=== PATIENT | male | born 1955 | race Caucasian/White ===

== ENCOUNTER → 2016-11-07 | Day surgery (SDC) | payer OTHER ==
[2016-10-23 10:39] VITALS: Ht 177.8 cm; Wt 79.5 kg
[~2016-11-07] VITALS: Ht 177.8 cm; Wt 79.5 kg
[~2016-11-07] MED LIST: 500ML BSS 0.3ML EPI 1:1000PF IRRIG ONE; ACETAMINOPHEN 325 MG TAB PO PRN; AMLO-110 PO; AMOX875T PO; AMVISC PLUS 0.8ML SYRINGE INT OCU ONE; ASPEC81 PO; AcetaZOLAMIDE 500 MG CAPCR ONE; AcetylCHOLine CHL OP SOL 1:100 2 ML BTL ONE; BSS FLUSH ONE; ENDOCOAT 0.85ML SYRINGE INT OCU ONE; EpINEphrine INJ 1MG/ML AMP 1 MG/ML AMP ONE; GABA1CAP4 PO; INSDGI SC; INSDGIPEN SC; INSUINJ14 SC; LACTATED RINGER'S 1000ML 500 ML IV SCH; LIDOCAINE 4% OP SOLN DROP CHARGE ONE; LIDOCAINE 4% OP SOLN DROP CHARGE OPR SCH; LIDOCAINE HCL 1% MPF 2 ML VIAL ONE; LISI-725 PO; LPT40 PO; MIDAZOLAM HCL 1 MG/ML 2ML VIAL ONE; MIX: 4ML BSS 1ML EPI 1:1000 PF TOP ONE; MOXIFLOXACIN OPH SOLN PER DROP CHARGE ONE; NRN/100 PO; NURSING VERBAL MED ORDER ONE; NVLG SQ; POVIDONE-IODINE OP SOLN 30 ML BTL ONE; PROPARACAINE 0.5% OP SOLN PER DROP CHARGE OPR SCH; TOBRAMYCIN/DEXAMETHASONE OPH OINT PER APPLN CHARGE ONE
--- NOTE | 2016-11-07 06:44 | History & Physical Bridge - SC ---
H&P Re-Evaluation Bridge Note: I have examined the patient, reviewed the History & Physical and in the interval since the performance of the History & Physical I have noted the following changes of clinical significance: No changes noted. Right eye cataract surgery.
[2016-11-07] MEDS: PHENYLEPHRINE HCL 2.5% OP SOLN PER DROP CHARGE OPR SCH ×3 (06:46→06:54)
[2016-11-07] MEDS: TROPICAMIDE 1% OP SOLN PER DROP CHARGE OPR SCH ×3 (06:47→06:55)
[2016-11-07] MEDS: CYCLOPENTOLATE HCL 1% OP SOLN PER DROP CHARGE OPR SCH ×3 (06:47→06:55)
[2016-11-07] MEDS: MOXIFLOXACIN OPH SOLN PER DROP CHARGE OPR SCH ×3 (06:48→06:56)
--- NOTE | 2016-11-07 08:18 | [facility] Post Operative Brief Note ---
Immediate Operative Summary Operative Date November 07, 2016. Pre-Operative Diagnosis Right eye cataract Post-Operative Diagnosis Same as preop Procedure(s) Performed Right Cataract Phacoemulsification With Intraocular Lens Implant Surgeon Dr. Rock Bandoleer Packer Surgeon(s) None Estimated Blood Loss 0 mL Findings right cataract Specimens None Complication(s) None Disposition
--- NOTE | 2016-11-07 08:21 | [facility] Operative Report ---
Operative Report Date of Service November 07, 2016. Operative Report Phaco with monofocal IOL DATE OF OPERATION: 11/07/16 PREOPERATIVE DIAGNOSIS: Senile nuclear cataract, right eye POSTOPERATIVE DIAGNOSIS: Senile nuclear cataract, right eye PROCEDURE PERFORMED: Phacoemulsification with intraocular lens implantation, right eye SURGEON: Dr. Vin Rock ANESTHESIA: Topical with 1% intracameral lidocaine and monitored anesthesia care COMPLICATIONS: None DESCRIPTION OF PROCEDURE: After positively identifying the patient both verbally and by wristband in the preoperative area, the right eye was marked as the operative eye. The patient was then brought back to the operating room by the anesthesia and nursing staff where they were given a drop of Lidocaine and betadine into the operative eye. They were then sterilely prepped and draped in the standard fashion typical for ophthalmic surgery. Steri-strips were placed along the upper eyelids to keep the lashes back, and a lid speculum was placed into the operative eye. At this point, a documented time out was performed with members of the ophthalmology, nursing, and anesthesia staffs all agreeing upon the correct patient, correct location for surgery, correct procedure, and correct type and power of intraocular lens to be implanted. The microscope was then swung into position. First, a paracentesis wound was made using a sideport blade. Then, in sequence, 1% preservative-free lidocaine followed by Endocoat viscoelastic was injected into the anterior chamber. Next , the main incision was made with a keratome blade in triplanar fashion. A sharp cystotome was introduced into the eye and used to create a tear in the anterior capsule, and Utrata forceps were used to try to create a circular capsulotomy. The inferior edge ran out and had to be rescued with the cystotome , and a new starting area was created superotemporally and finished with Utrata forceps. Hydrodissection was then performed with BSS on a flat-tip cannula. Next, the phacoemulsification handpiece was introduced into the eye and used to remove the nucleus in a [id number] fashion. This was done without complication and then the irrigation-aspiration handpiece was introduced into the eye and used to remove all remaining cortical and epinuclear material. A radialized tear into the posterior capsule was noted inferiorly and Amvisc was injected with no presentation of vitreous noted. Amvisc was then injected into the anterior chamber as well as into the capsular bag and using the lens injector system, an LI61AO 16.5 D lens, serial number [id number], and expiration date 05/2017 was injected into the sulcus and rotated into the correct position. Next, the irrigation-aspiration handpiece was used to remove all remaining Amvisc. BSS was used to hydrate the main wound, and then BSS was injected into the paracentesis site to reach physiologic pressure and then the main wound was checked and found to be watertight. Miochol was injected and demonstrated a round pupil. The patient was given drops of Vigamox and Tobradex ointment into the operative eye, and then the surrounding area was cleaned and dried. A clear plastic shield was placed over the eye and the patient was then sat up and taken from the operating room by the anesthesia staff having tolerated the procedure well and suffering no complications. DISPOSITION: The patient was returned to the recovery room in stable condition. I attest to the content of the Intraoperative Record and any orders documented therein. Any exceptions are noted below.
[2016-11-07 08:22] VITALS: TEMP 36.6
--- NOTE | 2016-11-07 08:22 | Discharge Instructions-SurgCtr ---
Discharge Instructions Date of Service November 07, 2016. Visit Reason for Visit: Cataract Right Eye Discharge Discharge Diagnosis / Problem: right cataract Discharge Goals Goal(s): Decrease discomfort, Improve function Activity Recommendations Activity Limitations: as noted below Anesthesia . Post Anesthesia Instructions: If you have had General Anesthesia or IV Sedation: * Do not drive today. * Resume driving when surgeon permits. * Do not make important decisions or sign legal documents today. * Call surgeon for: 1. Temperature elevations greater than 101 degrees F. 2. Uncontrollable pain. 3. Excessive bleeding. 4. Persistent nausea and vomiting. 5. Medication intolerance (nausea, vomiting or rash). * For nausea and vomiting use only clear liquids such as: tea, soda, bouillon until nausea subsides, then gradually increase diet as tolerated. * If you have any concerns or questions, call your surgeon's office. If physician is unavailable and it is an emergency, call 911 or go to the nearest emergency room. . Instructions / Follow-Up Instructions / Follow-Up ACTIVITY RECOMMENDATIONS: * Light activities. * You may walk outside, read, watch television. * You may notice redness on the white part of the eye and some blurry vision - this is normal. MEDICATIONS: Resume previous medications unless instructed otherwise by your surgeon. Start all eye drops at 10:30 am today: * Eye drops (today): Prednisone - one drop in operative eye every 2 hours while awake Polytrim - one drop in operative eye every 2 hours while awake Bromfenac - one drop in operative eye daily SPECIAL CARE INSTRUCTIONS: * Tape plastic shield over eye to sleep at night. Call your doctor at with any concerns or problems. FOLLOW UP VISIT: Follow-up with Dr Rock at [facility] as scheduled. Diet Recommendations Home Diet: no limitations Procedures Procedures Performed: Right Cataract Phacoemulsification With Intraocular Lens Implant Pending Studies Studies pending at discharge: no Medical Emergencies . Who to Call and When: Medical Emergencies: If at any time you feel your situation is an emergency, please call 911 immediately. . Non-Emergent Contact Non-Emergency issues call your: Surgeon . . "Provider Documentation" section prepared by Vin Rock. .
--- NOTE | 2016-11-07 08:34 | Anesthesia Progress Nt - [facility] ---
Anesthesia Post Op Note Date & Time November 07, 2016 at 08:34 Vital Signs Pain Intensity: 0 Vital Signs Past 12 Hours Date Time Temp Pulse Resp B/P Pulse Ox O2 Delivery O2 Flow Rate FiO2 11/07/16 08:22 36.6 68 16 170/75 100 Room Air 11/07/16 06:36 36.7 64 16 169/96 98 Room Air Notes Mental Status: alert / awake / arousable, participated in evaluation Pt Amnestic to Procedure: Yes Nausea / Vomiting: adequately controlled Pain: adequately controlled Airway Patency, RR, SpO2: stable & adequate BP & HR: stable & adequate Hydration State: stable & adequate Anesthetic Complications: no major complications apparent
[2016-11-07 08:58] VITALS: BP 150/80; PULSE 69; O2SAT 100
== END | disposition home or self-care (01) ==
LOC: X.SURG 06:08
PROVIDERS: ATTEND Ophthalmology
DX: H25.11 Age-related nuclear cataract, right eye (principal); E11.9 Type 2 diabetes mellitus without complications; Z79.4 Long term (current) use of insulin; Z83.3 Family history of diabetes mellitus; I10 Essential (primary) hypertension

== ENCOUNTER 2016-12-15 10:39 | Inpatient (IN) | payer OTHER ==
[2016-12-15] VITALS (9 sets, daily range): BP systolic 158–188; BP diastolic 82–105; PULSE 63–69; TEMP 36.3–37.1; O2SAT 99–100; BMI 25.1
[~2016-12-15] VITALS: Ht 177.8 cm; Wt 79.0 kg
[~2016-12-15 10:39] MED LIST changes: -500ML BSS 0.3ML EPI 1:1000PF IRRIG ONE; -ACETAMINOPHEN 325 MG TAB PO PRN; -AMLO-110 PO; -AMOX875T PO; -AMVISC PLUS 0.8ML SYRINGE INT OCU ONE; -AcetaZOLAMIDE 500 MG CAPCR ONE; -AcetylCHOLine CHL OP SOL 1:100 2 ML BTL ONE; -BSS FLUSH ONE; -ENDOCOAT 0.85ML SYRINGE INT OCU ONE; -EpINEphrine INJ 1MG/ML AMP 1 MG/ML AMP ONE; -GABA1CAP4 PO; -INSDGIPEN SC; -LACTATED RINGER'S 1000ML 500 ML IV SCH; -LIDOCAINE 4% OP SOLN DROP CHARGE ONE; -LIDOCAINE 4% OP SOLN DROP CHARGE OPR SCH; -LIDOCAINE HCL 1% MPF 2 ML VIAL ONE; -LPT40 PO; -MIDAZOLAM HCL 1 MG/ML 2ML VIAL ONE; -MIX: 4ML BSS 1ML EPI 1:1000 PF TOP ONE; -MOXIFLOXACIN OPH SOLN PER DROP CHARGE ONE; -NURSING VERBAL MED ORDER ONE; -NVLG SQ; -POVIDONE-IODINE OP SOLN 30 ML BTL ONE; -PROPARACAINE 0.5% OP SOLN PER DROP CHARGE OPR SCH; -TOBRAMYCIN/DEXAMETHASONE OPH OINT PER APPLN CHARGE ONE
[2016-12-15] MEDS ORDERED: LPT40 PO (11:05)
[2016-12-15] MEDS ORDERED: INSDGIPEN SC (11:05)
[2016-12-15] MEDS ORDERED: NVLG SQ (11:05)
--- NOTE | 2016-12-15 11:45 | EMERGENCY ROOM VISIT NOTE ---
History Report prepared by Lety: Wilman Ann Under the Supervision of: Dr. Jose Francisco Menon M.D. First contact with patient: 10:58 Chief Complaint: TOE PAIN, INJURY Stated Complaint: LEFT TOE INFECTION History of Present Illness The patient is a 61 year old male who presents to the Emergency Room with complaints of a left toe injury that began two days ago. The patient is currently not in any pain. At this time, the lift of a tractor fell on his toe. He thinks that it could be infected secondary to the color. He has a past medical history of diabetes. He denies any other symptoms. Source of History: patient Onset: two days ago Position: toe(s) (left third) Symptom Intensity: No pain Quality: other (No pain) Timing: constant Note: He denies any abnormal symptoms at this time. Review of Systems See HPI for pertinent positives & negatives. A total of 10 systems reviewed and were otherwise negative. Past Medical & Surgical Medical Problems: (1) Diabetic neuropathy (2) DM type 1 (diabetes mellitus, type 1) (3) History of osteomyelitis (4) PVD (peripheral vascular disease) (5) Stroke Surgical Problems: (1) H/O eye surgery (2) S/P amputation of lesser toe (3) S/P debridement Family History Diabetes mellitus Hypertension Social History Smoking Status: Never Smoker Drug Use: none Marital Status: single Occupation Status: retired Current/Historical Medications Scheduled Aspirin (Aspirin EC Low Dose), 81 MG PO QAM Atorvastatin (Atorvastatin Calcium), 40 MG PO QAM Gabapentin (Neurontin), 300 MG PO TID Insulin Aspart (Novolog), 1 DOSE SQ UD Insulin Glargine (Lantus Solostar), 40 UNITS SC QAM Lisinopril (Zestril), 20 MG PO QAM Allergies Coded Allergies: Levofloxacin (Verified Allergy, Unknown, "nervous", 12/15/16) Shrimp (Verified Adverse Reaction, Unknown, NAUSEA, 12/15/16) Physical Exam Vital Signs Date Time Temp Pulse Resp B/P (MAP) Pulse Ox O2 Delivery O2 Flow Rate FiO2 12/15/16 12:49 61 18 165/80 100 Room Air 12/15/16 10:50 36.6 84 16 149/84 98 Physical Exam GENERAL: Patient is a healthy-appearing well-nourished male HEAD: Normocephalic atraumatic EYES: Ocular movements intact pupils equal and react to light OROPHARYNX mucous membranes are moist no exudates present no erythema or edema present NECK: Supple no nuchal rigidity CHEST: Good equal expansion LUNGS: Clear and equal to auscultation CARDIAC: Normal S1 and S2 ABDOMEN: Soft nontender no guarding BACK: No CVA tenderness EXTREMITIES: Left third toe is necrotic. Bone is sticking out. Smells like pseudomonas. NEURO: Patient is following commands and answering questions appropriately. Alert and oriented x3 Cranial Nerves 2-12 grossly intact Medical Decision & Procedures ER Provider Diagnostic Interpretation: X-ray results as stated below per interpretation by me and the radiologist: LEFT TOE(S) MIN 2 VIEWS CLINICAL HISTORY: Third left pain trauma. Infection. COMPARISON: None. DISCUSSION: Erosive or destructive changes involving the middle phalanx of the left third toe. The distal phalanx. Of been surgically removed.. Surgical removal of the phalanges of the fourth toe as well as distal phalanx of the second toe. Linear pin traversing the distal aspect of the second metatarsal. Moderate soft tissue edema. IMPRESSION: Osteomyelitis middle phalanx left third toe. Resection of several phalanges of the second through fourth toes. Electronically signed by: Nathan Bazan M.D. 12/15/2016 11:46 AM Dictated Date/Time: 12/15/2016 11:44 AM Laboratory Results 12/15/16 11:50 Red Blood Count 3.87, Mean Corpuscular Volume 87.1, Mean Corpuscular Hemoglobin 30.2, Mean Corpuscular Hemoglobin Concent 34.7, Mean Platelet Volume 10.2, Neutrophils (%) (Auto) 73.1, Lymphocytes (%) (Auto) 16.7, Monocytes (%) (Auto) 8.0, Eosinophils (%) (Auto) 0.9, Basophils (%) (Auto) 0.2, Neutrophils # (Auto) 4.88, Lymphocytes # (Auto) 1.11, Monocytes # (Auto) 0.53, Eosinophils # (Auto) 0.06, Basophils # (Auto) 0.01 12/15/16 11:50 Test 12/15/16 11:50 White Blood Count 6.66 K/uL (4.8-10.8) Red Blood Count 3.87 M/uL (4.7-6.1) Hemoglobin 11.7 g/dL (14.0-18.0) Hematocrit 33.7 % (42-52) Mean Corpuscular Volume 87.1 fL (80-100) Mean Corpuscular Hemoglobin 30.2 pg (25-34) Mean Corpuscular Hemoglobin Concent 34.7 g/dl (32-36) Platelet Count 280 K/uL (130-400) Mean Platelet Volume 10.2 fL (7.4-10.4) Neutrophils (%) (Auto) 73.1 % Lymphocytes (%) (Auto) 16.7 % Monocytes (%) (Auto) 8.0 % Eosinophils (%) (Auto) 0.9 % Basophils (%) (Auto) 0.2 % Neutrophils # (Auto) 4.88 K/uL (1.4-6.5) Lymphocytes # (Auto) 1.11 K/uL (1.2-3.4) Monocytes # (Auto) 0.53 K/uL (0.11-0.59) Eosinophils # (Auto) 0.06 K/uL (0-0.5) Basophils # (Auto) 0.01 K/uL (0-0.2) RDW Standard Deviation 39.5 fL (36.4-46.3) RDW Coefficient of Variation 12.4 % (11.5-14.5) Immature Granulocyte % (Auto) 1.1 % Immature Granulocyte # (Auto) 0.07 K/uL (0.00-0.02) Prothrombin Time 12.5 SECONDS (9.0-12.0) Prothromb Time International Ratio 1.2 (0.9-1.1) Anion Gap 8.0 mmol/L (3-11) Est Creatinine Clear Calc Drug Dose 24.9 ml/min Estimated GFR () 22.4 Estimated GFR (Non- 19.4 BUN/Creatinine Ratio 17.9 (10-20) Calcium Level 8.6 mg/dl (8.5-10.1) Labs reviewed by ED physician. Medications Administered Medications (Trade) Dose Ordered Sig/Pati Route Start Time Stop Time Status Last Admin Dose Admin Piperacillin Sod/ Tazobactam Sod (Zosyn Iv) 4.5 gm NOW STAT IV 12/15/16 12:02 12/15/16 12:04 DC 12/15/16 12:10 4.5 GM Daptomycin 480 mg/ Sodium Chloride 59.6 ml @ 100 mls/hr NOW STAT IV 12/15/16 12:20 12/15/16 12:55 DC 12/15/16 12:51 100 MLS/HR Sodium Chloride 1,000 ml @ 999 mls/hr Q1H1M STAT IV 12/15/16 12:39 12/15/16 13:39 12/15/16 12:50 999 MLS/HR ED Course 1058: Past medical records reviewed. The patient was evaluated in room A4. A complete history and physical examination was performed. 1202: Ordered Zosyn Iv 4.5 gm IV 1205:l I spoke with Dr. Chaidez of orthopedics at this time. Please see the consultation note for further information. 1220: Ordered Daptomycin 480 mg/ Sodium Chloride 59.6 ml @ 100 mls/hr IV 1239: Ordered Sodium Chloride 1000 ml @ 999 mls/hr IV 1243: Upon reexamination the patient is resting. I discussed results and treatment plan with the patient. He verbalizes agreement and understanding. I spoke with Jonathan Edwards PA-C from the [facility] Hospitalist Service. The patient will be evaluated for further management. Medical Decision Differential diagnosis: Etiologies such as cellulitis, abscess, MRSA infection, DVT, necrotizing fasciitis, dermatitis, drug eruption, as well as others were entertained.. Medication Reconciliation: I attest that I have personally reviewed the patient' s current medication list Blood Pressure Screening: Patient was found to have normal blood pressure on screening and does not require follow up. His is a 61-year-old male who presents emergency department complaining of toe injury that occurred on . The bone is sticking out of the toe in the emergency department and there is a whitish discharge. I suspect that is grossly infected and the toe itself appears necrotic. The patient is in acute renal failure therefore an IV was established and he was given a normal saline bolus. He was started on Zosyn as well as daptomycin. I did discuss the case with both the hospitalist as well as orthopedics who were in agreement with the treatment plan. Consults Time Called: 1200 Consulting Physician: Dr. Chaidez - Ortho Returned Call: 1205 We discussed the patient's case. He said that the patient should be admitted to medicine, and he will evaluate the patient on Saturday. Additional Consults: Time Called: 1240 Consulted Physician: Clemente Rouse PA-C Returned Call: 1243 Additional Comments: He will be evaluating the patient for further management and care. Impression Primary Impression: Acute renal failure Additional Impression: Toe infection Scribe Attestation The scribe's documentation has been prepared under my direction and personally reviewed by me in its entirety. I confirm that the note above accurately reflects all work, treatment, procedures, and medical decision making performed by me. Departure Information Dispostion Being Evaluated By Hospitalist Referrals Bravo Robles III, M.D. (PCP) Patient Instructions [facility] Problem Qualifiers Primary Impression: Acute renal failure Acute renal failure type: unspecified Qualified Codes: N17.9 - Acute kidney failure, unspecified
--- NOTE | 2016-12-15 11:48 | DIAGNOSTIC IMAGING REPORT ---
LEFT TOE(S) MIN 2 VIEWS CLINICAL HISTORY: Third left pain trauma. Infection. COMPARISON: None. DISCUSSION: Erosive or destructive changes involving the middle phalanx of the left third toe. The distal phalanx. Of been surgically removed.. Surgical removal of the phalanges of the fourth toe as well as distal phalanx of the second toe. Linear pin traversing the distal aspect of the second metatarsal. Moderate soft tissue edema. IMPRESSION: Osteomyelitis middle phalanx left third toe. Resection of several phalanges of the second through fourth toes. Electronically signed by: Nathan Bazan M.D. 12/15/2016 11:46 AM Dictated Date/Time: 12/15/2016 11:44 AM
[2016-12-15] MEDS ORDERED: PIPERACILLIN/TAZOBACTAM 4.5 GM/100ML D5W IV STA (12:02)
[2016-12-15 12:17] LABS: BASO % 0.2 %; BASO ABS # 0.01 K/uL (0-0.2); COMPLETE YES; EOS % 0.9 %; HEMATOCRIT 33.7 % (42-52); IG% 1.1 %; LYMPH % 16.7 %; LYMPH ABS # 1.11 K/uL (1.2-3.4); MEAN CELL VOLUME 87.1 fL (80-100); MEAN CORPUSCULAR HEMOGLOBIN 30.2 pg (25-34); MEAN CORPUSCULAR HGB CONC 34.7 g/dl (32-36); MEAN PLATELET VOLUME 10.2 fL (7.4-10.4); NEUT % 73.1 %; PLATELET COUNT 280 K/uL (130-400); RED BLOOD COUNT 3.87 M/uL (4.7-6.1); WHITE BLOOD COUNT 6.66 K/uL (4.8-10.8)
[2016-12-15] MEDS ORDERED: DAPTOmycin IV 480 MG in SODIUM CHLORIDE 0.9% 50ML 50 ML IV STA (12:20)
[2016-12-15 12:34] LABS: BUN/CREATININE RATIO 17.9 (10-20); CALCIUM 8.6 mg/dl (8.5-10.1); CREATININE 3.3 mg/dl (0.60-1.40)
[2016-12-15] MEDS ORDERED: SODIUM CHLORIDE 0.9% 1000ML 1,000 ML IV STA (12:39)
[2016-12-15 13:12] LABS: INR 1.2 (0.9-1.1); PROTHROMBIN TIME (PATIENT) 12.5 SECONDS (9.0-12.0)
--- NOTE | 2016-12-15 13:34 | History and Physical ---
History & Physical Date & Time of Service: Dec 15, 2016 at 13:24 Chief Complaint: Left Toe Infection Primary Care Physician: Bravo Robles III, M.D. History of Present Illness Source: patient, family (Brother present) Attending: Dr. Stewart This is a 61 yo male that has a history of DM Type I with previous multiple left toe amputations that injured his left 3rd toe 2 days ago. Last night he began to clean his injured toe to avoid infection and pulled a scab off revealing exposed bone. He then presented to the ED this morning for further evaluation and treatment. He has no pain to the toe and was started on Daptomycin IV. Ortho has been consulted and Dr. Chaidez stated that he will most likely entertain amputation in the OR tomorrow. Patient also found to be in acute renal failure with a creatinine of 3.3 with BUN of 59. Aside from his acute injury, the patient has no other complaints. He denies SOB, chest pain, nausea, vomiting, diarrhea, recent illness or travel. Past Medical/Surgical History Medical Problems: (1) Diabetic neuropathy Status: Chronic (2) DM type 1 (diabetes mellitus, type 1) Status: Chronic (3) History of osteomyelitis Status: Chronic (4) PVD (peripheral vascular disease) Status: Chronic Surgical Problems: (1) H/O eye surgery Status: Chronic (2) S/P amputation of lesser toe Permanent Comment: right second and third toe Status: Chronic (3) S/P debridement Permanent Comment: 02/03/2016- debridement L foot wound dehiscence Status: Chronic Family History Diabetes mellitus Hypertension Social History Smoking Status: Never Smoker Alcohol Use: socially (2 or 3 times per year) Drug Use: none Marital Status: single 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) Immunizations History of Influenza Vaccine: N/A Influenza Vaccine Date: Jul 05, 2012 History of Tetanus Vaccine?: Unknown History of Pneumococcal: Unknown History of Hepatitis B Vaccine: Unknown Multi-Drug Resistant Organisms History of MDRO: No Allergies Coded Allergies: Levofloxacin (Verified Allergy, Unknown, "nervous", 12/15/16) Shrimp (Verified Adverse Reaction, Unknown, NAUSEA, 12/15/16) Home Medications Scheduled Aspirin (Aspirin EC Low Dose), 81 MG PO QAM Atorvastatin (Atorvastatin Calcium), 40 MG PO QAM Gabapentin (Neurontin), 300 MG PO TID Insulin Aspart (Novolog), 1 DOSE SQ UD Insulin Glargine (Lantus Solostar), 40 UNITS SC QAM Lisinopril (Zestril), 20 MG PO QAM Review of Systems A total of 12 systems was reviewed and is negative other than as listed above in the HPI Physical Exam Vital Signs Date Time Temp Pulse Resp B/P (MAP) Pulse Ox O2 Delivery O2 Flow Rate FiO2 12/15/16 12:49 61 18 165/80 100 Room Air 12/15/16 10:50 36.6 84 16 149/84 98 Vital Signs - as noted below Laboratory Data - as noted below Physical Exam: General - NAD, Pleasant Eyes - No icterus, gaze conjugate. PERRL ENT - Mucosa moist, no lesions or candidiasis Neck - Supple, No JVD. No bruits or stridor Lungs - No bronchospasm, rales, or rhonchi. Good aeration Heart - Regular, rate controlled. No appreciation of murmurs Abdomen - Soft, NT, ND, BS present. No pain with palpation Extremities - No edema, pedal pulses intact. Dressing dry and intact to left 3rd toe Neuro - A&OX3. No pronator drift. Cerebellar function intact with NIRAJ, FTN, HTS. Diagnostics Laboratory Results Results Past 24 Hours Test 12/15/16 11:50 Range/Units White Blood Count 6.66 4.8-10.8 K/uL Red Blood Count 3.87 4.7-6.1 M/uL Hemoglobin 11.7 14.0-18.0 g/dL Hematocrit 33.7 42-52 % Mean Corpuscular Volume 87.1 80-100 fL Mean Corpuscular Hemoglobin 30.2 25-34 pg Mean Corpuscular Hemoglobin Concent 34.7 32-36 g/dl Platelet Count 280 130-400 K/uL Mean Platelet Volume 10.2 7.4-10.4 fL Neutrophils (%) (Auto) 73.1 % Lymphocytes (%) (Auto) 16.7 % Monocytes (%) (Auto) 8.0 % Eosinophils (%) (Auto) 0.9 % Basophils (%) (Auto) 0.2 % Neutrophils # (Auto) 4.88 1.4-6.5 K/uL Lymphocytes # (Auto) 1.11 1.2-3.4 K/uL Monocytes # (Auto) 0.53 0.11-0.59 K/uL Eosinophils # (Auto) 0.06 0-0.5 K/uL Basophils # (Auto) 0.01 0-0.2 K/uL RDW Standard Deviation 39.5 36.4-46.3 fL RDW Coefficient of Variation 12.4 11.5-14.5 % Immature Granulocyte % (Auto) 1.1 % Immature Granulocyte # (Auto) 0.07 0.00-0.02 K/uL Prothrombin Time 12.5 9.0-12.0 SECONDS Prothromb Time International Ratio 1.2 0.9-1.1 Sodium Level 143 136-145 mmol/L Potassium Level 5.0 3.5-5.1 mmol/L Chloride Level 111 98-107 mmol/L Carbon Dioxide Level 24 21-32 mmol/L Anion Gap 8.0 3-11 mmol/L Blood Urea Nitrogen 59 7-18 mg/dl Creatinine 3.30 0.60-1.40 mg/dl Est Creatinine Clear Calc Drug Dose 24.9 ml/min Estimated GFR () 22.4 Estimated GFR (Non- 19.4 BUN/Creatinine Ratio 17.9 10-20 Random Glucose 184 70-99 mg/dl Calcium Level 8.6 8.5-10.1 mg/dl Microbiology Results 12/15/16 Blood Culture, Received Pending 12/15/16 Blood Culture, Received Pending 12/15/16 Gram Stain, Received Pending 12/15/16 Wound Culture, Received Pending Diagnostic Radiology LEFT TOE(S) MIN 2 VIEWS CLINICAL HISTORY: Third left pain trauma. Infection. COMPARISON: None. DISCUSSION: Erosive or destructive changes involving the middle phalanx of the left third toe. The distal phalanx. Of been surgically removed.. Surgical removal of the phalanges of the fourth toe as well as distal phalanx of the second toe. Linear pin traversing the distal aspect of the second metatarsal. Moderate soft tissue edema. IMPRESSION: Osteomyelitis middle phalanx left third toe. Resection of several phalanges of the second through fourth toes. Electronically signed by: Nathan Bazan M.D. 12/15/2016 11:46 AM Echo from January 2016 Interpretation Summary * Name: SAVANA FISCHER Study Date: 02/08/2016 08:16 AM BP: 142/76 mmHg Patient Location: - HR: 68 : 1955 (M/d/yyyy) Gender: Male Height: 70 in Age: 60 yrs Ethnicity: [place] Weight: 174 lb Ordered By: Gisela Goodrich MDPerformed By: Ludy Mcqueen Reason For Study: STROKE BSA: 2.0 m2 History: STROKE, DIABETES, SEPSIS. * The left ventricle is normal in size. There is normal left ventricular wall thickness. Left ventricular systolic function is normal. The left ventricular wall motion is normal. Ejection Fraction = 60-65%. Procedure Details * A complete two-dimensional transthoracic echocardiogram was performed (2D, M- mode, Doppler and color flow Doppler). A saline contrast injection was performed to assess for cardiac shunting. The injection was performed through an intravenous line in the right arm. A total of 20 cc of agitated saline was given. Left Ventricle * The left ventricle is normal in size. * There is normal left ventricular wall thickness. * Ejection Fraction = 60-65%. * Left ventricular systolic function is normal. * The left ventricular wall motion is normal. Right Ventricle * The right ventricle is normal in size and function. Atria * The left atrial size is normal. * Right atrial size is normal. * No ASD detected; PFO is not assessed. Mitral Valve * The mitral valve anatomy is normal. * There is no mitral valve stenosis. * There is trace mitral regurgitation. Tricuspid Valve * The tricuspid valve anatomy is normal. * There is no tricuspid stenosis. * There is trace tricuspid regurgitation. Aortic Valve * The aortic valve is trileaflet. * No hemodynamically significant valvular aortic stenosis. * No aortic regurgitation is present. Pulmonic Valve * The pulmonic valve is not well visualized. Great Vessels * The aortic root is normal size. Pericardium/Pleural * There is no pericardial effusion. Great Vessels * Normal inferior vena cava diameter and respiratory variation suggests normal central venous pressure. Impression Assessment and Plan CRUSH INJURY OF LEFT 3RD TOE Exposed bone No significant bleeding Denies pain Ortho consult Anticipate need for amputation ABX with Zosyn and Daptomycin ID consulted - spoke with Dr. Salgado IDDM TYPE I Uses Lantus and Novolog SSI at home Continue while inpatient with glycemic consult per pharmacy Random glucose 131 Hold Lantus for anticipated surgery tomorrow PERIPHERAL NEUROPATHY Continue Gabapentin Frequent pain checks due to crush injury of left toe RENAL Chronic kidney disease stage III with GFR 30-59 Currently in acute failure with Dried Yeast Supervisor of 3.3 IV hydration - NSS at 125 mL/hr Repeat Dried Yeast Supervisor at 1700 3.1 Continue fluid hydration Strict I&Os Appears to be volume contracted with BUN of 59 PERIPHERAL VASCULAR DISEASE Not on anticoagulation or antiplatelet agents as an outpatient Good pulses appreciated in all extremities Monitor clinically HTN Lisinopril 20 mg PO daily as an outpatient Hydralazine 10 mg Q6H ordered First dose given with marginal results Heart rate in the 60s DVT PROPHYLAXIS Heparin Sub Q pending surgical procedure Please refer to Dr. Stewart's Addendum for further recommendations. Level of Care Med/Surg Resuscitation Status FULL RESUSCITATION VTE Prophylaxis VTE Risk Assessment Done? Y/N: Yes Risk Level: Moderate Given or contraindicated: Unfractionated heparin SQ Social Service Consult None Apply Note ATTENDING ADDENDUM Record reviewed. Patient interviewed and examined. Care coordinated with Jonathan Edwards PA-C. Please refer to her documentation for patient's history. Briefly, 61-year-old diabetic who injured his left third toe a few days ago when a front cold press loader fell upon it. EXAM: General- no acute distress VS- as noted HEENT- anicteric Neck- no JVD Lungs- clear to auscultation Heart- RRR Abdomen- normal bowel sounds, soft, nontender Extremities- trace pretibial edema; right DP palpable; other pedal pulses not palpable; capillary refill toes of both feet 1-2 seconds; status post amputation of left fourth and right third toes; status post distal amputation of multiple other toes; ulcer measuring approximately 1 cm lateral aspect of left third toe, extending to deep tissue, with pearly drainage Neuro- alert DATA: Lab studies as noted. ASSESSMENT AND PLAN: Osteomyelitis left third toe. IV antibiotic therapy with daptomycin and piperacillin/tazobactam. Orthopedics consulted for surgical management. KEN. CKD with superimposed acute kidney injury. Serum creatinine now elevated, possibly secondary to volume depletion. Hold lisinopril. IV fluids. Avoid potential nephrotoxins. Please refer to BERT Edwards's documentation for discussion of other issues. Bravo Stewart MD .
[2016-12-15] MEDS ORDERED: ONDANSETRON INJ 2 MG/ML 2 ML VIAL IV PRN (14:30)
[2016-12-15] MEDS ORDERED: GLUCAGON FOR INJ 1 MG VIAL SQ PRN (14:30)
[2016-12-15] MEDS ORDERED: MAGNESIUM HYDROXIDE SUSP 30 ML UDC PO PRN (14:30)
[2016-12-15] MEDS ORDERED: GLUCOSE 40% GEL 15 GM TUBE PO PRN (14:30)
[2016-12-15] MEDS ORDERED: DEXTROSE 50% 50 ML SYR IV PRN (14:30)
[2016-12-15] MEDS ORDERED: ACETAMINOPHEN 325 MG TAB PO PRN (14:30)
[2016-12-15] MEDS ORDERED: GLUCOSE 10 TABS/TUBE PO PRN (14:30)
[2016-12-15] MEDS ORDERED: DC ALL PREVIOUSLY ORDERED DIABETES MEDS ONE (14:30)
[2016-12-15] MEDS ORDERED: ALUMINUM/MAGNESIUM/SIMETH (MAALOX MAX) 30 ML UDC PO PRN (14:30)
[2016-12-15] MEDS ORDERED: POLYETHYLENE (MIRALAX) 17 GM PACK PO PRN (15:15)
[2016-12-15] MEDS ORDERED: PHARMACY GLYCEMIC MGMT CONSULT PRN (15:22)
[2016-12-15] MEDS ORDERED: PIPERACILL/TAZOBAC CONSULT ACTIVE PRN (15:30)
[2016-12-15] MEDS: HEPARIN SOD 5000 UNIT/0.5 ML CARP SQ SCH ×2 (15:30→21:17)
--- NOTE | 2016-12-15 15:40 | Pharmacy Progress Note ---
Glycemic Control Intl Consult Date of Service Dec 15, 2016. Scope Glycemic Pharmacist consulted by Fabi Edwards on 12/15/16 for glycemic control and to write orders per [facility] inpatient glycemic control protocol Objective Weight (Kilograms): 79.000 Accuchecks BSG (last 24hrs): Test 12/15/16 11:50 12/15/16 14:47 Random Glucose 184 mg/dl (70-99) Bedside Glucose 131 mg/dl (70-99) Laboratory Data (last 24hrs) Test 12/15/16 11:50 Anion Gap 8.0 mmol/L BUN/Creatinine Ratio 17.9 Blood Urea Nitrogen 59 mg/dl Creatinine 3.30 mg/dl Potassium Level 5.0 mmol/L Sodium Level 143 mmol/L White Blood Count 6.66 K/uL Red Blood Count 3.87 M/uL Hemoglobin 11.7 g/dL Hematocrit 33.7 % Mean Corpuscular Volume 87.1 fL Mean Corpuscular Hemoglobin 30.2 pg Mean Corpuscular Hemoglobin Concent 34.7 g/dl Platelet Count 280 K/uL Mean Platelet Volume 10.2 fL Neutrophils (%) (Auto) 73.1 % Lymphocytes (%) (Auto) 16.7 % Monocytes (%) (Auto) 8.0 % Eosinophils (%) (Auto) 0.9 % Basophils (%) (Auto) 0.2 % Neutrophils # (Auto) 4.88 K/uL Lymphocytes # (Auto) 1.11 K/uL Monocytes # (Auto) 0.53 K/uL Eosinophils # (Auto) 0.06 K/uL Basophils # (Auto) 0.01 K/uL Recent Pertinent Medications Outpatient Anti-diabetic Regimen: * Lantus 40 untis qAM, Novolog per SS * A1c outdated from 2016. Updated A1c ordered with tomorrow's AM labs. Risk Factors for Insulin Resistance: * Infection: Osteomyelitis of toe; On Daptomycin and Zosyn * Recent Surgery: Plan for OR tomorrow for toe amputation * Diet: AHA/DM1 --> NPO after 00 in prep for OR Assessment & Plan ASSESSMENT: * ADA & AACE recommend a goal blood sugar range 140-180 mg/dl for the majority of critically ill & non-critically ill patients. However, more stringent targets may be selected in individual cases. * 61 yo male admitted for open L toe wound (bone exposed) secondary to injury. Pt has a h/o of multiple L toe amputations in the past. * Pt with h/o type 1 diabetes. He has been followed by the pharmacy glycemic service during past admissions. * BSG on admission today was 184 mg/dl. 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 No additional Lantus needed today. * During past admission the pt required about 50% of Lantus outpatient dose. Will use past admission data to guide dosing of Lantus and Novolog at least initially PLAN FOR INPATIENT GLYCEMIC CONTROL: * Start tomorrow AM -- Lantus 10 units SQ BID * Novolog ACHS * Set correction factor to 25 mg/dl/unit * Set carb ratio to 1 unit per 8 grams CHO consumed * Set goal range to Low 110 mg/dL - High 150 mg/dL * Please note that the plan above was derived based on current level of insulin resistance and hospital stress. These recommendations are appropriate for inpatient admission only. Plan of care upon discharge will need to be reassessed to avoid potential outpatient hypo/hyperglycemia. Thank you.
[2016-12-15] MEDS ORDERED: DAPTOMYCIN CONSULT ACTIVE PRN ×2 (15:45)
[2016-12-15] MEDS: HydrALAZINE 10 MG TAB PO PRN ×2 (16:06→21:55)
[2016-12-15] MEDS: PIPERACILL/TAZOBAC IV 3.375 GM in DEXTROSE 5% 100ML 100 ML IV SCH ×2 (16:32→23:58)
[2016-12-15 17:20] LABS: BUN/CREATININE RATIO 17.3 (10-20); CALCIUM 8.5 mg/dl (8.5-10.1); CREATININE 3.1 mg/dl (0.60-1.40); POTASSIUM 4.9 mmol/L (3.5-5.1)
[2016-12-15] MEDS: SODIUM CHLORIDE 0.9% 1000ML 1,000 ML IV SCH (17:46)
[2016-12-15] MEDS: INSULIN ASPART 100 UNITS/ML 3 ML PEN SC SCH ×2 (18:00→21:16)
[2016-12-15] MEDS ORDERED: CLONIDINE HCL 0.1 MG TAB PO PRN (20:45)
[2016-12-15] MEDS ORDERED: AMLODIPINE BESYLATE 5 MG TAB PO ONE (21:15)
[2016-12-15] MEDS: GABAPENTIN 300 MG CAP PO SCH (21:51)
--- NOTE | 2016-12-15 22:10 | DIAGNOSTIC IMAGING REPORT ---
CHEST ONE VIEW PORTABLE CLINICAL HISTORY: osteomyelitis dyspnea COMPARISON STUDY: 02/17/2016 FINDINGS: The bones soft tissues and hemidiaphragms are normal. The cardiomediastinal silhouette is normal. The lungs are clear. The pulmonary vasculature is normal. IMPRESSION: Negative chest. Electronically signed by: Nathan Bazan M.D. 12/15/2016 10:09 PM Dictated Date/Time: 12/15/2016 10:09 PM
[2016-12-16] VITALS (11 sets, daily range): BP systolic 132–186; BP diastolic 66–98; PULSE 55–71; TEMP 36.3–36.6; O2SAT 96–100
[2016-12-16] MEDS ORDERED: NURSING VERBAL MED ORDER ONE
[2016-12-16] MEDS: SODIUM CHLORIDE 0.9% 1000ML 1,000 ML IV SCH ×3 (04:30→18:47)
[2016-12-16] MEDS: INSULIN ASPART 100 UNITS/ML 3 ML PEN SC SCH ×4 (05:52→21:17)
[2016-12-16 07:06] LABS: HEMATOCRIT 31.3 % (42-52); MEAN CELL VOLUME 86.9 fL (80-100); MEAN CORPUSCULAR HEMOGLOBIN 29.4 pg (25-34); MEAN CORPUSCULAR HGB CONC 33.9 g/dl (32-36); MEAN PLATELET VOLUME 10.1 fL (7.4-10.4); PLATELET COUNT 266 K/uL (130-400); WHITE BLOOD COUNT 6.76 K/uL (4.8-10.8)
[2016-12-16 07:39] LABS: BUN/CREATININE RATIO 15.5 (10-20); CALCIUM 8.1 mg/dl (8.5-10.1); CREATININE 3.1 mg/dl (0.60-1.40); POTASSIUM 5.4 mmol/L (3.5-5.1)
[2016-12-16] MEDS: PIPERACILL/TAZOBAC IV 3.375 GM in DEXTROSE 5% 100ML 100 ML IV SCH ×3 (07:45→23:48)
[2016-12-16] MEDS: INSULIN GLARGINE SOLOSTAR 100 UNITS/ML 3 ML PEN SC SCH ×2 (07:49→21:15)
--- NOTE | 2016-12-16 08:17 | Progress Note ---
Medicine Progress Note Date & Time of Visit: Dec 16, 2016 at 08:00 . Subjective No fever. No chest pain. No cough or SOB. No nausea, vomiting, diarrhea. No urinary symptoms. No foot pain. Schedule for OR this morning. NPO. . Objective Last 8 Hrs Date Time Temp Pulse Resp B/P (MAP) Pulse Ox O2 Delivery O2 Flow Rate FiO2 12/16/16 07:06 36.6 64 19 133/75 (94) 96 Room Air 12/16/16 03:26 70 139/75 (96) Physical Exam: General- no distress Neck- no JVD Lungs- clear Heart- RRR Abdomen- + BS, soft, nontender Extremities- no pretibial edema or calf tenderness; mild erythema left medial calf; ulcer lateral left 3rd toe Neuro- alert, oriented . Laboratory Results: Last 24 Hours Test 12/15/16 11:50 12/15/16 14:47 12/15/16 16:50 12/15/16 17:03 White Blood Count 6.66 K/uL Red Blood Count 3.87 M/uL Hemoglobin 11.7 g/dL Hematocrit 33.7 % Mean Corpuscular Volume 87.1 fL Mean Corpuscular Hemoglobin 30.2 pg Mean Corpuscular Hemoglobin Concent 34.7 g/dl Platelet Count 280 K/uL Mean Platelet Volume 10.2 fL Neutrophils (%) (Auto) 73.1 % Lymphocytes (%) (Auto) 16.7 % Monocytes (%) (Auto) 8.0 % Eosinophils (%) (Auto) 0.9 % Basophils (%) (Auto) 0.2 % Neutrophils # (Auto) 4.88 K/uL Lymphocytes # (Auto) 1.11 K/uL Monocytes # (Auto) 0.53 K/uL Eosinophils # (Auto) 0.06 K/uL Basophils # (Auto) 0.01 K/uL RDW Standard Deviation 39.5 fL RDW Coefficient of Variation 12.4 % Immature Granulocyte % (Auto) 1.1 % Immature Granulocyte # (Auto) 0.07 K/uL Prothrombin Time 12.5 SECONDS Prothromb Time International Ratio 1.2 Sodium Level 143 mmol/L 145 mmol/L Potassium Level 5.0 mmol/L 4.9 mmol/L Chloride Level 111 mmol/L 114 mmol/L Carbon Dioxide Level 24 mmol/L 23 mmol/L Anion Gap 8.0 mmol/L 8.0 mmol/L Blood Urea Nitrogen 59 mg/dl 54 mg/dl Creatinine 3.30 mg/dl 3.10 mg/dl Est Creatinine Clear Calc Drug Dose 24.9 ml/min 26.5 ml/min Estimated GFR () 22.4 24.2 Estimated GFR (Non- 19.4 20.9 BUN/Creatinine Ratio 17.9 17.3 Random Glucose 184 mg/dl 116 mg/dl Calcium Level 8.6 mg/dl 8.5 mg/dl Hepatitis C Antibody Screen NEG Bedside Glucose 131 mg/dl 113 mg/dl Test 12/15/16 20:36 12/15/16 23:52 12/16/16 00:00 12/16/16 05:49 Bedside Glucose 248 mg/dl 205 mg/dl 168 mg/dl Test 12/16/16 06:43 White Blood Count 6.76 K/uL Red Blood Count 3.60 M/uL Hemoglobin 10.6 g/dL Hematocrit 31.3 % Mean Corpuscular Volume 86.9 fL Mean Corpuscular Hemoglobin 29.4 pg Mean Corpuscular Hemoglobin Concent 33.9 g/dl RDW Standard Deviation 39.6 fL RDW Coefficient of Variation 12.3 % Platelet Count 266 K/uL Mean Platelet Volume 10.1 fL Sodium Level 143 mmol/L Potassium Level 5.4 mmol/L Chloride Level 113 mmol/L Carbon Dioxide Level 21 mmol/L Anion Gap 9.0 mmol/L Blood Urea Nitrogen 48 mg/dl Creatinine 3.10 mg/dl Est Creatinine Clear Calc Drug Dose 26.5 ml/min Estimated GFR () 24.2 Estimated GFR (Non- 20.9 BUN/Creatinine Ratio 15.5 Random Glucose 173 mg/dl Calcium Level 8.1 mg/dl Date/Time Source Procedure Growth Status 12/15/16 12:00 Blood Blood Culture Pending Received 12/15/16 11:50 Blood Blood Culture Pending Received 12/15/16 11:50 Incision Site Toe Left 3 Gram Stain - Final Resulted 12/15/16 11:50 Incision Site Toe Left 3 Wound Culture Pending Resulted Assessment & Plan OSTEOMYELITIS LEFT 3rd TOE Afebrile. Wound and blood cultures pending. Orthopedics consulted. Continue IV antibiotic therapy with daptomycin and piperacillin / tazobactam. HYPERTENSION BP's as high as 188 systolic. Lisinopril held due to KEN. Started on amlodipine. Clonidine or hydralazine PRN. BP this morning = 133/75. Follow and titrate Rx. ACUTE KIDNEY INJURY / CKD III CKD III due to diabetic nephropathy with baseline creatinine of 1.4 on 10/17/16. Serum creatinine on admission 3.3. Denies regular use of NSAID's. Acute kidney injury probably due to volume depletion and / or sepsis. Holding lisinopril. IV fluids. Creatinine today = 3.1. Consult Nephropathy. Follow. DM TYPE 1 History of poor control. Hgb A1C pending. Pharmacy consulted for glycemic management. Lantus + NovoLog per protocol. FBS this morning = 168. VTE PROPHYLAXIS SQ heparin - hold for OR. Ambulate as able. DISPOSITION Expected discharge to home. Family Medicine follow-up with Dr. Robles. . Consultants: Orthopedics with Dr. Chaidez. . Procedures: IV antibiotics . Current Inpatient Medications: Current Inpatient Medications Medications (Trade) Dose Ordered Sig/Pati Route Start Time Stop Time Status Last Admin Dose Admin Acetaminophen (Tylenol Tab) 650 mg Q4H PRN PO 12/15/16 14:30 01/14/17 14:29 Al Hydrox/Mg Hydrox/Simethicone (Maalox Max Susp) 15 ml Q4H PRN PO 12/15/16 14:30 01/14/17 14:29 Magnesium Hydroxide (Milk Of Magnesia Susp) 30 ml Q6H PRN PO 12/15/16 14:30 01/14/17 14:29 Polyethylene (Miralax Powder Packet) 17 gm DAILY PRN PO 12/15/16 15:15 01/14/17 15:14 Ondansetron HCl (Zofran Inj) 4 mg Q6H PRN IV 12/15/16 14:30 01/14/17 14:29 Heparin Sodium (Porcine) (Heparin Sq 5000 Unit/0.5ml) 5,000 unit Q12 SQ 12/15/16 15:30 01/14/17 15:29 12/15/16 21:17 5,000 UNIT Glucose (Glucose 40% Gel) 15-30 GRAMS 15 GRAMS... UD PRN PO 12/15/16 14:30 01/14/17 14:29 Glucose (Glucose Chew Tab) 4-8 Tablets 4 Tabl... UD PRN PO 12/15/16 14:30 01/14/17 14:29 Dextrose (Dextrose 50% 50ML Syringe) 25-50ML OF 50% DW IV FOR... UD PRN IV 12/15/16 14:30 01/14/17 14:29 Glucagon (Glucagon Inj) 1 mg UD PRN SQ 12/15/16 14:30 01/14/17 14:29 Miscellaneous Information (Consult Glycemic Management Pharmacy) 1 ea UD PRN N/A 12/15/16 15:22 01/14/17 15:21 Daptomycin 480 mg/ Sodium Chloride 59.6 ml @ 100 mls/hr Q48H IV 12/17/16 12:00 01/28/17 11:59 Piperacillin Sod/ Tazobactam Sod 3.375 gm/Dextrose 115 ml @ 28.75 mls/ hr Q8H IV 12/15/16 16:00 01/26/17 15:59 12/16/16 07:45 28.75 MLS/HR Hydralazine HCl (Apresoline Tab) 10 mg Q6H PRN PO 12/15/16 15:00 01/14/17 14:59 12/15/16 21:55 10 MG Piperacillin Sod/ Tazobactam Sod (Consult) 1 ea UD PRN N/A 12/15/16 15:30 01/14/17 15:29 Daptomycin (Consult) 1 ea UD PRN N/A 12/15/16 15:45 01/14/17 15:44 Insulin Glargine (Lantus Solostar Pen) 10 unit BID SC 12/16/16 09:00 01/15/17 08:59 12/16/16 07:49 10 UNIT Sodium Chloride 1,000 ml @ 125 mls/hr Q8H IV 12/15/16 16:30 01/14/17 16:29 12/16/16 04:30 125 MLS/HR Aspirin (Ecotrin Tab) 81 mg QAM PO 12/16/16 09:00 01/15/17 08:59 Gabapentin (Neurontin Cap) 300 mg TID PO 12/15/16 21:30 01/14/17 21:29 12/15/16 21:51 300 MG Amlodipine Besylate (Norvasc Tab) 5 mg QAM PO 12/16/16 09:00 01/15/17 08:59 Clonidine HCl (Catapres Tab) 0.1 mg Q4H PRN PO 12/15/16 20:45 01/14/17 20:44 Insulin Aspart (novoLOG ASPART) SLIDING SCALE If C... Q6 SC 12/16/16 06:00 01/15/17 05:59
[2016-12-16] MEDS ORDERED: ATORVASTATIN 40 MG TAB PO SCH (09:00)
[2016-12-16] MEDS ORDERED: LISINOPRIL 20 MG TAB PO SCH (09:00)
--- NOTE | 2016-12-16 09:20 | Progress Note ---
Progress Note Date of Service Dec 16, 2016. Progress Note ID Consult Dictated #[id number] A/P: 1. Left 3rd toe osteo -Continue abx for now, await culture results -For amp today, await OR findings -Will follow, thank you
--- NOTE | 2016-12-16 09:59 | Orthopedic Progress Note ---
Orthopedic Progress Note Date of Service Dec 16, 2016. Subjective Reports: feeling well, Denies: complaints, chest pain, SOB, nausea / vomiting, light headedness, calf pain Additional Notes: Patient states he is hungry this morning but he understands that is because of having surgery this morning for his left 3rd toe. Objective calves soft nontender, capillary refill less than 2 sec., A&O x3, toes mobile Left foot demonstrates necrotic tissue at the tip of the 3rd toe. He has good ROM of other toes. Previous surgery noted on other toes with partial amputation. Pulses were compared bilateral and were equal. Decreased sensation over the 3rd toe of his left foot. Good ROM and strength at the ankle joint Date Time Temp Pulse Resp B/P (MAP) Pulse Ox O2 Delivery O2 Flow Rate FiO2 12/16/16 07:40 Room Air 12/16/16 07:06 36.6 64 19 133/75 (94) 96 Room Air 12/16/16 03:26 70 139/75 (96) 12/15/16 23:45 Room Air 12/15/16 23:17 37.1 69 15 158/82 (107) 99 Room Air 12/15/16 22:32 163/88 (113) 12/15/16 18:38 165/84 (111) 12/15/16 17:45 63 20 183/105 (131) 99 Room Air 12/15/16 17:05 36.3 63 16 170/103 (125) 99 Room Air 12/15/16 16:00 99 Room Air 12/15/16 14:34 36.5 64 16 188/92 (124) 99 Room Air 12/15/16 14:01 67 16 179/93 98 12/15/16 13:48 100 Room Air 12/15/16 12:49 61 18 165/80 100 Room Air 12/15/16 10:50 36.6 84 16 149/84 98 Laboratory Results 24 Hours: Test 12/15/16 11:50 12/16/16 06:43 White Blood Count 6.66 K/uL Red Blood Count 3.87 M/uL Hemoglobin 11.7 g/dL 10.6 g/dL Hematocrit 33.7 % 31.3 % Mean Corpuscular Volume 87.1 fL Mean Corpuscular Hemoglobin 30.2 pg Mean Corpuscular Hemoglobin Concent 34.7 g/dl Platelet Count 280 K/uL Mean Platelet Volume 10.2 fL Neutrophils (%) (Auto) 73.1 % Lymphocytes (%) (Auto) 16.7 % Monocytes (%) (Auto) 8.0 % Eosinophils (%) (Auto) 0.9 % Basophils (%) (Auto) 0.2 % Neutrophils # (Auto) 4.88 K/uL Lymphocytes # (Auto) 1.11 K/uL Monocytes # (Auto) 0.53 K/uL Eosinophils # (Auto) 0.06 K/uL Basophils # (Auto) 0.01 K/uL Prothromb Time International Ratio 1.2 Prothrombin Time 12.5 SECONDS Assessment & Plan Assessment: Left 3rd toe osteomyelitis Plan: Patient is scheduled for surgery this morning for a left 3rd toe amputation. Inhouse Planning DVT Prophylaxis: Heparin Drip Discharge Planning Discharge Planning: uncertain
[2016-12-16] MEDS ORDERED: PROPOFOL IV EMULSION 10 MG/ML 20 ML VIAL IV ONE (10:30)
[2016-12-16] MEDS ORDERED: MIDAZOLAM HCL 1 MG/ML 2ML VIAL ONE ×2 (10:30→10:56)
[2016-12-16] MEDS ORDERED: FENTANYL CITRATE INJ 50 MCG/1 ML 2 ML VIAL ONE (10:31)
--- NOTE | 2016-12-16 10:31 | History & Physical Bridge Note ---
H&P Re-Evaluation Bridge Note: I have examined the patient, reviewed the History & Physical and in the interval since the performance of the History & Physical I have noted the following changes of clinical significance: No changes noted
[2016-12-16] MEDS ORDERED: BUPIVACAINE 0.5 % 5 MG/1 ML MPF 30ML VIAL ONE (10:53)
[2016-12-16] MEDS ORDERED: LIDOCAINE HCL 1% 20 ML VIAL ONE (10:53)
[2016-12-16] MEDS ORDERED: BACITRACIN 50000 UNIT VIAL ONE (10:53)
[2016-12-16] MEDS ORDERED: ONDANSETRON INJ 2 MG/ML 2 ML VIAL IV PRN (11:15)
[2016-12-16] MEDS ORDERED: FENTANYL CITRATE INJ 50 MCG/1 ML 2 ML VIAL IV PRN (11:15)
[2016-12-16] MEDS ORDERED: EpHEDrine SULFATE INJ 50 MG/ML AMP IV PRN (11:15)
[2016-12-16] MEDS ORDERED: PROMETHAZINE HCL INJ 6.25 MG in SODIUM CHLORIDE 0.9% 50ML 50 ML IV PRN (11:15)
[2016-12-16] MEDS ORDERED: ATROPINE SULFATE 0.1 MG/ML 5ML SYR IV PRN (11:15)
--- NOTE | 2016-12-16 11:43 | [facility] Post Operative Brief Note ---
Immediate Operative Summary Operative Date Dec 16, 2016. Pre-Operative Diagnosis left 3rd toe gangrene and oestomyelitis Post-Operative Diagnosis same Procedure(s) Performed let 3rd toe amputation Surgeon paniagua Fiber Worker Surgeon(s) BERT Mendenhall Estimated Blood Loss 5 cc Findings gross infetion and osteo at tip of toe. no infection at surgical site Specimens cultures Drains no Anesthesia local mac Complication(s) None Disposition Recovery Room / PACU
--- NOTE | 2016-12-16 12:26 | Anesthesiology Progress Note ---
Anesthesia Post Op Note Date & Time Dec 16, 2016 at 12:25 Vital Signs Pain Intensity: 0 Vital Signs Past 12 Hours Date Time Temp Pulse Resp B/P (MAP) Pulse Ox O2 Delivery O2 Flow Rate FiO2 12/16/16 12:20 64 16 151/83 100 Room Air 12/16/16 12:15 36.4 63 14 164/83 100 Room Air 12/16/16 12:05 66 14 147/83 100 Room Air 12/16/16 11:55 67 12 156/84 100 Room Air 12/16/16 11:47 35.4 71 12 155/77 100 Room Air 12/16/16 07:40 Room Air 12/16/16 07:06 36.6 64 19 133/75 (94) 96 Room Air 12/16/16 03:26 70 139/75 (96) Notes Mental Status: alert / awake / arousable, participated in evaluation Pt Amnestic to Procedure: Yes Nausea / Vomiting: adequately controlled Pain: adequately controlled Airway Patency, RR, SpO2: stable & adequate BP & HR: stable & adequate Hydration State: stable & adequate Anesthetic Complications: no major complications apparent
--- NOTE | 2016-12-16 12:56 | INFECT. DISEASE CONSULTATION ---
DATE OF CONSULTATION: 12/16/2016 REQUESTING PHYSICIAN: Dr. Stewart. HISTORY OF PRESENT ILLNESS: This is a 61-year-old gentleman who was admitted after he had a crush injury to his left 3rd toe. He has had multiple amputations for infection there in the past and prior to admission he was cleaning the wound and noted that there was exposed bone. He did have an x-ray which confirmed osteomyelitis of the third digit. He is planned to have amputation later today. A wound culture was obtained in the ER and the Gram stain has few gram positive cocci. Blood cultures are pending. He has not had fevers or leukocytosis. He denies any pain in the foot but has significant neuropathy. He was placed on daptomycin and Zosyn, and is tolerating these well. Infectious diseases was asked to see this patient for daptomycin approval. He does have elevated creatinine of 3.1. Currently, he is out of bed to chair. He has no fevers or chills. He has no cough, shortness of breath, chest pain, nausea, vomiting, diarrhea or abdominal pain. He denies any pain in the foot. All remaining review of systems were reviewed and are unremarkable. PAST MEDICAL HISTORY: Significant for diabetes with associated neuropathy, history of osteomyelitis, peripheral vascular disease. PAST SURGICAL HISTORY: Significant for eye surgery, multiple amputations of the toe and foot debridements. FAMILY HISTORY: Noncontributory. SOCIAL HISTORY: Negative for tobacco use. He drinks rarely. He denies any drug use. ALLERGIES: LEVAQUIN AND IODINE. CURRENT MEDICATIONS: Include daptomycin, insulin, aspirin, Norvasc, NovoLog, Neurontin, clonidine, Zosyn, MiraLax, Tylenol, hydralazine, Zofran, milk of magnesia. PHYSICAL EXAMINATION: VITAL SIGNS: He is afebrile, pulse 64, respiratory rate is 19, blood pressure is 133/75, oxygen saturation is 96%-99% on room air. GENERAL: He is awake, alert and oriented x3. He is in no acute distress. HEENT: Mucous membranes are moist. Extraocular muscles are intact. HEART: Regular. LUNGS: Clear. ABDOMEN: Soft. EXTREMITIES: There is no lower extremity edema. Examination of the toe reveals a wound over the distal aspect of the digit with no purulent drainage or bleeding. There is no surrounding erythema, warmth, or edema. LABORATORY STUDIES: CBC reveals a white blood cell count of 6.7, hemoglobin 10.6, platelets are 266. Chemistry panel reveals a sodium of 143, potassium chloride 113, bicarbonate 21, BUN 48, creatinine 3.1, glucose is 173. Wound culture has GPCs. Chest x-ray is negative. Toe x-ray confirms osteomyelitis. ASSESSMENT AND PLAN: 1. Osteomyelitis of the left third digit for amputation today. He can remain on empiric antibiotics pending the results of his wound culture; however, surgery may be carried. I will await the OR findings and make further recommendations based on OR findings and culture results. Thank you for this consultation. LARS
[2016-12-16] MEDS: GABAPENTIN 300 MG CAP PO SCH ×2 (13:27→21:06)
[2016-12-16] MEDS: ASPIRIN 81 MG ECTAB PO SCH (13:27)
[2016-12-16] MEDS: AMLODIPINE BESYLATE 5 MG TAB PO SCH (13:28)
--- NOTE | 2016-12-16 15:44 | OPERATIVE REPORT ---
DATE OF OPERATION: 12/16/2016 PREOPERATIVE DIAGNOSIS: Left 3rd toe gangrene with osteomyelitis. POSTOPERATIVE DIAGNOSIS: Same. PROCEDURE: Left 3rd toe amputation. SURGEON: Garrett Chaidez MD MAIL DISTRIBUTION CLERK: Prabhjot Mendenhall PA-C who was necessary for prepping, draping, retraction, exposure and closure. ANESTHESIA: Digital block with sedation. INDICATIONS: This is a 61-year-old gentleman with progressive pain and an open wound over the left 3rd toe. He presents with exposed bone and concern for osteomyelitis. He has a history of diabetic neuropathy. The risks and benefits have been discussed including, but not limited to, risk of infection, nerve injury, stiffness, loss of motion, failure to improve, etc.? The patient is agreeable and wishes to proceed. DESCRIPTION OF PROCEDURE: I made an elliptical fish mouth incision directly over the 3rd toe. Dissection was carried down through the skin and subcutaneous tissue then transected the flexor and extensor tendons and allowed them to retract proximally. I disarticulated the toe at the metatarsophalangeal level and the toe was passed off the table. Cultures were taken from the tip of the toe as there was gross infection and pus in that area. There is no evidence of infection in the region of the proximal portion of the amputation site. The tourniquet was let down and there was adequate bleeding in the area. Incision was then irrigated with 1 liter of saline and loose closure was performed with 3-0 nylon in a mattress fashion. The patient was placed in a soft dressing and sent to the PACU in stable condition. Postoperative plan will be weightbearing as tolerated. I attest to the content of the Intraoperative Record and any orders documented therein. Any exception s are noted below.
--- NOTE | 2016-12-16 17:02 | Nephrology Consultation ---
Nephrology Consultation Date of Consultation: Dec 16, 2016. Attending Physician: Dr Stewart Requesting Physician: Dr Stewart Reason for Consultation: KEN on CKD3 History of Present Illness 61 year old male admitted yesterday w/ non healing wound L 3rd toe and noted on presentation to have creatinine 3.3, improved to 3.1 this am. PMH includes DM 1 w/ retinopathy and neuropathy, PVD s/p multiple toe infections, CKD 3 w/ baseline creatine 1.4-1.6 over the past year, most recently 09/2016, hyperlipidemia, admission here 01/2016 for diplopia evaluated in and out of hospital by neurology and no clear cause found but suspicion related to DM. Does not follow w/ nephrology as outpt. On lisinopril 20 mg daily. No outpt nsaid use. He injured his toe on 12/12 after dropping a mower on it; when he went to clean up the wound the tissue came off down to the bone. No f/c or constitutional sx. He does endorse working outside for the past several days and not keeping himself optimally hydrated. He also did note decreased UOP prior to admission but no other voiding sx. Admission imaging was c/w osteomyelitis: he was started on zosyn and daptomycin and this am underwent uneventful amputation of that toe. 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) Allergies Coded Allergies: Levofloxacin (Verified Allergy, Unknown, "nervous", 12/15/16) Shrimp (Verified Adverse Reaction, Unknown, NAUSEA, 12/15/16) Medications Current Inpatient Medications Medications (Trade) Dose Ordered Sig/Pati Route Start Time Stop Time Status Last Admin Dose Admin Acetaminophen (Tylenol Tab) 650 mg Q4H PRN PO 12/15/16 14:30 01/14/17 14:29 Al Hydrox/Mg Hydrox/Simethicone (Maalox Max Susp) 15 ml Q4H PRN PO 12/15/16 14:30 01/14/17 14:29 Magnesium Hydroxide (Milk Of Magnesia Susp) 30 ml Q6H PRN PO 12/15/16 14:30 01/14/17 14:29 Polyethylene (Miralax Powder Packet) 17 gm DAILY PRN PO 12/15/16 15:15 01/14/17 15:14 Ondansetron HCl (Zofran Inj) 4 mg Q6H PRN IV 12/15/16 14:30 01/14/17 14:29 Heparin Sodium (Porcine) (Heparin Sq 5000 Unit/0.5ml) 5,000 unit Q12 SQ 12/15/16 15:30 01/14/17 15:29 Future Hold 12/15/16 21:17 5,000 UNIT Glucose (Glucose 40% Gel) 15-30 GRAMS 15 GRAMS... UD PRN PO 12/15/16 14:30 01/14/17 14:29 Glucose (Glucose Chew Tab) 4-8 Tablets 4 Tabl... UD PRN PO 12/15/16 14:30 01/14/17 14:29 Dextrose (Dextrose 50% 50ML Syringe) 25-50ML OF 50% DW IV FOR... UD PRN IV 12/15/16 14:30 01/14/17 14:29 Glucagon (Glucagon Inj) 1 mg UD PRN SQ 12/15/16 14:30 01/14/17 14:29 Miscellaneous Information (Consult Glycemic Management Pharmacy) 1 ea UD PRN N/A 12/15/16 15:22 01/14/17 15:21 Daptomycin 480 mg/ Sodium Chloride 59.6 ml @ 100 mls/hr Q48H IV 12/17/16 12:00 01/28/17 11:59 Piperacillin Sod/ Tazobactam Sod 3.375 gm/Dextrose 115 ml @ 28.75 mls/ hr Q8H IV 12/15/16 16:00 01/26/17 15:59 12/16/16 16:22 28.75 MLS/HR Hydralazine HCl (Apresoline Tab) 10 mg Q6H PRN PO 12/15/16 15:00 01/14/17 14:59 12/15/16 21:55 10 MG Piperacillin Sod/ Tazobactam Sod (Consult) 1 ea UD PRN N/A 12/15/16 15:30 01/14/17 15:29 Daptomycin (Consult) 1 ea UD PRN N/A 12/15/16 15:45 01/14/17 15:44 Insulin Glargine (Lantus Solostar Pen) 10 unit BID SC 12/16/16 09:00 01/15/17 08:59 12/16/16 07:49 10 UNIT Sodium Chloride 1,000 ml @ 125 mls/hr Q8H IV 12/15/16 16:30 01/14/17 16:29 12/16/16 12:50 125 MLS/HR Aspirin (Ecotrin Tab) 81 mg QAM PO 12/16/16 09:00 01/15/17 08:59 12/16/16 13:27 81 MG Gabapentin (Neurontin Cap) 300 mg TID PO 12/15/16 21:30 01/14/17 21:29 12/16/16 13:27 300 MG Amlodipine Besylate (Norvasc Tab) 5 mg QAM PO 12/16/16 09:00 01/15/17 08:59 12/16/16 13:28 5 MG Clonidine HCl (Catapres Tab) 0.1 mg Q4H PRN PO 12/15/16 20:45 01/14/17 20:44 12/16/16 14:42 0.1 MG Insulin Aspart (novoLOG ASPART) SLIDING SCALE If C... Q6 SC 12/16/16 06:00 01/15/17 05:59 12/16/16 13:31 7 UNITS Home Meds and Scripts Medications Dose Route/Sig Max Daily Dose Days Date Category Dose Instructions Atorvastatin Calcium (Atorvastatin) 40 Mg Tab 40 Mg PO QAM 12/15/16 Reported Novolog (Insulin Aspart) 100 Units/Ml Inj 1 Dose SQ UD 12/15/16 Reported per sliding scale Lantus Solostar (Insulin Glargine) 100 Unit/Ml Inj 40 Units SC QAM 12/15/16 Reported Aspirin EC Low Dose (Aspirin) 81 Mg Ectab 81 Mg PO QAM 30 02/09/16 Rx Neurontin (Gabapentin) 100 Mg Cap 300 Mg PO TID 07/09/12 Reported Zestril (Lisinopril) 20 Mg Tab 20 Mg PO QAM 06/11/11 Reported Review of Systems Constitutional: No fever, No weight loss, No fatigue Eyes: No worsening of vision ENT: No hearing loss Respiratory: No cough, No shortness of breath Cardiac: No chest pain, No edema, No palpitations Abdomen: + problem reported (ate lunch w/o issue and passing gas), No pain, No nausea, No vomiting, No diarrhea, No constipation Musculoskeletal: No joint pain, No muscle pain Male : + see HPI, No dysuria, No urinary frequency, No hematuria Neuro: + numbness/tingling (stable chronic neuropathy), No memory loss, No weakness, No balance problems Psych: No depression symptoms, No anxiety Heme: No abnormal bleeding/bruising Endo: No fatigue Skin: No rash, No itch, No new/changing skin lesions Physical Exam Date Time Temp Pulse Resp B/P (MAP) Pulse Ox O2 Delivery O2 Flow Rate FiO2 12/16/16 15:45 36.3 71 16 180/97 (124) 100 Room Air 12/16/16 14:37 36.4 71 14 167/98 (121) 99 Room Air 12/16/16 13:39 36.5 66 16 186/76 (112) 99 Room Air 12/16/16 13:09 36.4 64 16 165/95 (118) 98 Room Air 12/16/16 13:07 99 Room Air 12/16/16 13:06 36.3 61 16 166/82 (110) Room Air 12/16/16 13:04 Room Air 12/16/16 12:20 64 16 151/83 100 Room Air 12/16/16 12:15 36.4 63 14 164/83 100 Room Air 12/16/16 12:05 66 14 147/83 100 Room Air 12/16/16 11:55 67 12 156/84 100 Room Air 12/16/16 11:47 35.4 71 12 155/77 100 Room Air 12/16/16 07:40 Room Air 12/16/16 07:06 36.6 64 19 133/75 (94) 96 Room Air 12/16/16 03:26 70 139/75 (96) 12/15/16 23:45 Room Air 12/15/16 23:17 37.1 69 15 158/82 (107) 99 Room Air 12/15/16 22:32 163/88 (113) 12/15/16 18:38 165/84 (111) 12/15/16 17:45 63 20 183/105 (131) 99 Room Air 12/15/16 17:05 36.3 63 16 170/103 (125) 99 Room Air 24-Hour Column 12/17/16 08:00 Intake Total 1278 ml Output Total 5 ml Balance 1273 ml General Appearance: WD/WN, no apparent distress Eyes: EOMI ENT: hearing grossly normal Neck: supple Respiratory/Chest: no respiratory distress, + crackles (fine end insp BL bases) Cardiovascular: regular rate, rhythm, no edema Abdomen: normal bowel sounds, non tender, soft (no watkins) Extremities: no pedal edema, + pertinent finding (L foot dressed/ in ice pack) Neurologic/Psych: alert, normal mood/affect, oriented x 3 Skin: no jaundice, warm/dry, no rash Diagnostics Last 24 Hours Test 12/15/16 16:50 12/15/16 17:03 12/15/16 20:36 12/15/16 23:52 Sodium Level 145 mmol/L Potassium Level 4.9 mmol/L Chloride Level 114 mmol/L Carbon Dioxide Level 23 mmol/L Anion Gap 8.0 mmol/L Blood Urea Nitrogen 54 mg/dl Creatinine 3.10 mg/dl Est Creatinine Clear Calc Drug Dose 26.5 ml/min Estimated GFR () 24.2 Estimated GFR (Non- 20.9 BUN/Creatinine Ratio 17.3 Random Glucose 116 mg/dl Calcium Level 8.5 mg/dl Bedside Glucose 113 mg/dl 248 mg/dl 205 mg/dl Test 12/16/16 05:49 12/16/16 06:43 12/16/16 11:54 12/16/16 12:53 Bedside Glucose 168 mg/dl 190 mg/dl 188 mg/dl White Blood Count 6.76 K/uL Red Blood Count 3.60 M/uL Hemoglobin 10.6 g/dL Hematocrit 31.3 % Mean Corpuscular Volume 86.9 fL Mean Corpuscular Hemoglobin 29.4 pg Mean Corpuscular Hemoglobin Concent 33.9 g/dl RDW Standard Deviation 39.6 fL RDW Coefficient of Variation 12.3 % Platelet Count 266 K/uL Mean Platelet Volume 10.1 fL Sodium Level 143 mmol/L Potassium Level 5.4 mmol/L Chloride Level 113 mmol/L Carbon Dioxide Level 21 mmol/L Anion Gap 9.0 mmol/L Blood Urea Nitrogen 48 mg/dl Creatinine 3.10 mg/dl Est Creatinine Clear Calc Drug Dose 26.5 ml/min Estimated GFR () 24.2 Estimated GFR (Non- 20.9 BUN/Creatinine Ratio 15.5 Random Glucose 173 mg/dl Calcium Level 8.1 mg/dl C-Reactive Protein 1.23 mg/dl Diagnostic Radiology: cxr no acute or chronic process XR L toe > osteomyelitis Assessment & Plan 61 y/o M w/ CKD 3 baseline creatinine 1.4-1.6 as recently as 09/2016, DM 1 w/ retinopathy, pvd a/w L 3rd toe osteomyelitis s/p amputation 12/16 and w/ creatinine 3.3 on presentation 12/15, improved to 3.3 today. KEN on CKD 3 w/ mild hyperkalemia in the setting of lisinopril use, likeliest ATN in setting of infection not oliguric, improving creatinine somewhat but not much given aggressive hydration -recheck bmp w/ ck and phos and uacm w/ prn cx to eval for GN or ATN or other processes now -based on repeat labs may adjust IVF type; he appears to be tolerating current rate -cont to hold ACEI -ordered low K / renal diet; do not expect this to belong term need -cont daily bmp -no acute indication for dialysis -diuretics prn only; cont nsaid avoidance -f/u pending cultures Appreciate consult; will follow with you.
[2016-12-16 17:49] LABS: CALCIUM 8.2 mg/dl (8.5-10.1); CREATININE 3.4 mg/dl (0.60-1.40); POTASSIUM 5.3 mmol/L (3.5-5.1)
[2016-12-16 17:53] LABS: PHOSPHORUS 3.5 mg/dl (2.5-4.9)
[2016-12-16] MEDS: HydrALAZINE 10 MG TAB PO PRN (18:33)
[2016-12-16] MEDS: [UNRECOGNIZED DRUG - OTHER] IV SCH (19:54)
[2016-12-16] MEDS: SODIUM BICARBONATE IV SCH (19:54)
[2016-12-16] MEDS: SOD CHLOR IV SCH (19:54)
[2016-12-16] MEDS: METOPROLOL TARTRATE 25 MG TAB PO SCH (21:05)
[2016-12-17 01:28] LABS: URINE APPEARANCE CLEAR (CLEAR); URINE BILIRUBIN NEG (NEG); URINE COLOR YELLOW; URINE EPITHELIAL CELL AUTO 0-5 /lpf (0-5); URINE NITRITE NEG (NEG); URINE SPECIFIC GRAVITY 1.016 (1.000-1.030); UROBILINOGEN NEG (NEG); ZZUR CULT IF INDIC CLEAN CATCH NO
[2016-12-17 01:33] LABS: MANUAL MICROSCOPIC REQUIRED? NO; REVIEW REQ? YES
[2016-12-17 04:41] VITALS: BP 128/74; PULSE 58; TEMP 36.8; O2SAT 97
[2016-12-17 06:33] LABS: BUN/CREATININE RATIO 13.7 (10-20); CREATININE 3.4 mg/dl (0.60-1.40); POTASSIUM 4.7 mmol/L (3.5-5.1)
[2016-12-17 07:38] VITALS: BP 122/79; PULSE 60; TEMP 36.5; O2SAT 97
[2016-12-17 08:13] LABS: ESTIMATED AVERAGE GLUCOSE 235 mg/dl; HA1C FLAG Normal (Normal)
[2016-12-17] MEDS: PIPERACILL/TAZOBAC IV 3.375 GM in DEXTROSE 5% 100ML 100 ML IV SCH (08:36)
[2016-12-17] MEDS: AMLODIPINE BESYLATE 5 MG TAB PO SCH (08:36)
[2016-12-17] MEDS: GABAPENTIN 300 MG CAP PO SCH ×3 (08:36→21:07)
[2016-12-17] MEDS: ASPIRIN 81 MG ECTAB PO SCH (08:37)
[2016-12-17] MEDS: METOPROLOL TARTRATE 25 MG TAB PO SCH ×2 (08:37→21:07)
[2016-12-17] MEDS: INSULIN ASPART 100 UNITS/ML 3 ML PEN SC SCH ×4 (08:40→21:12)
--- NOTE | 2016-12-17 10:02 | Pharmacy Progress Note ---
Glycemic Control: Progress Nt Date of Service Dec 17, 2016. Scope Glycemic Pharmacist consulted by SAAD Jo on 12/15/16 for glycemic control and to write orders per [facility] inpatient glycemic control protocol. Objective Accuchecks BSG (last 24hrs): Test 12/16/16 11:54 12/16/16 12:53 12/16/16 17:07 12/16/16 17:25 Bedside Glucose 190 mg/dl (70-99) 188 mg/dl (70-99) 213 mg/dl (70-99) Random Glucose 210 mg/dl (70-99) Test 12/16/16 20:47 12/17/16 05:45 12/17/16 06:48 12/17/16 07:07 Bedside Glucose 223 mg/dl (70-99) 53 mg/dl (70-99) 63 mg/dl (70-99) Random Glucose 54 mg/dl (70-99) Test 12/17/16 07:27 Bedside Glucose 101 mg/dl (70-99) Laboratory Data (last 24hrs) Test 12/16/16 17:25 12/17/16 05:45 Anion Gap 6.0 mmol/L 7.0 mmol/L BUN/Creatinine Ratio 13.0 13.7 Blood Urea Nitrogen 44 mg/dl 46 mg/dl Creatinine 3.40 mg/dl 3.40 mg/dl Potassium Level 5.3 mmol/L 4.7 mmol/L Sodium Level 144 mmol/L 144 mmol/L HbA1c: Test 12/16/16 06:43 Hemoglobin A1c 9.8 % (4.5-5.6) H Recent Pertinent Medications Outpatient Anti-diabetic Regimen: * Lantus 40 units qAM, Novolog per SS The patient is currently receiving: * Basal insulin: Lantus 10 units every 12 hours * Correctional Insulin: Novolog Correction per scale ACHS Goal Range: Low 110 mg/dL - High 150 mg/dL Correction Factor: 25 mg/dL/unit * Prandial insulin: Per carb ratio of 1 unit per 8 grams CHO consumed Risk Factors for Insulin Resistance: * Infection: on daptomycin and Zosyn for toe wound w/ osteo * Recent Surgery: POD 1 s/p L 3rd toe amputation * Diet: type 1 diabetes/ AHA Risk Factors for Insulin SENSITIVITY: * KEN on CKD (SCr at 3.4) Assessment & Plan ASSESSMENT: 12/15/16 * 61 yo male admitted for open L toe wound (bone exposed) secondary to injury. Pt has a h/o of multiple L toe amputations in the past. * Pt with h/o type 1 diabetes. He has been followed by the pharmacy glycemic service during past admissions. * BSG on admission today was 184 mg/dl. Pt reports taking Lantus 40 units this morning SLITTER PROCESSED FILM. No additional Lantus needed today. * During past admission the pt required about 50% of Lantus outpatient dose. Will use past admission data to guide dosing of Lantus and Novolog at least initially 12/17/16 * Patient is currently receiving an average of 44 units of insulin per day * 20 units of basal insulin * 24 units of prandial/correctional insulin * BSGs ranging 54-223 over the past 24hrs * Lantus reduced based on data from previous admissions, and now with fasting hypoglycemia this AM * Suspect this is most likely from the reduced elimination 2/2 KEN * Will need to reduce basal further * No change to prandial insulin since BSGs elevated after meals yesterday PLAN FOR INPATIENT GLYCEMIC CONTROL: * Decrease Lantus to 7 units SQ BID - hold this AM's dose, start tonight * Continue correction factor of 25 mg/dl/unit * Continue carb ratio of 1 unit per 8 grams CHO consumed * Continue goal range of Low 110 mg/dL - High 150 mg/dL * Continue to follow closely with the KEN RECOMMENDATIONS FOR DISCHARGE: * A1c drawn this admission is worse than one from a year ago - will need to work with industrial technology education teacher to determine a plan for discharge * Please note that the plan above was derived based on current level of insulin resistance and hospital stress. These recommendations are appropriate for inpatient admission only. Plan of care upon discharge will need to be reassessed to avoid potential outpatient hypo/hyperglycemia. Thank you.
--- NOTE | 2016-12-17 10:03 | Clinical Documentation Query ---
CLINICAL DOCUMENTATION QUERY Dr. ZIEGLER, In ICD 10,There is an assumed relationship between your patient's diabetes and osteomyelitis - however, a clarification is required if there are other potential causes of osteomyelitis, such as an open fracture. In your clinical opinion is this patient being managed for: ( x ) Osteomyelitis L 3rd toe due to crush injury ( ) Other explanation of clinical findings (Please Explain) ( ) Unable to determine (Please Define) ( ) Need to Discuss ( ) Not Agree The medical record reflects the following clinical findings, treatment, and risk factors. Clinical Indicators: 61 yo male presenting after a L 3rd toe injury 2 days prior to ER presentation. Toe xray confirmed Osteomyelitis middle phalanx left third toe. Per documentation, there was exposed bone. Treatment: IV daptomycin, IV zosyn, IV fluids, ID consult, blood and wound cultures, orthopedic consult for L toe amputation Risk Factors: crush injury causing exposed bone, DM, Diabetic neuropathy Please clarify and document your clinical opinion in the progress notes and discharge summary. Terms such as "probable", "suspected", "likely", "questionable", "possible", or "still to be ruled out" are acceptable. IF IN AGREEMENT, YOU MUST DOCUMENT ABOVE DIAGNOSTIC STATEMENT IN DAILY PROGRESS NOTES AND DISCHARGE SUMMARY. This document is not part of the patient's record. Thank You, Sarah Corey RN [phone]
[2016-12-17] MEDS: SOD CHLOR IV SCH (10:21)
[2016-12-17] MEDS: SODIUM BICARBONATE IV SCH (10:21)
[2016-12-17] MEDS: [UNRECOGNIZED DRUG - OTHER] IV SCH (10:21)
--- NOTE | 2016-12-17 11:17 | Progress Note ---
Subjective Date of Service: Dec 17, 2016. Subjective Pt evaluation today including: conversation w/ patient, conversation w/ family , physical exam, chart review, lab review pt seen in followup, s/p amp 3rd digit. No fevers, no pain, no drainage. feeling well. no complaints. asking to go home. culture with alpha strep, no sensitivities done. blood cultures negative. all remaining ros reviewed and are negative. Problem List Medical Problems: (1) Acute renal failure Status: Acute (2) Cranial nerve palsy Status: Acute (3) Toe infection Status: Acute Objective Vital Signs Date Time Temp Pulse Resp B/P (MAP) Pulse Ox O2 Delivery O2 Flow Rate FiO2 12/17/16 07:38 36.5 60 16 122/79 (93) 97 Room Air 12/17/16 07:30 Room Air 12/17/16 04:41 36.8 58 20 128/74 (92) 97 Room Air 12/16/16 23:45 Room Air 12/16/16 22:55 36.6 55 20 132/76 (94) 99 Room Air 12/16/16 19:40 36.5 69 16 135/66 (89) 99 Room Air 12/16/16 16:00 100 Room Air 12/16/16 15:45 36.3 71 16 180/97 (124) 100 Room Air 12/16/16 14:37 36.4 71 14 167/98 (121) 99 Room Air 12/16/16 13:39 36.5 66 16 186/76 (112) 99 Room Air 12/16/16 13:09 36.4 64 16 165/95 (118) 98 Room Air 12/16/16 13:07 99 Room Air 12/16/16 13:06 36.3 61 16 166/82 (110) Room Air 12/16/16 13:04 Room Air 12/16/16 12:20 64 16 151/83 100 Room Air 12/16/16 12:15 36.4 63 14 164/83 100 Room Air 12/16/16 12:05 66 14 147/83 100 Room Air 12/16/16 11:55 67 12 156/84 100 Room Air 12/16/16 11:47 35.4 71 12 155/77 100 Room Air Physical Exam General Appearance: WD/WN, no apparent distress Eyes: normal inspection, EOMI Neck: supple Respiratory/Chest: lungs clear, normal breath sounds, no respiratory distress Cardiovascular: regular rate, rhythm, no edema Abdomen: non tender, soft Extremities: non-tender, no pedal edema Neurologic/Psychiatric: alert, oriented x 3 Comments: left foot dressing c/d/i Laboratory Results Item Value Date Time Blood Culture - Preliminary Resulted 12/15/16 1150 Blood NO GROWTH TO DATE. Gram Stain - Final Resulted 12/15/16 1150 Incision Site Toe Left 3 Blood Culture - Preliminary Resulted 12/15/16 1200 Blood NO GROWTH TO DATE. Gram Stain - Final Resulted 12/16/16 1119 Drainage-Deep Toe Left 3 Gram Stain - Final Resulted 12/15/16 1150 Incision Site Toe Left 3 Last 24 Hours Test 12/16/16 11:54 12/16/16 12:53 12/16/16 17:07 12/16/16 17:25 Bedside Glucose 190 mg/dl 188 mg/dl 213 mg/dl Sodium Level 144 mmol/L Potassium Level 5.3 mmol/L Chloride Level 113 mmol/L Carbon Dioxide Level 25 mmol/L Anion Gap 6.0 mmol/L Blood Urea Nitrogen 44 mg/dl Creatinine 3.40 mg/dl Est Creatinine Clear Calc Drug Dose 24.2 ml/min Estimated GFR () 21.6 Estimated GFR (Non- 18.7 BUN/Creatinine Ratio 13.0 Random Glucose 210 mg/dl Calcium Level 8.2 mg/dl Phosphorus Level 3.5 mg/dl Total Creatine Kinase 58 U/L Test 12/16/16 20:47 12/17/16 01:00 12/17/16 05:45 12/17/16 06:48 Bedside Glucose 223 mg/dl 53 mg/dl Urine Color YELLOW Urine Appearance CLEAR Urine pH 5.0 Urine Specific [place] 1.016 Urine Protein NEG Urine Glucose (UA) 1+ Urine Ketones NEG Urine Occult Blood NEG Urine Nitrite NEG Urine Bilirubin NEG Urine Urobilinogen NEG Urine Leukocyte Esterase NEG Urine WBC (Auto) 1-5 /hpf Urine RBC (Auto) 0-4 /hpf Urine Hyaline Casts (Auto) 0 /lpf Urine Epithelial Cells (Auto) 0-5 /lpf Urine Bacteria (Auto) NEG Urine Sperm (Auto) PRESENT Sodium Level 144 mmol/L Potassium Level 4.7 mmol/L Chloride Level 112 mmol/L Carbon Dioxide Level 25 mmol/L Anion Gap 7.0 mmol/L Blood Urea Nitrogen 46 mg/dl Creatinine 3.40 mg/dl Est Creatinine Clear Calc Drug Dose 24.2 ml/min Estimated GFR () 21.6 Estimated GFR (Non- 18.7 BUN/Creatinine Ratio 13.7 Random Glucose 54 mg/dl Calcium Level 8.0 mg/dl Test 12/17/16 07:07 12/17/16 07:27 Bedside Glucose 63 mg/dl 101 mg/dl Assessment and Plan (1) Osteomyelitis of left foot Assessment & Plan: culture with alpha strep. s/p amp, likely curative but OR culture + will change to po augmentin bid x 14 days. will need continue wound care. ok for d/c from ID standpoint when stable.
--- NOTE | 2016-12-17 11:17 | Orthopedic Progress Note ---
Orthopedic Progress Note Date of Service Dec 17, 2016. Subjective Post OP Day: 1 Reports: feeling well, pain controlled w PO medications, Denies: complaints Objective splint C/D/I, dressing C/D/I Date Time Temp Pulse Resp B/P (MAP) Pulse Ox O2 Delivery O2 Flow Rate FiO2 12/17/16 07:38 36.5 60 16 122/79 (93) 97 Room Air 12/17/16 07:30 Room Air 12/17/16 04:41 36.8 58 20 128/74 (92) 97 Room Air 12/16/16 23:45 Room Air 12/16/16 22:55 36.6 55 20 132/76 (94) 99 Room Air 12/16/16 19:40 36.5 69 16 135/66 (89) 99 Room Air 12/16/16 16:00 100 Room Air 12/16/16 15:45 36.3 71 16 180/97 (124) 100 Room Air 12/16/16 14:37 36.4 71 14 167/98 (121) 99 Room Air 12/16/16 13:39 36.5 66 16 186/76 (112) 99 Room Air 12/16/16 13:09 36.4 64 16 165/95 (118) 98 Room Air 12/16/16 13:07 99 Room Air 12/16/16 13:06 36.3 61 16 166/82 (110) Room Air 12/16/16 13:04 Room Air 12/16/16 12:20 64 16 151/83 100 Room Air 12/16/16 12:15 36.4 63 14 164/83 100 Room Air 12/16/16 12:05 66 14 147/83 100 Room Air 12/16/16 11:55 67 12 156/84 100 Room Air 12/16/16 11:47 35.4 71 12 155/77 100 Room Air Assessment & Plan Assessment: Left 3rd toe osteomyelitis pod 1 sp amputation Plan: Dressing change in am if ok should b cleared for dc from ortho Inhouse Planning DVT Prophylaxis: Heparin Drip Discharge Planning Discharge Planning: uncertain
[2016-12-17] MEDS ORDERED: DAPTOmycin IV 480 MG in SODIUM CHLORIDE 0.9% 50ML 50 ML IV SCH (12:00)
[2016-12-17] MEDS: AMOXICILLIN/CLAVULANATE TAB 500 MG TAB PO SCH ×2 (12:57→18:11)
[2016-12-17 15:20] VITALS: BP 166/95; PULSE 54; TEMP 36.5; O2SAT 99
--- NOTE | 2016-12-17 17:44 | Nephrology Progress Note ---
Nephrology Progress Note Date of Service: Dec 17, 2016. Subjective pt very frustrated at still being in hospital, feels nothing is wrong kidney french except that he is "lying around" too much. denies pain, n, dyspnea. denies voiding sx except urgency. states medicines we are giving him are making his condition worse. states he never had a kidney problem before coming to hospital. states he does not need renal ultrasound or other intevention but just to get home Objective Date Time Temp Pulse Resp B/P (MAP) Pulse Ox O2 Delivery O2 Flow Rate FiO2 12/17/16 15:20 36.5 54 16 166/95 (118) 99 Room Air 12/17/16 11:45 Room Air 12/17/16 07:38 36.5 60 16 122/79 (93) 97 Room Air 12/17/16 07:30 Room Air 12/17/16 04:41 36.8 58 20 128/74 (92) 97 Room Air 12/16/16 23:45 Room Air 12/16/16 22:55 36.6 55 20 132/76 (94) 99 Room Air 12/16/16 19:40 36.5 69 16 135/66 (89) 99 Room Air Physical Exam: General Appearance: WD/WN, no apparent distress, on RA Eyes: EOMI ENT: hearing grossly normal Neck: supple Respiratory/Chest: no respiratory distress, diminished air entry but clear Cardiovascular: regular rate, rhythm, no edema Abdomen: normal bowel sounds, non tender, soft (no watkins) Extremities: no pedal edema, + pertinent finding (L foot gauze over surgical site; no swelling/erythema/drainage<< saw pt at dressing change); also w/ wound on his L heel Neurologic/Psych: alert, normal mood/affect, oriented x 3 Skin: no jaundice, warm/dry, no rash Current Inpatient Medications Medications (Trade) Dose Ordered Sig/Pati Route Start Time Stop Time Status Last Admin Dose Admin Acetaminophen (Tylenol Tab) 650 mg Q4H PRN PO 12/15/16 14:30 01/14/17 14:29 Al Hydrox/Mg Hydrox/Simethicone (Maalox Max Susp) 15 ml Q4H PRN PO 12/15/16 14:30 01/14/17 14:29 Magnesium Hydroxide (Milk Of Magnesia Susp) 30 ml Q6H PRN PO 12/15/16 14:30 01/14/17 14:29 Polyethylene (Miralax Powder Packet) 17 gm DAILY PRN PO 12/15/16 15:15 01/14/17 15:14 Ondansetron HCl (Zofran Inj) 4 mg Q6H PRN IV 12/15/16 14:30 01/14/17 14:29 Heparin Sodium (Porcine) (Heparin Sq 5000 Unit/0.5ml) 5,000 unit Q12 SQ 12/15/16 15:30 01/14/17 15:29 Future Hold 12/15/16 21:17 5,000 UNIT Glucose (Glucose 40% Gel) 15-30 GRAMS 15 GRAMS... UD PRN PO 12/15/16 14:30 01/14/17 14:29 Glucose (Glucose Chew Tab) 4-8 Tablets 4 Tabl... UD PRN PO 12/15/16 14:30 01/14/17 14:29 Dextrose (Dextrose 50% 50ML Syringe) 25-50ML OF 50% DW IV FOR... UD PRN IV 12/15/16 14:30 01/14/17 14:29 Glucagon (Glucagon Inj) 1 mg UD PRN SQ 12/15/16 14:30 01/14/17 14:29 Miscellaneous Information (Consult Glycemic Management Pharmacy) 1 ea UD PRN N/A 12/15/16 15:22 01/14/17 15:21 Hydralazine HCl (Apresoline Tab) 10 mg Q6H PRN PO 12/15/16 15:00 01/14/17 14:59 12/16/16 18:33 10 MG Aspirin (Ecotrin Tab) 81 mg QAM PO 12/16/16 09:00 01/15/17 08:59 12/17/16 08:37 81 MG Gabapentin (Neurontin Cap) 300 mg TID PO 12/15/16 21:30 01/14/17 21:29 12/17/16 13:59 300 MG Amlodipine Besylate (Norvasc Tab) 5 mg QAM PO 12/16/16 09:00 01/15/17 08:59 12/17/16 08:36 5 MG Clonidine HCl (Catapres Tab) 0.1 mg Q4H PRN PO 12/15/16 20:45 01/14/17 20:44 12/16/16 14:42 0.1 MG Metoprolol Tartrate (Lopressor Tab) 12.5 mg BID PO 12/16/16 21:00 01/15/17 20:59 12/17/16 08:37 12.5 MG Sodium Chloride 38.5 meq/Sodium Bicarbonate 75 meq/Sterile Water 1,075 ml @ 75 mls/hr [id number] IV 12/16/16 19:30 01/15/17 19:29 12/17/16 10:21 75 MLS/HR Insulin Aspart (novoLOG ASPART) SLIDING SCALE If C... ACHS SC 12/17/16 08:00 01/16/17 07:59 12/17/16 12:57 6 UNITS Amoxicillin/ Clavulanate Potassium (Augmentin Tab) 500 mg BIDM PO 12/17/16 11:30 12/31/16 11:29 12/17/16 12:57 500 MG Insulin Glargine (Lantus Solostar Pen) 7 unit BID SC 12/18/16 09:00 01/17/17 08:59 Insulin Glargine (Lantus Solostar Pen) 7 unit QDD ONCE SC 12/17/16 17:45 12/17/16 17:46 Last 24 Hours Test 12/16/16 17:25 12/16/16 20:47 12/17/16 01:00 12/17/16 05:45 Sodium Level 144 mmol/L 144 mmol/L Potassium Level 5.3 mmol/L 4.7 mmol/L Chloride Level 113 mmol/L 112 mmol/L Carbon Dioxide Level 25 mmol/L 25 mmol/L Anion Gap 6.0 mmol/L 7.0 mmol/L Blood Urea Nitrogen 44 mg/dl 46 mg/dl Creatinine 3.40 mg/dl 3.40 mg/dl Est Creatinine Clear Calc Drug Dose 24.2 ml/min 24.2 ml/min Estimated GFR () 21.6 21.6 Estimated GFR (Non- 18.7 18.7 BUN/Creatinine Ratio 13.0 13.7 Random Glucose 210 mg/dl 54 mg/dl Calcium Level 8.2 mg/dl 8.0 mg/dl Phosphorus Level 3.5 mg/dl Total Creatine Kinase 58 U/L Bedside Glucose 223 mg/dl Urine Color YELLOW Urine Appearance CLEAR Urine pH 5.0 Urine Specific [place] 1.016 Urine Protein NEG Urine Glucose (UA) 1+ Urine Ketones NEG Urine Occult Blood NEG Urine Nitrite NEG Urine Bilirubin NEG Urine Urobilinogen NEG Urine Leukocyte Esterase NEG Urine WBC (Auto) 1-5 /hpf Urine RBC (Auto) 0-4 /hpf Urine Hyaline Casts (Auto) 0 /lpf Urine Epithelial Cells (Auto) 0-5 /lpf Urine Bacteria (Auto) NEG Urine Sperm (Auto) PRESENT Test 12/17/16 06:48 12/17/16 07:07 12/17/16 07:27 12/17/16 12:09 Bedside Glucose 53 mg/dl 63 mg/dl 101 mg/dl 198 mg/dl Assessment & Plan 61 y/o M w/ CKD 3 baseline creatinine 1.4-1.6 as recently as 09/2016, DM 1 w/ retinopathy, pvd a/w L 3rd toe osteomyelitis s/p amputation 12/16 and w/ creatinine 3.3 on presentation 12/15, improved to 3.1 on 12/16; up to 3.4 today unchanged non oliguric KEN on CKD 3 w/ improved hyperkalemia in the setting of lisinopril use, likeliest multifactorial ATN in setting of infection, progression of prerenal, use of ACEI and antibiotics. pt anxious about discharge, declining some of my care recommendations today -will stop IV fluids as they have not helped much but potassium -recheck bmp in am -recommended renal u/s for completeness; he declines this; w/ relatively bland urine sediment and not oliguric, I will not argue much with him at this point and cancelled study -cont to hold ACEI including at d/c -ordered low K / renal diet; including at d/c -no acute indication for dialysis but not clear until we see improvement how he will do longer term -recommend repeat bmp at PCP f/u and outpt f/u w/ me in [facility] in 4 -6 wks -diuretics prn only; cont nsaid avoidance -f/u pending cultures Appreciate consult; will follow with you.
[2016-12-17] MEDS ORDERED: INSULIN GLARGINE SOLOSTAR 100 UNITS/ML 3 ML PEN SC ONE (17:45)
--- NOTE | 2016-12-17 18:53 | Consultant Recommendations ---
Gas Compressor Operator Recommendations Date of Service Dec 17, 2016. Gas Compressor Operator Recommendations follow up with Dr. Chaidez 14-18 days after surgical procedure dry sterile dressing change once a day may be weght bearing as tolerated
[2016-12-17 20:47] VITALS: BP 188/91; PULSE 61; TEMP 36.5; O2SAT 99
[2016-12-17] MEDS ORDERED: INSULIN GLARGINE SOLOSTAR 100 UNITS/ML 3 ML PEN SC SCH (21:00)
[2016-12-17] MEDS: HydrALAZINE 10 MG TAB PO PRN (21:06)
[2016-12-17 22:16] VITALS: BP 174/90; PULSE 64; TEMP 36.8; O2SAT 98
--- NOTE | 2016-12-17 22:37 | Progress Note ---
Medicine Progress Note Date & Time of Visit: Dec 17, 2016 at 14:50 . Subjective Hypoglycemic this morning, but asymptomatic. No foot pain. No fever or chills. No chest pain. No cough or shortness of breath. No nausea, vomiting, diarrhea. . Objective Last 8 Hrs Date Time Temp Pulse Resp B/P (MAP) Pulse Ox O2 Delivery O2 Flow Rate FiO2 12/17/16 22:16 36.8 64 18 174/90 (118) 98 Room Air 12/17/16 20:47 36.5 61 16 188/91 (123) 99 Room Air 12/17/16 15:20 36.5 54 16 166/95 (118) 99 Room Air Physical Exam: General- no distress Neck- no JVD Lungs- clear Heart- RRR Abdomen- + BS, soft, nontender Extremities- no pretibial edema or calf tenderness; left foot bandaged Neuro- alert, oriented . Laboratory Results: Last 24 Hours Test 12/17/16 01:00 12/17/16 05:45 12/17/16 06:48 12/17/16 07:07 Urine Color YELLOW Urine Appearance CLEAR Urine pH 5.0 Urine Specific [place] 1.016 Urine Protein NEG Urine Glucose (UA) 1+ Urine Ketones NEG Urine Occult Blood NEG Urine Nitrite NEG Urine Bilirubin NEG Urine Urobilinogen NEG Urine Leukocyte Esterase NEG Urine WBC (Auto) 1-5 /hpf Urine RBC (Auto) 0-4 /hpf Urine Hyaline Casts (Auto) 0 /lpf Urine Epithelial Cells (Auto) 0-5 /lpf Urine Bacteria (Auto) NEG Urine Sperm (Auto) PRESENT Sodium Level 144 mmol/L Potassium Level 4.7 mmol/L Chloride Level 112 mmol/L Carbon Dioxide Level 25 mmol/L Anion Gap 7.0 mmol/L Blood Urea Nitrogen 46 mg/dl Creatinine 3.40 mg/dl Est Creatinine Clear Calc Drug Dose 24.2 ml/min Estimated GFR () 21.6 Estimated GFR (Non- 18.7 BUN/Creatinine Ratio 13.7 Random Glucose 54 mg/dl Calcium Level 8.0 mg/dl Bedside Glucose 53 mg/dl 63 mg/dl Test 12/17/16 07:27 12/17/16 12:09 12/17/16 16:58 12/17/16 20:30 Bedside Glucose 101 mg/dl 198 mg/dl 217 mg/dl 311 mg/dl Assessment & Plan OSTEOMYELITIS LEFT 3rd TOE Initially received IV antibiotic therapy with daptomycin and piperacillin / tazobactam. Orthopedics and ID consulted. Amputation of toe performed by Dr. Chaidez on 12/15. Wound culture growing alpha strep. Blood cultures negative thus far. Transition to oral therapy with amoxicillin/clavulanic acid recommended. HYPERTENSION BP's as high as 188 systolic. Lisinopril held due to KEN. Started on amlodipine. Clonidine or hydralazine PRN. BP this morning = 122/79. Follow and titrate Rx. ACUTE KIDNEY INJURY / CKD III CKD III due to diabetic nephropathy with baseline creatinine of 1.4 on 10/17/16. Serum creatinine on admission 3.3. Denies regular use of NSAID's. Acute kidney injury probably due to volume depletion and / or sepsis. Holding lisinopril. Received IV fluids. Nephrology consulted. Creatinine today = 3.4. Follow. DM TYPE 1 History of poor control. Hgb A1C pending. Pharmacy consulted for glycemic management. Lantus + NovoLog per protocol. FBS this morning = 53. Insulin regimen adjusted. VTE PROPHYLAXIS SQ heparin - held for OR. Ambulate as able. DISPOSITION Expected discharge to home. Orthopedics follow-up with Dr. Chaidez. Follow-up with [facility] recommended. Family Medicine follow-up with Dr. Robles. . Consultants: Orthopedics with Dr. Chaidez. . Procedures: IV antibiotics . Current Inpatient Medications: Current Inpatient Medications Medications (Trade) Dose Ordered Sig/Pati Route Start Time Stop Time Status Last Admin Dose Admin Acetaminophen (Tylenol Tab) 650 mg Q4H PRN PO 12/15/16 14:30 01/14/17 14:29 Al Hydrox/Mg Hydrox/Simethicone (Maalox Max Susp) 15 ml Q4H PRN PO 12/15/16 14:30 01/14/17 14:29 Magnesium Hydroxide (Milk Of Magnesia Susp) 30 ml Q6H PRN PO 12/15/16 14:30 01/14/17 14:29 Polyethylene (Miralax Powder Packet) 17 gm DAILY PRN PO 12/15/16 15:15 01/14/17 15:14 Ondansetron HCl (Zofran Inj) 4 mg Q6H PRN IV 12/15/16 14:30 01/14/17 14:29 Heparin Sodium (Porcine) (Heparin Sq 5000 Unit/0.5ml) 5,000 unit Q12 SQ 12/15/16 15:30 01/14/17 15:29 Future Hold 12/15/16 21:17 5,000 UNIT Glucose (Glucose 40% Gel) 15-30 GRAMS 15 GRAMS... UD PRN PO 12/15/16 14:30 01/14/17 14:29 Glucose (Glucose Chew Tab) 4-8 Tablets 4 Tabl... UD PRN PO 12/15/16 14:30 01/14/17 14:29 Dextrose (Dextrose 50% 50ML Syringe) 25-50ML OF 50% DW IV FOR... UD PRN IV 12/15/16 14:30 01/14/17 14:29 Glucagon (Glucagon Inj) 1 mg UD PRN SQ 12/15/16 14:30 01/14/17 14:29 Miscellaneous Information (Consult Glycemic Management Pharmacy) 1 ea UD PRN N/A 12/15/16 15:22 01/14/17 15:21 Hydralazine HCl (Apresoline Tab) 10 mg Q6H PRN PO 12/15/16 15:00 01/14/17 14:59 12/17/16 21:06 10 MG Aspirin (Ecotrin Tab) 81 mg QAM PO 12/16/16 09:00 01/15/17 08:59 12/17/16 08:37 81 MG Gabapentin (Neurontin Cap) 300 mg TID PO 12/15/16 21:30 01/14/17 21:29 12/17/16 21:07 300 MG Amlodipine Besylate (Norvasc Tab) 5 mg QAM PO 12/16/16 09:00 01/15/17 08:59 12/17/16 08:36 5 MG Clonidine HCl (Catapres Tab) 0.1 mg Q4H PRN PO 12/15/16 20:45 01/14/17 20:44 12/16/16 14:42 0.1 MG Metoprolol Tartrate (Lopressor Tab) 12.5 mg BID PO 12/16/16 21:00 01/15/17 20:59 12/17/16 21:07 12.5 MG Insulin Aspart (novoLOG ASPART) SLIDING SCALE If C... ACHS SC 12/17/16 08:00 01/16/17 07:59 12/17/16 21:12 7 UNITS Amoxicillin/ Clavulanate Potassium (Augmentin Tab) 500 mg BIDM PO 12/17/16 11:30 12/31/16 11:29 12/17/16 18:11 500 MG Insulin Glargine (Lantus Solostar Pen) 7 unit BID SC 12/18/16 09:00 01/17/17 08:59
[2016-12-18 01:35] VITALS: BP 152/74; PULSE 66
[2016-12-18 06:41] LABS: BUN/CREATININE RATIO 13.5 (10-20); CALCIUM 8.2 mg/dl (8.5-10.1); CREATININE 3.1 mg/dl (0.60-1.40); POTASSIUM 5.3 mmol/L (3.5-5.1)
[2016-12-18 06:53] LABS: BETA-HYDROXYBUTYRATE 4.46 mg/dL (0.2-2.81)
[2016-12-18] MEDS ORDERED: INSULIN GLARGINE SOLOSTAR 100 UNITS/ML 3 ML PEN SC ONE (07:30)
--- NOTE | 2016-12-18 07:44 | Clinical Documentation Query ---
CLINICAL DOCUMENTATION QUERY Dr. FRYE, There is an assumed relationship between your patient's diabetes and osteomyelitis - however, a clarification is required if there are other potential causes of osteomyelitis, such as an open fracture. In your clinical opinion is this patient being managed for: ( ) Osteomyelitis L 3rd toe due to crush injury ( ) Other explanation of clinical findings (Please Explain) ( ) Unable to determine (Please Define) ( ) Need to Discuss ( ) Not Agree. Seen by . The medical record reflects the following clinical findings, treatment, and risk factors. Clinical Indicators: 61 yo male presenting after a L 3rd toe injury 2 days prior to ER presentation. Toe xray confirmed Osteomyelitis middle phalanx left third toe. Per documentation, there was exposed bone. Treatment: IV daptomycin, IV zosyn, IV fluids, ID consult, blood and wound cultures, orthopedic consult for L toe amputation Risk Factors: crush injury causing exposed bone, DM, Diabetic neuropathy Please clarify and document your clinical opinion in the progress notes and discharge summary. Terms such as "probable", "suspected", "likely", "questionable", "possible", or "still to be ruled out" are acceptable. IF IN AGREEMENT, YOU MUST DOCUMENT ABOVE DIAGNOSTIC STATEMENT IN DAILY PROGRESS NOTES AND DISCHARGE SUMMARY. This document is not part of the patient's record. Thank You, Sarah Corey RN [phone]
[2016-12-18 07:45] VITALS: BP 142/76; PULSE 67; TEMP 36.7; O2SAT 98
[2016-12-18] MEDS: AMOXICILLIN/CLAVULANATE TAB 500 MG TAB PO SCH (08:00)
[2016-12-18 08:38] VITALS: O2SAT 98
--- NOTE | 2016-12-18 08:48 | Pharmacy Progress Note ---
Glycemic Control: Progress Nt Date of Service Dec 18, 2016. Scope Glycemic Pharmacist consulted by SAAD Jo on 12/15 for glycemic control and to write orders per [facility] inpatient glycemic control protocol. Objective Accuchecks BSG (last 24hrs): Test 12/17/16 12:09 12/17/16 16:58 12/17/16 20:30 12/18/16 06:00 Bedside Glucose 198 mg/dl (70-99) 217 mg/dl (70-99) 311 mg/dl (70-99) Random Glucose 311 mg/dl (70-99) Test 12/18/16 08:25 Bedside Glucose 344 mg/dl (70-99) Laboratory Data (last 24hrs) Test 12/18/16 06:00 Anion Gap 9.0 mmol/L BUN/Creatinine Ratio 13.5 Blood Urea Nitrogen 42 mg/dl Creatinine 3.10 mg/dl Potassium Level 5.3 mmol/L Sodium Level 140 mmol/L HbA1c: Test 12/16/16 06:43 Hemoglobin A1c 9.8 % (4.5-5.6) H Recent Pertinent Medications Outpatient Anti-diabetic Regimen: * Lantus 40 units qAM, Novolog per SS The patient is currently receiving: * Basal insulin: Lantus 7 units every 12 hours - AM dose held 12/17 AM * Correctional Insulin: Novolog Correction per scale ACHS Goal Range: Low 110 mg/dL - High 150 mg/dL Correction Factor: 25 mg/dL/unit * Prandial insulin: Per carb ratio of 1 unit per 8 grams CHO consumed Risk Factors for Insulin Resistance: * Infection: toe wound - on Augmentin * Recent Surgery: POD 2 s/p L 3rd toe amputation * Diet: type 1 diabetes/ AHA Risk Factors for Insulin SENSITIVITY: * KEN on CKD (SCr decreased down to 3.1) Assessment & Plan ASSESSMENT: 12/15/16 * 61 yo male admitted for open L toe wound (bone exposed) secondary to injury. Pt has a h/o of multiple L toe amputations in the past. * Pt with h/o type 1 diabetes. He has been followed by the pharmacy glycemic service during past admissions. * BSG on admission today was 184 mg/dl. 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 No additional Lantus needed today. * During past admission the pt required about 50% of Lantus outpatient dose. Will use past admission data to guide dosing of Lantus and Novolog at least initially 12/17/16 * Patient is currently receiving an average of 44 units of insulin per day * 20 units of basal insulin * 24 units of prandial/correctional insulin * BSGs ranging 54-223 over the past 24hrs * Lantus reduced based on data from previous admissions, and now with fasting hypoglycemia this AM * Suspect this is most likely from the reduced elimination 2/2 KEN * Will need to reduce basal further * No change to prandial insulin since BSGs elevated after meals yesterday 12/18/16 * Patient is currently receiving an average of 40 units of insulin per day * BSGs ranging 54-344 over the past 24hrs * Patient had a low fasting BSG yesterday so basal dose was adjusted. I held the AM dose of Lantus and in hindsight, should have just reduced it, because he is now hyperglycemic * Will plan to continue with the 7 units BID of Lantus but give a loading dose this AM to make up for missed yesterday * Will also plan to tighten CF until BSGs are improved PLAN FOR INPATIENT GLYCEMIC CONTROL: * Continue Lantus 7 units BID but give 10 units x 1 this AM * Tighten correction factor to 20 mg/dl/unit until BSGs controlled * Continue carb ratio of 1 unit per 8 grams CHO consumed * Continue goal range of Low 110 mg/dL - High 150 mg/dL * Continue to follow closely with the KEN RECOMMENDATIONS FOR DISCHARGE: * A1c drawn this admission is worse than one from a year ago - will need to work with peer educator to determine a plan for discharge * Please note that the plan above was derived based on current level of insulin resistance and hospital stress. These recommendations are appropriate for inpatient admission only. Plan of care upon discharge will need to be reassessed to avoid potential outpatient hypo/hyperglycemia. Thank you.
[2016-12-18] MEDS ORDERED: INSULIN GLARGINE SOLOSTAR 100 UNITS/ML 3 ML PEN SC SCH ×2 (09:00→21:00)
[2016-12-18] MEDS: HEPARIN SOD 5000 UNIT/0.5 ML CARP SQ SCH (09:00)
[2016-12-18] MEDS: GABAPENTIN 300 MG CAP PO SCH ×2 (09:02→13:00)
[2016-12-18] MEDS: METOPROLOL TARTRATE 25 MG TAB PO SCH (09:03)
[2016-12-18] MEDS: ASPIRIN 81 MG ECTAB PO SCH (09:04)
[2016-12-18] MEDS: AMLODIPINE BESYLATE 5 MG TAB PO SCH (09:04)
[2016-12-18] MEDS: INSULIN ASPART 100 UNITS/ML 3 ML PEN SC SCH ×2 (09:05→13:00)
[2016-12-18 11:23] VITALS: BP 159/79
[2016-12-18 13:04] VITALS: Ht 177.8 cm; Wt 79.0 kg
--- NOTE | 2016-12-18 13:58 | Orthopedic Progress Note ---
Orthopedic Progress Note Date of Service Dec 18, 2016. Subjective Post OP Day: 2 Reports: feeling well, Denies: complaints Additional Notes: Pt awake, alert. Hoping to go home today. No complaints. Objective Dressings removed. Wound benign. Minimal drainage noted. No purulence noted. Minimal swelling. No overt erythema. Redressed. Date Time Temp Pulse Resp B/P (MAP) Pulse Ox O2 Delivery O2 Flow Rate FiO2 12/18/16 08:38 98 Room Air 12/18/16 08:30 Room Air 12/18/16 07:45 36.7 67 14 142/76 (98) 98 Room Air 12/18/16 01:35 66 152/74 (100) 12/18/16 00:00 Room Air 12/17/16 22:16 36.8 64 18 174/90 (118) 98 Room Air 12/17/16 20:47 36.5 61 16 188/91 (123) 99 Room Air 12/17/16 16:10 Room Air 12/17/16 15:20 36.5 54 16 166/95 (118) 99 Room Air Laboratory Results 24 Hours: RUN DATE: 12/17/16 [facility] PAGE 1 RUN TIME: 928 Specimen Inquiry PATIENT: SAVANA FISCHER LOC: [facility] U # : [id number] AGE/SX: 61/M ROOM: [facility] REG : 12/15/[address]: Bravo Stewart M.D. : 1955 BED: 2 DIS : STATUS: ADM IN TLOC: SPEC #: [id number] DEANA: 12/16/16 STATUS: RES REQ #: [id number] RECD: 12/16/[address]: Bravo Stewart M.D. SOURCE: DRAIN-DEEP ENTR: 12/16/[address]: Laura Horta MD SPDES: TOE L3 Fran Saenz MD, Eric S PA-C Lincoski, Christopher J., MD Piatt, John E., III, M.D. ORDERED: AER/MIREYA CULTSMR Procedure Result Verified Site GRAM STAIN Final 12/16/16 RESULT MODERATE WBCs SEEN MANY GRAM POSITIVE COCCI OR AER/MIREYA CULT Preliminary 12/17/16 Organism 1 ALPHA STREP. QUANITY MODERATE SENS SENSITIVITIES DEPENDENT ON FURTHER IDENTIFICATION Assessment & Plan Assessment: Left 3rd toe osteomyelitis POD 2 s/p amputation of left 3rd toe. Plan: Ok per Ortho for DC Will need daily dressing changes WBAT on the left heel until seen back in office. Instructions placed in EMR Inhouse Planning DVT Prophylaxis: Heparin Drip Discharge Planning Discharge Planning: uncertain
--- NOTE | 2016-12-18 14:05 | Consultant Recommendations ---
Production Line Recommendations Date of Service Dec 18, 2016. Production Line Recommendations follow up with Dr. Chaidez 14 days after surgical procedure. Please call the office for an appointment. [phone] dry sterile dressing change once a day Weight bearing as tolerated on the left heel. No weight on the left forefoot. You may shower as long as there is a waterproof barrier on the left foot. No tub baths. Do not soak the wound. Call the office if you experience increased pain, redness, swelling, or drainage of the wound. Call if you have a fever of 101.5 or greater.
--- NOTE | 2016-12-18 14:49 | Progress Note ---
Medicine Progress Note Date & Time of Visit: Dec 18, 2016 at ~ 11:00 . Subjective Patient insists on being discharged today. No fever, chills, CP, cough, SOB, nausea, vomiting, diarrhea. Blood sugar high this morning. . Objective Last 8 Hrs Date Time Temp Pulse Resp B/P (MAP) Pulse Ox O2 Delivery O2 Flow Rate FiO2 12/18/16 08:38 98 Room Air 12/18/16 08:30 Room Air 12/18/16 07:45 36.7 67 14 142/76 (98) 98 Room Air Physical Exam: General- no distress Neck- no JVD Lungs- clear Heart- RRR Abdomen- + BS, soft, nontender Extremities- no pretibial edema or calf tenderness; left foot bandaged, wearing fracture shoe; no erythema or warmth proximal to dressing Neuro- alert, oriented . Laboratory Results: Last 24 Hours Test 12/17/16 16:58 12/17/16 20:30 12/18/16 06:00 12/18/16 08:01 Bedside Glucose 217 mg/dl 311 mg/dl 320 mg/dl Sodium Level 140 mmol/L Potassium Level 5.3 mmol/L Chloride Level 106 mmol/L Carbon Dioxide Level 25 mmol/L Anion Gap 9.0 mmol/L Blood Urea Nitrogen 42 mg/dl Creatinine 3.10 mg/dl Est Creatinine Clear Calc Drug Dose 26.5 ml/min Estimated GFR () 24.2 Estimated GFR (Non- 20.9 BUN/Creatinine Ratio 13.5 Random Glucose 311 mg/dl Calcium Level 8.2 mg/dl Beta-Hydroxybutyric Acid 4.46 mg/dL Test 12/18/16 08:25 12/18/16 11:47 Bedside Glucose 344 mg/dl 292 mg/dl Assessment & Plan OSTEOMYELITIS LEFT 3rd TOE SECONDARY TO CRUSH INJURY Initially received IV antibiotic therapy with daptomycin and piperacillin / tazobactam. Orthopedics and ID consulted. Amputation of toe performed by Dr. Chaidez on 12/15. Wound culture grew alpha strep. Blood cultures negative thus far. Transitioned to oral therapy with amoxicillin/clavulanic acid. HYPERTENSION BP's as high as 188 systolic. Lisinopril held due to KEN + hyperkalemia. Started on amlodipine. BP this morning = 142/76. Follow and titrate Rx. ACUTE KIDNEY INJURY / CKD III CKD III due to diabetic nephropathy with baseline creatinine of 1.4 on 10/17/16. Serum creatinine on admission 3.3. Denies regular use of NSAID's. Acute kidney injury probably due to volume depletion and / or sepsis. Stopped lisinopril. Received IV fluids. Nephrology consulted. Patient not willing to undergo US for further evaluation. Creatinine jaya as high as 3.4. Creatinine today = 3.1. Follow. HYPERKALEMIA Serum K as high as 5.4. Lisinopril discontinued. Low K diet. Follow. DM TYPE 1 History of poor control. Hgb A1C pending. Pharmacy consulted for glycemic management. Lantus + NovoLog per protocol. FBS this morning = 320. VTE PROPHYLAXIS SQ heparin - held for OR. Ambulate as able. DISPOSITION Continued hospitalization recommended to monitor renal function and achieve better glycemic control. Patient insists on being discharged to home today. Orthopedics follow-up with Dr. Chaidez. Follow-up with [facility] to be scheduled. Family Medicine follow-up with Dr. Robles. Outpatient Nephrology referral suggested. . Consultants: Orthopedics with Dr. Chaidez. . Procedures: IV antibiotics . Current Inpatient Medications: Current Inpatient Medications Medications (Trade) Dose Ordered Sig/Pati Route Start Time Stop Time Status Last Admin Dose Admin Acetaminophen (Tylenol Tab) 650 mg Q4H PRN PO 12/15/16 14:30 01/14/17 14:29 Al Hydrox/Mg Hydrox/Simethicone (Maalox Max Susp) 15 ml Q4H PRN PO 12/15/16 14:30 01/14/17 14:29 Magnesium Hydroxide (Milk Of Magnesia Susp) 30 ml Q6H PRN PO 12/15/16 14:30 01/14/17 14:29 Polyethylene (Miralax Powder Packet) 17 gm DAILY PRN PO 12/15/16 15:15 01/14/17 15:14 Ondansetron HCl (Zofran Inj) 4 mg Q6H PRN IV 12/15/16 14:30 01/14/17 14:29 Heparin Sodium (Porcine) (Heparin Sq 5000 Unit/0.5ml) 5,000 unit Q12 SQ 12/15/16 15:30 01/14/17 15:29 Future hold 12/15/16 21:17 5,000 UNIT Glucose (Glucose 40% Gel) 15-30 GRAMS 15 GRAMS... UD PRN PO 12/15/16 14:30 01/14/17 14:29 Glucose (Glucose Chew Tab) 4-8 Tablets 4 Tabl... UD PRN PO 12/15/16 14:30 01/14/17 14:29 Dextrose (Dextrose 50% 50ML Syringe) 25-50ML OF 50% DW IV FOR... UD PRN IV 12/15/16 14:30 01/14/17 14:29 Glucagon (Glucagon Inj) 1 mg UD PRN SQ 12/15/16 14:30 01/14/17 14:29 Miscellaneous Information (Consult Glycemic Management Pharmacy) 1 ea UD PRN N/A 12/15/16 15:22 01/14/17 15:21 Hydralazine HCl (Apresoline Tab) 10 mg Q6H PRN PO 12/15/16 15:00 01/14/17 14:59 12/17/16 21:06 10 MG Aspirin (Ecotrin Tab) 81 mg QAM PO 12/16/16 09:00 01/15/17 08:59 12/18/16 09:04 81 MG Gabapentin (Neurontin Cap) 300 mg TID PO 12/15/16 21:30 01/14/17 21:29 12/18/16 13:00 300 MG Amlodipine Besylate (Norvasc Tab) 5 mg QAM PO 12/16/16 09:00 01/15/17 08:59 12/18/16 09:04 5 MG Clonidine HCl (Catapres Tab) 0.1 mg Q4H PRN PO 12/15/16 20:45 01/14/17 20:44 12/16/16 14:42 0.1 MG Metoprolol Tartrate (Lopressor Tab) 12.5 mg BID PO 12/16/16 21:00 01/15/17 20:59 12/18/16 09:03 12.5 MG Insulin Aspart (novoLOG ASPART) SLIDING SCALE If C... ACHS SC 12/17/16 08:00 01/16/17 07:59 12/18/16 13:00 16 UNITS Amoxicillin/ Clavulanate Potassium (Augmentin Tab) 500 mg BIDM PO 12/17/16 11:30 12/31/16 11:29 12/18/16 08:00 500 MG Insulin Aspart (novoLOG ASPART) SLIDING SCALE If C... 0200 ONCE SC 12/19/16 02:00 12/19/16 02:01 Insulin Glargine (Lantus Solostar Pen) 9 unit BID SC 12/18/16 21:00 01/17/17 20:59
[2016-12-18] MEDS ORDERED: AMLO-110 PO (15:02)
[2016-12-18] MEDS ORDERED: AMOX875T PO (15:02)
--- NOTE | 2016-12-18 15:09 | Discharge Instructions ---
Discharge Instructions Date of Service Dec 18, 2016. Admission Reason for Admission: infected toe . Discharge Discharge Diagnosis / Problem: infected toe Discharge Goals Goal(s): Improve disease control Activity Recommendations Activity Limitations: resume your previous activity . Instructions / Follow-Up Instructions / Follow-Up APPOINTMENTS: FAMILY MEDICINE 12/24/2016 11:20 AM Bravo Robles III, MD ORTHOPEDICS Dr. Chaidez Please call his office for appointment the week of December 31. [facility] Office will contact you with appointment. INSTRUCTIONS: Dressing on left foot should be changed daily. Home health nursing will help. Wear special sandal on left foot whenever you are walking. Stop lisinopril (Prinivil). Start amlodipine (Norvasc) 1 pill daily for blood pressure. Seek medical attention if you have: * temperature above 101 * chest pain or trouble breathing * abdominal pain, nausea, vomiting * diarrhea, dark stools or bloody stools * drainage from foot * any unanswered questions or concerns Call 911 if symptoms are severe. Call if you have any questions or problems. My cell # is [phone]. You can also reach a [facility] hospitalist on duty at [facility] 24 hours a day by calling [phone]. Please take good care of yourself. Bravo Stewart . Current Hospital Diet Patient's current hospital diet: Diabetes Type 1 Diet, AHA Diet (Heart Healthy) , Renal Diet Discharge Diet Recommended Diet: AHA Diet (Heart Healthy), Diabetes Type 1 Diet, Low Potassium Diet (2g K) Procedures Procedures Performed: Left 3rd toe amputation Pending Studies Studies pending at discharge: no Laboratory Results Hemoglobin A1c Test 12/16/16 06:43 Range/Units Estimated Average Glucose 235 mg/dl Hemoglobin A1c 9.8 H 4.5-5.6 % Medical Emergencies . Who to Call and When: Medical Emergencies: If at any time you feel your situation is an emergency, please call 911 immediately. . Non-Emergent Contact Non-Emergency issues call your: Primary Care Provider, Hospital Doctor . . "Provider Documentation" section prepared by Bravo Stewart. . Stratigrapher Recommendations Stratigrapher Recommendations: follow up with Dr. Chaidez 14 days after surgical procedure. Please call the office for an appointment. [phone] dry sterile dressing change once a day Weight bearing as tolerated on the left heel. No weight on the left forefoot. You may shower as long as there is a waterproof barrier on the left foot. No tub baths. Do not soak the wound. Call the office if you experience increased pain, redness, swelling, or drainage of the wound. Call if you have a fever of 101.5 or greater. VTE Core Measure Inpt VTE Proph given/why not?: Unfractionated heparin SQ
[2016-12-18 15:11] VITALS: BP 158/84; PULSE 60; TEMP 36.6; O2SAT 98
[2016-12-18] MEDS ORDERED: GABA1CAP4 PO (15:26)
--- NOTE | 2016-12-18 15:29 | Discharge Summary ---
Discharge Summary Date of Service Dec 18, 2016. Discharge Summary Admission Date: Dec 15, 2016 at 13:21 Discharge Date: Dec 18, 2016 Discharge Disposition: Home with services Principal Diagnosis: osteomyelitis left 3rd toe due to crush injury . Secondary Diagnoses/Problems: Other Acute Medical Problems: acute kidney injury hyperkalemia Chronic Medical Problems: (1) Diabetic neuropathy Status: Chronic (2) DM type 1 (diabetes mellitus, type 1) Status: Chronic (3) History of osteomyelitis Status: Chronic (4) PVD (peripheral vascular disease) Status: Chronic Surgical Problems: (1) H/O eye surgery Status: Chronic (2) S/P amputation of lesser toe Permanent Comment: right second and third toe Status: Chronic (3) S/P debridement Permanent Comment: 02/03/2016- debridement L foot wound dehiscence Status: Chronic . Procedures: IV antibiotics amputation left 3rd toe by Dr. Chaidez 12/16/16 . Consultations: Orthopedics with Dr. Chaidez. Pharmacy for glycemic management . Pending Studies/Follow-Up: Please check basic metabolic profile in clinic. Please offer referral for Nephrology follow-up re: CKD. . Medication Reconciliation New Medications: Amlodipine (Norvasc) 5 Mg Tab 5 MG PO DAILY, #30 TAB 5 Refills Amoxicillin & Pot Clavulanate (Augmentin 875-125 mg) 1 Tab Tab 875 MG PO BID, #26 TAB Take 1 pill twice a day with food. Continued Medications: Aspirin (Aspirin EC Low Dose) 81 Mg Ectab 81 MG PO QAM for 30 Days Atorvastatin (Atorvastatin Calcium) 40 Mg Tab 40 MG PO QAM Gabapentin (Gabapentin) 300 Mg Cap 600 MG PO BID, CAP Insulin Aspart (Novolog) 100 Units/Ml Inj 1 DOSE SQ UD per sliding scale Insulin Glargine (Lantus Solostar) 100 Unit/Ml Inj 40 UNITS SC QAM Discontinued Medications: Lisinopril (Zestril) 20 Mg Tab 20 MG PO QAM, 0 Refills Admission Information HPI (per Admitting provider): This is a 61 yo male that has a history of DM Type I with previous multiple left toe amputations that injured his left 3rd toe 2 days ago. Last night he began to clean his injured toe to avoid infection and pulled a scab off revealing exposed bone. He then presented to the ED this morning for further evaluation and treatment. He has no pain to the toe and was started on Daptomycin IV. Ortho has been consulted and Dr. Chaidez stated that he will most likely entertain amputation in the OR tomorrow. Patient also found to be in acute renal failure with a creatinine of 3.3 with BUN of 59. Aside from his acute injury, the patient has no other complaints. He denies SOB, chest pain, nausea, vomiting, diarrhea, recent illness or travel. . Physical Exam (per Admitting): Vital Signs - as noted below Laboratory Data - as noted below Physical Exam: General - NAD, Pleasant Eyes - No icterus, gaze conjugate. PERRL ENT - Mucosa moist, no lesions or candidiasis Neck - Supple, No JVD. No bruits or stridor Lungs - No bronchospasm, rales, or rhonchi. Good aeration Heart - Regular, rate controlled. No appreciation of murmurs Abdomen - Soft, NT, ND, BS present. No pain with palpation Extremities - No edema, pedal pulses intact. Dressing dry and intact to left 3rd toe Neuro - A&OX3. No pronator drift. Cerebellar function intact with NIRAJ, FTN, HTS. Hospital Course OSTEOMYELITIS LEFT 3rd TOE SECONDARY TO CRUSH INJURY Initially received IV antibiotic therapy with daptomycin and piperacillin / tazobactam. Orthopedics and ID consulted. Amputation of toe performed by Dr. Chaidez on 12/15. Wound culture grew alpha strep. Blood cultures negative thus far. Transitioned to oral therapy with amoxicillin/clavulanic acid. HYPERTENSION BP's as high as 188 systolic. Lisinopril held due to KEN + hyperkalemia. Started on amlodipine. BP this morning = 142/76. Follow and titrate Rx. ACUTE KIDNEY INJURY / CKD III CKD III due to diabetic nephropathy with baseline creatinine of 1.4 on 10/17/16. Serum creatinine on admission 3.3. Denies regular use of NSAID's. Acute kidney injury probably due to volume depletion and / or sepsis. Stopped lisinopril. Received IV fluids. Nephrology consulted. Patient not willing to undergo US for further evaluation. Creatinine jaya as high as 3.4. Creatinine today = 3.1. Follow. HYPERKALEMIA Serum K as high as 5.4. Lisinopril discontinued. Low K diet. Follow. DM TYPE 1 History of poor control. Hgb A1C pending. Pharmacy consulted for glycemic management. Lantus + NovoLog per protocol. FBS this morning = 320. VTE PROPHYLAXIS SQ heparin - held for OR. Ambulate as able. DISPOSITION Continued hospitalization recommended to monitor renal function and achieve better glycemic control. Patient insists on being discharged to home today. Orthopedics follow-up with Dr. Chaidez. Follow-up with [facility] to be scheduled. Family Medicine follow-up with Dr. Robles. Outpatient Nephrology referral suggested. . Total time spent on discharge = 40 min. This includes examination of the patient, discharge planning, medication reconciliation, and communication with other providers. . Discharge Instructions Date of Service Dec 18, 2016. Admission Reason for Admission: infected toe . Discharge Discharge Diagnosis / Problem: infected toe Discharge Goals Goal(s): Improve disease control Activity Recommendations Activity Limitations: resume your previous activity . Instructions / Follow-Up Instructions / Follow-Up APPOINTMENTS: FAMILY MEDICINE 12/24/2016 11:20 AM Bravo Robles III, MD ORTHOPEDICS Dr. Chaidez Please call his office for appointment the week of December 31. [facility] Office will contact you with appointment. INSTRUCTIONS: Dressing on left foot should be changed daily. Home health nursing will help. Wear special sandal on left foot whenever you are walking. Stop lisinopril (Prinivil). Start amlodipine (Norvasc) 1 pill daily for blood pressure. Seek medical attention if you have: * temperature above 101 * chest pain or trouble breathing * abdominal pain, nausea, vomiting * diarrhea, dark stools or bloody stools * drainage from foot * any unanswered questions or concerns Call 911 if symptoms are severe. Call if you have any questions or problems. My cell # is [phone]. You can also reach a [facility] hospitalist on duty at [facility] 24 hours a day by calling [phone]. Please take good care of yourself. Bravo Stewart . Current Hospital Diet Patient's current hospital diet: Diabetes Type 1 Diet, AHA Diet (Heart Healthy) , Renal Diet Discharge Diet Recommended Diet: AHA Diet (Heart Healthy), Diabetes Type 1 Diet, Low Potassium Diet (2g K) Procedures Procedures Performed: Left 3rd toe amputation Pending Studies Studies pending at discharge: no Laboratory Results Hemoglobin A1c Test 12/16/16 06:43 Range/Units Estimated Average Glucose 235 mg/dl Hemoglobin A1c 9.8 H 4.5-5.6 % Medical Emergencies . Who to Call and When: Medical Emergencies: If at any time you feel your situation is an emergency, please call 911 immediately. . Non-Emergent Contact Non-Emergency issues call your: Primary Care Provider, Hospital Doctor . . "Provider Documentation" section prepared by Bravo Stewart. . Factory Process Workers Recommendations Factory Process Workers Recommendations: follow up with Dr. Chaidez 14 days after surgical procedure. Please call the office for an appointment. [phone] dry sterile dressing change once a day Weight bearing as tolerated on the left heel. No weight on the left forefoot. You may shower as long as there is a waterproof barrier on the left foot. No tub baths. Do not soak the wound. Call the office if you experience increased pain, redness, swelling, or drainage of the wound. Call if you have a fever of 101.5 or greater. VTE Core Measure Inpt VTE Proph given/why not?: Unfractionated heparin SQ . Additional Copies To Kenny Webb P.A.; Garrett Chaidez MD; Bravo Robles III, M.D.
[2016-12-18 16:35] VITALS: BP 158/84; PULSE 60; TEMP 36.6; O2SAT 98
[2016-12-19] MEDS ORDERED: INSULIN ASPART 100 UNITS/ML 3 ML PEN SC ONE (02:00)
== END 2016-12-18 17:20 | disposition home health service (06) | DRG 504 ==
LOC: C.EDB 10:40 → C.MSN 13:21 → ENRESERV 13:45
PROVIDERS: ADMIT Hospitalist; ATTEND Hospitalist
PROC: 0Y6U0Z0 Detachment at Left 3rd Toe, Complete, Open Approach (ICD-10-PCS; principal; 2016-12-16 11:00)
DX: M86.9 Osteomyelitis, unspecified (principal); N17.9 Acute kidney failure, unspecified; N18.3 Chronic kidney disease, stage 3 (moderate); E10.40 Type 1 diabetes mellitus with diabetic neuropathy, unspecified; I73.9 Peripheral vascular disease, unspecified; Z89.422 Acquired absence of other left toe(s); Z86.73 Personal history of transient ischemic attack (TIA), and cerebral infarction without residual deficits; Z83.3 Family history of diabetes mellitus; Z79.82 Long term (current) use of aspirin; Z79.4 Long term (current) use of insulin

== ENCOUNTER 2020-02-17 05:31 | Observation (INO) ==
[2020-02-17 06:13] LABS: Basophils # (auto) 0.02 K/uL (0-0.2); Basophils % (auto) 0.2 %; Eosinophils # (auto) 0.04 K/uL (0-0.5); Eosinophils % (auto) 0.5 %; Hematocrit (blood only) 43.3 % (42-52); Hemoglobin 15.1 g/dL (14.0-18.0); Immature Granulocytes # (auto) 0.04 K/uL (0.00-0.02); Immature Granulocytes % (auto) 0.5 %; Lymphocytes # (auto) 1.28 K/uL (1.2-3.4); Mean Corpuscular Hemoglobin 30.3 pg (25-34); Mean Corpuscular Hgb Conc 34.9 g/dL (32-36); Mean Corpuscular Volume 86.9 fL (80-100); Mean Platelet Volume 11.4 fL (7.4-10.4); Monocytes # (auto) 0.67 K/uL (0.11-0.59); Monocytes % (auto) 7.9 %; Neutrophils # (auto) 6.47 K/uL (1.4-6.5); Neutrophils % (auto) 75.9 %; Platelet Count 199 K/uL (130-400); RDW Standard Deviation 41.3 fL (36.4-46.3); Red Blood Count 4.98 M/uL (4.7-6.1); White Blood Count 8.52 K/uL (4.8-10.8)
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
[2020-02-17 06:20] LABS: INR 1.1 (0.9-1.1); Partial Thromboplastin Time 29.2 Seconds (21.0-31.0); Prothrombin Time 11.7 Seconds (9.0-12.0)
[2020-02-17 06:31] LABS: Alanine Aminotransferase 21 U/L (12-78); Albumin Level 3.5 gm/dl (3.4-5.0); Aspartate Aminotransferase 14 U/L (15-37); BUN Creatinine Ratio 18.4 (10-20); Blood Urea Nitrogen 27 mg/dl (7-18); Calcium 8.9 mg/dl (8.5-10.1); Carbon Dioxide 25 mmol/L (21-32); Chloride 113 mmol/L (98-107); Creatinine Clr Calc Pharmacy 55.9 ml/min; Est GFR (African American) 58.9; Est GFR (Non-African American) 50.8; Glucose 54 mg/dl (70-99); Magnesium 2.1 mg/dl (1.8-2.4); Potassium 3.8 mmol/L (3.5-5.1); Sodium 144 mmol/L (136-145)
[2020-02-17 06:35] LABS: Alkaline Phosphatase 84 U/L (45-117); Bilirubin,Total 0.4 mg/dl (0.2-1); Globulin 3.4 gm/dl (2.5-4.0); Total Protein 6.9 gm/dl (6.4-8.2); Troponin I < 0.015 ng/ml (0-0.045)
[2020-02-17] MEDS ORDERED: OPTIRAY 320 125ml IV ONE (06:40)
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
[2020-02-17] MEDS ORDERED: GLUCAGON FOR INJ 1 MG VIAL SQ PRN (09:50)
[2020-02-17] MEDS ORDERED: GLUCOSE 10 TABS/TUBE PO PRN (09:50)
[2020-02-17] MEDS ORDERED: ALUMINUM/MAGNESIUM SUSP 30 ML UDC PO PRN (09:50)
[2020-02-17] MEDS ORDERED: ACETAMINOPHEN 325 MG TAB PO PRN (09:50)
[2020-02-17] MEDS ORDERED: DEXTROSE 50% 50 ML SYRINGE IV PRN (09:50)
[2020-02-17] MEDS ORDERED: CARBOHYDRATES FOR HYPOGLYCEMIA PO PRN (09:50)
[2020-02-17] MEDS ORDERED: GLUCOSE 40% GEL 15 GM TUBE PO PRN (09:50)
[2020-02-17] MEDS ORDERED: MAGNESIUM HYDROXIDE SUSP 30 ML UDC PO PRN (09:50)
[2020-02-17] MEDS ORDERED: INSULIN GLARGINE SOLOSTAR 100 UNITS/ML 3 ML PEN SC SCH (09:50)
[2020-02-17] MEDS ORDERED: ONDANSETRON INJ 2 MG/ML 2 ML VIAL IV PRN (09:50)
[2020-02-17] MEDS ORDERED: POLYETHYLENE (MIRALAX) 17 GM PACK PO PRN (09:50)
[2020-02-17] MEDS ORDERED: MECLIZINE HCL 25 MG TAB PO PRN (09:56)
[2020-02-17] MEDS ORDERED: PHARMACY GLYCEMIC MGMT CONSULT PRN (10:08)
[2020-02-17] MEDS: ASPIRIN 81 MG ECTAB PO SCH (10:50)
[2020-02-17] MEDS: GABAPENTIN 600 MG TAB PO SCH ×2 (10:50→20:38)
[2020-02-17] MEDS: AMLODIPINE BESYLATE 5 MG TAB PO SCH (10:51)
[2020-02-17] MEDS: CARBAMIDE PEROXIDE 6.5% 15 ML BTL OT SCH ×2 (10:52→20:41)
--- NOTE | 2020-02-17 10:59 | Pharmacy Report ---
Glycemic Control Consultation - Date of Service February 17, 2020 - Scope Scope: Glycemic Pharmacist consulted for glycemic control and to write orders per formerly [facility] inpatient glycemic control protocol. - Objective Weight: 81.1 kg Accuchecks BSG (last 24hrs): 02/17/20 02/17/20 02/17/20 05:50 08:07 08:31 Glucose 54 L POC Glucose 56 L* 58 L* 02/17/20 02/17/20 08:32 08:46 Glucose POC Glucose 61 L* 80 Laboratory Data (last 24hrs): 02/17/20 05:50 Potassium 3.8 Carbon Dioxide 25 Anion Gap 6.0 Creatinine 1.46 H Est Cr Clr Drug Dosing 55.9 - Recent Pertinent Medications Outpatient Anti-diabetic Regimen: * Lantus 40 units SC qAM * Novolog 10 units SC HS * A1c ordered for tomorrow AM - Assessment & Plan Assessment & Plan: ASSESSMENT: * JONAH is a 64 year old male who presented to the ED with vertigo x 3-4 hours * BSG of 54 mg/dL in ED - patient states that he has had low BSGs in the past and not experienced his current symptoms * Patient has history of type 1 DM with diabetic retinopathy, nephropathy, and neuropathy (hx of toe amputation 2018) * Confirmed outpatient regimen with patient - last dose of Lantus was yesterday morning (02/15) * No insulin administered so far today * Pre-lunch BSG of 211 mg/dL - will order Lantus dose for now * Conservative Novolog parameters to start PLAN FOR INPATIENT GLYCEMIC CONTROL: * Basal insulin * Lantus 30 units (75% of home dose) x 1 today at lunchtime * Reassess tomorrow AM * Bolus insulin * NovoLog per scale ACHS or Q6hrs while NPO * Goal Range: Low 120 mg/dL - High 160 mg/dL * Correction Factor: 40 mg/dL/unit * Nutritional / Prandial insulin per carb ratio of 1 unit per 12 grams CHO consumed * Will plan to 0000 check with same parameters * Please note that the plan above was derived based on current level of insulin resistance and hospital stress. These recommendations are appropriate for inpatient admission only. Plan of care upon discharge will need to be reassessed to avoid potential outpatient hypo/hyperglycemia. Thank you.
[2020-02-17] MEDS ORDERED: INSULIN ASPART 100 UNITS/ML 3 ML PEN SC SCH (11:30)
[2020-02-17 11:42] LABS: Lyme Ab IgG w/WB Rflx Negative (Negative); Lyme Ab IgM w/WB Rflx Negative (Negative)
[2020-02-17] MEDS ORDERED: INSULIN GLARGINE SOLOSTAR 100 UNITS/ML 3 ML PEN SC ONE (12:00)
[2020-02-17] MEDS: INSULIN ASPART 100 UNITS/ML 3 ML PEN SC SCH ×3 (12:07→20:59)
--- NOTE | 2020-02-17 12:25 | Electrocardiogram Report ---
Test Reason : Blood Pressure : / mmHG Vent. Rate : 064 BPM Atrial Rate : 064 BPM P-R Int : 156 ms QRS Dur : 076 ms QT Int : 408 ms P-R-T Axes : 055 -03 060 degrees QTc Int : 420 ms Poor data quality, interpretation may be adversely affected Normal sinus rhythm Low voltage QRS Borderline ECG When compared with ECG of 22-OCT-2018 09:39, No significant change was found Confirmed by Kushal Mejia ([id number]) on 02/17/2020 12:25:31 PM Referred By: REFERRED SELF Confirmed By:Kushal Mejia
--- NOTE | 2020-02-17 12:54 | XRay Report ---
ORBIT RADIOGRAPHS 3 VIEWS HISTORY: pre-MRI screening. COMPARISON: None. FINDINGS: There are no radiopaque foreign bodies identified within the orbits. IMPRESSION: No radiopaque foreign bodies identified within the orbits. ACT 112: Negative or not required by law. Electronically signed by: Jacob Reyes M.D. 02/17/2020 12:52 PM
[2020-02-17] MEDS ORDERED: GADOBUTROL 65ML VIAL IV ONE (13:43)
--- NOTE | 2020-02-17 13:58 | Magnetic Resonance Report ---
MR brain wo/w con HISTORY: 64 years-old Male vertigo acute vertigo COMPARISON: Head CT 02/17/2020, brain MRI 03/06/2016 TECHNIQUE: Multiplanar multisequence MRI of the brain was obtained both with and without the use of 8 .0 mL Gadavist FINDINGS: [employer] local[employer] images demonstrate no gross extracranial abnormality. There is no restricted diffusio n to suggest acute or subacute infarct. Midline structures including the corpus callosum, optic chias m, pituitary and pineal glands appear unremarkable the sagittal T1 series. No cerebellar tonsillar he rniation. Degenerative changes are noted involving the imaged cervical spine. No acute intracranial hemorrhage, midline shift, abnormal extra-axial collection, hydrocephalus or in tracranial mass. Age-related involutional changes. Patency of the major vascular flow voids. Mild muc osal thickening of the paranasal sinuses. Prior bilateral lens replacement. The skull and soft tissue s are unremarkable. Remote right pontine lacunar infarct. Probable additional tiny remote lacunar inf arcts of the carbajal radiata, thalami and basal ganglia. No significant T2/FLAIR signal abnormalities of the brain parenchyma. There is no abnormal intra-axial or extra-axial enhancement. There is mild n onspecific perinephric enhancement involving a left maxillary tooth on image 1 series 8, partially im aged. IMPRESSION: 1. No acute intracranial abnormality, specifically there is no evidence of acute or subacute infarct. 2. No abnormal enhancement. ACT 112: Negative or not required by law. The above report was generated using voice recognition software. It may contain grammatical, syntax o r spelling errors. Electronically signed by: Steven Mathews M.D. 02/17/2020 1:57 PM
[2020-02-17] MEDS: HEPARIN SOD 5,000 UNIT/0.5 ML VIAL SQ SCH ×2 (14:40→21:17)
--- NOTE | 2020-02-17 16:40 | Communication Note ---
Date of Service: February 17, 2020 Care he was admitted for observation following an episode of vertigo perhaps associated with some hypoglycemia and his symptoms have cleared. 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 but this is stable and an MRI scan showed no evidence for an acute infarction in the posterior circulation distribution Currently he is asymptomatic and on exam he has evidence for a presumptive diabetic polyneuropathy with areflexia and loss of vibratory sense and reduced proprioception over the feet mild nonspecific dysarthria speech which she is unaware and has no lateralizing value neurologically He does have multiple vascular risk factors associated with his type 1 diabetes, has known peripheral vascular disease, and the diabetic neuropathy, 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 monitoring for recurrent hypoglycemia, I think he could be discharged from a neurologic point of view and followed up by his primary care physician I believe he should be at least on a baby aspirin a day for primary and/or secondary stroke prevention in addition to potential coronary artery protection I do not think he needs follow-up with neurology unless he develops recurrent events of a similar type Bravo Patricia MD
[2020-02-17 20:59] LABS: Appearance Urine Clear (Clear); Bacteria Urine Automated Negative (Negative); Bilirubin Urine Negative (Negative); Blood Urine Negative (Negative); Cast Urine Automated 0 /lpf (0-5); Color Urine Yellow; Epithelial Cell Urine Auto 0-5 /lpf (0-5); Glucose Urine UA Negative (Negative); Ketones Urine Negative (Negative); Leukocyte Esterase Urine Negative (Negative); Nitrite Urine Negative (Negative); Protein Urine 2+ (Negative); RBC Urine Automated 0-4 /hpf (0-4); Specific Gravity Urine 1.032 (1.000-1.030); Urobilinogen Urine Negative (Negative)
[2020-02-17] MEDS ORDERED: SIMVASTATIN 10 MG TAB PO SCH (21:00)
[2020-02-18] MEDS ORDERED: INSULIN ASPART 100 UNITS/ML 3 ML PEN SC SCH
[2020-02-18] MEDS: HEPARIN SOD 5,000 UNIT/0.5 ML VIAL SQ SCH (05:40)
[2020-02-18 07:36] LABS: Estimated Average Glucose 157 mg/dl; Hemoglobin A1C 7.1 % (4.5-5.6)
[2020-02-18] MEDS: CARBAMIDE PEROXIDE 6.5% 15 ML BTL OT SCH (07:41)
[2020-02-18] MEDS: GABAPENTIN 600 MG TAB PO SCH (07:41)
[2020-02-18] MEDS: ASPIRIN 81 MG ECTAB PO SCH (07:41)
[2020-02-18] MEDS: AMLODIPINE BESYLATE 5 MG TAB PO SCH (07:41)
[2020-02-18] MEDS: INSULIN ASPART 100 UNITS/ML 3 ML PEN SC SCH ×2 (08:51→12:05)
--- NOTE | 2020-02-18 11:40 | Hospitalist Progress Note ---
Date of Service February 18, 2020 Assessment & Plan (1) Vertigo: Admitted with dizziness since the morning of admission He was not able to move around due to ongoing dizziness Denied any associated symptoms with dizziness Remains stable since admission No complaints this morning (2) Hypoglycemia: This is a 64-year-old male who has significant past medical history of type 1 diabetes mellitus since age 20, diabetic neuropathy, diabetic nephropathy with CKD stage III, diabetic retinopathy, HTN, HLD, PVD who presents to ED secondary to dizziness x3 to 4 hours. Noted to have hypoglycemic episodes once in ER with the blood sugar went down to lower 50s and Another episode this morning the blood sugar is around 150s again His Lantus doses will be decreased to 20 units daily (instead of 40 units daily)on discharge home today (3) DM type 1 (diabetes mellitus, type 1): Type 1 diabetes mellitus since age 20 Associated with diabetic neuropathy, nephropathy and retinopathy Last A1c 8.4 09/2018, obtain A1c 7.1 on 02/17/2020 Lantus/NovoLog per protocol Glycemic pharmacy consult, appreciate their management As above (4) Excessive cerumen in both ear canals: debrox gtt Advised to follow-up with primary care doctor (5) HTN (hypertension): Blood pressure elevated in ED Did not take a.m. medications Continue amlodipine, first dose now (6) CKD (chronic kidney disease) stage 3, GFR 30-59 ml/min: Baseline creatinine 1.5-1.7 Diabetic nephropathy BUN/creatinine 27 and 1.46 today Monitor renal function-creatinine improved to 1.46 He was advised to drink more fluid (7) HLD (hyperlipidemia): Continue statin Fasting lipid panel in a.m. (8) PVD (peripheral vascular disease): Continue ASA, statin (9) Diabetic neuropathy: Continue gabapentin (10) Stroke: Stroke has been ruled out and the strokelike symptoms were secondary to hypoglycemic episodes hx of cva w/o residual deficit lacunar infarcts continue ASA, statin Appreciate neurology input and recommendation (11) DVT prophylaxis: SQ Heparin FULL CODE Disposition: admit to med tele Follow up: PCP Dr. Robles upon discharge We will discharge him this afternoon Admission and Anticipated Discharge Date Admission Date: February 17, 2020 Subjective 02/18/2020 The patient was seen and examined in medical telemetry unit He has been feeling a lot better and denies any more dizziness He denies any other symptoms and did very well with physical therapy He will be discharging home this afternoon Review of Systems Review of Systems: All systems reviewed and are unremarkable except as noted below Neurologic: no gait abnormality, no unsteadiness, no tremor(s) and no dizziness Physical Exam Physical Exam: Constitutional: WD/WN, male, vitals as above, NAD, sitting up in bed, pleasant, conversing easily Head: Normocephalic, Atraumatic Eyes: PERRL, conjunctivae normal, anicteric sclerae ENMT: external ear and nose normal, EAC + cerumen, oropharynx normal Neck: trachea midline, no thyromegaly normal visual inspection Respiratory: normal respiratory effort, lungs clear to auscultation, no wheeze, rales, rhonchi. Normal insp/exp effort, no accessory muscle use Cardiovascular: RRR, no murmur, no edema Vessels: no JVD or carotid bruit Chest: normal inspection of chest Abdomen: normal bowel sounds, soft, nontender, no hepatosplenomegaly Musculoskeletal: no cyanosis or clubbing, extremities motor strength 5/5 Skin: no rashes, warm and dry normal turgor Neurologic: ambulates without any assistance, PERRL, EOMI, accommodation nl, no face palsy, no dysarthria CN's II-XI intact bilaterally and moves all extremities Psychiatric: A+Ox3, euthymic affect Lymphatic: no cervical or axillary lymphadenopathy Results & Data Results & Data ([facility]) Vital Signs (Past 12 Hours) Vital Signs Temp Pulse Pulse Resp BP Pulse Ox 02/18/20 08:00 60 02/18/20 07:15 36.9 C 62 16 161/79 H 97 02/18/20 04:00 36.8 C 70 18 145/83 H 98 02/18/20 00:18 65 Laboratory Results Urine 02/17/20 Range/Units 20:45 Urine Color Yellow Urine Appearance Clear (Clear) Urine pH 5.0 (4.5-7.5) Ur Specific [place] 1.032 H (1.000-1.030) Urine Protein 2+ H (Negative) Urine Glucose (UA) Negative (Negative) Medications Administered Current Inpatient Medications Acetaminophen (Acetaminophen 325 Mg Tab) 650 mg PO Q4H PRN PRN Reason: Pain or Fever Stop: 03/18/20 09:49 Al Hydrox/Mg Hydrox/Simethicone (Aluminum/Magnesium Susp 30 Ml Udc) 15 ml PO Q4H PRN PRN Reason: Dyspepsia Stop: 03/18/20 09:49 Amlodipine Besylate (Amlodipine Besylate 5 Mg Tab) 5 mg PO QAM [facility] Stop: 03/18/20 09:49 Last Admin: 02/18/20 07:41 Dose: 5 mg Documented by: Aspirin (Aspirin 81 Mg Ectab) 81 mg PO QAM [facility] Stop: 03/18/20 09:49 Last Admin: 02/18/20 07:41 Dose: 81 mg Documented by: Carbamide Peroxide (Carbamide Peroxide 6.5% 15 Ml Btl) 4 drops OT BID [facility] Stop: 02/21/20 09:59 Last Admin: 02/18/20 07:41 Dose: 4 drops Documented by: Dextrose (Dextrose 50% 50 Ml Syringe) 25 - 50 ml IV UD PRN; Protocol PRN Reason: Hypoglycemia Protocol Stop: 03/18/20 09:49 Gabapentin (Gabapentin 600 Mg Tab) 600 mg PO BID [facility] Stop: 03/18/20 09:49 Last Admin: 02/18/20 07:41 Dose: 600 mg Documented by: Glucagon (Glucagon For Inj 1 Mg Vial) 1 mg SQ UD PRN; Protocol PRN Reason: Hypoglycemia Protocol Stop: 03/18/20 09:49 Glucose (Glucose 10 Tabs/Tube) 4 - 8 tabs PO UD PRN; Protocol PRN Reason: Hypoglycemia Protocol Stop: 03/18/20 09:49 Glucose (Glucose 40% Gel 15 Gm Tube) 15 - 30 gm PO UD PRN; Protocol PRN Reason: Hypoglycemia Protocol Stop: 03/18/20 09:49 Heparin Sodium (Porcine) (Heparin Sod 5,000 Unit/0.5 Ml Vial) 5,000 units SQ Q8 [facility] Stop: 03/18/20 13:59 Last Admin: 02/18/20 05:40 Dose: 5,000 units Documented by: Insulin Aspart (Insulin Aspart 100 Units/Ml 3 Ml Pen) [address] [facility]; Protocol Stop: 03/18/20 11:29 Last Admin: 02/18/20 08:51 Dose: 1 units Documented by: Magnesium Hydroxide (Magnesium Hydroxide Susp 30 Ml Udc) 30 ml PO Q12H PRN PRN Reason: Constipation Stop: 03/18/20 09:49 Meclizine HCl (Meclizine Hcl 25 Mg Tab) 25 mg PO Q8H PRN PRN Reason: Dizziness or Vertigo Stop: 03/18/20 09:55 Miscellaneous (Carbohydrates For Hypoglycemia ) 15 - 30 gm PO UD PRN PRN Reason: Hypoglycemia Protocol Stop: 03/18/20 09:49 Last Admin: 02/18/20 07:40 Dose: 15 gm Documented by: Miscellaneous Information (Pharmacy Glycemic Mgmt Consult) 1 ea N/A UD PRN; Protocol PRN Reason: Consult Stop: 03/18/20 10:07 Ondansetron HCl (Ondansetron Inj 2 Mg/Ml 2 Ml Vial) 4 mg IV Q6H PRN PRN Reason: Nausea Stop: 03/18/20 09:49 Polyethylene Glycol (Polyethylene (Miralax) 17 Gm Pack) 17 gm PO DAILY PRN PRN Reason: Constipation Stop: 03/18/20 09:49 Simvastatin (Simvastatin 10 Mg Tab) 10 mg PO HS [place] Stop: 03/18/20 20:59 Last Admin: 02/17/20 20:39 Dose: 10 mg Documented by:
[2020-02-18] MEDS ORDERED: INSULIN GLARGINE SOLOSTAR 100 UNITS/ML 3 ML PEN SC ONE (12:00)
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
== END 2020-02-18 13:00 | disposition home or self-care (01) ==
LOC: 2N 05:31 → ED 05:31 → 2N 09:29

== ENCOUNTER 2020-07-05 10:55 | Inpatient (IN) ==
[2020-07-05 11:53] LABS: Basophils # (auto) 0.03 K/uL (0-0.2); Basophils % (auto) 0.5 %; Eosinophils # (auto) 0.05 K/uL (0-0.5); Eosinophils % (auto) 0.8 %; Hematocrit (blood only) 44.9 % (42-52); Hemoglobin 15.5 g/dL (14.0-18.0); Immature Granulocytes # (auto) 0.02 K/uL (0.00-0.02); Immature Granulocytes % (auto) 0.3 %; Lymphocytes # (auto) 1.11 K/uL (1.2-3.4); Lymphocytes % (auto) 17.8 %; Mean Corpuscular Hemoglobin 30.3 pg (25-34); Mean Corpuscular Hgb Conc 34.5 g/dL (32-36); Mean Corpuscular Volume 87.7 fL (80-100); Mean Platelet Volume 11.7 fL (7.4-10.4); Monocytes # (auto) 0.49 K/uL (0.11-0.59); Monocytes % (auto) 7.8 %; Neutrophils # (auto) 4.55 K/uL (1.4-6.5); Neutrophils % (auto) 72.8 %; Platelet Count 236 K/uL (130-400); RDW Coefficient of Variation 13.1 % (11.5-14.5); Red Blood Count 5.12 M/uL (4.7-6.1); White Blood Count 6.25 K/uL (4.8-10.8)
--- NOTE | 2020-07-05 12:05 | Emergency Department Note ---
History of Present Illness General Chief complaint: Illness Stated complaint: DIZZY,VOMITING,VISUAL DISTURBANCE,CAN'T WALK Time Seen by Provider: 07/05/20 11:17 Source: patient Mode of arrival: ambulatory Limitations: no limitations History of Present Illness This patient is a 64-year-old male who presents to the emergency department for evaluation of dizziness/balance problems. Patient states that his symptoms started 11 days ago. He states that anytime he stands up, he feels very off balance and falls down at times. He does okay while he is sitting or lying down. He has had 2 episodes where he became nauseous and vomited. He denies any head or neck pain. He reports that he feels "plugged up" around his ears. He denies chest pain, shortness of breath, abdominal pain, flulike symptoms or fevers. Patient denies any history of similar symptoms. Denies any trauma. He denies any numbness, weakness, slurred speech, confusion or vision problems. Home Medications Medication Instructions Recorded Confirmed Type amlodipine 5 mg PO [facility] 10/19/18 07/05/20 History aspirin [Aspirin Low Dose] 81 mg PO [facility] 10/19/18 07/05/20 History gabapentin 600 mg PO BID 10/19/18 07/05/20 History Lantus Solostar U-100 Insulin 35 unit SUBCUT [facility] 02/26/20 07/05/20 History insulin aspart U-100 [Novolog 8 unit SUBCUT 02/26/20 07/05/20 History Flexpen U-100 Insulin] Allergies Allergy/AdvReac Type Severity Reaction Status Date / Time levofloxacin Allergy Unknown "nervous" Verified 07/05/20 13:27 shrimp AdvReac Unknown NAUSEA Verified 07/05/20 13:27 Past Med/Surg History Medical History (Updated 07/05/20 @ 16:24 by Ree Rocha PA-C) CKD (chronic kidney disease) stage 3, GFR 30-59 ml/min Diabetic neuropathy Difficult airway for intubation Glidescope 2012 DM type 1 (diabetes mellitus, type 1) History of heart block Patient presented to [facility] 03/2013 for elective L foot I&D. On induction with propofol in OR pt went into 3rd degree HB. Pt intubated and given 1 dose of Epi, which resolved HB but diffuse ST depression remained. Surgery aborted, pt to PACU, where ST segments returned to baseline and pt was extubated. Ca rdio consulted, echo WNL, no etiology discovered for HB, ST depression felt 2/2 strain from Epi or apnea. No further testing or intervention recommended. History of osteomyelitis HLD (hyperlipidemia) HTN (hypertension) Hyperlipidemia Osteomyelitis of left foot history of Pulmonary nodule PVD (peripheral vascular disease) Vertigo history of--hypoglycemia Surgical History H/O eye surgery both eyes, corrective lens implant History of colonoscopy 8 years ago S/P amputation of lesser toe "right second and third toe" Family History Brother Diabetes Social History Smoking Status: Never smoker Second Hand Exposure: No; Hx Alcohol Use: Yes Alcohol type: beer Alcohol Intake Frequency: 2-4 x/Month Hx Substance Use: No Preferred Language: Bulgarian Communication Ability: Effective Drawing Operator Required: No Beliefs That Will Affect Care: None Current Living Situation: Family Current Living Situation Comment: Dad and Brother Feels Safe at Home: Yes Assistive Devices: None Review of Systems A total of 10 systems reviewed and were otherwise negative Physical Exam Vital Signs Vital Signs - 24 hr 07/05/20 11:05 07/05/20 11:43 07/05/20 12:01 Temperature 36.3 C L Temperature Source Temporal Artery Scan Pulse Rate - Lying 67 Pulse Rate - Sitting 73 Pulse Rate - Standing 78 Pulse Rate 76 68 Pulse Rate from SpO2 Sensor 68 Respiratory Rate 18 15 Respiratory Effort / Characteristics Non-Labored Spontaneous Respiratory Depth Normal Respiratory Pattern Regular Blood Pressure - Lying 157/78 H Blood Pressure - Sitting 146/75 H Blood Pressure- Standing 136/71 Blood Pressure 157/75 H 168/69 H Blood Pressure Mean 102 89 Pulse Oximetry 97 97 Oxygen Delivery Method Room Air Sepsis Recent Fever Within 48 Hours No Sepsis New/Unexplained Change in Mental Status No Sepsis Action Taken by Nursing No Action Required 07/05/20 12:30 07/05/20 13:00 07/05/20 14:44 Temperature Temperature Source Pulse Rate - Lying Pulse Rate - Sitting Pulse Rate - Standing Pulse Rate 67 68 75 Pulse Rate from SpO2 Sensor 66 67 56 L Respiratory Rate 17 16 14 Respiratory Effort / Characteristics Respiratory Depth Respiratory Pattern Blood Pressure - Lying Blood Pressure - Sitting Blood Pressure- Standing Blood Pressure 150/79 H 156/74 H 195/71 H Blood Pressure Mean 109 90 118 Pulse Oximetry 98 98 96 Oxygen Delivery Method Sepsis Recent Fever Within 48 Hours Sepsis New/Unexplained Change in Mental Status Sepsis Action Taken by Nursing 07/05/20 15:01 Temperature Temperature Source Pulse Rate - Lying Pulse Rate - Sitting Pulse Rate - Standing Pulse Rate 70 Pulse Rate from SpO2 Sensor 55 L Respiratory Rate 23 Respiratory Effort / Characteristics Respiratory Depth Respiratory Pattern Blood Pressure - Lying Blood Pressure - Sitting Blood Pressure- Standing Blood Pressure 161/71 H Blood Pressure Mean 96 Pulse Oximetry 98 Oxygen Delivery Method Sepsis Recent Fever Within 48 Hours Sepsis New/Unexplained Change in Mental Status Sepsis Action Taken by Nursing VITALS: Vitals are noted on the nurse's note and reviewed by myself. Vital signs stable. GENERAL: This is a 64-year-old male, in no acute distress, well-developed well- nourished. SKIN: The skin was without rashes. HEAD: Normocephalic atraumatic. EARS: External auditory canals clear, tympanic membranes pearly salas without erythema or effusion bilaterally. EYES: Pupils equal round and reactive to light and accommodation. Some difficulty tracking noted with extraocular movements. Lateral nystagmus with possible rotational component noted. MOUTH: Mucous membranes moist. Tonsils are not enlarged. Pharynx without erythema or exudate. NECK: Supple without nuchal rigidity. No lymphadenopathy. HEART: Regular rate and rhythm without murmurs gallops or rubs. LUNGS: Clear to auscultation bilaterally without wheezes, rales or rhonchi. No retractions or accessory muscle use. ABDOMEN: Positive bowel sounds x 4. Soft, nontender to palpation. MUSCULOSKELETAL: Full range of motion throughout. Strength 5/5 throughout. NEURO: Patient was alert and oriented to person place and time. Normal sensation throughout. Negative Romberg and pronator drift. Dysmetria noted with [id number] testing. Course Administered Medications Discontinued Medications Sodium Chloride (Nss 1000ml) 1,000 mls @ 999 mls/hr IV .Q1H1M ONE Stop: 07/05/20 15:23 Last Infusion: 07/05/20 16:07 Dose: 0 mls/hr Documented by: [id number] Admin: 07/05/20 14:44 Dose: 999 mls/hr Documented by: [id number] Meclizine HCl (Meclizine Hcl 25 Mg Tab) 25 mg PO NOW STA Stop: 07/05/20 14:24 Last Admin: 07/05/20 14:43 Dose: 25 mg Documented by: [id number] Medical Decision Making Differential Diagnosis Benign positional vertigo, dehydration, hypovolemia, anemia, tumor, infection, hypoglycemia, electrolyte abnormalities, cardiac sources, intracerebral event, toxicologic, neurologic, as well as other pathologies. Home Medications Current Medication List: was personally reviewed by me Laboratory Data Attestation: I reviewed the patient's lab results. Result diagrams: 07/05/20 11:42 07/05/20 11:42 Lab Results 07/05/20 07/05/20 07/05/20 Range/Units 11:42 11:42 11:42 WBC 6.25 (4.8-10.8) K/uL RBC 5.12 (4.7-6.1) M/uL Hgb 15.5 (14.0-18.0) g/dL Hct 44.9 (42-52) % MCV 87.7 (80-100) fL MCH 30.3 (25-34) pg MCHC 34.5 (32-36) g/dL RDW Std Deviation 42.0 (36.4-46.3) fL RDW Coeff of Дмитрий 13.1 (11.5-14.5) % Plt Count 236 (130-400) K/uL MPV 11.7 H (7.4-10.4) fL Immature Gran % (Auto) 0.3 % Neut % (Auto) 72.8 % Lymph % (Auto) 17.8 % Mcdowell % (Auto) 7.8 % Eos % (Auto) 0.8 % Baso % (Auto) 0.5 % Neut # (Auto) 4.55 (1.4-6.5) K/uL Lymph # (Auto) 1.11 L (1.2-3.4) K/uL Mcdowell # (Auto) 0.49 (0.11-0.59) K/uL Eos # (Auto) 0.05 (0-0.5) K/uL Baso # (Auto) 0.03 (0-0.2) K/uL Immature Gran # (Auto) 0.02 (0.00-0.02) K/uL PT 11.8 (9.0-12.0) Seconds INR 1.1 (0.9-1.1) APTT 27.1 (21.0-31.0) Seconds PTT Ratio 1.0 Sodium 139 (136-145) mmol/L Potassium 4.7 (3.5-5.1) mmol/L Chloride 108 H (98-107) mmol/L Carbon Dioxide 29 (21-32) mmol/L Anion Gap 2.0 L (3-11) BUN 28 H (7-18) mg/dl Creatinine 1.60 H (0.6-1.4) mg/dl Est Cr Clr Drug Dosing 49.4 ml/min Est GFR ( Amer) 52.7 Est GFR (Non-Af Amer) 45.5 BUN/Creatinine Ratio 17.4 (10-20) Glucose 298 H (70-99) mg/dl Calcium 9.0 (8.5-10.1) mg/dl Magnesium 2.3 (1.8-2.4) mg/dl Total Bilirubin 0.3 (0.2-1) mg/dl AST 8 L (15-37) U/L ALT 27 (12-78) U/L Alkaline Phosphatase 119 H (45-117) U/L Troponin I < 0.015 (0-0.045) ng/ml Total Protein 6.8 (6.4-8.2) gm/dl Albumin 3.5 (3.4-5.0) gm/dl Globulin 3.3 (2.5-4.0) gm/dl Albumin/Globulin Ratio 1.1 (0.9-2) Imaging Data Attestation: I personally reviewed and interpreted this imaging study as follows: Radiologist's Impression: MRI OF THE BRAIN WITHOUT IV CONTRAST FINDINGS: Brain parenchyma: There is age-related involutional change noting mild subcortical and periventricular microangiopathic disease. There is no hemorrhage or mass effect. There is no restricted diffusion to suggest acute ischemia. There are small chronic lacunar infarcts identified in the right cerebellar hemisphere, the right ender, and both thalami. Salas-white matter differentiation is preserved. No extra-axial fluid collection is seen. The cerebellar tonsils are normal in configuration. Ventricles, sulci, and cisterns: Prominent secondary to involutional change. Pituitary and sella: Unremarkable. Intracranial vasculature: Normal flow voids are maintained at the skull base. Orbits: The bony orbits are grossly intact. Orbital contents are normal in appearance noting bilateral ocular lens implants. Sinuses and mastoids: There is moderate mucosal thickening seen in the right maxillary antrum. Mild mucosal thickening seen in the left maxillary antrum. The remaining paranasal sinuses and the mastoid air cells are clear. There is fluid in the left middle ear. Calvarium: Unremarkable. Cervical cord: Partially visualized cervical spinal cord is normal in morphology and signal intensity. IMPRESSION: No acute intracranial abnormality. ECG Data Attestation: I personally reviewed and interpreted this ECG as follows: Indication: + other (dizziness) Rate (beats per minute): 66 Rhythm: + normal sinus ECG Intervals/blocks: + Normal QRS ECG ST segments: + Normal ST segments ECG Findings: + PACs Change: the following changes noted (PACs present) MDM Narrative The patient is a 64-year-old male who presents today complaining of dizziness which has been ongoing for about 10 days. Labs revealed no leukocytosis or anemia. Creatinine is 1.6 which appears to be about the patient's baseline. His glucose was elevated at 298 and patient was informed of this. He is a diabetic and does not seem to be very compliant about taking his blood sugars. He was given a liter of IV fluids here as well as meclizine for the dizziness. An MRI was performed and shows no abnormalities. Unfortunately patient had no improvement of his symptoms after receiving the meclizine and fluids. He was still very unsteady on his feet and did not feel comfortable going home as he was unable to walk. I do feel that the patient would be at risk for a fall if he returned home in this state. [facility] and agreed to evaluate the patient for further care. Impression & Plan Vertigo Discharge Plan Visit Data Chief Complaint: Illness Stated Complaint: DIZZY,VOMITING,VISUAL DISTURBANCE,CAN'T WALK ED Provider: Jonathan Lopez ED Midlevel Provider: Ree Rocha Discharge Problem: Vertigo Forms Stand Alone Forms: [facility] Prescriptions Prescriptions: No Action amlodipine 5 mg tablet 5 mg PO QAM RF: 0 aspirin [Aspirin Low Dose] 81 mg Tablet,Delayed Release (Dr/Ec) 81 mg PO QAM RF: 0 gabapentin 300 mg capsule 600 mg PO BID RF: 0 insulin aspart U-100 [Novolog Flexpen U-100 Insulin] 100 unit/mL (3 mL) insu javad pen 8 unit subcut HS RF: 0 Lantus Solostar U-100 Insulin 100 unit/mL (3 mL) insulin pen 35 unit SUBCUT QAM RF: 0
[2020-07-05 12:08] LABS: INR 1.1 (0.9-1.1); Partial Thromboplastin Time 27.1 Seconds (21.0-31.0); Prothrombin Time 11.8 Seconds (9.0-12.0)
[2020-07-05 12:17] LABS: Alanine Aminotransferase 27 U/L (12-78); Albumin Level 3.5 gm/dl (3.4-5.0); Aspartate Aminotransferase 8 U/L (15-37); BUN Creatinine Ratio 17.4 (10-20); Blood Urea Nitrogen 28 mg/dl (7-18); Carbon Dioxide 29 mmol/L (21-32); Chloride 108 mmol/L (98-107); Creatinine Clr Calc Pharmacy 49.4 ml/min; Est GFR (African American) 52.7; Est GFR (Non-African American) 45.5; Glucose 298 mg/dl (70-99); Magnesium 2.3 mg/dl (1.8-2.4); Potassium 4.7 mmol/L (3.5-5.1); Sodium 139 mmol/L (136-145)
[2020-07-05 12:22] LABS: Albumin Globulin Ratio 1.1 (0.9-2); Alkaline Phosphatase 119 U/L (45-117); Bilirubin,Total 0.3 mg/dl (0.2-1); Globulin 3.3 gm/dl (2.5-4.0); Total Protein 6.8 gm/dl (6.4-8.2); Troponin I < 0.015 ng/ml (0-0.045)
--- NOTE | 2020-07-05 12:55 | Electrocardiogram Report ---
Test Reason : Blood Pressure : / mmHG Vent. Rate : 066 BPM Atrial Rate : 066 BPM P-R Int : 166 ms QRS Dur : 082 ms QT Int : 410 ms P-R-T Axes : 061 012 088 degrees QTc Int : 429 ms Sinus rhythm with Premature atrial complexes Otherwise normal ECG When compared with ECG of 17-FEB-2020 05:44, Premature atrial complexes are now Present Confirmed by Kushal Mejia ([id number]) on 07/05/2020 12:55:47 PM Referred By: REFERRED SELF Confirmed By:Kushal Mejia
--- NOTE | 2020-07-05 14:16 | Magnetic Resonance Report ---
MRI OF THE BRAIN WITHOUT IV CONTRAST CLINICAL HISTORY: Dizziness. Vomiting. COMPARISON STUDY: CT and MRI of the brain dated 02/17/2020. TECHNIQUE: MRI of the brain was performed utilizing various T1 and T2-weighted sequences in the axial , sagittal, and coronal planes. IV contrast was not administered for this examination. FINDINGS: Brain parenchyma: There is age-related involutional change noting mild subcortical and periventricula r microangiopathic disease. There is no hemorrhage or mass effect. There is no restricted diffusion t o suggest acute ischemia. There are small chronic lacunar infarcts identified in the right cerebellar hemisphere, the right ender, and both thalami. Salas-white matter differentiation is preserved. No ext ra-axial fluid collection is seen. The cerebellar tonsils are normal in configuration. Ventricles, sulci, and cisterns: Prominent secondary to involutional change. Pituitary and sella: Unremarkable. Intracranial vasculature: Normal flow voids are maintained at the skull base. Orbits: The bony orbits are grossly intact. Orbital contents are normal in appearance noting bilatera l ocular lens implants. Sinuses and mastoids: There is moderate mucosal thickening seen in the right maxillary antrum. Mild m ucosal thickening seen in the left maxillary antrum. The remaining paranasal sinuses and the mastoid air cells are clear. There is fluid in the left middle ear. Calvarium: Unremarkable. Cervical cord: Partially visualized cervical spinal cord is normal in morphology and signal intensity . IMPRESSION: No acute intracranial abnormality. ACT 112: Negative or not required by law. Electronically signed by: Jonathan Merrill M.D. 07/05/2020 2:15 PM
[2020-07-05] MEDS ORDERED: SODIUM CHLORIDE 0.9% 1000ML 1,000 ML IV ONE (14:23)
[2020-07-05] MEDS ORDERED: MECLIZINE HCL 25 MG TAB PO STA (14:23)
--- NOTE | 2020-07-05 17:19 | History & Physical Report ---
Date of Service July 05, 2020 Assessment & Plan (1) Orthostatic dizziness: (2) Dizziness: This is a 64-year-old male who has significant past medical history of type 1 diabetes mellitus since age 20, diabetic neuropathy, diabetic nephropathy with CKD stage III, diabetic retinopathy, HTN, HLD, PVD who presents to ED secondary to dizziness x 11 days. Pt history not clinically significant for vertigo or vestibular dysfunction. MRI brain no acute CVA but multiple R cerebellar lacunar infarcts, R ender and both thalami. Prior CTA head/neck from 01/2020 reveal moderate multifocal stenoses within the intracranial vessels, most pronounced in posterior circulation, left vertebral artery significant stenosis. Patient with poorly controlled T1DM and PVD with patient at great risk for cerebral vascular event. Orthostatics positive in ED admit to med tele gentle IVF x 1 additional L consult neurology - appreciate their input to determine if this possible related to poor posterior circulation continue ASA 81mg daily, add high intensity statin 40mg daily PT/OT -britta to r/o bppv but feel like unlikely orthostatics meclizine prn for dizziness (3) DM type 1 (diabetes mellitus, type 1): uncontrolled, last a1c 8.3 03/31/2020 obtain a1c in a.m. lantus/novolog per protocol consult glycemic pharmacist - appreciate their input (4) HTN (hypertension): BP elevated, on amlodipine will d/c amlodipine and place on losartan 25mg daily pt with CKD 3 likely 2/2 to diabetic nephropathy should be on PRESTON/ARB for renal protection (5) CKD (chronic kidney disease) stage 3, GFR 30-59 ml/min: baseline renal fxn 1.6 bun/cr 28/1.60 given dx of T1DM and CKD -3 pt would benefit from nephrology consult and follow as outpt start losartan 25mg daily as above (6) PVD (peripheral vascular disease): on ASA resume statin - atorvastatin 40mg daily given atherosclerosis of intracranial vessels (7) DVT prophylaxis: SQ Lovenox Disposition: admit to med tele Follow up: PCP Dr. Robles upon discharge Pt was seen and examined in collaboration with Dr. Avendano, please see addendum History of Present Illness Chief Complaint: Dizziness x 11 days. Primary Care Provider: Bravo Robles MD This is a 64-year-old male has significant past medical history of type 1 diabetes mellitus since age 20, diabetic neuropathy, diabetic nephropathy with CKD stage III, diabetic retinopathy, HTN, HLD, PVD who presents to ED secondary to dizziness x 11 days. Symptoms have been present ever since Reform. He states anytime he gets up to walk he becomes very lightheaded and dizzy. Feels like he could pass out. He is having difficulty ambulating and feels very off balance. He denies any falls but has been walking with a walker. He denies any sensation of, "spinning." Quick head movements or quick position change does not exacerbate symptoms. For the past 11 days he has had 2 episodes of nausea and vomiting that occurred with lightheadedness. Even after standing for period time symptoms do not resolve. He denies any recent illness, fever, chills, sweats, syncope, chest pain, shortness of breath, cough, URI symptoms, p alpitations, abdominal pain, dysuria, increased urinary frequency with urination, diarrhea. His last BM was 2 days ago. He states he is been having difficulty urinating because when he stands he gets dizzy. No recent illness or sick contacts. Of significance patient was hospitalized 01/2020 secondary to dizziness. Symptoms were felt to be secondary to hypoglycemia although he did undergo a tho rough neurologic work-up. At that time MRI was negative for acute CVA but head and neck CTA did reveal significant atherosclerotic disease intracranial vessels. He was placed on ASA and statin. He has since discontinued statin due to, "makes me feel funny." He has been compliant with statin. He is a poorly controlled type I diabetic. His last A1c was 8.3 on 03/31/2020. He does not monitor blood sugars on a regular basis. In ED he remained hemodynamically stable. Orthostatic vital signs were obtained which were positive. Blood pressures were lying 157/70, sitting 136/75, standing 136/71. Heart rates were 67, 73 and 70 respectively. ED staff unable to ambulate patient secondary to dizziness. Allergies Allergy/AdvReac Type Severity Reaction Status Date / Time levofloxacin Allergy Unknown "nervous" Verified 07/05/20 13:27 shrimp AdvReac Unknown NAUSEA Verified 07/05/20 13:27 Home Medications Medication Instructions Recorded Confirmed Type amlodipine 5 mg PO QAM 10/19/18 07/05/20 History aspirin [Aspirin Low Dose] 81 mg PO QAM 10/19/18 07/05/20 History gabapentin 600 mg PO BID 10/19/18 07/05/20 History Lantus Solostar U-100 Insulin 35 unit SUBCUT QAM 02/26/20 07/05/20 History insulin aspart U-100 [Novolog 8 unit SUBCUT HS 02/26/20 07/05/20 History Flexpen U-100 Insulin] Past Med/Surg History Medical History (Updated 07/05/20 @ 18:04 by Ivana Angel PA-C) CKD (chronic kidney disease) stage 3, GFR 30-59 ml/min Diabetic neuropathy Difficult airway for intubation Glidescope 2012 DM type 1 (diabetes mellitus, type 1) History of heart block Patient presented to [facility] 03/2013 for elective L foot I&D. On induction with propofol in OR pt went into 3rd degree HB. Pt intubated and given 1 dose of Epi, which resolved HB but diffuse ST depression remained. Surgery aborted, pt to PACU, where ST segments returned to baseline and pt was extubated. Cardio consulted, echo WNL, no etiology discovered for HB, ST depression felt 2/2 strain from Epi or apnea. No further testing or intervention recommended. History of osteomyelitis HLD (hyperlipidemia) HTN (hypertension) Hyperlipidemia Osteomyelitis of left foot history of Pulmonary nodule PVD (peripheral vascular disease) Vertigo history of--hypoglycemia Surgical History H/O eye surgery both eyes, corrective lens implant History of colonoscopy 8 years ago S/P amputation of lesser toe "right second and third toe" Family History Brother Diabetes Social History Smoking Status: Never smoker Second Hand Exposure: No; Hx Alcohol Use: Yes Alcohol type: beer Alcohol Intake Frequency: 2-4 x/Month Hx Substance Use: No Preferred Language: Icelandic Communication Ability: Effective Revenue Analyst Required: No Beliefs That Will Affect Care: None Current Living Situation: Family Current Living Situation Comment: Dad and Brother Feels Safe at Home: Yes Assistive Devices: None Review of Systems Review of Systems: All systems reviewed & are unremarkable except as noted in HPI & below Physical Exam Physical Exam: Constitutional: WD/WN, M, vitals as above, NAD, sitting up in bed, pleasant, conversing easily Head: Normocephalic, Atraumatic Eyes: PERRL, conjunctivae normal, anicteric sclerae ENMT: external ear and nose normal, external auditory canal clear of cerumen, TMs white with normal anatomic landmarks, oropharynx normal Neck: trachea midline, no thyromegaly normal visual inspection Respiratory: normal respiratory effort, lungs clear to auscultation, no wheeze, rales, rhonchi. Normal insp/exp effort, no accessory muscle use Cardiovascular: RRR, no murmur, no edema Vessels: no JVD or carotid bruit Chest: normal inspection of chest Abdomen: normal bowel sounds, soft, nontender, no hepatosplenomegaly Musculoskeletal: no cyanosis or clubbing, extremities motor strength 5/5 Skin: no rashes, warm and dry normal turgor Neurologic: PERRL, EOMI, accommodation nl, no face palsy, no dysarthria CN's II-XI intact bilaterally and moves all extremities, symptoms not exacerbated with quick head movements, or position change Psychiatric: A+Ox3, euthymic affect Lymphatic: no cervical or axillary lymphadenopathy : deferred Results & Data Results & Data ([facility]) Vital Signs (Past 12 Hours) Vital Signs Temp Pulse Resp BP Pulse Ox 07/05/20 17:00 87 14 161/76 H 97 07/05/20 16:30 69 13 172/95 H 07/05/20 16:00 12 171/83 H 07/05/20 15:34 77 15 186/84 H 99 07/05/20 15:01 70 23 161/71 H 98 07/05/20 14:44 75 14 195/71 H 96 07/05/20 13:00 68 16 156/74 H 98 07/05/20 12:30 67 17 150/79 H 98 07/05/20 12:01 68 15 168/69 H 97 07/05/20 11:05 36.3 C L 76 18 157/75 H 97 Diagnostic Findings MRI Brain: FINDINGS: Brain parenchyma: There is age-related involutional change noting mild subcortical and periventricular microangiopathic disease. There is no hemorrhage or mass effect. There is no restricted diffusion to suggest acute ischemia. There are small chronic lacunar infarcts identified in the right cerebellar hemisphere, the right ender, and both thalami. Salas-white matter differentiation is preserved. No extra-axial fluid collection is seen. The cerebellar tonsils are normal in configuration. Ventricles, sulci, and cisterns: Prominent secondary to involutional change. Pituitary and sella: Unremarkable. Intracranial vasculature: Normal flow voids are maintained at the skull base. Orbits: The bony orbits are grossly intact. Orbital contents are normal in appearance noting bilateral ocular lens implants. Sinuses and mastoids: There is moderate mucosal thickening seen in the right maxillary antrum. Mild mucosal thickening seen in the left maxillary antrum. The remaining paranasal sinuses and the mastoid air cells are clear. There is fluid in the left middle ear. Calvarium: Unremarkable. Cervical cord: Partially visualized cervical spinal cord is normal in morphology and signal intensity. IMPRESSION: No acute intracranial abnormality. Medications Administered Discontinued Medications Sodium Chloride (Nss 1000ml) 1,000 mls @ 999 mls/hr IV .Q1H1M ONE Stop: 07/05/20 15:23 Last Infusion: 07/05/20 16:07 Dose: 0 mls/hr Documented by: [id number] Admin: 07/05/20 14:44 Dose: 999 mls/hr Documented by: [id number] Meclizine HCl (Meclizine Hcl 25 Mg Tab) 25 mg PO NOW STA Stop: 07/05/20 14:24 Last Admin: 07/05/20 14:43 Dose: 25 mg Documented by: [id number] ECG Rate (beats per minute): 66 Rhythm: normal sinus Findings: + mobitz I block COVID-19 Results Results COVID-19 Lab Results: RBC 5.12 M/uL (4.7-6.1) 07/05/20 WBC 6.25 K/uL (4.8-10.8) 07/05/20 Hgb 15.5 g/dL (14.0-18.0) 07/05/20 Hct 44.9 % (42-52) 07/05/20 Plt Count 236 K/uL (130-400) 07/05/20 Neutrophils (%) (Auto) 72.8 % 07/05/20 Lymphocytes (%) (Auto) 17.8 % 07/05/20 Monocytes # (Auto) 0.49 K/uL (0.11-0.59) 07/05/20 Eosinophils # (Auto) 0.05 K/uL (0-0.5) 07/05/20 Immature Granulocyte % (Auto) 0.3 % 07/05/20 Neutrophils # (Auto) 4.55 K/uL (1.4-6.5) 07/05/20 Lymphocytes # (Auto) 1.11 K/uL (1.2-3.4) L 07/05/20 Monocytes # (Auto) 0.49 K/uL (0.11-0.59) 07/05/20 Eosinophils # (Auto) 0.05 K/uL (0-0.5) 07/05/20 Basophils # (Auto) 0.03 K/uL (0-0.2) 07/05/20 Immature Granulocyte # (Auto) 0.02 K/uL (0.00-0.02) 07/05/20 Na 139 mmol/L (136-145) 07/05/20 K 4.7 mmol/L (3.5-5.1) 07/05/20 Cl 108 mmol/L (98-107) H 07/05/20 CO2 29 mmol/L (21-32) 07/05/20 Anion Gap 2.0 (3-11) L 07/05/20 BUN 28 mg/dl (7-18) H 07/05/20 Creatinine 1.60 mg/dl (0.6-1.4) H 07/05/20 BUN/Creatinine Ratio 17.4 (10-20) 07/05/20 Glucose Level 298 mg/dl (70-99) H 07/05/20 Ca 9.0 mg/dl (8.5-10.1) 07/05/20 Total Bilirubin 0.3 mg/dl (0.2-1) 07/05/20 AST/SGOT 8 U/L (15-37) L 07/05/20 ALT/SGPT 27 U/L (12-78) 07/05/20 Alkaline Phosphatase 119 U/L (45-117) H 07/05/20 Total Protein 6.8 gm/dl (6.4-8.2) 07/05/20 Albumin 3.5 gm/dl (3.4-5.0) 07/05/20 Globulin 3.3 gm/dl (2.5-4.0) 07/05/20 Albumin/Globulin Ratio 1.1 (0.9-2) 07/05/20 Troponin I < 0.015 ng/ml (0-0.045) 07/05/20 PTT 27.1 Seconds (21.0-31.0) 07/05/20 INR 1.1 (0.9-1.1) 07/05/20 SARS-CoV-2 Ag (Rapid) Negative (Negative) 07/05/20 Code Status & VTE Plan Code Status Full Code VTE Prophylaxis Plan VTE Prophylaxis will be ordered: Yes Supervising Physician Co-Signing Physician Notes Patient is a 64-year-old male with history of diabetes mellitus, CKD stage III, peripheral vascular disease and other medical problems presents with history of gradually worsening dizziness since the last 10 to 11 days. Patient admits to have ambulatory dysfunction, falls secondary to significant dizziness. He was also admitted previously for dizziness which was attributed possibly secondary to hypoglycemia at the time. Please review HPI for complete details of presenta tion. MRI brain showed no acute intracranial abnormality but showed findings suggestive of mild subcortical and periventricular microangiopathic disease. Also showed small chronic lacunar infarcts in the right cerebellar hemisphere, right ender, both thalami.. Prior head CTA, neck CTA showed findings suggestive of moderate multifocal stenosis within the intracranial vessels. Orthostatics were positive in ED. On exam patient is moderately built and nourished, no apparent distress, normocephalic atraumatic, neck EOMI, lungs are clear to auscultation, normal breath sounds, S1-S2, no murmur, abdomen soft, nontender, no pedal edema, grossly no focal neurological deficits. Patient is admitted for management of worsening dizziness. Likely multifactorial given positive orthostatics, peripheral vascular disease, prior infarcts. Amlodipine could be contributing as well. Discontinue amlodipine, agree with changing to losartan for blood pressure control given history of diabetes. Will give gentle IV fluids and reassess orthostatics. Neurology consulted for input. Continue aspirin, statin. PT OT requested. Fall precautions. May need neurosurgical evaluation. I personally reviewed the record. Patient is interviewed and examined at bedside. Patient's care is coordinated with Ivana Angel PA-C. Please refer to the documentation above for details of patient's presentation and for discussion of other issues.
[2020-07-05 17:44] LABS: Appearance Urine Clear (Clear); Bacteria Urine Automated Negative (Negative); Bilirubin Urine Negative (Negative); Blood Urine Negative (Negative); Color Urine Yellow; Epithelial Cell Urine Auto 0-5 /lpf (0-5); Glucose Urine UA 1+ (Negative); Ketones Urine Negative (Negative); Leukocyte Esterase Urine Negative (Negative); Nitrite Urine Negative (Negative); Protein Urine 1+ (Negative); RBC Urine Automated 0-4 /hpf (0-4); Specific Gravity Urine 1.016 (1.000-1.030); Urobilinogen Urine Negative (Negative)
[2020-07-05] MEDS ORDERED: CARBOHYDRATES FOR HYPOGLYCEMIA PO PRN (20:06)
[2020-07-05] MEDS ORDERED: DEXTROSE 50% 50 ML SYRINGE IV PRN (20:06)
[2020-07-05] MEDS ORDERED: ALUMINUM/MAGNESIUM SUSP 30 ML UDC PO PRN (20:06)
[2020-07-05] MEDS ORDERED: SODIUM CHLORIDE 0.9% 1000ML 1,000 ML IV SCH (20:06)
[2020-07-05] MEDS ORDERED: POLYETHYLENE (MIRALAX) 17 GM PACK PO PRN (20:06)
[2020-07-05] MEDS ORDERED: ACETAMINOPHEN 325 MG TAB PO PRN (20:06)
[2020-07-05] MEDS ORDERED: MAGNESIUM HYDROXIDE SUSP 30 ML UDC PO PRN (20:06)
[2020-07-05] MEDS ORDERED: GLUCOSE 40% GEL 15 GM TUBE PO PRN (20:06)
[2020-07-05] MEDS ORDERED: ONDANSETRON INJ 2 MG/ML 2 ML VIAL IV PRN (20:06)
[2020-07-05] MEDS ORDERED: GLUCOSE 10 TABS/TUBE PO PRN (20:06)
[2020-07-05] MEDS ORDERED: GLUCAGON FOR INJ 1 MG VIAL SQ PRN (20:06)
[2020-07-05] MEDS ORDERED: PHARMACY GLYCEMIC MGMT CONSULT PRN (20:19)
[2020-07-05] MEDS: ATORVASTATIN 40 MG TAB PO SCH (20:55)
[2020-07-05] MEDS: INSULIN ASPART 100 UNITS/ML 3 ML PEN SC SCH (21:32)
[2020-07-05] MEDS: ENOXAPARIN INJ 40 MG/0.4 ML SYR SQ SCH (21:33)
[2020-07-05] MEDS: GABAPENTIN 300 MG CAP PO SCH (21:33)
[2020-07-05] MEDS: MECLIZINE HCL 25 MG TAB PO PRN (21:34)
[2020-07-06 07:36] LABS: Basophils # (auto) 0.03 K/uL (0-0.2); Basophils % (auto) 0.4 %; Eosinophils # (auto) 0.04 K/uL (0-0.5); Eosinophils % (auto) 0.6 %; Hemoglobin 14.6 g/dL (14.0-18.0); Immature Granulocytes # (auto) 0.02 K/uL (0.00-0.02); Immature Granulocytes % (auto) 0.3 %; Lymphocytes # (auto) 1.55 K/uL (1.2-3.4); Lymphocytes % (auto) 22.3 %; Mean Corpuscular Hemoglobin 29.7 pg (25-34); Mean Corpuscular Volume 87.4 fL (80-100); Monocytes # (auto) 0.56 K/uL (0.11-0.59); Monocytes % (auto) 8.1 %; Neutrophils # (auto) 4.75 K/uL (1.4-6.5); Neutrophils % (auto) 68.3 %; Platelet Count 197 K/uL (130-400); RDW Coefficient of Variation 13.1 % (11.5-14.5); Red Blood Count 4.92 M/uL (4.7-6.1); White Blood Count 6.95 K/uL (4.8-10.8)
[2020-07-06 07:56] LABS: Estimated Average Glucose 189 mg/dl; Hemoglobin A1C 8.2 % (4.5-5.6)
[2020-07-06 08:28] LABS: Albumin Level 3.1 gm/dl (3.4-5.0); BUN Creatinine Ratio 17.6 (10-20); Bilirubin,Total 0.6 mg/dl (0.2-1); Calcium 8.7 mg/dl (8.5-10.1); Creatinine Clr Calc Pharmacy 68.6 ml/min; Est GFR (African American) 75.4; Est GFR (Non-African American) 65.1; Globulin 3.1 gm/dl (2.5-4.0); Magnesium 1.9 mg/dl (1.8-2.4); Potassium 3.7 mmol/L (3.5-5.1); Total Protein 6.2 gm/dl (6.4-8.2)
[2020-07-06] MEDS: ASPIRIN 81 MG ECTAB PO SCH (08:59)
[2020-07-06] MEDS: GABAPENTIN 300 MG CAP PO SCH ×2 (09:00→20:53)
[2020-07-06] MEDS ORDERED: INSULIN GLARGINE SOLOSTAR 100 UNITS/ML 3 ML PEN SC SCH (09:00)
[2020-07-06] MEDS: LOSARTAN POTASSIUM 25 MG TAB PO SCH (09:00)
[2020-07-06] MEDS: MECLIZINE HCL 25 MG TAB PO PRN (09:02)
[2020-07-06] MEDS: INSULIN ASPART 100 UNITS/ML 3 ML PEN SC SCH ×4 (09:03→21:42)
--- NOTE | 2020-07-06 11:09 | Pharmacy Report ---
Glycemic Control Consultation - Date of Service July 06, 2020 - Scope Scope: Glycemic Pharmacist consulted for glycemic control and to write orders per [facility] inpatient glycemic control protocol. - Objective Weight: 77.2 kg Accuchecks BSG (last 24hrs): 07/05/20 07/05/20 07/05/20 11:42 17:10 19:58 Glucose 298 H POC Glucose 134 H 84 07/06/20 07/06/20 07:24 07:47 Glucose 53 L* POC Glucose 96 Laboratory Data (last 24hrs): 07/05/20 07/06/20 11:42 07:24 Potassium 4.7 3.7 D Carbon Dioxide 29 27 Anion Gap 2.0 L 4.0 Creatinine 1.60 H 1.19 D Est Cr Clr Drug Dosing 49.4 68.6 HbA1c: Hemoglobin A1c 8.2 % (4.5-5.6) H 07/06/20 07:24 - Recent Pertinent Medications Outpatient Anti-diabetic Regimen: * Lantus 35 units qAM + Novolog 8 units HS * A1c = 8.3 % 03/31/20 The patient is currently receiving: * Basal insulin: Lantus 35 units SQ 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 Patient's home regimen is primarily basal. * Patient's BSG this morning was 53 mg/dL on PRP and 96 mg/dL on Accucheck. * Provide a reduced dose this morning (about 80% of home regimen). Scale tomorrow morning based upon blood sugars. * For Novolog, weight-based stress of 2. Higher goal range since at home patient's regimen very basal heavy. Loosen parameters if BSGs trend downwards today. PLAN FOR INPATIENT GLYCEMIC CONTROL: * Basal insulin * Lantus 28-32 units SQ daily * Bolus insulin * NovoLog per scale ACHS or Q6hrs while NPO * Goal Range: Low 120 mg/dL - High 160 mg/dL * Correction Factor: 30 mg/dL/unit * Nutritional / Prandial insulin per carb ratio of 1 unit per 10 grams CHO consumed * Please note that the plan above was derived based on current level of insulin resistance and hospital stress. These recommendations are appropriate for inpatient admission only. Plan of care upon discharge will need to be reassessed to avoid potential outpatient hypo/hyperglycemia. Thank you.
--- NOTE | 2020-07-06 13:09 | Hospitalist Progress Note ---
Date of Service July 06, 2020 Assessment & Plan (1) Orthostatic dizziness: (2) Dizziness: This is a 64-year-old male who has significant past medical history of type 1 diabetes mellitus since age 20, diabetic neuropathy, diabetic nephropathy with CKD stage III, diabetic retinopathy, HTN, HLD, PVD who presents to ED secondary to dizziness x 11 days. Pt history not clinically significant for vertigo or vestibular dysfunction. MRI brain no acute CVA but multiple R cerebellar lacunar infarcts, R ender and both thalami. Prior CTA head/neck from 01/2020 reveal moderate multifocal stenoses within the intracranial vessels, most pronounced in posterior circulation, left vertebral artery significant stenosis. Patient with poorly controlled T1DM and PVD with patient at great risk for cerebral vascular event. Orthostatics positive in ED He's OK when in bed, but when he gats up he almost falls and gets dizzy med tele/Change to inpatient gentle IVF x 1 additional L consult neurology - appreciate their input to determine if this possible related to poor posterior circulation continue ASA 81mg daily, add high intensity statin 40mg daily PT/OT -britta to r/o bppv but feel like unlikely orthostatics meclizine prn for dizziness add ativan Pj Hernandez (3) DM type 1 (diabetes mellitus, type 1): uncontrolled, last a1c 8.3 03/31/2020 obtain a1c in a.m. lantus/novolog per protocol consult glycemic pharmacist - appreciate their input (4) HTN (hypertension): BP elevated, on amlodipine Add amlodipine back and continue losartan 25mg daily pt with CKD 3 likely 2/2 to diabetic nephropathy should be on PRESTON/ARB for renal protection (5) CKD (chronic kidney disease) stage 3, GFR 30-59 ml/min: baseline renal fxn 1.6 bun/cr 28/1.60 given dx of T1DM and CKD -3 pt would benefit from nephrology consult and follow as outpt On losartan 25mg daily (6) PVD (peripheral vascular disease): on ASA resume statin - atorvastatin 40mg daily given atherosclerosis of intracranial vessels (7) DVT prophylaxis: SQ Lovenox Disposition: med tele Follow up: PCP Dr. Rolbes upon discharge Labs checked, await Neuro input, add Ativan ROS-No Headache, No Visual Changes, No Nausea, No Vomiting, No Fever, No Chills, No Neck Pain or Stiffness, No Chest Pain, No Palpitations, No SOB, No MARIE, No Cough, No Sputum, No Wheezing, No Abdominal Pain, No Diarrhea, No Hematemesis, No Hemoptysis, No Unexpected Weight Loss, No Flank pain, No Melena, No Hematochezia, No Frequency, No Urgency, No Burning, No Hematuria, No Rashes, No Diaphoresis. Appetite is Normal, Still very dizzy when he gets OOB Physical Exam Gen-AAO x 3, NAD, Afebrile Head-NCAT, EOMI, PERRLA, Anicteric Sclera, No Posterior Pharyngeal Erythema Neck-Supple, No JVD, No Thyromegaly, No Masses, No LAD, No Bruits Lungs-Clear to Auscultation Bilaterally, No Rales, No Rhonchi, No Wheezing, No Crepitus Chest-No S4, +S1, +S2, No S3, No Murmurs, No Rubs, No Gallops, No Ectopy Abdomen-Soft, Bowel Sounds Present, Non Tender, Non Distended, No Hepatomegaly, No Splenomegaly, No Palpable Masses, No Rebound, No Rigidity, No Guarding Musculoskeletal-Full Range of Motion Bilaterally, No CVAT Extremities-No Cyanosis, No Clubbing, No Edema Nuero-Cranial Nerves II-XII grossly intact, Motor WNL, DTRs WNL, Strength WNL, Non Focal Psych-Normal Mood Admission and Anticipated Discharge Date Admission Date: July 05, 2020 Results & Data Results & Data ([facility]) Vital Signs (Past 12 Hours) Vital Signs Temp Pulse Pulse Resp BP Pulse Ox 07/06/20 12:01 36.4 C L 73 18 179/85 H 07/06/20 07:39 66 07/06/20 07:30 36.8 C 68 18 159/84 H 97 07/06/20 02:39 36.6 C 78 18 147/50 H 96
[2020-07-06] MEDS ORDERED: LORazepam 0.5 MG TAB PO PRN (13:12)
[2020-07-06] MEDS: amLODIPine BESYLATE 5 MG TAB PO SCH (13:30)
--- NOTE | 2020-07-06 14:58 | Neurology Consultation ---
Date of Consultation July 06, 2020 Assessment & Plan (1) Orthostatic dizziness: 1. MRI with no stroke 2. CTA head with moderate stenosis in posterior circulation 3. continue aspirin 81 mg daily 4. orthostatic blood pressures lying 167/75 sitting 159/76 standing 130/82 5. PT for walking blood pressures and evaluation of gait. 6. would repeat blood pressure q shift for further evaluation 7. optimize DM, LDL <70 (2) DM type 1 (diabetes mellitus, type 1): 1. optimize control - DM education watch for hypoglycemia Present on Admission?: Yes (3) Diabetic neuropathy: 1. severe diabetic neuropathy- contributing to the balance issues 2. B12, folate, RPR-ordered Present on Admission?: Yes Supervising Physician Co-Signing Physician Notes I have seen and discussed above patient with Dr Kalee Domingo, neurology. PT seen and examined. subacute imabalnce but with complaints of same in Jan, times no acute stroke noted, but severe stenosis of the orgin of the left vert and moderate basilar stenosis in Jan 2020. Pt co instability with walking, also with sitting up without vertigo, diplopia. He denies change in speech, swallow, famh of similar imbalance. Wt stable, no hx of cancer or excessive ETOH use. Pt denies otologic sx. He has constipation,no abnl sweating or ealry satiety, On exam no nystagmus, nml EOM, no facial asymm. no increase in jaw jerk. speech perhaps mildly dysarthric mild dystaxia on FNF and HS, distal sensory loss to upper calf noted by Scott. BP drops 30 point with standing. gait mild wide based, unsteady, no unil. did not attempt tandem. rhomberg positive, Impression: gait instability suspect polyfactorial but in part related to orthostasis, neuropathy. cant exclude that pt hypoperfuses posterior circ preferentially with orthostasis, although hx sx do not overtly suggest that. Pt has some cerebellar findings on exam likely from small vessel vascular diease (R cerebellum, R ender) Check othostatics, minimize meds that could contribute. Increase fluid, salt, arise slowing, thigh high teds. An underlying degenerative process could be present, but there seems to be enough explanation without invoking that. Pt will need to see us in follow-up to monitor course. SIDRA Domingo MD History of Present Illness Reason for Consultation: intractable vertigo, intracranial vessels stenosis Requesting Physician: Miki Morgan DO Attending Physician: Miki Morgan DO History of Present Illness Miki is a 64 year old male with a PMH- DM1 since age 20, diabetic neuropathy, diabetic nephropathy with CKD stage III, diabetic retinopathy, HTN, HLD, PVD who presented with dizziness x 11 days. He states anytime he gets up to walk he becomes very lightheaded and dizzy and a feeling of passing out. He is having difficulty ambulating and feels very off balance. He had a fall at home with no head trauma and has been using a walker. For the past 11 days he has had 2 episodes of nausea and vomiting that occurred with lightheadedness. When he stands too long he feels like he is going to pass out. He had a head cold. He was also hospitalized 01/2020 secondary to dizziness. Symptoms were felt to be secondary to hypoglycemia although he did undergo a thorough neurologic work-up. An MRI at that time was negative for acute CVA but head and neck CTA did reveal significant atherosclerotic disease intracranial vessels. He was placed on ASA and statin but stopped the statin because it makes me feel "funny." denies symptoms with rolling in bed, head movement, sitting, CP SOB, abdominal pain, N, V. Allergies Allergy/AdvReac Type Severity Reaction Status Date / Time levofloxacin Allergy Unknown "nervous" Verified 07/05/20 13:27 shrimp AdvReac Unknown NAUSEA Verified 07/05/20 13:27 Home Medications Medication Instructions Recorded Confirmed Type amlodipine 5 mg PO QA 10/19/18 07/05/20 History aspirin [Aspirin Low Dose] 81 mg PO QAM 10/19/18 07/05/20 History gabapentin 600 mg PO BID 10/19/18 07/05/20 History Lantus Solostar U-100 Insulin 35 unit SUBCUT QAM 02/26/20 07/05/20 History insulin aspart U-100 [Novolog 8 unit SUBCUT 02/26/20 07/05/20 History Flexpen U-100 Insulin] Patient History Medical History (Updated 07/05/20 @ 18:04 by Ivana Angel PA-C) CKD (chronic kidney disease) stage 3, GFR 30-59 ml/min Diabetic neuropathy Difficult airway for intubation Glidescope 2012 DM type 1 (diabetes mellitus, type 1) History of heart block Patient presented to [facility] 03/2013 for elective L foot I&D. On induction with propofol in OR pt went into 3rd degree HB. Pt intubated and given 1 dose of Epi, which resolved HB but diffuse ST depression remained. Surgery aborted, pt to PACU, where ST segments returned to baseline and pt was extubated. Cardio consulted, echo WNL, no etiology discovered for HB, ST depression felt 2/2 strain from Epi or apnea. No further testing or intervention recommended. History of osteomyelitis HLD (hyperlipidemia) HTN (hypertension) Hyperlipidemia Osteomyelitis of left foot history of Pulmonary nodule PVD (peripheral vascular disease) Vertigo history of--hypoglycemia Surgical History H/O eye surgery both eyes, corrective lens implant History of colonoscopy 8 years ago S/P amputation of lesser toe "right second and third toe" Family History Brother Diabetes Social History Smoking Status: Never smoker Second Hand Exposure: No; Hx Alcohol Use: Yes Alcohol type: beer Alcohol Intake Frequency: 2-4 x/Month Hx Substance Use: No Preferred Language: Lao Communication Ability: Effective Xerox Machine Operator Required: No Beliefs That Will Affect Care: None Current Living Situation: Family Current Living Situation Comment: brother and father Other Information That Helps Us Care for You: No Feels Safe at Home: Yes Safety Concerns: Feels Safe At This Time Assistive Devices: Glasses Review of Systems Review of Systems: All systems reviewed & are unremarkable except as noted in HPI & below and All systems reviewed & are unremarkable except as noted in Subjective Physical Exam Physical Exam: Physical Exam: Constitutional: appearance nourished, healthy Ears, Nose, Mouth and Throat: mucous membranes moist, no injection and skin normal, eyes normal Cardiovascular: normal S-1 and S-2 and regular rate and rhythm Respiratory: clear to auscultation (CTA) and no rales, rhonchi or wheeze Musculoskeletal: no peripheral edema and weak distal pulses, numerous toe amputations bilaterally LE Skin: stigmata of neurocutaneous disease noted LE Eyes: extraocular muscles intact (EOMI) and pupils equal, round and reactive to light (PERRL), difficulty with peripheral vision right NEUROLOGIC EXAMINATION: Mental status: Alert and interactive Oriented to full date and location Oriented to person Speech fluent with no evidence of aphasia Cranial Nerves smile eye brow raise symmetric Reflexes: Deep tendon reflexes were decreased bilaterally, neutral toes Sensory: loss of proprioception, decreased sensation to cool and sharp touch Coordination: finger to nose heel to fowler dysmetric Gait/Stance: Posture sitting up in bed, unsteady gait +romberg, sensory gait Motor: Negative for pronator drift of out stretched arms with eyes closed. Strength: biceps triceps hand reading coach 5/5 bilaterally hip flex plantar/patellar flex ext 5/5 Results & Data ([facility]) Vital Signs (Past 12 Hours) Vital Signs Temp Pulse Pulse Resp BP Pulse Ox 07/06/20 12:01 36.4 C L 73 18 179/85 H 07/06/20 07:39 66 07/06/20 07:30 36.8 C 68 18 159/84 H 97 Laboratory Results Abnormal lab results 07/05/20 07/05/20 07/06/20 Range/Units 17:10 17:20 07:24 MPV 11.0 H (7.4-10.4) fL Chloride (98-107) mmol/L BUN (7-18) mg/dl Glucose (70-99) mg/dl POC Glucose 134 H (70-99) mg/dl Hemoglobin A1c (4.5-5.6) % AST (15-37) U/L Total Protein (6.4-8.2) gm/dl Albumin (3.4-5.0) gm/dl Triglycerides (0-150) mg/dl Urine Protein 1+ H (Negative) Urine Glucose (UA) 1+ H (Negative) 07/06/20 07/06/20 07/06/20 Range/Units 07:24 07:24 11:14 MPV (7.4-10.4) fL Chloride 113 H (98-107) mmol/L BUN 21 H (7-18) mg/dl Glucose 53 L* (70-99) mg/dl POC Glucose 126 H (70-99) mg/dl Hemoglobin A1c 8.2 H (4.5-5.6) % AST 11 L (15-37) U/L Total Protein 6.2 L (6.4-8.2) gm/dl Albumin 3.1 L (3.4-5.0) gm/dl Triglycerides 184 H (0-150) mg/dl Urine Protein (Negative) Urine Glucose (UA) (Negative) Diagnostic Findings MRI brain-No acute intracranial abnormality. CTA neck- No cervical spine fracture. No dissection within the major vessels within the neck. Severe stenosis at the origin of the left vertebral artery which is diminutive. Similar appearance to MRA of February 08, 2016. Dominant, patent right vertebral artery. CTA head-No intraluminal thrombus, abrupt vessel cut off or dissection within the intracranial vessels. Moderate multifocal stenoses within the intracranial vessels, as described above, most pronounced within the posterior circulation.
[2020-07-06] MEDS: ATORVASTATIN 40 MG TAB PO SCH (20:53)
[2020-07-06] MEDS: ENOXAPARIN INJ 40 MG/0.4 ML SYR SQ SCH (20:53)
[2020-07-07 07:06] LABS: Hematocrit (blood only) 41.9 % (42-52); Hemoglobin 14.3 g/dL (14.0-18.0); Mean Corpuscular Hgb Conc 34.1 g/dL (32-36); Mean Corpuscular Volume 87.8 fL (80-100); Mean Platelet Volume 11.4 fL (7.4-10.4); Platelet Count 210 K/uL (130-400); RDW Coefficient of Variation 13.2 % (11.5-14.5); RDW Standard Deviation 42.1 fL (36.4-46.3); Red Blood Count 4.77 M/uL (4.7-6.1); White Blood Count 5.82 K/uL (4.8-10.8)
[2020-07-07 07:41] LABS: Albumin Level 3.2 gm/dl (3.4-5.0); BUN Creatinine Ratio 21.1 (10-20); Calcium 8.8 mg/dl (8.5-10.1); Creatinine Clr Calc Pharmacy 60.9 ml/min; Est GFR (African American) 65.3; Est GFR (Non-African American) 56.4; Potassium 3.8 mmol/L (3.5-5.1)
[2020-07-07 07:44] LABS: Bilirubin,Total 0.6 mg/dl (0.2-1); Globulin 3.1 gm/dl (2.5-4.0); Total Protein 6.3 gm/dl (6.4-8.2)
[2020-07-07 07:51] LABS: Folate (Folic Acid) 15.9 ng/ml (>5.38)
[2020-07-07] MEDS: LOSARTAN POTASSIUM 25 MG TAB PO SCH (08:24)
[2020-07-07] MEDS: ASPIRIN 81 MG ECTAB PO SCH (08:25)
[2020-07-07] MEDS: GABAPENTIN 300 MG CAP PO SCH ×2 (08:25→20:51)
[2020-07-07] MEDS: amLODIPine BESYLATE 5 MG TAB PO SCH (08:25)
[2020-07-07] MEDS: INSULIN ASPART 100 UNITS/ML 3 ML PEN SC SCH ×4 (08:27→20:39)
[2020-07-07] MEDS ORDERED: INSULIN GLARGINE SOLOSTAR 100 UNITS/ML 3 ML PEN SC SCH (09:00)
--- NOTE | 2020-07-07 11:07 | Pharmacy Report ---
Glycemic Control Progress Note - Date of Service July 07, 2020 - Scope Glycemic Pharmacist consulted for glycemic control to write orders per [facility] inpatient glycemic control protocol. - Objective Accuchecks BSG(last 24 hours):: 07/06/20 07/06/20 07/06/20 11:14 16:31 20:30 Glucose POC Glucose 126 H 134 H 163 H 07/07/20 07/07/20 06:23 07:27 Glucose 65 L POC Glucose 79 HbA1c:: Hemoglobin A1c 8.2 % (4.5-5.6) H 07/06/20 07:24 - Recent Pertinent Medications The patient is currently receiving: * Basal insulin: Lantus 30 units every 24 hours * Correctional Insulin: Novolog Correction per scale ACHS Goal Range: Low 120 mg/dL - High 160 mg/dL Correction Factor: 30 mg/dL/unit * Prandial insulin: Per carb ratio of 1 unit per 10 grams CHO consumed - Outpatient Anti-Diabetic Meds Lantus 35 units qAM + Novolog 8 units qHS - Assessment & Plan ASSESSMENT: * See progress note from 07/06/20 for more background info, in short: * Pt receiving SQ basal bolus insulin regimen for hyperglycemia secondary to ba seline DM (outpatient regimen on hold). * Patient is currently receiving an average of 38 units of insulin per day * 30 units of basal insulin * 8 units of prandial/correctional insulin * BSGs ranging 96 - 163 mg/dl over the past 24hrs * Changes needed to insulin regimen: * AM Fasting BSG = 79 mg/dl. This is slightly below goal range for patient based on inpatient targets and co-morbidities. The patient is currently trending downwards for blood sugar. Reduce Lantus by 20% again to 25 units. * Post-prandial BSGs trended upwards but only one BSG outside of goal range and all BSGs less than 180 mg/dL. Tighten CR. * Total daily dose = ~35 units. Suspect that patient's home basal regimen incorporates a lot of bolus insulin. Continue to reduce basal insulin while tighten CR. PLAN FOR INPATIENT GLYCEMIC CONTROL: * DECREASING Lantus to 25 units SQ qAM * Continuing correction factor of 30 mg/dl/unit * TIGHTENING carb ratio to 1 unit per 9 grams CHO consumed * Continuing goal range of Low 110 mg/dL - High 140 mg/dL RECOMMENDATIONS FOR DISCHARGE: * Patient's HbA1C has increased from 7.1% in January of 2020 to 8.2% in July of 2020. Recommend working with outpatient provider to tighten glycemic management control by modifying insulin regimen. * Goal HbA1C for patient would be around 7%. Thank you.
--- NOTE | 2020-07-07 12:43 | Hospitalist Progress Note ---
Date of Service July 07, 2020 Assessment & Plan (1) Orthostatic dizziness: (2) Dizziness: This is a 64-year-old male who has significant past medical history of type 1 diabetes mellitus since age 20, diabetic neuropathy, diabetic nephropathy with CKD stage III, diabetic retinopathy, HTN, HLD, PVD who presents to ED secondary to dizziness x 11 days. Pt history not clinically significant for vertigo or vestibular dysfunction. MRI brain no acute CVA but multiple R cerebellar lacunar infarcts, R ender and both thalami. Prior CTA head/neck from 01/2020 reveal moderate multifocal stenoses within the intracranial vessels, most pronounced in posterior circulation, left vertebral artery significant stenosis. Patient with poorly controlled T1DM and PVD with patient at great risk for cerebral vascular event. Orthostatics positive in ED He's OK when in bed, but when he gats up he almost falls and gets dizzy, this is not improving gentle IVF Neurology - appreciate their input to determine if this possible related to poor posterior circulation continue ASA 81mg daily, add high intensity statin 40mg daily PT/OT orthostatics, +Tilt meclizine prn for dizziness, Atshu Hernandez (3) DM type 1 (diabetes mellitus, type 1): uncontrolled, last a1c 8.3 03/31/2020 obtain a1c in a.m. lantus/novolog per protocol consult glycemic pharmacist - appreciate their input (4) HTN (hypertension): BP elevated, on Amlodipine Continue Losartan 25mg daily pt with CKD 3 likely 2/2 to diabetic nephropathy (5) CKD (chronic kidney disease) stage 3, GFR 30-59 ml/min: baseline renal fxn 1.6 given dx of T1DM and CKD -3 On losartan 25mg daily (6) PVD (peripheral vascular disease): on ASA resume statin - atorvastatin 40mg daily given atherosclerosis of intracranial vessels (7) DVT prophylaxis: SQ Lovenox Disposition: med/tele Follow up: PCP Dr. Robles upon discharge Labs checked, Add Merari-D BID ROS-No Headache, No Visual Changes, No Nausea, No Vomiting, No Fever, No Chills, No Neck Pain or Stiffness, No Chest Pain, No Palpitations, No SOB, No MARIE, No Cough, No Sputum, No Wheezing, No Abdominal Pain, No Diarrhea, No Hematemesis, No Hemoptysis, No Unexpected Weight Loss, No Flank pain, No Melena, No Hematochezia, No Frequency, No Urgency, No Burning, No Hematuria, No Rashes, No Diaphoresis. Appetite is Normal, Still very dizzy when he gets OOB, No real improvement Physical Exam Gen-AAO x 3, NAD, Afebrile Head-NCAT, EOMI, PERRLA, Anicteric Sclera, No Posterior Pharyngeal Erythema Neck-Supple, No JVD, No Thyromegaly, No Masses, No LAD, No Bruits Lungs-Clear to Auscultation Bilaterally, No Rales, No Rhonchi, No Wheezing, No Crepitus Chest-No S4, +S1, +S2, No S3, No Murmurs, No Rubs, No Gallops, No Ectopy Abdomen-Soft, Bowel Sounds Present, Non Tender, Non Distended, No Hepatomegaly, No Splenomegaly, No Palpable Masses, No Rebound, No Rigidity, No Guarding Musculoskeletal-Full Range of Motion Bilaterally, No CVAT Extremities-No Cyanosis, No Clubbing, No Edema Nuero-Cranial Nerves II-XII grossly intact, Motor WNL, DTRs WNL, Strength WNL, Non Focal Psych-Normal Mood Admission and Anticipated Discharge Date Admission Date: July 06, 2020 Results & Data Results & Data ([facility]) Vital Signs (Past 12 Hours) Vital Signs Temp Pulse Pulse Resp BP Pulse Ox 07/07/20 11:17 36.3 C L 59 L 20 154/81 H 99 07/07/20 10:03 98 07/07/20 07:38 64 07/07/20 07:37 36.5 C 67 20 144/81 H 98 07/07/20 04:57 66 07/07/20 03:29 36.9 C 75 18 160/89 H 98
[2020-07-07] MEDS: SODIUM CHLORIDE 0.9% 500 ML IV SCH ×2 (14:49→21:10)
[2020-07-07] MEDS: FEXOFENADINE 60MG/PSEUDOEPHEDRINE 120MG TAB PO SCH ×2 (14:49→20:51)
[2020-07-07] MEDS: ATORVASTATIN 40 MG TAB PO SCH (20:51)
[2020-07-07] MEDS: ENOXAPARIN INJ 40 MG/0.4 ML SYR SQ SCH (21:16)
[2020-07-07 23:33] VITALS: TEMP 97.7
[2020-07-08 06:09] LABS: Hematocrit (blood only) 42.1 % (42-52); Hemoglobin 14.2 g/dL (14.0-18.0); Mean Corpuscular Hemoglobin 29.6 pg (25-34); Mean Corpuscular Hgb Conc 33.7 g/dL (32-36); Mean Corpuscular Volume 87.9 fL (80-100); Mean Platelet Volume 11.4 fL (7.4-10.4); Platelet Count 185 K/uL (130-400); RDW Coefficient of Variation 12.9 % (11.5-14.5); RDW Standard Deviation 41.2 fL (36.4-46.3); Red Blood Count 4.79 M/uL (4.7-6.1)
[2020-07-08 06:40] LABS: Albumin Level 3.2 gm/dl (3.4-5.0); BUN Creatinine Ratio 22.1 (10-20); Calcium 8.8 mg/dl (8.5-10.1); Creatinine Clr Calc Pharmacy 54.4 ml/min; Est GFR (Non-African American) 49.2
[2020-07-08 06:43] LABS: Albumin Globulin Ratio 1.1 (0.9-2); Bilirubin,Total 0.7 mg/dl (0.2-1); Total Protein 6.2 gm/dl (6.4-8.2)
[2020-07-08] MEDS ORDERED: INSULIN GLARGINE SOLOSTAR 100 UNITS/ML 3 ML PEN SC SCH (09:00)
[2020-07-08] MEDS: amLODIPine BESYLATE 5 MG TAB PO SCH (09:00)
[2020-07-08] MEDS: GABAPENTIN 300 MG CAP PO SCH (09:01)
[2020-07-08] MEDS: FEXOFENADINE 60MG/PSEUDOEPHEDRINE 120MG TAB PO SCH (09:01)
[2020-07-08] MEDS: LOSARTAN POTASSIUM 25 MG TAB PO SCH (09:01)
[2020-07-08] MEDS: ASPIRIN 81 MG ECTAB PO SCH (09:01)
[2020-07-08] MEDS: INSULIN ASPART 100 UNITS/ML 3 ML PEN SC SCH ×2 (09:05→13:24)
--- NOTE | 2020-07-08 09:07 | Discharge Summary ---
Date of Service July 08, 2020 Admission HPI Per Admitting Provider This is a 64-year-old male has significant past medical history of type 1 diabetes mellitus since age 20, diabetic neuropathy, diabetic nephropathy with CKD stage III, diabetic retinopathy, HTN, HLD, PVD who presents to ED secondary to dizziness x 11 days. Symptoms have been present ever since M[place]. He states anytime he gets up to walk he becomes very lightheaded and dizzy. Feels like he could pass out. He is having difficulty ambulating and feels very off balance. He denies any falls but has been walking with a walker. He denies any sensation of, "spinning." Quick head movements or quick position change does not exacerbate symptoms. For the past 11 days he has had 2 episodes of nausea and vomiting that occurred with lightheadedness. Even after standing for period time symptoms do not resolve. He denies any recent illness, fever, chills, sweats, syncope, chest pain, shortness of breath, cough, URI symptoms, palpitations, abdominal pain, dysuria, increased urinary frequency with urination, diarrhea. His last BM was 2 days ago. He states he is been having difficulty urinating because when he stands he gets dizzy. No recent illness or sick contacts. Of significance patient was hospitalized 01/2020 secondary to dizziness. Symptoms were felt to be secondary to hypoglycemia although he did undergo a thorough neurologic work-up. At that time MRI was negative for acute CVA but head and neck CTA did reveal significant atherosclerotic disease intracranial vessels. He was placed on ASA and statin. He has since discontinued statin due to, "makes me feel funny." He has been compliant with statin. He is a poorly controlled type I diabetic. His last A1c was 8.3 on 03/31/2020. He does not monitor blood sugars on a regular basis. In ED he remained hemodynamically stable. Orthostatic vital signs were obtained which were positive. Blood pressures were lying 157/70, sitting 136/75, standing 136/71. Heart rates were 67, 73 and 70 respectively. ED staff unable to ambulate patient secondary to dizziness. Admission Exam Per Admitting Provider Constitutional: WD/WN, M, vitals as above, NAD, sitting up in bed, pleasant, conversing easily Head: Normocephalic, Atraumatic Eyes: PERRL, conjunctivae normal, anicteric sclerae ENMT: external ear and nose normal, external auditory canal clear of cerumen, TMs white with normal anatomic landmarks, oropharynx normal Neck: trachea midline, no thyromegaly normal visual inspection Respiratory: normal respiratory effort, lungs clear to auscultation, no wheeze, rales, rhonchi. Normal insp/exp effort, no accessory muscle use Cardiovascular: RRR, no murmur, no edema Vessels: no JVD or carotid bruit Chest: normal inspection of chest Abdomen: normal bowel sounds, soft, nontender, no hepatosplenomegaly Musculoskeletal: no cyanosis or clubbing, extremities motor strength 5/5 Skin: no rashes, warm and dry normal turgor Neurologic: PERRL, EOMI, accommodation nl, no face palsy, no dysarthria CN's II-XI intact bilaterally and moves all extremities, symptoms not exacerbated with quick head movements, or position change Psychiatric: A+Ox3, euthymic affect Lymphatic: no cervical or axillary lymphadenopathy : deferred Principal Diagnosis (1) Orthostatic dizziness: (2) Dizziness: (3) DM type 1 (diabetes mellitus, type 1): (4) HTN (hypertension): (5) CKD (chronic kidney disease) stage 3, GFR 30-59 ml/min: (6) PVD (peripheral vascular disease): Discharge Exam see below Discharge Data Allergies Allergy/AdvReac Type Severity Reaction Status Date / Time levofloxacin Allergy Unknown "nervous" Verified 07/05/20 13:27 shrimp AdvReac Unknown NAUSEA Verified 07/05/20 13:27 Consultations 07/05/20 16:15 ED Decision to Admit Stat 07/05/20 20:06 Consult Case Management - Discharge Planning Routine Consult Neurology Routine Ordered Studies 07/05/20 11:30 MR brain wo con Stat Hospital Course (1) Orthostatic dizziness: (2) Dizziness: This is a 64-year-old male who has significant past medical history of type 1 diabetes mellitus since age 20, diabetic neuropathy, diabetic nephropathy with CKD stage III, diabetic retinopathy, HTN, HLD, PVD who presents to ED secondary to dizziness x 11 days. Pt history not clinically significant for vertigo or vestibular dysfunction. MRI brain no acute CVA but multiple R cerebellar lacunar infarcts, R ender and both thalami. Prior CTA head/neck from 01/2020 reveal moderate multifocal stenoses within the intracranial vessels, most pronounced in posterior circulation, left vertebral artery significant stenosis. Patient with poorly controlled T1DM and PVD with patient at great risk for cerebral vascular event. Orthostatics positive in ED He's OK when in bed, but when he gats up he almost falls and gets dizzy, this is not improving gentle IVF Neurology - appreciate their input to determine if this possible related to poor posterior circulation continue ASA 81mg daily, add high intensity statin 40mg daily PT/OT orthostatics, +Tilt meclizine prn for dizziness, Ativan Merari-D ordered BID and now not dizzy DC home today and f/u c pcp (3) DM type 1 (diabetes mellitus, type 1): uncontrolled, last a1c 8.3 03/31/2020 obtain a1c in a.m. lantus/novolog per protocol (4) HTN (hypertension): BP elevated, on Amlodipine and Losartan 25mg daily pt with CKD 3 likely 2/2 to diabetic nephropathy (5) CKD (chronic kidney disease) stage 3, GFR 30-59 ml/min: baseline renal fxn 1.6 given dx of T1DM and CKD -3 On losartan 25mg daily (6) PVD (peripheral vascular disease): On ASA Atorvastatin 40mg daily given atherosclerosis of intracranial vessels (7) DVT prophylaxis: Disposition: DC Home Today Follow up: PCP Dr. Robles upon discharge Labs checked ROS-No Headache, No Visual Changes, No Nausea, No Vomiting, No Fever, No Chills, No Neck Pain or Stiffness, No Chest Pain, No Palpitations, No SOB, No MARIE, No Cough, No Sputum, No Wheezing, No Abdominal Pain, No Diarrhea, No Hematemesis, No Hemoptysis, No Unexpected Weight Loss, No Flank pain, No Melena, No Hematochezia, No Frequency, No Urgency, No Burning, No Hematuria, No Rashes, No Diaphoresis. Appetite is Normal, Still very dizzy when he gets OOB, No dizziness now Physical Exam Gen-AAO x 3, NAD, Afebrile Head-NCAT, EOMI, PERRLA, Anicteric Sclera, No Posterior Pharyngeal Erythema Neck-Supple, No JVD, No Thyromegaly, No Masses, No LAD, No Bruits Lungs-Clear to Auscultation Bilaterally, No Rales, No Rhonchi, No Wheezing, No Crepitus Chest-No S4, +S1, +S2, No S3, No Murmurs, No Rubs, No Gallops, No Ectopy Abdomen-Soft, Bowel Sounds Present, Non Tender, Non Distended, No Hepatomegaly, No Splenomegaly, No Palpable Masses, No Rebound, No Rigidity, No Guarding Musculoskeletal-Full Range of Motion Bilaterally, No CVAT Extremities-No Cyanosis, No Clubbing, No Edema Nuero-Cranial Nerves II-XII grossly intact, Motor WNL, DTRs WNL, Strength WNL, Non Focal Psych-Normal Mood Total Time Total Time Spent Total Time Spent (In Minutes): 45 mins Total Time Includes: Examination of the Patient, Discharge Planning, Medication Reconciliation and Communication With Other Providers Discharge Plan Discharge Items Patient Disposition: Home - Self-Care Reason For Visit: INTRACTABLE VERTIGO Discharge Diagnosis: (1) Orthostatic dizziness: (2) Dizziness: (3) DM type 1 (diabetes mellitus, type 1): (4) HTN (hypertension): (5) CKD (chronic kidney disease) stage 3, GFR 30-59 ml/min: (6) PVD (peripheral vascular disease): Condition on Discharge: Good Activity: Resume your previous activity Lifting: Gradually increase as tolerated Bathing: No limitations Sexual Activity: When tolerated Exercise/Sports: Gradually increase as tolerated Driving/Machine Use: No limitations Weightbearing: Full weightbearing Non-emergency contact: Primary Care Provider and Neurologist Call non-emergency contact if: you have any medication questions Follow-up/Referrals: Bravo Robles MD [Primary Care Provider] - (Date & Time 07/13/2020 11:00 AM Provider Bravo Robles III, MD Department [facility] ) Kalee Domingo MD [Physician] - (Call for first opening) Diet: Carb Count or DM1 Addtl Attending Provider Instructions: Tight Sugar Control Pending Studies at Discharge: No Stand-Alone Forms: My ROKT, Smoking Cessation Medications and DC Order Prescriptions: New atorvastatin 40 mg Tablet 40 mg PO HS Qty: 30 RF: 0 meclizine 25 mg Tablet 25 mg PO Q8H PRN (Reason: dizziness) Qty: 15 RF: 0 losartan 25 mg Tablet 25 mg PO QAM Qty: 30 RF: 0 fexofenadine-pseudoephedrine [Merari-D 12 Hour] 60-120 mg Tablet Extended Release 12 Hr 1 tab PO BID Qty: 14 RF: 0 Continued amlodipine 5 mg tablet 5 mg PO QAM RF: 0 aspirin [Aspirin Low Dose] 81 mg Tablet,Delayed Release (Dr/Ec) 81 mg PO QAM RF: 0 gabapentin 300 mg capsule 600 mg PO BID RF: 0 insulin aspart U-100 [Novolog Flexpen U-100 Insulin] 100 unit/mL (3 mL) insulin pen 8 unit subcut HS RF: 0 Lantus Solostar U-100 Insulin 100 unit/mL (3 mL) insulin pen 35 unit SUBCUT QAM RF: 0 Discharge Orders: Discharge Order (Routine); Ordered 07/08/20 Ordered By: Miki Gambino/Other Patient Handouts: Managing Type 1 Diabetes Admission Data Admit Date/Time: 07/06/20 13:03 Attending Provider: Miki Morgan Admit Provider: Lester Avendano Primary Care Provider: Bravo Robles Other Providers: Lester Avendano ; Kalee Domingo
[2020-07-08 12:16] VITALS: BP 123/72; O2SAT 95
[2020-07-08 13:05] VITALS: PULSE 64
[2020-07-09] MEDS ORDERED: INSULIN GLARGINE SOLOSTAR 100 UNITS/ML 3 ML PEN SC SCH (09:00)
--- NOTE | 2020-07-12 09:30 | Coding Query ---
CODING QUERY To promote full compliance with coding requirements relating to patient care, provider participation is requested in all cases of nailhead operator uncertainty. Please assist us with the question(s) below: Coding Question(s): Orthostatic Dizziness as well as Diabetic Neuropathy are documented in the record and on Discharge Summary, with documentation of, " Orthostatics positive in ED He's OK when in bed, but when he gats up he almost falls and gets dizzy, this is not improving", and Neurology Consult documents, " PT for walking blood pressures and evaluation of gait" and "would repeat blood pressure q shift for further evaluation" and "Diabetic neuropathy: 1. severe diabetic neuropathy- contributing to the balance issues", and "Impression: gait instability suspect polyfactorial but in part related to orthostasis, neuropathy", and, "Check othostatics, minimize meds that could contribute. Increase fluid, salt, arise slowing, thigh high teds. An underlying degenerative process could be present, but there seems to be enough explanation without invoking that". Orthostatic dizziness is not a valid diagnosis as is and would need clarified as well need to clarify the most likely etiology of the Dizziness. ( ) Dizziness is most likely due to Orthostatic Dizziness. Please specify below the meaning of Orthostatic Dizziness: ( ) Dizziness due to Orthostatic Hypotension ( x ) Dizziness due to Other: Please Specify-Labyrinthitis ( ) Dizziness is most likely due to Diabetic Neuropathy ( ) Dizziness is most likely due to Both Orthostatic Dizziness and Diabetic Neuropathy. Please specify below the meaning of Orthostatic Dizziness: ( ) Dizziness due to Orthostatic Hypotension ( ) Dizziness due to Other: Please Specify ( ) Dizziness is most likely due to Other: Please Specify ( ) Dizziness due to unknown likely etiology Physician's Response(s): Thank you Mackenzie Jiang Principal Diagnosis: "that condition established after study, to be chiefly responsible for occasioning the admission of the patient to the hospital for care." Co-Existing Principal Diagnosis: "when two or more diagnoses equally meet the criteria for principal diagnosis as determined by the circumstances of admission, diagnostic work up, and/or therapy provided, and the Alphabetic Index, Tabular List, or another coding guideline does not provide sequencing direction, any one of the diagnoses may be sequenced first." "When the physician has documented what appears to be a current diagnosis in the body of the record, but has not included the diagnosis in the final diagnostic statement, the physician should be asked whether the diagnosis should be added." (Source Coding [facility] 2 QTR90. p3-4) LARS
== END 2020-07-08 13:49 | disposition home or self-care (01) | DRG 149 ==
LOC: 2N 10:55 → ED 10:55 → SUATTDRO 16:31 → 2N 19:46

== ENCOUNTER 2020-07-15 23:10 | Observation (INO) ==
--- NOTE | 2020-07-15 23:24 | Emergency Department Note ---
History of Present Illness General Chief complaint: Fall Stated complaint: FALL Time Seen by Provider: 07/15/20 23:14 Source: patient History of Present Illness Provider complaint: Back pain Onset (ago): hour(s) Location: back Radiation: non-radiation Severity: mild Pain Consistency: + now resolved Quality: + aching Exacerbated By: + movement Associated symptoms: no chest pain, no cough, no fever/chills, no headaches, no nausea/vomiting and no shortness of breath This is a 64-year-old male who presents after a mechanical fall. He was having a bowel movement on the bathroom and was getting up when he lost his balance and fell. He states he did not feel dizzy when he fell. He has been feeling dizzy for some time now and was just recently in the hospital for this. He states they treated him for a sinus infection but otherwise his tests were unr emarkable. He states he is not dizzy now. He complains of low back pain. He states that he called the ambulance because he could not get up after he fell. His back was bothering him. He describes the pain as a dull ache. It is worse when he tries to move. No associated numbness or weakness to his extremities. He denies any fever, cough or cold symptoms, chest pain, shortness of breath, abdominal pain, vomiting or black or bloody stools. He does live with his father who tested positive for COVID-19. When he was admitted to the hospital he tested negative. Home Medications Medication Instructions Recorded Confirmed Type amlodipine 5 mg PO QAM 10/19/18 07/15/20 History aspirin [Aspirin Low Dose] 81 mg PO QAM 10/19/18 07/15/20 History gabapentin 600 mg PO BID 10/19/18 07/15/20 History Lantus Solostar U-100 Insulin 35 unit SUBCUT QAM 02/26/20 07/15/20 History insulin aspart U-100 [Novolog 8 unit SUBCUT HS 02/26/20 07/15/20 History Flexpen U-100 Insulin] atorvastatin 40 mg PO HS #30 tab 07/08/20 07/15/20 Rx fexofenadine-pseudoephedrine 1 tab PO BID #14 tab 07/08/20 07/15/20 Rx [Merari-D 12 Hour] losartan 25 mg PO QAM #30 tab 07/08/20 07/15/20 Rx meclizine 25 mg PO Q8H PRN #15 tab 07/08/20 07/15/20 Rx Allergies Allergy/AdvReac Type Severity Reaction Status Date / Time levofloxacin Allergy Unknown "nervous" Verified 07/15/20 23:54 shrimp AdvReac Unknown NAUSEA Verified 07/15/20 23:54 Past Med/Surg History Medical History (Updated 07/16/20 @ 02:12 by Kwabena Quiroz MD) CKD (chronic kidney disease) stage 3, GFR 30-59 ml/min Diabetic neuropathy Difficult airway for intubation Glidescope 2012 DM type 1 (diabetes mellitus, type 1) History of heart block Patient presented to [facility] 03/2013 for elective L foot I&D. On induction with propofol in OR pt went into 3rd degree HB. Pt intubated and given 1 dose of Epi, which resolved HB but diffuse ST depression remained. Surgery aborted, pt to PACU, where ST segments returned to baseline and pt was extubated. Cardio consulted, echo WNL, no etiology discovered for HB, ST depression felt 2/2 strain from Epi or apnea. No further testing or intervention recommended. History of osteomyelitis HLD (hyperlipidemia) HTN (hypertension) Hyperlipidemia Osteomyelitis of left foot history of Pulmonary nodule PVD (peripheral vascular disease) Vertigo history of--hypoglycemia Surgical History H/O eye surgery both eyes, corrective lens implant History of colonoscopy 8 years ago S/P amputation of lesser toe "right second and third toe" Family History Brother Diabetes Social History Smoking Status: Never smoker Second Hand Exposure: No; Hx Alcohol Use: Yes Alcohol type: beer Alcohol Intake Frequency: 2-4 x/Month Hx Substance Use: No Preferred Language: Indonesian Communication Ability: Effective 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 and A total of 10 systems reviewed and were otherwise negative Physical Exam Vital Signs Vital Signs - 24 hr 07/15/20 23:14 07/15/20 23:15 07/15/20 23:30 Temperature 37.2 C Temperature Source Oral Pulse Rate 82 85 83 Pulse Rate from SpO2 Sensor Respiratory Rate 16 20 24 Respiratory Effort / Characteristics Non-Labored Spontaneous Respiratory Depth Normal Blood Pressure 151/73 H 151/73 H 148/66 H Blood Pressure Mean 91 99 92 Pulse Oximetry 98 97 98 Oxygen Delivery Method Room Air Sepsis New/Unexplained Change in Mental Status N/A Sepsis Action Taken by Nursing No Action Required 07/16/20 00:34 07/16/20 01:30 Temperature Temperature Source Pulse Rate 82 Pulse Rate from SpO2 Sensor 85 Respiratory Rate 20 20 Respiratory Effort / Characteristics Respiratory Depth Blood Pressure 149/81 H 148/71 H Blood Pressure Mean 111 87 Pulse Oximetry 94 95 Oxygen Delivery Method Sepsis New/Unexplained Change in Mental Status Sepsis Action Taken by Nursing Constitutional: Vital signs reviewed. Eyes: Pupils are equal round reactive to light. Conjunctiva are noninjected. ENT: Normocephalic atraumatic. Pharynx is clear without erythema or exudate. Mucous membranes are moist. Neck supple without meningeal signs. No midline tenderness to the cervical spine. Respiratory: Clear to auscultation bilaterally. Breath sounds are equal bila terally. Cardiovascular: Regular rate and rhythm. No rubs or gallops. GI: Soft, nondistended and nontender. Bowel sounds are present. Musculoskeletal: Mild tenderness to the lower lumbar spine without step-off or deformity. No tenderness to the thoracic spine. Integumentary: No cyanosis. or jaundice. Neurological: The patient is awake and alert. No focal deficits. Motor and sensation are intact in all extremities. Psychiatric: Normal affect. Not anxious appearing. Course Administered Medications Discontinued Medications Sodium Chloride (Nss 1000ml) 500 mls @ 999 mls/hr IV .Q31M ONE Stop: 07/16/20 00:47 Last Infusion: 07/16/20 01:06 Dose: 0 mls/hr Documented by: [id number] Admin: 07/16/20 00:35 Dose: 999 mls/hr Documented by: [id number] Medical Decision Making Differential Diagnosis Lumbar strain, compression fracture, metabolic derangement, anemia, contusion, hypoglycemia Medical Records Attestation: I reviewed the patient's medical records. I did perform a limited focused review of portions of the patient's old chart on the electronic medical record. The patient was admitted earlier this month for dizziness for 11 days. He had a work-up in the hospital including an MRI of his brain. He was discharged home after 4 days of hospitalization. He had a negative COVID-19 test. Home Medications Current Medication List: was personally reviewed by me Laboratory Data Attestation: I reviewed the patient's lab results. Result diagrams: 07/16/20 00:49 07/15/20 23:30 Lab Results 07/15/20 07/15/20 07/16/20 Range/Units 23:30 23:30 00:49 WBC Cancelled 6.89 RBC Cancelled 4.69 L Hgb Cancelled 14.3 Hct Cancelled 40.4 L MCV Cancelled 86.1 MCH Cancelled 30.5 MCHC Cancelled 35.4 RDW Std Deviation Cancelled 41.8 RDW Coeff of Дмитрий Cancelled 13.2 Plt Count Cancelled 166 MPV Cancelled 12.2 H Immature Gran % (Auto) Cancelled 0.3 Neut % (Auto) Cancelled 77.8 Lymph % (Auto) Cancelled 8.6 [place] % (Auto) Cancelled 13.2 Eos % (Auto) Cancelled 0.0 Baso % (Auto) Cancelled 0.1 Neut # (Auto) Cancelled 5.36 Lymph # (Auto) Cancelled 0.59 L [place] # (Auto) Cancelled 0.91 H Eos # (Auto) Cancelled 0.00 Baso # (Auto) Cancelled 0.01 Immature Gran # (Auto) Cancelled 0.02 Absolute Nucleated RBC Cancelled Nucleated RBC % (auto) Cancelled Neutrophils % (Manual) Cancelled Band Neutrophils % Cancelled Lymphocytes % (Manual) Cancelled Prolymphocyte % Cancelled Reactive Lymphs % (Man) Cancelled Monocytes % (Manual) Cancelled Eosinophils % (Manual) Cancelled Basophils % (Manual) Cancelled Metamyelocytes % (Man) Cancelled Myelocytes % (Man) Cancelled Promyelocytes % (Man) Cancelled Blast Cells % (Manual) Cancelled Plasma Cell % (Manual) Cancelled Other Cells % Cancelled Nucleated RBC % Cancelled Neutrophils # (Manual) Cancelled Band Neutrophils # Cancelled Total Absolute Neuts Cancelled Lymphocytes # (Manual) Cancelled Prolymphocyte # Cancelled Reactive Lymphs # Cancelled Total Abs Lymphocytes Cancelled Monocytes # (Manual) Cancelled Eosinophils # (Manual) Cancelled Basophils # (Manual) Cancelled Metamyelocytes # (Man) Cancelled Myelocytes # (Manual) Cancelled Promyelocytes # (Man) Cancelled Blast Cells # (Man) Cancelled Plasma Cell # (Manual) Cancelled Other Cells # Cancelled Nucleated RBCs # (Man) Cancelled Hypersegmented Neuts Cancelled Hyposegmented Neuts Cancelled Hypogranular Neuts Cancelled Large Granular Lymphs Cancelled # Lrg Granular Lymphs Cancelled Hairy Cells Cancelled Smudge Cells Cancelled Toxic Granulation Cancelled Toxic Vacuolation Cancelled Dohle Bodies Cancelled Nisa Rods Cancelled Platelet Estimate Cancelled Hypogranular Platelets Cancelled Clumped Platelets Cancelled Giant Platelets Cancelled Platelet Satelliting Cancelled RBC Morphology Cancelled Polychromasia Cancelled Hypochromasia Cancelled Poikilocytosis Cancelled Basophilic Stippling Cancelled Anisocytosis Cancelled Microcytosis Cancelled Macrocytosis Cancelled Spherocytes Cancelled Pappenheimer Bodies Cancelled Sickle Cells Cancelled Target Cells Cancelled Tear Drop Cells Cancelled Ovalocytes Cancelled Stomatocytes Cancelled [place] Bodies Cancelled Echinocytes Cancelled Acanthocytes (Spur) Cancelled Rouleaux Cancelled RBC Agglutinates Cancelled Schistocytes Cancelled RBC Morph Comment Cancelled Sezary Cell Cancelled Sodium 140 (136-145) mmol/L Potassium 4.2 (3.5-5.1) mmol/L Chloride 106 (98-107) mmol/L Carbon Dioxide 29 (21-32) mmol/L Anion Gap 5.0 (3-11) BUN 28 H (7-18) mg/dl Creatinine 1.78 H (0.6-1.4) mg/dl Est Cr Clr Drug Dosing 44.4 ml/min Est GFR ( Amer) 46.4 Est GFR (Non-Af Amer) 40.0 BUN/Creatinine Ratio 15.6 (10-20) Glucose 118 H (70-99) mg/dl Calcium 9.1 (8.5-10.1) mg/dl Magnesium 2.0 (1.8-2.4) mg/dl Specimen Hemolysis COVID-19 Eval Order SARS-CoV-2, RNA, NAAT (NEGATIVE) 07/16/20 07/16/20 Range/Units 01:40 01:40 WBC RBC Hgb Hct MCV MCH MCHC RDW Std Deviation RDW Coeff of Дмитрий Plt Count MPV Immature Gran % (Auto) Neut % (Auto) Lymph % (Auto) [place] % (Auto) Eos % (Auto) Baso % (Auto) Neut # (Auto) Lymph # (Auto) [place] # (Auto) Eos # (Auto) Baso # (Auto) Immature Gran # (Auto) Absolute Nucleated RBC Nucleated RBC % (auto) Neutrophils % (Manual) Band Neutrophils % Lymphocytes % (Manual) Prolymphocyte % Reactive Lymphs % (Man) Monocytes % (Manual) Eosinophils % (Manual) Basophils % (Manual) Metamyelocytes % (Man) Myelocytes % (Man) Promyelocytes % (Man) Blast Cells % (Manual) Plasma Cell % (Manual) Other Cells % Nucleated RBC % Neutrophils # (Manual) Band Neutrophils # Total Absolute Neuts Lymphocytes # (Manual) Prolymphocyte # Reactive Lymphs # Total Abs Lymphocytes Monocytes # (Manual) Eosinophils # (Manual) Basophils # (Manual) Metamyelocytes # (Man) Myelocytes # (Manual) Promyelocytes # (Man) Blast Cells # (Man) Plasma Cell # (Manual) Other Cells # Nucleated RBCs # (Man) Hypersegmented Neuts Hyposegmented Neuts Hypogranular Neuts Large Granular Lymphs # Lrg Granular Lymphs Hairy Cells Smudge Cells Toxic Granulation Toxic Vacuolation Dohle Bodies Nisa Rods Platelet Estimate Hypogranular Platelets Clumped Platelets Giant Platelets Platelet Satelliting RBC Morphology Polychromasia Hypochromasia Poikilocytosis Basophilic Stippling Anisocytosis Microcytosis Macrocytosis Spherocytes Pappenheimer Bodies Sickle Cells Target Cells Tear Drop Cells Ovalocytes Stomatocytes [place] Bodies Echinocytes Acanthocytes (Spur) Rouleaux RBC Agglutinates Schistocytes RBC Morph Comment Sezary Cell Sodium (136-145) mmol/L Potassium (3.5-5.1) mmol/L Chloride (98-107) mmol/L Carbon Dioxide (21-32) mmol/L Anion Gap (3-11) BUN (7-18) mg/dl Creatinine (0.6-1.4) mg/dl Est Cr Clr Drug Dosing ml/min Est GFR ( Amer) Est GFR (Non-Af Amer) BUN/Creatinine Ratio (10-20) Glucose (70-99) mg/dl Calcium (8.5-10.1) mg/dl Magnesium (1.8-2.4) mg/dl Specimen Hemolysis COVID-19 Eval Order Covid19 [facility]Now [facility] SARS-CoV-2, RNA, NAAT POSITIVE A* (NEGATIVE) Imaging Data Attestation: I personally reviewed and interpreted this imaging study as follows: My Impression: X-ray of the lumbosacral spine shows no evidence of acute fracture or dislocation. ECG Data Attestation: I personally reviewed and interpreted this ECG as follows: Indication: + other (Dizzy) Rate (beats per minute): 81 Rhythm: + normal sinus ECG Intervals/blocks: + Normal QT ECG ST segments: no ST elevation ECG Findings: no PVCs Comparison ECG Date: from (July 05, 2020) Change: no significant change MDM Narrative I did evaluate the patient as noted above.The patient has had a mechanical fall after coming off the toilet. He states he could not get up because of his back pain. He states his back pain is fairly mild at this point. He is neurologically intact. He states he has been dizzy for about 2 weeks but has been hospitalized for this. He is not dizzy now. IV access was established. He was given some normal saline IV. I did place an order for continuous cardiac monitoring. The monitor showed normal sinus rhythm at a rate of 82 bpm. I did order and personally review the patient's 12-lead EKG as described above. EKG does not show any acute ischemia. I did order and personally reviewed the images of the patient's lumbar spine x-rays as described above. There is no evidence of acute fracture dislocation per my interpretation. I did order and review the patient's blood work as noted in the electronic medical record. His creatinine is 1.78 which is about at his baseline. He does have CKD. His hemoglobin is 14. His white count is not elevated. Electrolytes are unremarkable. I did discuss the test results with the patient. We did attempt an ambulatory trial. The patient was extremely unsteady and appeared to nearly fall several times. He will therefore be hospitalized for further care and evaluation. I did discuss the case with the hospitalist and rehabilitation caseworker. Routine Covid screening came back positive. Impression & Plan Low back pain, Fall, Dizziness, CKD (chronic kidney disease), Ambulatory dysfunction, COVID-19 Discharge Plan Visit Data Chief Complaint: Fall Stated Complaint: FALL ED Provider: Kwabena Quiroz Discharge Problem: Low back pain, Fall, Dizziness, CKD (chronic kidney disease), Ambulatory dysfunction, COVID-19 Discharge Instructions Immanuel/Other Patient Handouts: ED Back Pain (Acute or Chronic), ED Dizziness, Uncertain Cause Activity Restrictions/Additional Instructions: You have been examined and treated today on an emergency basis only. This is not a substitute for, or an effort to provide, complete comprehensive medical care. It is impossible to recognize and treat all injuries or illnesses in a single emergency department visit. It is therefore important that you follow up closely with your physician. Call as soon as possible for an appointment. Return for worsening symptoms or if you develop fever, vomiting, chest pain, shortness of breath, abdominal pain, loss of control of your bowel or bladder, numbness or weakness to your legs, numbness to your private area, difficulty urinating, or any other concerning symptoms. Forms Stand Alone Forms: [facility] Prescriptions Prescriptions: No Action amlodipine 5 mg tablet 5 mg PO QAM RF: 0 aspirin [Aspirin Low Dose] 81 mg Tablet,Delayed Release (Dr/Ec) 81 mg PO QAM RF: 0 gabapentin 300 mg capsule 600 mg PO BID RF: 0 insulin aspart U-100 [Novolog Flexpen U-100 Insulin] 100 unit/mL (3 mL) insulin pen 8 unit subcut HS RF: 0 Lantus Solostar U-100 Insulin 100 unit/mL (3 mL) insulin pen 35 unit SUBCUT QAM RF: 0 atorvastatin 40 mg Tablet 40 mg PO HS Qty: 30 RF: 0 meclizine 25 mg Tablet 25 mg PO Q8H PRN (Reason: dizziness) Qty: 15 RF: 0 losartan 25 mg Tablet 25 mg PO QAM Qty: 30 RF: 0 fexofenadine-pseudoephedrine [Merari-D 12 Hour] 60-120 mg Tablet Extended Release 12 Hr 1 tab PO BID Qty: 14 RF: 0 Referrals Referrals: Bravo Robles MD [Primary Care Provider] - Discharge Problem: Low back pain Qualifiers: Chronicity: acute Back pain laterality: midline Sciatica presence: without sciatica Qualified Code(s): M54.5 - Low back pain Fall Qualifiers: Encounter type: initial encounter Qualified Code(s): W19.XXXA - Unspecified fall, initial encounter CKD (chronic kidney disease) Qualifiers: Chronic kidney disease stage: unspecified stage Qualified Code(s): N18.9 - Chronic kidney disease, unspecified
[2020-07-16 00:13] LABS: BUN Creatinine Ratio 15.6 (10-20); Blood Urea Nitrogen 28 mg/dl (7-18); Calcium 9.1 mg/dl (8.5-10.1); Carbon Dioxide 29 mmol/L (21-32); Chloride 106 mmol/L (98-107); Creatinine Clr Calc Pharmacy 44.4 ml/min; Est GFR (African American) 46.4; Glucose 118 mg/dl (70-99); Sodium 140 mmol/L (136-145)
[2020-07-16] MEDS ORDERED: SODIUM CHLORIDE 0.9% 1000ML 500 ML IV ONE (00:17)
[2020-07-16 00:21] LABS: Potassium 4.2 mmol/L (3.5-5.1)
[2020-07-16 01:05] LABS: Basophils # (auto) 0.01 K/uL (0-0.2); Basophils % (auto) 0.1 %; Hematocrit (blood only) 40.4 % (42-52); Hemoglobin 14.3 g/dL (14.0-18.0); Immature Granulocytes # (auto) 0.02 K/uL (0.00-0.02); Immature Granulocytes % (auto) 0.3 %; Lymphocytes # (auto) 0.59 K/uL (1.2-3.4); Lymphocytes % (auto) 8.6 %; Mean Corpuscular Hemoglobin 30.5 pg (25-34); Mean Corpuscular Hgb Conc 35.4 g/dL (32-36); Mean Corpuscular Volume 86.1 fL (80-100); Mean Platelet Volume 12.2 fL (7.4-10.4); Monocytes # (auto) 0.91 K/uL (0.11-0.59); Monocytes % (auto) 13.2 %; Neutrophils # (auto) 5.36 K/uL (1.4-6.5); Neutrophils % (auto) 77.8 %; Platelet Count 166 K/uL (130-400); RDW Coefficient of Variation 13.2 % (11.5-14.5); RDW Standard Deviation 41.8 fL (36.4-46.3); Red Blood Count 4.69 M/uL (4.7-6.1); White Blood Count 6.89 K/uL (4.8-10.8)
--- NOTE | 2020-07-16 02:32 | History & Physical Report ---
Date of Service July 16, 2020 Assessment & Plan (1) Dizziness: ? Recurrent orthostasis 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 ARF on CKD DM1, reasonable control as of recent hemoglobin A1c of 8.3, in July 2020 Asymptomatic COVID-[address] PVD as per records hypertension, slightly elevated hyperlipidemia, on statin Rx OBS Medical telemetry Check orthostatic vitals Baseline UA Monitor creatinine response to IVF, hold home losartan until creatinine back to baseline Isolation precautions and supportive management for asymptomatic COVID-19 illness Basal insulin, ISS BG goal [id number], carb count coverage PT OT eval DVT prophylaxis with Heparin subcu Full code Text document was generated using Buffer voice recognition software. It may contain grammatical or spelling errors. Kindly contact undersigned for clarification of any documentation item in question. History of Present Illness Chief Complaint: Dizziness, fall from the toilet bowl Primary Care Provider: Bravo Robles MD History obtained from patient and records. Medical history significant for DM1, CVA on CT, PVD, hypertension, hyperlipidemia, CRI (baseline creatinine 1.6) Last confinement last week for orthostatic dizziness. No new stroke on work-up. Patient was on the commode last night when he experienced dizziness described as lightheadedness subsequently leading to fall off the commode. Patient could not get up. Denies headache, chest pain, S OB, cough symptoms. Achy low back pain. Patient brought to ER by EMS. Patient noted to have unstable gait as staff was preparing him for discharge. Covid 19 swab noted to be positive. Patient father currently admitted for COVID-19 illness. Medical History as above Surgical History : Toe amputation, cataract surgery, laser trabeculoplasty, vitrectomy, tympanostomy tube placement Family History : DM, HTN Personal/Social history : Non-smoker, occasional EtOH intake, disabled Allergies Allergy/AdvReac Type Severity Reaction Status Date / Time levofloxacin Allergy Unknown "nervous" Verified 07/15/20 23:54 shrimp AdvReac Unknown NAUSEA Verified 07/15/20 23:54 Home Medications Medication Instructions Recorded Confirmed Type amlodipine 5 mg PO QAM 10/19/18 07/15/20 History aspirin [Aspirin Low Dose] 81 mg PO QAM 10/19/18 07/15/20 History gabapentin 600 mg PO BID 10/19/18 07/15/20 History Lantus Solostar U-100 Insulin 35 unit SUBCUT QAM 08/28/20 01/15/21 History insulin aspart U-100 [Novolog 8 unit SUBCUT HS 02/26/20 07/15/20 History Flexpen U-100 Insulin] atorvastatin 40 mg PO HS #30 tab 07/08/20 07/15/20 Rx fexofenadine-pseudoephedrine 1 tab PO BID #14 tab 07/08/20 07/15/20 Rx [Merari-D 12 Hour] losartan 25 mg PO QAM #30 tab 07/08/20 07/15/20 Rx meclizine 25 mg PO Q8H PRN #15 tab 07/08/20 07/15/20 Rx Past Med/Surg History Medical History (Updated 07/16/20 @ 02:12 by Kwabena Quiroz MD) CKD (chronic kidney disease) stage 3, GFR 30-59 ml/min Diabetic neuropathy Difficult airway for intubation Glidescope 2012 DM type 1 (diabetes mellitus, type 1) History of heart block Patient presented to [facility] 03/2013 for elective L foot I&D. On induction with propofol in OR pt went into 3rd degree HB. Pt intubated and given 1 dose of Epi, which resolved HB but diffuse ST depression remained. Surgery aborted, pt to PACU, where ST segments returned to baseline and pt was extubated. Cardio consulted, echo WNL, no etiology discovered for HB, ST depression felt 2/2 strain from Epi or apnea. No further testing or intervention recommended. History of osteomyelitis HLD (hyperlipidemia) HTN (hypertension) Hyperlipidemia Osteomyelitis of left foot history of Pulmonary nodule PVD (peripheral vascular disease) Vertigo history of--hypoglycemia Surgical History H/O eye surgery both eyes, corrective lens implant History of colonoscopy 8 years ago S/P amputation of lesser toe "right second and third toe" Family History Brother Diabetes Social History Smoking Status: Never smoker Second Hand Exposure: No; Hx Alcohol Use: Yes Alcohol type: wine Alcohol Intake Frequency: 2-4 x/Month Hx Substance Use: No Preferred Language: Macedonian Communication Ability: Effective Table Games Dual Rate Supervisor Required: No Beliefs That Will Affect Care: None Current Living Situation: Family Current Living Situation Comment: brother and father Other Information That Helps Us Care for You: No Feels Safe at Home: Yes Safety Concerns: Feels Safe At This Time Assistive Devices: Glasses Review of Systems Review of Systems: As per HPI, all 10 systems reviewed, all other ROS negative Physical Exam Physical Exam: GENERAL: Comfortable, pleasant, episodic slurred speech, no respiratory distress SKIN: Normal color, warm HEENT: Alopecia, pink palpebral conjunctivae, no ptosis, dry buccal mucosa NECK : Supple, no tenderness CHEST : CTA, no tenderness HEART : RRR, no obvious murmurs ABDOMEN: Some distention, nontender BACK : Low back tenderness, negative straight leg raise test EXTREMITIES : No LE swelling/tenderness, toe amputation stumps NEUROLOGIC : Coherent, no facial asymmetry, episodic dysarthria, gait and stance not assessed Results & Data Results & Data ([facility]) Vital Signs (Past 12 Hours) Vital Signs Temp Pulse Resp BP Pulse Ox 07/16/20 02:00 20 143/72 H 97 07/16/20 01:30 20 148/71 H 95 07/16/20 00:34 82 20 149/81 H 94 07/15/20 23:30 83 24 148/66 H 98 07/15/20 23:15 37.2 C 85 20 151/73 H 97 07/15/20 23:14 82 16 151/73 H 98 Laboratory Results Laboratory Results WBC 6.89 K/uL (4.8-10.8) 07/16/20 00:49 RBC 4.69 M/uL (4.7-6.1) L 07/16/20 00:49 Hgb 14.3 g/dL (14.0-18.0) 07/16/20 00:49 Hct 40.4 % (42-52) L 07/16/20 00:49 MCV 86.1 fL (80-100) 07/16/20 00:49 MCH 30.5 pg (25-34) 07/16/20 00:49 MCHC 35.4 g/dL (32-36) 07/16/20 00:49 RDW Std Deviation 41.8 fL (36.4-46.3) 07/16/20 00:49 RDW Coeff of Дмитрий 13.2 % (11.5-14.5) 07/16/20 00:49 Plt Count 166 K/uL (130-400) 07/16/20 00:49 MPV 12.2 fL (7.4-10.4) H 07/16/20 00:49 Immature Gran % (Auto) 0.3 % 07/16/20 00:49 Neut % (Auto) 77.8 % 07/16/20 00:49 Lymph % (Auto) 8.6 % 07/16/20 00:49 Fajardo % (Auto) 13.2 % 07/16/20 00:49 Eos % (Auto) 0.0 % 07/16/20 00:49 Baso % (Auto) 0.1 % 07/16/20 00:49 Neut # (Auto) 5.36 K/uL (1.4-6.5) 07/16/20 00:49 Lymph # (Auto) 0.59 K/uL (1.2-3.4) L 07/16/20 00:49 Fajardo # (Auto) 0.91 K/uL (0.11-0.59) H 07/16/20 00:49 Eos # (Auto) 0.00 K/uL (0-0.5) 07/16/20 00:49 Baso # (Auto) 0.01 K/uL (0-0.2) 07/16/20 00:49 Immature Gran # (Auto) 0.02 K/uL (0.00-0.02) 07/16/20 00:49 Absolute Nucleated RBC Cancelled 07/15/20 23:30 Nucleated RBC % (auto) Cancelled 07/15/20 23:30 Neutrophils % (Manual) Cancelled 07/15/20 23:30 Band Neutrophils % Cancelled 07/15/20 23:30 Lymphocytes % (Manual) Cancelled 07/15/20 23:30 Prolymphocyte % Cancelled 07/15/20 23:30 Reactive Lymphs % (Man) Cancelled 07/15/20 23:30 Monocytes % (Manual) Cancelled 07/15/20 23:30 Eosinophils % (Manual) Cancelled 07/15/20 23:30 Basophils % (Manual) Cancelled 07/15/20 23:30 Metamyelocytes % (Man) Cancelled 07/15/20 23:30 Myelocytes % (Man) Cancelled 07/15/20 23:30 Promyelocytes % (Man) Cancelled 07/15/20 23:30 Blast Cells % (Manual) Cancelled 07/15/20 23:30 Plasma Cell % (Manual) Cancelled 07/15/20 23:30 Other Cells % Cancelled 07/15/20 23:30 Nucleated RBC % Cancelled 07/15/20 23:30 Neutrophils # (Manual) Cancelled 07/15/20 23:30 Band Neutrophils # Cancelled 07/15/20 23:30 Total Absolute Neuts Cancelled 07/15/20 23:30 Lymphocytes # (Manual) Cancelled 07/15/20 23:30 Prolymphocyte # Cancelled 07/15/20 23:30 Reactive Lymphs # Cancelled 07/15/20 23:30 Total Abs Lymphocytes Cancelled 07/15/20 23:30 Monocytes # (Manual) Cancelled 07/15/20 23:30 Eosinophils # (Manual) Cancelled 07/15/20 23:30 Basophils # (Manual) Cancelled 07/15/20 23:30 Metamyelocytes # (Man) Cancelled 07/15/20 23:30 Myelocytes # (Manual) Cancelled 07/15/20 23:30 Promyelocytes # (Man) Cancelled 07/15/20 23:30 Blast Cells # (Man) Cancelled 07/15/20 23:30 Plasma Cell # (Manual) Cancelled 07/15/20 23:30 Other Cells # Cancelled 07/15/20 23:30 Nucleated RBCs # (Man) Cancelled 07/15/20 23:30 Hypersegmented Neuts Cancelled 07/15/20 23:30 Hyposegmented Neuts Cancelled 07/15/20 23:30 Hypogranular Neuts Cancelled 07/15/20 23:30 Large Granular Lymphs Cancelled 07/15/20 23:30 # Lrg Granular Lymphs Cancelled 07/15/20 23:30 Hairy Cells Cancelled 07/15/20 23:30 Smudge Cells Cancelled 07/15/20 23:30 Toxic Granulation Cancelled 07/15/20 23:30 Toxic Vacuolation Cancelled 07/15/20 23:30 Dohle Bodies Cancelled 07/15/20 23:30 Nisa Rods Cancelled 07/15/20 23:30 Platelet Estimate Cancelled 07/15/20 23:30 Hypogranular Platelets Cancelled 07/15/20 23:30 Clumped Platelets Cancelled 07/15/20 23:30 Giant Platelets Cancelled 07/15/20 23:30 Platelet Satelliting Cancelled 07/15/20 23:30 RBC Morphology Cancelled 07/15/20 23:30 Polychromasia Cancelled 07/15/20 23:30 Hypochromasia Cancelled 07/15/20 23:30 Poikilocytosis Cancelled 07/15/20 23:30 Basophilic Stippling Cancelled 07/15/20 23:30 Anisocytosis Cancelled 07/15/20 23:30 Microcytosis Cancelled 07/15/20 23:30 Macrocytosis Cancelled 07/15/20 23:30 Spherocytes Cancelled 07/15/20 23:30 Pappenheimer Bodies Cancelled 07/15/20 23:30 Sickle Cells Cancelled 07/15/20 23:30 Target Cells Cancelled 07/15/20 23:30 Tear Drop Cells Cancelled 07/15/20 23:30 Ovalocytes Cancelled 07/15/20 23:30 Stomatocytes Cancelled 07/15/20 23:30 Parada-Hershey Bodies Cancelled 07/15/20 23:30 Echinocytes Cancelled 07/15/20 23:30 Acanthocytes (Spur) Cancelled 07/15/20 23:30 Rouleaux Cancelled 07/15/20 23:30 RBC Agglutinates Cancelled 07/15/20 23:30 Schistocytes Cancelled 07/15/20 23:30 RBC Morph Comment Cancelled 07/15/20 23:30 Sezary Cell Cancelled 07/15/20 23:30 Sodium 140 mmol/L (136-145) 07/15/20 23:30 Potassium 4.2 mmol/L (3.5-5.1) 07/15/20 23:30 Chloride 106 mmol/L (98-107) 07/15/20 23:30 Carbon Dioxide 29 mmol/L (21-32) 07/15/20 23:30 Anion Gap 5.0 (3-11) 07/15/20 23:30 BUN 28 mg/dl (7-18) H 07/15/20 23:30 Creatinine 1.78 mg/dl (0.6-1.4) H 07/15/20 23:30 Est Cr Clr Drug Dosing 44.4 ml/min 07/15/20 23:30 Est GFR ( Amer) 46.4 07/15/20 23:30 Est GFR (Non-Af Amer) 40.0 07/15/20 23:30 BUN/Creatinine Ratio 15.6 (10-20) 07/15/20 23:30 Glucose 118 mg/dl (70-99) H 07/15/20 23:30 Calcium 9.1 mg/dl (8.5-10.1) 07/15/20 23:30 Magnesium 2.0 mg/dl (1.8-2.4) 07/15/20 23:30 Specimen Hemolysis 07/15/20 23:30 COVID-19 Eval Order Covid19 IDNow [facility] 07/16/20 01:40 SARS-CoV-2, RNA, NAAT POSITIVE (NEGATIVE) A* 07/16/20 01:[address] head: No acute intracranial findings. No change in appearance of the brain. Lumbar spine x-ray read pending Chest x-ray as per my interpretation no congestion EKG as per my interpretation : Rate 80, NSR, normal axis, T wave flattening lateral leads
[2020-07-16 02:42] LABS: Creatine Kinase 94 U/L (39-308); Troponin I < 0.015 ng/ml (0-0.045)
[2020-07-16 03:03] LABS: Alanine Aminotransferase 37 U/L (12-78); Albumin Level 3.7 gm/dl (3.4-5.0); Alkaline Phosphatase 136 U/L (45-117); Aspartate Aminotransferase 21 U/L (15-37); Bilirubin,Total 0.4 mg/dl (0.2-1); Total Protein 6.7 gm/dl (6.4-8.2)
[2020-07-16 03:04] LABS: Bilirubin Direct 0.1 mg/dl (0-0.2)
[2020-07-16] MEDS ORDERED: GLUCOSE 10 TABS/TUBE PO PRN (04:20)
[2020-07-16] MEDS ORDERED: HYDROmorphone INJ 0.5 MG/0.5 ML SYR IV PRN (04:20)
[2020-07-16] MEDS ORDERED: traMADol HCL 50 MG TABLET PO PRN (04:20)
[2020-07-16] MEDS ORDERED: DEXTROSE 50% 50 ML SYRINGE IV PRN (04:20)
[2020-07-16] MEDS ORDERED: LACTATED RINGER'S 1,000 ML IV ONE (04:20)
[2020-07-16] MEDS ORDERED: CARBOHYDRATES FOR HYPOGLYCEMIA PO PRN (04:20)
[2020-07-16] MEDS ORDERED: ACETAMINOPHEN 325 MG TAB PO PRN (04:20)
[2020-07-16] MEDS ORDERED: GLUCOSE 40% GEL 15 GM TUBE PO PRN (04:20)
[2020-07-16] MEDS ORDERED: PROMETHAZINE HCL 6.25 MG in SODIUM CHLORIDE 0.9% 50 ML IV PRN (04:20)
[2020-07-16] MEDS ORDERED: GLUCAGON FOR INJ 1 MG VIAL SQ PRN (04:20)
[2020-07-16] MEDS: INSULIN ASPART 100 UNITS/ML 3 ML PEN SC SCH ×5 (05:22→21:04)
[2020-07-16] MEDS: HEPARIN SOD 5,000 UNIT/0.5 ML VIAL SQ SCH ×3 (05:24→21:04)
[2020-07-16] MEDS ORDERED: INSULIN GLARGINE SOLOSTAR 100 UNITS/ML 3 ML PEN SC ONE (06:00)
[2020-07-16] MEDS: amLODIPine BESYLATE 5 MG TAB PO SCH (06:35)
[2020-07-16 06:40] LABS: Basophils # (auto) 0.01 K/uL (0-0.2); Basophils % (auto) 0.2 %; Hematocrit (blood only) 39.6 % (42-52); Hemoglobin 13.5 g/dL (14.0-18.0); Immature Granulocytes # (auto) 0.01 K/uL (0.00-0.02); Immature Granulocytes % (auto) 0.2 %; Lymphocytes % (auto) 17.9 %; Mean Corpuscular Hemoglobin 29.7 pg (25-34); Mean Corpuscular Hgb Conc 34.1 g/dL (32-36); Mean Platelet Volume 12.3 fL (7.4-10.4); Monocytes # (auto) 0.58 K/uL (0.11-0.59); Neutrophils # (auto) 3.07 K/uL (1.4-6.5); Neutrophils % (auto) 68.7 %; Platelet Count 143 K/uL (130-400); RDW Standard Deviation 41.4 fL (36.4-46.3); Red Blood Count 4.55 M/uL (4.7-6.1); White Blood Count 4.47 K/uL (4.8-10.8)
[2020-07-16 07:11] LABS: BUN Creatinine Ratio 16.1 (10-20); Calcium 8.6 mg/dl (8.5-10.1); Creatinine Clr Calc Pharmacy 50.7 ml/min; Est GFR (African American) 54.4; Est GFR (Non-African American) 46.9
--- NOTE | 2020-07-16 08:22 | CT Scan Report ---
CT OF THE HEAD WITHOUT CONTRAST CLINICAL HISTORY: dizziness, gait instability COMPARISON STUDY: Head CT and CTA of the head February 17, 2020. MRI the brain July 05, 2020. CT DOSE: 788.63 mGycm TECHNIQUE: Helical axial images of the head were obtained without IV contrast. Automated exposure con trol was utilized for the study. A dose lowering technique was utilized adhering to the principles o f ALARA. FINDINGS: No acute intracranial hemorrhage, midline shift or mass effect is present. The ventricular system is stable. Basilar cisterns are patent. There are no extra-axial collections. White matter hyp odensities are unchanged. Note is again made of old lacunar infarcts within the right basal ganglia a nd the ender. The appearance of the brain is unchanged. IMPRESSION: No acute intracranial findings. No change in appearance of the brain. ACT 112: Negative or not required by law. Electronically signed by: Julien Donovan M.D. 07/16/2020 8:20 AM
[2020-07-16] MEDS: GABAPENTIN 300 MG CAP PO SCH ×2 (08:37→21:04)
[2020-07-16] MEDS: ASPIRIN 81 MG ECTAB PO SCH (08:37)
--- NOTE | 2020-07-16 08:49 | XRay Report ---
XR chest 1V portable CLINICAL HISTORY: renal failure COMPARISON STUDY: Chest CT February 17, 2020. FINDINGS: Lung volumes are normal. Lungs are clear. There is no pneumothorax or pleural effusion. Car diac size is normal. Mediastinal contours are normal. There is no evidence for pulmonary edema. Incid ental note is made of several old left rib fractures. IMPRESSION: No acute cardiopulmonary findings. ACT 112: Negative or not required by law. Electronically signed by: Julien Donovan M.D. 07/16/2020 8:48 AM
[2020-07-16] MEDS ORDERED: amLODIPine BESYLATE 5 MG TAB PO SCH (09:00)
--- NOTE | 2020-07-16 09:31 | XRay Report ---
LUMBAR SPINE 3 VIEWS HISTORY: Low back pain eval for fx COMPARISON: None. FINDINGS: There is no fracture. No subluxation. Disc spaces are preserved. IMPRESSION: No fracture or subluxation within the lumbar spine. ACT 112: Negative or not required by law. Electronically signed by: Efren Kenney M.D. 07/16/2020 9:29 AM
--- NOTE | 2020-07-16 18:39 | Hospitalist Progress Note ---
Date of Service July 16, 2020 Assessment & Plan (1) Dizziness: Pt was recently discharge for dizziness on 07/09/20 CT head showed no acute intracranial findings. No change in appearance of the brain. Continue meclizine prn PT/OT eval Fall precaution COVID 19 Asymptomatic CXR showed no acute cardiopulmonary findings. Does not meet criteria for decadron, remdesivir and plasma convalescent since pt saturated well on RA/asymptomatic Continue monitor CKD stage 3 Creatinine 1.7 on admission, Baseline creatinine 1.6 Received IVF Continue monitor BMP DM type 1 (diabetes mellitus, type 1) Most recent hgba1 8.2 on 07/21 Continue Lantus and Novolog sliding scale Continue monitor BS HTN (hypertension) Continue Amlodipine Monitor BP PVD (peripheral vascular disease): Continue ASA and Atorvastatin 40mg daily DVT prophylaxis on Lovenox subq CODE STATUS FULL CODE Admission and Anticipated Discharge Date Admission Date: July 16, 2020 Subjective Pt was seen and examined for follow up of dizziness. Lying in bed with no distress. Pt said that he feels ok He said that his dad is in the hospital for COVID 19 and his brother tested positive also for COVID 19. Denies any chest pain, palpitation, dizziness, fever and SOB Physical Exam Physical Exam: General- No acute distress Head- atraumatic Eyes- PERRL, EOMI, ENT- oropharynx clear Neck- supple, no JVD Lungs- clear to auscultation Heart- regular rhythm; no murmur Abdomen- normal bowel sounds, soft, nontender Extremities- no calf tenderness Neuro- alert, oriented x 3; PERRL, EOMI; no facial palsy; slow speech Skin- warm & dry Results & Data Results & [facility] ([facility]) Vital Signs (Past 12 Hours) Vital Signs Temp Pulse Pulse Resp BP BP Pulse Ox 07/16/20 17:41 77 07/16/20 15:01 37.0 C 81 16 155/79 H 95 07/16/20 13:20 37.2 C 74 18 132/74 95 07/16/20 08:00 84 07/16/20 07:16 37.1 C 84 19 162/78 H 94
[2020-07-16] MEDS ORDERED: ATORVASTATIN 40 MG TAB PO SCH (21:00)
--- NOTE | 2020-07-16 22:04 | Electrocardiogram Report ---
Test Reason : Blood Pressure : / mmHG Vent. Rate : 081 BPM Atrial Rate : 081 BPM P-R Int : 148 ms QRS Dur : 066 ms QT Int : 362 ms P-R-T Axes : 024 -01 062 degrees QTc Int : 420 ms Sinus rhythm with Premature atrial complexes Low voltage QRS Septal infarct , age undetermined Abnormal ECG When compared with ECG of 05-JUL-2020 11:43, Septal infarct is now Present Confirmed by Zion Schulz ([id number]) on 07/16/2020 10:04:10 PM Referred By: REFERRED SELF Confirmed By:Zion Schulz
[2020-07-17] MEDS ORDERED: LACTATED RINGER'S 1,000 ML IV ONE (01:05)
[2020-07-17] MEDS: HEPARIN SOD 5,000 UNIT/0.5 ML VIAL SQ SCH ×2 (06:02→13:33)
[2020-07-17 07:17] LABS: Calcium 8.8 mg/dl (8.5-10.1); Creatinine Clr Calc Pharmacy 53.4 ml/min; Est GFR (African American) 57.9; Potassium 4.1 mmol/L (3.5-5.1)
[2020-07-17] MEDS: amLODIPine BESYLATE 5 MG TAB PO SCH (08:47)
[2020-07-17] MEDS: ASPIRIN 81 MG ECTAB PO SCH (08:47)
[2020-07-17] MEDS: GABAPENTIN 300 MG CAP PO SCH (08:47)
[2020-07-17] MEDS: INSULIN ASPART 100 UNITS/ML 3 ML PEN SC SCH ×2 (08:48→12:30)
[2020-07-17] MEDS ORDERED: INSULIN GLARGINE SOLOSTAR 100 UNITS/ML 3 ML PEN SC SCH (09:00)
--- NOTE | 2020-07-17 13:17 | Hospitalist Progress Note ---
Date of Service July 17, 2020 Assessment & Plan (1) Dizziness: Pt was recently discharge for dizziness on 07/09/20 CT head showed no acute intracranial findings. No change in appearance of the brain. Continue meclizine prn Pt said that he has a walker at home, continue to encourage him to use it Fall precaution COVID 19 Asymptomatic CXR showed no acute cardiopulmonary findings. Does not meet criteria for decadron, remdesivir and plasma convalescent since pt saturated well on RA/asymptomatic Stable CKD stage 3 Creatinine 1.7 on admission, Baseline creatinine 1.6 Received IVF Creatinine 1.4 today Stable DM type 1 (diabetes mellitus, type 1) Most recent hgba1 8.2 on 07/21 Continue Lantus and Novolog sliding scale Continue monitor BS HTN (hypertension) Continue Amlodipine Monitor BP PVD (peripheral vascular disease): Continue ASA and Atorvastatin 40mg daily DVT prophylaxis on Lovenox subq CODE STATUS FULL CODE Disposition Will discharge home today Admission and Anticipated Discharge Date Admission Date: July 16, 2020 Subjective Pt was seen and examined for follow up of dizziness. Sitting at the edge of the bed with no distress. Pt said that he feels ok Denies any chest pain, palpitation, dizziness, fever, cough and SOB Physical Exam Physical Exam: General- No acute distress Head- atraumatic Eyes- PERRL, EOMI, ENT- oropharynx clear Neck- supple, no JVD Lungs- clear to auscultation Heart- regular rhythm; no murmur Abdomen- normal bowel sounds, soft, nontender Extremities- no calf tenderness Neuro- alert, oriented x 3; PERRL, EOMI; no facial palsy; slow speech Skin- warm & dry Results & Data Results & Data ([facility]) Vital Signs (Past 12 Hours) Vital Signs Temp Pulse Pulse Resp BP BP Pulse Ox 07/17/20 10:48 07/17/20 07:31 36.6 C 61 18 135/67 98 07/17/20 06:00 36.6 C 59 L 20 167/78 H 98 Pulse Ox 07/17/20 10:48 98 07/17/20 07:31 07/17/20 06:00
--- NOTE | 2020-07-18 09:36 | Discharge Summary ---
Date of Service July 17, 2020 Admission HPI Per Admitting Provider History obtained from patient and records. Medical history significant for DM1, CVA on CT, PVD, hypertension, hyperlipidemia, CRI (baseline creatinine 1.6) Last confinement last week for orthostatic dizziness. No new stroke on work-up. Patient was on the commode last night when he experienced dizziness described as lightheadedness subsequently leading to fall off the commode. Patient could not get up. Denies headache, chest pain, S OB, cough symptoms. Achy low back pain. Patient brought to ER by EMS. Patient noted to have unstable gait as staff was preparing him for discharge. Covid 19 swab noted to be positive. Patient father currently admitted for COVID-19 illness. Medical History as above Surgical History : Toe amputation, cataract surgery, laser trabeculoplasty, vitrectomy, tympanostomy tube placement Family History : DM, HTN Personal/Social history : Non-smoker, occasional EtOH intake, disabled Admission Exam Per Admitting Provider GENERAL: Comfortable, pleasant, episodic slurred speech, no respiratory distress SKIN: Normal color, warm HEENT: Alopecia, pink palpebral conjunctivae, no ptosis, dry buccal mucosa NECK : Supple, no tenderness CHEST : CTA, no tenderness HEART : RRR, no obvious murmurs ABDOMEN: Some distention, nontender BACK : Low back tenderness, negative straight leg raise test EXTREMITIES : No LE swelling/tenderness, toe amputation stumps NEUROLOGIC : Coherent, no facial asymmetry, episodic dysarthria, gait and stance not assessed Principal Diagnosis Dizziness COVID 19 Cdronic kidney Disease stage 3 DM type 1 (diabetes mellitus, type 1) HTN (hypertension) PVD (peripheral vascular disease): Discharge Exam General- No acute distress Head- atraumatic Eyes- PERRL, EOMI, ENT- oropharynx clear Neck- supple, no JVD Lungs- clear to auscultation Heart- regular rhythm; no murmur Abdomen- normal bowel sounds, soft, nontender Extremities- no calf tenderness Neuro- alert, oriented x 3; PERRL, EOMI; no facial palsy; slow speech Skin- warm & dry Discharge Data Allergies Allergy/AdvReac Type Severity Reaction Status Date / Time levofloxacin Allergy Unknown "nervous" Verified 07/15/20 23:54 shrimp AdvReac Unknown NAUSEA Verified 07/15/20 23:54 Consultations 07/16/20 01:26 ED Decision to Admit Stat 07/16/20 04:20 Consult Case Management - Discharge Planning Routine Ordered Studies 07/16/20 02:32 CT head/brain wo con Urgent CT OF THE HEAD WITHOUT CONTRAST CLINICAL HISTORY: dizziness, gait instability COMPARISON STUDY: Head CT and CTA of the head February 17, 2020. MRI the brain July 05, 2020. CT DOSE: 788.63 mGycm TECHNIQUE: Helical axial images of the head were obtained without IV contrast. Automated exposure control was utilized for the study. A dose lowering technique was utilized adhering to the principles of ALARA. FINDINGS: No acute intracranial hemorrhage, midline shift or mass effect is present. The ventricular system is stable. Basilar cisterns are patent. There are no extra-axial collections. White matter hypodensities are unchanged. Note is again made of old lacunar infarcts within the right basal ganglia and the ender. The appearance of the brain is unchanged. IMPRESSION: No acute intracranial findings. No change in appearance of the brain. ACT 112: Negative or not required by law. Electronically signed by: Julien Donovan M.D. 07/16/2020 8:20 AM Dictated: 07/16/20 0818Transcribed: 07/16/20 0818 XR chest 1V portable CLINICAL HISTORY: renal failure COMPARISON STUDY: Chest CT February 17, 2020. FINDINGS: Lung volumes are normal. Lungs are clear. There is no pneumothorax or pleural effusion. Cardiac size is normal. Mediastinal contours are normal. There is no evidence for pulmonary edema. Incidental note is made of several old left rib fractures. IMPRESSION: No acute cardiopulmonary findings. ACT 112: Negative or not required by law. Electronically signed by: Julien Donovan M.D. 07/16/2020 8:48 AM Dictated: 07/16/20 0847Transcribed: 07/16/20 0847 LUMBAR SPINE 3 VIEWS HISTORY: Low back pain eval for fx COMPARISON: None. FINDINGS: There is no fracture. No subluxation. Disc spaces are preserved. IMPRESSION: No fracture or subluxation within the lumbar spine. ACT 112: Negative or not required by law. Electronically signed by: Efren Kenney M.D. 07/16/2020 9:29 AM Dictated: 07/16/20 09Transcribed: 07/16/20927 Hospital Course (1) Dizziness: Pt was recently discharge for dizziness on 07/09/20 CT head showed no acute intracranial findings. No change in appearance of the brain. Continue meclizine prn Pt said that he has a walker at home, continue to encourage him to use it Fall precaution COVID 19 Asymptomatic CXR showed no acute cardiopulmonary findings. Does not meet criteria for decadron, remdesivir and plasma convalescent since pt saturated well on RA/asymptomatic Stable CKD stage 3 Creatinine 1.7 on admission, Baseline creatinine 1.6 Received IVF Creatinine 1.4 today Stable DM type 1 (diabetes mellitus, type 1) Most recent hgba1 8.2 on 07/21 Continue Lantus and Novolog sliding scale Continue monitor BS HTN (hypertension) Continue Amlodipine Monitor BP PVD (peripheral vascular disease): Continue ASA and Atorvastatin 40mg daily DVT prophylaxis on Lovenox subq CODE STATUS FULL CODE Disposition Will discharge home today Total Time Total Time Spent Total Time Spent (In Minutes): 35 minutes Total Time Includes: Examination of the Patient, Discharge Planning, Medication Reconciliation, Communication With Other Providers and Other Discharge Plan Discharge Items Patient Disposition: Home - Self-Care Reason For Visit: DIZZINESS Discharge Diagnosis: Dizziness COVID 19 Cdronic kidney Disease stage 3 DM type 1 (diabetes mellitus, type 1) HTN (hypertension) PVD (peripheral vascular disease): Activity: Resume your previous activity Non-emergency contact: Primary Care Provider Call non-emergency contact if: you have any medication questions and your temperature is above 101 Follow-up/Referrals: Bravo Robles MD [Primary Care Provider] - 07/20/20 3:20 pm Diet: Carb Consistent or DM2 Addtl Attending Provider Instructions: Follow up with your primary care provider Dr. Robles within 1 week (Office will call you for the appointment) Continue to use your walker to ambulate Continue to wear a mask Continue contact isolation for for a total 10 days. Continue monitor your blood sugar and bring your blood sugar log at your next appointment with your provider Fall precaution Home Isolation COVID-19 Instructions The following information about Home Isolation is from the CDC Website: https://www.cdc.gov/coronavirus/2019-ncov/hcp/ablniwxz-uhqydrc-wstdyp.html Stay home except to get medical care People who are mildly ill with COVID-19 are able to isolate at home during their illness. You should restrict activities outside your home, except for getting medical care. Do not go to work, school, or public areas. Avoid using public transportation, ride-sharing, or taxis. Separate yourself from other people and animals in your home People: As much as possible, you should stay in a specific room and away from other people in your home. Also, you should use a separate bathroom, if available. Animals: You should restrict contact with pets and other animals while you are sick with COVID-19, just like you would around other people. Although there have not been reports of pets or other animals becoming sick with COVID-19, it is still recommended that people sick with COVID-19 limit contact with animals until more information is known about the virus. When possible, have another member of your household care for your animals while you are sick. If you are sick with COVID-19, avoid contact with your pet, including petting, snuggling, being kissed or licked, and sharing food. If you must care for your pet or be around animals while you are sick, wash your hands before and after you interact with pets and wear a face mask. Call ahead before visiting your doctor If you have a medical appointment, call the healthcare provider and tell them that you have or may have COVID-19. This will help the healthcare providers office take steps to keep other people from getting infected or exposed. Wear a face mask You should wear a face mask when you are around other people (e.g., sharing a room or vehicle) or pets and before you enter a healthcare providers office. If you are not able to wear a face mask (for example, because it causes trouble breathing), then people who live with you should not stay in the same room with you, or they should wear a face mask if they enter your room. Cover your coughs and sneezes Cover your mouth and nose with a tissue when you cough or sneeze. Throw used tissues in a lined trash can. Immediately wash your hands with soap and water for at least 20 seconds or, if soap and water are not available, clean your hands with an alcohol-based hand director adult that contains at least 60% alcohol. Clean your hands often Wash your hands often with soap and water for at least 20 seconds, especially after blowing your nose, coughing, or sneezing; going to the bathroom; and before eating or preparing food. If soap and water are not readily available, use an alcohol-based hand director adult with at least 60% alcohol, covering all surfaces of your hands and rubbing them together until they feel dry. Soap and water are the best option if hands are visibly dirty. Avoid touching your eyes, nose, and mouth with unwashed hands. Avoid sharing personal household items You should not share dishes, drinking glasses, cups, eating utensils, towels, or bedding with other people or pets in your home. After using these items, they should be washed thoroughly with soap and water. Clean all high-touch surfaces everyday High touch surfaces include counters, tabletops, doorknobs, bathroom fixtures, toilets, phones, keyboards, tablets, and bedside tables. Also, clean any surfaces that may have blood, stool, or body fluids on them. Use a household cleaning spray or wipe, according to the label instructions. Labels contain instructions for safe and effective use of the cleaning product including precautions you should take when applying the product, such as wearing gloves and making sure you have good ventilation during use of the product. Monitor your symptoms Seek prompt medical attention if your illness is worsening (e.g., difficulty breathing).Beforeseeking care, call your healthcare provider and tell them that you have, or are being evaluated for, COVID-19. Put on a face mask before you enter the facility. These steps will help the healthcare providers office to keep other people in the office or waiting room from getting infected or exposed. Ask your healthcare provider to call the local or [facility] health department. Persons who are placed under active monitoring or facilitated self- monitoring should follow instructions provided by their local health department or occupational health professionals, as appropriate. When working with your local health department check their available hours. If you have a medical emergency and need to call 911, notify the dispatch personnel that you have, or are being evaluated for COVID-19. If possible, put on a face mask before emergency medical services arrive. Discontinuing home isolation Patients with confirmed COVID-19 should remain under home isolation precautions until the risk of secondary transmission to others is thought to be low. The decision to discontinue home isolation precautions should be made on a [id number] basis, in consultation with healthcare providers and [facility] and [facility] health departments. Coronavirus disease 2019 (COVID-19) is a virus that causes a respiratory illness. It is caused by a coronavirus called 2019 novel coronavirus (2019- nCoV). There are many types of coronavirus. Coronaviruses are a very common cause of bronchitis. They may sometimes cause lung infection(pneumonia). Symptoms can range from mild to severe respiratory illness. These viruses are also foundin some animals. COVID-19 was first found in people in [facility], in late 2019. In 2020, several cases of COVID-19 have been confirmed in the [place] Public health officials are working to find the source. How the virus spreads is not yet fully known. It may be spread through droplets of fluid that a person coughs or sneezes into the air. It may be spread if you touch a surface with virus on it, such as a handle or object, and then touch your mouth. What are the symptoms of COVID-19? Some people have no symptoms or mild symptoms. Symptoms may appear 2 to 14 days after contact with the virus. Symptoms can include: Fever Coughing Trouble breathing What are possible complications from COVID-19? In many cases, this virus can cause infection (pneumonia) in both lungs. In some cases, this can cause . How is COVID-19 diagnosed? Your healthcare provider will ask about your symptoms. He or she will also ask about your recent travel and contact with sick people. Testing for the virus is only done through the CDC. If yourhealthcare provider thinks you may have COVID- 19, he or she will work with your local health department and the CDC on testing. Follow all instructions from your healthcare provider. COVID-19 is diagnosed by: Nasal and throat swab. A cotton-tipped swab is wiped inside your nose or throat. This is done to check for viruses in your nasal mucus. Sputum culture. A small sample of mucus coughed from your lungs (sputum) is collected if you have a cough. It is checked for the virus. How is COVID-19 treated? There is currently no medicine to treat the virus. Treatment is done to help your body while it fights the virus. This is known as supportive care. Supportive care may include: Pain medicine. These include acetaminophen and ibuprofen. They are used to help ease pain and reduce fever. Bed rest. This helps your body fight the illness. For severe illness, you may need to stay in the hospital. Care during severe illness may include: IV (intravenous) fluids.These are given through a vein to help keep your body hydrated. Oxygen. Supplemental oxygen or ventilation with a breathing machine (ventilator) may be given. This is done to keep enough oxygen in your body. Are you at risk for COVID-19? If youve been to a place where people have been sick with this virus, you are at risk for infection. You are at risk if you: Recently traveled to an affected area Had contact with a sick person who recently traveled to this area Had contact with a person who was diagnosed with COVID-19 How can COVID-19 be prevented? There is no vaccine yet. The best prevention is to not have contact with the virus. The CDC advises that people should not travel to areas where there are COVID-19 outbreaks right now for any reason that is not urgent. To help prevent spreading the infection, wash your hands often, or use an alcohol-basedhand director adult. If you are in an area with COVID-19: Wash your hands often. Or use an alcohol-based hand director adult often. Only touch your eyes, nose, or mouth with clean hands. Dont have contact with people who are sick. Follow local instructions about being in public. For example, you may be told to not use public transport for a period of time. Stay away from markets that have live or animals. Wash your hands after touching any animals. Don't touch animals that may be sick. Dont share eating or drinking tools with sick people. Dont kiss someone who is sick. Clean surfaces often with disinfectant. If you were in an area with COVID-19 in the last 14 days: Call your healthcare provider. He or she can talk with local health staff to see what action may be needed. Follow all instructions from your provider. Take your temperature every morning and evening for at least 14 days. This is to check for fever. Keep a record of the readings. Keep watch for symptoms of the virus. Tell your provider right away if you have symptoms. If you were in an area with COVID-19 and have a fever or other symptoms: Dont panic. Keep in mind that other illnesses can cause similar symptoms. Stay away from work, school, and public places. Limit physical contact with family members. Don't kiss anyone or share eating or drinking utensils. Clean surfaces you touch with disinfectant. This is to help prevent the virus from spreading. Call your healthcare provider. Explain that you have been exposed to COVID-19 and have symptoms. Do this before going to any hospital. Wait for instructions. Keep in mind that healthcare staff may wear protective equipment such as masks, gowns, gloves, and eye protection. You may be put in a separate room. This is to prevent the possible virus from spreading. Tell the healthcare staff about recent travel. This includes local travel on public transport. Staff may need to find other people you have been in contact with. Follow all instructions the healthcare staff give you. If you have been diagnosed with COVID-19 Follow all instructions from your healthcare provider. Dont leave your home, except to get medical care. Call your healthcare providers office before going. They can prepare and give you instructions. This will help prevent the virus from spreading. Dont go to work, school, or public areas. Dont use public transport or taxis. Stay away from other people in your home. Have them wear face masks around you. Dont share household items or food. Wear a face mask if you can. This includes at home or in a medical facility. Cover your face with a tissue when you cough or sneeze. Throw the tissue away. Wash your hands. Wash your hands often. Caregivers should: Follow all instructions from healthcare staff. Wear a face mask and protective clothing as advised. Wash hands often. Keep track of the sick persons symptoms. Clean surfaces, fabrics, and laundry thoroughly. Keep other people away from the sick person. When to call your healthcare provider Call your healthcare provider: If youve recently traveled and have symptoms If you have been diagnosed with COVID-19 and your symptoms are worse To learn more To find out more about COVID-19, visit the CDC website at www.cdc.gov/coronavirus/2019-ncov/index.html. [employer]. [address] [place] [address], [place] [address]. All rights reserved. This information is not intended as a substitute for professional medical care. Always follow your healthcare professional's instructions. This information has been adapted from [employer] Pending Studies at Discharge: No Stand-Alone Forms: My [facility] [employer], Smoking Cessation Medications and DC Order Prescriptions: Continued amlodipine 5 mg tablet 5 mg PO QAM RF: 0 aspirin [Aspirin Low Dose] 81 mg Tablet,Delayed Release (Dr/Ec) 81 mg PO QAM RF: 0 gabapentin 300 mg capsule 600 mg PO BID RF: 0 insulin aspart U-100 [Novolog Flexpen U-100 Insulin] 100 unit/mL (3 mL) insulin pen 8 unit subcut HS RF: 0 Lantus Solostar U-100 Insulin 100 unit/mL (3 mL) insulin pen 35 unit SUBCUT QAM RF: 0 atorvastatin 40 mg Tablet 40 mg PO HS Qty: 30 RF: 0 meclizine 25 mg Tablet 25 mg PO Q8H PRN (Reason: dizziness) Qty: 15 RF: 0 losartan 25 mg Tablet 25 mg PO QAM Qty: 30 RF: 0 fexofenadine-pseudoephedrine [Merari-D 12 Hour] 60-120 mg Tablet Extended Release 12 Hr 1 tab PO BID Qty: 14 RF: 0 Discharge Orders: Discharge Order (Routine); Ordered 07/17/20 Ordered By: Alen Gambino/Other Patient Handouts: COVID-19 Home Care Admission Data Admit Date/Time: 07/16/20 02:34 Attending Provider: Alen Dia Admit Provider: Ulisses Li Primary Care Provider: Bravo Robles Other Providers: Ulisses Li Other Interventions: Discharge Summary Assessment (RN) Last Done: 07/17/20 14:06
== END 2020-07-17 14:42 | disposition home or self-care (01) ==
LOC: ED 23:10 → 2S 23:10

== ENCOUNTER 2020-12-18 16:24 | Observation (INO) ==
[2020-12-18] MEDS ORDERED: SODIUM CHLORIDE 0.9% 500 ML IV ONE (17:08)
--- NOTE | 2020-12-18 17:15 | Emergency Department Note ---
History of Present Illness General Chief complaint: Dizziness Stated complaint: DIZZY,SLEEPY,SOMEWHAT WEAK Time Seen by Provider: 12/18/20 16:58 Source: patient Mode of arrival: ambulatory Limitations: no limitations History of Present Illness Maximum Pain Intensity: 0 This patient is a 65-year-old male who comes in after feeling tired and weak diffusely. He has felt this way since at least . He is fell several times on and Saturday. There is nothing different about today just feels weak when he tries to walk. He says his dizziness is more of a weakness he is not having spinning. He said no blood or melena stool. No chest pain or shortness of breath. He is a diabetic but lost his glucometer so he is not sure what his blood sugars have been running. He is not on any blood thinners. He had no nausea vomiting diarrhea. Denies headache neck pain or stiffness he does not think he hit his head. No change in vision. No difficulty speaking or swallowing. His brother says that he has had no confusion or altered mental status. No fever. No cough or shortness of breath. He has had the Covid vaccine as well as Covid disease last year. No abdominal or back pain. No change in bowel or bladder function. No dysuria or hematuria. Home Medications Medication Instructions Recorded Confirmed Type amlodipine 5 mg PO QAM 10/19/18 12/18/20 History aspirin [Aspirin Low Dose] 81 mg PO QAM 10/19/18 12/18/20 History gabapentin 600 mg PO BID 10/19/18 12/18/20 History Lantus Solostar U-100 Insulin 35 unit SUBCUT QAM 02/26/20 12/18/20 History insulin aspart U-100 [Novolog 8 unit SUBCUT HS 02/26/20 12/18/20 History Flexpen U-100 Insulin] atorvastatin 40 mg PO HS #30 tab 07/08/20 12/18/20 Rx fexofenadine-pseudoephedrine 1 tab PO BID #14 tab 07/08/20 12/18/20 Rx [Merari-D 12 Hour] losartan 25 mg PO QAM #30 tab 07/08/20 12/18/20 Rx meclizine 25 mg PO Q8H PRN #15 tab 07/08/20 12/18/20 Rx Pj Hose #1 ea 12/19/20 Rx Allergies Allergy/AdvReac Type Severity Reaction Status Date / Time levofloxacin Allergy Unknown "nervous" Verified 12/18/20 16:57 shrimp AdvReac Unknown NAUSEA Verified 12/18/20 16:57 Past Med/Surg History Medical History (Updated 12/22/20 @ 10:25 by Bradley Baker MD) Ambulatory dysfunction CKD (chronic kidney disease) CKD (chronic kidney disease) stage 3, GFR 30-59 ml/min COVID-19 Diabetic neuropathy Difficult airway for intubation Glidescope 2012 Dizziness DM type 1 (diabetes mellitus, type 1) Fall History of heart block Patient presented to [facility] 03/2013 for elective L foot I&D. On induction with propofol in OR pt went into 3rd degree HB. Pt intubated and given 1 dose of Epi, which resolved HB but diffuse ST depression remained. Surgery aborted, pt to PACU, where ST segments returned to baseline and pt was extubated. Ca rdio consulted, echo WNL, no etiology discovered for HB, ST depression felt 2/2 strain from Epi or apnea. No further testing or intervention recommended. History of osteomyelitis HLD (hyperlipidemia) HTN (hypertension) Hyperlipidemia Low back pain Osteomyelitis of left foot history of Pulmonary nodule PVD (peripheral vascular disease) Vertigo history of--hypoglycemia Surgical History H/O eye surgery both eyes, corrective lens implant History of colonoscopy 8 years ago S/P amputation of lesser toe "right second and third toe" Family History Brother Diabetes Social History Smoking Status: Never smoker Second Hand Exposure: No; Hx Alcohol Use: Yes Alcohol type: wine Alcohol Intake Frequency: 2-4 x/Month Hx Substance Use: No Preferred Language: Indonesian Communication Ability: Effective Radiation Technician Required: No Beliefs That Will Affect Care: None Current Living Situation: Family Current Living Situation Comment: brother Feels Safe at Home: Yes Safety Concerns: Feels Safe At This Time Assistive Devices: None Review of Systems A total of 10 systems reviewed and were otherwise negative Physical Exam Vital Signs Vital Signs - 24 hr 12/18/20 16:38 Temperature 36.3 C L Temperature Source Temporal Artery Scan Pulse Rate 61 Pulse Rhythm Regular Pulse Strength Normal Respiratory Rate 16 Respiratory Effort / Characteristics Non-Labored Respiratory Depth Normal Respiratory Pattern Regular Blood Pressure 146/74 H Blood Pressure Mean 98 Blood Pressure Position Sitting Pulse Oximetry 99 Oxygen Delivery Method Room Air Sepsis Recent Fever Within 48 Hours No Sepsis New/Unexplained Change in Mental Status N/A Sepsis Action Taken by Nursing No Action Required General: Well developed well nourished middle-age male who in no acute distress, breathing comfortably on room air. Normal speech HEENT: Normal cephalic atraumatic. Pupils are equal round and reactive to light. Extraocular movements are intact. Oropharynx is pink with moist mucous membranes. No swelling of the mouth lips or tongue. Neck: Supple with a midline trachea. No meningeal signs or stiffness, no JVD or bruits. No Stridor. Neck is freely mobile and has negative Kernig and Brezinski signs Chest: Clear to auscultation bilaterally. No wheezes or rhonchi. No increased work of breathing. Heart: Regular rate and rhythm without murmurs or gallops. Abdomen: Soft nontender, nondistended without rebound guarding or rigidity. Extremities: No cyanosis clubbing or edema. No calf tenderness or assymetry Spine/Back. Non tender to palpation. No CVA tenderness Skin: Good turgor without rashes. Neurologic exam: Cranial nerves two through 12 are intact. Motor and sensation are intact and symmetrical throughout. Finger-nose intact. No tremor. No pronator drift. Course Administered Medications Discontinued Medications Amlodipine Besylate (Amlodipine Besylate 5 Mg Tab) 5 mg PO QAM [facility] Stop: 01/18/21 08:59 Last Admin: 12/19/20 07:25 Dose: 5 mg Documented by: [id number] Aspirin (Aspirin 81 Mg Ectab) 81 mg PO QAM [facility] Stop: 01/18/21 08:59 Last Admin: 12/19/20 07:25 Dose: 81 mg Documented by: [id number] Atorvastatin Calcium (Atorvastatin 40 Mg Tab) 40 mg PO HS [facility] Stop: 01/17/21 22:00 Last Admin: 12/18/20 23:04 Dose: 40 mg Documented by: [id number] Heparin Sodium (Porcine) (Heparin Sod 5,000 Unit/0.5 Ml Vial) 5,000 units SQ Q8 [facility] Stop: 01/17/21 22:29 Last Admin: 12/19/20 13:32 Dose: 5,000 units Documented by: [id number] Admin: 12/19/20 05:39 Dose: 5,000 units Documented by: [id number] Admin: 12/18/20 23:05 Dose: Not Given Documented by: [id number] Admin: 12/18/20 23:02 Dose: 5,000 units Documented by: [id number] Sodium Chloride (Nss) 500 mls @ 999 mls/hr IV .Q31M ONE Stop: 12/18/20 17:38 Last Infusion: 12/18/20 19:23 Dose: 0 mls/hr Documented by: [id number] Admin: 12/18/20 17:53 Dose: 999 mls/hr Documented by: [id number] Sodium Chloride (Nss 1000ml) 1,000 mls @ 200 mls/hr IV .Q5H ONE Stop: 12/19/20 00:34 Last Infusion: 12/19/20 01:05 Dose: 0 mls/hr Documented by: [id number] Admin: 12/18/20 19:43 Dose: 200 mls/hr Documented by: [id number] Sodium Chloride (1/2 Nss) 1,000 mls @ 60 mls/hr IV .[id number] ONE Stop: 12/19/20 17:14 Last Admin: 12/19/20 01:03 Dose: 60 mls/hr Documented by: [id number] Insulin Aspart (Insulin Aspart 100 Units/Ml 3 Ml Pen) 0 units SC ACHS [place] Stop: 01/17/21 22:29 Last Admin: 12/19/20 12:07 Dose: 3 units Documented by: [id number] Cosigned by: [id number] Admin: 12/19/20 08:50 Dose: 2 units Documented by: [id number] Cosigned by: [id number] Admin: 12/18/20 23:05 Dose: Not Given Documented by: [id number] Admin: 12/18/20 23:03 Dose: 9 units Documented by: [id number] Cosigned by: [id number] Insulin Glargine (Insulin Glargine Solostar 100 Units/Ml 3 Ml Pen) 20 units SC NOW STA Stop: 12/18/20 19:40 Last Admin: 12/18/20 20:17 Dose: 20 units Documented by: [id number] Cosigned by: [id number] Insulin Glargine (Insulin Glargine Solostar 100 Units/Ml 3 Ml Pen) 40 units SQ QAM [place] Stop: 01/18/21 08:59 Last Admin: 12/19/20 08:51 Dose: 40 units Documented by: [id number] Cosigned by: [id number] Insulin Human Regular (Novolin-R Insulin Per Unit Charge) 5 units IV NOW STA Stop: 12/18/20 18:25 Last Admin: 12/18/20 19:21 Dose: 5 units Documented by: [id number] Cosigned by: [id number] Medical Decision Making Differential Diagnosis Diabetic complication, CVA, intracranial hemorrhage, anemia, sepsis, cardiac disease, arrhythmia, electrolyte or metabolic abnormality, dehydration, Covid Medical Records Attestation: I reviewed the patient's medical records. Home Medications Current Medication List: was personally reviewed by me Laboratory Data Result diagrams: 12/19/20 06:46 12/19/20 06:46 Lab Results 12/18/20 12/18/20 12/18/20 Range/Units 17:33 17:33 17:33 WBC 5.09 (4.8-10.8) K/uL RBC 5.08 (4.7-6.1) M/uL Hgb 15.6 (14.0-18.0) g/dL Hct 44.8 (42-52) % MCV 88.2 (80-100) fL MCH 30.7 (25-34) pg MCHC 34.8 (32-36) g/dL RDW Std Deviation 41.8 (36.4-46.3) fL RDW Coeff of Дмитрий 12.9 (11.5-14.5) % Plt Count 223 (130-400) K/uL MPV 11.4 H (7.4-10.4) fL Immature Gran % (Auto) 0.6 % Neut % (Auto) 65.4 % Lymph % (Auto) 24.0 % [place] % (Auto) 8.6 % Eos % (Auto) 1.2 % Baso % (Auto) 0.2 % Neut # (Auto) 3.33 (1.4-6.5) K/uL Lymph # (Auto) 1.22 (1.2-3.4) K/uL [place] # (Auto) 0.44 (0.11-0.59) K/uL Eos # (Auto) 0.06 (0-0.5) K/uL Baso # (Auto) 0.01 (0-0.2) K/uL Immature Gran # (Auto) 0.03 H (0.00-0.02) K/uL PT (9.0-12.0) Seconds INR (0.9-1.1) APTT (21.0-31.0) Seconds PTT Ratio Sodium (136-145) mmol/L Potassium (3.5-5.1) mmol/L Chloride (98-107) mmol/L Carbon Dioxide (21-32) mmol/L Anion Gap (3-11) BUN (7-18) mg/dl Creatinine (0.6-1.4) mg/dl Est Cr Clr Drug Dosing Est GFR ( Amer) ml/min Est GFR (Non-Af Amer) ml/min BUN/Creatinine Ratio (10-20) Glucose (70-99) mg/dl POC Glucose (70-99) mg/dl Lactate (0.4-2.0) mmol/L Calcium (8.5-10.1) mg/dl Magnesium (1.8-2.4) mg/dl Total Bilirubin (0.2-1) mg/dl AST (15-37) U/L ALT (12-78) U/L Alkaline Phosphatase (45-117) U/L Troponin I (0-0.045) ng/ml Total Protein (6.4-8.2) gm/dl Albumin (3.4-5.0) gm/dl Globulin (2.5-4.0) gm/dl Albumin/Globulin Ratio (0.9-2) Beta-Hydroxybutyric Acd (0.2-2.81) mg/dl Procalcitonin < 0.05 (0-0.5) ng/ml Urine Color Urine Appearance (Clear) Urine pH (4.5-7.5) Ur Specific [place] (1.000-1.030) Urine Protein (Negative) Urine Glucose (UA) (Negative) Urine Ketones (Negative) Urine Blood (Negative) Urine Nitrite (Negative) Urine Bilirubin (Negative) Urine Urobilinogen (Negative) Ur Leukocyte Esterase (Negative) Urine WBC (Auto) (0-5) /hpf Urine RBC (Auto) (0-4) /hpf U Hyaline Cast (Auto) (0-5) /lpf U Epithel Cells (Auto) (0-5) /lpf Urine Bacteria (Auto) (Negative) Anaplasma Smear See Comment A. phagocytophilum DNA Not Detected (Not Detected) Lyme Disease IgG Ab Negative (Negative) Lyme Disease IgM Ab Negative (Negative) COVID-19 Eval Order SARS-CoV-2 (PCR) (Negative) 12/18/20 12/18/20 12/18/20 Range/Units 17:33 17:33 17:33 WBC (4.8-10.8) K/uL RBC (4.7-6.1) M/uL Hgb (14.0-18.0) g/dL Hct (42-52) % MCV (80-100) fL MCH (25-34) pg MCHC (32-36) g/dL RDW Std Deviation (36.4-46.3) fL RDW Coeff of Дмитрий (11.5-14.5) % Plt Count (130-400) K/uL MPV (7.4-10.4) fL Immature Gran % (Auto) % Neut % (Auto) % Lymph % (Auto) % [place] % (Auto) % Eos % (Auto) % Baso % (Auto) % Neut # (Auto) (1.4-6.5) K/uL Lymph # (Auto) (1.2-3.4) K/uL [place] # (Auto) (0.11-0.59) K/uL Eos # (Auto) (0-0.5) K/uL Baso # (Auto) (0-0.2) K/uL Immature Gran # (Auto) (0.00-0.02) K/uL PT 10.9 (9.0-12.0) Seconds INR 1.1 (0.9-1.1) APTT 25.7 (21.0-31.0) Seconds PTT Ratio 1.0 Sodium 137 (136-145) mmol/L Potassium 4.9 (3.5-5.1) mmol/L Chloride 104 (98-107) mmol/L Carbon Dioxide 28 (21-32) mmol/L Anion Gap 5.0 (3-11) BUN 34 H (7-18) mg/dl Creatinine 2.29 H (0.6-1.4) mg/dl Est Cr Clr Drug Dosing Not Reportable Est GFR ( Amer) 33.9 ml/min Est GFR (Non-Af Amer) 29.3 ml/min BUN/Creatinine Ratio 15.0 (10-20) Glucose 409 H* (70-99) mg/dl POC Glucose (70-99) mg/dl Lactate 1.0 (0.4-2.0) mmol/L Calcium 9.2 (8.5-10.1) mg/dl Magnesium 2.2 (1.8-2.4) mg/dl Total Bilirubin 0.5 (0.2-1) mg/dl AST 12 L (15-37) U/L ALT 30 (12-78) U/L Alkaline Phosphatase 105 (45-117) U/L Troponin I < 0.015 (0-0.045) ng/ml Total Protein 7.1 (6.4-8.2) gm/dl Albumin 3.7 (3.4-5.0) gm/dl Globulin 3.4 (2.5-4.0) gm/dl Albumin/Globulin Ratio 1.1 (0.9-2) Beta-Hydroxybutyric Acd 1.39 (0.2-2.81) mg/dl Procalcitonin (0-0.5) ng/ml Urine Color Urine Appearance (Clear) Urine pH (4.5-7.5) Ur Specific [place] (1.000-1.030) Urine Protein (Negative) Urine Glucose (UA) (Negative) Urine Ketones (Negative) Urine Blood (Negative) Urine Nitrite (Negative) Urine Bilirubin (Negative) Urine Urobilinogen (Negative) Ur Leukocyte Esterase (Negative) Urine WBC (Auto) (0-5) /hpf Urine RBC (Auto) (0-4) /hpf U Hyaline Cast (Auto) (0-5) /lpf U Epithel Cells (Auto) (0-5) /lpf Urine Bacteria (Auto) (Negative) Anaplasma Smear A. phagocytophilum DNA (Not Detected) Lyme Disease IgG Ab (Negative) Lyme Disease IgM Ab (Negative) COVID-19 Eval Order SARS-CoV-2 (PCR) (Negative) 12/18/20 12/18/20 12/18/20 Range/Units 17:33 17:53 17:53 WBC (4.8-10.8) K/uL RBC (4.7-6.1) M/uL Hgb (14.0-18.0) g/dL Hct (42-52) % MCV (80-100) fL MCH (25-34) pg MCHC (32-36) g/dL RDW Std Deviation (36.4-46.3) fL RDW Coeff of Дмитрий (11.5-14.5) % Plt Count (130-400) K/uL MPV (7.4-10.4) fL Immature Gran % (Auto) % Neut % (Auto) % Lymph % (Auto) % [place] % (Auto) % Eos % (Auto) % Baso % (Auto) % Neut # (Auto) (1.4-6.5) K/uL Lymph # (Auto) (1.2-3.4) K/uL [place] # (Auto) (0.11-0.59) K/uL Eos # (Auto) (0-0.5) K/uL Baso # (Auto) (0-0.2) K/uL Immature Gran # (Auto) (0.00-0.02) K/uL PT (9.0-12.0) Seconds INR (0.9-1.1) APTT (21.0-31.0) Seconds PTT Ratio Sodium (136-145) mmol/L Potassium (3.5-5.1) mmol/L Chloride (98-107) mmol/L Carbon Dioxide (21-32) mmol/L Anion Gap (3-11) BUN (7-18) mg/dl Creatinine (0.6-1.4) mg/dl Est Cr Clr Drug Dosing Est GFR ( Amer) ml/min Est GFR (Non-Af Amer) ml/min BUN/Creatinine Ratio (10-20) Glucose (70-99) mg/dl POC Glucose (70-99) mg/dl Lactate (0.4-2.0) mmol/L Calcium (8.5-10.1) mg/dl Magnesium (1.8-2.4) mg/dl Total Bilirubin (0.2-1) mg/dl AST (15-37) U/L ALT (12-78) U/L Alkaline Phosphatase (45-117) U/L Troponin I (0-0.045) ng/ml Total Protein (6.4-8.2) gm/dl Albumin (3.4-5.0) gm/dl Globulin (2.5-4.0) gm/dl Albumin/Globulin Ratio (0.9-2) Beta-Hydroxybutyric Acd (0.2-2.81) mg/dl Procalcitonin Cancelled (0-0.5) ng/ml Urine Color Urine Appearance (Clear) Urine pH (4.5-7.5) Ur Specific [place] (1.000-1.030) Urine Protein (Negative) Urine Glucose (UA) (Negative) Urine Ketones (Negative) Urine Blood (Negative) Urine Nitrite (Negative) Urine Bilirubin (Negative) Urine Urobilinogen (Negative) Ur Leukocyte Esterase (Negative) Urine WBC (Auto) (0-5) /hpf Urine RBC (Auto) (0-4) /hpf U Hyaline Cast (Auto) (0-5) /lpf U Epithel Cells (Auto) (0-5) /lpf Urine Bacteria (Auto) (Negative) Anaplasma Smear A. phagocytophilum DNA (Not Detected) Lyme Disease IgG Ab (Negative) Lyme Disease IgM Ab (Negative) COVID-19 Eval Order Covid19 at [facility] SARS-CoV-2 (PCR) NEGATIVE (Negative) 12/18/20 12/18/20 Range/Units 19:38 20:19 WBC (4.8-10.8) K/uL RBC (4.7-6.1) M/uL Hgb (14.0-18.0) g/dL Hct (42-52) % MCV (80-100) fL MCH (25-34) pg MCHC (32-36) g/dL RDW Std Deviation (36.4-46.3) fL RDW Coeff of Дмитрий (11.5-14.5) % Plt Count (130-400) K/uL MPV (7.4-10.4) fL Immature Gran % (Auto) % Neut % (Auto) % Lymph % (Auto) % [place] % (Auto) % Eos % (Auto) % Baso % (Auto) % Neut # (Auto) (1.4-6.5) K/uL Lymph # (Auto) (1.2-3.4) K/uL [place] # (Auto) (0.11-0.59) K/uL Eos # (Auto) (0-0.5) K/uL Baso # (Auto) (0-0.2) K/uL Immature Gran # (Auto) (0.00-0.02) K/uL PT (9.0-12.0) Seconds INR (0.9-1.1) APTT (21.0-31.0) Seconds PTT Ratio Sodium (136-145) mmol/L Potassium (3.5-5.1) mmol/L Chloride (98-107) mmol/L Carbon Dioxide (21-32) mmol/L Anion Gap (3-11) BUN (7-18) mg/dl Creatinine (0.6-1.4) mg/dl Est Cr Clr Drug Dosing Est GFR ( Amer) ml/min Est GFR (Non-Af Amer) ml/min BUN/Creatinine Ratio (10-20) Glucose (70-99) mg/dl POC Glucose 158 H (70-99) mg/dl Lactate (0.4-2.0) mmol/L Calcium (8.5-10.1) mg/dl Magnesium (1.8-2.4) mg/dl Total Bilirubin (0.2-1) mg/dl AST (15-37) U/L ALT (12-78) U/L Alkaline Phosphatase (45-117) U/L Troponin I (0-0.045) ng/ml Total Protein (6.4-8.2) gm/dl Albumin (3.4-5.0) gm/dl Globulin (2.5-4.0) gm/dl Albumin/Globulin Ratio (0.9-2) Beta-Hydroxybutyric Acd (0.2-2.81) mg/dl Procalcitonin (0-0.5) ng/ml Urine Color Yellow Urine Appearance Clear (Clear) Urine pH 5.0 (4.5-7.5) Ur Specific [place] 1.024 (1.000-1.030) Urine Protein Trace H (Negative) Urine Glucose (UA) 3+ H (Negative) Urine Ketones Negative (Negative) Urine Blood Negative (Negative) Urine Nitrite Negative (Negative) Urine Bilirubin Negative (Negative) Urine Urobilinogen Negative (Negative) Ur Leukocyte Esterase Negative (Negative) Urine WBC (Auto) 0 (0-5) /hpf Urine RBC (Auto) 0-4 (0-4) /hpf U Hyaline Cast (Auto) 0 (0-5) /lpf U Epithel Cells (Auto) 0-5 (0-5) /lpf Urine Bacteria (Auto) Negative (Negative) Anaplasma Smear A. phagocytophilum DNA (Not Detected) Lyme Disease IgG Ab (Negative) Lyme Disease IgM Ab (Negative) COVID-19 Eval Order SARS-CoV-2 (PCR) (Negative) Imaging Data Attestation: I personally reviewed and interpreted this imaging study as follows: Radiologist's Impression: Chest X-Ray 12/18/20 17:08 XR chest 1V portable HISTORY: SEPSIS COMPARISON: Chest 07/16/2020. FINDINGS: The lungs are clear. The heart is borderline enlarged. This remains unchanged. No pleural effusions. No pneumothorax. Old, healed left-sided rib fractures are again noted. IMPRESSION: No significant change compared to the prior study. No acute process. ACT 112: Negative or not required by law. Electronically signed by: Efren Kenney M.D. 12/18/2020 5:40 PM ECG Data Attestation: I personally reviewed and interpreted this ECG as follows: Indication: + weakness Rate (beats per minute): 62 Rhythm: + normal sinus ECG Intervals/blocks: + Normal QRS, + Normal QT and + Normal [place] ECG [place]: + Normal ECG ST segments: + Normal ST segments ECG Findings: no PACs and no PVCs Comparison ECG Date: no prior available MDM Narrative This patient comes in after feeling generally fatigued. He has stable vital signs. Looks medical history including diabetes he may have had a stroke in the past he also had episode of heart block was given propofol. His initial blood pressure is stable. I have asked established and he was hydratedwith normal saline bolus I did extensive work-up to evaluate him for infectious, cardiac, neurologic and other etiologies. Think is likely Covid as he has had the disease and the vaccine but he was Covid tested as well. CAT scan of the head was obtained multiple blood tests and urinalysis and culture were obtained as well. He was reassessed frequently. His blood sugar came back significantly elevated at over 400 however he is not acidotic. His BUN and creatinine are also elevated I think he is likely dry from this. He was treated with IV fluids. He was also given regular insulin 5 units. EKG does not show any ischemic changes or ectopy. Given the patient's falls and hyperglycemia and dehydration, I do think he needs to be admitted/observed has consulted the [facility]ist for these measures. Continuous cardiac monitoring: Orders placed in EMR for continuous cardiac monitoring. Impression & Plan Weakness, DM type 1 (diabetes mellitus, type 1), Acute hyperglycemia, Falls frequently, Lab test negative for COVID-19 virus Discharge Plan Visit Data Chief Complaint: Dizziness Stated Complaint: DIZZY,SLEEPY,SOMEWHAT WEAK ED Provider: Bradley Baker Discharge Problem: Weakness, DM type 1 (diabetes mellitus, type 1), Acute hyperglycemia, Falls frequently, Lab test negative for COVID-19 virus Patient Disposition: Admitted As Inpatient Condition: Fair Discharge Instructions Interventions: ED Discharge Assessment Last Done: 12/18/20 21:14 Discharge Problem: DM type 1 (diabetes mellitus, type 1) Qualifiers: Diabetes mellitus complication status: without complication Qualified Code(s): E10.9 - Type 1 diabetes mellitus without complications
--- NOTE | 2020-12-18 17:41 | XRay Report ---
XR chest 1V portable HISTORY: SEPSIS COMPARISON: Chest 07/16/2020. FINDINGS: The lungs are clear. The heart is borderline enlarged. This remains unchanged. No pleural e ffusions. No pneumothorax. Old, healed left-sided rib fractures are again noted. IMPRESSION: No significant change compared to the prior study. No acute process. ACT 112: Negative or not required by law. Electronically signed by: Efren Kenney M.D. 12/18/2020 5:40 PM
[2020-12-18 17:45] LABS: Basophils # (auto) 0.01 K/uL (0-0.2); Basophils % (auto) 0.2 %; Eosinophils # (auto) 0.06 K/uL (0-0.5); Eosinophils % (auto) 1.2 %; Hematocrit (blood only) 44.8 % (42-52); Hemoglobin 15.6 g/dL (14.0-18.0); Immature Granulocytes # (auto) 0.03 K/uL (0.00-0.02); Immature Granulocytes % (auto) 0.6 %; Lymphocytes # (auto) 1.22 K/uL (1.2-3.4); Mean Corpuscular Hemoglobin 30.7 pg (25-34); Mean Corpuscular Hgb Conc 34.8 g/dL (32-36); Mean Corpuscular Volume 88.2 fL (80-100); Mean Platelet Volume 11.4 fL (7.4-10.4); Monocytes # (auto) 0.44 K/uL (0.11-0.59); Monocytes % (auto) 8.6 %; Neutrophils # (auto) 3.33 K/uL (1.4-6.5); Neutrophils % (auto) 65.4 %; Platelet Count 223 K/uL (130-400); RDW Coefficient of Variation 12.9 % (11.5-14.5); RDW Standard Deviation 41.8 fL (36.4-46.3); Red Blood Count 5.08 M/uL (4.7-6.1); White Blood Count 5.09 K/uL (4.8-10.8)
[2020-12-18 17:55] LABS: INR 1.1 (0.9-1.1); Partial Thromboplastin Time 25.7 Seconds (21.0-31.0); Prothrombin Time 10.9 Seconds (9.0-12.0)
[2020-12-18 18:14] LABS: Alanine Aminotransferase 30 U/L (12-78); Albumin Globulin Ratio 1.1 (0.9-2); Albumin Level 3.7 gm/dl (3.4-5.0); Alkaline Phosphatase 105 U/L (45-117); Aspartate Aminotransferase 12 U/L (15-37); Bilirubin,Total 0.5 mg/dl (0.2-1); Blood Urea Nitrogen 34 mg/dl (7-18); Calcium 9.2 mg/dl (8.5-10.1); Carbon Dioxide 28 mmol/L (21-32); Chloride 104 mmol/L (98-107); Est GFR (African American) 33.9 ml/min; Est GFR (Non-African American) 29.3 ml/min; Globulin 3.4 gm/dl (2.5-4.0); Glucose 409 mg/dl (70-99); Magnesium 2.2 mg/dl (1.8-2.4); Potassium 4.9 mmol/L (3.5-5.1); Sodium 137 mmol/L (136-145); Total Protein 7.1 gm/dl (6.4-8.2); Troponin I < 0.015 ng/ml (0-0.045)
[2020-12-18] MEDS ORDERED: NovoLIN-R INSULIN PER UNIT CHARGE IV STA (18:24)
[2020-12-18 18:30] LABS: Beta-Hydroxybutyrate 1.39 mg/dl (0.2-2.81)
[2020-12-18 18:32] LABS: Procalcitonin < 0.05 ng/ml (0-0.5)
[2020-12-18 18:36] LABS: Lyme Ab IgG w/WB Rflx Negative (Negative); Lyme Ab IgM w/WB Rflx Negative (Negative)
--- NOTE | 2020-12-18 18:42 | CT Scan Report ---
HEAD CT NONCONTRAST CT DOSE: 614.27 mGy.cm HISTORY: weakness, freq falls TECHNIQUE: Multiaxial CT images of the head were performed without the use of intravenous contrast. A utomated exposure control was utilized for this study. A dose lowering technique was utilized adheri ng to the principles of ALARA. Comparison: Head CT 07/16/2020. Findings: The paranasal sinuses and mastoid air cells are clear. The calvarium and skull base are int act. There is no mass, hematoma, midline shift, acute infarct. White matter hypodensity is nonspecifi c but suggestive of microvascular ischemic change. The ventricles and sulci demonstrate mild age-rela tonja involutional changes. 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 Impression: No acute intracranial abnormality. ACT 112: Negative or not required by law. Electronically signed by: Efren Kenney M.D. 12/18/2020 6:41 PM
[2020-12-18] MEDS ORDERED: SODIUM CHLORIDE 0.9% 1000ML 1,000 ML IV ONE (19:35)
[2020-12-18] MEDS ORDERED: INSULIN GLARGINE SOLOSTAR 100 UNITS/ML 3 ML PEN SC STA (19:39)
[2020-12-18 20:05] LABS: Appearance Urine Clear (Clear); Bacteria Urine Automated Negative (Negative); Bilirubin Urine Negative (Negative); Blood Urine Negative (Negative); Cast Urine Automated 0 /lpf (0-5); Color Urine Yellow; Epithelial Cell Urine Auto 0-5 /lpf (0-5); Glucose Urine UA 3+ (Negative); Ketones Urine Negative (Negative); Leukocyte Esterase Urine Negative (Negative); Nitrite Urine Negative (Negative); Protein Urine Trace (Negative); RBC Urine Automated 0-4 /hpf (0-4); Specific Gravity Urine 1.024 (1.000-1.030); Urobilinogen Urine Negative (Negative); WBC Urine Automated 0 /hpf (0-5)
--- NOTE | 2020-12-18 20:43 | History & Physical Report ---
Date of Service December 18, 2020 Assessment & Plan (1) Dizziness: Recurrent admissions for orthostasis/dizziness 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 ARF on CKD DM1, marked hyperglycemia at the ER reasonable control as of recent hemoglobin A1c of 8.3, in July [address] PVD as per records hypertension, slightly elevated hyperlipidemia on statin Rx OBS Medical telemetry Check orthostatic vitals Consider initiation of midodrine if orthostatic vitals positive Monitor creatinine response to IVF, hold home losartan until creatinine back to baseline Basal insulin, ISS BG goal [id number], carb count coverage, update hemoglobin A1c PT OT eval DVT prophylaxis with Heparin subcu Full code Patient requesting for his brother to be updated of plan of care. Mr. Jean-Paul Lovelace, contact #[phone]. Text document was generated using [employer] voice recognition software. It may contain grammatical or spelling errors. Kindly contact undersigned for clarification of any documentation item in question. History of Present Illness Chief Complaint: Dizziness, weakness, recurrent falls Primary Care Provider: Bravo Robles MD History obtained from patient and records. Patient is a fair historian. Medical history significant for DM1, CVA on CT, PVD, hypertension, hyperlipidemia, CRI (baseline creatinine 1.6) Last confinement July 2020 for dizziness symptoms. 4 days ago, patient noted dizziness symptoms described as lightheadedness. Not spinning. No chest pain, no S OB. No cough symptoms. No abdominal pain. Appetite not too good the last few days. Recurrent falls from lightheadedness. Denies syncope. Patient brought to the ER for evaluation. Medical History as above Surgical History : Toe amputation, cataract surgery, laser trabeculoplasty, vitrectomy, tympanostomy tube placement Family History : DM, HTN Personal/Social history : Non-smoker, occasional EtOH intake, disabled Allergies Allergy/AdvReac Type Severity Reaction Status Date / Time levofloxacin Allergy Unknown "nervous" Verified 12/18/20 16:57 shrimp AdvReac Unknown NAUSEA Verified 12/18/20 16:57 Home Medications Medication Instructions Recorded Confirmed Type amlodipine 5 mg PO QAM 10/19/18 12/18/20 History aspirin [Aspirin Low Dose] 81 mg PO QAM 10/19/18 12/18/20 History gabapentin 600 mg PO BID 10/19/18 12/18/20 History Lantus Solostar U-100 Insulin 35 unit SUBCUT QAM 02/26/20 12/18/20 History insulin aspart U-100 [Novolog 8 unit SUBCUT HS 02/26/20 12/18/20 History Flexpen U-100 Insulin] atorvastatin 40 mg PO HS #30 tab 07/08/20 12/18/20 Rx fexofenadine-pseudoephedrine 1 tab PO BID #14 tab 07/08/20 12/18/20 Rx [Merari-D 12 Hour] losartan 25 mg PO QAM #30 tab 07/08/20 12/18/20 Rx meclizine 25 mg PO Q8H PRN #15 tab 07/08/20 12/18/20 Rx Pj Hose #1 ea 12/19/20 Rx Past Med/Surg History Medical History (Updated 12/19/20 @ 08:22 by Ulisses Li MD) Ambulatory dysfunction CKD (chronic kidney disease) CKD (chronic kidney disease) stage 3, GFR 30-59 ml/min COVID-19 Diabetic neuropathy Difficult airway for intubation Glidescope 2012 Dizziness DM type 1 (diabetes mellitus, type 1) Fall History of heart block Patient presented to [facility] 03/2013 for elective L foot I&D. On induction with propofol in OR pt went into 3rd degree HB. Pt intubated and given 1 dose of Epi, which resolved HB but diffuse ST depression remained. Surgery aborted, pt to PACU, where ST segments returned to baseline and pt was extubated. Cardio consulted, echo WNL, no etiology discovered for HB, ST depression felt 2/2 strain from Epi or apnea. No further testing or intervention recommended. History of osteomyelitis HLD (hyperlipidemia) HTN (hypertension) Hyperlipidemia Low back pain Osteomyelitis of left foot history of Pulmonary nodule PVD (peripheral vascular disease) Vertigo history of--hypoglycemia Surgical History H/O eye surgery both eyes, corrective lens implant History of colonoscopy 8 years ago S/P amputation of lesser toe "right second and third toe" Family History Brother Diabetes Social History Smoking Status: Never smoker Second Hand Exposure: No; Hx Alcohol Use: Yes Alcohol type: wine Alcohol Intake Frequency: 2-4 x/Month Hx Substance Use: No Preferred Language: Swedish Communication Ability: Effective Hog Sticker Required: No Beliefs That Will Affect Care: None Current Living Situation: Family Current Living Situation Comment: brother Feels Safe at Home: Yes Safety Concerns: Feels Safe At This Time Assistive Devices: None Review of Systems Review of Systems: As per HPI, all 10 systems reviewed, all other ROS negative Physical Exam Physical Exam: GENERAL: Comfortable, pleasant, no respiratory distress SKIN: Normal color, warm HEENT: Alopecia, bespectacled, pink palpebral conjunctivae, no ptosis, dry buccal mucosa NECK : Supple, no tenderness CHEST : CTA, no tenderness HEART : RRR, no obvious murmurs ABDOMEN: Some distention, nontender EXTREMITIES : No LE swelling/tenderness, no other conspicuous deformities noted NEUROLOGIC : Coherent, no facial asymmetry, no other gross focality Results & Data Results & Data ([facility]) Vital Signs (Past 12 Hours) Vital Signs Temp Pulse Resp BP Pulse Ox 12/18/20 18:00 20 98 12/18/20 17:52 66 16 158/80 H 99 12/18/20 16:38 36.3 C L 61 16 146/74 H 99 Laboratory Results Laboratory Results WBC 5.09 K/uL (4.8-10.8) 12/18/20 17:33 RBC 5.08 M/uL (4.7-6.1) 12/18/20 17:33 Hgb 15.6 g/dL (14.0-18.0) 12/18/20 17:33 Hct 44.8 % (42-52) 12/18/20 17:33 MCV 88.2 fL (80-100) 12/18/20 17:33 MCH 30.7 pg (25-34) 12/18/20 17:33 MCHC 34.8 g/dL (32-36) 12/18/20 17:33 RDW Std Deviation 41.8 fL (36.4-46.3) 12/18/20 17:33 RDW Coeff of Дмитрий 12.9 % (11.5-14.5) 12/18/20 17:33 Plt Count 223 K/uL (130-400) 12/18/20 17:33 MPV 11.4 fL (7.4-10.4) H 12/18/20 17:33 Immature Gran % (Auto) 0.6 % 12/18/20 17:33 Neut % (Auto) 65.4 % 12/18/20 17:33 Lymph % (Auto) 24.0 % 12/18/20 17:33 Larue % (Auto) 8.6 % 12/18/20 17:33 Eos % (Auto) 1.2 % 12/18/20 17:33 Baso % (Auto) 0.2 % 12/18/20 17:33 Neut # (Auto) 3.33 K/uL (1.4-6.5) 12/18/20 17:33 Lymph # (Auto) 1.22 K/uL (1.2-3.4) 12/18/20 17:33 Larue # (Auto) 0.44 K/uL (0.11-0.59) 12/18/20 17:33 Eos # (Auto) 0.06 K/uL (0-0.5) 12/18/20 17:33 Baso # (Auto) 0.01 K/uL (0-0.2) 12/18/20 17:33 Immature Gran # (Auto) 0.03 K/uL (0.00-0.02) H 12/18/20 17:33 PT 10.9 Seconds (9.0-12.0) 12/18/20 17:33 INR 1.1 (0.9-1.1) 12/18/20 17:33 APTT 25.7 Seconds (21.0-31.0) 12/18/20 17:33 PTT Ratio 1.0 12/18/20 17:33 Sodium 137 mmol/L (136-145) 12/18/20 17:33 Potassium 4.9 mmol/L (3.5-5.1) 12/18/20 17:33 Chloride 104 mmol/L (98-107) 12/18/20 17:33 Carbon Dioxide 28 mmol/L (21-32) 12/18/20 17:33 Anion Gap 5.0 (3-11) 12/18/20 17:33 BUN 34 mg/dl (7-18) H 12/18/20 17:33 Creatinine 2.29 mg/dl (0.6-1.4) H 12/18/20 17:33 Est Cr Clr Drug Dosing Not Reportable 12/18/20 17:33 Est GFR ( Amer) 33.9 ml/min 12/18/20 17:33 Est GFR (Non-Af Amer) 29.3 ml/min 12/18/20 17:33 BUN/Creatinine Ratio 15.0 (10-20) 12/18/20 17:33 Glucose 409 mg/dl (70-99) H* 12/18/20 17:33 POC Glucose 158 mg/dl (70-99) H 12/18/20 20:19 Lactate 1.0 mmol/L (0.4-2.0) 12/18/20 17:33 Calcium 9.2 mg/dl (8.5-10.1) 12/18/20 17:33 Magnesium 2.2 mg/dl (1.8-2.4) 12/18/20 17:33 Total Bilirubin 0.5 mg/dl (0.2-1) 12/18/20 17:33 AST 12 U/L (15-37) L 12/18/20 17:33 ALT 30 U/L (12-78) 12/18/20 17:33 Alkaline Phosphatase 105 U/L (45-117) 12/18/20 17:33 Troponin I < 0.015 ng/ml (0-0.045) 12/18/20 17:33 Total Protein 7.1 gm/dl (6.4-8.2) 12/18/20 17:33 Albumin 3.7 gm/dl (3.4-5.0) 12/18/20 17:33 Globulin 3.4 gm/dl (2.5-4.0) 12/18/20 17:33 Albumin/Globulin Ratio 1.1 (0.9-2) 12/18/20 17:33 Beta-Hydroxybutyric Acd 1.39 mg/dl (0.2-2.81) 12/18/20 17:33 Procalcitonin < 0.05 ng/ml (0-0.5) 12/18/20 17:33 Procalcitonin Cancelled 12/18/20 17:33 Urine Color Yellow 12/18/20 19:38 Urine Appearance Clear (Clear) 12/18/20 19:38 Urine pH 5.0 (4.5-7.5) 12/18/20 19:38 Ur Specific [place] 1.024 (1.000-1.030) 12/18/20 19:38 Urine Protein Trace (Negative) H 12/18/20 19:38 Urine Glucose (UA) 3+ (Negative) H 12/18/20 19:38 Urine Ketones Negative (Negative) 12/18/20 19:38 Urine Blood Negative (Negative) 12/18/20 19:38 Urine Nitrite Negative (Negative) 12/18/20 19:38 Urine Bilirubin Negative (Negative) 12/18/20 19:38 Urine Urobilinogen Negative (Negative) 12/18/20 19:38 Ur Leukocyte Esterase Negative (Negative) 12/18/20 19:38 Urine WBC (Auto) 0 /hpf (0-5) 12/18/20 19:38 Urine RBC (Auto) 0-4 /hpf (0-4) 12/18/20 19:38 U Hyaline Cast (Auto) 0 /lpf (0-5) 12/18/20 19:38 U Epithel Cells (Auto) 0-5 /lpf (0-5) 12/18/20 19:38 Urine Bacteria (Auto) Negative (Negative) 12/18/20 19:38 Anaplasma Smear See Comment 12/18/20 17:33 Lyme Disease IgG Ab Negative (Negative) 12/18/20 17:33 Lyme Disease IgM Ab Negative (Negative) 12/18/20 17:33 COVID-19 Eval Order Covid19 at [facility] 12/18/20 17:53 SARS-CoV-2 (PCR) NEGATIVE (Negative) 12/18/20 17:53 Impressions Chest X-Ray 12/18/20 17:08 XR chest 1V portable HISTORY: SEPSIS COMPARISON: Chest 07/16/2020. FINDINGS: The lungs are clear. The heart is borderline enlarged. This remains unchanged. No pleural effusions. No pneumothorax. Old, healed left-sided rib fractures are again noted. IMPRESSION: No significant change compared to the prior study. No acute process. ACT 112: Negative or not required by law. Electronically signed by: Efren Kenney M.D. 12/18/2020 5:[address] 12/18/20 17:[address] DOSE: 614.27 mGy.cm HISTORY: weakness, freq falls TECHNIQUE: Multiaxial CT images of the head were performed without the use of intravenous contrast. Automated exposure control was utilized for this study. A dose lowering technique was utilized adhering to the principles of ALARA. Comparison: Head CT 07/16/2020. Findings: The paranasal sinuses and mastoid air cells are clear. The calvarium and skull base are intact. There is no mass, hematoma, midline shift, acute infarct. White matter hypodensity is nonspecific but suggestive of microvascular ischemic change. The ventricles and sulci demonstrate mild age-related involutional changes. 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 Impression: No acute intracranial abnormality. ACT 112: Negative or not required by law. Electronically signed by: Efren Kenney M.D. 12/18/2020 6:41 PM Diagnostic Findings EKG as per my interpretation rate 60, NSR, normal axis, no ischemia
[2020-12-18 21:43] LABS: BUN Creatinine Ratio 20.4 (10-20); Creatinine Clr Calc Pharmacy 41.1 ml/min; Est GFR (African American) 42.5 ml/min; Est GFR (Non-African American) 36.7 ml/min; Potassium 4.3 mmol/L (3.5-5.1)
[2020-12-18] MEDS ORDERED: GLUCOSE 10 TABS/TUBE PO PRN (22:01)
[2020-12-18] MEDS ORDERED: DEXTROSE 50% 50 ML SYRINGE IV PRN (22:01)
[2020-12-18] MEDS ORDERED: PROMETHAZINE HCL 12.5 MG in SODIUM CHLORIDE 0.9% 50 ML IV PRN (22:01)
[2020-12-18] MEDS ORDERED: GLUCOSE 40% GEL 15 GM TUBE PO PRN (22:01)
[2020-12-18] MEDS ORDERED: CARBOHYDRATES FOR HYPOGLYCEMIA PO PRN (22:01)
[2020-12-18] MEDS ORDERED: ATORVASTATIN 40 MG TAB PO SCH (22:01)
[2020-12-18] MEDS ORDERED: ACETAMINOPHEN 325 MG TAB PO PRN (22:01)
[2020-12-18] MEDS ORDERED: GLUCAGON FOR INJ 1 MG VIAL SQ PRN (22:01)
[2020-12-18] MEDS: HEPARIN SOD 5,000 UNIT/0.5 ML VIAL SQ SCH ×2 (23:02→23:05)
[2020-12-18] MEDS: INSULIN ASPART 100 UNITS/ML 3 ML PEN SC SCH ×2 (23:03→23:05)
[2020-12-19] MEDS ORDERED: SODIUM CHLORIDE 0.45 % 1,000 ML IV ONE (00:35)
[2020-12-19] MEDS: HEPARIN SOD 5,000 UNIT/0.5 ML VIAL SQ SCH ×2 (05:39→13:32)
[2020-12-19 06:56] LABS: Estimated Average Glucose 220 mg/dl; Hemoglobin A1C 9.3 % (4.5-5.6)
[2020-12-19 06:59] LABS: Basophils # (auto) 0.03 K/uL (0-0.2); Basophils % (auto) 0.5 %; Eosinophils # (auto) 0.12 K/uL (0-0.5); Eosinophils % (auto) 2.2 %; Hematocrit (blood only) 40.8 % (42-52); Hemoglobin 14.4 g/dL (14.0-18.0); Immature Granulocytes # (auto) 0.03 K/uL (0.00-0.02); Immature Granulocytes % (auto) 0.5 %; Lymphocytes # (auto) 1.44 K/uL (1.2-3.4); Mean Corpuscular Hemoglobin 30.8 pg (25-34); Mean Corpuscular Hgb Conc 35.3 g/dL (32-36); Mean Corpuscular Volume 87.2 fL (80-100); Mean Platelet Volume 10.9 fL (7.4-10.4); Monocytes # (auto) 0.51 K/uL (0.11-0.59); Monocytes % (auto) 9.2 %; Neutrophils # (auto) 3.41 K/uL (1.4-6.5); Neutrophils % (auto) 61.6 %; Platelet Count 205 K/uL (130-400); RDW Coefficient of Variation 12.8 % (11.5-14.5); Red Blood Count 4.68 M/uL (4.7-6.1); White Blood Count 5.54 K/uL (4.8-10.8)
[2020-12-19 07:26] LABS: BUN Creatinine Ratio 26.2 (10-20); Calcium 8.8 mg/dl (8.5-10.1); Creatinine Clr Calc Pharmacy 57.4 ml/min; Est GFR (African American) 63.7 ml/min; Potassium 4.1 mmol/L (3.5-5.1)
[2020-12-19] MEDS: INSULIN ASPART 100 UNITS/ML 3 ML PEN SC SCH ×2 (08:50→12:07)
[2020-12-19] MEDS ORDERED: amLODIPine BESYLATE 5 MG TAB PO SCH (09:00)
[2020-12-19] MEDS ORDERED: INSULIN GLARGINE SOLOSTAR 100 UNITS/ML 3 ML PEN SQ SCH (09:00)
[2020-12-19] MEDS ORDERED: ASPIRIN 81 MG ECTAB PO SCH (09:00)
--- NOTE | 2020-12-19 10:59 | Hospitalist Progress Note ---
Date of Service December 19, 2020 Assessment & Plan (1) Dizziness: Recurrent admissions for orthostasis/dizziness 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 Pj Hernandez ARF on CKD DM1, marked hyperglycemia at the ER reasonable control as of recent hemoglobin A1c of 8.3, in July [address] PVD as per records hypertension, slightly elevated hyperlipidemia on statin Rx OBS Medical telemetry Check orthostatic vitals Consider initiation of midodrine if orthostatic vitals positive Monitor creatinine response to IVF, hold home losartan until creatinine back to baseline Basal insulin, ISS BG goal 540266, carb count coverage, update hemoglobin A1c PT OT eval DVT prophylaxis with Heparin subcu Full code Labs checked ROS-No Headache, No Visual Changes, No Nausea, No Vomiting, No Fever, No Chills, No Neck Pain or Stiffness, No Chest Pain, No Palpitations, No SOB, No MARIE, No Cough, No Sputum, No Wheezing, No Abdominal Pain, No Diarrhea, No Hematemesis, No Hemoptysis, No Unexpected Weight Loss, No Flank pain, No Melena, No Hematochezia, No Frequency, No Urgency, No Burning, No Hematuria, No Rashes, No Diaphoresis. Appetite is Normal Physical Exam Gen-AAO x 3, NAD, Afebrile Head-NCAT, EOMI, PERRLA, Anicteric Sclera, No Posterior Pharyngeal Erythema Neck-Supple, No JVD, No Thyromegaly, No Masses, No LAD, No Bruits Lungs-Clear to Auscultation Bilaterally, No Rales, No Rhonchi, No Wheezing, No Crepitus Chest-No S4, +S1, +S2, No S3, No Murmurs, No Rubs, No Gallops, No Ectopy Abdomen-Soft, Bowel Sounds Present, Non Tender, Non Distended, No Hepatomegaly, No Splenomegaly, No Palpable Masses, No Rebound, No Rigidity, No Guarding Musculoskeletal-Full Range of Motion Bilaterally, No CVAT Extremities-No Cyanosis, No Clubbing, No Edema Nuero-Cranial Nerves II-XII grossly intact, Motor WNL, DTRs WNL, Strength WNL, Non Focal Psych-Normal Mood Admission and Anticipated Discharge Date Admission Date: December 18, 2020 Results & Data Results & Data ([facility]) Vital Signs (Past 12 Hours) Vital Signs Temp Pulse Pulse Resp BP BP Pulse Ox 12/19/20 07:07 36.5 C 56 L 16 157/92 H 95 12/19/20 03:02 36.4 C L 61 18 167/79 H 97 12/18/20 23:25 69
--- NOTE | 2020-12-19 11:01 | Hospitalist Progress Note ---
Date of Service December 19, 2020 Assessment & Plan (1) Dizziness: Recurrent admissions for orthostasis/dizziness 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 Pj Hernandez ARF on CKD DM1, marked hyperglycemia at the ER reasonable control as of recent hemoglobin A1c of 8.3, in July [address] PVD as per records hypertension, slightly elevated hyperlipidemia on statin Rx OBS Medical telemetry Check orthostatic vitals Consider initiation of midodrine if orthostatic vitals positive Monitor creatinine response to IVF, hold home losartan until creatinine back to baseline Basal insulin, ISS BG goal 432210, carb count coverage, update hemoglobin A1c PT OT eval DVT prophylaxis with Heparin subcu Full code Labs checked ROS-No Headache, No Visual Changes, No Nausea, No Vomiting, No Fever, No Chills, No Neck Pain or Stiffness, No Chest Pain, No Palpitations, No SOB, No MARIE, No Cough, No Sputum, No Wheezing, No Abdominal Pain, No Diarrhea, No Hematemesis, No Hemoptysis, No Unexpected Weight Loss, No Flank pain, No Melena, No Hematochezia, No Frequency, No Urgency, No Burning, No Hematuria, No Rashes, No Diaphoresis. Appetite is Normal Physical Exam Gen-AAO x 3, NAD, Afebrile Head-NCAT, EOMI, PERRLA, Anicteric Sclera, No Posterior Pharyngeal Erythema Neck-Supple, No JVD, No Thyromegaly, No Masses, No LAD, No Bruits Lungs-Clear to Auscultation Bilaterally, No Rales, No Rhonchi, No Wheezing, No Crepitus Chest-No S4, +S1, +S2, No S3, No Murmurs, No Rubs, No Gallops, No Ectopy Abdomen-Soft, Bowel Sounds Present, Non Tender, Non Distended, No Hepatomegaly, No Splenomegaly, No Palpable Masses, No Rebound, No Rigidity, No Guarding Musculoskeletal-Full Range of Motion Bilaterally, No CVAT Extremities-No Cyanosis, No Clubbing, No Edema Nuero-Cranial Nerves II-XII grossly intact, Motor WNL, DTRs WNL, Strength WNL, Non Focal Psych-Normal Mood Admission and Anticipated Discharge Date Admission Date: December 18, 2020 Results & Data Results & Data ([facility]) Vital Signs (Past 12 Hours) Vital Signs Temp Pulse Pulse Resp BP BP Pulse Ox 12/19/20 07:07 36.5 C 56 L 16 157/92 H 95 12/19/20 03:02 36.4 C L 61 18 167/79 H 97 12/18/20 23:25 69
--- NOTE | 2020-12-19 13:49 | Electrocardiogram Report ---
Test Reason : Blood Pressure : / mmHG Vent. Rate : 062 BPM Atrial Rate : 062 BPM P-R Int : 172 ms QRS Dur : 072 ms QT Int : 420 ms P-R-T Axes : 071 -04 079 degrees QTc Int : 426 ms Normal sinus rhythm Low voltage QRS Septal infarct (cited on or before 15-JUL-2020) Abnormal ECG When compared with ECG of 15-JUL-2020 23:22, Premature atrial complexes are no longer Present Questionable change in initial forces of Septal leads Confirmed by Kushal Mejia ([id number]) on 12/19/2020 1:49:36 PM Referred By: REFERRED SELF Confirmed By:Kushal Mejia
--- NOTE | 2020-12-19 14:18 | Discharge Summary ---
Date of Service December 19, 2020 Admission HPI Per Admitting Provider History obtained from patient and records. Patient is a fair historian. Medical history significant for DM1, CVA on CT, PVD, hypertension, hyperlipidemia, CRI (baseline creatinine 1.6) Last confinement July 2020 for dizziness symptoms. 4 days ago, patient noted dizziness symptoms described as lightheadedness. Not spinning. No chest pain, no S OB. No cough symptoms. No abdominal pain. Appetite not too good the last few days. Recurrent falls from lightheadedness. Denies syncope. Patient brought to the ER for evaluation. Medical History as above Surgical History : Toe amputation, cataract surgery, laser trabeculoplasty, vitrectomy, tympanostomy tube placement Family History : DM, HTN Personal/Social history : Non-smoker, occasional EtOH intake, disabled Admission Exam Per Admitting Provider General: Well developed well nourished middle-age male who in no acute distress, breathing comfortably on room air. Normal speech HEENT: Normal cephalic atraumatic. Pupils are equal round and reactive to light. Extraocular movements are intact. Oropharynx is pink with moist mucous membranes. No swelling of the mouth lips or tongue. Neck: Supple with a midline trachea. No meningeal signs or stiffness, no JVD or bruits. No Stridor. Neck is freely mobile and has negative Kernig and Brezinski signs Chest: Clear to auscultation bilaterally. No wheezes or rhonchi. No increased work of breathing. Heart: Regular rate and rhythm without murmurs or gallops. Abdomen: Soft nontender, nondistended without rebound guarding or rigidity. Extremities: No cyanosis clubbing or edema. No calf tenderness or assymetry Spine/Back. Non tender to palpation. No CVA tenderness Skin: Good turgor without rashes. Neurologic exam: Cranial nerves two through 12 are intact. Motor and sensation are intact and symmetrical throughout. Finger-nose intact. No tremor. No pronator drift. 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 ARF on CKD DM1 hx CVA on CT PVD hypertension hyperlipidemia Discharge Exam see below Discharge Data Allergies Allergy/AdvReac Type Severity Reaction Status Date / Time levofloxacin Allergy Unknown "nervous" Verified 12/18/20 16:57 shrimp AdvReac Unknown NAUSEA Verified 12/18/20 16:57 Consultations 12/18/20 19:07 ED Decision to Admit Stat Ordered Studies 12/18/20 17:08 CT head/brain wo con Stat Current Diagnoses Dizziness and giddiness (12/18/20) Allergies levofloxacin Allergy (Unknown, Verified 12/18/20 16:57) "nervous" shrimp Adverse Reaction (Unknown, Verified 12/18/20 16:57) NAUSEA Height/Weight/Isolation Height 5 ft 10 in Weight 81.6 kg Chemistry 12/18/20 12/18/20 12/19/20 17:33 21:16 06:46 Sodium 137 142 142 Potassium 4.9 4.3 4.1 Chloride 104 110 H 111 H Carbon Dioxide 28 26 26 Anion Gap 5.0 6.0 5.0 BUN 34 H 39 H 36 H Creatinine 2.29 H 1.90 H D 1.36 D Glucose 409 H* 168 H 107 H Urinalysis 12/18/20 19:38 Urine Color Yellow Urine Appearance Clear Urine pH 5.0 Ur Specific [place] 1.024 Urine Protein Trace H Urine Glucose (UA) 3+ H Urine Ketones Negative Urine Blood Negative Urine Nitrite Negative Urine Bilirubin Negative Microbiology 12/18/20 17:33 Blood Aerobic Blood Culture - Pending 12/18/20 17:33 Blood Anaerobic Blood Culture - Pending 12/18/20 17:33 Blood Aerobic Blood Culture - Pending 12/18/20 17:33 Blood Anaerobic Blood Culture - Pending Hospital Course (1) Dizziness: Recurrent admissions for orthostasis/dizziness 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 Dionisio Hernandez ARF on CKD-Back to baseline DM1, marked hyperglycemia at the ER reasonable control as of recent hemoglobin A1c of 8.3, in July [address] PVD as per records hypertension, slightly elevated hyperlipidemia on statin Rx DC home on Dionisio Hernandez c HHC/HPT/HOT Resume losartan on DC Basal insulin, ISS BG goal [id number], carb count coverage, update hemoglobin A1c PT OT rec home c HHC/PT/OT Full code Labs checked ROS-No Headache, No Visual Changes, No Nausea, No Vomiting, No Fever, No Chills, No Neck Pain or Stiffness, No Chest Pain, No Palpitations, No SOB, No MARIE, No Cough, No Sputum, No Wheezing, No Abdominal Pain, No Diarrhea, No Hematemesis, No Hemoptysis, No Unexpected Weight Loss, No Flank pain, No Melena, No Hematochezia, No Frequency, No Urgency, No Burning, No Hematuria, No Rashes, No Diaphoresis. Appetite is Normal Physical Exam Gen-AAO x 3, NAD, Afebrile Head-NCAT, EOMI, PERRLA, Anicteric Sclera, No Posterior Pharyngeal Erythema Neck-Supple, No JVD, No Thyromegaly, No Masses, No LAD, No Bruits Lungs-Clear to Auscultation Bilaterally, No Rales, No Rhonchi, No Wheezing, No Crepitus Chest-No S4, +S1, +S2, No S3, No Murmurs, No Rubs, No Gallops, No Ectopy Abdomen-Soft, Bowel Sounds Present, Non Tender, Non Distended, No Hepatomegaly, No Splenomegaly, No Palpable Masses, No Rebound, No Rigidity, No Guarding Musculoskeletal-Full Range of Motion Bilaterally, No CVAT Extremities-No Cyanosis, No Clubbing, No Edema Nuero-Cranial Nerves II-XII grossly intact, Motor WNL, DTRs WNL, Strength WNL, Non Focal Psych-Normal Mood I certify that this patient is under my care and that I, or a physicians psychology assistant working with me, had a face to-face encounter that meets the home health [id number] encounter requirements with this patient. The encounter with the patient was in whole, or in part, for the following medical condition, which is the primary reason for home health care (list medical condition): I certify that, based on my findings, the following services are medically necessary home health services: My clinical findings support the need for the above services because: Caregiver Instruct Med Mgmt, Safety, Disease Process, Signs to Report Medication Compliance and Monitoring Effective of New Medications Medication Compliance PT Assessment for Endurance / Balance / Strength PT Eval for Safety and Mobility PT Eval for Safety, Gait Training, Assistive Devices PT Gait and Balance Training, Strengthening and Safety Skilled Nsg Assessment Vital Signs Further, I certify that my clinical findings support that this patient is homebound (i.e. absences from home require considerable and taxing effort and are for medical reasons or zoroastrianism services or infrequently or of short duration when for other reasons) because: Transportation Assistance/Unable to Leave Home Unassisted Certification for Home Health Services: Based on the above findings, I certify that this patient is confined to the home and needs intermittent senior care care, physical therapy and/or speech therapy or continues to need occupational therapy. The patient is under my care, and I have initiated the establishment of the plan of care. This patient will be followed by a physician who will periodically review the plan of care. 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 ARF on CKD DM1 hx CVA on CT PVD hypertension hyperlipidemia Condition on Discharge: Fair Health Concerns: Falls Activity: Resume your previous activity Lifting: Gradually increase as tolerated Bathing: No limitations Exercise/Sports: Gradually increase as tolerated Driving/Machine Use: none Weightbearing: Full weightbearing Non-emergency contact: Primary Care Provider Call non-emergency contact if: you have any medication questions Follow-up/Referrals: Bravo Robles MD [Primary Care Provider] - (Date & Time 12/22/2020 2:00 PM Provider Bravo Robles III, MD Department [facility] ) Diet: Carb Count or DM1 and Heart Healthy Addtl Attending Provider Instructions: Get up slowly when you stand, Where DIONISIO hose to your Knees Pending Studies at Discharge: No Stand-Alone Forms: My [facility], Smoking Cessation Medications and DC Order Prescriptions: New (DME) Dionisio Hose Misc 1 ea .Route DAILY Qty: 1 RF: 0 Continued amlodipine 5 mg tablet 5 mg PO QAM RF: 0 aspirin [Aspirin Low Dose] 81 mg Tablet,Delayed Release (Dr/Ec) 81 mg PO QAM RF: 0 gabapentin 300 mg capsule 600 mg PO BID RF: 0 insulin aspart U-100 [Novolog Flexpen U-100 Insulin] 100 unit/mL (3 mL) insulin pen 8 unit subcut HS RF: 0 Lantus Solostar U-100 Insulin 100 unit/mL (3 mL) insulin pen 35 unit SUBCUT QAM RF: 0 atorvastatin 40 mg Tablet 40 mg PO HS Qty: 30 RF: 0 meclizine 25 mg Tablet 25 mg PO Q8H PRN (Reason: dizziness) Qty: 15 RF: 0 losartan 25 mg Tablet 25 mg PO QAM Qty: 30 RF: 0 fexofenadine-pseudoephedrine [Merari-D 12 Hour] 60-120 mg Tablet Extended Release 12 Hr 1 tab PO BID Qty: 14 RF: 0 Discharge Orders: Discharge Order (Routine); Ordered 12/19/20 Ordered By: Miki Morgan Admission Data Admit Date/Time: 12/18/20 20:46 Attending Provider: Miki Morgan Admit Provider: Ulisses Li Primary Care Provider: Bravo Robles Other Providers: Ulisses Li
== END 2020-12-19 15:25 | disposition home health service (06) ==
LOC: 2N 16:24 → ED 16:24 → SUATTDRO 20:46 → 2N 21:14

== ENCOUNTER 2020-12-26 18:08 | Inpatient (IN) ==
--- NOTE | 2020-12-26 19:54 | Emergency Department Note ---
History of Present Illness General Chief complaint: Weakness Stated complaint: WEAKNESS Time Seen by Provider: 12/26/20 19:40 Source: patient and family History of Present Illness Provider complaint: Generalized weakness Onset (ago): month(s) Location: head Pain Consistency: + constant Maximum Pain Intensity: 3 Quality: + other (Weak and lightheaded) Exacerbated By: + other (Sitting up or standing) Associated symptoms: + weakness and + other (Back pain after falling today); no chest pain, no cough, no fever/chills, no headaches, no nausea/vomiting, no shortness of breath and no syncope This is a 65-year-old male who presents with his brother complaining of persistent weakness and lightheadedness. He has had his symptoms for about a month and a half. He states that it is worse when he tries to get up. He has no strength throughout his body. He denies any fever, cough or cold symptoms, headache, chest pain, shortness of breath, abdominal pain, vomiting, diarrhea, black or bloody stools or urinary symptoms. He was just discharged from the hospital a week ago and sent home and he has been continuing to be weak throughout that time. He states that today he felt weak and fell to the ground hitting his mid back. He denies any head injury or LOC. He denies any neck pain. He complains of some minor back pain in the mid back. He denies any hip pain. The pain occurred after falling and had not been there before. Home Medications Medication Instructions Recorded Confirmed Type amlodipine 5 mg PO QAM 10/19/18 12/26/20 History aspirin [Aspirin Low Dose] 81 mg PO QAM 10/19/18 12/26/20 History gabapentin 600 mg PO BID 10/19/18 12/26/20 History Lantus Solostar U-100 Insulin 35 unit SUBCUT QAM 02/26/20 12/26/20 History insulin aspart U-100 [Novolog 8 unit SUBCUT HS 02/26/20 12/26/20 History Flexpen U-100 Insulin] atorvastatin 40 mg PO HS #30 tab 07/08/20 12/26/20 Rx fexofenadine-pseudoephedrine 1 tab PO BID #14 tab 07/08/20 12/26/20 Rx [Merari-D 12 Hour] losartan 25 mg PO QAM #30 tab 07/08/20 12/26/20 Rx meclizine 25 mg PO Q8H PRN #15 tab 07/08/20 12/26/20 Rx Allergies Allergy/AdvReac Type Severity Reaction Status Date / Time levofloxacin Allergy Unknown "nervous" Verified 12/18/20 16:57 shrimp AdvReac Unknown NAUSEA Verified 12/18/20 16:57 Past Med/Surg History Medical History (Updated 12/27/20 @ 01:33 by Kwabena Quiroz MD) Ambulatory dysfunction CKD (chronic kidney disease) CKD (chronic kidney disease) stage 3, GFR 30-59 ml/min COVID-19 Diabetic neuropathy Difficult airway for intubation Glidescope 2012 Dizziness DM type 1 (diabetes mellitus, type 1) Fall History of heart block Patient presented to [facility] 03/2013 for elective L foot I&D. On induction with propofol in OR pt went into 3rd degree HB. Pt intubated and given 1 dose of Epi, which resolved HB but diffuse ST depression remained. Surgery aborted, pt to PACU, where ST segments returned to baseline and pt was extubated. Cardio consulted, echo WNL, no etiology discovered for HB, ST depression felt 2/2 strain from Epi or apnea. No further testing or intervention recommended. History of osteomyelitis HLD (hyperlipidemia) HTN (hypertension) Hyperlipidemia Low back pain Osteomyelitis of left foot history of Pulmonary nodule PVD (peripheral vascular disease) Vertigo history of--hypoglycemia Surgical History H/O eye surgery both eyes, corrective lens implant History of colonoscopy 8 years ago S/P amputation of lesser toe "right second and third toe" Family History Brother Diabetes Social History Smoking Status: Never smoker Second Hand Exposure: No; Hx Alcohol Use: Yes Alcohol type: wine Alcohol Intake Frequency: 2-4 x/Month Hx Substance Use: No Preferred Language: Korean Communication Ability: Effective Supervisor Type Disk Quality Control Required: No Beliefs That Will Affect Care: None Current Living Situation: Family Current Living Situation Comment: brother Feels Safe at Home: Yes Assistive Devices: None Review of Systems See HPI for pertinent positives & negatives. and A total of 10 systems reviewed and were otherwise negative Physical Exam Vital Signs Vital Signs - 24 hr 12/26/20 18:18 12/26/20 19:41 12/26/20 19:51 Temperature 36.3 C L Temperature Source Temporal Artery Scan Pulse Rate 79 64 64 Pulse Rate from SpO2 Sensor 64 64 Respiratory Rate 18 19 18 Blood Pressure 129/78 138/75 Blood Pressure Mean 95 96 Pulse Oximetry 97 100 100 Oxygen Delivery Method Room Air Room Air Room Air Sepsis Recent Fever Within 48 Hours No Sepsis New/Unexplained Change in Mental Status N/A Sepsis Action Taken by Nursing No Action Required 12/26/20 20:00 12/26/20 21:29 12/26/20 21:30 Temperature Temperature Source Pulse Rate 63 63 63 Pulse Rate from SpO2 Sensor 63 62 64 Respiratory Rate 18 18 22 Blood Pressure 136/72 141/70 H 147/63 H Blood Pressure Mean 93 93 91 Pulse Oximetry 100 98 98 Oxygen Delivery Method Room Air Room Air Room Air Sepsis Recent Fever Within 48 Hours Sepsis New/Unexplained Change in Mental Status Sepsis Action Taken by Nursing 12/26/20 21:32 12/26/20 22:00 12/26/20 22:30 Temperature Temperature Source Pulse Rate 60 62 64 Pulse Rate from SpO2 Sensor 61 64 Respiratory Rate 17 16 24 Blood Pressure 133/75 158/69 H Blood Pressure Mean 94 98 Pulse Oximetry 97 91 92 Oxygen Delivery Method Room Air Room Air Room Air Sepsis Recent Fever Within 48 Hours Sepsis New/Unexplained Change in Mental Status Sepsis Action Taken by Nursing 12/26/20 23:00 12/26/20 23:30 12/26/20 23:57 Temperature Temperature Source Pulse Rate 66 69 63 Pulse Rate from SpO2 Sensor 99 H 64 Respiratory Rate 28 H 20 15 Blood Pressure 134/71 155/79 H 139/70 Blood Pressure Mean 92 104 93 Pulse Oximetry 94 96 98 Oxygen Delivery Method Room Air Room Air Room Air Sepsis Recent Fever Within 48 Hours Sepsis New/Unexplained Change in Mental Status Sepsis Action Taken by Nursing 12/27/20 00:00 12/27/20 00:30 12/27/20 01:00 Temperature Temperature Source Pulse Rate 64 65 67 Pulse Rate from SpO2 Sensor 64 65 67 Respiratory Rate 15 19 16 Blood Pressure 138/70 152/70 H 151/72 H Blood Pressure Mean 92 97 98 Pulse Oximetry 98 98 95 Oxygen Delivery Method Room Air Room Air Room Air Sepsis Recent Fever Within 48 Hours Sepsis New/Unexplained Change in Mental Status Sepsis Action Taken by Nursing Constitutional: Vital signs reviewed. Eyes: Pupils are equal round reactive to light. Conjunctiva are noninjected. ENT: Pharynx is clear without erythema or exudate. Mucous membranes are moist. Neck supple without meningeal signs. No midline tenderness to the cervical spine. Respiratory: Clear to auscultation bilaterally. Breath sounds are equal bilaterally. Cardiovascular: Regular rate and rhythm. No rubs or gallops. GI: Soft, nondistended and nontender. Bowel sounds are present. Musculoskeletal: No peripheral edema. No hip or lower extremity tenderness. Tenderness to the mid thoracic spine. No step-off or deformity. No tenderness to the lumbar spine or to the shoulders. Integumentary: No cyanosis. or jaundice. Neurological: The patient is awake and alert. No focal deficits. Psychiatric: Normal affect. Not anxious appearing. Course Administered Medications Sodium Chloride (Nss) 500 mls @ 125 mls/hr IV .Q4H [place] Stop: 01/25/21 21:14 Last Admin: 12/26/20 21:34 Dose: 125 mls/hr Documented by: [id number] Medical Decision Making Differential Diagnosis Generalized weakness, deconditioning, metabolic derangement, infection, cardiac, anemia Medical Records Attestation: I reviewed the patient's medical records. I did perform a limited focused review of portions of the patient's old chart on the electronic medical record. The patient was just admitted to the hospital for generalized weakness and falls. He was discharged on the . Home Medications Current Medication List: was personally reviewed by me Laboratory Data Attestation: I reviewed the patient's lab results. Result diagrams: 12/26/20 19:49 12/26/20 19:49 Lab Results 12/26/20 12/26/20 12/26/20 Range/Units 19:49 19:49 19:59 WBC 8.52 (4.8-10.8) K/uL RBC 4.67 L (4.7-6.1) M/uL Hgb 14.4 (14.0-18.0) g/dL Hct 41.4 L (42-52) % MCV 88.7 (80-100) fL MCH 30.8 (25-34) pg MCHC 34.8 (32-36) g/dL RDW Std Deviation 40.6 (36.4-46.3) fL RDW Coeff of Дмитрий 12.8 (11.5-14.5) % Plt Count 240 (130-400) K/uL MPV 11.9 H (7.4-10.4) fL Immature Gran % (Auto) 0.4 % Neut % (Auto) 71.3 % Lymph % (Auto) 16.1 % [place] % (Auto) 10.7 % Eos % (Auto) 1.1 % Baso % (Auto) 0.4 % Neut # (Auto) 6.09 (1.4-6.5) K/uL Lymph # (Auto) 1.37 (1.2-3.4) K/uL [place] # (Auto) 0.91 H (0.11-0.59) K/uL Eos # (Auto) 0.09 (0-0.5) K/uL Baso # (Auto) 0.03 (0-0.2) K/uL Immature Gran # (Auto) 0.03 H (0.00-0.02) K/uL Sodium 137 (136-145) mmol/L Potassium 4.7 (3.5-5.1) mmol/L Chloride 106 (98-107) mmol/L Carbon Dioxide 26 (21-32) mmol/L Anion Gap 5.0 (3-11) BUN 52 H (7-18) mg/dl Creatinine 1.99 H (0.6-1.4) mg/dl Est Cr Clr Drug Dosing Not Reportable Est GFR ( Amer) 40.2 ml/min Est GFR (Non-Af Amer) 34.7 ml/min BUN/Creatinine Ratio 26.0 H (10-20) Glucose 300 H (70-99) mg/dl Calcium 8.7 (8.5-10.1) mg/dl Total Bilirubin 0.8 (0.2-1) mg/dl AST 7 L (15-37) U/L ALT 24 (12-78) U/L Alkaline Phosphatase 88 (45-117) U/L Troponin I < 0.015 (0-0.045) ng/ml Total Protein 6.9 (6.4-8.2) gm/dl Albumin 3.4 (3.4-5.0) gm/dl Globulin 3.5 (2.5-4.0) gm/dl Albumin/Globulin Ratio 1.0 (0.9-2) TSH 2.440 (0.300-4.500) uIu/ml COVID-19 Eval Order Covid19 at [facility] SARS-CoV-2 (PCR) (Negative) 12/26/20 Range/Units 19:59 WBC (4.8-10.8) K/uL RBC (4.7-6.1) M/uL Hgb (14.0-18.0) g/dL Hct (42-52) % MCV (80-100) fL MCH (25-34) pg MCHC (32-36) g/dL RDW Std Deviation (36.4-46.3) fL RDW Coeff of Дмитрий (11.5-14.5) % Plt Count (130-400) K/uL MPV (7.4-10.4) fL Immature Gran % (Auto) % Neut % (Auto) % Lymph % (Auto) % [place] % (Auto) % Eos % (Auto) % Baso % (Auto) % Neut # (Auto) (1.4-6.5) K/uL Lymph # (Auto) (1.2-3.4) K/uL [place] # (Auto) (0.11-0.59) K/uL Eos # (Auto) (0-0.5) K/uL Baso # (Auto) (0-0.2) K/uL Immature Gran # (Auto) (0.00-0.02) K/uL Sodium (136-145) mmol/L Potassium (3.5-5.1) mmol/L Chloride (98-107) mmol/L Carbon Dioxide (21-32) mmol/L Anion Gap (3-11) BUN (7-18) mg/dl Creatinine (0.6-1.4) mg/dl Est Cr Clr Drug Dosing Est GFR ( Amer) ml/min Est GFR (Non-Af Amer) ml/min BUN/Creatinine Ratio (10-20) Glucose (70-99) mg/dl Calcium (8.5-10.1) mg/dl Total Bilirubin (0.2-1) mg/dl AST (15-37) U/L ALT (12-78) U/L Alkaline Phosphatase (45-117) U/L Troponin I (0-0.045) ng/ml Total Protein (6.4-8.2) gm/dl Albumin (3.4-5.0) gm/dl Globulin (2.5-4.0) gm/dl Albumin/Globulin Ratio (0.9-2) TSH (0.300-4.500) uIu/ml COVID-19 Eval Order SARS-CoV-2 (PCR) POSITIVE A* (Negative) Imaging Data Radiologist's Impression: Chest X-Ray 12/26/20 19:51 XR chest 1V portable HISTORY: weakness COMPARISON: Chest 12/18/2020. FINDINGS: No pneumothorax. No pleural effusions. The heart remains borderline enlarged. There are old, healed left-sided rib fractures. The lungs are clear. No evidence for pulmonary edema. IMPRESSION: No significant change compared to the prior study. No acute process. ACT 112: Negative or not required by law. Electronically signed by: Efren Kenney M.D. 12/26/2020 8:47 PM Thoracic Spine X-Ray 12/26/20 19:54 THORACIC SPINE 3 VIEWS HISTORY: Back pain/fall eval for fx COMPARISON: None. FINDINGS: Minimal anterior wedging within the lower thoracic spine vertebral bodies is likely chronic. No definite acute fractures identified. No subluxation. Mild disc space narrowing within the lower thoracic spine consistent with degenerative changes. IMPRESSION: 1. No acute fracture or subluxation within the thoracic spine. 2. Degenerative changes and minimal anterior wedging within the lower thoracic spine which is likely chronic. ACT 112: Negative or not required by law. Electronically signed by: Efren Kenney M.D. 12/26/2020 8:49 PM ECG Data Attestation: I personally reviewed and interpreted this ECG as follows: Indication: + weakness Rate (beats per minute): 64 Rhythm: + normal sinus ECG Intervals/blocks: + Normal QRS ECG ST segments: + T-wave inversions (aVL only) ECG Findings: no PVCs MDM Narrative I did evaluate the patient as noted above. The patient was just admitted to the hospital for generalized weakness. He was discharged home a week ago and has been extremely weak at home. Today he comes in because he fell onto his back and cannot manage to take care of himself at home. He has no new additional complaints today except for some back pain where he fell. He denies any head injury. IV access was established. I did treat him with normal saline IV. I did place an order for continuous cardiac monitoring. The monitor showed normal sinus rhythm at a rate of 64 bpm. I did order and personally review the patient's 12-lead EKG as described above. He has no acute ischemic changes on twelve-lead EKG. I did order and personally reviewed the images of the patien t's chest x-ray as described above. There is no evidence of pneumonia. I did order and review the patient's blood work as noted in the electronic medical record. His white blood cell count is not elevated. He is not anemic. Electrolytes are unremarkable. His creatinine is elevated 1.99. He was discharged recently with a creatinine of 1.3. His glucose is elevated at 300. Presently his Covid test came back positive. He does not have any respiratory symptoms. He had negative Covid test about a week ago. The patient will be hospitalized for further care and evaluation. I did discuss case with the hospitalist and rehabilitation case coordinator. Impression & Plan Acute thoracic back pain, Acute hyperglycemia, Fall, Elevated serum creatinine, COVID-19, Generalized weakness Discharge Plan Visit Data Chief Complaint: Weakness Stated Complaint: WEAKNESS ED Provider: Kwabena Quiroz Discharge Problem: Acute thoracic back pain, Acute hyperglycemia, Fall, Elevated serum creatinine, COVID-19, Generalized weakness Patient Disposition: Being Evaluated by Hospitalist Forms Stand Alone Forms: My [facility] Prescriptions Prescriptions: No Action amlodipine 5 mg tablet 5 mg PO QAM RF: 0 aspirin [Aspirin Low Dose] 81 mg Tablet,Delayed Release (Dr/Ec) 81 mg PO QAM RF: 0 gabapentin 300 mg capsule 600 mg PO BID RF: 0 insulin aspart U-100 [Novolog Flexpen U-100 Insulin] 100 unit/mL (3 mL) insulin pen 8 unit subcut HS RF: 0 Lantus Solostar U-100 Insulin 100 unit/mL (3 mL) insulin pen 35 unit SUBCUT QAM RF: 0 atorvastatin 40 mg Tablet 40 mg PO HS Qty: 30 RF: 0 meclizine 25 mg Tablet 25 mg PO Q8H PRN (Reason: dizziness) Qty: 15 RF: 0 losartan 25 mg Tablet 25 mg PO QAM Qty: 30 RF: 0 fexofenadine-pseudoephedrine [Merari-D 12 Hour] 60-120 mg Tablet Extended Release 12 Hr 1 tab PO BID Qty: 14 RF: 0 Referrals Referrals: Bravo Robles MD [Primary Care Provider] - Discharge Problem: Acute thoracic back pain Qualifiers: Back pain laterality: midline Qualified Code(s): M54.6 - Pain in thoracic spine Fall Qualifiers: Encounter type: initial encounter Qualified Code(s): W19.XXXA - Unspecified fall, initial encounter
[2020-12-26 20:00] LABS: Basophils # (auto) 0.03 K/uL (0-0.2); Basophils % (auto) 0.4 %; Eosinophils # (auto) 0.09 K/uL (0-0.5); Eosinophils % (auto) 1.1 %; Hematocrit (blood only) 41.4 % (42-52); Hemoglobin 14.4 g/dL (14.0-18.0); Immature Granulocytes # (auto) 0.03 K/uL (0.00-0.02); Immature Granulocytes % (auto) 0.4 %; Lymphocytes # (auto) 1.37 K/uL (1.2-3.4); Lymphocytes % (auto) 16.1 %; Mean Corpuscular Hemoglobin 30.8 pg (25-34); Mean Corpuscular Hgb Conc 34.8 g/dL (32-36); Mean Corpuscular Volume 88.7 fL (80-100); Mean Platelet Volume 11.9 fL (7.4-10.4); Monocytes # (auto) 0.91 K/uL (0.11-0.59); Monocytes % (auto) 10.7 %; Neutrophils # (auto) 6.09 K/uL (1.4-6.5); Neutrophils % (auto) 71.3 %; Platelet Count 240 K/uL (130-400); RDW Coefficient of Variation 12.8 % (11.5-14.5); RDW Standard Deviation 40.6 fL (36.4-46.3); Red Blood Count 4.67 M/uL (4.7-6.1); White Blood Count 8.52 K/uL (4.8-10.8)
--- NOTE | 2020-12-26 20:48 | XRay Report ---
XR chest 1V portable HISTORY: weakness COMPARISON: Chest 12/18/2020. FINDINGS: No pneumothorax. No pleural effusions. The heart remains borderline enlarged. There are old , healed left-sided rib fractures. The lungs are clear. No evidence for pulmonary edema. IMPRESSION: No significant change compared to the prior study. No acute process. ACT 112: Negative or not required by law. Electronically signed by: Efren Kenney M.D. 12/26/2020 8:47 PM
--- NOTE | 2020-12-26 20:51 | XRay Report ---
THORACIC SPINE 3 VIEWS HISTORY: Back pain/fall eval for fx COMPARISON: None. FINDINGS: Minimal anterior wedging within the lower thoracic spine vertebral bodies is likely chronic . No definite acute fractures identified. No subluxation. Mild disc space narrowing within the lower thoracic spine consistent with degenerative changes. IMPRESSION: 1. No acute fracture or subluxation within the thoracic spine. 2. Degenerative changes and minimal anterior wedging within the lower thoracic spine which is likely chronic. ACT 112: Negative or not required by law. Electronically signed by: Efren Kenney M.D. 12/26/2020 8:49 PM
[2020-12-26 20:52] LABS: Alanine Aminotransferase 24 U/L (12-78); Albumin Level 3.4 gm/dl (3.4-5.0); Alkaline Phosphatase 88 U/L (45-117); Aspartate Aminotransferase 7 U/L (15-37); Bilirubin,Total 0.8 mg/dl (0.2-1); Blood Urea Nitrogen 52 mg/dl (7-18); Calcium 8.7 mg/dl (8.5-10.1); Carbon Dioxide 26 mmol/L (21-32); Chloride 106 mmol/L (98-107); Est GFR (African American) 40.2 ml/min; Est GFR (Non-African American) 34.7 ml/min; Globulin 3.5 gm/dl (2.5-4.0); Glucose 300 mg/dl (70-99); Potassium 4.7 mmol/L (3.5-5.1); Sodium 137 mmol/L (136-145); Total Protein 6.9 gm/dl (6.4-8.2); Troponin I < 0.015 ng/ml (0-0.045)
[2020-12-26] MEDS: SODIUM CHLORIDE 0.9% 500 ML IV SCH (21:34)
[2020-12-27] MEDS ORDERED: ONDANSETRON INJ 2 MG/ML 2 ML VIAL IV PRN (01:58)
[2020-12-27] MEDS ORDERED: MECLIZINE HCL 25 MG TAB PO PRN (01:58)
[2020-12-27] MEDS ORDERED: ACETAMINOPHEN 325 MG TAB PO PRN (01:58)
[2020-12-27] MEDS ORDERED: POLYETHYLENE (MIRALAX) 17 GM PACK PO PRN (01:58)
[2020-12-27] MEDS ORDERED: SODIUM CHLORIDE 0.9% 1000ML 1,000 ML IV SCH (01:58)
[2020-12-27] MEDS ORDERED: CARBOHYDRATES FOR HYPOGLYCEMIA PO PRN (02:15)
[2020-12-27] MEDS ORDERED: GLUCAGON FOR INJ 1 MG VIAL IM PRN (02:15)
[2020-12-27] MEDS ORDERED: GLUCOSE 40% GEL 15 GM TUBE PO PRN (02:15)
[2020-12-27] MEDS ORDERED: DEXTROSE 50% 50 ML SYRINGE IV PRN (02:15)
[2020-12-27] MEDS ORDERED: GLUCOSE 10 TABS/TUBE PO PRN (02:15)
[2020-12-27] MEDS: INSULIN ASPART 100 UNITS/ML 3 ML PEN SC SCH ×5 (02:31→22:05)
--- NOTE | 2020-12-27 02:56 | History and Physical Report ---
DATE OF ADMISSION: 12/27/2020. CHIEF COMPLAINT: Weakness. HISTORY OF PRESENT ILLNESS: This is a 65-year-old male with past medical history significant for type 1 diabetes, diabetic neuropathy, hyperlipidemia, allergic rhinitis, peripheral vascular disease, hypertension, right eye vitreous hemorrhage, trigeminal neuralgia, who presents with weakness. He was recently here for the dizziness and weakness, and was discharged. Thought to be possibly from autonomic dysfunction secondary to diabetic neuropathy discharged on DIONISIO hose. At that time, also had acute renal failure on chronic kidney disease. On discharge, labs were back to baseline. The patient lives with his brother. He is saying he is mostly sleeping at home, he is feeling dizzy and weakness. Appetite is okay. Denies any headache. No chest pain, no shortness of breath, no cough, no fever, no chills, no blurred visions, no earache, no runny nose, no sore throat, no dysphagia, no nausea, no abdominal pain, normal bowel and bladder movements, no rash. Currently, resting comfortably and hemodynamically stable. Speaking in a somewhat lower voice. ALLERGIES: TO LEVAQUIN AND SHRIMP. PAST MEDICAL HISTORY: As mentioned above. PAST SURGICAL HISTORY: Right great toe amputation, colonoscopy, excision of infected sebaceous cyst over right shoulder, I and D of left foot and heel, laser trabeculoplasty, partial removal of the eye fluid, cataract removal. MEDICATIONS: The patient is on amlodipine 5 mg p.o. a.m., aspirin 81 mg p.o. a.m., atorvastatin 40 mg p.o. at bedtime, Merari-D one tablet p.o. b.i.d., gabapentin 600 mg p.o. b.i.d., insulin 8 units subcutaneously at bedtime, Lantus 35 units subcutaneous a.m., losartan 25 mg p.o. a.m., meclizine 25 mg p.o. q. 8 hours p.r.n. FAMILY HISTORY: Significant for brother has diabetes; father has diabetes, hypertension; brother has hypertension. SOCIAL HISTORY: Single. No smoking. Alcohol, social drinking. No drug use. REVIEW OF SYSTEMS: As per HPI. Rest of the review of systems negative. PHYSICAL EXAMINATION: GENERAL: The patient is of moderate build, not in acute distress. VITAL SIGNS: Temperature 36.3, pulse 64, respiratory rate 24, blood pressure 158/69, oxygen 92% on room air. HEENT: Pupils are equal, round and reactive to light. Oral mucosa moist. NECK: No JVD, no neck masses. CARDIOVASCULAR: S1 and S2 heard. Regular rate and rhythm. No murmur, no gallop. RESPIRATORY: Normal AP diameter. No accessory muscle use. No wheezing, no crackles. ABDOMEN: Soft, bowel sounds present, nontender, no distention. CENTRAL NERVOUS SYSTEM: Cranial nerves II-XII are grossly intact, nonfocal. EXTREMITIES: No edema, no erythema. LABORATORY DATA: WBC 8.5, hemoglobin 14.4, hematocrit 41.4, platelets 240. Sodium 137, potassium 4.7, chloride 106, bicarb 26, BUN 52, creatinine 1.9, serum glucose 300, calcium 8.7, total bilirubin 0.8, AST 7, ALT 24, alkaline phosphatase 88. Troponin I less than 0.015. TSH 2.4. SARS-CoV-2 PCR positive. IMAGING DATA: Thoracic x-ray, no acute fracture. Chest x-ray, no acute process. EKG: Normal sinus rhythm at a rate of 64, no acute ST changes seen. ASSESSMENT AND PLAN: This is a 65-year-old male, who presents with ongoing weakness. 1. Weakness and dizziness: Sleeping all the time at home. The patient says he had COVID in August and August and a few weeks after that he had COVID vaccine. The patient was in the hospital with dizziness and weakness and sent home on DIONISIO hose. Today, his SARS-CoV-2 PCR was positive, but chest x-ray showed no active infiltrates. The patient is asymptomatic. The patient had received COVID vaccine. Symptoms could be post COVID syndrome. The patient seemed to be also started on Zoloft for depression. Will observe in the hospital. PT/OT. Gentle fluids. Orthostatics. 2. Acute kidney injury on chronic kidney disease stage III: Baseline creatinine seemed to be around 1.6-1.7, currently with a creatinine of 1.9. Getting fluids. Avoid nephrotoxic agents. Follow the repeat labs in a.m. 3. History of type 1 diabetes: Continue home Lantus, insulin sliding scale. Will follow the blood sugars. 4. History of hypertension: Continue amlodipine .Will hold the losartan. Restart when the kidney function is normalized.. Monitor the blood pressure. 5. Deep venous thrombosis prophylaxis: Heparin subQ. DISPOSITION: Closely monitor in the medical floor. Level 1 full code. PT/OT. To be determined. Job ID: [id number] [facility]
[2020-12-27] MEDS: SODIUM CHLORIDE 0.9% 500 ML IV SCH (03:36)
[2020-12-27] MEDS: HEPARIN SOD 5,000 UNIT/0.5 ML VIAL SQ SCH ×3 (06:14→21:39)
[2020-12-27 07:47] LABS: Basophils # (auto) 0.02 K/uL (0-0.2); Basophils % (auto) 0.3 %; Eosinophils % (auto) 1.6 %; Hematocrit (blood only) 43.3 % (42-52); Hemoglobin 14.8 g/dL (14.0-18.0); Immature Granulocytes # (auto) 0.03 K/uL (0.00-0.02); Immature Granulocytes % (auto) 0.5 %; Lymphocytes # (auto) 1.53 K/uL (1.2-3.4); Lymphocytes % (auto) 24.6 %; Mean Corpuscular Hemoglobin 30.4 pg (25-34); Mean Corpuscular Hgb Conc 34.2 g/dL (32-36); Mean Corpuscular Volume 88.9 fL (80-100); Mean Platelet Volume 11.7 fL (7.4-10.4); Monocytes # (auto) 0.69 K/uL (0.11-0.59); Monocytes % (auto) 11.1 %; Neutrophils # (auto) 3.84 K/uL (1.4-6.5); Neutrophils % (auto) 61.9 %; Platelet Count 210 K/uL (130-400); RDW Coefficient of Variation 12.7 % (11.5-14.5); RDW Standard Deviation 41.2 fL (36.4-46.3); Red Blood Count 4.87 M/uL (4.7-6.1); White Blood Count 6.21 K/uL (4.8-10.8)
[2020-12-27 08:11] LABS: BUN Creatinine Ratio 28.7 (10-20); Calcium 9.1 mg/dl (8.5-10.1); Creatinine Clr Calc Pharmacy 51.7 ml/min; Est GFR (African American) 56.2 ml/min; Est GFR (Non-African American) 48.5 ml/min; Magnesium 2.4 mg/dl (1.8-2.4); Potassium 4.2 mmol/L (3.5-5.1)
[2020-12-27 08:25] LABS: Estimated Average Glucose 212 mg/dl; Lyme Ab IgG w/WB Rflx Negative (Negative); Lyme Ab IgM w/WB Rflx Negative (Negative)
[2020-12-27] MEDS: ASPIRIN 81 MG ECTAB PO SCH (09:47)
[2020-12-27] MEDS: FEXOFENADINE 60 MG TAB PO SCH ×2 (09:47→21:39)
[2020-12-27] MEDS: amLODIPine BESYLATE 5 MG TAB PO SCH (09:47)
[2020-12-27] MEDS: GABAPENTIN 300 MG CAP PO SCH ×2 (09:48→21:39)
[2020-12-27] MEDS: INSULIN GLARGINE SOLOSTAR 100 UNITS/ML 3 ML PEN SQ SCH (10:04)
[2020-12-27 15:57] LABS: Appearance Urine Clear (Clear); Bacteria Urine Automated Negative (Negative); Bilirubin Urine Negative (Negative); Blood Urine Negative (Negative); Color Urine Yellow; Epithelial Cell Urine Auto 0-5 /lpf (0-5); Glucose Urine UA 2+ (Negative); Ketones Urine Negative (Negative); Leukocyte Esterase Urine Negative (Negative); Nitrite Urine Negative (Negative); Protein Urine 1+ (Negative); RBC Urine Automated 0-4 /hpf (0-4); Specific Gravity Urine 1.019 (1.000-1.030); Urobilinogen Urine Negative (Negative); WBC Urine Automated 0 /hpf (0-5)
--- NOTE | 2020-12-27 17:05 | Communication Note ---
Date of Service: December 27, 2020 I have been asked to evaluate Mr. Lovelace today because apparently of some family concerns about him having recurrent CV 80s. He is a man with type 1 diab etes diabetic neuropathy gait disturbance due to the neuropathy, probable orthostatic hypotension due to the effects of his diabetic autonomic neuropathy and with a history of prior right retinal hemorrhage and probable remote cerebrovascular accidents demonstrable by CT and MRI with the MRI in July of this year showing multiple small old infarctions in the right cerebellum ender and both thalami in addition to some leukoencephalopathy but none is appear to be acute Other problems include what may be recurrent COVID-19 in the setting of prior COVID-19 and is now on isolation, hyperglycemia with an elevated hemoglobin A1c of 9, emerging renal failure, diabetic ulcer left foot, a pulmonary nodule, chronic renal failure stage III with superimposed increased renal dysfunction, hyperlipidemia, peripheral vascular disease, status post amputation of the right lesser toe and osteomyelitis of the left foot Medications at home include amlodipine aspirin atorvastatin fexofenadine, gabapentin 600 mg twice a day for neuropathy, insulin in various forms, losartan, meclizine given for episodes of dizziness which may well be orthostatic hypotension He was just discharged in the hospital on and now is back in due to increasing lethargy at home and has been found to be more hyperglycemic and is being treated appropriately At some point apparently family members are similarly and is having recurrent vascular events and neurology has been consulted today but I cannot find good documentation of this other than the request for the consult and the patient himself is of little value today in terms of history for vascular events He denies much in the way of headaches complains of right monocular visual loss following his retinal hemorrhage has trouble with his articulation but he claims this is chronic and I suspect is due to his prior strokes, talks about some numbness and weakness in his feet and has a low-grade cough but he denies any real fever he does note any specific cardiovascular pulmonary gastrointestinal genitourinary musculoskeletal dermatologic complaints otherwise Family history is positive for diabetes in a brother Social history reveals a be living with his brother non-smoker nonconsumer of ethanol and not employed at present time Exam today reveals him to have a blood pressure 153/77 pulse is 64 and regular respirations are 16 he is afebrile in fact is a little hypothermic and his O2 saturations are 97% on room air He is awake alert has an articulatory disturbance may have a slight left facial asymmetry is reduced monocular vision in the right eye but has no real nystagmus and no limitations of eye movements other than a reluctance to gaze to the right due to visual loss. 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 [id number] movement is limited primarily because of his neuropathy I am not sure he really knows where his feet are in space but when he looks downward he can move the feet reasonably well. I could not get him to coordinate his movements sufficiently to sit up in bed he with my assistance and he tended to fall backwards and was a little on the lethargic side and inattentive when asked to perform these maneuvers Reflexes are absent at the ankles knees and hypoactive in the upper extremities toes are downgoing strength testing reveals grade 1-2 distal weakness of the lower extremities with intact upper extremity strength and minimal atrophy of hand muscles but some warm pronounced atrophy of the anterior compartment muscles again consistent with neuropathy sensory examination reveals reduced vibration light touch and proprioception below the knees and is normal in the hands Certainly this man could have accumulated some small infarctions since last MRI in July. I do not have a good baseline for his examination but some of the deficits I see here are probably reflective of the pontine lesion on the right with a mild left hemiparesis and articulatory disturbances and the cerebellar infarctions are not helping here. His visual system is also impaired because of monocular visual loss in the right and he has a significant neuropathy with loss of proprioception and I do not doubt that he does have some orthostatic changes when he attempts to stand are reflective of an autonomic neuropathy His fall risk is extremely high and of multifactorial causation He is already on aspirin we have not documented any cardiogenic source of embolism He is on Covid isolation and if this could be lifted then I would suggest that we do a noncontrast MRI of the brain just to see if he has had any recent infarctions or evidence that might suggest embolic phenomena He has had CT angiography within the last year which does show intracranial vascular disease in the posterior circulation so I think this probably explains most of the small vessel infarctions we see on MRI but again I cannot absolutely say that he has not had new strokes between July and the present time in light of the renal disease I do not feel that ct angiography needs repeated My suggestion would be to have a noncontrast brain MRI done when it is felt safe to have him off the floor and noninfectious I certainly would check orthostatic blood pressures and if hypotension continues to be an issue or a major orthostatic drop is seen then he might be considered a candidate for midodrine or Florinef but this will be up to his primary care team Obviously the blood sugar needs brought under better control but again this is going to be up to the primary care team At this point I am going to just follow him by computer and go to go through the [employer] records to make sure I have not seen him in the past as he does look quite familiar but he denies having been in contact with me previously I really do not see the need to add any additional anticoagulation or antiplatelet drugs at this point unless we document a cardiogenic source of embolism or he develops paroxysmal atrial fibrillation or once MRI is done we see evidence for a very recent infarct at which point we may add Plavix to his drug regimen for 21 days Bravo Patricia MD
[2020-12-27] MEDS: ATORVASTATIN 40 MG TAB PO SCH (21:39)
[2020-12-27] MEDS ORDERED: COUGH DROP (SUGAR FREE) LOZ 24 LOZ/1 BOX BUCCAL PRN (22:38)
[2020-12-27] MEDS ORDERED: CLOPIDOGREL BISULFATE 75 MG TAB PO ONE (23:14)
[2020-12-28] MEDS: HEPARIN SOD 5,000 UNIT/0.5 ML VIAL SQ SCH ×3 (05:50→21:10)
--- NOTE | 2020-12-28 07:38 | Magnetic Resonance Report ---
Brain MRI WITHOUT CONTRAST HISTORY: Difficulty ambulating. Family concern for CVA TECHNIQUE: Multiplanar multisequence MRI of the brain was performed without the use of contrast. COMPARISON STUDY: Head CT 12/18/2020. FINDINGS: Small focal area of restricted diffusion seen within the left cerebral peduncle and extendi ng into the left thalamus consistent with an acute infarct. Artifact versus a second small focus of r estricted diffusion within the right medial temporal lobe on image 10. There are few old pontine lacu tamiko infarcts. The major vascular flow-voids at the skull base are well-maintained. The ventricles and sulci demonstrate moderate age-related involutional changes. Minimal mucosal thickening within the p aranasal sinuses. The mastoid air cells are clear. Evidence for bilateral lens replacement. No mass, hematoma, midline shift. Mild periatrial white matter T2 hyperintensity is nonspecific but favors wenceslao rovascular ischemic change. IMPRESSION: 1. A small acute infarct involving the left cerebral peduncle and left thalamus. 2. An additional small focus of restricted diffusion within the right medial temporal lobe. This coul d be artifact or represent a second small infarct. 3. Atrophy and microvascular ischemic changes are noted. ACT 112: Negative or not required by law. Electronically signed by: Efren Kenney M.D. 12/28/2020 7:36 AM
--- NOTE | 2020-12-28 09:16 | Hospitalist Progress Note ---
Date of Service December 28, 2020 Assessment & Plan (1) CVA (cerebral vascular accident): (2) Acute hyperglycemia: (3) Falls frequently: (4) Generalized weakness: (5) CKD (chronic kidney disease) stage 3, GFR 30-59 ml/min: (6) HLD (hyperlipidemia): (7) HTN (hypertension): (8) PVD (peripheral vascular disease): (9) Diabetic neuropathy: ASSESSMENT AND PLAN: This is a 65-year-old male, who presents with ongoing weakness. 1. Weakness and dizziness secondary to acute CVA: Sleeping all the time at home. The patient says he had COVID in August and August and a few weeks after that he had COVID vaccine. The patient was in the hospital with dizziness and weakness and sent home on DIONISIO hose. Today, his SARS-CoV-2 PCR was positive, but chest x-ray showed no active infiltrates. The patient is asymptomatic. The patient had received COVID vaccine. Symptoms could be post COVID syndrome. The patient seemed to be also started on Zoloft for depression. Will observe in the hospital. PT/OT. Gentle fluids. Orthostatics. 2. Acute kidney injury on chronic kidney disease stage III: Baseline creatinine seemed to be around 1.6-1.7, currently with a creatinine of 1.9. Getting fluids. Avoid nephrotoxic agents. Follow the repeat labs in a.m. 3. History of type 1 diabetes: Continue home Lantus, insulin sliding scale. Will follow the blood sugars. 4. History of hypertension: Continue amlodipine .Will hold the losartan. Restart when the kidney function is normalized.. Monitor the blood pressure. 5. Deep venous thrombosis prophylaxis: Heparin subQ. labs checked ROS-No Headache, No Visual Changes, No Nausea, No Vomiting, No Fever, No Chills, No Neck Pain or Stiffness, No Chest Pain, No Palpitations, No SOB, No MARIE, No Cough, No Sputum, No Wheezing, No Abdominal Pain, No Diarrhea, No Hematemesis, No Hemoptysis, No Unexpected Weight Loss, No Flank pain, No Melena, No Hematochezia, No Frequency, No Urgency, No Burning, No Hematuria, No Rashes, No Diaphoresis. Appetite is Normal Physical Exam Gen-AAO x 3, NAD, Afebrile Head-NCAT, EOMI, PERRLA, Anicteric Sclera, No Posterior Pharyngeal Erythema Neck-Supple, No JVD, No Thyromegaly, No Masses, No LAD, No Bruits Lungs-Clear to Auscultation Bilaterally, No Rales, No Rhonchi, No Wheezing, No Crepitus Chest-No S4, +S1, +S2, No S3, No Murmurs, No Rubs, No Gallops, No Ectopy Abdomen-Soft, Bowel Sounds Present, Non Tender, Non Distended, No Hepatomegaly, No Splenomegaly, No Palpable Masses, No Rebound, No Rigidity, No Guarding Musculoskeletal-Full Range of Motion Bilaterally, No CVAT Extremities-No Cyanosis, No Clubbing, No Edema Nuero-Cranial Nerves II-XII grossly intact, Motor WNL, DTRs WNL, Strength WNL, Non Focal Psych-Normal Mood Admission and Anticipated Discharge Date Admission Date: December 27, 2020 Results & Data Results & Data ([place]) Vital Signs (Past 12 Hours) Vital Signs Temp Pulse Resp BP Pulse Ox 12/28/20 08:28 36.9 C 70 18 158/87 H 95
[2020-12-28] MEDS: INSULIN GLARGINE SOLOSTAR 100 UNITS/ML 3 ML PEN SQ SCH (09:33)
[2020-12-28] MEDS: FEXOFENADINE 60 MG TAB PO SCH ×2 (09:33→20:56)
[2020-12-28] MEDS: CLOPIDOGREL BISULFATE 75 MG TAB PO SCH (09:33)
[2020-12-28] MEDS: GABAPENTIN 300 MG CAP PO SCH ×2 (09:33→20:57)
[2020-12-28] MEDS: INSULIN ASPART 100 UNITS/ML 3 ML PEN SC SCH ×4 (09:34→21:42)
[2020-12-28] MEDS: ASPIRIN 81 MG ECTAB PO SCH (09:53)
[2020-12-28] MEDS: amLODIPine BESYLATE 5 MG TAB PO SCH (09:53)
[2020-12-28] MEDS ORDERED: CLOPIDOGREL BISULFATE 75 MG TAB PO SCH (11:00)
--- NOTE | 2020-12-28 12:33 | Electrocardiogram Report ---
Test Reason : Blood Pressure : / mmHG Vent. Rate : 064 BPM Atrial Rate : 064 BPM P-R Int : 154 ms QRS Dur : 070 ms QT Int : 402 ms P-R-T Axes : 025 -12 086 degrees QTc Int : 414 ms Normal sinus rhythm Anteroseptal infarct Abnormal ECG When compared with ECG of 18-DEC-2020 17:47, No significant change Confirmed by Brad Fox ([id number]) on 12/28/2020 12:32:49 PM Referred By: REFERRED SELF Confirmed By:Brad Fox
--- NOTE | 2020-12-28 12:49 | Electrocardiogram Report ---
Test Reason : Blood Pressure : / mmHG Vent. Rate : 061 BPM Atrial Rate : 061 BPM P-R Int : 178 ms QRS Dur : 088 ms QT Int : 430 ms P-R-T Axes : 060 029 072 degrees QTc Int : 432 ms Normal sinus rhythm Normal ECG When compared with ECG of 26-DEC-2020 19:41, (unconfirmed) Questionable change in QRS duration Confirmed by Brad Fox ([id number]) on 12/28/2020 12:49:00 PM Referred By: REFERRED SELF Confirmed By:Brad Fox
--- NOTE | 2020-12-28 15:39 | Communication Note ---
Date of Service: December 28, 2020 I have reviewed the results of the MRI scan done today and notes that there is now evidence for acute new small vessel infarctions in the left thalamic region and ender and this coupled with the prior infarctions, his retinal hemorrhage are probably sufficient to explain his lethargy and change in mental status over the last several days but it is difficult to pick out any new deficits on exam because of his lethargy and the presence of prior findings referable to his right cerebellar and pontine infarctions with a mild left hemiparesis He does have on prior CT angiographic studies intracranial small vessel disease most prominent in the posterior circulation so I think his current small vessel infarctions represent this issue rather than cardioembolic events but I would suggest that he have an echocardiogram done and based on had something done recently on outpatient basis just to be sure that there is no laminated thrombus or clear cardiogenic source for embolization At this point he clearly should have Plavix added to his aspirin and I suspect this should be continued for a minimum of 21 days and then switched over to pure Plavix as the current events happened when he was on aspirin He should have an echocardiogram as noted above and I suspect on outpatient basis of Moris patch to be certain that there is no evidence for paroxysmal atrial fibrillation which of course would be very cold game changer" in terms of his anticoagulation program will probably put a novel anticoagulant into the mix in addition to an antiplatelet drug to small vessel intracranial disease He is going to need physical therapy probably rehabilitation and obviously control of his hyperglycemia once he is felt to be safe to be out of Covid isolation At this point neurology does not have a lot more to offer but I will try to arrange to have him seen in follow-up in about 4 weeks in our office or possibly by video or by telephonic depending on how difficult or inconvenient a live visit or video visit would be with the family Bravo Patricia MD
[2020-12-28] MEDS: ATORVASTATIN 40 MG TAB PO SCH (20:57)
[2020-12-29] MEDS: HEPARIN SOD 5,000 UNIT/0.5 ML VIAL SQ SCH ×3 (06:33→22:02)
--- NOTE | 2020-12-29 07:24 | Hospitalist Progress Note ---
Date of Service December 29, 2020 Assessment & Plan (1) CVA (cerebral vascular accident): (2) Acute hyperglycemia: (3) Falls frequently: (4) Generalized weakness: (5) CKD (chronic kidney disease) stage 3, GFR 30-59 ml/min: (6) HLD (hyperlipidemia): (7) HTN (hypertension): (8) PVD (peripheral vascular disease): (9) Diabetic neuropathy: ASSESSMENT AND PLAN: This is a 65-year-old male, who presents with ongoing weakness. 1. 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 The patient says he had COVID in August and August and a few weeks after that, he had COVID vaccine. The patient was in the hospital with dizziness and weakness and sent home on DIONISIO hose. On the day of his admission his SARS-CoV-2 PCR was positive, but chest x-ray showed no active infiltrates. The patient was asymptomatic. Symptoms could be post COVID syndrome. The patient seemed was started on Zoloft for depression. PT/OT. ASA and Plavix x 21 days then stop ASA, Continue Lipitor. Acute Rehab when out of isolation. 2. Acute kidney injury on chronic kidney disease stage III: Baseline creatinine seemed to be around 1.6-1.7, Avoid nephrotoxic agents. Monitor Daily labs. 3. History of type 1 diabetes: Continue home Lantus, insulin sliding scale. Will follow the blood sugars. 4. History of hypertension: Continue amlodipine .Will hold the losartan. Restart when the kidney function is normalized. Monitor the blood pressure. 5. Deep venous thrombosis prophylaxis: Heparin subQ. labs checked ROS-No Headache, No Visual Changes, No Nausea, No Vomiting, No Fever, No Chills, No Neck Pain or Stiffness, No Chest Pain, No Palpitations, No SOB, No MARIE, No Cough, No Sputum, No Wheezing, No Abdominal Pain, No Diarrhea, No Hematemesis, No Hemoptysis, No Unexpected Weight Loss, No Flank pain, No Melena, No Hematochezia, No Frequency, No Urgency, No Burning, No Hematuria, No Rashes, No Diaphoresis. Appetite is Normal Physical Exam Gen-AAO x 3, NAD, Afebrile Head-NCAT, EOMI, PERRLA, Anicteric Sclera, No Posterior Pharyngeal Erythema Neck-Supple, No JVD, No Thyromegaly, No Masses, No LAD, No Bruits Lungs-Clear to Auscultation Bilaterally, No Rales, No Rhonchi, No Wheezing, No Crepitus Chest-No S4, +S1, +S2, No S3, No Murmurs, No Rubs, No Gallops, No Ectopy Abdomen-Soft, Bowel Sounds Present, Non Tender, Non Distended, No Hepatomegaly, No Splenomegaly, No Palpable Masses, No Rebound, No Rigidity, No Guarding Musculoskeletal-Full Range of Motion Bilaterally, No CVAT Extremities-No Cyanosis, No Clubbing, No Edema Nuero-Cranial Nerves II-XII grossly intact, Motor WNL, DTRs WNL, Strength WNL, Non Focal Psych-Normal Mood Admission and Anticipated Discharge Date Admission Date: December 28, 2020 Results & Data Results & Data ([facility]) Vital Signs (Past 12 Hours) Vital Signs Temp Pulse Pulse Resp BP Pulse Ox 12/29/20 06:35 36.7 C 59 L 18 146/84 H 96 12/29/20 05:37 66 12/29/20 05:09 36.8 C 66 18 133/84 96 12/28/20 21:04 36.6 C 64 18 154/89 H 98
[2020-12-29] MEDS: GABAPENTIN 300 MG CAP PO SCH ×2 (09:02→22:02)
[2020-12-29] MEDS: FEXOFENADINE 60 MG TAB PO SCH ×2 (09:03→22:03)
[2020-12-29] MEDS: CLOPIDOGREL BISULFATE 75 MG TAB PO SCH (09:03)
[2020-12-29] MEDS: amLODIPine BESYLATE 5 MG TAB PO SCH (09:03)
[2020-12-29] MEDS: ASPIRIN 81 MG ECTAB PO SCH (09:03)
[2020-12-29] MEDS: INSULIN ASPART 100 UNITS/ML 3 ML PEN SC SCH ×4 (09:10→21:55)
[2020-12-29] MEDS: INSULIN GLARGINE SOLOSTAR 100 UNITS/ML 3 ML PEN SQ SCH (09:13)
[2020-12-29] MEDS: cefTRIAXone SODIUM 2,000 MG in DEXTROSE 5% 50 ML IV SCH (13:24)
[2020-12-29] MEDS: ATORVASTATIN 40 MG TAB PO SCH (22:03)
[2020-12-30] MEDS: HEPARIN SOD 5,000 UNIT/0.5 ML VIAL SQ SCH ×3 (06:24→21:21)
[2020-12-30 07:43] LABS: Hematocrit (blood only) 44.2 % (42-52); Hemoglobin 15.2 g/dL (14.0-18.0); Mean Corpuscular Hgb Conc 34.4 g/dL (32-36); Mean Corpuscular Volume 87.4 fL (80-100); Mean Platelet Volume 11.6 fL (7.4-10.4); Platelet Count 256 K/uL (130-400); RDW Coefficient of Variation 12.8 % (11.5-14.5); RDW Standard Deviation 40.6 fL (36.4-46.3); Red Blood Count 5.06 M/uL (4.7-6.1); White Blood Count 7.33 K/uL (4.8-10.8)
[2020-12-30 08:13] LABS: BUN Creatinine Ratio 25.3 (10-20); Calcium 9.6 mg/dl (8.5-10.1); Creatinine Clr Calc Pharmacy 46.5 ml/min; Est GFR (African American) 49.4 ml/min; Est GFR (Non-African American) 42.6 ml/min; Potassium 4.5 mmol/L (3.5-5.1)
[2020-12-30] MEDS: FEXOFENADINE 60 MG TAB PO SCH ×2 (08:43→21:22)
[2020-12-30] MEDS: CLOPIDOGREL BISULFATE 75 MG TAB PO SCH (08:43)
[2020-12-30] MEDS: GABAPENTIN 300 MG CAP PO SCH ×2 (08:43→21:22)
[2020-12-30] MEDS: ASPIRIN 81 MG ECTAB PO SCH (08:43)
[2020-12-30] MEDS: amLODIPine BESYLATE 5 MG TAB PO SCH (08:43)
[2020-12-30] MEDS: INSULIN ASPART 100 UNITS/ML 3 ML PEN SC SCH ×4 (08:57→21:04)
[2020-12-30] MEDS: INSULIN GLARGINE SOLOSTAR 100 UNITS/ML 3 ML PEN SQ SCH (08:59)
[2020-12-30] MEDS: cefTRIAXone SODIUM 2,000 MG in DEXTROSE 5% 50 ML IV SCH (09:05)
--- NOTE | 2020-12-30 09:50 | Orthopedic Consultation ---
Date of Consultation December 30, 2020 Assessment & Plan (1) Diabetic ulcer of right great toe: Deep ulceration right great toe amputation site. Patient states that this has been ongoing for 2 to 3 weeks. We will plan on getting x-rays at the very minimum of the right foot to rule out any changes in bony composition of the remaining bone of the amputation site. MERCEDES indexes ordered. I will discuss the case with Dr. Reynolds. Possibility of needing an MRI depending on what the current plain films will show. There is a chance that the patient will need a possible irrigation and debridement versus revision amputation of the amputation site. Patient noted to be on clopidogrel at this time. Patient is also eaten breakfast today and would likely negate an I&D today unless deemed emergent. This appears chronic in nature. Continue current IV antibiotics. Dr. Reynolds to assess later today for final decision. History of Present Illness Reason for Consultation: Open wound right great toe amputation site Attending Physician: Alen Dia MD History of Present Illness Patient is a 65-year-old white male known to our practice with history of multiple amputations of his toes by Dr. Reynolds in the past. Patient has a past medical history significant for type 1 diabetes, diabetic neuropathy, hyperlipidemia, allergic rhinitis, peripheral vascular disease, hypertension, right eye vitreous hemorrhage, trigeminal neuralgia. He was admitted for generalized weakness and was found to be Covid positive. Patient was asymptomatic and chest x-rays were clear. History of Covid vaccine and having Covid prior to his vaccine. This was felt to be a questionable false positive versus a positive secondary to his previous Covid infection. It was noticed that he had an open wound of his amputation site of the right great toe. He was seen by wound care and started on daily dressing changes with Aquacel Ag being placed inside the wound. When they examined the patient, the wound was open down to the remainder of bone of the right great toe. There was a question of a foul odor. We were asked to see the patient for this open wound. Patient states that he has had this open wound and has been treating it for the last 2 to 3 weeks. He denies pain at this time. Allergies Allergy/AdvReac Type Severity Reaction Status Date / Time levofloxacin Allergy Unknown "nervous" Verified 12/18/20 16:57 shrimp AdvReac Unknown NAUSEA Verified 12/18/20 16:57 Home Medications Medication Instructions Recorded Confirmed Type amlodipine 5 mg PO QAM 10/19/18 12/26/20 History aspirin [Aspirin Low Dose] 81 mg PO QAM 10/19/18 12/26/20 History gabapentin 600 mg PO BID 10/19/18 12/26/20 History Lantus Solostar U-100 Insulin 35 unit SUBCUT QAM 02/26/20 12/26/20 History insulin aspart U-100 [Novolog 8 unit SUBCUT QDD 02/26/20 12/27/20 History Flexpen U-100 Insulin] atorvastatin 40 mg PO HS #30 tab 07/08/20 12/26/20 Rx fexofenadine-pseudoephedrine 1 tab PO BID #14 tab 07/08/20 12/26/20 Rx [Merari-D 12 Hour] losartan 25 mg PO QAM #30 tab 07/08/20 12/26/20 Rx meclizine 25 mg PO Q8H PRN #15 tab 07/08/20 12/26/20 Rx Patient History Medical History (Updated 12/30/20 @ 10:00 by Kenny Webb PA-C) Ambulatory dysfunction CKD (chronic kidney disease) CKD (chronic kidney disease) stage 3, GFR 30-59 ml/min COVID-19 Diabetic neuropathy Difficult airway for intubation Glidescope 2012 Dizziness DM type 1 (diabetes mellitus, type 1) Fall History of heart block Patient presented to [facility] 03/2013 for elective L foot I&D. On induction with propofol in OR pt went into 3rd degree HB. Pt intubated and given 1 dose of Epi, which resolved HB but diffuse ST depression remained. Surgery aborted, pt to PACU, where ST segments returned to baseline and pt was extubated. Cardio consulted, echo WNL, no etiology discovered for HB, ST depression felt 2/2 strain from Epi or apnea. No further testing or intervention recommended. History of osteomyelitis HLD (hyperlipidemia) HTN (hypertension) Hyperlipidemia Low back pain Osteomyelitis of left foot history of Pulmonary nodule PVD (peripheral vascular disease) Vertigo history of--hypoglycemia Surgical History H/O eye surgery both eyes, corrective lens implant History of colonoscopy 8 years ago S/P amputation of lesser toe "right second and third toe" Family History Brother Diabetes Social History Smoking Status: Never smoker Second Hand Exposure: No; Do You Dip or Chew Tobacco: No; Tobacco Cessation Education Requested by Patient: No Hx Alcohol Use: Yes Alcohol type: wine Alcohol Intake Frequency: 2-4 x/Month Hx Substance Use: No Preferred Language: Ukrainian Communication Ability: Effective Parts Chaser Required: No Beliefs That Will Affect Care: None marital status: Single Current Living Situation: Family Current Living Situation Comment: Lives with brother Other Information That Helps Us Care for You: No Feels Safe at Home: Yes Safety Concerns: Feels Safe At This Time Assistive Devices: Walker Review of Systems Review of Systems: All systems reviewed & are unremarkable except as noted in HPI & below Physical Exam Physical Exam: Upon entering the room, the patient is awake and alert. He states he is feeling well and was hoping to go home soon. He is pleasant and cooperative and in no acute distress. Focusing the exam of the right foot, his DINOISIO hose is pulled back from covering foot. There is an Optifoam dressing over the great toe amputation site. Once this is removed there is a noted area approximately less than a centimeter in width that is open over the distal end of the great toe amputation site. I cannot appreciate any foul odor at this time but there is some slightly purulent drainage noted around the medial edge of the open wound. There is no major erythema noted. He does have some yellow purulent edges noted to the wound with a little bit of maceration. Patient was not having pain on palpation and I cannot express any purulent drainage on palpation. Wound is redressed. Results & Data ([facility]) Vital Signs (Past 12 Hours) Vital Signs Temp Pulse Pulse Resp BP Pulse Ox 12/30/20 07:33 65 12/29/20 23:45 37.1 C 66 14 128/79 96 12/29/20 22:20 64
--- NOTE | 2020-12-30 11:00 | XRay Report ---
XR foot RT min 3V routine CLINICAL HISTORY: History of great toe amputation COMPARISON: 01/09/2011 DISCUSSION: There are postsurgical changes of amputation of the third and fourth toes at the tarsomet atarsal joint level. There are postsurgical changes of an amputation involving the distal phalanx of the great toe. There is no conventional radiographic evidence of acute osteomyelitis. If this is a cl inical concern, an MRI could be obtained in follow-up as this is more sensitive for the detection of this diagnosis. IMPRESSION: 1. Postsurgical changes 2. No conventional radiographic evidence of acute osteomyelitis. If this remains a clinical concern, an MRI could be obtained in follow-up. ACT 112: Negative or not required by law. Electronically signed by: Jacob Reyes M.D. 12/30/2020 10:59 AM
--- NOTE | 2020-12-30 18:37 | Hospitalist Progress Note ---
Date of Service December 30, 2020 Assessment & Plan (1) CVA (cerebral vascular accident): (2) Falls frequently: (3) Generalized weakness: Present on admission with ongoing weakness MRI head showed a small acute infarct involving the left cerebral peduncle and left thalamus. An additional small focus of restricted diffusion within the right medial temporal lobe. Positive COVID 19 Neuro on board Continue Aspirin/Plavix for 21 days, then plavix alone Continue Lipitor Continue physical and Occupational Therapy Follow-up with neurology in 4 weeks Waiting for placement to rehab (4) CKD (chronic kidney disease) stage 3, GFR 30-59 ml/min: Acute kidney injury on chronic kidney disease stage III Baseline creatinine seemed to be around 1.6-1.7 Creatinine 1.6 today Avoid nephrotoxic agents continue with IV (5) HLD (hyperlipidemia): Continue statin (6) HTN (hypertension): BP control Continue amlodipine Losartan on hold due to elevate creatinine, will resume on discharge Continue monitor BP (7) Acute hyperglycemia: (8) Diabetic neuropathy: (9) DM type 1 (diabetes mellitus, type 1): Most recent hemoglobin A1c 9 Continue home Lantus, insulin sliding scale. Continue monitor BS (10) Diabetic ulcer of right great toe: Wound in right big toe Xray of right toe showed No conventional radiographic evidence of acute osteomyelitis. Ortho on board Might need a possible irrigation and debridement versus revision amputation of the amputation site. Continue IV antibiotic Admission and Anticipated Discharge Date Admission Date: December 28, 2020 Subjective Patient was seen and examined Lying in bed with no distress watching TV Patient states that he continues to feel weak denies any chest pain, palpitations, dizziness, shortness of breath. Review of Systems Review of Systems: All systems reviewed & are unremarkable except as noted in Subjective Physical Exam Physical Exam: General- No acute distress Head- atraumatic Eyes- PERRL, EOMI, ENT- oropharynx clear Neck- supple, no JVD Lungs- clear to auscultation Heart- regular rhythm; no murmur Abdomen- normal bowel sounds, soft, nontender Extremities- no calf tenderness, right big toe wound with yellow purulent edges noted to the with a little bit of maceration at the bottom of the toe Neuro- alert, oriented x 3; PERRL, EOMI; no facial palsy; no dysarthria Skin- warm & dry Results & Data Results & Data ([facility]) Vital Signs (Past 12 Hours) Vital Signs Temp Pulse Pulse Resp BP Pulse Ox 12/30/20 15:39 36.7 C 62 18 133/81 96 12/30/20 15:00 66 12/30/20 12:19 36.4 C L 61 16 115/72 95 12/30/20 07:33 65 (1) DM type 1 (diabetes mellitus, type 1) Diabetes mellitus complication status: without complication Qualified Code(s): E10.9 - Type 1 diabetes mellitus without complications
[2020-12-30] MEDS: ATORVASTATIN 40 MG TAB PO SCH (21:22)
[2020-12-31] MEDS: HEPARIN SOD 5,000 UNIT/0.5 ML VIAL SQ SCH ×2 (05:31→13:32)
[2020-12-31 07:33] LABS: BUN Creatinine Ratio 27.7 (10-20); Calcium 9.1 mg/dl (8.5-10.1); Creatinine Clr Calc Pharmacy 43.1 ml/min; Est GFR (African American) 45.1 ml/min; Est GFR (Non-African American) 38.9 ml/min; Potassium 4.7 mmol/L (3.5-5.1)
[2020-12-31] MEDS: cefTRIAXone SODIUM 2,000 MG in DEXTROSE 5% 50 ML IV SCH (09:15)
--- NOTE | 2020-12-31 09:19 | Orthopedic Progress Note ---
Date of Service December 31, 2020 Assessment & Plan (1) Diabetic ulcer of right great toe: He has a relatively small ulcer on the plantar aspect of his right great toe. No spreading infection. No indication for urgent surgical intervention. I would recommend wound care with dry daily dressing changes. Follow-up with Dr. Reynolds in orthopedics clinic 1 to 2 weeks after discharge. Patient is already established with Dr. Reynolds for previous toe amputations in the same foot. Please call [facility] at [phone] to make an appointment. Orthopedics will sign off at this time. Admission and Anticipated Discharge Date Admission Date: December 28, 2020 Subjective Patient resting comfortably. Denies significant pain in his right foot. He reports that he was not evaluated by Dr. Reynolds yesterday. Physical Exam Physical Exam: Examination of the right foot reveals a relatively small ulcer, approximately 3 to 4 mm in diameter, on the plantar aspect of the right great toe. There is good granulation tissue in the base of the wound. No obvious exposed bone. No active or expressible drainage. No significant surrounding swelling, erythema, or warmth, induration, or fluctuance of in the great toe. Results & Data ([facility]) Vital Signs (Past 12 Hours) Vital Signs Temp Pulse Pulse Resp BP BP Pulse Ox 12/31/20 08:01 36.7 C 62 16 134/77 95 12/31/20 03:56 37 C 65 18 123/75 96 12/31/20 01:47 72 12/31/20 00:24 36.8 C 62 18 125/69 97 Diagnostic Findings Right foot x-rays were reviewed. These show evidence of multiple previous toe amputations of all toes with the exception of the fifth. The great toe shows an amputation through the IP joint. There is an osseous erosion in the head of the proximal phalanx that looks consistent with a subchondral cyst. No obvious evidence of acute osteomyelitis. Second toe shows an amputation through the PIP joint. The right third toe shows an amputation through the distal metatarsal. Fourth toe shows amputation through the MTP joint.
[2020-12-31] MEDS: GABAPENTIN 300 MG CAP PO SCH (09:21)
[2020-12-31] MEDS: ASPIRIN 81 MG ECTAB PO SCH (09:21)
[2020-12-31] MEDS: CLOPIDOGREL BISULFATE 75 MG TAB PO SCH (09:21)
[2020-12-31] MEDS: amLODIPine BESYLATE 5 MG TAB PO SCH (09:22)
[2020-12-31] MEDS: INSULIN ASPART 100 UNITS/ML 3 ML PEN SC SCH ×3 (09:29→17:38)
[2020-12-31] MEDS: INSULIN GLARGINE SOLOSTAR 100 UNITS/ML 3 ML PEN SQ SCH (09:31)
[2020-12-31] MEDS: FEXOFENADINE 60 MG TAB PO SCH (12:25)
--- NOTE | 2020-12-31 19:39 | Discharge Summary ---
Date of Service December 31, 2020 Admission HPI Per Admitting Provider .CHIEF COMPLAINT: Weakness. HISTORY OF PRESENT ILLNESS: This is a 65-year-old male with past medical history significant for type 1 diabetes, diabetic neuropathy, hyperlipidemia, allergic rhinitis, peripheral vascular disease, hypertension, right eye vitreous hemorrhage, trigeminal neuralgia, who presents with weakness. He was recently here for the dizziness and weakness, and was discharged. Thought to be possibly from autonomic dysfunction secondary to diabetic neuropathy discharged on DIONISIO hose. At that time, also had acute renal failure on chronic kidney disease. On discharge, labs were back to baseline. The patient lives with his brother. He is saying he is mostly sleeping at home, he is feeling dizzy and weakness. Appetite is okay. Denies any headache. No chest pain, no shortness of breath, no cough, no fever, no chills, no blurred visions, no earache, no runny nose, no sore throat, no dysphagia, no nausea, no abdominal pain, normal bowel and bladder movements, no rash. Currently, resting comfortably and hemodynamically stable. Speaking in a somewhat lower voice. Admission Exam Per Admitting Provider GENERAL: The patient is of moderate build, not in acute distress. VITAL SIGNS: Temperature 36.3, pulse 64, respiratory rate 24, blood pressure 158/69, oxygen 92% on room air. HEENT: Pupils are equal, round and reactive to light. Oral mucosa moist. NECK: No JVD, no neck masses. CARDIOVASCULAR: S1 and S2 heard. Regular rate and rhythm. No murmur, no gallop. RESPIRATORY: Normal AP diameter. No accessory muscle use. No wheezing, no crackles. ABDOMEN: Soft, bowel sounds present, nontender, no distention. CENTRAL NERVOUS SYSTEM: Cranial nerves II-XII are grossly intact, nonfocal. EXTREMITIES: No edema, no erythema. Principal Diagnosis (1) CVA (cerebral vascular accident): (2) Falls frequently: (3) Generalized weakness: (4) CKD (chronic kidney disease) stage 3, GFR 30-59 ml/min: (5) HLD (hyperlipidemia): (6) HTN (hypertension): (7) Acute hyperglycemia: (8) Diabetic neuropathy: (9) DM type 1 (diabetes mellitus, type 1): (10) Diabetic ulcer of right great toe: Discharge Exam Gen-AAO x 3, NAD, Afebrile Head-NCAT, EOMI, PERRLA, Anicteric Sclera, No Posterior Pharyngeal Erythema Neck-Supple, No JVD, No Thyromegaly, No Masses, No LAD, No Bruits Lungs-Clear to Auscultation Bilaterally, No Rales, No Rhonchi, No Wheezing, No Crepitus Chest-No S4, +S1, +S2, No S3, No Murmurs, No Rubs, No Gallops, No Ectopy Abdomen-Soft, Bowel Sounds Present, Non Tender, Non Distended, No Hepatomegaly, No Splenomegaly, No Palpable Masses, No Rebound, No Rigidity, No Guarding Musculoskeletal-Full Range of Motion Bilaterally, No CVAT Extremities-No Cyanosis, No Clubbing, No Edema Nuero-Cranial Nerves II-XII grossly intact, Motor WNL, DTRs WNL, Strength WNL, Non Focal Psych-Normal Mood Discharge Data Allergies Allergy/AdvReac Type Severity Reaction Status Date / Time levofloxacin Allergy Unknown "nervous" Verified 12/18/20 16:57 shrimp AdvReac Unknown NAUSEA Verified 12/18/20 16:57 Consultations 12/26/20 21:08 ED Decision to Admit Stat 12/27/20 13:12 Consult Neurology Routine 12/29/20 12:33 Consult Orthopedic Surgery Routine Ordered Studies 12/27/20 12:56 MR brain wo con Urgent XR foot RT min 3V routine CLINICAL HISTORY: History of great toe amputation COMPARISON: 01/09/2011 DISCUSSION: There are postsurgical changes of amputation of the third and fourth toes at the tarsometatarsal joint level. There are postsurgical changes of an amputation involving the distal phalanx of the great toe. There is no conventional radiographic evidence of acute osteomyelitis. If this is a clinical concern, an MRI could be obtained in follow-up as this is more sensitive for the detection of this diagnosis. IMPRESSION: 1. Postsurgical changes 2. No conventional radiographic evidence of acute osteomyelitis. If this remains a clinical concern, an MRI could be obtained in follow-up. ACT 112: Negative or not required by law. Electronically signed by: Jacob Reyes M.D. 12/30/2020 10:59 AM Dictated: 12/30/20 1057Transcribed: 12/30/201056 Brain MRI WITHOUT CONTRAST HISTORY: Difficulty ambulating. Family concern for CVA TECHNIQUE: Multiplanar multisequence MRI of the brain was performed without the use of contrast. COMPARISON STUDY: Head CT 12/18/2020. FINDINGS: Small focal area of restricted diffusion seen within the left cerebral peduncle and extending into the left thalamus consistent with an acute infarct. Artifact versus a second small focus of restricted diffusion within the right medial temporal lobe on image 10. There are few old pontine lacunar infarcts. The major vascular flow-voids at the skull base are well-maintained. The ventricles and sulci demonstrate moderate age-related involutional changes. Minimal mucosal thickening within the paranasal sinuses. The mastoid air cells are clear. Evidence for bilateral lens replacement. No mass, hematoma, midline shift. Mild periatrial white matter T2 hyperintensity is nonspecific but favors microvascular ischemic change. IMPRESSION: 1. A small acute infarct involving the left cerebral peduncle and left thalamus. 2. An additional small focus of restricted diffusion within the right medial temporal lobe. This could be artifact or represent a second small infarct. 3. Atrophy and microvascular ischemic changes are noted. ACT 112: Negative or not required by law. Electronically signed by: Efren Kenney M.D. 12/28/2020 7:36 AM Dictated: 12/28/20 0733Transcribed: 12/28/20 0733 THORACIC SPINE 3 VIEWS HISTORY: Back pain/fall eval for fx COMPARISON: None. FINDINGS: Minimal anterior wedging within the lower thoracic spine vertebral bodies is likely chronic. No definite acute fractures identified. No subluxation. Mild disc space narrowing within the lower thoracic spine consistent with degenerative changes. IMPRESSION: 1. No acute fracture or subluxation within the thoracic spine. 2. Degenerative changes and minimal anterior wedging within the lower thoracic spine which is likely chronic. ACT 112: Negative or not required by law. Electronically signed by: Efren Kenney M.D. 12/26/2020 8:49 PM Dictated: 12/26/202046Transcribed: 12/26/202046 XR chest 1V portable HISTORY: weakness COMPARISON: Chest 12/18/2020. FINDINGS: No pneumothorax. No pleural effusions. The heart remains borderline enlarged. There are old, healed left-sided rib fractures. The lungs are clear. No evidence for pulmonary edema. IMPRESSION: No significant change compared to the prior study. No acute process. ACT 112: Negative or not required by law. Electronically signed by: Efren Kenney M.D. 12/26/2020 8:47 PM Dictated: 12/26/202045Transcribed: 12/26/202045 Diabetes Follow up Diabetes Follow-up Needed for HgbA1c >9% Hospital Course (1) CVA (cerebral vascular accident): (2) Falls frequently: (3) Generalized weakness: Present on admission with ongoing weakness MRI head showed a small acute infarct involving the left cerebral peduncle and left thalamus. An additional small focus of restricted diffusion within the right medial temporal lobe. Positive COVID 19 Neuro on board Continue Aspirin/Plavix for 21 days, then plavix alone Continue Lipitor Continue physical and Occupational Therapy Follow-up with neurology in 4 weeks Waiting for placement to rehab (4) CKD (chronic kidney disease) stage 3, GFR 30-59 ml/min: Acute kidney injury on chronic kidney disease stage III Baseline creatinine seemed to be around 1.6-1.7 Creatinine 1.6 today Avoid nephrotoxic agents continue with IV (5) HLD (hyperlipidemia): Continue statin (6) HTN (hypertension): BP control Continue amlodipine Losartan on hold due to elevate creatinine, will resume on discharge Continue monitor BP (7) Acute hyperglycemia: Continue statin (8) Diabetic neuropathy: ASSESSMENT AND PLAN: This is a 65-year-old male, who presents with ongoing weakness. 1. 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 The patient says he had COVID in August and August and a few weeks after that, he had COVID vaccine. The patient was in the hospital with dizziness and weakness and sent home on DIONISIO mora. On the day of his admission his SARS-CoV-2 PCR was positive, but chest x-ray showed no active infiltrates. The patient was asymptomatic. Symptoms could be post COVID syndrome. The patient seemed was started on Zoloft for depression. PT/OT. ASA and Plavix x 21 days then stop ASA, Continue Lipitor. Acute Rehab when out of isolation. 2. Acute kidney injury on chronic kidney disease stage III: Baseline creatinine seemed to be around 1.6-1.7, Avoid nephrotoxic agents. Monitor Daily labs. 3. History of type 1 diabetes: Continue home Lantus, insulin sliding scale. Will follow the blood sugars. 4. History of hypertension: Continue amlodipine .Will hold the losartan. Restart when the kidney function is normalized. Monitor the blood pressure. 5. Deep venous thrombosis prophylaxis: Heparin subQ. labs checked ROS-No Headache, No Visual Changes, No Nausea, No Vomiting, No Fever, No Chills, No Neck Pain or Stiffness, No Chest Pain, No Palpitations, No SOB, No MARIE, No Cough, No Sputum, No Wheezing, No Abdominal Pain, No Diarrhea, No Hematemesis, No Hemoptysis, No Unexpected Weight Loss, No Flank pain, No Melena, No Hematochezia, No Frequency, No Urgency, No Burning, No Hematuria, No Rashes, No Diaphoresis. Appetite is Normal (9) DM type 1 (diabetes mellitus, type 1): Most recent hemoglobin A1c 9 Continue home Lantus, insulin sliding scale. Continue monitor BS (10) Diabetic ulcer of right great toe: Wound in right big toe Xray of right toe showed No conventional radiographic evidence of acute osteomyelitis. Ortho on board Might need a possible irrigation and debridement versus revision amputation of the amputation site. Continue IV antibiotic Total Time Total Time Spent Total Time Spent (In Minutes): 35 minutes Total Time Includes: Examination of the Patient, Discharge Planning, Medication Reconciliation, Communication With Other Providers and Other Discharge Plan Discharge Items Patient Disposition: Transfer Inpatient Rehab Fac Reason For Visit: WEAKNESS Discharge Diagnosis: (1) CVA (cerebral vascular accident): (2) Falls frequently: (3) Generalized weakness: (4) CKD (chronic kidney disease) stage 3, GFR 30-59 ml/min: (5) HLD (hyperlipidemia): (6) HTN (hypertension): (7) Acute hyperglycemia: (8) Diabetic neuropathy: (9) DM type 1 (diabetes mellitus, type 1): (10) Diabetic ulcer of right great toe: Activity: Resume your previous activity Non-emergency contact: Primary Care Provider Call non-emergency contact if: you have any medication questions Follow-up/Referrals: Bravo Robles MD [Primary Care Provider] - Diet: Carb Count or DM1 Addtl Attending Provider Instructions: Follow up with your primary care provider once discharge from rehab Follow up with [facility] neurology in 4 weeks ( please call for the appointment) Follow up with [facility] Dr[facility] Dr. Reynolds 1 to 2 weeks for the big toe wound Please call [facility] [place] at [phone] to make an appointment. Follow up with wound care clinic. Please call [phone] to schedule for the appointment Continue daily wound Your will need to get arrange for outpatient Zio patch to monitor your heart rhythm ( your provider or neurologist will arrange that) Continue Plavix and Aspirin for 21 days, then discontinue aspirin and continue the Plavix only Continue physical and occupational therapy Fall precaution Continue monitor your blood sugar Check BMP in 3-5 days to monitor renal function Continue to hold Losartan for now. Ok to resume after next blood work. Continue monitor blood pressure Coronavirus disease 2019 (COVID-19) is a virus that causes a respiratory illness. It is caused by a coronavirus called 2019 novel coronavirus (2019- nCoV). There are many types of coronavirus. Coronaviruses are a very common cause of bronchitis. They may sometimes cause lung infection(pneumonia). Symptoms can range from mild to severe respiratory illness. These viruses are also foundin some animals. COVID-19 was first found in people in [facility], in late 2019. In 2020, several cases of COVID-19 have been confirmed in the [place] Public health officials are working to find the source. How the virus spreads is not yet fully known. It may be spread through droplets of fluid that a person coughs or sneezes into the air. It may be spread if you touch a surface with virus on it, such as a handle or object, and then touch your mouth. What are the symptoms of COVID-19? Some people have no symptoms or mild symptoms. Symptoms may appear 2 to 14 days after contact with the virus. Symptoms can include: Fever Coughing Trouble breathing What are possible complications from COVID-19? In many cases, this virus can cause infection (pneumonia) in both lungs. In some cases, this can cause . How is COVID-19 diagnosed? Your healthcare provider will ask about your symptoms. He or she will also ask about your recent travel and contact with sick people. Testing for the virus is only done through the CDC. If yourhealthcare provider thinks you may have COVID- 19, he or she will work with your local health department and the CDC on testing. Follow all instructions from your healthcare provider. COVID-19 is diagnosed by: Nasal and throat swab. A cotton-tipped swab is wiped inside your nose or throat. This is done to check for viruses in your nasal mucus. Sputum culture. A small sample of mucus coughed from your lungs (sputum) is collected if you have a cough. It is checked for the virus. How is COVID-19 treated? There is currently no medicine to treat the virus. Treatment is done to help your body while it fights the virus. This is known as supportive care. Supportive care may include: Pain medicine. These include acetaminophen and ibuprofen. They are used to help ease pain and reduce fever. Bed rest. This helps your body fight the illness. For severe illness, you may need to stay in the hospital. Care during severe illness may include: IV (intravenous) fluids.These are given through a vein to help keep your body hydrated. Oxygen. Supplemental oxygen or ventilation with a breathing machine (ventilator) may be given. This is done to keep enough oxygen in your body. Are you at risk for COVID-19? If youve been to a place where people have been sick with this virus, you are at risk for infection. You are at risk if you: Recently traveled to an affected area Had contact with a sick person who recently traveled to this area Had contact with a person who was diagnosed with COVID-19 How can COVID-19 be prevented? There is no vaccine yet. The best prevention is to not have contact with the virus. The CDC advises that people should not travel to areas where there are COVID-19 outbreaks right now for any reason that is not urgent. To help prevent spreading the infection, wash your hands often, or use an alcohol-basedhand law enforcement officer. If you are in an area with COVID-19: Wash your hands often. Or use an alcohol-based hand law enforcement officer often. Only touch your eyes, nose, or mouth with clean hands. Dont have contact with people who are sick. Follow local instructions about being in public. For example, you may be told to not use public transport for a period of time. Stay away from markets that have live or animals. Wash your hands after touching any animals. Don't touch animals that may be sick. Dont share eating or drinking tools with sick people. Dont kiss someone who is sick. Clean surfaces often with disinfectant. If you were in an area with COVID-19 in the last 14 days: Call your healthcare provider. He or she can talk with local health staff to see what action may be needed. Follow all instructions from your provider. Take your temperature every morning and evening for at least 14 days. This is to check for fever. Keep a record of the readings. Keep watch for symptoms of the virus. Tell your provider right away if you have symptoms. If you were in an area with COVID-19 and have a fever or other symptoms: Dont panic. Keep in mind that other illnesses can cause similar symptoms. Stay away from work, school, and public places. Limit physical contact with family members. Don't kiss anyone or share eating or drinking utensils. Clean surfaces you touch with disinfectant. This is to help prevent the virus from spreading. Call your healthcare provider. Explain that you have been exposed to COVID-19 and have symptoms. Do this before going to any hospital. Wait for instructions. Keep in mind that healthcare staff may wear protective equipment such as masks, gowns, gloves, and eye protection. You may be put in a separate room. This is to prevent the possible virus from spreading. Tell the healthcare staff about recent travel. This includes local travel on public transport. Staff may need to find other people you have been in contact with. Follow all instructions the healthcare staff give you. If you have been diagnosed with COVID-19 Follow all instructions from your healthcare provider. Dont leave your home, except to get medical care. Call your healthcare providers office before going. They can prepare and give you instructions. This will help prevent the virus from spreading. Dont go to work, school, or public areas. Dont use public transport or taxis. Stay away from other people in your home. Have them wear face masks around you. Dont share household items or food. Wear a face mask if you can. This includes at home or in a medical facility. Cover your face with a tissue when you cough or sneeze. Throw the tissue away. Wash your hands. Wash your hands often. Caregivers should: Follow all instructions from healthcare staff. Wear a face mask and protective clothing as advised. Wash hands often. Keep track of the sick persons symptoms. Clean surfaces, fabrics, and laundry thoroughly. Keep other people away from the sick person. When to call your healthcare provider Call your healthcare provider: If youve recently traveled and have symptoms If you have been diagnosed with COVID-19 and your symptoms are worse To learn more To find out more about COVID-19, visit the CDC website at www.cdc.gov/coronavirus/2019-ncov/index.html. [employer]. [address] [place] [address]. All rights reserved. This information is not intended as a substitute for professional medical care. Always follow your healthcare professional's instructions. This information has been adapted from [employer] Pending Studies at Discharge: No Stand-Alone Forms: My [facility] Skilled Items Patient informed of condition?: Yes DNR: No Discharge Level of Care: Acute rehab Communicable Disease: Yes Discharge Prognosis: Stable Lines: None Urinary Catheter: No Medications and DC Order Prescriptions: New clopidogrel 75 mg Tablet 75 mg PO QAM Qty: 30 RF: 0 Continued amlodipine 5 mg tablet 5 mg PO QAM RF: 0 aspirin [Aspirin Low Dose] 81 mg Tablet,Delayed Release (Dr/Ec) 81 mg PO QAM RF: 0 gabapentin 300 mg capsule 600 mg PO BID RF: 0 insulin aspart U-100 [Novolog Flexpen U-100 Insulin] 100 unit/mL (3 mL) insulin pen 8 unit subcut QDD RF: 0 Lantus Solostar U-100 Insulin 100 unit/mL (3 mL) insulin pen 35 unit SUBCUT QAM RF: 0 atorvastatin 40 mg Tablet 40 mg PO HS Qty: 30 RF: 0 meclizine 25 mg Tablet 25 mg PO Q8H PRN (Reason: dizziness) Qty: 15 RF: 0 losartan 25 mg Tablet 25 mg PO QAM Qty: 30 RF: 0 fexofenadine-pseudoephedrine [Merari-D 12 Hour] 60-120 mg Tablet Extended Release 12 Hr 1 tab PO BID Qty: 14 RF: 0 Discharge Orders: Discharge Order (Routine); Ordered 12/31/20 Ordered By: Alen Dia Admission Data Admit Date/Time: 12/28/20 10:46 Attending Provider: Alen Dia Admit Provider: Dion Schroeder Primary Care Provider: Bravo Robles Other Providers: [facility] ; Dion Schroeder ; Bravo Patricia ; Goldy Reynolds ; Cathy,Miki Other Interventions: Discharge Summary Assessment (RN) Last Done: 12/31/20 17:47
== END 2020-12-31 19:45 | DRG 65 ==
LOC: 3N 18:08 → ED 18:08 → 3N 12-27 01:40 → SUATTDRO 12-28 10:46 → 2N 12-28 11:01

== ENCOUNTER 2021-01-19 13:03 | Inpatient (IN) ==
--- NOTE | 2021-01-19 14:11 | Emergency Department Note ---
Impression & Plan Ambulatory dysfunction, Back pain, Diabetes, Chronic foot ulcer ED Provider Note NAME: SAVANA FISCHER AGE: 65 SEX: M : 1955 ARRIVES VIA: Walk-In INFORMANT: Patient, ED PROVIDER(S): Jayson Mejia MD Chief Complaint: Back pain, difficulty with ambulation HPI: Patient does present with his brother who is the patient's primary child custody evaluator. The patient has had difficulty with ambulation this morning. The pa tient recently had a fall approximate 4 days prior and was recently discharged from rehab 6 days ago. Patient denies any fevers chills chest pain shortness of breath. The patient has no nausea vomiting or abdominal pain. Patient does complain of middle midline lower lumbar pain that is nonradiating and is dull and constant. Nothing is made it any better. The patient not take anything for it at home. Patient reportedly had difficulty with walking this morning and after he got up to walk he discounted slumped down. Patient not strike his head or pass out. The patient did not take his morning medications and the brother with whom the patient lives is concerned as he is not walking. The patient also does have a significant history of diabetes, neuropathy and prior history of toe amputations which also contribute to his difficulty with walking. Patient is vaccinated for Covid. ROS: See HPI for pertinent positives and negatives. A total of 10 systems were reviewed and otherwise negative. Past medical history: See below Surgical history: See below Social history: See below Physical Exam: GENERAL: Wearing glasses and a mask. NAD, non-toxic. EYE EXAM: Normal conjunctiva. PERRL, no anisocoria and EOM's grossly intact w/o pain. NECK: Supple, no nuchal rigidity, no adenopathy, non-tender. No signs of meningismus. LUNGS: Clear to auscultation. Normal chest wall mechanics. HEART: NSR, no MRG. ABDOMEN: Abdomen soft, non-tender, normo-active bowel sounds, no masses, no rebo und or guarding. BACK: Midline lower lumbar spinal TTP without overlying skin changes or step- offs. No ecchymosis. SKIN: No rashes and no bruising. UPPER EXTREMITIES: Upper extremities are grossly normal. LOWER EXTREMITIES: Grossly normal, no edema. Missing several toes, healing ulcer of the right first toe. No surrounding erythema or crepitus. NEURO EXAM: A&O x3, cranial nerves II-XII grossly intact, normal speech, moves all 4 extremities on command w/o issue. No saddle anesthesia. Negative straight leg raise bilaterally. Differential diagnoses: Musculoskeletal, disc herniation, fracture, metastatic disease, cord compression, discitis, sciatica, cauda equina, infection, aortic disease, renal colic, gastrointestinal, as well as other pathologies. Course: Patient was seen and evaluated the bedside. Full history physical exam was performed. EKG interpreted by me Normal sinus rhythm, rate of 67, normal intervals, normal axis, no ST changes or T WI. Imaging Studies: See below Cardiac monitoring: An order was placed for continuous cardiac monitoring. The monitor shows a rate of 67 with sinus rhythm. MDM: Patient does present with concern for back pain and difficulty with ambulation. Blood work was obtained and the patient was treated symptomatically. CT lumbar spine also ordered. The patient did not have any evidence of acute fracture on CT lumbar spine. The patient's blood work is unremarkable. The patient did undergo an ambulatory trial did not do very well. Given this concern I did speak with the human services case manager but the patient is unable to be placed in rehab at this time. I did speak the on-call hospitalist Patricia lama PA-C and the patient was ad mitted by Dr. Castrejon. Past Med/Surg History Medical History (Updated 01/19/21 @ 18:31 by Jayson Mejia MD) Acute hyperglycemia Acute thoracic back pain Ambulatory dysfunction CKD (chronic kidney disease) COVID-19 COVID-19 Diabetic neuropathy Difficult airway for intubation Glidescope 2012 Dizziness DM type 1 (diabetes mellitus, type 1) Fall Falls frequently History of heart block Patient presented to [facility] 03/2013 for elective L foot I&D. On induction with propofol in OR pt went into 3rd degree HB. Pt intubated and given 1 dose of Epi, which resolved HB but diffuse ST depression remained. Surgery aborted, pt to PACU, where ST segments returned to baseline and pt was extubated. Cardio consulted, echo WNL, no etiology discovered for HB, ST depression felt 2/2 strain from Epi or apnea. No further testing or intervention recommended. History of osteomyelitis Hyperlipidemia Low back pain Osteomyelitis of left foot history of Pulmonary nodule PVD (peripheral vascular disease) Vertigo history of--hypoglycemia Surgical History H/O eye surgery both eyes, corrective lens implant History of colonoscopy 8 years ago S/P amputation of lesser toe "right second and third toe" Family History Brother Diabetes Social History Smoking Status: Never smoker Second Hand Exposure: No; Hx Alcohol Use: Yes Alcohol type: hard liquor Alcohol Intake Frequency: 2-4 x/Month Hx Substance Use: No Preferred Language: Estonian Communication Ability: Effective Bronc Buster Required: No Beliefs That Will Affect Care: None marital status: Single Current Living Situation: Family Current Living Situation Comment: lives with brother current occupational status: retired How many Children do You have: 0 Other Information That Helps Us Care for You: No Feels Safe at Home: Yes Safety Concerns: Feels Safe At This Time caffeine: No Assistive Devices: Glasses and Walker Allergies Allergies Allergy/AdvReac Type Severity Reaction Status Date / Time levofloxacin Allergy Unknown "nervous" Verified 01/18/21 08:01 shrimp AdvReac Unknown NAUSEA Verified 01/18/21 08:01 Home Meds Home Medications Medication Instructions Recorded Confirmed amlodipine 5 mg tablet 5 mg PO QAM 10/19/18 01/19/21 aspirin 81 mg tablet,delayed 81 mg PO QAM 10/19/18 01/19/21 release (Aspirin Low Dose) insulin glargine 100 unit/mL (3 35 unit SUBCUT QAM 02/26/20 01/19/21 mL) subcutaneous pen (Lantus Solostar U-100 Insulin) gabapentin 300 mg capsule 600 mg PO BID cap 01/17/21 01/19/21 losartan 25 mg tablet 25 mg PO QAM tab 01/17/21 01/19/21 insulin aspart U-100 100 unit/mL 3 unit SUBCUT TIDM 01/19/21 01/19/21 (3 mL) subcutaneous pen Previous Rx's Medication Instructions Recorded atorvastatin 40 mg tablet 40 mg PO HS #30 tab 07/08/20 fexofenadine 60 mg-pseudoephedrine 1 tab PO BID #14 tab 07/08/20 ER 120 mg tablet,ext.release,12 hr (Merari-D 12 Hour) clopidogrel 75 mg tablet 75 mg PO QAM #30 tab 12/31/20 Results & Data (ED) Vital Signs Vital Signs - 24 hr 01/19/21 13:12 01/19/21 13:55 Temperature 36.5 C Temperature Source Temporal Artery Scan Pulse Rate 84 Pulse Rate [Apical] 67 Respiratory Rate 18 20 Respiratory Effort / Characteristics Non-Labored Non-Labored Spontaneous Respiratory Depth Normal Normal Respiratory Pattern Regular Blood Pressure 106/60 Blood Pressure [Left Arm] 129/78 Blood Pressure Mean 75 Blood Pressure Mean [Left Arm] 95 Pulse Oximetry 95 98 Oxygen Delivery Method Room Air Room Air Sepsis Recent Fever Within 48 Hours No Sepsis New/Unexplained Change in Mental Status No Sepsis Action Taken by Nursing No Action Required Laboratory Data Result diagrams: 01/19/21 13:56 01/19/21 13:56 Lab Results 01/19/21 01/19/21 01/19/21 Range/Units 13:56 13:56 13:56 WBC 6.12 (4.8-10.8) K/uL RBC 4.49 L (4.7-6.1) M/uL Hgb 13.7 L (14.0-18.0) g/dL Hct 39.7 L (42-52) % MCV 88.4 (80-100) fL MCH 30.5 (25-34) pg MCHC 34.5 (32-36) g/dL RDW Std Deviation 40.6 (36.4-46.3) fL RDW Coeff of Дмитрий 12.6 (11.5-14.5) % Plt Count 211 (130-400) K/uL MPV 11.3 H (7.4-10.4) fL Immature Gran % (Auto) 0.3 % Neut % (Auto) 70.2 % Lymph % (Auto) 18.6 % Travis % (Auto) 10.5 % Eos % (Auto) 0.2 % Baso % (Auto) 0.2 % Neut # (Auto) 4.30 (1.4-6.5) K/uL Lymph # (Auto) 1.14 L (1.2-3.4) K/uL Travis # (Auto) 0.64 H (0.11-0.59) K/uL Eos # (Auto) 0.01 (0-0.5) K/uL Baso # (Auto) 0.01 (0-0.2) K/uL Immature Gran # (Auto) 0.02 (0.00-0.02) K/uL Sodium 143 (136-145) mmol/L Potassium 4.1 (3.5-5.1) mmol/L Chloride 111 H (98-107) mmol/L Carbon Dioxide 27 (21-32) mmol/L Anion Gap 5.0 (3-11) BUN 31 H (7-18) mg/dl Creatinine 1.59 H (0.6-1.4) mg/dl Est Cr Clr Drug Dosing Not Reportable Est GFR ( Amer) 52.8 ml/min Est GFR (Non-Af Amer) 45.5 ml/min BUN/Creatinine Ratio 19.3 (10-20) Glucose 55 L (70-99) mg/dl Calcium 9.1 (8.5-10.1) mg/dl Total Bilirubin 0.8 (0.2-1) mg/dl AST 81 H (15-37) U/L ALT 84 H (12-78) U/L Alkaline Phosphatase 108 (45-117) U/L Total Protein 6.6 (6.4-8.2) gm/dl Albumin 3.2 L (3.4-5.0) gm/dl Globulin 3.4 (2.5-4.0) gm/dl Albumin/Globulin Ratio 0.9 (0.9-2) TSH 1.820 (0.300-4.500) uIu/ml Urine Color Yellow Urine Appearance Clear (Clear) Urine pH 5.0 (4.5-7.5) Ur Specific [place] 1.017 (1.000-1.030) Urine Protein 1+ H (Negative) Urine Glucose (UA) Negative (Negative) Urine Ketones Negative (Negative) Urine Blood Trace H (Negative) Urine Nitrite Negative (Negative) Urine Bilirubin Negative (Negative) Urine Urobilinogen Negative (Negative) Ur Leukocyte Esterase Trace H (Negative) Urine WBC (Auto) 0 (0-5) /hpf Urine RBC (Auto) 0-4 (0-4) /hpf U Hyaline Cast (Auto) 1-5 (0-5) /lpf U Epithel Cells (Auto) 0-5 (0-5) /lpf Urine Bacteria (Auto) Negative (Negative) COVID-19 Eval Order SARS-CoV-2 (PCR) (Negative) 01/19/21 01/19/21 Range/Units 15:13 15:13 WBC (4.8-10.8) K/uL RBC (4.7-6.1) M/uL Hgb (14.0-18.0) g/dL Hct (42-52) % MCV (80-100) fL MCH (25-34) pg MCHC (32-36) g/dL RDW Std Deviation (36.4-46.3) fL RDW Coeff of Дмитрий (11.5-14.5) % Plt Count (130-400) K/uL MPV (7.4-10.4) fL Immature Gran % (Auto) % Neut % (Auto) % Lymph % (Auto) % Travis % (Auto) % Eos % (Auto) % Baso % (Auto) % Neut # (Auto) (1.4-6.5) K/uL Lymph # (Auto) (1.2-3.4) K/uL Travis # (Auto) (0.11-0.59) K/uL Eos # (Auto) (0-0.5) K/uL Baso # (Auto) (0-0.2) K/uL Immature Gran # (Auto) (0.00-0.02) K/uL Sodium (136-145) mmol/L Potassium (3.5-5.1) mmol/L Chloride (98-107) mmol/L Carbon Dioxide (21-32) mmol/L Anion Gap (3-11) BUN (7-18) mg/dl Creatinine (0.6-1.4) mg/dl Est Cr Clr Drug Dosing Est GFR ( Amer) ml/min Est GFR (Non-Af Amer) ml/min BUN/Creatinine Ratio (10-20) Glucose (70-99) mg/dl Calcium (8.5-10.1) mg/dl Total Bilirubin (0.2-1) mg/dl AST (15-37) U/L ALT (12-78) U/L Alkaline Phosphatase (45-117) U/L Total Protein (6.4-8.2) gm/dl Albumin (3.4-5.0) gm/dl Globulin (2.5-4.0) gm/dl Albumin/Globulin Ratio (0.9-2) TSH (0.300-4.500) uIu/ml Urine Color Urine Appearance (Clear) Urine pH (4.5-7.5) Ur Specific [place] (1.000-1.030) Urine Protein (Negative) Urine Glucose (UA) (Negative) Urine Ketones (Negative) Urine Blood (Negative) Urine Nitrite (Negative) Urine Bilirubin (Negative) Urine Urobilinogen (Negative) Ur Leukocyte Esterase (Negative) Urine WBC (Auto) (0-5) /hpf Urine RBC (Auto) (0-4) /hpf U Hyaline Cast (Auto) (0-5) /lpf U Epithel Cells (Auto) (0-5) /lpf Urine Bacteria (Auto) (Negative) COVID-19 Eval Order Covid19 at [facility] SARS-CoV-2 (PCR) NEGATIVE (Negative) Administered Medications Discontinued Medications Acetaminophen (Acetaminophen 325 Mg Tab) 650 mg PO NOW STA Stop: 01/19/21 14:29 Last Admin: 01/19/21 15:28 Dose: Not Given Documented by: [id number] Lidocaine (Lidocaine 5% 1 Patch) 1 patch TD NOW STA Stop: 01/19/21 14:29 Last Admin: 01/19/21 15:28 Dose: Not Given Documented by: [id number] Imaging Data Radiologist's Impression: Chest X-Ray 01/19/21 14:28 SINGLE VIEW CHEST CLINICAL HISTORY: Generalized weakness. FINDINGS: An AP, portable, upright chest radiograph is compared to study dated 12/26/2020 and correlated with chest CT dated 02/17/2020. An electronic device partially obscures the left mid chest. The heart is top normal for projection noting atherosclerotic calcification of the thoracic aorta. The lungs and pleural spaces are clear. No pneumothorax is seen. There are chronic bilateral rib fractures. IMPRESSION: No active disease in the chest. ACT 112: Negative or not required by law. Electronically signed by: Jonathan Merrill M.D. 01/19/2021 3:[address] 01/19/21 14:28 CT lumbar spine wo con CT DOSE: 617.76 mGy.cm CLINICAL HISTORY: midline LBP; fall several days ago TECHNIQUE: Helical images were acquired in transverse plane. Reformatted sagittal and coronal images were reviewed. A dose lowering technique was utilized adhering to the principles of ALARA. CONTRAST: No contrast was administered COMPARISON STUDY: None. FINDINGS: There are nonobstructing left renal calculi. Renal vascular calcifications are also present. L1-2 level: There is no evidence of significant disc bulge or focal herniation. There is no evidence of spinal or foraminal stenosis. L2-3 level: There is no evidence of significant disc bulge or focal herniation. There is no evidence of spinal or foraminal stenosis. L3-4 level: There is a minimal circumferential disc bulge. There is no significant spinal or foraminal stenosis L4-5 level: There is a tiny central disc protrusion in association with a minor circumferential disc bulge. There is minimal impression on the anterior thecal sac. There is no significant foraminal narrowing L5-S1 level: No acute fractures or traumatic subluxations are visualized. IMPRESSION: 1. Mild multilevel spondylytic changes with a tiny central disc protrusion at the L4-5 level 2. No acute fractures or traumatic subluxations identified. ACT 112: Negative or not required by law. Electronically signed by: Jacob Reyes M.D. 01/19/2021 3:49 PM Discharge Plan Visit Data Chief Complaint: Back Injury/Pain Stated Complaint: BACK PAIN ED Provider: Jayson Mejia Discharge Problem: Ambulatory dysfunction, Back pain, Diabetes, Chronic foot ulcer Discharge Instructions Interventions: ED Discharge Assessment Last Done: 01/19/21 18:10 Discharge Problem: Back pain Qualifiers: Back pain location: low back pain Chronicity: acute Back pain laterality: midline Sciatica presence: without sciatica Qualified Code(s): M54.5 - Low back pain Diabetes Qualifiers: Diabetes mellitus type: other specified (including DAMARIS) Chronic foot ulcer Qualifiers: Laterality: right Non-pressure ulcer stage: limited to breakdown of skin Qualified Code(s): L97.511 - Non-pressure chronic ulcer of other part of right foot limited to breakdown of skin
[2021-01-19] MEDS ORDERED: LIDOCAINE 5% 1 PATCH TD STA (14:28)
[2021-01-19] MEDS ORDERED: ACETAMINOPHEN 325 MG TAB PO STA (14:28)
[2021-01-19 14:36] LABS: Basophils # (auto) 0.01 K/uL (0-0.2); Basophils % (auto) 0.2 %; Eosinophils # (auto) 0.01 K/uL (0-0.5); Eosinophils % (auto) 0.2 %; Hematocrit (blood only) 39.7 % (42-52); Hemoglobin 13.7 g/dL (14.0-18.0); Immature Granulocytes # (auto) 0.02 K/uL (0.00-0.02); Immature Granulocytes % (auto) 0.3 %; Lymphocytes # (auto) 1.14 K/uL (1.2-3.4); Lymphocytes % (auto) 18.6 %; Mean Corpuscular Hemoglobin 30.5 pg (25-34); Mean Corpuscular Hgb Conc 34.5 g/dL (32-36); Mean Corpuscular Volume 88.4 fL (80-100); Mean Platelet Volume 11.3 fL (7.4-10.4); Monocytes # (auto) 0.64 K/uL (0.11-0.59); Monocytes % (auto) 10.5 %; Neutrophils % (auto) 70.2 %; Platelet Count 211 K/uL (130-400); RDW Coefficient of Variation 12.6 % (11.5-14.5); RDW Standard Deviation 40.6 fL (36.4-46.3); Red Blood Count 4.49 M/uL (4.7-6.1); White Blood Count 6.12 K/uL (4.8-10.8)
[2021-01-19 14:52] LABS: Alanine Aminotransferase 84 U/L (12-78); Albumin Level 3.2 gm/dl (3.4-5.0); Aspartate Aminotransferase 81 U/L (15-37); BUN Creatinine Ratio 19.3 (10-20); Blood Urea Nitrogen 31 mg/dl (7-18); Calcium 9.1 mg/dl (8.5-10.1); Carbon Dioxide 27 mmol/L (21-32); Chloride 111 mmol/L (98-107); Est GFR (African American) 52.8 ml/min; Est GFR (Non-African American) 45.5 ml/min; Glucose 55 mg/dl (70-99); Potassium 4.1 mmol/L (3.5-5.1); Sodium 143 mmol/L (136-145)
[2021-01-19 15:03] LABS: Albumin Globulin Ratio 0.9 (0.9-2); Alkaline Phosphatase 108 U/L (45-117); Bilirubin,Total 0.8 mg/dl (0.2-1); Globulin 3.4 gm/dl (2.5-4.0); Total Protein 6.6 gm/dl (6.4-8.2)
[2021-01-19 15:04] LABS: Appearance Urine Clear (Clear); Bacteria Urine Automated Negative (Negative); Bilirubin Urine Negative (Negative); Blood Urine Trace (Negative); Color Urine Yellow; Epithelial Cell Urine Auto 0-5 /lpf (0-5); Glucose Urine UA Negative (Negative); Ketones Urine Negative (Negative); Leukocyte Esterase Urine Trace (Negative); Nitrite Urine Negative (Negative); Protein Urine 1+ (Negative); RBC Urine Automated 0-4 /hpf (0-4); Specific Gravity Urine 1.017 (1.000-1.030); Urobilinogen Urine Negative (Negative); WBC Urine Automated 0 /hpf (0-5)
--- NOTE | 2021-01-19 15:15 | XRay Report ---
SINGLE VIEW CHEST CLINICAL HISTORY: Generalized weakness. FINDINGS: An AP, portable, upright chest radiograph is compared to study dated 12/26/2020 and correlat ed with chest CT dated 02/17/2020. An electronic device partially obscures the left mid chest. The hea rt is top normal for projection noting atherosclerotic calcification of the thoracic aorta. The lungs and pleural spaces are clear. No pneumothorax is seen. There are chronic bilateral rib fractures. IMPRESSION: No active disease in the chest. ACT 112: Negative or not required by law. Electronically signed by: Jonathan Merrill M.D. 01/19/2021 3:14 PM
--- NOTE | 2021-01-19 15:17 | Electrocardiogram Report ---
Test Reason : Blood Pressure : / mmHG Vent. Rate : 067 BPM Atrial Rate : 067 BPM P-R Int : 164 ms QRS Dur : 080 ms QT Int : 398 ms P-R-T Axes : 042 003 079 degrees QTc Int : 420 ms Normal sinus rhythm Low voltage QRS Borderline ECG When compared with ECG of 27-DEC-2020 06:07, No significant change was found Confirmed by Tanner Wolf ([id number]) on 01/19/2021 3:16:37 PM Referred By: REFERRED SELF Confirmed By:Tanner Wolf
--- NOTE | 2021-01-19 15:50 | CT Scan Report ---
CT lumbar spine wo con CT DOSE: 617.76 mGy.cm CLINICAL HISTORY: midline LBP; fall several days ago TECHNIQUE: Helical images were acquired in transverse plane. Reformatted sagittal and coronal images were reviewed. A dose lowering technique was utilized adhering to the principles of ALARA. CONTRAST: No contrast was administered COMPARISON STUDY: None. FINDINGS: There are nonobstructing left renal calculi. Renal vascular calcifications are also present. L1-2 level: There is no evidence of significant disc bulge or focal herniation. There is no evidence of spinal or foraminal stenosis. L2-3 level: There is no evidence of significant disc bulge or focal herniation. There is no evidence of spinal or foraminal stenosis. L3-4 level: There is a minimal circumferential disc bulge. There is no significant spinal or foramina l stenosis L4-5 level: There is a tiny central disc protrusion in association with a minor circumferential disc bulge. There is minimal impression on the anterior thecal sac. There is no significant foraminal narr owing L5-S1 level: No acute fractures or traumatic subluxations are visualized. IMPRESSION: 1. Mild multilevel spondylytic changes with a tiny central disc protrusion at the L4-5 level 2. No acute fractures or traumatic subluxations identified. ACT 112: Negative or not required by law. Electronically signed by: Jacob Reyes M.D. 01/19/2021 3:49 PM
--- NOTE | 2021-01-19 16:47 | History & Physical Report ---
Date of Service January 19, 2021 Assessment & Plan (1) Back pain: Plan: -Admit to [facility] on observation -Likely secondary to recent falls -CT head negative -L spine showing disc protrusion at level of L4-L5, pt also with c/o thoracic pain so will get XR thoacic spine. Consult Dr. Bowman, spine ortho. No bowel or bladder incontinence, no saddle anesthesia, no radiation of pain, numbness, or tingling. -PT/OT consults, recently discharged from [facility] on 01/12. Patient will likely be here through the weekend for PT/OT and further placement. He lives at home with his brother currently. -Use ice, heat, and lidocaine patch for pain relief, may use tylenol, avoid narcotics in the setting of recent falls and history of CVA presenting with increased ambulatory dysfunction (2) Fall: Plan: -Fell 4 days ago and then again today, as above - Checking thoracic spine, consult ortho spine, pain control as above (3) History of CVA (cerebrovascular accident): Plan: - Recent hospitalization for such at end of November, discharged on 12/31/20 for 1. small acute infarct involving the left cerebral peduncle and left thalamus. 2. An additional small focus of restricted diffusion within the right medial temporal lobe. This could be artifact or represent a second small infarct. 3. Atrophy and microvascular ischemic changes are noted. - Noted on record review that he is supposed to stop baby aspirin on 01/21 and continue Plavix alone. -Continue Lipitor -PT/OT -Frequent falls likely related to history of such (4) DM type 1 (diabetes mellitus, type 1): Plan: -Continue ISS with Accu-Cheks AC at bedtime, holding home lantus (35 U QAM), uses 3 U short acting insultin with meals -Glycemic pharmacy consulted, has Zio patch on left chest wall, glucose of 55 upon in the ER, question if hypoglycemia has contributed to hx of multiple falls. -A1c = 9.0 on 12/27/2020 (5) Hyperlipidemia: Plan: -Continue statin therapy (6) PVD (peripheral vascular disease): Plan: -Chronic, stable (7) HTN (hypertension): Plan: -Continue amlodipine 5 mg daily, losartan 25 mg daily (8) Constipation: Plan: - Add miralax, dulcolax to start tonight. Pt last BM was 4 days ago. (9) CKD (chronic kidney disease): Plan: - Cr. 1.59/ BUN 31, appears that his baseline is about 1.6-1.8, may continue medications as above. - Trend with a.m. labs (10) Diabetic ulcer of right great toe: Plan: -History of such, currently following with [facility] wound clinic as an outpatient, ongoing for approximately 6 weeks, no history of osteomyelitis, was debrided recently on 01/17/2021, will consult wound nurse here in the hospital -Follows with Ortho with Dr. Reynolds -Continue offloading footwear DVT PPx: - teds, scds CODE: DNR/DNI Dispo: From home, likely to remain in the hospital x 1-2 days History of Present Illness Primary Care Provider: Cahlo Tan DO This is a 65-year-old male with PMHx of recent CVA at end of November 2020 involving the left thalamus, left cerebral peduncle, right medial temporal lobe causing ambulatory dysfunction and frequent falls, HTN, HLD, DM type I, PVD, right great toe diabetic ulceration, presents to the ER with back pain status p ost a fall at home. Patient reports that he fell 4 days ago and then again today. He denies lightheadedness or dizziness or sustaining an injury to his head with either of these falls. Recently the patient was admitted from the end of November to December 31, 2020 for a CVA, after hospital stay he was admitted to [facility] for continued rehab and was discharged from there at the end of last week (01/12 or 01/13), lives at home with his brother. Since then he has been dissipating and exercises, and using ambulatory devices. Patient's main complaint today is of back pain that he feels is in the mid back,"at the bottom of my rib cage" as well as a low back pain during the exam. He rates pain as a 4/10, dull, achey. Denies pain medications by mouth. He would prefer to use heat, ice or lidocaine patch. He denies any focal weakness in his extremities. Patient denies any other acute complaints. He admits to constipation where his last bowel movement was 4 days ago, and states this is normal for him. He does not typically use MiraLAX or stool softeners as did not seem to help, but reports that when he eats ice cream this helps to move his bowels. Denies lactose intolerance. Allergies Allergy/AdvReac Type Severity Reaction Status Date / Time levofloxacin Allergy Unknown "nervous" Verified 01/18/21 08:01 shrimp AdvReac Unknown NAUSEA Verified 01/18/21 08:01 Home Medications Medication Instructions Recorded Confirmed Type amlodipine 5 mg tablet 5 mg PO QAM 10/19/18 01/19/21 History aspirin 81 mg tablet,delayed 81 mg PO QAM 10/19/18 01/19/21 History release (Aspirin Low Dose) insulin glargine 100 unit/mL (3 35 unit SUBCUT QAM 02/26/20 01/19/21 History mL) subcutaneous pen (Lantus Solostar U-100 Insulin) atorvastatin 40 mg tablet 40 mg PO HS #30 tab 07/08/20 01/19/21 Rx fexofenadine 60 mg-pseudoephedrine 1 tab PO BID #14 tab 07/08/20 01/19/21 Rx ER 120 mg tablet,ext.release,12 hr (Merari-D 12 Hour) clopidogrel 75 mg tablet 75 mg PO QAM #30 tab 12/31/20 01/19/21 Rx gabapentin 300 mg capsule 600 mg PO BID cap 01/17/21 01/19/21 History losartan 25 mg tablet 25 mg PO QAM tab 01/17/21 01/19/21 History insulin aspart U-100 100 unit/mL 3 unit SUBCUT TIDM 01/19/21 01/19/21 History (3 mL) subcutaneous pen Past Med/Surg History Medical History (Updated 01/19/21 @ 17:51 by Hailee Stanton PA-C) Acute hyperglycemia Acute thoracic back pain Ambulatory dysfunction CKD (chronic kidney disease) COVID-19 COVID-19 Diabetic neuropathy Difficult airway for intubation Glidescope 2012 Dizziness DM type 1 (diabetes mellitus, type 1) Fall Falls frequently History of heart block Patient presented to [facility] 03/2013 for elective L foot I&D. On induction with propofol in OR pt went into 3rd degree HB. Pt intubated and given 1 dose of Epi, which resolved HB but diffuse ST depression remained. Surgery aborted, pt to PACU, where ST segments returned to baseline and pt was extubated. Cardio consulted, echo WNL, no etiology discovered for HB, ST depression felt 2/2 strain from Epi or apnea. No further testing or intervention recommended. History of osteomyelitis Hyperlipidemia Low back pain Osteomyelitis of left foot history of Pulmonary nodule PVD (peripheral vascular disease) Vertigo history of--hypoglycemia Surgical History H/O eye surgery both eyes, corrective lens implant History of colonoscopy 8 years ago S/P amputation of lesser toe "right second and third toe" Family History Brother Diabetes Social History Smoking Status: Never smoker Second Hand Exposure: No; Hx Alcohol Use: Yes Alcohol type: beer Alcohol Intake Frequency: 2-4 x/Month Hx Substance Use: No Preferred Language: [place] Communication Ability: Effective Fish Machine Feeder Required: No Beliefs That Will Affect Care: None marital status: Single Current Living Situation: Family Current Living Situation Comment: Lives with brother current occupational status: retired How many Children do You have: 0 Feels Safe at Home: Yes caffeine: No Assistive Devices: Walker Review of Systems Review of Systems: Constitutional: No fever, sweats or chills Eyes: No diplopia, no worsening or blurred vision ENT: normal hearing, no trouble swallowing Respiratory: No cough, sputum, dyspnea at rest or on exertion Cardiovascular: No chest pain, tightness or palpitations Abdomen: No pain, nausea, vomiting, diarrhea. +constipation, last BM 4 days ago. Back: pain around mid back near base of his ribs, Musculoskeletal: No joint pain, calf pain, swelling Neurologic: No weakness, numbness/tingling, or balance problems Psychiatric: No anxiety or depression Skin: No rash or itch Physical Exam Physical Exam: General: awake, alert, no apparent distress Head: Normocephalic, atraumatic ENT: PERRL, EOMI, no pharyngeal exudate, mucous membranes moist Chest: Clear to auscultation, on room air, no adventitious breath sounds Cardiac: Regular rate and rhythm, no murmur, no JVD, normal peripheral pulses, good capillary refill Abdominal: NABS x 4 quadrants, soft, nondistended, nontender to palpation, no rebound or guarding Back: + tenderness at level of T10-T11, tenderness at L4-L5 Extremities: Normal inspection, no peripheral edema or erythema, calfs nontender to palpation Psych: Normal mood and affect Neuro: AAO x 3, strength intact bilaterally and rated 5/5, no motor deficits, speech is clear, no peripheral sensory deficits Results & Data Results & Data ([facility]) Vital Signs (Past 12 Hours) Vital Signs Temp Pulse Pulse Resp BP BP Pulse Ox 01/19/21 13:55 67 20 129/78 98 01/19/21 13:12 36.5 C 84 18 106/60 95 Diagnostic Findings Chest X-Ray 01/19/21 14:28 SINGLE VIEW CHEST CLINICAL HISTORY: Generalized weakness. FINDINGS: An AP, portable, upright chest radiograph is compared to study dated 12/26/2020 and correlated with chest CT dated 02/17/2020. An electronic device partially obscures the left mid chest. The heart is top normal for projection noting atherosclerotic calcification of the thoracic aorta. The lungs and pleural spaces are clear. No pneumothorax is seen. There are chronic bilateral rib fractures. IMPRESSION: No active disease in the chest. ACT 112: Negative or not required by law. Electronically signed by: Jonathan Merrill M.D. 01/19/2021 3:[address] 01/19/21 14:28 CT lumbar spine wo con CT DOSE: 617.76 mGy.cm CLINICAL HISTORY: midline LBP; fall several days ago TECHNIQUE: Helical images were acquired in transverse plane. Reformatted sagittal and coronal images were reviewed. A dose lowering technique was utilized adhering to the principles of ALARA. CONTRAST: No contrast was administered COMPARISON STUDY: None. FINDINGS: There are nonobstructing left renal calculi. Renal vascular calcifications are also present. L1-2 level: There is no evidence of significant disc bulge or focal herniation. There is no evidence of spinal or foraminal stenosis. L2-3 level: There is no evidence of significant disc bulge or focal herniation. There is no evidence of spinal or foraminal stenosis. L3-4 level: There is a minimal circumferential disc bulge. There is no significant spinal or foraminal stenosis L4-5 level: There is a tiny central disc protrusion in association with a minor circumferential disc bulge. There is minimal impression on the anterior thecal sac. There is no significant foraminal narrowing L5-S1 level: No acute fractures or traumatic subluxations are visualized. IMPRESSION: 1. Mild multilevel spondylytic changes with a tiny central disc protrusion at the L4-5 level 2. No acute fractures or traumatic subluxations identified. ACT 112: Negative or not required by law. Electronically signed by: Jacob Reyes M.D. 01/19/2021 3:49 PM ECG Additional Comments: Test Reason : Blood Pressure : / mmHG Vent. Rate : 067 BPM Atrial Rate : 067 BPM P-R Int : 164 ms QRS Dur : 080 ms QT Int : 398 ms P-R-T Axes : 042 003 079 degrees QTc Int : 420 ms Normal sinus rhythm Low voltage QRS Borderline ECG When compared with ECG of 27-DEC-2020 06:07, No significant change was found Confirmed by Tanner Wolf ([id number]) on 01/19/2021 3:16:37 PM Code Status & VTE Plan Code Status DNR/DNI -discussed with the patient at bedside Supervising Physician Co-Signing Physician Notes Patient is a 65-year-old male with history of CVA, H/O COVID, frequent falls, ambulatory dysfunction, diabetes, hyperlipidemia, right great toe diabetic ulceration and other medical problems presents with history of fall, worsening back pain. Patient was recently diagnosed to have stroke in November 2019 and was discharged to rehab facility. Patient was discharged home from rehab facility 6 days ago. He is unsure about when he fell but records suggest 4 days ago. He denies any head trauma, loss of consciousness. Uses walker for ambulation. States having back pain which is nonradiating dull, constant pain. Patient had debridement of right great toe diabetic ulcer 2 days ago. Please review HPI for complete details of presentation. Lumbar CT suggestive of mild multilevel spondylotic changes with a tiny central disc protrusion at L4-L5 level. No acute fractures or traumatic subluxation noted. Chest x-ray showed chronic bilateral rib fractures. Blood work suggestive hyperglycemia 55. Creatinine 1.59 at baseline. On exam patient is moderately built and nourished, no apparent distress, normocephalic atraumatic, EOMI, lungs-normal breath sounds, clear to auscultation,+ Zio patch on chest, S1-S2, no murmur, no pedal edema, abdomen soft, nontender, normal bowel sounds, back-multilevel tenderness thoracic and lumbar regions. Alert, awake, oriented, grossly no focal deficits. Patient is admitted for management of lumbago, ambulatory dysfunction, multiple falls. Will consult orthopedics for further input on disc protrusion. Thoracic x-ray pending. Pain control. Fall precautions, PT OT. May need placement. Monitor renal function and avoid any nephrotoxic agents as able. Patient is on aspirin, Plavix for 21 days until 724. Plan to discontinue aspirin and continue as Plavix alone for recent CVA. Monitor blood glucose levels for hyperglycemia. Wound care nurse consulted for right great toe diabetic ulcer. Needs follow-up with Dr. Reynolds for further management. I personally reviewed the record. Patient is interviewed and examined at bedside. Patient's care is coordinated with Hailee Stanton PA-C. Please refer to the documentation above for details of patient's presentation and for discussion of other issues. (1) DM type 1 (diabetes mellitus, type 1) Diabetes mellitus complication status: without complication Qualified Code(s): E10.9 - Type 1 diabetes mellitus without complications (2) CKD (chronic kidney disease) Chronic kidney disease stage: unspecified stage Qualified Code(s): N18.9 - Chronic kidney disease, unspecified (3) Fall Encounter type: initial encounter Qualified Code(s): W19.XXXA - Unspecified fall, initial encounter
[2021-01-19] MEDS ORDERED: PHARMACY GLYCEMIC MGMT CONSULT STA (17:02)
[2021-01-19] MEDS ORDERED: ONDANSETRON INJ 2 MG/ML 2 ML VIAL IV PRN (18:16)
[2021-01-19] MEDS ORDERED: GLUCOSE 40% GEL 15 GM TUBE PO PRN (18:16)
[2021-01-19] MEDS ORDERED: GLUCOSE 10 TABS/TUBE PO PRN (18:16)
[2021-01-19] MEDS ORDERED: oxyCODONE/ACETAMINOPHEN 5mg/325mg TAB PO PRN (18:16)
[2021-01-19] MEDS ORDERED: DEXTROSE 50% 50 ML SYRINGE IV PRN (18:16)
[2021-01-19] MEDS ORDERED: ACETAMINOPHEN 325 MG TAB PO PRN (18:16)
[2021-01-19] MEDS ORDERED: GLUCAGON FOR INJ 1 MG VIAL SQ PRN (18:16)
[2021-01-19] MEDS ORDERED: CARBOHYDRATES FOR HYPOGLYCEMIA PO PRN (18:16)
[2021-01-19] MEDS ORDERED: PHARMACY GLYCEMIC MGMT CONSULT PRN (18:34)
--- NOTE | 2021-01-19 19:21 | Pharmacy Report ---
Pharmacy Glycemic Short Note 2 - Date of Service January 19, 2021 - Glycemic Short BSG Results (Last 24 hours): 01/19/21 01/19/21 01/19/21 13:56 18:39 18:40 Glucose 55 L POC Glucose 64 L* 67 L* 01/19/21 18:59 Glucose POC Glucose 83 OUTPATIENT ANTIDIABETIC REGIMEN: * Lantus 35 units; Novolog 3 units with meals * A1c 9.0% 12/27/20 ASSESSMENT: * GA is admitted with a back injury/fall. He has type 1 diabetes. Patient was hypoglycemic in the ED and upon admission. Patient reports last lantus use was 01/18 AM and patient has not eaten anything today. * Outpatient regimen is very basal heavy (~80% basal), suspect this helps cover mealtime carbs. Pt reports to nurse frequently not checking BSGs. With past admission patient was requiring a lower lantus dose. Will not hold lantus as patient is a type I and will require some basal but will reduce dose empirically by 30-40% * Will initiate weight based stress of 2 novolog. Will monitor as needed for adjustments. PLAN FOR INPATIENT GLYCEMIC CONTROL: * Hold outpatient oral diabetes medications * Basal insulin * Lantus 20/24 units SQ x1 per scale * Bolus insulin * NovoLog per scale ACHS or Q6hrs while NPO * Goal Range: Low 110 mg/dL - High 140 mg/dL * Correction Factor: 30 mg/dL/unit * Nutritional / Prandial insulin per carb ratio of 1 unit per 10 grams CHO consumed
--- NOTE | 2021-01-19 20:14 | XRay Report ---
THORACIC SPINE 3 VIEWS HISTORY: Back pain, fall COMPARISON: December 26, 2020 FINDINGS: No acute fracture or dislocation seen. Redemonstration of mild anterior wedging within mid thoracic spine associated with intervertebral dis c space narrowing and anterior osteophytes wire also seen during recent prior study and might represe nt degenerative process. IMPRESSION: No fracture or subluxation within the thoracic spine. ACT 112: Negative or not required by law. Electronically signed by: Edwige Lopez DO 01/19/2021 8:12 PM
[2021-01-19] MEDS: bisacodyL 5 MG TABEC PO SCH (21:40)
[2021-01-19] MEDS: POLYETHYLENE (MIRALAX) 17 GM PACK PO SCH (21:40)
[2021-01-19] MEDS: LIDOCAINE 5% 1 PATCH TD SCH (21:40)
[2021-01-19] MEDS: GABAPENTIN 300 MG CAP PO SCH (22:14)
[2021-01-19] MEDS: ATORVASTATIN 40 MG TAB PO SCH (22:15)
[2021-01-19] MEDS: HEPARIN SOD 5,000 UNIT/0.5 ML VIAL SQ SCH (22:15)
[2021-01-19] MEDS: INSULIN GLARGINE SOLOSTAR 100 UNITS/ML 3 ML PEN SC SCH (22:17)
[2021-01-19] MEDS: INSULIN ASPART 100 UNITS/ML 3 ML PEN SC SCH (22:19)
[2021-01-20] MEDS: INSULIN ASPART 100 UNITS/ML 3 ML PEN SC SCH ×6 (00:21→22:13)
[2021-01-20 06:43] LABS: Hematocrit (blood only) 38.7 % (42-52); Mean Corpuscular Hemoglobin 29.7 pg (25-34); Mean Corpuscular Hgb Conc 33.6 g/dL (32-36); Mean Corpuscular Volume 88.6 fL (80-100); Mean Platelet Volume 11.1 fL (7.4-10.4); Platelet Count 206 K/uL (130-400); RDW Coefficient of Variation 12.8 % (11.5-14.5); Red Blood Count 4.37 M/uL (4.7-6.1); White Blood Count 5.74 K/uL (4.8-10.8)
[2021-01-20 07:10] LABS: Albumin Level 2.9 gm/dl (3.4-5.0); BUN Creatinine Ratio 20.9 (10-20); Calcium 8.9 mg/dl (8.5-10.1); Est GFR (Non-African American) 46.6 ml/min; Potassium 4.4 mmol/L (3.5-5.1)
[2021-01-20 07:13] LABS: Albumin Globulin Ratio 0.9 (0.9-2); Bilirubin,Total 0.7 mg/dl (0.2-1); Globulin 3.4 gm/dl (2.5-4.0); Total Protein 6.3 gm/dl (6.4-8.2)
[2021-01-20] MEDS: amLODIPine BESYLATE 5 MG TAB PO SCH (07:58)
[2021-01-20] MEDS: LIDOCAINE 5% 1 PATCH TD SCH (07:58)
[2021-01-20] MEDS: CLOPIDOGREL BISULFATE 75 MG TAB PO SCH (07:58)
[2021-01-20] MEDS: ASPIRIN 81 MG ECTAB PO SCH (07:58)
[2021-01-20] MEDS: GABAPENTIN 300 MG CAP PO SCH ×2 (07:58→22:11)
[2021-01-20] MEDS: LOSARTAN POTASSIUM 25 MG TAB PO SCH (07:58)
[2021-01-20] MEDS: bisacodyL 5 MG TABEC PO SCH (07:59)
[2021-01-20] MEDS: POLYETHYLENE (MIRALAX) 17 GM PACK PO SCH (07:59)
[2021-01-20] MEDS: HEPARIN SOD 5,000 UNIT/0.5 ML VIAL SQ SCH ×2 (07:59→22:12)
--- NOTE | 2021-01-20 12:31 | Orthopedic Consultation ---
Date of Consultation January 20, 2021 Assessment & Plan (1) Back pain: Patient presents with mechanical lower back pain likely related to his immobility secondary to his CVA. He does not have any radicular complaints or new neurologic deficits. I recommended inpatient Occupational Therapy and physical therapy evaluation as well as following up as an outpatient with physical therapy. Medical management for his pain may also be indicated. There is no indication for surgical intervention. I reviewed the films the case with Dr. Bowman and he agrees. He may follow-up with his primary care physician as an outpatient for further care. History of Present Illness Attending Physician: Kennedi Mckeon DO History of Present Illness Patient is a 65-year-old male with a history significant for recent CVA in early of December this year. He has had ambulatory dysfunction ever since. Patient is a bit of a poor historian based on presentation today. He states he has had back pain for a number of years. Has been there in a fairly constant fashion but seems to be worse at this point. He has not had any physical therapy or any nonoperative treatment. He does not have any radiation of pain. He states it hurts in between his shoulder blades and along his waistband. He denies any other numbness or tingling. He denies any other weakness in his legs not relate d to his recent CVA. Allergies Allergy/AdvReac Type Severity Reaction Status Date / Time levofloxacin Allergy Unknown "nervous" Verified 01/18/21 08:01 shrimp AdvReac Unknown NAUSEA Verified 01/18/21 08:01 Home Medications Medication Instructions Recorded Confirmed Type amlodipine 5 mg tablet 5 mg PO QAM 10/19/18 01/19/21 History aspirin 81 mg tablet,delayed 81 mg PO QAM 10/19/18 01/19/21 History release (Aspirin Low Dose) insulin glargine 100 unit/mL (3 35 unit SUBCUT QAM 02/26/20 01/19/21 History mL) subcutaneous pen (Lantus Solostar U-100 Insulin) atorvastatin 40 mg tablet 40 mg PO HS #30 tab 07/08/20 01/19/21 Rx fexofenadine 60 mg-pseudoephedrine 1 tab PO BID #14 tab 07/08/20 01/19/21 Rx ER 120 mg tablet,ext.release,12 hr (Merari-D 12 Hour) clopidogrel 75 mg tablet 75 mg PO QAM #30 tab 12/31/20 01/19/21 Rx gabapentin 300 mg capsule 600 mg PO BID cap 01/17/21 01/19/21 History losartan 25 mg tablet 25 mg PO QAM tab 01/17/21 01/19/21 History insulin aspart U-100 100 unit/mL 3 unit SUBCUT TIDM 01/19/21 01/19/21 History (3 mL) subcutaneous pen Patient History Medical History (Updated 01/19/21 @ 18:31 by Jayson Mejia MD) Acute hyperglycemia Acute thoracic back pain Ambulatory dysfunction CKD (chronic kidney disease) COVID-19 COVID-19 Diabetic neuropathy Difficult airway for intubation Glidescope 2012 Dizziness DM type 1 (diabetes mellitus, type 1) Fall Falls frequently History of heart block Patient presented to [facility] 03/2013 for elective L foot I&D. On induction with propofol in OR pt went into 3rd degree HB. Pt intubated and given 1 dose of Epi, which resolved HB but diffuse ST depression remained. Surgery aborted, pt to PACU, where ST segments returned to baseline and pt was extubated. Cardio consulted, echo WNL, no etiology discovered for HB, ST depression felt 2/2 strain from Epi or apnea. No further testing or intervention recommended. History of osteomyelitis Hyperlipidemia Low back pain Osteomyelitis of left foot history of Pulmonary nodule PVD (peripheral vascular disease) Vertigo history of--hypoglycemia Surgical History H/O eye surgery both eyes, corrective lens implant History of colonoscopy 8 years ago S/P amputation of lesser toe "right second and third toe" Family History Brother Diabetes Social History Smoking Status: Never smoker Second Hand Exposure: No; Hx Alcohol Use: Yes Alcohol type: hard liquor Alcohol Intake Frequency: 2-4 x/Month Hx Substance Use: No Preferred Language: Beninese Communication Ability: Effective First Officer And Flight Instructor Required: No Beliefs That Will Affect Care: None marital status: Single Current Living Situation: Family Current Living Situation Comment: lives with brother current occupational status: retired How many Children do You have: 0 Other Information That Helps Us Care for You: No Feels Safe at Home: Yes Safety Concerns: Feels Safe At This Time caffeine: No Assistive Devices: Glasses Physical Exam Physical Exam: On exam he is alert and oriented. Is seen bedside in room 305. Is able to logroll from side to side with mild difficulty. He has some weakness in the anterior tibialis and EHL on the right-hand side as compared to left Results & Data ([facility]) Vital Signs (Past 12 Hours) Vital Signs Temp Pulse Resp BP Pulse Ox 01/20/21 07:16 36.8 C 76 18 127/84 97 (1) Back pain Back pain laterality: midline Back pain location: low back pain Chronicity: acute Sciatica presence: without sciatica Qualified Code(s): M54.5 - Low back pain
--- NOTE | 2021-01-20 14:30 | Hospitalist Progress Note ---
Date of Service January 20, 2021 Assessment & Plan (1) Back pain: Plan: Likely related to MSK pain from recent falls at home. Ortho spine evaluated him and recommended PT/OT which is ordered and pain control at this time. He is doing well on a lidocaine patch. Will cont to try to avoid narcotics in setting of recent stroke and high fall risk. (2) Fall: Plan: multifactorial including recent hospitalization for stroke and ambulatory dysfunction with weakness. Cont PT/OT and likely transition to rehab or SNF. (3) History of CVA (cerebrovascular accident): Plan: Recently hospitalized for CVA in Nov 2020 and has been on DAPT since that time. ASA to stop 01/21 and cont Plavix for secondary prevention. Cont Lipitor. (4) DM type 1 (diabetes mellitus, type 1): Plan: per glycemic pharmacist. -A1c = 9.0 on 12/27/2020 (5) Hyperlipidemia: Plan: -Continue statin therapy (6) PVD (peripheral vascular disease): Plan: -Chronic, stable, cont current medical therapy. (7) HTN (hypertension): Plan: -Continue amlodipine 5 mg daily, losartan 25 mg daily (8) Constipation: Plan: - Add miralax, dulcolax to start tonight. Pt last BM was 4 days ago. (9) CKD (chronic kidney disease): Plan: - Cr. 1.59/ BUN 31, appears that his baseline is about 1.6-1.8, may continue medications as above. - Trend with a.m. labs (10) Diabetic ulcer of right great toe: Plan: -History of such, currently following with [facility] wound clinic as an outpatient, ongoing for approximately 6 weeks, no history of osteomyelitis, was debrided recently on 01/17/2021, will consult wound nurse here in the hospital -Follows with Ortho with Dr. Reynolds who is planning amputation of the great to tomorrow morning. -Continue offloading footwear-defer to ortho to order post op (11) Ambulatory dysfunction: Plan: PT/OT (12) DVT prophylaxis: Plan: heparin DNR Dispo-uncertain at this time DO [facility] Hospitalist Admission and Anticipated Discharge Date Admission Date: January 19, 2021 Subjective 65 yo M with acute lower back pain Generalized weakness and general lack on insight into his medical issues. Recent hospitalization for a stroke and multiple falls at home. Lives with his brother. In one moment states he wants to go home, then states he is ok staying for the weekend. Still reports some lower back pain. Review of Systems Review of Systems: All systems were reviewed and negative except as indicated in HPI above. Physical Exam Physical Exam: CONSTITUTIONAL: WNWD, vitals as above, NAD EYES: normal conjunctivae, no scleral icterus ENT: external ear and nose normal, oropharynx clear RESPIRATORY: clear to auscultation bilaterally, no crackles, rales or wheezes, normal respiratory effort CARDIOVASCULAR: regular rate and rhythm, S1 and 2 heard without murmurs, gallops or rubs, no JVD, no peripheral edema GASTROINTESTINAL: soft, nontender, nondistended MUSCULOSKELETAL: strength 5/5 throughout, head is normocephalic and atraumatic, neck supple, normal palpation of chest wall without tenderness SKIN: warm and dry, lidocaine patch on back NEUROLOGIC: No facial palsy, CN 2-12 grossly intact, no sensory deficit, normal cognition, normal speech, no tremor PSYCHIATRIC: alert cooperative and oriented to person, place and time. Results & Data Results & Data ([facility]) Vital Signs (Past 12 Hours) Vital Signs Temp Pulse Resp BP Pulse Ox 01/20/21 07:16 36.8 C 76 18 127/84 97 Laboratory Results Short CBC 01/19/21 01/20/21 Range/Units 13:56 05:25 WBC 6.12 5.74 (4.8-10.8) K/uL Hgb 13.7 L 13.0 L (14.0-18.0) g/dL Hct 39.7 L 38.7 L (42-52) % Plt Count 211 206 (130-400) K/uL BMP 01/19/21 01/20/21 13:56 05:25 Sodium 143 140 Potassium 4.1 4.4 Chloride 111 H 110 H Carbon Dioxide 27 29 BUN 31 H 33 H Creatinine 1.59 H 1.56 H Glucose 55 L 80 Calcium 9.1 8.9 Liver Function 01/19/21 01/20/21 Range/Units 13:56 05:25 Total Bilirubin 0.8 0.7 (0.2-1) mg/dl AST 81 H 94 H (15-37) U/L ALT 84 H 102 H (12-78) U/L Alkaline Phosphatase 108 104 (45-117) U/L Albumin 3.2 L 2.9 L (3.4-5.0) gm/dl Urine 01/19/21 Range/Units 13:56 Urine Color Yellow Urine Appearance Clear (Clear) Urine pH 5.0 (4.5-7.5) Ur Specific Lewis 1.017 (1.000-1.030) Urine Protein 1+ H (Negative) Urine Glucose (UA) Negative (Negative) Medications Administered Current Inpatient Medications Acetaminophen (Acetaminophen 325 Mg Tab) 650 mg PO Q4H PRN PRN Reason: Moderate Pain Stop: 02/18/21 18:15 Last Admin: 01/20/21 07:57 Dose: 650 mg Documented by: Amlodipine Besylate (Amlodipine Besylate 5 Mg Tab) 5 mg PO QAM [facility] Stop: 02/19/21 08:59 Last Admin: 01/20/21 07:58 Dose: 5 mg Documented by: Aspirin (Aspirin 81 Mg Ectab) 81 mg PO QAM [facility] Stop: 01/21/21 09:01 Last Admin: 01/20/21 07:58 Dose: 81 mg Documented by: Atorvastatin Calcium (Atorvastatin 40 Mg Tab) 40 mg PO HS [facility] Stop: 02/18/21 20:59 Last Admin: 01/19/21 22:15 Dose: 40 mg Documented by: Bisacodyl (Bisacodyl 5 Mg Tabec) 5 mg PO DAILY [facility] Stop: 02/18/21 18:15 Last Admin: 01/20/21 07:59 Dose: Not Given Documented by: Clopidogrel Bisulfate (Clopidogrel Bisulfate 75 Mg Tab) 75 mg PO QAM [facility] Stop: 02/19/21 08:59 Last Admin: 01/20/21 07:58 Dose: 75 mg Documented by: Dextrose (Dextrose 50% 50 Ml Syringe) 25 - 50 ml IV UD PRN; Protocol PRN Reason: Hypoglycemia Protocol Stop: 02/18/21 18:15 Gabapentin (Gabapentin 300 Mg Cap) 600 mg PO BID [facility] Stop: 02/18/21 20:59 Last Admin: 01/20/21 07:58 Dose: 600 mg Documented by: Glucagon (Glucagon For Inj 1 Mg Vial) 1 mg SQ UD PRN; Protocol PRN Reason: Hypoglycemia Protocol Stop: 02/18/21 18:15 Glucose (Glucose 10 Tabs/Tube) 4 - 8 tabs PO UD PRN; Protocol PRN Reason: Hypoglycemia Protocol Stop: 02/18/21 18:15 Glucose (Glucose 40% Gel 15 Gm Tube) 15 - 30 gm PO UD PRN; Protocol PRN Reason: Hypoglycemia Protocol Stop: 02/18/21 18:15 Heparin Sodium (Porcine) (Heparin Sod 5,000 Unit/0.5 Ml Vial) 5,000 units SQ Q12 [place] Stop: 02/18/21 20:59 Last Admin: 01/20/21 07:59 Dose: 5,000 units Documented by: Insulin Aspart (Insulin Aspart 100 Units/Ml 3 Ml Pen) 0 units SC ACHS [place] Stop: 02/18/21 20:59 Last Admin: 01/20/21 12:55 Dose: 8 units Documented by: Insulin Glargine (Insulin Glargine Solostar 100 Units/Ml 3 Ml Pen) 0 units SC HS [place]; Protocol Stop: 02/18/21 20:59 Last Admin: 01/19/21 22:17 Dose: 24 units Documented by: Lidocaine (Lidocaine 5% 1 Patch) 1 patch TD QAM [facility] Stop: 02/18/21 18:29 Last Admin: 01/20/21 07:58 Dose: 1 patch Documented by: Losartan Potassium (Losartan Potassium 25 Mg Tab) 25 mg PO QAM [facility] Stop: 02/19/21 08:59 Last Admin: 01/20/21 07:58 Dose: 25 mg Documented by: Miscellaneous (Fexofenadine-Pseudoephedrine [Merari-D 12 Hour] 60-120 Mg Table~Order Awaiting Action) 1 ea N/A QS [facility] Stop: 02/19/21 00:00 Last Admin: 01/20/21 07:50 Dose: Not Given Documented by: Miscellaneous (Carbohydrates For Hypoglycemia ) 15 - 30 gm PO UD PRN PRN Reason: Hypoglycemia Protocol Stop: 02/18/21 18:15 Last Admin: 01/19/21 18:44 Dose: 15 gm Documented by: Miscellaneous (Remove Lidoderm Patch) 1 ea N/A DAILY@2100 [facility] Stop: 02/18/21 20:59 Last Admin: 01/19/21 22:16 Dose: Not Given Documented by: Miscellaneous Information (Pharmacy Glycemic Mgmt Consult) 1 ea N/A UD PRN; Protocol PRN Reason: Consult Stop: 02/18/21 18:33 Ondansetron HCl (Ondansetron Inj 2 Mg/Ml 2 Ml Vial) 4 mg IV Q4H PRN PRN Reason: Nausea And Vomiting Stop: 02/18/21 18:15 Oxycodone/Acetaminophen (Oxycodone/Acetaminophen 5mg/325mg Tab) 1 tab PO Q6H PRN PRN Reason: Pain Stop: 02/02/21 18:15 Polyethylene Glycol (Polyethylene (Miralax) 17 Gm Pack) 17 gm PO DAILY [place] Stop: 02/18/21 18:15 Last Admin: 01/20/21 07:59 Dose: 17 gm Documented by: (1) DM type 1 (diabetes mellitus, type 1) Diabetes mellitus complication status: without complication Qualified Code(s): E10.9 - Type 1 diabetes mellitus without complications (2) CKD (chronic kidney disease) Chronic kidney disease stage: unspecified stage Qualified Code(s): N18.9 - Chronic kidney disease, unspecified (3) Fall Encounter type: initial encounter Qualified Code(s): W19.XXXA - Unspecified fall, initial encounter
--- NOTE | 2021-01-20 16:20 | Orthopedic Consultation ---
Date of Consultation January 20, 2021 Assessment & Plan (1) Diabetic ulcer of right great toe: The dressing was changed and new Aquacel was applied at the ulcerated areas. MRI of the right foot to rule out osteomyelitis of the remaining phalanx of the great toe. We will keep the patient n.p.o. after midnight in case the patient may be taken to the OR tomorrow. Preferably nonweightbearing on the right lower extremity. Heel weightbearing if necessary. History of Present Illness Reason for Consultation: Right great toe ulcer Attending Physician: Kennedi Mckeon, History of Present Illness This is a patient who is well-known to us who has had multiple neuropathic ulcers on his right foot resulting in partial amputation of toes. More recently, we have been seeing him for a great toe ulceration that has been treated conservatively. He was recently admitted for back pain secondary to multiple falls. He had recently suffered a CVA and has had balance issues since that time. Allergies Allergy/AdvReac Type Severity Reaction Status Date / Time levofloxacin Allergy Unknown "nervous" Verified 01/18/21 08:01 shrimp AdvReac Unknown NAUSEA Verified 01/18/21 08:01 Home Medications Medication Instructions Recorded Confirmed Type amlodipine 5 mg tablet 5 mg PO QAM 10/19/18 01/19/21 History aspirin 81 mg tablet,delayed 81 mg PO QAM 10/19/18 01/19/21 History release (Aspirin Low Dose) insulin glargine 100 unit/mL (3 35 unit SUBCUT QAM 02/26/20 01/19/21 History mL) subcutaneous pen (Lantus Solostar U-100 Insulin) atorvastatin 40 mg tablet 40 mg PO HS #30 tab 07/08/20 01/19/21 Rx fexofenadine 60 mg-pseudoephedrine 1 tab PO BID #14 tab 07/08/20 01/19/21 Rx ER 120 mg tablet,ext.release,12 hr (Merari-D 12 Hour) clopidogrel 75 mg tablet 75 mg PO QAM #30 tab 12/31/20 01/19/21 Rx gabapentin 300 mg capsule 600 mg PO BID cap 01/17/21 01/19/21 History losartan 25 mg tablet 25 mg PO QAM tab 01/17/21 01/19/21 History insulin aspart U-100 100 unit/mL 3 unit SUBCUT TIDM 01/19/21 01/19/21 History (3 mL) subcutaneous pen Patient History Medical History (Updated 01/19/21 @ 18:31 by Jayson Mejia MD) Acute hyperglycemia Acute thoracic back pain Ambulatory dysfunction CKD (chronic kidney disease) COVID-19 COVID-19 Diabetic neuropathy Difficult airway for intubation Glidescope 2012 Dizziness DM type 1 (diabetes mellitus, type 1) Fall Falls frequently History of heart block Patient presented to [facility] 03/2013 for elective L foot I&D. On induction with propofol in OR pt went into 3rd degree HB. Pt intubated and given 1 dose of Epi, which resolved HB but diffuse ST depression remained. Surgery aborted, pt to PACU, where ST segments returned to baseline and pt was extubated. Cardio consulted, echo WNL, no etiology discovered for HB, ST depression felt 2/2 strain from Epi or apnea. No further testing or intervention recommended. History of osteomyelitis Hyperlipidemia Low back pain Osteomyelitis of left foot history of Pulmonary nodule PVD (peripheral vascular disease) Vertigo history of--hypoglycemia Surgical History H/O eye surgery both eyes, corrective lens implant History of colonoscopy 8 years ago S/P amputation of lesser toe "right second and third toe" Family History Brother Diabetes Social History Smoking Status: Never smoker Second Hand Exposure: No; Hx Alcohol Use: Yes Alcohol type: hard liquor Alcohol Intake Frequency: 2-4 x/Month Hx Substance Use: No Preferred Language: Belarusian Communication Ability: Effective [employer] Autom[employer] Required: No Beliefs That Will Affect Care: None marital status: Single Current Living Situation: Family Current Living Situation Comment: lives with brother current occupational status: retired How many Children do You have: 0 Other Information That Helps Us Care for You: No Feels Safe at Home: Yes Safety Concerns: Feels Safe At This Time caffeine: No Assistive Devices: Glasses Physical Exam Constitutional: WD/WN, vitals as above Neck: trachea midline, no thyromegaly Skin: no rashes, warm and dry + ulcer (Right great toe: Partial amputation with 1 cm in diameter plantar ulceratio) Trauma: no evidence of skin trauma Right great toe: The ulceration had surrounding sloughing skin. This area was removed and exposed to other smaller ulcerations. During the dressing change, there was Aquacel packed into the ulceration there was at least 1-1.5 centimeters deep. Neurologic: + abnormal touch/pain/proprioception (Decreased sensation bilateral lower extremities secondary to neuropathy) Psychiatric: A+Ox3, euthymic affect Speech: normal rate/rhythm/volume of speech Results & Data ([facility]) Vital Signs (Past 12 Hours) Vital Signs Temp Pulse Resp BP Pulse Ox 01/20/21 07:16 36.8 C 76 18 127/84 97
[2021-01-20] MEDS: ATORVASTATIN 40 MG TAB PO SCH (22:11)
[2021-01-20] MEDS: INSULIN GLARGINE SOLOSTAR 100 UNITS/ML 3 ML PEN SC SCH (22:14)
[2021-01-21] MEDS ORDERED: Nursing to Pharmacy Communication SCH (00:30)
[2021-01-21] MEDS ORDERED: INSULIN ASPART 100 UNITS/ML 3 ML PEN SC SCH (02:00)
[2021-01-21 06:36] LABS: Hematocrit (blood only) 38.7 % (42-52); Hemoglobin 13.2 g/dL (14.0-18.0); Mean Corpuscular Hgb Conc 34.1 g/dL (32-36); Mean Platelet Volume 11.2 fL (7.4-10.4); Platelet Count 201 K/uL (130-400); RDW Coefficient of Variation 12.8 % (11.5-14.5); RDW Standard Deviation 41.1 fL (36.4-46.3); White Blood Count 4.72 K/uL (4.8-10.8)
[2021-01-21] MEDS: INSULIN ASPART 100 UNITS/ML 3 ML PEN SC SCH ×5 (07:13→21:55)
[2021-01-21 07:36] LABS: Albumin Globulin Ratio 0.9 (0.9-2); Albumin Level 2.9 gm/dl (3.4-5.0); BUN Creatinine Ratio 26.5 (10-20); Bilirubin,Total 0.6 mg/dl (0.2-1); Creatinine Clr Calc Pharmacy 53.1 ml/min; Est GFR (Non-African American) 50.1 ml/min; Globulin 3.4 gm/dl (2.5-4.0); Potassium 4.1 mmol/L (3.5-5.1); Total Protein 6.3 gm/dl (6.4-8.2)
[2021-01-21] MEDS: CLOPIDOGREL BISULFATE 75 MG TAB PO SCH (08:26)
[2021-01-21] MEDS: LIDOCAINE 5% 1 PATCH TD SCH (08:26)
[2021-01-21] MEDS: LOSARTAN POTASSIUM 25 MG TAB PO SCH (08:26)
[2021-01-21] MEDS: GABAPENTIN 300 MG CAP PO SCH ×2 (08:27→21:53)
[2021-01-21] MEDS: HEPARIN SOD 5,000 UNIT/0.5 ML VIAL SQ SCH ×3 (08:27→21:59)
[2021-01-21] MEDS: POLYETHYLENE (MIRALAX) 17 GM PACK PO SCH (08:27)
[2021-01-21] MEDS: bisacodyL 5 MG TABEC PO SCH (08:27)
[2021-01-21] MEDS: amLODIPine BESYLATE 5 MG TAB PO SCH (08:27)
[2021-01-21] MEDS: ASPIRIN 81 MG ECTAB PO SCH (08:27)
--- NOTE | 2021-01-21 13:36 | Hospitalist Progress Note ---
Date of Service January 21, 2021 Assessment & Plan (1) Back pain: Plan: Likely related to MSK pain from recent falls at home. Ortho spine evaluated him and recommended PT/OT which is ordered and pain control at this time. He is doing well on a lidocaine patch. Will cont to try to avoid narcotics in setting of recent stroke and high fall risk. (2) Fall: Plan: multifactorial including recent hospitalization for stroke and ambulatory dysfunction with weakness. Cont PT/OT and likely transition to rehab or SNF. (3) Diabetic ulcer of right great toe: Plan: -debrided recently on 01/17/2021 -MRI foor pending -Follows with Ortho with Dr. Reynolds who is planning amputation of the great to tomorrow morning. -Continue offloading footwear-defer to ortho to order post op (4) History of CVA (cerebrovascular accident): Plan: Recently hospitalized for CVA in Nov 2020 and has been on DAPT since that time. ASA to stop 01/21 and cont Plavix for secondary prevention. Cont Lipitor. (5) DM type 1 (diabetes mellitus, type 1): Plan: per glycemic pharmacist. I contacted the glycemic pharmacist and discussed the plan after hypoglycemic episode this morning -A1c = 9.0 on 12/27/2020 (6) Hyperlipidemia: Plan: -Continue statin therapy (7) PVD (peripheral vascular disease): Plan: -Chronic, stable, cont current medical therapy. (8) HTN (hypertension): Plan: -Continue amlodipine 5 mg daily, losartan 25 mg daily (9) Constipation: Plan: - Add miralax, dulcolax. Pt last BM was 4 days ago. (10) CKD (chronic kidney disease): Plan: - Cr. 1.59/ BUN 31, appears that his baseline is about 1.6-1.8, may continue medications as above. - Trend with a.m. labs (11) Ambulatory dysfunction: Plan: PT/OT (12) DVT prophylaxis: Plan: heparin DNR Dispo-uncertain at this time DO [facility] Hospitalist Admission and Anticipated Discharge Date Admission Date: January 20, 2021 Subjective 65 yo M with acute lower back pain recent stroke one month ago, still on DAPT, reports right left is residually weak but denies other deficits. Tolerating PO. Reports his back pain is well controlled with the lidocaine patch. Review of Systems Review of Systems: All systems were reviewed and negative except as indicated in HPI above. Physical Exam Physical Exam: CONSTITUTIONAL: WNWD, vitals as above, NAD EYES: normal conjunctivae, no scleral icterus ENT: external ear and nose normal, oropharynx clear RESPIRATORY: clear to auscultation bilaterally, no crackles, rales or wheezes, normal respiratory effort CARDIOVASCULAR: regular rate and rhythm, S1 and 2 heard without murmurs, gallops or rubs, no JVD, no peripheral edema GASTROINTESTINAL: soft, nontender, nondistended MUSCULOSKELETAL: strength 5/5 throughout, head is normocephalic and atraumatic, neck supple, normal palpation of chest wall without tenderness SKIN: warm and dry, lidocaine patch on back NEUROLOGIC: No facial palsy, CN 2-12 grossly intact, no sensory deficit, normal cognition, normal speech, no tremor PSYCHIATRIC: alert cooperative and oriented to person, place and time. Results & Data Results & Data ([facility]) Vital Signs (Past 12 Hours) Vital Signs Temp Pulse Resp BP Pulse Ox 01/21/21 07:21 36.9 C 62 16 128/76 98 Laboratory Results Short CBC 01/21/21 Range/Units 06:05 WBC 4.72 L (4.8-10.8) K/uL Hgb 13.2 L (14.0-18.0) g/dL Hct 38.7 L (42-52) % Plt Count 201 (130-400) K/uL BMP 01/21/21 06:05 Sodium 140 Potassium 4.1 Chloride 108 H Carbon Dioxide 30 BUN 39 H Creatinine 1.47 H Glucose 49 L* Calcium 9.0 Liver Function 01/21/21 Range/Units 06:05 Total Bilirubin 0.6 (0.2-1) mg/dl AST 63 H (15-37) U/L ALT 106 H (12-78) U/L Alkaline Phosphatase 104 (45-117) U/L Albumin 2.9 L (3.4-5.0) gm/dl Medications Administered Current Inpatient Medications Acetaminophen (Acetaminophen 325 Mg Tab) 650 mg PO Q4H PRN PRN Reason: Moderate Pain Stop: 02/18/21 18:15 Last Admin: 01/20/21 07:57 Dose: 650 mg Documented by: Amlodipine Besylate (A[facility]odipine Besylate 5 Mg Tab) [facility] [place] Stop: 02/19/21 08:59 Last Admin: 01/21/21 08:27 Dose: 5 mg Documented by: Atorvastatin Calcium (Atorvastatin 40 Mg Tab) 40 mg PO HS [place] Stop: 02/18/21 20:59 Last Admin: 01/20/21 22:11 Dose: 40 mg Documented by: Bisacodyl (Bisacodyl 5 Mg Tabec) 5 mg PO DAILY [place] Stop: 02/18/21 18:15 Last Admin: 01/21/21 08:27 Dose: Not Given Documented by: Clopidogrel Bisulfate (Clopidogrel Bisulfate 75 Mg Tab) 75 mg PO QAM [place] Stop: 02/19/21 08:59 Last Admin: 01/21/21 08:26 Dose: 75 mg Documented by: Dextrose (Dextrose 50% 50 Ml Syringe) 25 - 50 ml IV UD PRN; Protocol PRN Reason: Hypoglycemia Protocol Stop: 02/18/21 18:15 Last Admin: 01/21/21 06:59 Dose: 50 ml Documented by: Gabapentin (Gabapentin 300 Mg Cap) 600 mg PO BID [place] Stop: 02/18/21 20:59 Last Admin: 01/21/21 08:27 Dose: 600 mg Documented by: Glucagon (Glucagon For Inj 1 Mg Vial) 1 mg SQ UD PRN; Protocol PRN Reason: Hypoglycemia Protocol Stop: 02/18/21 18:15 Glucose (Glucose 10 Tabs/Tube) 4 - 8 tabs PO UD PRN; Protocol PRN Reason: Hypoglycemia Protocol Stop: 02/18/21 18:15 Glucose (Glucose 40% Gel 15 Gm Tube) 15 - 30 gm PO UD PRN; Protocol PRN Reason: Hypoglycemia Protocol Stop: 02/18/21 18:15 Last Admin: 01/21/21 06:33 Dose: 15 gm Documented by: Heparin Sodium (Porcine) (Heparin Sod 5,000 Unit/0.5 Ml Vial) 5,000 units SQ Q12 [place] Stop: 02/18/21 20:59 Last Admin: 01/21/21 08:27 Dose: Not Given Documented by: Insulin Aspart (Insulin Aspart 100 Units/Ml 3 Ml Pen) 0 units SC Q6 [place] Stop: 02/18/21 20:59 Last Admin: 01/21/21 13:18 Dose: Not Given Documented by: Insulin Aspart (Insulin Aspart 100 Units/Ml 3 Ml Pen) 0 units SC ACHS [place] Stop: 02/20/21 13:44 Insulin Glargine (Insulin Glargine Solostar 100 Units/Ml 3 Ml Pen) 0 units SC HS [facility]; Protocol Stop: 02/18/21 20:59 Last Admin: 01/20/21 22:14 Dose: 24 units Documented by: Lidocaine (Lidocaine 5% 1 Patch) [facility] [place] Stop: 02/18/21 18:29 Last Admin: 01/21/21 08:26 Dose: 1 patch Documented by: Losartan Potassium (Losartan Potassium 25 Mg Tab) 25 mg PO QAM [facility] Stop: 02/19/21 08:59 Last Admin: 01/21/21 08:26 Dose: 25 mg Documented by: Miscellaneous (Fexofenadine-Pseudoephedrine [Merari-D 12 Hour] 60-120 Mg Table~Order Awaiting Action) 1 ea N/A QS [facility] Stop: 02/19/21 00:00 Last Admin: 01/21/21 07:14 Dose: Not Given Documented by: Miscellaneous (Carbohydrates For Hypoglycemia ) 15 - 30 gm PO UD PRN PRN Reason: Hypoglycemia Protocol Stop: 02/18/21 18:15 Last Admin: 01/19/21 18:44 Dose: 15 gm Documented by: Miscellaneous (Remove Lidoderm Patch) 1 ea N/A DAILY@2100 [facility] Stop: 02/18/21 20:59 Last Admin: 01/20/21 22:14 Dose: 1 ea Documented by: Miscellaneous Information (Pharmacy Glycemic Mgmt Consult) 1 ea N/A UD PRN; Protocol PRN Reason: Consult Stop: 02/18/21 18:33 Ondansetron HCl (Ondansetron Inj 2 Mg/Ml 2 Ml Vial) 4 mg IV Q4H PRN PRN Reason: Nausea And Vomiting Stop: 02/18/21 18:15 Oxycodone/Acetaminophen (Oxycodone/Acetaminophen 5mg/325mg Tab) 1 tab PO Q6H PRN PRN Reason: Pain Stop: 02/02/21 18:15 Polyethylene Glycol (Polyethylene (Miralax) 17 Gm Pack) 17 gm PO DAILY [facility] Stop: 02/18/21 18:15 Last Admin: 01/21/21 08:27 Dose: Not Given Documented by: (1) DM type 1 (diabetes mellitus, type 1) Diabetes mellitus complication status: without complication Qualified Code(s): E10.9 - Type 1 diabetes mellitus without complications (2) CKD (chronic kidney disease) Chronic kidney disease stage: unspecified stage Qualified Code(s): N18.9 - Chronic kidney disease, unspecified (3) Fall Encounter type: initial encounter Qualified Code(s): W19.XXXA - Unspecified fall, initial encounter
--- NOTE | 2021-01-21 13:49 | Pharmacy Report ---
Pharmacy Glycemic Short Note 2 - Date of Service January 21, 2021 - Glycemic Short BSG Results (Last 24 hours): 01/20/21 01/20/21 01/21/21 17:15 20:37 01:23 Glucose POC Glucose 145 H 230 H 155 H 01/21/21 01/21/21 01/21/21 06:05 06:24 06:54 Glucose 49 L* POC Glucose 60 L* 46 L* 01/21/21 01/21/21 07:20 12:04 Glucose POC Glucose 179 H 111 H OUTPATIENT ANTIDIABETIC REGIMEN: * Lantus 35 units; Novolog 3 units with meals * A1c 9.0% 12/27/20 ASSESSMENT: * Miki received 43 units of insulin yesterday (24 units of basal and 19 units of bolus) * Pt had an episode of asymptomatic hypoglycemia this morning which resolved after an amp of D50. I suspect this was due to full dose of basal insulin given last evening while NPO. I have reduced Lantus dose by 50%. * He will resume a diet for lunch and dinner today and then return to NPO status for right great toe amputation on 01/22. Based on fluctuating post prandial BSGs and previous admission data, I suspect pt requires more carb coverage and less correctional insulin. Background: * GA is admitted with a back injury/fall. He has type 1 diabetes. Patient was hypoglycemic in the ED and upon admission. Patient reports last lantus use was 01/18 AM and patient has not eaten anything today. * Outpatient regimen is very basal heavy (~80% basal), suspect this helps cover mealtime carbs. Pt reports to nurse frequently not checking BSGs. With past admission patient was requiring a lower lantus dose. Will not hold lantus as patient is a type I and will require some basal but will reduce dose empirically by 30-40% * Will initiate weight based stress of 2 novolog. Will monitor as needed for adjustments. PLAN FOR INPATIENT GLYCEMIC CONTROL: * Hold outpatient oral diabetes medications * Basal insulin - decrease * Lantus 10-12 units SQ qHS while NPO * Bolus insulin - tighten carb coverage * NovoLog per scale ACHS or Q6hrs while NPO * Goal Range: Low 110 mg/dL - High 140 mg/dL * Correction Factor: 30 mg/dL/unit * Nutritional / Prandial insulin per carb ratio of 1 unit per 7 grams CHO consumed
--- NOTE | 2021-01-21 15:17 | Anesthesiology Consultation ---
Date of Service January 21, 2021 Assessment & Plan Chart Review Chart Review: Acceptable Risk for Surgery Consults Requested none History Surgery Operation Date: 01/22/21 09:00 Proposed Procedures p great Amputation Toe - Goldy Reynolds DO Height/Weight Height: 5 ft 11 in Weight: 73 kg Allergies Allergy/AdvReac Type Severity Reaction Status Date / Time levofloxacin Allergy Unknown "nervous" Verified 01/18/21 08:01 shrimp AdvReac Unknown NAUSEA Verified 01/18/21 08:01 Medications Home Medications Medication Instructions Recorded Confirmed Last Taken amlodipine 5 mg tablet 5 mg PO QAM 10/19/18 01/19/21 07/15/20 aspirin 81 mg tablet,delayed 81 mg PO QAM 10/19/18 01/19/21 07/15/20 release (Aspirin Low Dose) insulin glargine 100 unit/mL (3 35 unit SUBCUT QAM 02/26/20 01/19/21 07/15/20 mL) subcutaneous pen (Lantus Solostar U-100 Insulin) atorvastatin 40 mg tablet 40 mg PO HS #30 tab 07/08/20 01/19/21 07/15/20 fexofenadine 60 mg-pseudoephedrine 1 tab PO BID #14 tab 07/08/20 01/19/21 07/15/20 ER 120 mg tablet,ext.release,12 hr (Merari-D 12 Hour) clopidogrel 75 mg tablet 75 mg PO QAM #30 tab 12/31/20 01/19/21 Unknown gabapentin 300 mg capsule 600 mg PO BID cap 01/17/21 01/19/21 Unknown losartan 25 mg tablet 25 mg PO QAM tab 01/17/21 01/19/21 Unknown insulin aspart U-100 100 unit/mL 3 unit SUBCUT TIDM 01/19/21 01/19/21 Unknown (3 mL) subcutaneous pen Active Medications Generic Name Dose Route Start Last Admin Trade Name Freq PRN Reason Stop Dose Admin Acetaminophen 650 mg 01/19/21 18:16 01/20/21 07:57 Acetaminophen 325 Mg Tab PO 02/18/21 18:15 650 mg Q4H PRN Administration Moderate Pain Amlodipine Besylate 5 mg 01/20/21 09:00 01/21/21 08:27 Amlodipine Besylate 5 Mg Tab PO 02/19/21 08:59 5 mg QAM [place] Administration Atorvastatin Calcium 40 mg 01/19/21 21:00 01/20/21 22:11 Atorvastatin 40 Mg Tab PO 02/18/21 20:59 40 mg HS [place] Administration Bisacodyl 5 mg 01/19/21 18:16 01/21/21 08:27 Bisacodyl 5 Mg Tabec PO 02/18/21 18:15 Not Given DAILY [place] Clopidogrel Bisulfate 75 mg 01/20/21 09:00 01/21/21 08:26 Clopidogrel Bisulfate 75 Mg Tab PO 02/19/21 08:59 75 mg QAM [place] Administration Dextrose 25 - 50 ml 01/19/21 18:16 01/21/21 06:59 Dextrose 50% 50 Ml Syringe IV 02/18/21 18:15 50 ml UD PRN Administration Hypoglycemia Protocol Protocol Gabapentin 600 mg 01/19/21 21:00 01/21/21 08:27 Gabapentin 300 Mg Cap PO 02/18/21 20:59 600 mg BID [place] Administration Glucose 15 - 30 gm 01/19/21 18:16 01/21/21 06:33 Glucose 40% Gel 15 Gm Tube PO 02/18/21 18:15 15 gm UD PRN Administration Hypoglycemia Protocol Protocol Heparin Sodium (Porcine) 5,000 units 01/19/21 21:00 01/21/21 08:27 Heparin Sod 5,000 Unit/0.5 Ml Vial SQ 02/18/21 20:59 Not Given Q12 [place] Insulin Aspart 0 units 01/21/21 13:45 01/21/21 14:26 Insulin Aspart 100 Units/Ml 3 Ml Pen SC 01/21/21 23:00 4 units ACHS [place] Administration Insulin Glargine 0 units 01/19/21 21:00 01/20/21 22:14 Insulin Glargine Solostar 100 Units/Ml 3 Ml Pen SC 02/18/21 20:59 24 units HS [place] Administration Protocol Lidocaine 1 patch 01/19/21 18:30 01/21/21 08:26 Lidocaine 5% 1 Patch TD 02/18/21 18:29 1 patch QAM [place] Administration Losartan Potassium 25 mg 01/20/21 09:00 01/21/21 08:26 Losartan Potassium 25 Mg Tab PO 02/19/21 08:59 25 mg QAM [place] Administration Miscellaneous 1 ea 01/20/21 00:00 01/21/21 14:25 Fexofenadine-Pseudoephedrine [Merari-D 12 Hour] 60-120 Mg Table~Order Awaiting Action N/A 02/19/21 00:00 Not Given QS [place] Miscellaneous 15 - 30 gm 01/19/21 18:16 01/19/21 18:44 Carbohydrates For Hypoglycemia PO 02/18/21 18:15 15 gm UD PRN Administration Hypoglycemia Protocol Miscellaneous 1 ea 01/19/21 21:00 01/20/21 22:14 Remove Lidoderm Patch N/A 02/18/21 20:59 1 ea DAILY@2100 [place] Administration Polyethylene Glycol 17 gm 01/19/21 18:16 01/21/21 08:27 Polyethylene (Miralax) 17 Gm Pack PO 02/18/21 18:15 Not Given DAILY [place] Past Medical History Medical History (Updated 01/21/21 @ 13:34 by Kennedi Mckeon DO) Acute hyperglycemia Acute thoracic back pain Ambulatory dysfunction CKD (chronic kidney disease) COVID-19 COVID-19 Diabetic neuropathy Difficult airway for intubation Glidescope 2012 Dizziness DM type 1 (diabetes mellitus, type 1) Fall Falls frequently History of heart block Patient presented to [facility] 03/2013 for elective L foot I&D. On induction with propofol in OR pt went into 3rd degree HB. Pt intubated and given 1 dose of Epi, which resolved HB but diffuse ST depression remained. Surgery aborted, pt to PACU, where ST segments returned to baseline and pt was extubated. Cardio consulted, echo WNL, no etiology discovered for HB, ST depression felt 2/2 strain from Epi or apnea. No further testing or intervention recommended. History of osteomyelitis Hyperlipidemia Low back pain Osteomyelitis of left foot history of Pulmonary nodule PVD (peripheral vascular disease) Vertigo history of--hypoglycemia Past Family History Family History Brother Diabetes Past Surgical History Surgical History H/O eye surgery both eyes, corrective lens implant History of colonoscopy 8 years ago S/P amputation of lesser toe "right second and third toe" Social History Smoking Status: Never smoker Hx Alcohol Use: Yes Alcohol type: hard liquor alcohol intake frequency: a few times a month Hx Substance Use: No substance use type: does not use Physical Exam Vital Signs Last Vital Signs Temp 36.7 C 01/21/21 15:12 Pulse 68 01/21/21 15:12 Resp 16 01/21/21 15:12 BP 109/73 01/21/21 15:12 Pulse Ox 96 01/21/21 15:12 Testing Laboratory Results 01/21/21 06:05 01/21/21 06:05 Urine Color Yellow 01/19/21 13:56 Urine Appearance Clear (Clear) 01/19/21 13:56 Urine pH 5.0 (4.5-7.5) 01/19/21 13:56 Ur Specific [place] 1.017 (1.000-1.030) 01/19/21 13:56 Urine Protein 1+ (Negative) H 01/19/21 13:56 Urine Glucose (UA) Negative (Negative) 01/19/21 13:56 Urine Ketones Negative (Negative) 01/19/21 13:56 Urine Nitrite Negative (Negative) 01/19/21 13:56 Ur Leukocyte Esterase Trace (Negative) H 01/19/21 13:56 Urine WBC (Auto) 0 /hpf (0-5) 01/19/21 13:56 Urine RBC (Auto) 0-4 /hpf (0-4) 01/19/21 13:56 U Hyaline Cast (Auto) 1-5 /lpf (0-5) 01/19/21 13:56 U Epithel Cells (Auto) 0-5 /lpf (0-5) 01/19/21 13:56 Urine Bacteria (Auto) Negative (Negative) 01/19/21 13:56 01/21/21 01/21/21 01/21/21 12:04 07:20 06:54 POC Glucose 111 H 179 H 46 L* 01/21/21 06:24 POC Glucose 60 L*
[2021-01-21] MEDS: ATORVASTATIN 40 MG TAB PO SCH (21:53)
[2021-01-21] MEDS: INSULIN GLARGINE SOLOSTAR 100 UNITS/ML 3 ML PEN SC SCH (21:55)
[2021-01-22 05:52] LABS: Hematocrit (blood only) 37.5 % (42-52); Mean Corpuscular Hemoglobin 30.2 pg (25-34); Mean Corpuscular Hgb Conc 34.7 g/dL (32-36); Mean Corpuscular Volume 87.2 fL (80-100); Mean Platelet Volume 10.7 fL (7.4-10.4); Platelet Count 195 K/uL (130-400); RDW Coefficient of Variation 12.8 % (11.5-14.5); RDW Standard Deviation 41.1 fL (36.4-46.3); White Blood Count 5.51 K/uL (4.8-10.8)
[2021-01-22 06:32] LABS: Albumin Level 2.9 gm/dl (3.4-5.0); BUN Creatinine Ratio 27.9 (10-20); Calcium 8.8 mg/dl (8.5-10.1); Creatinine Clr Calc Pharmacy 48.5 ml/min; Est GFR (Non-African American) 44.8 ml/min; Potassium 4.6 mmol/L (3.5-5.1)
[2021-01-22] MEDS: INSULIN ASPART 100 UNITS/ML 3 ML PEN SC SCH ×4 (06:32→21:41)
[2021-01-22 06:35] LABS: Albumin Globulin Ratio 0.9 (0.9-2); Bilirubin,Total 0.7 mg/dl (0.2-1); Globulin 3.4 gm/dl (2.5-4.0); Total Protein 6.3 gm/dl (6.4-8.2)
[2021-01-22] MEDS: amLODIPine BESYLATE 5 MG TAB PO SCH (07:34)
[2021-01-22] MEDS: CLOPIDOGREL BISULFATE 75 MG TAB PO SCH (07:35)
[2021-01-22] MEDS: GABAPENTIN 300 MG CAP PO SCH ×2 (07:35→21:39)
[2021-01-22] MEDS: LIDOCAINE 5% 1 PATCH TD SCH (07:36)
[2021-01-22] MEDS: LOSARTAN POTASSIUM 25 MG TAB PO SCH (07:37)
[2021-01-22] MEDS: bisacodyL 5 MG TABEC PO SCH (07:38)
[2021-01-22] MEDS: HEPARIN SOD 5,000 UNIT/0.5 ML VIAL SQ SCH (07:38)
[2021-01-22] MEDS: POLYETHYLENE (MIRALAX) 17 GM PACK PO SCH (07:39)
--- NOTE | 2021-01-22 10:46 | Hospitalist Progress Note ---
Date of Service January 22, 2021 Assessment & Plan (1) Back pain: Plan: Likely related to MSK pain from recent falls at home. Ortho spine evaluated him and recommended PT/OT which is ordered and pain control at this time. He is doing well on a lidocaine patch. Will cont to try to avoid narcotics in setting of recent stroke and high fall risk. Tylenol PRN (2) Fall: Plan: multifactorial including recent hospitalization for stroke and ambulatory dysfunction with weakness. Cont PT/OT and likely transition to rehab or SNF. (3) Diabetic ulcer of right great toe: Plan: -debrided recently on 01/17/2021 -MR foot not performed with ZIO monitor in place. -Follows with Ortho with Dr. Reynolds who is planning amputation of the great toe today. -Continue offloading footwear-defer to ortho to order post op (4) History of CVA (cerebrovascular accident): Plan: Recently hospitalized for CVA in Nov 2020 and has been on DAPT since that time. ASA stopped 01/21 and cont Plavix for secondary prevention. Cont Lipitor. (5) Elevated transaminase level: Plan: New LFT elevation this admission. No recent LFTs on outpatient record, however, he was here in Jul 2020 and was on atorvastatin at that time, so less likely statin use is a cause. RUQ pending. (6) DM type 1 (diabetes mellitus, type 1): Plan: per glycemic pharmacist. Inpatient glucose is at goal. Cont basal bolus insulin. (7) Hyperlipidemia: Plan: -Continue statin therapy post stroke. (8) PVD (peripheral vascular disease): Plan: -Chronic, stable, cont current medical therapy. (9) HTN (hypertension): Plan: -Continue amlodipine 5 mg daily, losartan 25 mg daily (10) Constipation: Plan: Documented BM on 01/19 in the evening. Cont bowel regimen and hold for any loose stools. (11) CKD (chronic kidney disease): Plan: Around his baseline is about 1.6-1.8, may continue medications as above. Renally adjust medications as needed. Avoid nephrotoxic drugs such as NSAIDs. (12) Ambulatory dysfunction: Plan: PT/OT (13) DVT prophylaxis: Plan: heparin DNR Dispo-likely to rehab as a transition to home. Kennedi Mckeon DO [facility] Hospitalist Admission and Anticipated Discharge Date Admission Date: January 20, 2021 Subjective 65 yo M with acute lower back pain recent stroke one month ago, reports back pain doing well on the lidocaine patch, some increased pain when sitting up in the chair where he currently is currently NPO for great toe amputation this morning by ortho some pain in the right toe wound culture was negative. MRI not performed because of the patient's ZIO patch. Review of Systems Review of Systems: All systems were reviewed and negative except as indicated in HPI above. Physical Exam Physical Exam: CONSTITUTIONAL: WNWD, vitals as above, NAD EYES: normal conjunctivae, no scleral icterus ENT: external ear and nose normal, oropharynx clear RESPIRATORY: clear to auscultation bilaterally, no crackles, rales or wheezes, normal respiratory effort CARDIOVASCULAR: regular rate and rhythm, S1 and 2 heard without murmurs, gallops or rubs, no JVD, no peripheral edema GASTROINTESTINAL: soft, nontender, nondistended MUSCULOSKELETAL: strength 5/5 throughout, head is normocephalic and atraumatic, neck supple, normal palpation of chest wall without tenderness SKIN: warm and dry, lidocaine patch on back NEUROLOGIC: No facial palsy, CN 2-12 grossly intact, no sensory deficit, normal cognition, normal speech, no tremor PSYCHIATRIC: alert cooperative and oriented to person, place and time. Results & Data Results & Data ([facility]) Vital Signs (Past 12 Hours) Vital Signs Temp Pulse Resp BP Pulse Ox 01/22/21 07:30 36.6 C 67 18 141/81 H 96 Laboratory Results Short CBC 01/22/21 Range/Units 05:36 WBC 5.51 (4.8-10.8) K/uL Hgb 13.0 L (14.0-18.0) g/dL Hct 37.5 L (42-52) % Plt Count 195 (130-400) K/uL BMP 01/22/21 05:36 Sodium 137 Potassium 4.6 Chloride 107 Carbon Dioxide 27 BUN 45 H Creatinine 1.61 H Glucose 96 Calcium 8.8 Liver Function 01/22/21 Range/Units 05:36 Total Bilirubin 0.7 (0.2-1) mg/dl AST 50 H (15-37) U/L ALT 96 H (12-78) U/L Alkaline Phosphatase 115 (45-117) U/L Albumin 2.9 L (3.4-5.0) gm/dl Medications Administered Current Inpatient Medications Acetaminophen (Acetaminophen 325 Mg Tab) 650 mg PO Q4H PRN PRN Reason: Moderate Pain Stop: 02/18/21 18:15 Last Admin: 01/20/21 07:57 Dose: 650 mg Documented by: Amlodipine Besylate (Amlodipine Besylate 5 Mg Tab) 5 mg PO QAM [facility] Stop: 02/19/21 08:59 Last Admin: 01/22/21 07:34 Dose: 5 mg Documented by: Atorvastatin Calcium (Atorvastatin 40 Mg Tab) 40 mg PO HS [facility] Stop: 02/18/21 20:59 Last Admin: 01/21/21 21:53 Dose: 40 mg Documented by: Bisacodyl (Bisacodyl 5 Mg Tabec) 5 mg PO DAILY [place] Stop: 02/18/21 18:15 Last Admin: 01/22/21 07:38 Dose: 5 mg Documented by: Clopidogrel Bisulfate (Clopidogrel Bisulfate 75 Mg Tab) 75 mg PO QAM [facility] Stop: 02/19/21 08:59 Last Admin: 01/22/21 07:35 Dose: 75 mg Documented by: Dextrose (Dextrose 50% 50 Ml Syringe) 25 - 50 ml IV UD PRN; Protocol PRN Reason: Hypoglycemia Protocol Stop: 02/18/21 18:15 Last Admin: 01/21/21 06:59 Dose: 50 ml Documented by: Gabapentin (Gabapentin 300 Mg Cap) 600 mg PO BID [place] Stop: 02/18/21 20:59 Last Admin: 01/22/21 07:35 Dose: 600 mg Documented by: Glucagon (Glucagon For Inj 1 Mg Vial) 1 mg SQ UD PRN; Protocol PRN Reason: Hypoglycemia Protocol Stop: 02/18/21 18:15 Glucose (Glucose 10 Tabs/Tube) 4 - 8 tabs PO UD PRN; Protocol PRN Reason: Hypoglycemia Protocol Stop: 02/18/21 18:15 Glucose (Glucose 40% Gel 15 Gm Tube) 15 - 30 gm PO UD PRN; Protocol PRN Reason: Hypoglycemia Protocol Stop: 02/18/21 18:15 Last Admin: 01/21/21 06:33 Dose: 15 gm Documented by: Heparin Sodium (Porcine) (Heparin Sod 5,000 Unit/0.5 Ml Vial) 5,000 units SQ Q12 [place] Stop: 02/18/21 20:59 Last Admin: 01/22/21 07:38 Dose: Not Given Documented by: Insulin Aspart (Insulin Aspart 100 Units/Ml 3 Ml Pen) 0 units SC Q6 [facility] Stop: 02/21/21 00:00 Last Admin: 01/22/21 06:32 Dose: Not Given Documented by: Insulin Glargine (Insulin Glargine Solostar 100 Units/Ml 3 Ml Pen) 0 units SC HS [facility]; Protocol Stop: 02/18/21 20:59 Last Admin: 01/21/21 21:55 Dose: 12 units Documented by: Lidocaine (Lidocaine 5% 1 Patch) 1 patch TD [facility] Stop: 02/18/21 18:29 Last Admin: 01/22/21 07:36 Dose: 1 patch Documented by: Losartan Potassium (Losartan Potassium 25 Mg Tab) 25 mg PO QAM [facility] Stop: 02/19/21 08:59 Last Admin: 01/22/21 07:37 Dose: 25 mg Documented by: Miscellaneous (Fexofenadine-Pseudoephedrine [Merari-D 12 Hour] 60-120 Mg Table~Order Awaiting Action) 1 ea N/A QS [facility] Stop: 02/19/21 00:00 Last Admin: 01/22/21 08:54 Dose: Not Given Documented by: Miscellaneous (Carbohydrates For Hypoglycemia ) 15 - 30 gm PO UD PRN PRN Reason: Hypoglycemia Protocol Stop: 02/18/21 18:15 Last Admin: 01/19/21 18:44 Dose: 15 gm Documented by: Miscellaneous (Remove Lidoderm Patch) 1 ea N/A DAILY@2100 [facility] Stop: 02/18/21 20:59 Last Admin: 01/21/21 21:56 Dose: 1 ea Documented by: Miscellaneous Information (Pharmacy Glycemic Mgmt Consult) 1 ea N/A UD PRN; Protocol PRN Reason: Consult Stop: 02/18/21 18:33 Ondansetron HCl (Ondansetron Inj 2 Mg/Ml 2 Ml Vial) 4 mg IV Q4H PRN PRN Reason: Nausea And Vomiting Stop: 02/18/21 18:15 Oxycodone/Acetaminophen (Oxycodone/Acetaminophen 5mg/325mg Tab) 1 tab PO Q6H PRN PRN Reason: Pain Stop: 02/02/21 18:15 Polyethylene Glycol (Polyethylene (Miralax) 17 Gm Pack) 17 gm PO DAILY [facility] Stop: 02/18/21 18:15 Last Admin: 01/22/21 07:39 Dose: Not Given Documented by: (1) DM type 1 (diabetes mellitus, type 1) Diabetes mellitus complication status: without complication Qualified Code(s): E10.9 - Type 1 diabetes mellitus without complications (2) CKD (chronic kidney disease) Chronic kidney disease stage: unspecified stage Qualified Code(s): N18.9 - Chronic kidney disease, unspecified (3) Fall Encounter type: initial encounter Qualified Code(s): W19.XXXA - Unspecified fall, initial encounter
[2021-01-22] MEDS ORDERED: fentaNYL citrate 100 MCG/2 ML VIAL ONE (10:51)
[2021-01-22] MEDS ORDERED: PROPOFOL IV EMULSION 10 MG/ML 20 ML VIAL IV ONE (10:51)
[2021-01-22] MEDS ORDERED: LIDOCAINE 2% 2 ML VIAL/AMP(20MG/ML) INFIL ONE (10:51)
[2021-01-22] MEDS ORDERED: MIDAZOLAM HCL 1 MG/ML 2ML VIAL ONE (10:51)
--- NOTE | 2021-01-22 10:52 | History & Physical Bridge Note ---
Date of Service January 22, 2021 History & Physical Bridge Note I have examined the patient, reviewed the History & Physical and in the interval since the performance of the History & Physical I have noted the following changes of clinical significance:Will require right great toe amputation today. NPO.
[2021-01-22] MEDS ORDERED: LIDOCAINE 2% LOCAL 50 ML VIAL ONE (11:06)
--- NOTE | 2021-01-22 11:14 | Anesthesiology Consultation ---
Date of Service January 22, 2021 Assessment & Plan (1) Encounter for pre-operative examination: Chart Review Chart Review: Acceptable Risk for Surgery and Patient NOT seen in Pre Admission Testing Consults Requested none ASA ASA3 Proposed Anesthesia Anesthesia Type: [facility] Laterality: Right Site: Ankle Risk / Benefits Reviewed With: PT / POA / Parent / Guardian, Accepts Plan and Informed Consent Obtained History Surgery Operation Date: 01/22/21 09:00 Proposed Procedures p great Amputation Toe - Goldy Reynolds DO Height/Weight Height: 5 ft 11 in Weight: 73 kg Allergies Allergy/AdvReac Type Severity Reaction Status Date / Time levofloxacin Allergy Unknown "nervous" Verified 01/18/21 08:01 shrimp AdvReac Unknown NAUSEA Verified 01/18/21 08:01 Medications Home Medications Medication Instructions Recorded Confirmed Last Taken amlodipine 5 mg tablet 5 mg PO QAM 10/19/18 01/19/21 07/15/20 aspirin 81 mg tablet,delayed 81 mg PO QAM 10/19/18 01/19/21 07/15/20 release (Aspirin Low Dose) insulin glargine 100 unit/mL (3 35 unit SUBCUT QAM 02/26/20 01/19/21 07/15/20 mL) subcutaneous pen (Lantus Solostar U-100 Insulin) atorvastatin 40 mg tablet 40 mg PO HS #30 tab 07/08/20 01/19/21 07/15/20 fexofenadine 60 mg-pseudoephedrine 1 tab PO BID #14 tab 07/08/20 01/19/21 07/15/20 ER 120 mg tablet,ext.release,12 hr (Merari-D 12 Hour) clopidogrel 75 mg tablet 75 mg PO QAM #30 tab 12/31/20 01/19/21 Unknown gabapentin 300 mg capsule 600 mg PO BID cap 01/17/21 01/19/21 Unknown losartan 25 mg tablet 25 mg PO QAM tab 01/17/21 01/19/21 Unknown insulin aspart U-100 100 unit/mL 3 unit SUBCUT TIDM 01/19/21 01/19/21 Unknown (3 mL) subcutaneous pen Active Medications Generic Name Dose Route Start Last Admin Trade Name Freq PRN Reason Stop Dose Admin Acetaminophen 650 mg 01/19/21 18:16 01/20/21 07:57 Acetaminophen 325 Mg Tab PO 02/18/21 18:15 650 mg Q4H PRN Administration Moderate Pain Amlodipine Besylate 5 mg 01/20/21 09:00 01/22/21 07:34 Amlodipine Besylate 5 Mg Tab PO 02/19/21 08:59 5 mg QAM [place] Administration Atorvastatin Calcium 40 mg 01/19/21 21:00 01/21/21 21:53 Atorvastatin 40 Mg Tab PO 02/18/21 20:59 40 mg HS [place] Administration Bisacodyl 5 mg 01/19/21 18:16 01/22/21 07:38 Bisacodyl 5 Mg Tabec PO 02/18/21 18:15 5 mg DAILY [place] Administration Clopidogrel Bisulfate 75 mg 01/20/21 09:00 01/22/21 07:35 Clopidogrel Bisulfate 75 Mg Tab PO 02/19/21 08:59 75 mg QAM [place] Administration Dextrose 25 - 50 ml 01/19/21 18:16 01/21/21 06:59 Dextrose 50% 50 Ml Syringe IV 02/18/21 18:15 50 ml UD PRN Administration Hypoglycemia Protocol Protocol Gabapentin 600 mg 01/19/21 21:00 01/22/21 07:35 Gabapentin 300 Mg Cap PO 02/18/21 20:59 600 mg BID [place] Administration Glucose 15 - 30 gm 01/19/21 18:16 01/21/21 06:33 Glucose 40% Gel 15 Gm Tube PO 02/18/21 18:15 15 gm UD PRN Administration Hypoglycemia Protocol Protocol Heparin Sodium (Porcine) 5,000 units 01/19/21 21:00 01/22/21 07:38 Heparin Sod 5,000 Unit/0.5 Ml Vial SQ 02/18/21 20:59 Not Given Q12 [place] Insulin Aspart 0 units 01/22/21 00:00 01/22/21 06:32 Insulin Aspart 100 Units/Ml 3 Ml Pen SC 02/21/21 00:00 Not Given Q6 [place] Insulin Glargine 0 units 01/19/21 21:00 01/21/21 21:55 Insulin Glargine Solostar 100 Units/Ml 3 Ml Pen SC 02/18/21 20:59 12 units HS [place] Administration Protocol Lidocaine 1 patch 01/19/21 18:30 01/22/21 07:36 Lidocaine 5% 1 Patch TD 02/18/21 18:29 1 patch QAM [place] Administration Losartan Potassium 25 mg 01/20/21 09:00 01/22/21 07:37 Losartan Potassium 25 Mg Tab PO 02/19/21 08:59 25 mg QAM [place] Administration Miscellaneous 1 ea 01/20/21 00:00 01/22/21 08:54 Fexofenadine-Pseudoephedrine [Merari-D 12 Hour] 60-120 Mg Table~Order Awaiting Action N/A 02/19/21 00:00 Not Given QS [place] Miscellaneous 15 - 30 gm 01/19/21 18:16 01/19/21 18:44 Carbohydrates For Hypoglycemia PO 02/18/21 18:15 15 gm UD PRN Administration Hypoglycemia Protocol Miscellaneous 1 ea 01/19/21 21:00 01/21/21 21:56 Remove Lidoderm Patch N/A 02/18/21 20:59 1 ea DAILY@2100 [place] Administration Polyethylene Glycol 17 gm 01/19/21 18:16 01/22/21 07:39 Polyethylene (Miralax) 17 Gm Pack PO 02/18/21 18:15 Not Given DAILY [place] NPO Date Last Intake of Fluids: 01/22/21 Time Last Intake of Fluids: 08:00 Last Intake of Fluids Comment: sip water Date Last Intake of Solids: 01/21/21 Time Last Intake of Solids: 18:00 Past Medical History Medical History Acute hyperglycemia Acute thoracic back pain Ambulatory dysfunction CKD (chronic kidney disease) COVID-19 COVID-19 Diabetic neuropathy Difficult airway for intubation Glidescope 2012 Dizziness DM type 1 (diabetes mellitus, type 1) Fall Falls frequently History of heart block Patient presented to [facility] 03/2013 for elective L foot I&D. On induction with propofol in OR pt went into 3rd degree HB. Pt intubated and given 1 dose of E pi, which resolved HB but diffuse ST depression remained. Surgery aborted, pt to PACU, where ST segments returned to baseline and pt was extubated. Cardio consulted, echo WNL, no etiology discovered for HB, ST depression felt 2/2 strain from Epi or apnea. No further testing or intervention recommended. History of osteomyelitis Hyperlipidemia Low back pain Osteomyelitis of left foot history of Pulmonary nodule PVD (peripheral vascular disease) Vertigo history of--hypoglycemia Exercise / Class Metabolic Activity III < 4 Walking/Shop/Light housework Past Family History Family History Brother Diabetes Past Surgical History Surgical History H/O eye surgery both eyes, corrective lens implant History of colonoscopy 8 years ago S/P amputation of lesser toe "right second and third toe" Past Anesthesia History No Hx of Anesthesia Complications and No Family Hx of Anesthesia Complications History of PONV No Hx of PONV and No Hx of Motion Sickness Social History Smoking Status: Never smoker Hx Alcohol Use: Yes Alcohol type: hard liquor alcohol intake frequency: a few times a month Hx Substance Use: No substance use type: does not use Review of Systems no chest pain or sob, no cough or fever Physical Exam Vital Signs Last Vital Signs Temp 36.6 C 01/22/21 07:30 Pulse 67 01/22/21 07:30 Resp 18 01/22/21 07:30 BP 141/81 H 01/22/21 07:30 Pulse Ox 96 01/22/21 07:30 ENMT Mouth: no TMJ abnormality Thyromental Distance: > or= 3.5 Finger Breadths Mallampati Class: II Neck normal visual inspection and + facial hair Respiratory normal respiratory effort Auscultation: lungs clear to auscultation bilaterally Cardiovascular Rate/Rhythm: regular rate and regular rhythm Musculoskeletal Spine: normal cervical ROM Skin + lesion (right big toe bandaged) Neurologic moves all extremities Psychiatric Orientation: alert and oriented x 3 Testing Laboratory Results 01/22/21 05:36 01/22/21 05:36 Urine Color Yellow 01/19/21 13:56 Urine Appearance Clear (Clear) 01/19/21 13:56 Urine pH 5.0 (4.5-7.5) 01/19/21 13:56 Ur Specific [place] 1.017 (1.000-1.030) 01/19/21 13:56 Urine Protein 1+ (Negative) H 01/19/21 13:56 Urine Glucose (UA) Negative (Negative) 01/19/21 13:56 Urine Ketones Negative (Negative) 01/19/21 13:56 Urine Nitrite Negative (Negative) 01/19/21 13:56 Ur Leukocyte Esterase Trace (Negative) H 01/19/21 13:56 Urine WBC (Auto) 0 /hpf (0-5) 01/19/21 13:56 Urine RBC (Auto) 0-4 /hpf (0-4) 01/19/21 13:56 U Hyaline Cast (Auto) 1-5 /lpf (0-5) 01/19/21 13:56 U Epithel Cells (Auto) 0-5 /lpf (0-5) 01/19/21 13:56 Urine Bacteria (Auto) Negative (Negative) 01/19/21 13:56 01/22/21 06:06 POC Glucose 85 Electrocardiogram Date: 01/19/21 Findings: + NSR @ (67) Chest X-Ray Date: 01/19/21 SINGLE VIEW CHEST CLINICAL HISTORY: Generalized weakness. FINDINGS: An AP, portable, upright chest radiograph is compared to study dated 12/26/2020 and correlated with chest CT dated 02/17/2020. An electronic device partially obscures the left mid chest. The heart is top normal for projection noting atherosclerotic calcification of the thoracic aorta. The lungs and pleural spaces are clear. No pneumothorax is seen. There are chronic bilateral rib fractures. IMPRESSION: No active disease in the chest. ACT 112: Negative or not required by law. Electronically signed by: Jonathan Merrill M.D. 01/19/2021 3:14 PM Dictated: [id number]: 01/19/21 151 Echocardiogram Date: 12/29/20 EF: 60-65 LV Function: normal Other Findings: + diastolic dysfunction (grade 1)
[2021-01-22] MEDS ORDERED: PHENYLEPHRINE 100MCG/ML 5ML SYR IV PRN (12:00)
[2021-01-22] MEDS ORDERED: ATROPINE SULFATE 0.1 MG/ML 10ML SYR IV PRN (12:00)
[2021-01-22] MEDS ORDERED: LABETALOL HCL IV 5 MG/ML 20ML IV PRN (12:00)
[2021-01-22] MEDS ORDERED: ePHEDrine sulfate 50 MG/ML AMP IV PRN (12:00)
[2021-01-22] MEDS ORDERED: ONDANSETRON INJ 2 MG/ML 2 ML VIAL IV PRN (12:00)
[2021-01-22] MEDS ORDERED: fentaNYL citrate 100 MCG/2 ML VIAL IV PRN (12:00)
--- NOTE | 2021-01-22 12:47 | Anesthesiology Progress Note ---
Date of Service January 22, 2021 Anesthesia Post Procedure Vital Signs Vital Signs: Temp Pulse Pulse Pulse Resp BP Pulse Ox 01/22/21 12:35 36.1 C L 62 16 114/54 L 98 01/22/21 12:28 36.0 C L 62 16 124/69 98 01/22/21 07:30 36.6 C 67 18 141/81 H 96 01/21/21 22:03 37.0 C 66 15 115/73 95 01/21/21 15:12 36.7 C 68 16 109/73 96 Pain Intensity Back: Pain Intensity: 2 Transfer of Care Handoff Completed per policy Notes Mental Status: alert / awake / arousable Patient Amnestic to Procedure: Yes Nausea / Vomiting: adequately controlled Pain: adequately controlled Airway Patency, RR, SpO2: stable & adequate BP & HR: stable & adequate Hydration State: stable & adequate Anesthetic Complications: no major complications apparent and Pt Satisfied with anesthetic care Notes: The patient is awake and comfortable. His vital signs are stable.
[2021-01-22] MEDS ORDERED: bisacodyL 10 MG SUPP PR PRN (12:52)
[2021-01-22] MEDS ORDERED: HYDROmorphone INJ 0.5 MG/0.5 ML SYR IV PRN (12:52)
[2021-01-22] MEDS ORDERED: MAGNESIUM HYDROXIDE SUSP 30 ML UDC PO PRN (12:52)
[2021-01-22] MEDS ORDERED: NALOXONE HCL 0.4 MG/1 ML VIAL/CARP IV PRN (12:52)
--- NOTE | 2021-01-22 12:54 | Post Operative Brief Note ---
Immediate Post Op Note v1 Date of Surgery January 22, 2021 Pre & Post Diagnosis Operation Date: 01/22/21 09:00 Pre-Op Diagnosis: Diabetic ulcer (1 cm) of right great toe, osteomyelitis proximal phalanx right great toe Post-Op Diagnosis: Diabetic ulcer (1 cm) of right great toe, osteomyelitis proximal phalanx right great toe I identified the patient and participated in the time-out.: Yes Procedure Operation Date: 01/22/21 09:00 Actual Procedures p 1. Amputation Right Great Toe 2. Irrigation and Debridement (1 cm) diabetic Ulcer great toe (Right) - Goldy Reynolds DO Surgeon Goldy Reynolds DO Cleaner Signs None Estimated Blood Loss 1 Findings Consistent with Post-Op Diagnosis Specimens Aerobic, anaerobic, Gram stain right great toe deep bone Bone and tissue right great toe amputation Anesthesia Type MAC Regional Complications none Disposition Accompanied Patient To Recovery: Yes
[2021-01-22] MEDS ORDERED: Nursing to Pharmacy Communication SCH (13:00)
--- NOTE | 2021-01-22 13:19 | Operative Report (OR) ---
DATE OF PROCEDURE: 01/22/2021 PREOPERATIVE DIAGNOSES: 1. Osteomyelitis, right great toe proximal phalanx. 2. A 1 cm plantar diabetic ulceration, right great toe. POSTOPERATIVE DIAGNOSES: 1. Osteomyelitis, right great toe proximal phalanx. 2. A 1 cm plantar diabetic ulceration, right great toe. PROCEDURE: 1. Right great toe amputation. 2. Irrigation and debridement of 1 cm plantar diabetic ulceration, right great toe. SURGEON: Alessio Reynolds DO. DEPORTATION OFFICER: None. ANESTHESIA: MAC, regional. SPECIMENS: 1. Aerobic, anaerobic, Gram stain -- deep bone, right great toe. 2. Bone and tissue -- right great toe amputation. DRAINS: None. COMPLICATIONS: None. BLOOD LOSS: 1 mL. 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 He has been attempting conservative management; however, he has failed. He has developed osteom yelitis in the distal aspect of the proximal phalanx and was then scheduled for surgery as indicated. All potential risks, benefits, complications, alternatives, rehab potential for incomplete relief of symptoms, need for further surgery, DVT, PE, , persistent pain, swelling, scarring, weakness, ne urovascular injury, wound complications, need for further surgery or amputation were discussed with t mic patient. The patient decided to proceed with the procedure as indicated. DESCRIPTION OF PROCEDURE: The patient was taken to the operative suite and placed supine on the oper ating table. After review of consent and identification of proper site, the patient was sedated. Af ter sterile prep, the anesthesiologist then performed an ankle block. Next, the right lower extremit y was then sterilely prepped and draped in the usual sterile fashion, elevated and partially exsangui nated in the mid foot proximally with a 4-inch Esmarch bandage and an Esmarch tourniquet applied over sterile surgical towel at the level of the ankle. Next, a 15 blade scalpel was then used to carefully debride the 1 cm diameter diabetic ulcer on the p lantar aspect of the right great toe, taking care to freshen the edges and avoid neurovascular struct ures. Next, a deep culture was obtained to the level of the bone for aerobic, anaerobic, Gram stain; this was send off as specimen, and then after appropriate skin lines and flap lines were marked with a skin marker, amputation proceeded attempting to maintain as much tissue length as possible for a robust plantar flap. Next, midlateral line incisions were made to avoid the neurovascular bundles to then find the joint c apsule for the great toe at the proximal aspect of the proximal phalanx. Joint capsule was then inci sed circumferentially using a towel clip to grasp the bone. The distal aspect of the bone was comple tely necrotic consistent with osteomyelitis. Next, the connective tissue and medial and lateral dionte ateral ligaments were then sacrificed with a 15-blade scalpel. Then, the bone was essentially amira d out of the soft tissue and this was passed off as specimen. Next, the dorsal and plantar flaps were then fashioned in a way such that it would allow for the most robust plantar flap tissue despite the ulceration present. Next, after the flaps were adequately sh aped and contoured to make a tension-free closure, the site was then copiously irrigated with a liter of sterile saline until clear. The flexor and extensor tendons were both placed on stretch using a hemostat and then sectioned and allowed to retract within the soft tissue. Next, full thickness closure was then performed of the flap with interrupted 3-0 nylon sutures using a combination of horizontal and vertical mattress sutures and simple sutures. Next, a sterile compre ssive dressing was applied consisting of Xeroform gauze, sterile 4 x 4s, ABD pads, cast padding, and an Kolton wrap. The tourniquet was released. The patient was awakened and then taken to recovery in [facility] condition. Job ID: [id number]
[2021-01-22] MEDS: SODIUM CHLORIDE 0.9% 1000ML 1,000 ML IV SCH ×2 (13:29→23:22)
--- NOTE | 2021-01-22 13:47 | Ultrasound Report ---
US liver CLINICAL HISTORY: 65 years-old Male presenting with elevated LFTs. TECHNIQUE: Real-time grayscale ultrasound imaging of the upper abdomen was performed for a focused ev aluation at the site of clinical concern. COMPARISON: None. FINDINGS: Visualized portion of the pancreas shows no evidence of focal lesions. Overall pancreas is poorly vis ualized due to patient body habitus. Liver is normal in size without evidence of focal lesions or intrahepatic biliary dilatation. Gallbladder is fluid-filled without evidence of cholelithiasis or pericholecystic edema. Common bile ducts measuring 0.5 cm in diameter. Partially visualized right kidney shows no evidence of hydronephrosis. IMPRESSION: 1. Nonenlarged liver with normal-appearing parenchyma and no evidence of focal lesions or intrahepat ic biliary dilatation. 2. No sonographic evidence of cholelithiasis or cholecystitis. ACT 112: Negative or not required by law. Electronically signed by: Edwige Lopez DO 01/22/2021 1:46 PM
--- NOTE | 2021-01-22 14:02 | Pharmacy Report ---
Pharmacy Glycemic Short Note 2 - Date of Service January 22, 2021 - Glycemic Short BSG Results (Last 24 hours): 01/21/21 01/21/21 01/22/21 16:55 20:43 05:36 Glucose 96 POC Glucose 134 H 146 H 01/22/21 01/22/21 01/22/21 06:06 11:21 12:33 Glucose POC Glucose 85 99 109 H OUTPATIENT ANTIDIABETIC REGIMEN: * Lantus 35 units; Novolog 3 units with meals * A1c 9.0% 12/27/20 ASSESSMENT: 01/22/21: * Miki received 24 units of insulin yesterday (12 units of basal and 12 units of bolus). He was NPO for half of the day. He is s/p R great toe amputation. * His fasting BSG was 85 mg/dL this AM, which is slightly lower than we would prefer while hospitalized. Lantus was reduced last evening for NPO status. Since diet has been resumed, I will increase basal insulin scale but continue will an overall reduced dosage. * No changes to novolog parameters 01/21/21: * Miki received 43 units of insulin yesterday (24 units of basal and 19 units of bolus) * Pt had an episode of asymptomatic hypoglycemia this morning which resolved after an amp of D50. I suspect this was due to full dose of basal insulin given last evening while NPO. I have reduced Lantus dose by 50%. * He will resume a diet for lunch and dinner today and then return to NPO status for right great toe amputation on 01/22. Based on fluctuating post prandial BSGs and previous admission data, I suspect pt requires more carb coverage and less correctional insulin. Background: * GA is admitted with a back injury/fall. He has type 1 diabetes. Patient was hypoglycemic in the ED and upon admission. Patient reports last lantus use was 01/18 AM and patient has not eaten anything today. * Outpatient regimen is very basal heavy (~80% basal), suspect this helps cover mealtime carbs. Pt reports to nurse frequently not checking BSGs. With past admission patient was requiring a lower lantus dose. Will not hold lantus as patient is a type I and will require some basal but will reduce dose empirically by 30-40% * Will initiate weight based stress of 2 novolog. Will monitor as needed for adjustments. PLAN FOR INPATIENT GLYCEMIC CONTROL: * Hold outpatient oral diabetes medications * Basal insulin - increase * Lantus 14-18 units SQ qHS (18 units for BSG 160 or more) * Bolus insulin * NovoLog per scale ACHS or Q6hrs while NPO * Goal Range: Low 110 mg/dL - High 140 mg/dL * Correction Factor: 30 mg/dL/unit * Nutritional / Prandial insulin per carb ratio of 1 unit per 7 grams CHO consumed
[2021-01-22] MEDS: ceFAZolin 1000MG 1,000 MG/7.5 ML SYR IV SCH (21:38)
[2021-01-22] MEDS: DOCUSATE SODIUM 100 MG CAP PO SCH ×2 (21:39→21:45)
[2021-01-22] MEDS: ATORVASTATIN 40 MG TAB PO SCH (21:39)
[2021-01-22] MEDS: INSULIN GLARGINE SOLOSTAR 100 UNITS/ML 3 ML PEN SC SCH (21:42)
[2021-01-23] MEDS: ceFAZolin 1000MG 1,000 MG/7.5 ML SYR IV SCH ×3 (03:20→21:08)
[2021-01-23 05:28] LABS: Hematocrit (blood only) 37.1 % (42-52); Hemoglobin 12.6 g/dL (14.0-18.0); Mean Corpuscular Hemoglobin 30.2 pg (25-34); Mean Platelet Volume 10.9 fL (7.4-10.4); Platelet Count 212 K/uL (130-400); RDW Coefficient of Variation 12.8 % (11.5-14.5); RDW Standard Deviation 41.4 fL (36.4-46.3); Red Blood Count 4.17 M/uL (4.7-6.1)
[2021-01-23 06:06] LABS: Albumin Level 2.7 gm/dl (3.4-5.0); Calcium 8.5 mg/dl (8.5-10.1); Creatinine Clr Calc Pharmacy 56.6 ml/min; Est GFR (African American) 62.6 ml/min; Potassium 4.6 mmol/L (3.5-5.1)
[2021-01-23 06:09] LABS: Albumin Globulin Ratio 0.8 (0.9-2); Bilirubin,Total 0.5 mg/dl (0.2-1); Globulin 3.2 gm/dl (2.5-4.0); Total Protein 5.9 gm/dl (6.4-8.2)
[2021-01-23] MEDS: GABAPENTIN 300 MG CAP PO SCH ×2 (08:17→21:08)
[2021-01-23] MEDS: amLODIPine BESYLATE 5 MG TAB PO SCH (08:18)
[2021-01-23] MEDS: MULTIVITAMIN TAB PO SCH (08:18)
[2021-01-23] MEDS: LOSARTAN POTASSIUM 25 MG TAB PO SCH (08:18)
[2021-01-23] MEDS: POLYETHYLENE (MIRALAX) 17 GM PACK PO SCH (08:19)
[2021-01-23] MEDS: LIDOCAINE 5% 1 PATCH TD SCH (08:19)
[2021-01-23] MEDS: bisacodyL 5 MG TABEC PO SCH (08:23)
[2021-01-23] MEDS: DOCUSATE SODIUM 100 MG CAP PO SCH ×2 (08:23→21:09)
[2021-01-23] MEDS: INSULIN ASPART 100 UNITS/ML 3 ML PEN SC SCH ×4 (08:27→21:06)
--- NOTE | 2021-01-23 09:48 | Orthopedic Progress Note ---
Date of Service January 23, 2021 Assessment & Plan (1) Osteomyelitis of great toe of right foot: Plan: POD 1 s/p Right Great Toe amputation Heel weightbearing only Dressing change tomorrow. Cx's pending. Will continue antibx. Resume Plavix/heparin around dinner time. Admission and Anticipated Discharge Date Admission Date: January 20, 2021 Subjective POD 1 Pt resting comfortably. No complaints this AM. Pain controlled. Physical Exam Physical Exam: Dressings C/D/I. Will leave on today. Results & Data ([facility]) Vital Signs (Past 12 Hours) Vital Signs Temp Pulse Pulse Resp BP Pulse Ox 01/23/21 07:44 36.6 C 64 16 127/78 98 01/23/21 03:20 37.1 C 68 15 134/77 96 01/22/21 22:36 37.2 C 67 16 138/82 98
--- NOTE | 2021-01-23 14:34 | Hospitalist Progress Note ---
Date of Service January 23, 2021 Assessment & Plan (1) Back pain: Plan: Likely related to MSK pain from recent falls at home and from the hospital bed. Ortho spine evaluated him and recommended PT/OT which is ordered and pain control at this time. He is doing well on a lidocaine patch. Will cont to try to avoid narcotics in setting of recent stroke and high fall risk. Tylenol PRN which he is declining at this time. (2) Fall: Plan: multifactorial including recent hospitalization for stroke and ambulatory dysfunction with weakness. Cont PT/OT and likely transition to rehab or SNF. (3) Diabetic ulcer of right great toe: Plan: -debrided recently on 01/17/2021 -MR foot not performed with ZIO monitor in place. -Follows with Ortho with Dr. Reynolds who performed amputation of right great toe on 01/22 -Continue offloading footwear-defer to ortho to order post op -he is recovering well and denying pain in this area -cont post op wound site management per Ortho (4) History of CVA (cerebrovascular accident): Plan: Recently hospitalized for CVA in Nov 2020 and has been on DAPT since that time. ASA stopped 01/21 and cont Plavix for secondary prevention. Cont Lipitor. (5) Elevated transaminase level: Plan: New LFT elevation this admission. No recent LFTs on outpatient record, however, he was here in Jul 2020 and was on atorvastatin at that time, so less likely statin use is a cause. RUQ was normal and LFTs have returned to normal. No further workup at this time. (6) DM type 1 (diabetes mellitus, type 1): Plan: per glycemic pharmacist. Inpatient glucose is at goal. Cont basal bolus insulin. (7) Hyperlipidemia: Plan: -Continue statin therapy post stroke. (8) PVD (peripheral vascular disease): Plan: -Chronic, stable, cont current medical therapy. (9) HTN (hypertension): Plan: -Continue amlodipine 5 mg daily, losartan 25 mg daily (10) Constipation: Plan: Documented BM on 01/19 in the evening. Cont bowel regimen and hold for any loose stools. (11) CKD (chronic kidney disease): Plan: Around his baseline is about 1.6-1.8, may continue medications as above. Renally adjust medications as needed. Avoid nephrotoxic drugs such as NSAIDs. (12) Ambulatory dysfunction: Plan: PT/OT (13) DVT prophylaxis: Plan: heparin DNR Dispo-likely to rehab as a transition to home. [facility] Admission and Anticipated Discharge Date Admission Date: January 20, 2021 Subjective 65 yo M with acute lower back pain back pain is present today but he is ok with the lidocaine patch, declines any tylenol denies any pain in his op site (right foot) didn't sleep well last night tolerating PO denies SOB or other issues today. Review of Systems Review of Systems: All systems were reviewed and negative except as indicated in HPI above. Physical Exam Physical Exam: CONSTITUTIONAL: WNWD, vitals as above, NAD EYES: normal conjunctivae, no scleral icterus ENT: external ear and nose normal, oropharynx clear RESPIRATORY: clear to auscultation bilaterally, no crackles, rales or wheezes, normal respiratory effort CARDIOVASCULAR: regular rate and rhythm, S1 and 2 heard without murmurs, gallops or rubs, no JVD, no peripheral edema CHEST: Zio patch over left anterior chest wall. GASTROINTESTINAL: soft, nontender, nondistended MUSCULOSKELETAL: moves all extremities with ease, head is normocephalic and atraumatic, right foot wrapped in a cast/bandage. SKIN: warm and dry, lidocaine patch on back NEUROLOGIC: No facial palsy, CN 2-12 grossly intact, no sensory deficit, normal cognition, normal speech, no tremor PSYCHIATRIC: alert cooperative and oriented to person, place and time. Results & Data Results & Data ([facility]) Vital Signs (Past 12 Hours) Vital Signs Temp Pulse Pulse Resp BP Pulse Ox 01/23/21 07:44 36.6 C 64 16 127/78 98 01/23/21 03:20 37.1 C 68 15 134/77 96 Laboratory Results Short CBC 01/23/21 Range/Units 04:56 WBC 5.10 (4.8-10.8) K/uL Hgb 12.6 L (14.0-18.0) g/dL Hct 37.1 L (42-52) % Plt Count 212 (130-400) K/uL BMP 01/23/21 04:56 Sodium 138 Potassium 4.6 Chloride 108 H Carbon Dioxide 27 BUN 36 H Creatinine 1.38 Glucose 127 H Calcium 8.5 Liver Function 01/23/21 Range/Units 04:56 Total Bilirubin 0.5 (0.2-1) mg/dl AST 28 (15-37) U/L ALT 64 (12-78) U/L Alkaline Phosphatase 111 (45-117) U/L Albumin 2.7 L (3.4-5.0) gm/dl Medications Administered Current Inpatient Medications Acetaminophen (Acetaminophen 325 Mg Tab) 650 mg PO Q4H PRN PRN Reason: Moderate Pain Stop: 02/18/21 18:15 Last Admin: 01/20/21 07:57 Dose: 650 mg Documented by: Amlodipine Besylate (Amlodipine Besylate 5 Mg Tab) 5 mg PO QAM [place] Stop: 02/19/21 08:59 Last Admin: 01/23/21 08:18 Dose: 5 mg Documented by: Atorvastatin Calcium (Atorvastatin 40 Mg Tab) 40 mg PO HS [facility] Stop: 02/18/21 20:59 Last Admin: 01/22/21 21:39 Dose: 40 mg Documented by: Bisacodyl (Bisacodyl 5 Mg Tabec) 5 mg PO DAILY [place] Stop: 02/18/21 18:15 Last Admin: 01/23/21 08:23 Dose: Not Given Documented by: Bisacodyl (Bisacodyl 10 Mg Supp) 10 mg LA DAILY PRN PRN Reason: Constipation Stop: 02/21/21 12:51 Dextrose (Dextrose 50% 50 Ml Syringe) 25 - 50 ml IV UD PRN; Protocol PRN Reason: Hypoglycemia Protocol Stop: 02/18/21 18:15 Last Admin: 01/21/21 06:59 Dose: 50 ml Documented by: Docusate Sodium (Docusate Sodium 100 Mg Cap) 100 mg PO BID [place] Stop: 02/21/21 20:59 Last Admin: 01/23/21 08:23 Dose: Not Given Documented by: Gabapentin (Gabapentin 300 Mg Cap) 600 mg PO BID [place] Stop: 02/18/21 20:59 Last Admin: 01/23/21 08:17 Dose: 600 mg Documented by: Glucagon (Glucagon For Inj 1 Mg Vial) 1 mg SQ UD PRN; Protocol PRN Reason: Hypoglycemia Protocol Stop: 02/18/21 18:15 Glucose (Glucose 10 Tabs/Tube) 4 - 8 tabs PO UD PRN; Protocol PRN Reason: Hypoglycemia Protocol Stop: 02/18/21 18:15 Glucose (Glucose 40% Gel 15 Gm Tube) 15 - 30 gm PO UD PRN; Protocol PRN Reason: Hypoglycemia Protocol Stop: 02/18/21 18:15 Last Admin: 01/21/21 06:33 Dose: 15 gm Documented by: Hydromorphone HCl (Hydromorphone Inj 0.5 Mg/0.5 Ml Syr) 0.5 mg IV Q4H PRN PRN Reason: Pain or Pre PT Stop: 02/05/21 12:51 Cefazolin Sodium (Ancef 1000mg) 1,000 mg in 7.5 mls @ 2.5 mls/min IV Q8H [facility] Stop: 03/06/21 09:59 Last Admin: 01/23/21 13:01 Dose: 2.5 mls/min Documented by: Insulin Aspart (Insulin Aspart 100 Units/Ml 3 Ml Pen) 0 units SC ACHS [facility] Stop: 02/21/21 16:29 Last Admin: 01/23/21 12:59 Dose: 5 units Documented by: Insulin Glargine (Insulin Glargine Solostar 100 Units/Ml 3 Ml Pen) 18 units SC HS [facility]; Protocol Stop: 02/22/21 20:59 Lidocaine (Lidocaine 5% 1 Patch) 1 patch TD QAM [facility] Stop: 02/18/21 18:29 Last Admin: 01/23/21 08:19 Dose: 1 patch Documented by: Losartan Potassium (Losartan Potassium 25 Mg Tab) 25 mg PO QAM [facility] Stop: 02/19/21 08:59 Last Admin: 01/23/21 08:18 Dose: 25 mg Documented by: Magnesium Hydroxide (Magnesium Hydroxide Susp 30 Ml Udc) 30 ml PO Q6H PRN PRN Reason: Constipation Stop: 02/21/21 12:51 Miscellaneous (Fexofenadine-Pseudoephedrine [Merari-D 12 Hour] 60-120 Mg Table~Order Awaiting Action) 1 ea N/A QS [facility] Stop: 02/19/21 00:00 Last Admin: 01/23/21 08:18 Dose: Not Given Documented by: Miscellaneous (Carbohydrates For Hypoglycemia ) 15 - 30 gm PO UD PRN PRN Reason: Hypoglycemia Protocol Stop: 02/18/21 18:15 Last Admin: 01/19/21 18:44 Dose: 15 gm Documented by: Miscellaneous (Remove Lidoderm Patch) 1 ea N/A DAILY@2100 [facility] Stop: 02/18/21 20:59 Last Admin: 01/22/21 23:17 Dose: Not Given Documented by: Miscellaneous Information (Pharmacy Glycemic Mgmt Consult) 1 ea N/A UD PRN; Protocol PRN Reason: Consult Stop: 02/18/21 18:33 Multivitamins (Multivitamin Tab) 1 tab PO QAM [place] Stop: 02/22/21 08:59 Last Admin: 01/23/21 08:18 Dose: 1 tab Documented by: Naloxone HCl (Naloxone Hcl 0.4 Mg/1 Ml Vial/Carp) 0.1 mg IV Q5M PRN PRN Reason: Oversedation/Resp Depression Stop: 02/21/21 12:51 Ondansetron HCl (Ondansetron Inj 2 Mg/Ml 2 Ml Vial) 4 mg IV Q4H PRN PRN Reason: Nausea And Vomiting Stop: 02/18/21 18:15 Oxycodone/Acetaminophen (Oxycodone/Acetaminophen 5mg/325mg Tab) 1 tab PO Q6H PRN PRN Reason: Pain Stop: 02/02/21 18:15 Polyethylene Glycol (Polyethylene (Miralax) 17 Gm Pack) 17 gm PO DAILY [facility] Stop: 02/18/21 18:15 Last Admin: 01/23/21 08:19 Dose: Not Given Documented by: (1) Fall Encounter type: initial encounter Qualified Code(s): W19.XXXA - Unspecified fall, initial encounter (2) DM type 1 (diabetes mellitus, type 1) Diabetes mellitus complication status: without complication Qualified Code(s): E10.9 - Type 1 diabetes mellitus without complications (3) CKD (chronic kidney disease) Chronic kidney disease stage: unspecified stage Qualified Code(s): N18.9 - Chronic kidney disease, unspecified
[2021-01-23] MEDS: INSULIN GLARGINE SOLOSTAR 100 UNITS/ML 3 ML PEN SC SCH (21:07)
[2021-01-23] MEDS: ATORVASTATIN 40 MG TAB PO SCH (21:09)
[2021-01-24] MEDS: ceFAZolin 1000MG 1,000 MG/7.5 ML SYR IV SCH ×3 (04:08→19:46)
[2021-01-24 06:45] LABS: Hematocrit (blood only) 34.6 % (42-52); Hemoglobin 11.8 g/dL (14.0-18.0); Mean Corpuscular Hemoglobin 29.9 pg (25-34); Mean Corpuscular Hgb Conc 34.1 g/dL (32-36); Mean Corpuscular Volume 87.6 fL (80-100); Mean Platelet Volume 10.9 fL (7.4-10.4); Platelet Count 206 K/uL (130-400); RDW Coefficient of Variation 12.6 % (11.5-14.5); RDW Standard Deviation 40.9 fL (36.4-46.3); Red Blood Count 3.95 M/uL (4.7-6.1); White Blood Count 6.14 K/uL (4.8-10.8)
[2021-01-24 07:12] LABS: BUN Creatinine Ratio 25.1 (10-20); Calcium 8.7 mg/dl (8.5-10.1); Creatinine Clr Calc Pharmacy 53.8 ml/min; Est GFR (Non-African American) 50.9 ml/min; Potassium 4.2 mmol/L (3.5-5.1)
[2021-01-24] MEDS: bisacodyL 5 MG TABEC PO SCH (08:41)
[2021-01-24] MEDS: DOCUSATE SODIUM 100 MG CAP PO SCH ×2 (08:41→20:40)
[2021-01-24] MEDS: GABAPENTIN 300 MG CAP PO SCH ×2 (08:42→20:42)
[2021-01-24] MEDS: amLODIPine BESYLATE 5 MG TAB PO SCH (08:42)
[2021-01-24] MEDS: POLYETHYLENE (MIRALAX) 17 GM PACK PO SCH (08:42)
[2021-01-24] MEDS: MULTIVITAMIN TAB PO SCH (08:43)
[2021-01-24] MEDS: LOSARTAN POTASSIUM 25 MG TAB PO SCH (08:43)
[2021-01-24] MEDS: CLOPIDOGREL BISULFATE 75 MG TAB PO SCH (08:46)
[2021-01-24] MEDS: INSULIN ASPART 100 UNITS/ML 3 ML PEN SC SCH ×4 (09:15→20:44)
[2021-01-24] MEDS: LIDOCAINE 5% 1 PATCH TD SCH (09:16)
--- NOTE | 2021-01-24 14:47 | Pharmacy Report ---
Pharmacy Glycemic Short Note 2 - Date of Service January 24, 2021 - Glycemic Short BSG Results (Last 24 hours): 01/23/21 01/23/21 01/24/21 17:01 20:55 05:25 Glucose 101 H POC Glucose 301 H* 201 H 01/24/21 01/24/21 08:07 12:11 Glucose POC Glucose 116 H 251 H OUTPATIENT ANTIDIABETIC REGIMEN: * Lantus 35 units; Novolog 3 units with meals * A1c 9.0% 12/27/20 ASSESSMENT: 01/24/21: * Patient received total 49 units of insulin yesterday; 18 units basal + 31 units bolus. * Fasting BSG today was 116 mg/dl. Continued same basal dose. * Post-prandial BSGs elevated. Tightened Novolog CF and CR. 01/22/21: * Miki received 24 units of insulin yesterday (12 units of basal and 12 units of bolus). He was NPO for half of the day. He is s/p R great toe amputation. * His fasting BSG was 85 mg/dL this AM, which is slightly lower than we would prefer while hospitalized. Lantus was reduced last evening for NPO status. Since diet has been resumed, I will increase basal insulin scale but continue will an overall reduced dosage. * No changes to novolog parameters 01/21/21: * Miki received 43 units of insulin yesterday (24 units of basal and 19 units of bolus) * Pt had an episode of asymptomatic hypoglycemia this morning which resolved after an amp of D50. I suspect this was due to full dose of basal insulin given last evening while NPO. I have reduced Lantus dose by 50%. * He will resume a diet for lunch and dinner today and then return to NPO status for right great toe amputation on 01/22. Based on fluctuating post prandial BSGs and previous admission data, I suspect pt requires more carb coverage and less correctional insulin. Background: * JONAH is admitted with a back injury/fall. He has type 1 diabetes. Patient was hypoglycemic in the ED and upon admission. Patient reports last lantus use was 01/18 AM and patient has not eaten anything today. * Outpatient regimen is very basal heavy (~80% basal), suspect this helps cover mealtime carbs. Pt reports to nurse frequently not checking BSGs. With past admission patient was requiring a lower lantus dose. Will not hold lantus as patient is a type I and will require some basal but will reduce dose empirically by 30-40% * Will initiate weight based stress of 2 novolog. Will monitor as needed for adjustments. PLAN FOR INPATIENT GLYCEMIC CONTROL: * Hold outpatient oral diabetes medications * Basal insulin - continued * Lantus 14-18 units SQ qHS (18 units for BSG 160 or more) * Bolus insulin: tightened CF/CR * NovoLog per scale ACHS or Q6hrs while NPO * Goal Range: Low 110 mg/dL - High 140 mg/dL * Correction Factor: 25 mg/dL/unit * Nutritional / Prandial insulin per carb ratio of 1 unit per 6 grams CHO consumed
--- NOTE | 2021-01-24 14:52 | Orthopedic Progress Note ---
Date of Service January 24, 2021 Assessment & Plan (1) Osteomyelitis of great toe of right foot: Plan: POD 2 s/p Right Great Toe amputation Heel weightbearing only Daily dressing changes. Cx's pending. No growth to date. Resume Plavix/heparin Admission and Anticipated Discharge Date Admission Date: January 20, 2021 Subjective Postop day 2 Patient sleeping upon arrival. I am able to wake him up but he goes back to sleep quickly. He apparently had just finished his physical therapy session. No complaints today. Pain is controlled. Physical Exam Physical Exam: Dressings removed. Suture line is intact. Mild erythema over small portion but no drainage. Mild swelling. Wound redressed with Adaptic, 4 x 4's, Kerlix and Kolton wrap. Results & Data ([facility]) Vital Signs (Past 12 Hours) Vital Signs Temp Pulse Resp BP Pulse Ox 01/24/21 14:09 36.4 C L 70 16 143/84 H 97 01/24/21 08:39 73 138/89 01/24/21 07:29 36.4 C L 64 17 150/87 H 97
--- NOTE | 2021-01-24 18:42 | Hospitalist Progress Note ---
Date of Service January 24, 2021 Assessment & Plan (1) Back pain: Plan: Likely related to MSK pain from recent falls at home and from the hospital bed. Ortho spine evaluated him and recommended PT/OT which is ordered and pain control at this time. He is doing well on a lidocaine patch. Will cont to try to avoid narcotics in setting of recent stroke and high fall risk. Tylenol PRN which he is declining at this time. (2) Diabetic ulcer of right great toe: Plan: -debrided recently on 01/17/2021 -MR foot not performed with ZIO monitor in place. -Follows with Ortho with Dr. Reynolds (3) Osteomyelitis of great toe of right foot: Plan: s/p amputation of right great toe on 01/22, cont cefazolin. ID consult for definitive antibiotic recommendations. (4) Post-operative state: Plan: Healing well, pain managed. wound care per Ortho. Heel weightbearing only. Tr ansition to rehab at discharge with post op state and recent stroke. (5) Fall: Plan: multifactorial including recent hospitalization for stroke and ambulatory dysfunction. Cont PT/OT and likely transition to rehab or SNF. (6) History of CVA (cerebrovascular accident): Plan: Recently hospitalized for CVA in Nov 2020 and has been on DAPT since that time. ASA stopped 01/21 and cont Plavix for secondary prevention. Cont Lipitor. (7) Elevated transaminase level: Plan: New LFT elevation this admission. No recent LFTs on outpatient record, however, he was here in Jul 2020 and was on atorvastatin at that time, so less likely statin use is a cause. RUQ was normal and LFTs have returned to normal. No further workup at this time. (8) DM type 1 (diabetes mellitus, type 1): Plan: per glycemic pharmacist. Inpatient glucose is at goal. Cont basal bolus insulin. (9) Hyperlipidemia: Plan: -Continue statin therapy post stroke. (10) PVD (peripheral vascular disease): Plan: -Chronic, stable, cont current medical therapy. (11) HTN (hypertension): Plan: -Continue amlodipine 5 mg daily, losartan 25 mg daily (12) Constipation: Plan: Cont bowel regimen and hold for any loose stools. (13) CKD (chronic kidney disease): Plan: Around his baseline is about 1.6-1.8, may continue medications as above. Renally adjust medications as needed. Avoid nephrotoxic drugs such as NSAIDs. (14) Ambulatory dysfunction: Plan: PT/OT (15) DVT prophylaxis: Plan: Lovenox DNR Dispo-likely to rehab as a transition to home. [facility] Admission and Anticipated Discharge Date Admission Date: January 20, 2021 Subjective 65 yo M with acute lower back pain found to have osteo of right great toe s/p amputation back pain is present today but he is ok with the lidocaine patch, consistently declines any tylenol denies any pain in his op site (right foot) tolerating PO denies SOB or other issues today. Review of Systems Review of Systems: All systems were reviewed and negative except as indicated in HPI above. Physical Exam Physical Exam: CONSTITUTIONAL: WNWD, vitals as above, NAD EYES: normal conjunctivae, no scleral icterus ENT: external ear and nose normal, oropharynx clear RESPIRATORY: clear to auscultation bilaterally, no crackles, rales or wheezes, normal respiratory effort CARDIOVASCULAR: regular rate and rhythm, S1 and 2 heard without murmurs, gallops or rubs, no JVD, no peripheral edema CHEST: Zio patch over left anterior chest wall. GASTROINTESTINAL: soft, nontender, nondistended MUSCULOSKELETAL: moves all extremities with ease, head is normocephalic and atraumatic, right foot wrapped in a bandage. SKIN: warm and dry, lidocaine patch on back NEUROLOGIC: No facial palsy, CN 2-12 grossly intact, no sensory deficit, normal cognition, normal speech, no tremor PSYCHIATRIC: alert cooperative and oriented to person, place and time. Results & Data Results & Data ([facility]) Vital Signs (Past 12 Hours) Vital Signs Temp Pulse Resp BP Pulse Ox 01/24/21 14:09 36.4 C L 70 16 143/84 H 97 01/24/21 08:39 73 138/89 01/24/21 07:29 36.4 C L 64 17 150/87 H 97 Laboratory Results Short CBC 01/24/21 Range/Units 05:25 WBC 6.14 (4.8-10.8) K/uL Hgb 11.8 L (14.0-18.0) g/dL Hct 34.6 L (42-52) % Plt Count 206 (130-400) K/uL BMP 01/24/21 05:25 Sodium 139 Potassium 4.2 Chloride 108 H Carbon Dioxide 25 BUN 36 H Creatinine 1.45 H Glucose 101 H Calcium 8.7 Medications Administered Current Inpatient Medications Acetaminophen (Acetaminophen 325 Mg Tab) 650 mg PO Q4H PRN PRN Reason: Moderate Pain Stop: 02/18/21 18:15 Last Admin: 01/20/21 07:57 Dose: 650 mg Documented by: Amlodipine Besylate (Amlodipine Besylate 5 Mg Tab) 5 mg PO QAM [place] Stop: 02/19/21 08:59 Last Admin: 01/24/21 08:42 Dose: 5 mg Documented by: Atorvastatin Calcium (Atorvastatin 40 Mg Tab) 40 mg PO HS [facility] Stop: 02/18/21 20:59 Last Admin: 01/23/21 21:09 Dose: 40 mg Documented by: Bisacodyl (Bisacodyl 5 Mg Tabec) 5 mg PO DAILY [place] Stop: 02/18/21 18:15 Last Admin: 01/24/21 08:41 Dose: Not Given Documented by: Bisacodyl (Bisacodyl 10 Mg Supp) 10 mg MT DAILY PRN PRN Reason: Constipation Stop: 02/21/21 12:51 Clopidogrel Bisulfate (Clopidogrel Bisulfate 75 Mg Tab) 75 mg PO QAM [facility] Stop: 02/23/21 08:59 Last Admin: 01/24/21 08:46 Dose: 75 mg Documented by: Dextrose (Dextrose 50% 50 Ml Syringe) 25 - 50 ml IV UD PRN; Protocol PRN Reason: Hypoglycemia Protocol Stop: 02/18/21 18:15 Last Admin: 01/21/21 06:59 Dose: 50 ml Documented by: Docusate Sodium (Docusate Sodium 100 Mg Cap) 100 mg PO BID [place] Stop: 02/21/21 20:59 Last Admin: 01/24/21 08:41 Dose: Not Given Documented by: Gabapentin (Gabapentin 300 Mg Cap) 600 mg PO BID [place] Stop: 02/18/21 20:59 Last Admin: 01/24/21 08:42 Dose: 600 mg Documented by: Glucagon (Glucagon For Inj 1 Mg Vial) 1 mg SQ UD PRN; Protocol PRN Reason: Hypoglycemia Protocol Stop: 02/18/21 18:15 Glucose (Glucose 10 Tabs/Tube) 4 - 8 tabs PO UD PRN; Protocol PRN Reason: Hypoglycemia Protocol Stop: 02/18/21 18:15 Glucose (Glucose 40% Gel 15 Gm Tube) 15 - 30 gm PO UD PRN; Protocol PRN Reason: Hypoglycemia Protocol Stop: 02/18/21 18:15 Last Admin: 01/21/21 06:33 Dose: 15 gm Documented by: Hydromorphone HCl (Hydromorphone Inj 0.5 Mg/0.5 Ml Syr) 0.5 mg IV Q4H PRN PRN Reason: Pain or Pre PT Stop: 02/05/21 12:51 Cefazolin Sodium (Ancef 1000mg) 1,000 mg in 7.5 mls @ 2.5 mls/min IV Q8H [facility] Stop: 03/06/21 09:59 Last Admin: 01/24/21 12:40 Dose: 2.5 mls/min Documented by: Insulin Aspart (Insulin Aspart 100 Units/Ml 3 Ml Pen) 0 units SC ACHS [facility] Stop: 02/21/21 16:29 Last Admin: 01/24/21 17:38 Dose: 6 units Documented by: Insulin Glargine (Insulin Glargine Solostar 100 Units/Ml 3 Ml Pen) 18 units SC HS [facility]; Protocol Stop: 02/22/21 20:59 Last Admin: 01/23/21 21:07 Dose: 18 units Documented by: Lidocaine (Lidocaine 5% 1 Patch) 1 patch TD [facility] Stop: 02/18/21 18:29 Last Admin: 01/24/21 09:16 Dose: 1 patch Documented by: Losartan Potassium (Losartan Potassium 25 Mg Tab) 25 mg PO QAM [facility] Stop: 02/19/21 08:59 Last Admin: 01/24/21 08:43 Dose: 25 mg Documented by: Magnesium Hydroxide (Magnesium Hydroxide Susp 30 Ml Udc) 30 ml PO Q6H PRN PRN Reason: Constipation Stop: 02/21/21 12:51 Miscellaneous (Carbohydrates For Hypoglycemia ) 15 - 30 gm PO UD PRN PRN Reason: Hypoglycemia Protocol Stop: 02/18/21 18:15 Last Admin: 01/19/21 18:44 Dose: 15 gm Documented by: Miscellaneous (Remove Lidoderm Patch) 1 ea N/A DAILY@2100 [facility] Stop: 02/18/21 20:59 Last Admin: 01/23/21 21:09 Dose: 1 ea Documented by: Miscellaneous Information (Pharmacy Glycemic Mgmt Consult) 1 ea N/A UD PRN; Protocol PRN Reason: Consult Stop: 02/18/21 18:33 Multivitamins (Multivitamin Tab) 1 tab PO QAM [place] Stop: 02/22/21 08:59 Last Admin: 01/24/21 08:43 Dose: 1 tab Documented by: Naloxone HCl (Naloxone Hcl 0.4 Mg/1 Ml Vial/Carp) 0.1 mg IV Q5M PRN PRN Reason: Oversedation/Resp Depression Stop: 02/21/21 12:51 Ondansetron HCl (Ondansetron Inj 2 Mg/Ml 2 Ml Vial) 4 mg IV Q4H PRN PRN Reason: Nausea And Vomiting Stop: 02/18/21 18:15 Oxycodone/Acetaminophen (Oxycodone/Acetaminophen 5mg/325mg Tab) 1 tab PO Q6H PRN PRN Reason: Pain Stop: 02/02/21 18:15 Polyethylene Glycol (Polyethylene (Miralax) 17 Gm Pack) 17 gm PO DAILY [place] Stop: 02/18/21 18:15 Last Admin: 01/24/21 08:42 Dose: Not Given Documented by: (1) DM type 1 (diabetes mellitus, type 1) Diabetes mellitus complication status: without complication Qualified Code(s): E10.9 - Type 1 diabetes mellitus without complications (2) CKD (chronic kidney disease) Chronic kidney disease stage: unspecified stage Qualified Code(s): N18.9 - Chronic kidney disease, unspecified (3) Fall Encounter type: initial encounter Qualified Code(s): W19.XXXA - Unspecified fall, initial encounter
[2021-01-24] MEDS: ATORVASTATIN 40 MG TAB PO SCH (20:42)
[2021-01-24] MEDS: INSULIN GLARGINE SOLOSTAR 100 UNITS/ML 3 ML PEN SC SCH (20:45)
[2021-01-25] MEDS: ceFAZolin 1000MG 1,000 MG/7.5 ML SYR IV SCH ×2 (04:39→12:06)
[2021-01-25 06:29] LABS: Hematocrit (blood only) 35.3 % (42-52); Mean Corpuscular Hemoglobin 29.9 pg (25-34); Mean Corpuscular Volume 87.8 fL (80-100); Mean Platelet Volume 10.8 fL (7.4-10.4); Platelet Count 235 K/uL (130-400); RDW Coefficient of Variation 12.7 % (11.5-14.5); RDW Standard Deviation 41.1 fL (36.4-46.3); Red Blood Count 4.02 M/uL (4.7-6.1); White Blood Count 5.69 K/uL (4.8-10.8)
[2021-01-25 06:59] LABS: BUN Creatinine Ratio 28.4 (10-20); C Reactive Protein 4.7 mg/dl (0-0.29); Calcium 8.6 mg/dl (8.5-10.1); Est GFR (African American) 56.6 ml/min; Est GFR (Non-African American) 48.8 ml/min; Potassium 4.6 mmol/L (3.5-5.1)
[2021-01-25] MEDS: INSULIN ASPART 100 UNITS/ML 3 ML PEN SC SCH ×4 (09:11→22:20)
[2021-01-25] MEDS: CLOPIDOGREL BISULFATE 75 MG TAB PO SCH (09:13)
[2021-01-25] MEDS: LOSARTAN POTASSIUM 25 MG TAB PO SCH (09:13)
[2021-01-25] MEDS: bisacodyL 5 MG TABEC PO SCH (09:14)
[2021-01-25] MEDS: MULTIVITAMIN TAB PO SCH (09:14)
[2021-01-25] MEDS: DOCUSATE SODIUM 100 MG CAP PO SCH ×2 (09:14→20:19)
[2021-01-25] MEDS: GABAPENTIN 300 MG CAP PO SCH ×2 (09:14→20:19)
[2021-01-25] MEDS: LIDOCAINE 5% 1 PATCH TD SCH (09:15)
[2021-01-25] MEDS: POLYETHYLENE (MIRALAX) 17 GM PACK PO SCH (09:16)
[2021-01-25] MEDS: amLODIPine BESYLATE 5 MG TAB PO SCH (09:18)
[2021-01-25] MEDS: ENOXAPARIN INJ 40 MG/0.4 ML SYR SQ SCH (09:18)
--- NOTE | 2021-01-25 15:39 | Hospitalist Progress Note ---
Date of Service January 25, 2021 Assessment & Plan (1) Back pain: Plan: Was reported that is likely musculoskeletal in nature given his recent falls at home and from the hospital bed. Appreciate orthospine input. Continue to work with PT/OT. Patient reports pain is improved,continue with lidocaine patch. Avoid narcotics in the setting of recent stroke. Continue Tylenol for pain control. (2) Diabetic ulcer of right great toe: Plan: -debrided recently on 01/17/2021 -MR foot not performed with ZIO monitor in place. -Follows with Ortho with Dr. Reynolds (3) Osteomyelitis of great toe of right foot: Plan: s/p amputation of right great toe on 01/22, cont cefazolin. Infectious disease has been consulted and currently awaiting their input. (4) Post-operative state: Plan: Healing well, pain managed. wound care per Ortho. Heel weightbearing only. Transition to rehab at discharge with post op state and recent stroke. Patient had approved authorization. Awaiting infectious disease input. (5) Fall: Plan: multifactorial including recent hospitalization for stroke and ambulatory dysfunction. Cont PT/OT and likely transition to rehab or SNF. (6) History of CVA (cerebrovascular accident): Plan: Recently hospitalized for CVA in Nov 2020 and has been on DAPT since that time. ASA stopped 01/21 and cont Plavix for secondary prevention. Cont Lipitor. (7) Elevated transaminase level: Plan: New LFT elevation this admission. No recent LFTs on outpatient record, however, he was here in Jul 2020 and was on atorvastatin at that time, so less likely statin use is a cause. RUQ was normal and LFTs have returned to normal. No further workup at this time. (8) DM type 1 (diabetes mellitus, type 1): Plan: per glycemic pharmacist. Inpatient glucose is at goal. Cont basal bolus i nsulin. (9) Hyperlipidemia: Plan: -Continue statin therapy post stroke. (10) PVD (peripheral vascular disease): Plan: -Chronic, stable, cont current medical therapy. (11) HTN (hypertension): Plan: -Continue amlodipine 5 mg daily, losartan 25 mg daily (12) Constipation: Plan: Cont bowel regimen and hold for any loose stools. (13) CKD (chronic kidney disease): Plan: Around his baseline is about 1.6-1.8, may continue medications as above. Renally adjust medications as needed. Avoid nephrotoxic drugs such as NSAIDs. (14) Ambulatory dysfunction: Plan: PT/OT (15) DVT prophylaxis: Plan: Lovenox DNR Dispo-likely to rehab as a transition to home. Admission and Anticipated Discharge Date Admission Date: January 20, 2021 Subjective Patient is doing okay this morning. He is awake, alert and oriented x3. Denies any pain or any discomfort. Denies any chest pain, shortness of breath, abdominal pain, diarrhea or dysuria. Review of Systems Review of Systems: All systems reviewed & are unremarkable except as noted in HPI & below Physical Exam Physical Exam: General: A&Ox3 HENT: NCAT, MMM, EOMI Eyes: PERRLA Neck: Supple, normal range of motion CVS: normal rate and rhythm Resp: b/l good breath sounds Abdomen: Soft, ND/NT Extremities:RLE dressing is intact Neuro: face symmetric, no focal deficit Skin: warm and dry, no rashes/lesions/errythema MSK: no joint swelling/erythema Results & Data Results & Data ([facility]) Vital Signs (Past 12 Hours) Vital Signs Temp Pulse Resp BP Pulse Ox 01/25/21 07:52 36.5 C 69 17 126/79 98 Laboratory Results Laboratory Results - last 24 hr 01/24/21 01/24/21 01/25/21 17:15 20:28 05:43 WBC 5.69 RBC 4.02 L Hgb 12.0 L Hct 35.3 L MCV 87.8 MCH 29.9 MCHC 34.0 RDW Std Deviation 41.1 RDW Coeff of Дмитрий 12.7 Plt Count 235 MPV 10.8 H ESR Sodium Potassium Chloride Carbon Dioxide Anion Gap BUN Creatinine Est Cr Clr Drug Dosing Est GFR ( Amer) Est GFR (Non-Af Amer) BUN/Creatinine Ratio Glucose POC Glucose 145 H 181 H Calcium C-Reactive Protein 01/25/21 01/25/21 01/25/21 05:43 05:43 08:11 WBC RBC Hgb Hct MCV MCH MCHC RDW Std Deviation RDW Coeff of Дмитрий Plt Count MPV ESR 41 H Sodium 138 Potassium 4.6 Chloride 108 H Carbon Dioxide 27 Anion Gap 3.0 BUN 43 H Creatinine 1.50 H Est Cr Clr Drug Dosing 52.0 Est GFR ( Amer) 56.6 Est GFR (Non-Af Amer) 48.8 BUN/Creatinine Ratio 28.4 H Glucose 230 H POC Glucose 271 H Calcium 8.6 C-Reactive Protein 4.70 H 01/25/21 12:11 WBC RBC Hgb Hct MCV MCH MCHC RDW Std Deviation RDW Coeff of Дмитрий Plt Count MPV ESR Sodium Potassium Chloride Carbon Dioxide Anion Gap BUN Creatinine Est Cr Clr Drug Dosing Est GFR ( Amer) Est GFR (Non-Af Amer) BUN/Creatinine Ratio Glucose POC Glucose 288 H Calcium C-Reactive Protein (1) Fall Encounter type: initial encounter Qualified Code(s): W19.XXXA - Unspecified fall, initial encounter (2) DM type 1 (diabetes mellitus, type 1) Diabetes mellitus complication status: without complication Qualified Code(s): E10.9 - Type 1 diabetes mellitus without complications (3) CKD (chronic kidney disease) Chronic kidney disease stage: unspecified stage Qualified Code(s): N18.9 - Chronic kidney disease, unspecified
[2021-01-25] MEDS: ceFAZolin 2000MG 2,000 MG/15 ML SYR IV SCH (20:19)
[2021-01-25] MEDS: ATORVASTATIN 40 MG TAB PO SCH (20:19)
[2021-01-25] MEDS ORDERED: INSULIN GLARGINE SOLOSTAR 100 UNITS/ML 3 ML PEN SC SCH (21:00)
[2021-01-26] MEDS: ceFAZolin 2000MG 2,000 MG/15 ML SYR IV SCH ×2 (05:33→12:45)
[2021-01-26] MEDS: ENOXAPARIN INJ 40 MG/0.4 ML SYR SQ SCH (08:16)
[2021-01-26] MEDS: bisacodyL 5 MG TABEC PO SCH (08:16)
[2021-01-26] MEDS: DOCUSATE SODIUM 100 MG CAP PO SCH (08:16)
[2021-01-26] MEDS: POLYETHYLENE (MIRALAX) 17 GM PACK PO SCH (08:16)
[2021-01-26] MEDS: GABAPENTIN 300 MG CAP PO SCH (08:18)
[2021-01-26] MEDS: CLOPIDOGREL BISULFATE 75 MG TAB PO SCH (08:18)
[2021-01-26] MEDS: amLODIPine BESYLATE 5 MG TAB PO SCH (08:18)
[2021-01-26] MEDS: MULTIVITAMIN TAB PO SCH (08:18)
[2021-01-26] MEDS: INSULIN ASPART 100 UNITS/ML 3 ML PEN SC SCH ×2 (08:19→12:45)
[2021-01-26] MEDS: LOSARTAN POTASSIUM 25 MG TAB PO SCH (08:19)
[2021-01-26] MEDS: LIDOCAINE 5% 1 PATCH TD SCH (08:22)
--- NOTE | 2021-01-26 16:03 | Discharge Summary ---
Date of Service January 26, 2021 Admission HPI Per Admitting Provider This is a 65-year-old male with PMHx of recent CVA at end of November 2020 involving the left thalamus, left cerebral peduncle, right medial temporal lobe causing ambulatory dysfunction and frequent falls, HTN, HLD, DM type I, PVD, right great toe diabetic ulceration, presents to the ER with back pain status post a fall at home. Patient reports that he fell 4 days ago and then again today. He denies lightheadedness or dizziness or sustaining an injury to his head with either of these falls. Recently the patient was admitted from the end of November to December 31, 2020 for a CVA, after hospital stay he was admitted to [facility] for continued rehab and was discharged from there at the end of last week (01/12 or 01/13), lives at home with his brother. Since then he has been dissipating and exercises, and using ambulatory devices. Patient's main complaint today is of back pain that he feels is in the mid back,"at the bottom of my rib cage" as well as a low back pain during the exam. He rates pain as a 4/10, dull, achey. Denies pain medications by mouth. He would prefer to use heat, ice or lidocaine patch. He denies any focal weakness in his extremities. Patient denies any other acute complaints. He admits to constipation where his last bowel movement was 4 days ago, and states this is normal for him. He does not typically use MiraLAX or stool softeners as did not seem to help, but reports that when he eats ice cream this helps to move his bowels. Denies lactose intolerance. Admission Exam Per Admitting Provider General: awake, alert, no apparent distress Head: Normocephalic, atraumatic ENT: PERRL, EOMI, no pharyngeal exudate, mucous membranes moist Chest: Clear to auscultation, on room air, no adventitious breath sounds Cardiac: Regular rate and rhythm, no murmur, no JVD, normal peripheral pulses, good capillary refill Abdominal: NABS x 4 quadrants, soft, nondistended, nontender to palpation, no rebound or guarding Back: + tenderness at level of T10-T11, tenderness at L4-L5 Extremities: Normal inspection, no peripheral edema or erythema, calfs nontender to palpation Psych: Normal mood and affect Neuro: AAO x 3, strength intact bilaterally and rated 5/5, no motor deficits, speech is clear, no peripheral sensory deficits Principal Diagnosis Diabetic ulcer of right great toe: Discharge Exam General: A&Ox3 HENT: NCAT, MMM, EOMI Eyes: PERRLA Neck: Supple, normal range of motion CVS: normal rate and rhythm Resp: b/l good breath sounds Abdomen: Soft, ND/NT Extremities:RLE dressing is intact Neuro: face symmetric, no focal deficit Skin: warm and dry, no rashes/lesions/errythema MSK: no joint swelling/erythema Discharge Data Allergies Allergy/AdvReac Type Severity Reaction Status Date / Time levofloxacin Allergy Unknown "nervous" Verified 01/18/21 08:01 shrimp AdvReac Unknown NAUSEA Verified 01/18/21 08:01 Consultations 01/19/21 16:51 ED Decision to Admit Stat 01/19/21 18:16 Consult Orthopedic Surgery Routine 01/20/21 10:24 Consult Orthopedic Surgery Routine 01/24/21 18:43 Consult Infectious Diseases Routine Procedures Performed Operation Date: 01/22/21 09:00 Actual Procedures p Amputation Right Great Toe,(Right) - Goldy Reynolds DO s Irrigation and Debridement Diabetic Ulcer(Right) - Goldy Reynolds DO Ordered Studies 01/19/21 14:28 CT lumbar spine wo con Stat 01/22/21 08:12 US liver Routine Hospital Course (1) Back pain: Was reported that is likely musculoskeletal in nature given his recent falls at home and from the hospital bed. Orthospine was consulted. They recommended PT/OT. On the day of discharge his pain was well controlled. Patient denied any pain. Patient was discharged in stable condition. (2) Diabetic ulcer of right great toe: -debrided recently on 01/17/2021 -MR foot not performed with ZIO monitor in place. -Follows with Ortho with Dr. Reynolds (3) Osteomyelitis of great toe of right foot: s/p amputation of right great toe on 01/22, was on cefazolin during this hospitalization Patient disease was consulted. Infectious disease recommended to discharge patient on p.o. antibiotics. (4) Post-operative state: Healing well, pain managed. wound care per Ortho. Heel weightbearing only. (5) Fall: multifactorial including recent hospitalization for stroke and ambulatory dysfunction. Cont PT/OT and likely transition to rehab or SNF. (6) History of CVA (cerebrovascular accident): Recently hospitalized for CVA in Nov 2020 and has been on DAPT since that time. ASA stopped 01/21 and cont Plavix for secondary prevention. Cont Lipitor. (7) Elevated transaminase level: New LFT elevation this admission. No recent LFTs on outpatient record, however, he was here in Jul 2020 and was on atorvastatin at that time, so less likely statin use is a cause. RUQ was normal and LFTs have returned to normal. No further workup at this time. (8) DM type 1 (diabetes mellitus, type 1): per glycemic pharmacist. Inpatient glucose is at goal. Cont basal bolus insulin. (9) Hyperlipidemia: -Continue statin therapy post stroke. (10) PVD (peripheral vascular disease): -Chronic, stable, cont current medical therapy. (11) HTN (hypertension): -Continue amlodipine 5 mg daily, losartan 25 mg daily (12) Constipation: Cont bowel regimen and hold for any loose stools. (13) CKD (chronic kidney disease): CKD stage III Around his baseline is about 1.6-1.8, may continue medications as above. Renally adjust medications as needed. Avoid nephrotoxic drugs such as NSAIDs. Total Time Total Time Spent Total Time Spent (In Minutes): 25 Discharge Plan Discharge Items Patient Disposition: Transfer [facility] Fac Reason For Visit: AMBULATORY DYSFUNCTION, FALL, BACK INJURY Discharge Diagnosis: Diabetic ulcer of right great toe Activity: Resume your previous activity Non-emergency contact: Primary Care Provider Call non-emergency contact if: your symptoms worsen Follow-up/Referrals: Chalo Tan DO [Primary Care Provider] - Diet: Carb Consistent or DM2 Addtl Attending Provider Instructions: Continue with Augmentin for a total of 7 days. Pending Studies at Discharge: No Stand-Alone Forms: My [facility] Skilled Items Patient informed of condition?: Yes DNR: Yes Discharge Level of Care: Skilled Communicable Disease: No Discharge Prognosis: Stable Lines: None Urinary Catheter: No Medications and DC Order Prescriptions: New amoxicillin-pot clavulanate [Augmentin] 875-125 mg tablet 1 tab PO BID Qty: 14 RF: 0 Continued losartan 25 mg tablet 25 mg PO QAM RF: 0 amlodipine 5 mg tablet 5 mg PO QAM RF: 0 gabapentin 300 mg capsule 600 mg PO BID RF: 0 Lantus Solostar U-100 Insulin 100 unit/mL (3 mL) insulin pen 35 unit SUBCUT QAM RF: 0 atorvastatin 40 mg Tablet 40 mg PO HS Qty: 30 RF: 0 fexofenadine-pseudoephedrine [Merari-D 12 Hour] 60-120 mg Tablet Extended Release 12 Hr 1 tab PO BID Qty: 14 RF: 0 clopidogrel 75 mg Tablet 75 mg PO QAM Qty: 30 RF: 0 insulin aspart U-100 100 unit/mL (3 mL) insulin pen 3 unit SUBCUT TIDM RF: 0 Discontinued aspirin [Aspirin Low Dose] 81 mg Tablet,Delayed Release (Dr/Ec) 81 mg PO QAM RF: 0 Discharge Orders: Discharge Order (Routine); Ordered 01/26/21 Ordered By: Sienna Ortiz Admission Data Admit Date/Time: 01/20/21 14:42 Attending Provider: Sienna Ortiz Admit Provider: Mason Yuan Primary Care Provider: Chalo Tan Other Providers: Mason Yuan ; [facility] ; [place] ; Lester Avendano ; Candelario Bowman ; Goldy Reynolds ; Ari Issa ; Best Sanchez ; Amish Vega I. ; Joel Pantoja II ; Katie Lorenz ; Nathan Gage Other Interventions: Discharge Summary Assessment (RN) Last Done: 01/26/21 12:56
[2021-01-26] MEDS ORDERED: INSULIN GLARGINE SOLOSTAR 100 UNITS/ML 3 ML PEN SC SCH (21:00)
== END 2021-01-26 14:13 | DRG 617 ==
LOC: 3E 13:03 → ED 13:03 → SUATTDRO 17:02 → 3E 18:10 → SUATTDRO 01-20 14:42

== ENCOUNTER 2021-04-29 18:04 | Inpatient (IN) ==
[2021-04-29] MEDS ORDERED: SODIUM CHLORIDE 0.9% 1000ML 1,000 ML IV SCH (18:45)
--- NOTE | 2021-04-29 19:20 | Emergency Department Note ---
Impression & Plan Hyperglycemia due to type 1 diabetes mellitus, Diabetic ulcer of right heel associated with diabetes mellitus due to underlying condition, limited to breakdown of skin, Acute osteomyelitis of right calcaneus, Weakness ED Provider Note Provider: Clifton White MD DATE OF SERVICE: 04/29/2021 CHIEF COMPLAINT: Fatigue, elevated blood sugar, right foot pain HISTORY OF PRESENT ILLNESS: Patient is a 65-year-old gentleman history of type 1 diabetes, hypertension, PVD with stenting, hyperlipidemia, right foot wounds currently following with wound care and on doxycycline as an outpatient presen ting today stating after lunch he began to feel unwell at home. Reports his fatigue but denies significant chest pain, shortness of breath, URI symptoms, fever, abdominal pain, nausea or vomiting. Presents here with his brother. Reports that he feels more fatigued and his blood sugars been elevated. Patient states he has continued chronic pain in his right foot. Has been following with wound care for this. Has been on antibiotics but missed his appointment due to cancellation in the clinic yesterday is post follow-up on Saturday. Patient states that heel wound does not seem to be doing the best. Denies significant headache or focal new numbness or weakness at this time. REVIEW OF SYSTEMS: A total of 10 review of systems was obtained and negative except as stated above in the HPI. PAST MEDICAL HISTORY: As noted above MEDICATIONS: Reviewed home medications includes clopidogrel and doxycycline SOCIAL HISTORY: Retired, lives at home PHYSICAL EXAM: GENERAL: alert and oriented in no acute distress on stretcher fatigued appearing Head: normocephalic and atraumatic EYES: No injection, discharge or icterus. PERRL NECK: Trachea midline. Supple. ENT: Mucous membranes pink and moist. LUNGS: Airway patent. No retractions. Breath sounds clear with good air entry bilaterally. HEART: Regular rate and rhythm. No chest wall tenderness ABDOMEN: Soft and non-tender, without guarding or rebound. BACK: No bilateral flank tenderness. SKIN: Acyanotic, warm, dry EXTREMITIES: Left lower extremity that significant swelling or tenderness. The right lower extremity is bandaged in a boot on the right foot. Removing this there is multiple amputated toes on the right appear well-healed in this area. There is a very small scab in the lateral aspect of the right distal midfoot and slight area over the dorsum of the foot but minimal erythema here. There is an approximately 3 cm area on the posterior right heel with blackened tissue and mild erythema with a very foul smell. NEUROLOGICAL: No focal deficits moving all extremities to command. No aphasia. No facial droop or slurred speech. EK beats per minute. Normal sinus rhythm. No PVC or PAC. No acute ST segment elevation or depression with a QTC of 411. CONTINUOUS CARDIAC MONITORING: was ordered and showed a heart rate of 60s to 90s in normal sinus rhythm Patient's laboratory studies and imaging reviewed. Differential includes Infection, dehydration, metabolic abnormality, hypo/hyperglycemia, electrolyte disturbance, anemia, hypoxia, cardiac sources, intracerebral event, toxicologic, neurologic, as well as other pathologies. IMPRESSION/MEDICAL DECISION MAKING: Patient's blood sugar is elevated and a known type I diabetic. Question if he may developing DKA. Evidence of significant right heel wound with foul smell. Review of recent wound care notes and infectious disease consultation from 10 d ays ago show concerns for developing osteomyelitis here. Recommendation was for possible surgical intervention. Wound culture obtained from the surface of this right heel wound. No significant crepitus and doubt necrotizing fasciitis. Previous cultures reviewed and show evidence of MRSA. Given some IV fluid here. Culture and lactate was sent however he does not grossly appear septic initiall y. I do NOT believe he needs CT of the head at this time as I doubt acute CVA and he has no focal deficits. Blood work shows leukocytosis of 15.2. No significant acidosis or lactate elevation. Renal function appears stable. Covid negative. No troponin elevation but CRP and ESR both elevated. X-ray with progression of likely calcaneal osteomyelitis. Given this foul smell and his complaints believe likely infection has worsened. Again cultures have been sent. Covered with vancomycin, clindamycin, and cefepime for broad coverage including MRSA. Again low suspicion this time on clinical exam for necrotizing fasciitis; he has no pain out of proportion to exam. Given some insulin for his hyperglycemia here and again received a liter of IV fluid. Patient was agreeable with the plan for admission and the hospitalist was consulted. DIAGNOSIS: Hyperglycemia type 1 diabetes, weakness, calcaneal osteomyelitis, diabetic ulceration of the right heel DISPOSITION: Hospitalist will evaluate Patient was agreeable with this plan. Past Med/Surg History Medical History Acute hyperglycemia Acute thoracic back pain Ambulatory dysfunction CKD (chronic kidney disease) COVID-19 COVID-19 Diabetic neuropathy Difficult airway for intubation Glidescope 2012 Dizziness DM type 1 (diabetes mellitus, type 1) [place] frequently History of heart block Patient presented to [facility] 03/2013 for elective L foot I&D. On induction with propofol in OR pt went into 3rd degree HB. Pt intubated and given 1 dose of Epi, which resolved HB but diffuse ST depression remained. Surgery aborted, pt to PACU, where ST segments returned to baseline and pt was extubated. Cardio consulted, echo WNL, no etiology discovered for HB, ST depression felt 2/2 strain from Epi or apnea. No further testing or intervention recommended. History of osteomyelitis Hyperlipidemia Low back pain Osteomyelitis of left foot history of Pulmonary nodule PVD (peripheral vascular disease) Vertigo history of--hypoglycemia Surgical History H/O eye surgery both eyes, corrective lens implant History of colonoscopy 8 years ago S/P amputation of lesser toe "right second and third toe" Family History Brother Diabetes Social History Smoking Status: Never smoker Second Hand Exposure: No; Hx Alcohol Use: Yes Alcohol type: hard liquor Alcohol Intake Frequency: 2-4 x/Month Hx Substance Use: No Preferred Language: Welsh Communication Ability: Effective Matrix Drier Tender Required: No Beliefs That Will Affect Care: None marital status: Single Current Living Situation: Family Current Living Situation Comment: lives with brother current occupational status: retired How many Children do You have: 0 Feels Safe at Home: Yes caffeine: No Assistive Devices: Wheelchair Allergies Allergies Allergy/AdvReac Type Severity Reaction Status Date / Time levofloxacin Allergy Unknown "nervous" Verified 04/29/21 20:50 shrimp AdvReac Unknown NAUSEA Verified 04/29/21 20:50 Home Meds Home Medications Medication Instructions Recorded Confirmed amlodipine 5 mg tablet 5 mg PO QAM 10/19/18 04/29/21 gabapentin 300 mg capsule 600 mg PO BID cap 01/17/21 04/29/21 losartan 25 mg tablet 25 mg PO QAM tab 01/17/21 04/29/21 insulin glargine 100 unit/mL (3 35 unit SUBCUT QAM ml 04/20/21 04/29/21 mL) subcutaneous pen (Lantus Solostar U-100 Insulin) Previous Rx's Medication Instructions Recorded atorvastatin 40 mg tablet 40 mg PO HS #30 tab 07/08/20 fexofenadine 60 mg-pseudoephedrine 1 tab PO BID #14 tab 07/08/20 ER 120 mg tablet,ext.release,12 hr (Merari-D 12 Hour) clopidogrel 75 mg tablet 75 mg PO QAM #30 tab 12/31/20 aspirin 81 mg tablet,delayed 81 mg PO DAILY #30 tab 04/07/21 release (Adult Aspirin Regimen) collagenase clostridium histo. 250 1 applic TOPICAL DAILY 14 Days #30 04/20/21 unit/gram topical ointment (Santyl) g doxycycline hyclate 100 mg tablet 100 mg PO bid 14 Days #28 tab 04/26/21 Results & Data (ED) Vital Signs Vital Signs - 24 hr 04/29/21 18:10 04/29/21 18:13 Temperature 36.9 C 36.9 C Temperature Source Temporal Artery Scan Oral Pulse Rate 71 Respiratory Rate 19 18 Respiratory Effort / Characteristics Non-Labored Spontaneous Respiratory Depth Normal Normal Blood Pressure 101/45 L Blood Pressure [Left Arm] 156/73 H Blood Pressure Mean 63 Blood Pressure Mean [Left Arm] 100 Pulse Oximetry 97 Sepsis Recent Fever Within 48 Hours No Sepsis New/Unexplained Change in Mental Status N/A Sepsis Action Taken by Nursing No Action Required Laboratory Data Result diagrams: 04/29/21 18:37 04/29/21 18:37 Lab Results 04/29/21 04/29/21 04/29/21 Range/Units 18:12 18:37 18:37 WBC 15.23 H (4.8-10.8) K/uL RBC 4.11 L (4.7-6.1) M/uL Hgb 11.9 L (14.0-18.0) g/dL Hct 35.6 L (42-52) % MCV 86.6 (80-100) fL MCH 29.0 (25-34) pg MCHC 33.4 (32-36) g/dL RDW Std Deviation 40.4 (36.4-46.3) fL RDW Coeff of Дмитрий 12.6 (11.5-14.5) % Plt Count 284 (130-400) K/uL MPV 10.8 H (7.4-10.4) fL Immature Gran % (Auto) 0.3 % Neut % (Auto) 91.8 % Lymph % (Auto) 2.2 % [place] % (Auto) 5.5 % Eos % (Auto) 0.1 % Baso % (Auto) 0.1 % Neut # (Auto) 13.98 H (1.4-6.5) K/uL Lymph # (Auto) 0.34 L (1.2-3.4) K/uL [place] # (Auto) 0.84 H (0.11-0.59) K/uL Eos # (Auto) 0.01 (0-0.5) K/uL Baso # (Auto) 0.02 (0-0.2) K/uL Immature Gran # (Auto) 0.04 H (0.00-0.02) K/uL ESR (0-20) mm/hr VBG pH (7.36-7.41) VBG pCO2 (38-50) mmHg VBG pO2 mmHg VBG HCO3 mmol/L VBG O2 Saturation % VBG Base Excess mEq/L Barometric Pressure mm/Hg Sodium 136 (136-145) mmol/L Potassium 4.4 (3.5-5.1) mmol/L Chloride 106 (98-107) mmol/L Carbon Dioxide 23 (21-32) mmol/L Anion Gap 7.0 (3-11) BUN 39 H (7-18) mg/dl Creatinine 1.98 H (0.6-1.4) mg/dl Est Cr Clr Drug Dosing 36.6 ml/min Est GFR ( Amer) 40.5 ml/min Est GFR (Non-Af Amer) 34.9 ml/min BUN/Creatinine Ratio 19.5 (10-20) Glucose 492 H* (70-99) mg/dl POC Glucose 493 H* (70-99) mg/dl Lactate (0.4-2.0) mmol/L Calcium 9.4 (8.5-10.1) mg/dl Magnesium 1.7 L (1.8-2.4) mg/dl Total Bilirubin 0.7 (0.2-1) mg/dl AST 12 L (15-37) U/L ALT 39 (12-78) U/L Alkaline Phosphatase 172 H (45-117) U/L Troponin I < 0.015 (0-0.045) ng/ml C-Reactive Protein 9.58 H (0-0.29) mg/dl Total Protein 7.0 (6.4-8.2) gm/dl Albumin 2.7 L (3.4-5.0) gm/dl Globulin 4.3 H (2.5-4.0) gm/dl Albumin/Globulin Ratio 0.6 L (0.9-2) Beta-Hydroxybutyric Acd 2.16 (0.2-2.81) mg/dl TSH 2.540 (0.300-4.500) uIu/ml COVID-19 Eval Order SARS-CoV-2 (PCR) (Negative) 04/29/21 04/29/21 04/29/21 Range/Units 18:37 19:11 19:11 WBC (4.8-10.8) K/uL RBC (4.7-6.1) M/uL Hgb (14.0-18.0) g/dL Hct (42-52) % MCV (80-100) fL MCH (25-34) pg MCHC (32-36) g/dL RDW Std Deviation (36.4-46.3) fL RDW Coeff of Дмитрий (11.5-14.5) % Plt Count (130-400) K/uL MPV (7.4-10.4) fL Immature Gran % (Auto) % Neut % (Auto) % Lymph % (Auto) % [place] % (Auto) % Eos % (Auto) % Baso % (Auto) % Neut # (Auto) (1.4-6.5) K/uL Lymph # (Auto) (1.2-3.4) K/uL [place] # (Auto) (0.11-0.59) K/uL Eos # (Auto) (0-0.5) K/uL Baso # (Auto) (0-0.2) K/uL Immature Gran # (Auto) (0.00-0.02) K/uL ESR (0-20) mm/hr VBG pH (7.36-7.41) VBG pCO2 (38-50) mmHg VBG pO2 mmHg VBG HCO3 mmol/L VBG O2 Saturation % VBG Base Excess mEq/L Barometric Pressure mm/Hg Sodium (136-145) mmol/L Potassium (3.5-5.1) mmol/L Chloride (98-107) mmol/L Carbon Dioxide (21-32) mmol/L Anion Gap (3-11) BUN (7-18) mg/dl Creatinine (0.6-1.4) mg/dl Est Cr Clr Drug Dosing ml/min Est GFR ( Amer) ml/min Est GFR (Non-Af Amer) ml/min BUN/Creatinine Ratio (10-20) Glucose (70-99) mg/dl POC Glucose (70-99) mg/dl Lactate 1.8 (0.4-2.0) mmol/L Calcium (8.5-10.1) mg/dl Magnesium (1.8-2.4) mg/dl Total Bilirubin (0.2-1) mg/dl AST (15-37) U/L ALT (12-78) U/L Alkaline Phosphatase (45-117) U/L Troponin I (0-0.045) ng/ml C-Reactive Protein (0-0.29) mg/dl Total Protein (6.4-8.2) gm/dl Albumin (3.4-5.0) gm/dl Globulin (2.5-4.0) gm/dl Albumin/Globulin Ratio (0.9-2) Beta-Hydroxybutyric Acd (0.2-2.81) mg/dl TSH (0.300-4.500) uIu/ml COVID-19 Eval Order Covid19 at [facility] SARS-CoV-2 (PCR) NEGATIVE (Negative) 04/29/21 04/29/21 04/29/21 Range/Units 19:22 19:25 20:00 WBC (4.8-10.8) K/uL RBC (4.7-6.1) M/uL Hgb (14.0-18.0) g/dL Hct (42-52) % MCV (80-100) fL MCH (25-34) pg MCHC (32-36) g/dL RDW Std Deviation (36.4-46.3) fL RDW Coeff of Дмитрий (11.5-14.5) % Plt Count (130-400) K/uL MPV (7.4-10.4) fL Immature Gran % (Auto) % Neut % (Auto) % Lymph % (Auto) % [place] % (Auto) % Eos % (Auto) % Baso % (Auto) % Neut # (Auto) (1.4-6.5) K/uL Lymph # (Auto) (1.2-3.4) K/uL [place] # (Auto) (0.11-0.59) K/uL Eos # (Auto) (0-0.5) K/uL Baso # (Auto) (0-0.2) K/uL Immature Gran # (Auto) (0.00-0.02) K/uL ESR 42 H (0-20) mm/hr VBG pH 7.35 L (7.36-7.41) VBG pCO2 45 (38-50) mmHg VBG pO2 22 mmHg VBG HCO3 24 mmol/L VBG O2 Saturation < 60.0 % VBG Base Excess -2.0 mEq/L Barometric Pressure 721.6 mm/Hg Sodium (136-145) mmol/L Potassium (3.5-5.1) mmol/L Chloride (98-107) mmol/L Carbon Dioxide (21-32) mmol/L Anion Gap (3-11) BUN (7-18) mg/dl Creatinine (0.6-1.4) mg/dl Est Cr Clr Drug Dosing ml/min Est GFR ( Amer) ml/min Est GFR (Non-Af Amer) ml/min BUN/Creatinine Ratio (10-20) Glucose (70-99) mg/dl POC Glucose 454 H* (70-99) mg/dl Lactate (0.4-2.0) mmol/L Calcium (8.5-10.1) mg/dl Magnesium (1.8-2.4) mg/dl Total Bilirubin (0.2-1) mg/dl AST (15-37) U/L ALT (12-78) U/L Alkaline Phosphatase (45-117) U/L Troponin I (0-0.045) ng/ml C-Reactive Protein (0-0.29) mg/dl Total Protein (6.4-8.2) gm/dl Albumin (3.4-5.0) gm/dl Globulin (2.5-4.0) gm/dl Albumin/Globulin Ratio (0.9-2) Beta-Hydroxybutyric Acd (0.2-2.81) mg/dl TSH (0.300-4.500) uIu/ml COVID-19 Eval Order SARS-CoV-2 (PCR) (Negative) Administered Medications Discontinued Medications Sodium Chloride (Nss 1000ml) 1,000 mls @ 999 mls/hr IV .[id number] [place] Stop: 04/29/21 19:45 Last Admin: 04/29/21 19:56 Dose: 999 mls/hr Documented by: [id number] Cefepime HCl (Maxipime) 2,000 mg in 20 mls @ 5 mls/min IV NOW STA; Protocol Stop: 04/29/21 19:44 Last Admin: 04/29/21 19:57 Dose: 5 mls/min Documented by: [id number] Vancomycin HCl 1,250 mg/ (Sodium Chloride) 525 mls @ 200 mls/hr IV NOW ONE Stop: 04/29/21 22:18 Last Admin: 04/29/21 21:04 Dose: 200 mls/hr Documented by: [id number] Clindamycin Phosphate 900 mg/ (Dextrose) 56 mls @ 112 mls/hr IV ONE ONE Stop: 04/29/21 20:32 Last Infusion: 04/29/21 21:08 Dose: 0 mls/hr Documented by: [id number] Admin: 04/29/21 20:38 Dose: 112 mls/hr Documented by: [id number] Insulin Human Regular (Novolin-R Insulin Per Unit Charge) 6 units IV NOW STA Stop: 04/29/21 20:03 Last Admin: 04/29/21 20:11 Dose: 6 units Documented by: [id number] Cosigned by: [id number] Imaging Data Radiologist's Impression: Chest X-Ray 04/29/21 18:36 XR chest 1V portable HISTORY: weakness COMPARISON: Chest 01/19/2021. FINDINGS: No pneumothorax. No pleural effusions. The lungs are clear. The heart is normal in size. There are multiple healing mid to lower anterior rib fractures. IMPRESSION: 1. No focal lung consolidations to suggest pneumonia. 2. Multiple healing mid to lower anterior rib fractures. ACT 112: Negative or not required by law. Electronically signed by: Efren Kenney M.D. 04/29/2021 7:36 PM Foot X-Ray 04/29/21 18:39 XR foot RT min 3V routine CLINICAL HISTORY: heel wound, infection COMPARISON STUDY: Right calcaneus 04/19/2021. FINDINGS: Progressive cortical destruction or erosive change within the posterior calcaneus consistent with osteomyelitis. The total area now measures approximately 2.7 cm. There is soft tissue swelling and soft tissue gas within the posterior heel. This could be due to the wound or a gas-forming organism. Amputation of the first, third, fourth toes is again noted. There is an additional skin ulceration within the lateral aspect of the foot at the level the fifth MTP joint. No underlying bony destruction at this location. No acute fractures. Vascular calcifications are noted. IMPRESSION: Progressive osteomyelitis at the calcaneus as described above. There is associated soft tissue swelling and soft tissue gas at the posterior heel. This could be due to the suspected wound/ulceration or a gas-forming organism. ACT 112: Negative or not required by law. Electronically signed by: Efren Kenney M.D. 04/29/2021 7:38 PM Discharge Plan Visit Data Chief Complaint: Hyperglycemia Stated Complaint: HYPERGLYCEMIA ED Provider: Clifton White Discharge Problem: Hyperglycemia due to type 1 diabetes mellitus, Diabetic ulcer of right heel associated with diabetes mellitus due to underlying condition, limited to breakdown of skin, Acute osteomyelitis of right calcaneus, Weakness Patient Disposition: Admitted As Inpatient
[2021-04-29 19:36] LABS: Hematocrit (blood only) 35.6 % (42-52); Hemoglobin 11.9 g/dL (14.0-18.0); Mean Corpuscular Hgb Conc 33.4 g/dL (32-36); Mean Corpuscular Volume 86.6 fL (80-100); Mean Platelet Volume 10.8 fL (7.4-10.4); Platelet Count 284 K/uL (130-400); RDW Coefficient of Variation 12.6 % (11.5-14.5); RDW Standard Deviation 40.4 fL (36.4-46.3); Red Blood Count 4.11 M/uL (4.7-6.1); White Blood Count 15.23 K/uL (4.8-10.8)
--- NOTE | 2021-04-29 19:38 | XRay Report ---
XR chest 1V portable HISTORY: weakness COMPARISON: Chest 01/19/2021. FINDINGS: No pneumothorax. No pleural effusions. The lungs are clear. The heart is normal in size. Th ere are multiple healing mid to lower anterior rib fractures. IMPRESSION: 1. No focal lung consolidations to suggest pneumonia. 2. Multiple healing mid to lower anterior rib fractures. ACT 112: Negative or not required by law. Electronically signed by: Efren Kenney M.D. 04/29/2021 7:36 PM
--- NOTE | 2021-04-29 19:40 | XRay Report ---
XR foot RT min 3V routine CLINICAL HISTORY: heel wound, infection COMPARISON STUDY: Right calcaneus 04/19/2021. FINDINGS: Progressive cortical destruction or erosive change within the posterior calcaneus consisten t with osteomyelitis. The total area now measures approximately 2.7 cm. There is soft tissue swelling and soft tissue gas within the posterior heel. This could be due to the wound or a gas-forming organ ism. Amputation of the first, third, fourth toes is again noted. There is an additional skin ulcerati on within the lateral aspect of the foot at the level the fifth MTP joint. No underlying bony destruc tion at this location. No acute fractures. Vascular calcifications are noted. IMPRESSION: Progressive osteomyelitis at the calcaneus as described above. There is associated soft tissue swelling and soft tissue gas at the posterior heel. This could be due to the suspected wound/u lceration or a gas-forming organism. ACT 112: Negative or not required by law. Electronically signed by: Efren Kenney M.D. 04/29/2021 7:38 PM
[2021-04-29] MEDS ORDERED: VANCOMYCIN CONSULT ACTIVE PRN (19:41)
[2021-04-29] MEDS ORDERED: CEFEPIME 2,000 MG/20 ML VIAL IV STA (19:41)
[2021-04-29] MEDS ORDERED: VANCOMYCIN HCL 1,250 MG in SODIUM CHLORIDE 0.9% 500 ML IV ONE (19:41)
[2021-04-29 19:56] LABS: Alanine Aminotransferase 39 U/L (12-78); Albumin Level 2.7 gm/dl (3.4-5.0); Aspartate Aminotransferase 12 U/L (15-37); BUN Creatinine Ratio 19.5 (10-20); Blood Urea Nitrogen 39 mg/dl (7-18); C Reactive Protein 9.58 mg/dl (0-0.29); Calcium 9.4 mg/dl (8.5-10.1); Carbon Dioxide 23 mmol/L (21-32); Chloride 106 mmol/L (98-107); Creatinine Clr Calc Pharmacy 36.6 ml/min; Est GFR (African American) 40.5 ml/min; Est GFR (Non-African American) 34.9 ml/min; Glucose 492 mg/dl (70-99); Magnesium 1.7 mg/dl (1.8-2.4); Potassium 4.4 mmol/L (3.5-5.1); Sodium 136 mmol/L (136-145)
[2021-04-29 20:02] LABS: Albumin Globulin Ratio 0.6 (0.9-2); Alkaline Phosphatase 172 U/L (45-117); Bilirubin,Total 0.7 mg/dl (0.2-1); Globulin 4.3 gm/dl (2.5-4.0); Troponin I < 0.015 ng/ml (0-0.045)
[2021-04-29] MEDS ORDERED: NovoLIN-R INSULIN PER UNIT CHARGE IV STA (20:02)
[2021-04-29] MEDS ORDERED: CLINDAMYCIN 900 MG in DEXTROSE 5% 50 ML IV ONE (20:03)
[2021-04-29 20:07] LABS: Beta-Hydroxybutyrate 2.16 mg/dl (0.2-2.81)
[2021-04-29 20:24] LABS: Basophils # (auto) 0.02 K/uL (0-0.2); Basophils % (auto) 0.1 %; Eosinophils # (auto) 0.01 K/uL (0-0.5); Eosinophils % (auto) 0.1 %; Immature Granulocytes # (auto) 0.04 K/uL (0.00-0.02); Immature Granulocytes % (auto) 0.3 %; Lymphocytes # (auto) 0.34 K/uL (1.2-3.4); Lymphocytes % (auto) 2.2 %; Monocytes # (auto) 0.84 K/uL (0.11-0.59); Monocytes % (auto) 5.5 %; Neutrophils # (auto) 13.98 K/uL (1.4-6.5); Neutrophils % (auto) 91.8 %
[2021-04-29 20:24] LABS: HCO3 VBG 24 mmol/L; PCO2 VBG 45 mmHg (38-50); PO2 VBG 22 mmHg; pH VBG 7.35 (7.36-7.41)
[2021-04-29 20:26] LABS: Oxygen Saturation VBG < 60.0 %
[2021-04-29] MEDS ORDERED: PIPERACILL/TAZOBAC CONSULT ACTIVE PRN (23:32)
[2021-04-29] MEDS ORDERED: POLYETHYLENE (MIRALAX) 17 GM PACK PO PRN (23:32)
[2021-04-29] MEDS ORDERED: PHARMACY GLYCEMIC MGMT CONSULT PRN (23:32)
[2021-04-29] MEDS ORDERED: NITROGLYCERIN SL 0.4 MG/TAB TAB SL PRN (23:32)
[2021-04-30] MEDS: SODIUM CHLORIDE 0.9% 1000ML 1,000 ML IV SCH ×3 (00:48→17:20)
[2021-04-30] MEDS: INSULIN ASPART 100 UNITS/ML 3 ML PEN SC SCH ×5 (01:04→20:17)
[2021-04-30] MEDS ORDERED: INSULIN HUMAN REGULAR PER UNIT 5 UNITS in SYRINGE 4.95 ML IV STA (01:24)
[2021-04-30] MEDS: PIPERACILLIN/TAZOBACTAM 3.375 GM in DEXTROSE 5% 100 ML IV SCH ×3 (01:44→17:34)
--- NOTE | 2021-04-30 01:47 | History and Physical Report ---
DATE OF ADMISSION: 04/29/2021. CHIEF COMPLAINT: Hyperglycemia and right heel diabetic foot ulcer. HISTORY OF PRESENT ILLNESS: This 65-year-old male with past medical history significant for type 1 diabetes, diabetic neuropathy, hypertension, peripheral vascular disease, diabetic retinopathy, vitreous hemorrhage of the right eye, pseudophakia, trigeminal neuralgia, presents with hyperglycemia. The patient lives with his mother. The patient says he was not feeling well today and brought in here and found to have high blood sugars. He is also having ongoing nonhealing right foot ulcer in the heel region. X-rays done in the ER showing progressive osteomyelitis of the calcaneus, also soft tissue swelling and soft tissue gas of the posterior heel suspected wound ulceration or gas forming organism. The patient is otherwise afebrile. The patient complained of some discomfort in the right foot, but no other complaints. Denies any chest pain, no shortness of breath, no cough, was feeling nauseous earlier, but that improved. No abdominal pain. Appetite is okay. No headache, no blurred visions, no runny nose, no sore throat. Normal bowel and bladder movements. He says he ambulates with a walker. He also had right lower extremity SFA drug- eluting stent placement on 04/07/2021, following with Vascular Surgery and also saw Infectious Disease. Infectious Disease was recommending below-knee amputation. The patient currently follows with Wound Care, on doxycycline. The wound is foul smelling. ALLERGIES: LEVAQUIN AND SHRIMP FLAVOR. PAST MEDICAL HISTORY: As mentioned above. PAST SURGICAL HISTORY: Amputation of the right 3rd toe and part of great toe and second toe, colonoscopy, excision of sebaceous cyst over the right shoulder, I and D of left foot, I and D for abscess of the right shoulder, cataract surgery, partial removal of the eye fluid, tympanostomy tubes. MEDICATIONS: The patient is on amlodipine 5 mg p.o. a.m., aspirin 81 mg p.o. daily, atorvastatin 40 mg p.o. at bedtime, Plavix 75 mg p.o. a.m., Collagenase topical ointment, doxycycline 100 mg p.o. b.i.d., Merari-D 12-hour 1 tablet p.o. b.i.d., gabapentin 600 mg p.o. b.i.d., insulin glargine 35 units subcutaneous a.m., losartan 25 mg p.o. a.m. FAMILY HISTORY: Significant for father has diabetes, hypertension. Brother has diabetes. SOCIAL HISTORY: No smoking. Alcohol social. No drug use. REVIEW OF SYSTEMS: As per HPI. Rest of the review of systems is negative. PHYSICAL EXAMINATION: GENERAL: The patient is of moderate build, not in acute distress. VITAL SIGNS: Temperature 36.9, pulse 111, respiratory rate 24, blood pressure 150/66 and oxygen 97%. HEENT: Pupils equal, round and reactive to light. Oral mucosa moist. NECK: No JVD, no neck masses. CARDIOVASCULAR: S1 and S2 heard. Regular rate and rhythm. No murmur, no gallop. RESPIRATORY SYSTEM: Normal AP diameter. No accessory muscle use. No wheezing, no crackles. ABDOMEN: Soft, bowel sounds present, nontender, no distention. CENTRAL NERVOUS SYSTEM: Cranial nerves II-XII grossly intact, nonfocal. EXTREMITIES: Right foot foul smelling necrotic heel wound seen. LABORATORY DATA: WBC 15.2, hemoglobin 11.9, hematocrit 35.6, platelets 284. ESR 42. Venous blood gas pH 1.35, pCO2 of 45, pO2 22, bicarbonate 24. Sodium 136, potassium 4.4, chloride 106, bicarbonate 23, BUN 39, creatinine 1.98, serum glucose 492. Lactate 1.8, calcium 9.4, magnesium 1.7, total bilirubin 0.7, AST 12, ALT 13, alkaline phosphatase 172. Troponin I less than 0.015. C-reactive protein 9.58. Beta hydroxybutyric acid is 2.16. TSH 2.5. SARS-CoV-2 PCR negative. Foot x-ray, progressive osteomyelitis of the calcaneus region associated soft tissue swelling and soft tissue gas at the posterior heel, this could be due to suspected wound ulceration or gas forming organisms. IMAGING DATA: Chest x-ray, no focal lung consolidation/pneumonia. Multiple healing mid to lower anterior rib fractures. EKG: Normal sinus rhythm at rate of 90. No significant change was found. ASSESSMENT AND PLAN: This is a 65-year-old male presents with hypoglycemia, nonhealing right foot necrotic ulcer. 1. Nonhealing diabetic right heel necrotic ulcer, questionable gas forming organisms. Osteomyelitis. The patient is following with Orthopedics and Vascular Surgery and also ID. If not improving and if there is MRSA in the infection ID recommended below-knee amputation. It seems the patient has not decided about it yet.Notified Orthopedics. Currently placed him on antibiotics, IV vancomycin, clindamycin and Zosyn. The patient may need I and D again. We will keep him n.p.o. after midnight, IV fluids. Monitor in the [employer] tele. 2. Type 1 diabetes. Patient presented with hyperglycemia. Received IV insulin 6 units in the ER. We will closely monitor. As the patient is placed n.p.o., we will place him on Lantus [address] on insulin sliding scale and diabetic glycemic pharmacy consult and closely monitor blood sugars. 3. History of peripheral vascular disease, status post stent in right SFA. Continue statin, Plavix and aspirin. 4. Hypertension. Continue lisinopril, amlodipine . Hold losartan for jhoan.. We will monitor the blood pressure. 5. Acute kidney injury and chronic kidney disease stage III: Baseline creatinine 1.4-1.7, today creatinine 1.9. Getting fluids, avoid nephrotoxic agents. We will follow the repeat labs in a.m. 6. History of hyperlipidemia: Continue statin. 7.. Deep venous thrombosis prophylaxis: Placed him on sequential compression devices for any plan for procedure. DISPOSITION: Admit to [facility]. Level 1 full code. Expect to PT/OT prior to discharge. Social service to help with discharge planning. Job ID: [id number] [id number]
[2021-04-30] MEDS: ACETAMINOPHEN 325 MG TAB PO PRN ×2 (02:50→20:16)
[2021-04-30] MEDS ORDERED: INSULIN ASPART 100 UNITS/ML 3 ML PEN SC SCH (03:00)
[2021-04-30] MEDS ORDERED: MAGNESIUM SULFATE / D5W 1 GM/100 ML BAG IV ONE (03:17)
[2021-04-30] MEDS ORDERED: KETOROLAC TROMETHAMINE 15 MG/ML VIAL IV ONE (03:18)
[2021-04-30 05:55] LABS: Basophils # (auto) 0.03 K/uL (0-0.2); Basophils % (auto) 0.3 %; Hematocrit (blood only) 30.9 % (42-52); Hemoglobin 10.3 g/dL (14.0-18.0); Immature Granulocytes # (auto) 0.03 K/uL (0.00-0.02); Immature Granulocytes % (auto) 0.3 %; Mean Corpuscular Hemoglobin 28.9 pg (25-34); Mean Corpuscular Hgb Conc 33.3 g/dL (32-36); Mean Corpuscular Volume 86.6 fL (80-100); Mean Platelet Volume 10.5 fL (7.4-10.4); Monocytes # (auto) 0.72 K/uL (0.11-0.59); Monocytes % (auto) 7.2 %; Neutrophils # (auto) 8.67 K/uL (1.4-6.5); Neutrophils % (auto) 86.2 %; Platelet Count 219 K/uL (130-400); RDW Coefficient of Variation 12.7 % (11.5-14.5); RDW Standard Deviation 40.8 fL (36.4-46.3); Red Blood Count 3.57 M/uL (4.7-6.1); White Blood Count 10.05 K/uL (4.8-10.8)
[2021-04-30] MEDS: CLINDAMYCIN 600 MG in DEXTROSE 5% 50 ML IV SCH ×3 (06:15→21:52)
[2021-04-30] MEDS: INSULIN GLARGINE SOLOSTAR 100 UNITS/ML 3 ML PEN SC SCH (06:17)
[2021-04-30 06:38] LABS: BUN Creatinine Ratio 18.4 (10-20); Calcium 8.6 mg/dl (8.5-10.1); Creatinine Clr Calc Pharmacy 42.3 ml/min; Est GFR (African American) 47.6 ml/min; Est GFR (Non-African American) 41.1 ml/min; Magnesium 1.8 mg/dl (1.8-2.4); Potassium 4.1 mmol/L (3.5-5.1)
[2021-04-30 06:51] LABS: Beta-Hydroxybutyrate 6.72 mg/dl (0.2-2.81)
--- NOTE | 2021-04-30 07:38 | Hospitalist Progress Note ---
Date of Service April 30, 2021 Assessment & Plan (1) Hyperglycemia due to type 1 diabetes mellitus: (2) Diabetic ulcer of right heel: (3) PAD (peripheral artery disease): (4) Osteomyelitis: Plan: Right heel calcaneal osteomyelitis. Abscess, right heel. 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 This is a 65-year-old male presents with hyperglycemia, nonhealing right foot necrotic ulcer -osteomyelitis and abscess. 1. Nonhealing diabetic right heel necrotic ulcer, questionable gas forming organisms. R heel Osteomyelitis. The patient is following with Orthopedics and Vascular Surgery and also ID. If not improving and if there is MRSA in the infection ID recommended below-knee amputation. It seems the patient has not decided about it yet. Notified Orthopedics. Currently placed him on antibiotics, IV vancomycin, clindamycin and Zosyn. IV fluids. Monitor in the [employer]. Orthopedics consulted - 04/30 - Initial plan was for right below-knee amputation today however due to severe multiple medical comorbidities, severely elevated blood sugar over 340 and concern regarding previous episode of heart block, decision was made between anesthesia team and orthopedics to perform debridement of osteomyelitis with evacuation of abscess and irrigation debridement today. Patient will likely require below-knee amputation after further medical optimization is achieved. PROCEDURE: 1. Right heel debridement of calcaneal osteomyelitis. 2. Incision and drainage of abscess, right heel. 3. Irrigation and debridement diabetic neuropathic ulcer of the heel measuring 6 x 8 x 1 cm. Gram positive Bacteremia April 20, culture from foot positive for staph aureus MRSA (prior to current admission) Blood cultures April 29, positive for gram-positive cocci in chains Culture from the OR, April 30 pending Repeat blood cultures, obtain echocardiogram to rule out endocarditis Will need ID follow up. 2. Type 1 diabetes. Patient presented with hyperglycemia. Diabetic glycemic pharmacy consulted, closely monitor blood sugars. 3. History of peripheral vascular disease, status post stent in right SFA. Continue statin, Plavix and aspirin. 4. Hypertension. Continue lisinopril, amlodipine . Hold losartan for jhoan.. We will monitor the blood pressure. 5. Acute kidney injury and chronic kidney disease stage III: Baseline creatinine 1.4-1.7, creatinine on admission 1.9. Getting fluids, avoid nephrotoxic agents. We will follow the repeat labs 6. History of hyperlipidemia: Continue statin. DVT prophylaxis:SCDs, plan for procedure. DISPOSITION: [facility]. Expect to PT/OT prior to discharge. Social service to help with discharge planning. Code: Full Admission and Anticipated Discharge Date Admission Date: April 29, 2021 Subjective Patient seen in follow-up of osteomyelitis, PAD, right heel ulcer, hyperglycemia Patient seen after coming back from OR (orthopedics for right heel osteomyelitis, and abscess) Currently laying in bed in no acute distress, reports feeling tired No chest pain, shortness of breath, abdominal pain, nausea vomiting Later in the day he reported bacteremia, patient will be continued on IV antibiotics Review of Systems Review of Systems: All systems reviewed & are unremarkable except as noted in Subjective Physical Exam Physical Exam: GENERAL: The patient is of moderate build, not in acute distress. HEENT: NC/AT, EOMI, PERRL, Oral mucosa moist. NECK: No JVD, no neck masses. CARDIOVASCULAR: S1 and S2 heard. Regular rate and rhythm. No murmur, no gallop. RESPIRATORY: Normal AP diameter. No accessory muscle use. No wheezing, no crackles. ABDOMEN: Soft, bowel sounds present, nontender, no distention. NEURO:Awake and alert, however very tired. Able to answer questions appropriately. No facial symmetry, speech fluent, moves extremities EXTREMITIES: Right foot in postop dressings Results & Data Results & Data ([facility]) Vital Signs (Past 12 Hours) Vital Signs Temp Pulse Pulse Resp BP BP Pulse Ox 04/30/21 04:42 37.0 C 04/30/21 04:10 39.5 C H 04/30/21 02:39 39.4 C H 99 H 18 133/65 94 04/30/21 00:38 97 H 04/29/21 23:24 39.0 C H 18 138/70 95 04/29/21 22:00 111 H 24 150/66 H 75 L Laboratory Results 04/30/21 04/30/21 04/30/21 Range/Units 05:52 05:43 05:43 WBC (4.8-10.8) K/uL RBC (4.7-6.1) M/uL Hgb (14.0-18.0) g/dL Hct (42-52) % MCV (80-100) fL MCH (25-34) pg MCHC (32-36) g/dL RDW Std Deviation (36.4-46.3) fL RDW Coeff of Дмитрий (11.5-14.5) % Plt Count (130-400) K/uL MPV (7.4-10.4) fL Immature Gran % (Auto) % Neut % (Auto) % Lymph % (Auto) % [place] % (Auto) % Eos % (Auto) % Baso % (Auto) % Neut # (Auto) (1.4-6.5) K/uL Lymph # (Auto) (1.2-3.4) K/uL [place] # (Auto) (0.11-0.59) K/uL Eos # (Auto) (0-0.5) K/uL Baso # (Auto) (0-0.2) K/uL Immature Gran # (Auto) (0.00-0.02) K/uL ESR (0-20) mm/hr VBG pH (7.36-7.41) VBG pCO2 (38-50) mmHg VBG pO2 mmHg VBG HCO3 mmol/L VBG O2 Saturation % VBG Base Excess mEq/L Barometric Pressure mm/Hg Sodium 141 (136-145) mmol/L Potassium 4.1 (3.5-5.1) mmol/L Chloride 114 H (98-107) mmol/L Carbon Dioxide 18 L (21-32) mmol/L Anion Gap 9.0 (3-11) BUN 32 H (7-18) mg/dl Creatinine 1.73 H (0.6-1.4) mg/dl Est Cr Clr Drug Dosing 42.3 ml/min Est GFR ( Amer) 47.6 ml/min Est GFR (Non-Af Amer) 41.1 ml/min BUN/Creatinine Ratio 18.4 (10-20) Glucose 308 H* (70-99) mg/dl POC Glucose 291 H (70-99) mg/dl Estimat Average Glucose Pending Hemoglobin A1c Pending Lactate (0.4-2.0) mmol/L Calcium 8.6 (8.5-10.1) mg/dl Magnesium 1.8 (1.8-2.4) mg/dl Total Bilirubin (0.2-1) mg/dl AST (15-37) U/L ALT (12-78) U/L Alkaline Phosphatase (45-117) U/L Troponin I (0-0.045) ng/ml C-Reactive Protein (0-0.29) mg/dl Total Protein (6.4-8.2) gm/dl Albumin (3.4-5.0) gm/dl Globulin (2.5-4.0) gm/dl Albumin/Globulin Ratio (0.9-2) Beta-Hydroxybutyric Acd 6.72 H (0.2-2.81) mg/dl TSH (0.300-4.500) uIu/ml COVID-19 Eval Order SARS-CoV-2 (PCR) (Negative) 04/30/21 04/30/21 04/30/21 Range/Units 05:43 02:55 00:54 WBC 10.05 (4.8-10.8) K/uL RBC 3.57 L (4.7-6.1) M/uL Hgb 10.3 L (14.0-18.0) g/dL Hct 30.9 L (42-52) % MCV 86.6 (80-100) fL MCH 28.9 (25-34) pg MCHC 33.3 (32-36) g/dL RDW Std Deviation 40.8 (36.4-46.3) fL RDW Coeff of Дмитрий 12.7 (11.5-14.5) % Plt Count 219 (130-400) K/uL MPV 10.5 H (7.4-10.4) fL Immature Gran % (Auto) 0.3 % Neut % (Auto) 86.2 % Lymph % (Auto) 6.0 % [place] % (Auto) 7.2 % Eos % (Auto) 0.0 % Baso % (Auto) 0.3 % Neut # (Auto) 8.67 H (1.4-6.5) K/uL Lymph # (Auto) 0.60 L (1.2-3.4) K/uL [place] # (Auto) 0.72 H (0.11-0.59) K/uL Eos # (Auto) 0.00 (0-0.5) K/uL Baso # (Auto) 0.03 (0-0.2) K/uL Immature Gran # (Auto) 0.03 H (0.00-0.02) K/uL ESR (0-20) mm/hr VBG pH (7.36-7.41) VBG pCO2 (38-50) mmHg VBG pO2 mmHg VBG HCO3 mmol/L VBG O2 Saturation % VBG Base Excess mEq/L Barometric Pressure mm/Hg Sodium (136-145) mmol/L Potassium (3.5-5.1) mmol/L Chloride (98-107) mmol/L Carbon Dioxide (21-32) mmol/L Anion Gap (3-11) BUN (7-18) mg/dl Creatinine (0.6-1.4) mg/dl Est Cr Clr Drug Dosing ml/min Est GFR ( Amer) ml/min Est GFR (Non-Af Amer) ml/min BUN/Creatinine Ratio (10-20) Glucose (70-99) mg/dl POC Glucose 262 H 313 H* (70-99) mg/dl Estimat Average Glucose Hemoglobin A1c Lactate (0.4-2.0) mmol/L Calcium (8.5-10.1) mg/dl Magnesium (1.8-2.4) mg/dl Total Bilirubin (0.2-1) mg/dl AST (15-37) U/L ALT (12-78) U/L Alkaline Phosphatase (45-117) U/L Troponin I (0-0.045) ng/ml C-Reactive Protein (0-0.29) mg/dl Total Protein (6.4-8.2) gm/dl Albumin (3.4-5.0) gm/dl Globulin (2.5-4.0) gm/dl Albumin/Globulin Ratio (0.9-2) Beta-Hydroxybutyric Acd (0.2-2.81) mg/dl TSH (0.300-4.500) uIu/ml COVID-19 Eval Order SARS-CoV-2 (PCR) (Negative) 04/30/21 04/29/21 04/29/21 Range/Units 00:52 22:45 20:00 WBC (4.8-10.8) K/uL RBC (4.7-6.1) M/uL Hgb (14.0-18.0) g/dL Hct (42-52) % MCV (80-100) fL MCH (25-34) pg MCHC (32-36) g/dL RDW Std Deviation (36.4-46.3) fL RDW Coeff of Дмитрий (11.5-14.5) % Plt Count (130-400) K/uL MPV (7.4-10.4) fL Immature Gran % (Auto) % Neut % (Auto) % Lymph % (Auto) % [place] % (Auto) % Eos % (Auto) % Baso % (Auto) % Neut # (Auto) (1.4-6.5) K/uL Lymph # (Auto) (1.2-3.4) K/uL [place] # (Auto) (0.11-0.59) K/uL Eos # (Auto) (0-0.5) K/uL Baso # (Auto) (0-0.2) K/uL Immature Gran # (Auto) (0.00-0.02) K/uL ESR (0-20) mm/hr VBG pH 7.35 L (7.36-7.41) VBG pCO2 45 (38-50) mmHg VBG pO2 22 mmHg VBG HCO3 24 mmol/L VBG O2 Saturation < 60.0 % VBG Base Excess -2.0 mEq/L Barometric Pressure 721.6 mm/Hg Sodium (136-145) mmol/L Potassium (3.5-5.1) mmol/L Chloride (98-107) mmol/L Carbon Dioxide (21-32) mmol/L Anion Gap (3-11) BUN (7-18) mg/dl Creatinine (0.6-1.4) mg/dl Est Cr Clr Drug Dosing ml/min Est GFR ( Amer) ml/min Est GFR (Non-Af Amer) ml/min BUN/Creatinine Ratio (10-20) Glucose (70-99) mg/dl POC Glucose 327 H* 312 H* (70-99) mg/dl Estimat Average Glucose Hemoglobin A1c Lactate (0.4-2.0) mmol/L Calcium (8.5-10.1) mg/dl Magnesium (1.8-2.4) mg/dl Total Bilirubin (0.2-1) mg/dl AST (15-37) U/L ALT (12-78) U/L Alkaline Phosphatase (45-117) U/L Troponin I (0-0.045) ng/ml C-Reactive Protein (0-0.29) mg/dl Total Protein (6.4-8.2) gm/dl Albumin (3.4-5.0) gm/dl Globulin (2.5-4.0) gm/dl Albumin/Globulin Ratio (0.9-2) Beta-Hydroxybutyric Acd (0.2-2.81) mg/dl TSH (0.300-4.500) uIu/ml COVID-19 Eval Order SARS-CoV-2 (PCR) (Negative) 04/29/21 04/29/21 04/29/21 Range/Units 19:25 19:22 19:11 WBC (4.8-10.8) K/uL RBC (4.7-6.1) M/uL Hgb (14.0-18.0) g/dL Hct (42-52) % MCV (80-100) fL MCH (25-34) pg MCHC (32-36) g/dL RDW Std Deviation (36.4-46.3) fL RDW Coeff of Дмитрий (11.5-14.5) % Plt Count (130-400) K/uL MPV (7.4-10.4) fL Immature Gran % (Auto) % Neut % (Auto) % Lymph % (Auto) % [place] % (Auto) % Eos % (Auto) % Baso % (Auto) % Neut # (Auto) (1.4-6.5) K/uL Lymph # (Auto) (1.2-3.4) K/uL [place] # (Auto) (0.11-0.59) K/uL Eos # (Auto) (0-0.5) K/uL Baso # (Auto) (0-0.2) K/uL Immature Gran # (Auto) (0.00-0.02) K/uL ESR 42 H (0-20) mm/hr VBG pH (7.36-7.41) VBG pCO2 (38-50) mmHg VBG pO2 mmHg VBG HCO3 mmol/L VBG O2 Saturation % VBG Base Excess mEq/L Barometric Pressure mm/Hg Sodium (136-145) mmol/L Potassium (3.5-5.1) mmol/L Chloride (98-107) mmol/L Carbon Dioxide (21-32) mmol/L Anion Gap (3-11) BUN (7-18) mg/dl Creatinine (0.6-1.4) mg/dl Est Cr Clr Drug Dosing ml/min Est GFR ( Amer) ml/min Est GFR (Non-Af Amer) ml/min BUN/Creatinine Ratio (10-20) Glucose (70-99) mg/dl POC Glucose 454 H* (70-99) mg/dl Estimat Average Glucose Hemoglobin A1c Lactate (0.4-2.0) mmol/L Calcium (8.5-10.1) mg/dl Magnesium (1.8-2.4) mg/dl Total Bilirubin (0.2-1) mg/dl AST (15-37) U/L ALT (12-78) U/L Alkaline Phosphatase (45-117) U/L Troponin I (0-0.045) ng/ml C-Reactive Protein (0-0.29) mg/dl Total Protein (6.4-8.2) gm/dl Albumin (3.4-5.0) gm/dl Globulin (2.5-4.0) gm/dl Albumin/Globulin Ratio (0.9-2) Beta-Hydroxybutyric Acd (0.2-2.81) mg/dl TSH (0.300-4.500) uIu/ml COVID-19 Eval Order SARS-CoV-2 (PCR) NEGATIVE (Negative) 04/29/21 04/29/21 04/29/21 Range/Units 19:11 18:37 18:37 WBC (4.8-10.8) K/uL RBC (4.7-6.1) M/uL Hgb (14.0-18.0) g/dL Hct (42-52) % MCV (80-100) fL MCH (25-34) pg MCHC (32-36) g/dL RDW Std Deviation (36.4-46.3) fL RDW Coeff of Дмитрий (11.5-14.5) % Plt Count (130-400) K/uL MPV (7.4-10.4) fL Immature Gran % (Auto) % Neut % (Auto) % Lymph % (Auto) % [place] % (Auto) % Eos % (Auto) % Baso % (Auto) % Neut # (Auto) (1.4-6.5) K/uL Lymph # (Auto) (1.2-3.4) K/uL [place] # (Auto) (0.11-0.59) K/uL Eos # (Auto) (0-0.5) K/uL Baso # (Auto) (0-0.2) K/uL Immature Gran # (Auto) (0.00-0.02) K/uL ESR (0-20) mm/hr VBG pH (7.36-7.41) VBG pCO2 (38-50) mmHg VBG pO2 mmHg VBG HCO3 mmol/L VBG O2 Saturation % VBG Base Excess mEq/L Barometric Pressure mm/Hg Sodium 136 (136-145) mmol/L Potassium 4.4 (3.5-5.1) mmol/L Chloride 106 (98-107) mmol/L Carbon Dioxide 23 (21-32) mmol/L Anion Gap 7.0 (3-11) BUN 39 H (7-18) mg/dl Creatinine 1.98 H (0.6-1.4) mg/dl Est Cr Clr Drug Dosing 36.6 ml/min Est GFR ( Amer) 40.5 ml/min Est GFR (Non-Af Amer) 34.9 ml/min BUN/Creatinine Ratio 19.5 (10-20) Glucose 492 H* (70-99) mg/dl POC Glucose (70-99) mg/dl Estimat Average Glucose Hemoglobin A1c Lactate 1.8 (0.4-2.0) mmol/L Calcium 9.4 (8.5-10.1) mg/dl Magnesium 1.7 L (1.8-2.4) mg/dl Total Bilirubin 0.7 (0.2-1) mg/dl AST 12 L (15-37) U/L ALT 39 (12-78) U/L Alkaline Phosphatase 172 H (45-117) U/L Troponin I < 0.015 (0-0.045) ng/ml C-Reactive Protein 9.58 H (0-0.29) mg/dl Total Protein 7.0 (6.4-8.2) gm/dl Albumin 2.7 L (3.4-5.0) gm/dl Globulin 4.3 H (2.5-4.0) gm/dl Albumin/Globulin Ratio 0.6 L (0.9-2) Beta-Hydroxybutyric Acd 2.16 (0.2-2.81) mg/dl TSH 2.540 (0.300-4.500) uIu/ml COVID-19 Eval Order Covid19 at [facility] SARS-CoV-2 (PCR) (Negative) 04/29/21 04/29/21 Range/Units 18:37 18:12 WBC 15.23 H (4.8-10.8) K/uL RBC 4.11 L (4.7-6.1) M/uL Hgb 11.9 L (14.0-18.0) g/dL Hct 35.6 L (42-52) % MCV 86.6 (80-100) fL MCH 29.0 (25-34) pg MCHC 33.4 (32-36) g/dL RDW Std Deviation 40.4 (36.4-46.3) fL RDW Coeff of Дмитрий 12.6 (11.5-14.5) % Plt Count 284 (130-400) K/uL MPV 10.8 H (7.4-10.4) fL Immature Gran % (Auto) 0.3 % Neut % (Auto) 91.8 % Lymph % (Auto) 2.2 % [place] % (Auto) 5.5 % Eos % (Auto) 0.1 % Baso % (Auto) 0.1 % Neut # (Auto) 13.98 H (1.4-6.5) K/uL Lymph # (Auto) 0.34 L (1.2-3.4) K/uL [place] # (Auto) 0.84 H (0.11-0.59) K/uL Eos # (Auto) 0.01 (0-0.5) K/uL Baso # (Auto) 0.02 (0-0.2) K/uL Immature Gran # (Auto) 0.04 H (0.00-0.02) K/uL ESR (0-20) mm/hr VBG pH (7.36-7.41) VBG pCO2 (38-50) mmHg VBG pO2 mmHg VBG HCO3 mmol/L VBG O2 Saturation % VBG Base Excess mEq/L Barometric Pressure mm/Hg Sodium (136-145) mmol/L Potassium (3.5-5.1) mmol/L Chloride (98-107) mmol/L Carbon Dioxide (21-32) mmol/L Anion Gap (3-11) BUN (7-18) mg/dl Creatinine (0.6-1.4) mg/dl Est Cr Clr Drug Dosing ml/min Est GFR ( Amer) ml/min Est GFR (Non-Af Amer) ml/min BUN/Creatinine Ratio (10-20) Glucose (70-99) mg/dl POC Glucose 493 H* (70-99) mg/dl Estimat Average Glucose Hemoglobin A1c Lactate (0.4-2.0) mmol/L Calcium (8.5-10.1) mg/dl Magnesium (1.8-2.4) mg/dl Total Bilirubin (0.2-1) mg/dl AST (15-37) U/L ALT (12-78) U/L Alkaline Phosphatase (45-117) U/L Troponin I (0-0.045) ng/ml C-Reactive Protein (0-0.29) mg/dl Total Protein (6.4-8.2) gm/dl Albumin (3.4-5.0) gm/dl Globulin (2.5-4.0) gm/dl Albumin/Globulin Ratio (0.9-2) Beta-Hydroxybutyric Acd (0.2-2.81) mg/dl TSH (0.300-4.500) uIu/ml COVID-19 Eval Order SARS-CoV-2 (PCR) (Negative) Medications Administered Current Inpatient Medications Acetaminophen (Acetaminophen 325 Mg Tab) 650 mg PO Q4H PRN PRN Reason: Pain or Fever Stop: 05/29/21 23:31 Last Admin: 04/30/21 02:50 Dose: 650 mg Documented by: Amlodipine Besylate (Amlodipine Besylate 5 Mg Tab) 5 mg PO QAM [place] Stop: 05/30/21 08:59 Aspirin (Aspirin 81 Mg Ectab) 81 mg PO DAILY [place] Stop: 05/30/21 08:59 Atorvastatin Calcium (Atorvastatin 40 Mg Tab) 40 mg PO HS [place] Stop: 05/30/21 20:59 Clopidogrel Bisulfate (Clopidogrel Bisulfate 75 Mg Tab) 75 mg PO QAM [place] Stop: 05/30/21 08:59 Collagenase (Collagenase Oint 30 Gm Tube) 1 appln TOP DAILY [place] Stop: 05/30/21 08:59 Gabapentin (Gabapentin 300 Mg Cap) 600 mg PO BID [facility] Stop: 05/30/21 08:59 Sodium Chloride (Nss 1000ml) 1,000 mls @ 125 mls/hr IV .Q8H [place] Stop: 05/29/21 23:31 Last Admin: 04/30/21 00:48 Dose: 125 mls/hr Documented by: Clindamycin Phosphate 600 mg/ (Dextrose) 54 mls @ 100 mls/hr IV Q8H [facility] Stop: 05/07/21 05:59 Last Admin: 04/30/21 06:15 Dose: 100 mls/hr Documented by: Piperacillin Sod/Tazobactam (Sod 3.375 gm/ Dextrose) 115 mls @ 28.75 mls/hr IV Q8H [facility]; Protocol Stop: 05/07/21 01:59 EST Last Infusion: 04/30/21 06:14 Dose: Infused Documented by: Vancomycin HCl 1,000 mg/ (Sodium Chloride) 270 mls @ 200 mls/hr IV Q24H [facility] Stop: 06/11/21 08:59 Insulin Aspart (Insulin Aspart 100 Units/Ml 3 Ml Pen) 0 units SC Q6 [facility]; Pro tocol Stop: 05/30/21 00:29 Last Admin: 04/30/21 06:18 Dose: 5 units Documented by: Insulin Glargine (Insulin Glargine Solostar 100 Units/Ml 3 Ml Pen) 20 units SC DAILY [facility]; Protocol Stop: 05/30/21 05:59 Last Admin: 04/30/21 06:17 Dose: 20 units Documented by: Losartan Potassium (Losartan Potassium 25 Mg Tab) 25 mg PO QAM [facility] Stop: 05/30/21 08:59 Miscellaneous Information (Vancomycin Consult Active) 1 ea N/A UD PRN PRN Reason: Consult Stop: 05/29/21 19:40 Miscellaneous Information (Piperacill/Tazobac Consult Active) 1 ea N/A UD PRN PRN Reason: Consult Stop: 05/29/21 23:31 Miscellaneous Information (Pharmacy Glycemic Mgmt Consult) 1 ea N/A UD PRN PRN Reason: Consult Stop: 05/29/21 23:31 Nitroglycerin (Nitroglycerin Sl 0.4 Mg/Tab Tab) 0.4 mg SL UD PRN PRN Reason: Chest Pain Stop: 05/29/21 23:31 Polyethylene Glycol (Polyethylene (Miralax) 17 Gm Pack) 17 gm PO DAILY PRN PRN Reason: Constipation Stop: 05/29/21 23:31
--- NOTE | 2021-04-30 07:53 | Electrocardiogram Report ---
Test Reason : Blood Pressure : / mmHG Vent. Rate : 090 BPM Atrial Rate : 090 BPM P-R Int : 160 ms QRS Dur : 070 ms QT Int : 336 ms P-R-T Axes : 043 013 077 degrees QTc Int : 411 ms Normal sinus rhythm Low voltage QRS Borderline ECG When compared with ECG of 19-JAN-2021 13:54, No significant change was found Confirmed by Garrett Prince ([id number]) on 04/30/2021 7:52:44 AM Referred By: REFERRED SELF Confirmed By:Ismael Prince
[2021-04-30] MEDS ORDERED: PSEUDOEPHEDRINE PO SCH (09:00)
[2021-04-30] MEDS ORDERED: FEXOFENADINE PO SCH (09:00)
[2021-04-30] MEDS ORDERED: [UNRECOGNIZED DRUG - OTHER] PO SCH (09:00)
[2021-04-30] MEDS: GABAPENTIN 300 MG CAP PO SCH ×2 (09:13→20:16)
[2021-04-30] MEDS: CLOPIDOGREL BISULFATE 75 MG TAB PO SCH (09:13)
[2021-04-30] MEDS: amLODIPine BESYLATE 5 MG TAB PO SCH (09:13)
[2021-04-30] MEDS: ASPIRIN 81 MG ECTAB PO SCH (09:13)
[2021-04-30] MEDS: COLLAGENASE OINT 30 GM TUBE TOP SCH (09:14)
[2021-04-30] MEDS: VANCOMYCIN HCL 1,000 MG in SODIUM CHLORIDE 0.9% 250 ML IV SCH (09:29)
--- NOTE | 2021-04-30 10:07 | Pharmacy Report ---
Pharmacy Abx Initial Consult - Date of Service April 30, 2021 - Pharmacy Dosing Scope Date of Consult: 04/29/21 Consultation requested by: Dr. Schroeder Pharmacy is consulted to initiate Vancomycin + Zosyn IV dosing therapy, order appropriate labs and adjust drug dose/frequency. - Subjective The patient is a 65 year old M admitted on 04/29/21 21:29. - Objective Height: 5 ft 8 in Weight: 72 kg Vital Signs (Past 12hrs): Vital Signs Temp Pulse Pulse Resp BP BP Pulse Ox 04/30/21 08:12 36.4 C L 75 16 113/65 98 04/30/21 04:42 37.0 C 04/30/21 04:10 39.5 C H 04/30/21 02:39 39.4 C H 99 H 18 133/65 94 04/30/21 00:38 97 H 04/29/21 23:24 39.0 C H 18 138/70 95 04/29/21 22:00 111 H 24 150/66 H 75 L Lab Results (24hrs): Laboratory Tests (24 Hours) 04/30/21 04/30/21 04/29/21 05:43 05:43 19:25 WBC 10.05 Neut # (Auto) 8.67 H ESR 42 H Creatinine 1.73 H Est Cr Clr Drug Dosing 42.3 C-Reactive Protein 04/29/21 04/29/21 18:37 18:37 WBC 15.23 H Neut # (Auto) 13.98 H ESR Creatinine 1.98 H Est Cr Clr Drug Dosing 36.6 C-Reactive Protein 9.58 H Micro Results: 04/29/21 20:00 Aerobic Blood Culture - Pending Blood Anaerobic Blood Culture - Pending 04/29/21 18:37 Aerobic Blood Culture - Pending Blood Anaerobic Blood Culture - Pending 04/29/21 19:11 Gram Stain - Pending Foot,Right Wound Culture - Pending - Assessment & Plan Assessment * 65 year old M admitted for hyperglycemia/osteomyelitis of right calcaneus * Currently follows with Wound Care, on chronic doxy as an outpatient * Wound cultures from 04/20/21 positive for MRSA (R to clindamycin, erythromycin) * Placed on Vanc + Zosyn + Clinda this admission * Repeat wound cultures and blood cultures pending * To OR today for I+D * Infectious Disease/Orthopedics consulted Plan Vancomycin IV * Loading dose: 1250 mg (18 mg/kg) * Maintenance dose: 1000 mg IV (13.9 mg/kg) every 24 hours * This dose is predicted to achieve target AUC/LORI of 400-600 mg/L.hr and may be associated with a 11% risk of nephrotoxicity * AUC/LORI is the preferred PK/PD target for vancomycin * AUC guided dosing is effective and associated with decreased risk of nephrotoxicity compared to traditional trough targets * Trough ordered for: 05/02 @0830 Piperacillin/tazobactam * 3.375 g bolus administered over 30 minutes, then 3.375 g IV extended infusion every 8 hours for CrCl greater than 20 mL/min Clindamycin * 600mg IV q8h * Not a pharmacy consult, but dosed appropriately to provide double anaerobic coverage for osteo in a diabetic patient Pharmacy will continue to follow and will adjust dose/frequency as necessary. Thank you.
--- NOTE | 2021-04-30 11:20 | Anesthesiology Consultation ---
Date of Service April 30, 2021 Assessment & Plan Chart Review Chart Review: Acceptable Risk for Surgery and Patient NOT seen in Pre Admission Testing Consults Requested none ASA ASA4 Proposed Anesthesia Anesthesia Type: General History Surgery Operation Date: 04/30/21 11:30 Proposed Procedures p Incision and Drainage Extremity - Goldy Reynolds DO Height/Weight Height: 5 ft 8 in Weight: 72 kg Allergies Allergy/AdvReac Type Severity Reaction Status Date / Time levofloxacin Allergy Unknown "nervous" Verified 04/29/21 20:50 shrimp AdvReac Unknown NAUSEA Verified 04/29/21 20:50 Medications Home Medications Medication Instructions Recorded Confirmed Last Taken amlodipine 5 mg tablet 5 mg PO QAM 10/19/18 04/29/21 04/29/21 atorvastatin 40 mg tablet 40 mg PO HS #30 tab 07/08/20 04/29/21 07/15/20 fexofenadine 60 mg-pseudoephedrine 1 tab PO BID #14 tab 07/08/20 04/29/21 07/15/20 ER 120 mg tablet,ext.release,12 hr (Merari-D 12 Hour) clopidogrel 75 mg tablet 75 mg PO QAM #30 tab 12/31/20 04/29/21 Unknown gabapentin 300 mg capsule 600 mg PO BID cap 01/17/21 04/29/21 Unknown losartan 25 mg tablet 25 mg PO QAM tab 01/17/21 04/29/21 Unknown aspirin 81 mg tablet,delayed 81 mg PO DAILY #30 tab 04/07/21 04/29/21 04/28/21 release (Adult Aspirin Regimen) collagenase clostridium histo. 250 1 applic TOPICAL DAILY 14 Days #30 04/20/21 04/29/21 04/29/21 unit/gram topical ointment (Santyl) g insulin glargine 100 unit/mL (3 35 unit SUBCUT QAM ml 04/20/21 04/29/21 04/29/21 10:00 mL) subcutaneous pen (Lantus 35 u Solostar U-100 Insulin) doxycycline hyclate 100 mg tablet 100 mg PO bid 14 Days #28 tab 04/26/21 1004/29/21 Active Medications Generic Name Dose Route Start Last Admin Trade Name Freq PRN Reason Stop Dose Admin Acetaminophen 650 mg 04/29/21 23:32 04/30/21 02:50 Acetaminophen 325 Mg Tab PO 05/29/21 23:31 650 mg Q4H PRN Administration Pain or Fever Amlodipine Besylate 5 mg 04/30/21 09:00 04/30/21 09:13 Amlodipine Besylate 5 Mg Tab PO 05/30/21 08:59 5 mg QAM [place] Administration Aspirin 81 mg 04/30/21 09:00 04/30/21 09:13 Aspirin 81 Mg Ectab PO 05/30/21 08:59 81 mg DAILY FLOR[place] Administration Clopidogrel Bisulfate 75 mg 04/30/21 09:00 04/30/21 09:13 Clopidogrel Bisulfate 75 Mg Tab PO 05/30/21 08:59 75 mg QAM [place] Administration Collagenase 1 appln 04/30/21 09:00 04/30/21 09:14 Collagenase Oint 30 Gm Tube TOP 05/30/21 08:59 1 appln DAILY [place] Administration Gabapentin 600 mg 04/30/21 09:00 04/30/21 09:13 Gabapentin 300 Mg Cap PO 05/30/21 08:59 600 mg BID [place] Administration Sodium Chloride 1,000 mls @ 125 mls/hr 04/29/21 23:32 04/30/21 09:29 Nss 1000ml IV 05/29/21 23:31 125 mls/hr .Q8H [place] Administration Clindamycin Phosphate 600 mg/ 54 mls @ 100 mls/hr 04/30/21 06:00 04/30/21 07:00 Dextrose IV 05/07/21 05:59 Infused Q8H [place] Infusion Piperacillin Sod/Tazobactam 115 mls @ 28.75 mls/hr 04/30/21 02:00 04/30/21 09:29 Sod 3.375 gm/ Dextrose IV 05/07/21 01:59 EST 28.8 mls/hr Q8H FLROENCE Administration Protocol Vancomycin HCl 1,000 mg/ 270 mls @ 200 mls/hr 04/30/21 09:00 04/30/21 11:17 Sodium Chloride IV 06/11/21 08:59 Infused Q24H [place] Titration Insulin Aspart 0 units 04/30/21 00:30 04/30/21 06:18 Insulin Aspart 100 Units/Ml 3 Ml Pen SC 05/30/21 00:29 5 units Q6 [place] Administration Protocol Insulin Glargine 20 units 04/30/21 06:00 04/30/21 06:17 Insulin Glargine Solostar 100 Units/Ml 3 Ml Pen SC 05/30/21 05:59 20 units DAILY [place] Administration Protocol Past Medical History Medical History Acute hyperglycemia Acute thoracic back pain Ambulatory dysfunction CKD (chronic kidney disease) COVID-19 COVID-19 Diabetic neuropathy Difficult airway for intubation Glidescope 2012 Dizziness DM type 1 (diabetes mellitus, type 1) [place] frequently History of heart block Patient presented to [facility] 03/2013 for elective L foot I&D. On induction with propofol in OR pt went into 3rd degree HB. Pt intubated and given 1 dose of Epi, which resolved HB but diffuse ST depression remained. Surgery aborted, pt to PACU, where ST segments returned to baseline and pt was extubated. Cardio consulted, echo WNL, no etiology discovered for HB, ST depression felt 2/2 strain from Epi or apnea. No further testing or intervention recommended. History of osteomyelitis Hyperlipidemia Low back pain Osteomyelitis of left foot history of Pulmonary nodule PVD (peripheral vascular disease) Vertigo history of--hypoglycemia Exercise / Class Metabolic Activity III < 4 Walking/Shop/Light housework Past Family History Family History Brother Diabetes Past Surgical History Surgical History H/O eye surgery both eyes, corrective lens implant History of colonoscopy 8 years ago S/P amputation of lesser toe "right second and third toe" Past Anesthesia History No Hx of Anesthesia Complications and No Family Hx of Anesthesia Complications History of PONV No Hx of PONV and No Hx of Motion Sickness Social History Smoking Status: Never smoker Hx Alcohol Use: Yes Alcohol type: hard liquor alcohol intake frequency: a few times a month Hx Substance Use: No substance use type: does not use Physical Exam Vital Signs Last Vital Signs Temp 36.4 C L 04/30/21 08:12 Pulse 75 04/30/21 08:12 Resp 16 04/30/21 08:12 BP 113/65 04/30/21 08:12 Pulse Ox 98 04/30/21 08:12 Testing Laboratory Results 04/30/21 05:43 04/30/21 05:43 04/30/21 04/30/21 04/30/21 05:52 02:55 00:54 POC Glucose 291 H 262 H 313 H* 04/30/21 00:52 POC Glucose 327 H* Electrocardiogram Date: 04/29/21 Findings: + NSR @ (at 90;low voltage QRS) Chest X-Ray Date: 04/29/21 Findings: + NAD and + other (Mid-lower anter. multiple healing rib fractures) Echocardiogram Date: 12/29/20 EF: 60% LV Function: normal RWMA: + none Other Findings: + LVH (mild) and + diastolic dysfunction (grade 1) Valvular Disease: + no significant valvular disease
--- NOTE | 2021-04-30 11:23 | Pharmacy Report ---
Pharmacy Glycemic Short Note 2 - Date of Service April 30, 2021 - Glycemic Short BSG Results (Last 24 hours): 04/29/21 04/29/21 04/29/21 18:12 18:37 19:22 Glucose 492 H* POC Glucose 493 H* 454 H* 04/29/21 04/30/21 04/30/21 22:45 00:52 00:54 Glucose POC Glucose 312 H* 327 H* 313 H* 04/30/21 04/30/21 04/30/21 02:55 05:43 05:52 Glucose 308 H* POC Glucose 262 H 291 H OUTPATIENT ANTIDIABETIC REGIMEN: * Lantus 35 units SQ qAM * A1c pending ASSESSMENT: * 65 yo T1DM admitted with nonhealing diabetic right hell necrotic ulcer, osteomyelitis, and hyperglycemia. * He was given two IV insulin boluses last evening plus Lantus 20 units this morning. I suspect conservative Lantus dose was selected due to NPO status and decreased basal insulin needs during December 2020 admission. However, patient remains hyperglycemia and AM labs are trending towards possible DKA. * Patient was taken to the OR for surgical debridement, I&D and possible right BKA. Will start IV insulin infusion upon transfer back to the floor. Will overlap with SQ insulin. PLAN FOR INPATIENT GLYCEMIC CONTROL: * Basal insulin * Lantus 20 units SQ x 1 (0600) * Start IV insulin infusion * goal range: 110 - 180 mg/dL * may discontinue when BSG is < 180 mg/dL x 2 AND infusion rate is < 1 unit/hr * Bolus insulin * NovoLog per scale ACHS or Q6hrs while NPO * Goal Range: -- * Correction Factor: -- per insulin infusion calc * Nutritional / Prandial insulin: -- per insulin infusion calc PLAN FOR DISCHARGE: * tbd
--- NOTE | 2021-04-30 11:52 | Consultation Report ---
ORTHOPEDIC PHYSICIAN LABORER [facility] [employer] CONSULT CHIEF COMPLAINT: Chronic, nonhealing ulcer, right heel. HISTORY OF PRESENT ILLNESS: The patient is a 65-year-old male known to us from multiple other proble ms and procedures about his bilateral lower extremities. He has had a chronic, nonhealing ulcer, rig ht heel. He had a recent vascular procedure. He has been seeing wound care. He recently saw [facility]. He was admitted to the hospital last evening and orthopedics was consulted f or further definitive care of his right heel. Of note, at his recent infectious disease visit, the robles barber did recommend probable BKA as a definitive procedure as his recent x-ray demonstrated calcaneal osteomyelitis and his recent wound culture MRSA. PHYSICAL EXAMINATION: Currently, the patient is lying in bed, states he has not felt well, but has n o significant pain in the right lower extremity. The patient has an approximately 5 x 7 cm wound wit h black eschar posterior heel. This is malodorous. He has other scars and is missing several toes o n this foot due to previous surgeries. ASSESSMENT: Chronic, nonhealing ulcer, right heel with calcaneal osteomyelitis and MRSA. PLAN: Discussed with the patient. Discussed possible surgical debridement and continued antibiotics versus BKA. The patient states he is interested in a BKA as this would be a more definitive procedu re. I told him I would talk to Dr. Reynolds and he will discuss this more with him and likely proceed to the operating room today for BKA if indicated. Job ID: [id number]
--- NOTE | 2021-04-30 12:01 | History & Physical Bridge Note ---
Date of Service April 30, 2021 History & Physical Bridge Note I have examined the patient, reviewed the History & Physical and in the interval since the performance of the History & Physical I have noted the following changes of clinical significance: After lengthy discussion with the patient and noting the severity of right lower extremity calcaneal osteomyelitis, patient would like to pursue right below-knee amputation today.
[2021-04-30] MEDS ORDERED: LIDOCAINE 2% 2 ML VIAL/AMP(20MG/ML) INFIL ONE (12:06)
[2021-04-30] MEDS ORDERED: PROPOFOL IV EMULSION 10 MG/ML 20 ML VIAL IV ONE (12:06)
[2021-04-30] MEDS ORDERED: ONDANSETRON INJ 2 MG/ML 2 ML VIAL ONE (12:06)
[2021-04-30] MEDS ORDERED: fentaNYL citrate 100 MCG/2 ML VIAL ONE (12:07)
[2021-04-30] MEDS ORDERED: MIDAZOLAM HCL 1 MG/ML 2ML VIAL ONE (12:07)
[2021-04-30] MEDS ORDERED: BUPIVACAINE 0.5 % 5 MG/1 ML MPF 30ML VIAL ONE (12:12)
[2021-04-30] MEDS ORDERED: ROPIVACAINE 0.5% 5 MG/ML 30 ML VIAL ONE (12:48)
[2021-04-30] MEDS ORDERED: FLUMAZENIL 0.1 MG/1 ML 10 ML VIAL IV PRN (13:04)
[2021-04-30] MEDS ORDERED: PROMETHAZINE HCL 12.5 MG in SODIUM CHLORIDE 0.9% 50 ML IV PRN (13:04)
[2021-04-30] MEDS ORDERED: NALOXONE HCL 0.4 MG/1 ML VIAL/CARP IV PRN (13:04)
[2021-04-30] MEDS ORDERED: fentaNYL citrate 100 MCG/2 ML VIAL IV PRN (13:04)
[2021-04-30] MEDS ORDERED: LABETALOL HCL IV 5 MG/ML 20ML IV PRN (13:04)
[2021-04-30] MEDS ORDERED: ATROPINE SULFATE 0.1 MG/ML 10ML SYR IV PRN (13:04)
[2021-04-30] MEDS ORDERED: ONDANSETRON INJ 2 MG/ML 2 ML VIAL IV PRN (13:04)
[2021-04-30] MEDS ORDERED: ePHEDrine sulfate 50 MG/ML AMP IV PRN (13:04)
[2021-04-30] MEDS ORDERED: INSULIN HUMAN REGULAR PER UNIT 15 UNITS in SYRINGE 14.85 ML IV ONE (13:15)
--- NOTE | 2021-04-30 14:01 | Post Operative Brief Note ---
Immediate Post Op Note v1 Date of Surgery April 30, 2021 Pre & Post Diagnosis Operation Date: 04/30/21 11:30 Pre-Op Diagnosis: Chronic osteomyelitis right calcaneus, nonhealing diabetic neuropathic ulcer 6 cm x 8 cm x 1 cm right heel, abscess right heel, diabetic neuropathy, peripheral vascular disease Post-Op Diagnosis: Chronic osteomyelitis right calcaneus, nonhealing diabetic neuropathic ulcer 6 cm x 8 cm x 1 cm right heel, abscess right heel, diabetic neuropathy, peripheral vascular disease I identified the patient and participated in the time-out.: Yes Procedure Operation Date: 04/30/21 11:30 Actual Procedures p Debridement osteomyelitis right Calcaneus, incision and drainage with evacu ation abscess right heel, irrigation and debridement heel diabetic neuropathic ulcer 6 cm x 8 cm x 1 cm - Goldy Reynolds DO Surgeon Goldy Reynolds DO Vascular Nurse Jarocho gil PA-C Estimated Blood Loss 2 Findings Consistent with Post-Op Diagnosis Specimens Aerobic, anaerobic, Gram stain abscess right heel Calcaneal bone for pathologic assessment Drains Other (1/2 inch iodoform gauze packing x2) Complications none Disposition Accompanied Patient To Recovery: No
--- NOTE | 2021-04-30 14:04 | Communication Note ---
Date of Service: April 30, 2021 Initial plan was for right below-knee amputation today however due to severe multiple medical comorbidities, severely elevated blood sugar over 340 and co ncern regarding previous episode of heart block, decision was made between anesthesia team and orthopedics to perform debridement of osteomyelitis with evacuation of abscess and irrigation debridement today. Patient will likely require below-knee amputation after further medical optimization is achieved.
[2021-04-30] MEDS ORDERED: STAT IV Infusion **Titration per Protocol STA ×3 (14:46→16:01)
[2021-04-30] MEDS ORDERED: PENDING 1/2NSS+20mEq KCL IVF SCH (15:00)
[2021-04-30] MEDS ORDERED: PENDING D5 1/2NS+20mEq KCL IVF SCH (15:00)
--- NOTE | 2021-04-30 15:14 | Anesthesiology Progress Note ---
Date of Service April 30, 2021 Anesthesia Post Procedure Vital Signs Vital Signs: Temp Pulse Pulse Pulse Resp BP BP 04/30/21 15:13 68 16 108/45 L 04/30/21 15:03 36.9 C 68 15 100/44 L 04/30/21 14:59 109/47 L 04/30/21 14:53 66 15 96/43 L 04/30/21 14:44 95/52 L 04/30/21 14:43 74 14 86/50 L 04/30/21 14:33 67 16 92/43 L 04/30/21 14:23 71 16 97/52 L 04/30/21 14:13 73 17 100/49 L 04/30/21 14:03 71 17 84/46 L 04/30/21 13:53 36.2 C L 72 20 92/46 L 04/30/21 11:51 37.1 C 76 16 04/30/21 08:12 36.4 C L 75 16 04/30/21 06:17 76 04/30/21 04:42 37.0 C 04/30/21 04:10 39.5 C H 04/30/21 02:39 39.4 C H 99 H 18 04/30/21 00:38 97 H 04/29/21 23:24 39.0 C H 18 04/29/21 22:00 111 H 24 150/66 H 04/29/21 18:13 36.9 C 18 156/73 H 04/29/21 18:10 36.9 C 71 19 101/45 L BP Pulse Ox 04/30/21 15:13 100 04/30/21 15:03 99 04/30/21 14:59 04/30/21 14:53 98 04/30/21 14:44 04/30/21 14:43 96 04/30/21 14:33 98 04/30/21 14:23 100 04/30/21 14:13 100 04/30/21 14:03 100 04/30/21 13:53 100 04/30/21 11:51 114/66 98 04/30/21 08:12 113/65 98 04/30/21 06:17 04/30/21 04:42 04/30/21 04:10 04/30/21 02:39 133/65 94 04/30/21 00:38 04/29/21 23:24 138/70 95 04/29/21 22:00 75 L 04/29/21 18:13 97 04/29/21 18:10 Pain Intensity Left Foot: Pain Intensity: 5 Transfer of Care Handoff Completed per policy Notes Mental Status: alert / awake / arousable Patient Amnestic to Procedure: Yes Nausea / Vomiting: adequately controlled Pain: adequately controlled Airway Patency, RR, SpO2: stable & adequate BP & HR: stable & adequate Hydration State: stable & adequate Anesthetic Complications: no major complications apparent
[2021-04-30] MEDS ORDERED: DEXTROSE 50% 50 ML SYRINGE IV PRN (16:00)
[2021-04-30] MEDS ORDERED: INSULIN HUMAN REGULAR BOLUS IV ONE (16:00)
[2021-04-30] MEDS ORDERED: CARBOHYDRATES FOR HYPOGLYCEMIA PO PRN (16:00)
[2021-04-30] MEDS ORDERED: GLUCOSE 10 TABS/TUBE PO PRN (16:00)
[2021-04-30] MEDS ORDERED: GLUCOSE 40% GEL 15 GM TUBE PO PRN (16:00)
[2021-04-30] MEDS ORDERED: GLUCAGON FOR INJ 1 MG VIAL IM PRN (16:00)
[2021-04-30 17:04] LABS: BUN Creatinine Ratio 17.8 (10-20); Calcium 8.5 mg/dl (8.5-10.1); Creatinine Clr Calc Pharmacy 39.3 ml/min; Est GFR (African American) 43.6 ml/min; Est GFR (Non-African American) 37.7 ml/min; Magnesium 1.9 mg/dl (1.8-2.4); Phosphorus 2.5 mg/dl (2.5-4.9)
[2021-04-30] MEDS: INSULIN REGULAR 250 UNITS in SODIUM CHLORIDE 0.9% 247.5 ML IV SCH (17:24)
[2021-04-30] MEDS: ATORVASTATIN 40 MG TAB PO SCH (20:17)
--- NOTE | 2021-04-30 20:44 | Operative Report (OR) ---
DATE OF PROCEDURE: 04/30/2021. PREOPERATIVE DIAGNOSES: 1. Right heel calcaneal osteomyelitis. 2. Abscess, right heel. 3. 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 POSTOPERATIVE DIAGNOSES: 1. Right heel calcaneal osteomyelitis. 2. Abscess, right heel. 3. 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 PROCEDURE: 1. Right heel debridement of calcaneal osteomyelitis. 2. Incision and drainage of abscess, right heel. 3. Irrigation and debridement diabetic neuropathic ulcer of the heel measuring 6 x 8 x 1 cm. SURGEON: Goldy Reynolds DO. TERMINOLOGIST: Jarocho Owen PA-C who was present for patient positioning, sterile prep and drape, manag ement of retractors and instruments. He was present through the critical portions of the case includi ng wound closure, application of sterile dressing and transport of the patient to recovery. ANESTHESIA: [facility]. SPECIMENS: 1. Aerobic, anaerobic, Gram stain right heel abscess. 2. Calcaneal bone for pathological assessment. DRAINS: Iodoform gauze 1/2 inch x2, right heel. COMPLICATIONS: None. BLOOD LOSS: 2 mL. PERTINENT HISTORY: This is a 65-year-old gentleman well known to the orthopedic service presents wit h worsened ulceration, foul odor and abscess with evidence of osteomyelitis per advanced imaging. Th e patient had been engaging conservative management for his right lower extremity for several years. Recently developed redness, swelling, pain and malaise with elevated blood sugars over the last gin ral days. Initially, the patient was advocating for below-knee amputation. However, due to the miti gating circumstances related to worsened generalized state due to his multiple medical comorbidities including blood sugar over 340 and previous history of heart block decided to perform a debridement u nder sedation only today. The patient understood the concerns and risks and opted for procedure as i ndicated. All potential risks, benefits, complications, alternatives, rehab, potential for incomplete relief sy mptoms, need for further surgery, DVT, PE, , persistent pain, swelling, scarring, weakness, neur ovascular injury, wound complications, need for further amputation was discussed with the patient. T he patient decided to proceed with procedure as indicated. DESCRIPTION OF PROCEDURE: The patient was taken to the operative suite and placed supine on the oper ating room table. After review of consent and identification of proper operative site. The patient was sedated. Right lower extremity was then sterilely prepped and draped in usual fashion, elevated and partially exsanguinated with a 4-inch Esmarch bandage, and an Esmarch tourniquet applied over himanshu rile surgical towel at the level of the ankle to mitigate blood loss. Next, proximal partial regiona l nerve block was performed with approximately 25 mL of 0.5% Marcaine plain just inferior to the leve l of the lateral medial malleoli of the ankle. Next, after surgical timeout was performed, a #15 blade scalpel was used to sharply debride the 6 x 8 x 1 cm diabetic neuropathic ulceration with full-thickness skin necrosis. After the necrotic foul s melling pad was excised and passed off as specimen noted to be an abscess fluid pocket. This was the n opened with a 15 blade scalpel down to the level of bone. Abscess fluid was then cultured and sent for specimen for aerobic, anaerobic, Gram stain. Next, the portions of the necrotic heel pad were th en sharply excised with 15-blade scalpel and a rongeur. There was some limited amount of tissue, whi ch appeared viable. Next, the small fenestrations within the heel pad, the calcaneal bone was then p robed and noted to be markedly softened consistent with chronic osteomyelitis. Rongeur and curette w ere then used to aggressively curettage and resect the osteomyelitic portions of the calcaneus and th altagracia were sent for pathological assessment. Next, pulsatile lavage was then used to irrigate the abscess fluid pocket until clear as well as the heel pad and osteomyelitic areas of the calcaneal bone 3 liters with Ancef additive. Next, after thi s was completed, top gloves and top sheet were changed and then 1/2 inch iodoform gauze packing was p laced in 2 separate sites within the right heel to discharge and drainage from the infected ulceratio n and calcaneal osteomyelitis. Next, a sterile compressive dressing was applied consisting of Adapti c, sterile 4 x 4s, ABD pad, Webril, and 6-inch Kolton wrap. The tourniquet was released. The patient w as awakened and taken to recovery in stable condition. Job ID: [id number]
[2021-04-30 20:49] LABS: BUN Creatinine Ratio 16.2 (10-20); Calcium 8.7 mg/dl (8.5-10.1); Creatinine Clr Calc Pharmacy 36.6 ml/min; Est GFR (Non-African American) 34.5 ml/min; Magnesium 1.8 mg/dl (1.8-2.4); Potassium 3.9 mmol/L (3.5-5.1)
[2021-04-30] MEDS: D5W AND 1/2NSS + 20MEQ KCL 20 MEQ/1,000 ML BAG IV SCH (21:07)
[2021-04-30 21:09] LABS: Phosphorus 1.4 mg/dl (2.5-4.9)
[2021-04-30] MEDS ORDERED: SODIUM PHOSPHATE 3 MMOL/1 ML INFUSION IV STA (21:16)
[2021-04-30] MEDS ORDERED: SODIUM PHOSPHATE 30 MMOL in SODIUM CHLORIDE 0.9% 500 ML IV ONE (21:30)
[2021-04-30] MEDS ORDERED: SODIUM CHLORIDE 0.9% 500 ML IV SCH (23:00)
[2021-05-01 00:49] LABS: BUN Creatinine Ratio 17.1 (10-20); Creatinine Clr Calc Pharmacy 38.3 ml/min; Est GFR (African American) 42.3 ml/min; Est GFR (Non-African American) 36.5 ml/min; Magnesium 1.6 mg/dl (1.8-2.4)
[2021-05-01 00:50] LABS: Phosphorus 2.2 mg/dl (2.5-4.9)
[2021-05-01] MEDS: PIPERACILLIN/TAZOBACTAM 3.375 GM in DEXTROSE 5% 100 ML IV SCH ×3 (01:48→22:50)
[2021-05-01 04:33] LABS: BUN Creatinine Ratio 17.7 (10-20); Calcium 7.6 mg/dl (8.5-10.1); Creatinine Clr Calc Pharmacy 40.4 ml/min; Est GFR (African American) 45.1 ml/min; Est GFR (Non-African American) 38.9 ml/min; Magnesium 1.7 mg/dl (1.8-2.4); Potassium 3.9 mmol/L (3.5-5.1)
[2021-05-01 04:38] LABS: Phosphorus 4.3 mg/dl (2.5-4.9)
[2021-05-01] MEDS: D5W AND 1/2NSS + 20MEQ KCL 20 MEQ/1,000 ML BAG IV SCH (05:08)
[2021-05-01] MEDS: CLINDAMYCIN 600 MG in DEXTROSE 5% 50 ML IV SCH ×3 (05:38→22:50)
[2021-05-01] MEDS: ASPIRIN 81 MG ECTAB PO SCH (08:03)
[2021-05-01] MEDS: CLOPIDOGREL BISULFATE 75 MG TAB PO SCH (08:03)
[2021-05-01] MEDS: amLODIPine BESYLATE 5 MG TAB PO SCH (08:03)
[2021-05-01] MEDS: GABAPENTIN 300 MG CAP PO SCH ×2 (08:04→21:42)
[2021-05-01] MEDS: INSULIN GLARGINE SOLOSTAR 100 UNITS/ML 3 ML PEN SC SCH (08:04)
[2021-05-01] MEDS: INSULIN ASPART 100 UNITS/ML 3 ML PEN SC SCH ×4 (08:05→21:36)
[2021-05-01] MEDS: COLLAGENASE OINT 30 GM TUBE TOP SCH (08:07)
[2021-05-01] MEDS: VANCOMYCIN HCL 1,000 MG in SODIUM CHLORIDE 0.9% 250 ML IV SCH (08:14)
[2021-05-01 08:43] LABS: BUN Creatinine Ratio 16.8 (10-20); Calcium 8.5 mg/dl (8.5-10.1); Creatinine Clr Calc Pharmacy 43.5 ml/min; Est GFR (African American) 49.4 ml/min; Est GFR (Non-African American) 42.6 ml/min; Magnesium 1.9 mg/dl (1.8-2.4); Potassium 3.9 mmol/L (3.5-5.1)
[2021-05-01 08:45] LABS: Estimated Average Glucose 177 mg/dl; Hemoglobin A1C 7.8 % (4.5-5.6)
--- NOTE | 2021-05-01 08:55 | Hospitalist Progress Note ---
Date of Service May 01, 2021 Assessment & Plan (1) Hyperglycemia due to type 1 diabetes mellitus: (2) Diabetic ulcer of right heel: (3) PAD (peripheral artery disease): (4) Osteomyelitis: Plan: Right heel calcaneal osteomyelitis. Abscess, right heel. 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 Sepsis POA, patient febrile, elevated white blood cell count, hypotension Sepsis in the setting of gram-negative bacteremia, right heel ulcer/abscess, osteomyelitis This is a 65-year-old male presents with hyperglycemia, nonhealing right foot necrotic ulcer -osteomyelitis and abscess. 1. Nonhealing diabetic right heel necrotic ulcer, questionable gas forming organisms. R heel Osteomyelitis. The patient is following with Orthopedics and Vascular Surgery and also ID. If not improving and if there is MRSA in the infection ID recommended below-knee amputation. It seems the patient has not decided about it yet. Notified Orthopedics. Currently placed him on antibiotics, IV vancomycin, clindamycin and Zosyn. IV fluids. Monitor in the [employer] tele. Orthopedics consulted - 04/30 - Initial plan was for right below-knee amputation today however due to severe multiple medical comorbidities, severely elevated blood sugar over 340 and concern regarding previous episode of heart block, decision was made between anesthesia team and orthopedics to perform debridement of osteomyelitis with evacuation of abscess and irrigation debridement today. Patient will likely require below-knee amputation after further medical optimization is achieved. PROCEDURE: 1. Right heel debridement of calcaneal osteomyelitis. 2. Incision and drainage of abscess, right heel. 3. Irrigation and debridement diabetic neuropathic ulcer of the heel measuring 6 x 8 x 1 cm. Gram positive Bacteremia April 20, culture from foot positive for staph aureus MRSA (prior to current admission) Blood cultures April 29, positive for gram-positive cocci in chains Culture from the OR (foot), April 30 pending Repeat blood cultures, obtain echocardiogram to rule out endocarditis Currently placed him on antibiotics, IV vancomycin, clindamycin and Zosyn. Will need ID consult and follow up. 2. Type 1 diabetes. Patient presented with hyperglycemia. Diabetic glycemic pharmacy consulted, closely monitor blood sugars. 3. History of peripheral vascular disease, status post stent in right SFA. Continue statin, Plavix and aspirin. 4. Hypertension. Continue lisinopril, amlodipine . Hold losartan for jhoan.. We will monitor the blood pressure. 5. Acute kidney injury and chronic kidney disease stage III: Baseline creatinine 1.4-1.7, creatinine on admission 1.9. Current Cr 1.7 Getting fluids, avoid nephrotoxic agents. Continue to monitor renal function. 6. History of hyperlipidemia: Continue statin. DVT prophylaxis:SCDs, s/p OR DISPOSITION: med tele. Expect to PT/OT prior to discharge. Social service to help with discharge planning. Code: Full Admission and Anticipated Discharge Date Admission Date: April 29, 2021 Subjective Patient seen in follow-up of osteomyelitis, PAD, right heel ulcer, hyperglycemia Patient is s/p Debridement osteomyelitis right Calcaneus, evacuation abscess, irrigation and debridement heel ulcer w/ Dr. Reynolds Currently laying in bed in no acute distress No chest pain, shortness of breath, abdominal pain, nausea vomiting Reports some pain in his right foot Bacteremia Review of Systems Review of Systems: All systems reviewed & are unremarkable except as noted in Subjective Physical Exam Physical Exam: GENERAL: The patient is of moderate build, not in acute distress. HEENT: NC/AT, EOMI, PERRL, Oral mucosa moist. NECK: No JVD, no neck masses. CARDIOVASCULAR: S1 and S2 heard. Regular rate and rhythm. No murmur, no gallop. RESPIRATORY: Normal AP diameter. No accessory muscle use. No wheezing, no crackles. ABDOMEN: Soft, bowel sounds present, nontender, no distention. NEURO:Awake and alert, able to answer simple questions appropriately. No facial asymmetry, speech fluent, moves extremities EXTREMITIES: Right foot in postop dressings Results & Data Results & Data ([facility]) Vital Signs (Past 12 Hours) Vital Signs Temp Pulse Pulse Pulse Resp BP BP 05/01/21 08:39 70 05/01/21 07:53 36.6 C 78 18 130/72 05/01/21 03:24 37.2 C 76 18 117/70 05/01/21 00:17 81 04/30/21 22:33 38.3 C H 102 H 18 94/55 L 04/30/21 21:09 38 C H Pulse Ox 05/01/21 08:39 05/01/21 07:53 94 05/01/21 03:24 98 05/01/21 00:17 04/30/21 22:33 96 04/30/21 21:09 Laboratory Results 05/01/21 05/01/21 05/01/21 Range/Units 08:09 08:09 07:01 VBG pH 7.33 L (7.36-7.41) Sodium 143 (136-145) mmol/L Potassium 3.9 (3.5-5.1) mmol/L Chloride 116 H (98-107) mmol/L Carbon Dioxide 18 L (21-32) mmol/L Anion Gap 9.0 (3-11) BUN 28 H (7-18) mg/dl Creatinine 1.68 H (0.6-1.4) mg/dl Est Cr Clr Drug Dosing 43.5 ml/min Est GFR ( Amer) 49.4 ml/min Est GFR (Non-Af Amer) 42.6 ml/min BUN/Creatinine Ratio 16.8 (10-20) Glucose 155 H (70-99) mg/dl POC Glucose 147 H (70-99) mg/dl Estimat Average Glucose mg/dl Hemoglobin A1c (4.5-5.6) % Calcium 8.5 (8.5-10.1) mg/dl Phosphorus Pending (2.5-4.9) mg/dl Magnesium 1.9 (1.8-2.4) mg/dl 05/01/21 05/01/21 05/01/21 Range/Units 04:59 04:04 04:04 VBG pH 7.34 L (7.36-7.41) Sodium 143 (136-145) mmol/L Potassium 3.9 (3.5-5.1) mmol/L Chloride 117 H (98-107) mmol/L Carbon Dioxide 20 L (21-32) mmol/L Anion Gap 6.0 (3-11) BUN 32 H (7-18) mg/dl Creatinine 1.81 H (0.6-1.4) mg/dl Est Cr Clr Drug Dosing 40.4 ml/min Est GFR ( Amer) 45.1 ml/min Est GFR (Non-Af Amer) 38.9 ml/min BUN/Creatinine Ratio 17.7 (10-20) Glucose 126 H (70-99) mg/dl POC Glucose 145 H (70-99) mg/dl Estimat Average Glucose mg/dl Hemoglobin A1c (4.5-5.6) % Calcium 7.6 L (8.5-10.1) mg/dl Phosphorus 4.3 D (2.5-4.9) mg/dl Magnesium 1.7 L (1.8-2.4) mg/dl 05/01/21 05/01/21 05/01/21 Range/Units 03:04 02:00 00:56 VBG pH (7.36-7.41) Sodium (136-145) mmol/L Potassium (3.5-5.1) mmol/L Chloride (98-107) mmol/L Carbon Dioxide (21-32) mmol/L Anion Gap (3-11) BUN (7-18) mg/dl Creatinine (0.6-1.4) mg/dl Est Cr Clr Drug Dosing ml/min Est GFR ( Amer) ml/min Est GFR (Non-Af Amer) ml/min BUN/Creatinine Ratio (10-20) Glucose (70-99) mg/dl POC Glucose 128 H 109 H 96 (70-99) mg/dl Estimat Average Glucose mg/dl Hemoglobin A1c (4.5-5.6) % Calcium (8.5-10.1) mg/dl Phosphorus (2.5-4.9) mg/dl Magnesium (1.8-2.4) mg/dl 05/01/21 05/01/21 05/01/21 Range/Units 00:26 00:26 00:00 VBG pH 7.36 (7.36-7.41) Sodium 144 (136-145) mmol/L Potassium 4.0 (3.5-5.1) mmol/L Chloride 116 H (98-107) mmol/L Carbon Dioxide 19 L (21-32) mmol/L Anion Gap 9.0 (3-11) BUN 33 H (7-18) mg/dl Creatinine 1.91 H (0.6-1.4) mg/dl Est Cr Clr Drug Dosing 38.3 ml/min Est GFR ( Amer) 42.3 ml/min Est GFR (Non-Af Amer) 36.5 ml/min BUN/Creatinine Ratio 17.1 (10-20) Glucose 93 (70-99) mg/dl POC Glucose 92 (70-99) mg/dl Estimat Average Glucose mg/dl Hemoglobin A1c (4.5-5.6) % Calcium 8.0 L (8.5-10.1) mg/dl Phosphorus 2.2 L (2.5-4.9) mg/dl Magnesium 1.6 L (1.8-2.4) mg/dl 04/30/21 04/30/21 04/30/21 Range/Units 23:06 21:24 20:24 VBG pH (7.36-7.41) Sodium (136-145) mmol/L Potassium (3.5-5.1) mmol/L Chloride (98-107) mmol/L Carbon Dioxide (21-32) mmol/L Anion Gap (3-11) BUN (7-18) mg/dl Creatinine (0.6-1.4) mg/dl Est Cr Clr Drug Dosing ml/min Est GFR ( Amer) ml/min Est GFR (Non-Af Amer) ml/min BUN/Creatinine Ratio (10-20) Glucose (70-99) mg/dl POC Glucose 101 H 111 H 170 H (70-99) mg/dl Estimat Average Glucose mg/dl Hemoglobin A1c (4.5-5.6) % Calcium (8.5-10.1) mg/dl Phosphorus (2.5-4.9) mg/dl Magnesium (1.8-2.4) mg/dl 04/30/21 04/30/21 04/30/21 Range/Units 20:13 20:09 19:20 VBG pH 7.35 L (7.36-7.41) Sodium 144 (136-145) mmol/L Potassium 3.9 (3.5-5.1) mmol/L Chloride 114 H (98-107) mmol/L Carbon Dioxide 21 (21-32) mmol/L Anion Gap 9.0 (3-11) BUN 32 H (7-18) mg/dl Creatinine 2.00 H (0.6-1.4) mg/dl Est Cr Clr Drug Dosing 36.6 ml/min Est GFR ( Amer) 40.0 ml/min Est GFR (Non-Af Amer) 34.5 ml/min BUN/Creatinine Ratio 16.2 (10-20) Glucose 170 H (70-99) mg/dl POC Glucose 188 H (70-99) mg/dl Estimat Average Glucose mg/dl Hemoglobin A1c (4.5-5.6) % Calcium 8.7 (8.5-10.1) mg/dl Phosphorus 1.4 L* D (2.5-4.9) mg/dl Magnesium 1.8 (1.8-2.4) mg/dl 04/30/21 04/30/21 04/30/21 Range/Units 18:14 16:28 16:28 VBG pH 7.33 L (7.36-7.41) Sodium 142 (136-145) mmol/L Potassium 4.0 (3.5-5.1) mmol/L Chloride 112 H (98-107) mmol/L Carbon Dioxide 20 L (21-32) mmol/L Anion Gap 10.0 (3-11) BUN 33 H (7-18) mg/dl Creatinine 1.86 H (0.6-1.4) mg/dl Est Cr Clr Drug Dosing 39.3 ml/min Est GFR ( Amer) 43.6 ml/min Est GFR (Non-Af Amer) 37.7 ml/min BUN/Creatinine Ratio 17.8 (10-20) Glucose 287 H (70-99) mg/dl POC Glucose 226 H (70-99) mg/dl Estimat Average Glucose mg/dl Hemoglobin A1c (4.5-5.6) % Calcium 8.5 (8.5-10.1) mg/dl Phosphorus 2.5 (2.5-4.9) mg/dl Magnesium 1.9 (1.8-2.4) mg/dl 04/30/21 04/30/21 04/30/21 Range/Units 15:48 15:46 14:01 VBG pH (7.36-7.41) Sodium (136-145) mmol/L Potassium (3.5-5.1) mmol/L Chloride (98-107) mmol/L Carbon Dioxide (21-32) mmol/L Anion Gap (3-11) BUN (7-18) mg/dl Creatinine (0.6-1.4) mg/dl Est Cr Clr Drug Dosing ml/min Est GFR ( Amer) ml/min Est GFR (Non-Af Amer) ml/min BUN/Creatinine Ratio (10-20) Glucose (70-99) mg/dl POC Glucose 244 H 299 H 288 H (70-99) mg/dl Estimat Average Glucose mg/dl Hemoglobin A1c (4.5-5.6) % Calcium (8.5-10.1) mg/dl Phosphorus (2.5-4.9) mg/dl Magnesium (1.8-2.4) mg/dl 04/30/21 04/30/21 04/30/21 Range/Units 13:58 12:48 05:43 VBG pH (7.36-7.41) Sodium (136-145) mmol/L Potassium (3.5-5.1) mmol/L Chloride (98-107) mmol/L Carbon Dioxide (21-32) mmol/L Anion Gap (3-11) BUN (7-18) mg/dl Creatinine (0.6-1.4) mg/dl Est Cr Clr Drug Dosing ml/min Est GFR ( Amer) ml/min Est GFR (Non-Af Amer) ml/min BUN/Creatinine Ratio (10-20) Glucose (70-99) mg/dl POC Glucose 344 H* 346 H* (70-99) mg/dl Estimat Average Glucose 177 mg/dl Hemoglobin A1c 7.8 H (4.5-5.6) % Calcium (8.5-10.1) mg/dl Phosphorus (2.5-4.9) mg/dl Magnesium (1.8-2.4) mg/dl Medications Administered Current Inpatient Medications Acetaminophen (Acetaminophen 325 Mg Tab) 650 mg PO Q4H PRN PRN Reason: Pain or Fever Stop: 05/29/21 23:31 Last Admin: 04/30/21 20:16 Dose: 650 mg Documented by: Amlodipine Besylate (Amlodipine Besylate 5 Mg Tab) [facility] Stop: 05/30/21 08:59 Last Admin: 05/01/21 08:03 Dose: 5 mg Documented by: Aspirin (Aspirin 81 Mg Ectab) 81 mg PO DAILY [facility] Stop: 05/30/21 08:59 Last Admin: 05/01/21 08:03 Dose: 81 mg Documented by: Atorvastatin Calcium (Atorvastatin 40 Mg Tab) 40 mg PO HS [facility] Stop: 05/30/21 20:59 Last Admin: 04/30/21 20:17 Dose: 40 mg Documented by: Clopidogrel Bisulfate (Clopidogrel Bisulfate 75 Mg Tab) 75 mg PO QAM [facility] Stop: 05/30/21 08:59 Last Admin: 05/01/21 08:03 Dose: 75 mg Documented by: Collagenase (Collagenase Oint 30 Gm Tube) 1 appln TOP DAILY [facility] Stop: 05/30/21 08:59 Last Admin: 05/01/21 08:07 Dose: Not Given Documented by: Dextrose (Dextrose 50% 50 Ml Syringe) 25 - 50 ml IV UD PRN; Protocol PRN Reason: Hypoglycemia Protocol Stop: 05/30/21 15:59 Gabapentin (Gabapentin 300 Mg Cap) 600 mg PO BID [place] Stop: 05/30/21 08:59 Last Admin: 05/01/21 08:04 Dose: 600 mg Documented by: Glucagon (Glucagon For Inj 1 Mg Vial) 1 mg IM UD PRN; Protocol PRN Reason: Hypoglycemia Protocol Stop: 05/30/21 15:59 Glucose (Glucose 40% Gel 15 Gm Tube) 15 - 30 gm PO UD PRN; Protocol PRN Reason: Hypoglycemia Protocol Stop: 05/30/21 15:59 Glucose (Glucose 10 Tabs/Tube) 4 - 8 tabs PO UD PRN; Protocol PRN Reason: Hypoglycemia Protocol Stop: 05/30/21 15:59 Clindamycin Phosphate 600 mg/ (Dextrose) 54 mls @ 100 mls/hr IV Q8H [place] Stop: 05/07/21 05:59 Last Infusion: 05/01/21 06:14 Dose: Infused Documented by: Piperacillin Sod/Tazobactam (Sod 3.375 gm/ Dextrose) 115 mls @ 28.75 mls/hr IV Q8H [facility]; Protocol Stop: 05/07/21 01:59 EST Last Infusion: 05/01/21 06:14 Dose: Infused Documented by: Vancomycin HCl 1,000 mg/ (Sodium Chloride) 270 mls @ 200 mls/hr IV Q24H [place] Stop: 06/11/21 08:59 Last Admin: 05/01/21 08:14 Dose: 200 mls/hr Documented by: Insulin Human Regular 250 (units/ Sodium Chloride) 250 mls @ 1.6 mls/hr IV .Q24H [facility]; Protocol Stop: 05/30/21 15:59 Last Titration: 05/01/21 05:00 Dose: 1.6 unit/hr, 1.6 mls/hr Documented by: Insulin Aspart (Insulin Aspart 100 Units/Ml 3 Ml Pen) 0 units SC ACHS [facility] Stop: 05/30/21 16:29 Last Admin: 05/01/21 08:05 Dose: 4 units Documented by: Insulin Glargine (Insulin Glargine Solostar 100 Units/Ml 3 Ml Pen) 20 units SC DAILY [place]; Protocol Stop: 05/30/21 05:59 Last Admin: 05/01/21 08:04 Dose: 20 units Documented by: Losartan Potassium (Losartan Potassium 25 Mg Tab) 25 mg PO QAM [place] Stop: 05/30/21 08:59 Miscellaneous (Carbohydrates For Hypoglycemia ) 15 - 30 gm PO UD PRN PRN Reason: Hypoglycemia Treatment Stop: 05/30/21 15:59 Miscellaneous (Insulin Drip - Stop Order) 1 ea N/A QS [place] Stop: 05/02/21 00:01 Miscellaneous Information (Vancomycin Consult Active) 1 ea N/A UD PRN PRN Reason: Consult Stop: 05/29/21 19:40 Miscellaneous Information (Piperacill/Tazobac Consult Active) 1 ea N/A UD PRN PRN Reason: Consult Stop: 05/29/21 23:31 Miscellaneous Information (Pharmacy Glycemic Mgmt Consult) 1 ea N/A UD PRN PRN Reason: Consult Stop: 05/29/21 23:31 Nitroglycerin (Nitroglycerin Sl 0.4 Mg/Tab Tab) 0.4 mg SL UD PRN PRN Reason: Chest Pain Stop: 05/29/21 23:31 Polyethylene Glycol (Polyethylene (Miralax) 17 Gm Pack) 17 gm PO DAILY PRN PRN Reason: Constipation Stop: 05/29/21 23:31
[2021-05-01 08:59] LABS: Phosphorus 3.5 mg/dl (2.5-4.9)
--- NOTE | 2021-05-01 09:25 | Pharmacy Report ---
Pharmacy Glycemic Short Note 2 - Date of Service May 01, 2021 - Glycemic Short BSG Results (Last 24 hours): 04/30/21 04/30/21 04/30/21 12:48 13:58 14:01 Glucose POC Glucose 346 H* 344 H* 288 H 04/30/21 04/30/21 04/30/21 15:46 15:48 16:28 Glucose 287 H POC Glucose 299 H 244 H 04/30/21 04/30/21 04/30/21 18:14 19:20 20:09 Glucose 170 H POC Glucose 226 H 188 H 04/30/21 04/30/21 04/30/21 20:24 21:24 23:06 Glucose POC Glucose 170 H 111 H 101 H 05/01/21 05/01/21 05/01/21 00:00 00:26 00:56 Glucose 93 POC Glucose 92 96 05/01/21 05/01/21 05/01/21 02:00 03:04 04:04 Glucose 126 H POC Glucose 109 H 128 H 05/01/21 05/01/21 05/01/21 04:59 07:01 08:09 Glucose 155 H POC Glucose 145 H 147 H 05/01/21 08:57 Glucose POC Glucose 219 H OUTPATIENT ANTIDIABETIC REGIMEN: * Lantus 35 units SQ qAM * A1c pending ASSESSMENT: 05/01 * Insulin drip continued overnight. D5W fluids added last night. BSG's in or below goal range since 2099. Anion gap and CO2 wnl. Drip running at 1.6 units/hr. Fluids currently as D5W /2 NS w KCl 20 mEq/L @ 125 mL/hr as of this AM * Discussed w Dr. Mya MICHELLE to transition off drip and change fluids to NS @ 100 mL/hr * Will maintain same Lantus dose as drip is running at a low rate and D5W infusion to stop. * Additional Lantus added at 1330 as insulin drip rates were trending up * OK to stop drip once BSG's in goal range x2 checks and drip rate less than 1 unit/hr 04/30 * 65 yo T1DM admitted with nonhealing diabetic right hell necrotic ulcer, osteomyelitis, and hyperglycemia. * He was given two IV insulin boluses last evening plus Lantus 20 units this morning. I suspect conservative Lantus dose was selected due to NPO status and decreased basal insulin needs during December 2020 admission. However, patient remains hyperglycemia and AM labs are trending towards possible DKA. * Patient was taken to the OR for surgical debridement, I&D and possible right BKA. Will start IV insulin infusion upon transfer back to the floor. Will overlap with SQ insulin. PLAN FOR INPATIENT GLYCEMIC CONTROL: * Basal insulin * Lantus 20 units SQ this AM. Additional 10 units x1 now * Continue IV insulin infusion for now, but start transition attempt * goal range: 110 - 180 mg/dL * may discontinue when BSG is < 180 mg/dL x 2 AND infusion rate is < 1 unit/hr * Bolus insulin * 1 unit insulin for every 6 g CHO consumed PLAN FOR DISCHARGE: * tbd
[2021-05-01] MEDS: SODIUM CHLORIDE 0.9% 1000ML 1,000 ML IV SCH ×2 (09:44→19:50)
[2021-05-01] MEDS ORDERED: CEFEPIME 2,000 MG in SYRINGE 0 ML IV SCH (10:00)
[2021-05-01 13:08] LABS: BUN Creatinine Ratio 16.8 (10-20); Calcium 8.5 mg/dl (8.5-10.1); Creatinine Clr Calc Pharmacy 44.6 ml/min; Est GFR (African American) 50.8 ml/min; Est GFR (Non-African American) 43.8 ml/min; Magnesium 1.8 mg/dl (1.8-2.4); Potassium 4.3 mmol/L (3.5-5.1)
[2021-05-01 13:10] LABS: Phosphorus 2.7 mg/dl (2.5-4.9)
[2021-05-01] MEDS ORDERED: INSULIN GLARGINE SOLOSTAR 100 UNITS/ML 3 ML PEN SC ONE (13:30)
[2021-05-01] MEDS ORDERED: PIPERACILL/TAZOBAC CONSULT ACTIVE PRN (14:36)
[2021-05-01 14:52] LABS: Appearance Urine Cloudy (Clear); Bacteria Urine Automated Negative (Negative); Bilirubin Urine Negative (Negative); Blood Urine Negative (Negative); Color Urine Yellow; Glucose Urine UA Negative (Negative); Ketones Urine Trace (Negative); Leukocyte Esterase Urine Negative (Negative); Nitrite Urine Negative (Negative); Protein Urine 1+ (Negative); RBC Urine Automated 0-4 /hpf (0-4); Specific Gravity Urine 1.021 (1.000-1.030); Urobilinogen Urine Negative (Negative)
[2021-05-01] MEDS: INSULIN REGULAR 250 UNITS in SODIUM CHLORIDE 0.9% 247.5 ML IV SCH (16:40)
--- NOTE | 2021-05-01 19:17 | Orthopedic Progress Note ---
Date of Service May 01, 2021 Assessment & Plan (1) Acute osteomyelitis of right calcaneus: Plan: POD #1 s/p1. Right heel debridement of calcaneal osteomyelitis. 2. Incision and drainage of abscess, right heel. 3. Irrigation and debridement diabetic neuropathic ulcer of the heel measuring 6 x 8 x 1 cm Dressing kept in place today. Plan for dressing change tomorrow. When the patient is optimized medically, will plan for right BKA. D/C planning--uncertain at this time. (2) Diabetic ulcer of right heel: Admission and Anticipated Discharge Date Admission Date: April 29, 2021 Subjective No complaints of the right foot. States that his blood sugars have been high so medicine is working to improve them so he can proceed with a right BKA. Physical Exam Constitutional: WD/WN, vitals as above no acute distress Musculoskeletal: Right foot: dressing C/D/I. Dressing kept in place today. Neurologic: + abnormal touch/pain/proprioception Psychiatric: A+Ox3, euthymic affect Speech: normal rate/rhythm/volume of speech Results & Data ([facility]) Vital Signs (Past 12 Hours) Vital Signs Temp Pulse Pulse Resp BP Pulse Ox 05/01/21 15:26 36.9 C 74 18 121/77 98 05/01/21 15:07 76 05/01/21 11:10 37.1 C 79 18 116/75 98 05/01/21 08:39 70 05/01/21 07:53 36.6 C 78 18 130/72 94
[2021-05-01] MEDS: ATORVASTATIN 40 MG TAB PO SCH (21:42)
[2021-05-01] MEDS: ADVANCED PROBIOTIC 1250 MG CAPSULE PO SCH (21:43)
[2021-05-02] MEDS: INSULIN ASPART 100 UNITS/ML 3 ML PEN SC SCH ×6 (01:10→21:32)
[2021-05-02] MEDS: ACETAMINOPHEN 325 MG TAB PO PRN ×3 (01:22→18:29)
[2021-05-02] MEDS: CLINDAMYCIN 600 MG in DEXTROSE 5% 50 ML IV SCH ×3 (06:13→22:51)
[2021-05-02] MEDS: SODIUM CHLORIDE 0.9% 1000ML 1,000 ML IV SCH ×2 (06:13→16:20)
[2021-05-02] MEDS: PIPERACILLIN/TAZOBACTAM 3.375 GM in DEXTROSE 5% 100 ML IV SCH ×3 (06:14→22:51)
[2021-05-02] MEDS ORDERED: INSULIN GLARGINE SOLOSTAR 100 UNITS/ML 3 ML PEN SC ONE (08:30)
[2021-05-02] MEDS ORDERED: VANCOMYCIN TROUGH ONE (08:30)
[2021-05-02 08:37] LABS: Hematocrit (blood only) 30.9 % (42-52); Hemoglobin 10.3 g/dL (14.0-18.0); Mean Corpuscular Hemoglobin 28.6 pg (25-34); Mean Corpuscular Hgb Conc 33.3 g/dL (32-36); Mean Corpuscular Volume 85.8 fL (80-100); Mean Platelet Volume 10.3 fL (7.4-10.4); Platelet Count 206 K/uL (130-400); RDW Coefficient of Variation 13.1 % (11.5-14.5); RDW Standard Deviation 41.3 fL (36.4-46.3); White Blood Count 5.26 K/uL (4.8-10.8)
--- NOTE | 2021-05-02 08:46 | Pharmacy Report ---
Pharmacy Glycemic Short Note 2 - Date of Service May 02, 2021 - Glycemic Short BSG Results (Last 24 hours): 05/01/21 05/01/21 05/01/21 08:09 08:57 10:02 Glucose 155 H POC Glucose 219 H 280 H 05/01/21 05/01/21 05/01/21 11:04 11:58 12:21 Glucose 241 H POC Glucose 237 H 224 H 05/01/21 05/01/21 05/01/21 12:58 14:11 15:00 Glucose POC Glucose 254 H 210 H 218 H 05/01/21 05/01/21 05/01/21 16:01 17:00 18:06 Glucose POC Glucose 179 H 153 H 170 H 05/01/21 05/01/21 05/01/21 19:04 21:09 22:37 Glucose POC Glucose 165 H 106 H 77 05/01/21 05/02/21 05/02/21 23:06 00:07 04:07 Glucose POC Glucose 118 H 120 H 129 H 05/02/21 07:59 Glucose POC Glucose 141 H OUTPATIENT ANTIDIABETIC REGIMEN: * Lantus 35 units SQ qAM * A1c 7.8% on 04/30/21 ASSESSMENT: 05/02 * Insulin drip successfully discontinued yesterday evening, with a very slight trend up in BSG's since then up to 141 mg/dL this AM * Will continue the same total daily Lantus dose yesterday as a one-time dose this AM * Will continue Novolog at slightly tighter parameters than prior to drip initiation 05/01 * Insulin drip continued overnight. D5W fluids added last night. BSG's in or below goal range since 2099. Anion gap and CO2 wnl. Drip running at 1.6 units/hr. Fluids currently as D5W 07/02 NS w KCl 20 mEq/L @ 125 mL/hr as of this AM * Discussed w Dr. Mya MICHELLE to transition off drip and change fluids to NS @ 100 mL/hr * Will maintain same Lantus dose as drip is running at a low rate and D5W infusion to stop. * Additional Lantus added at 1330 as insulin drip rates were trending up * OK to stop drip once BSG's in goal range x2 checks and drip rate less than 1 unit/hr 04/30 * 65 yo T1DM admitted with nonhealing diabetic right hell necrotic ulcer, osteomyelitis, and hyperglycemia. * He was given two IV insulin boluses last evening plus Lantus 20 units this morning. I suspect conservative Lantus dose was selected due to NPO status and decreased basal insulin needs during December 2020 admission. However, patient remains hyperglycemia and AM labs are trending towards possible DKA. * Patient was taken to the OR for surgical debridement, I&D and possible right BKA. Will start IV insulin infusion upon transfer back to the floor. Will overlap with SQ insulin. PLAN FOR INPATIENT GLYCEMIC CONTROL: * Basal insulin * Lantus 30 units SQ this AM * Bolus insulin * Goal range: 110-140 mg/dL * Correction factor: 20 mg/dL/unit * Carb ratio: 6 g CHO/unit PLAN FOR DISCHARGE: * tbd
[2021-05-02] MEDS: GABAPENTIN 300 MG CAP PO SCH ×2 (08:53→21:30)
[2021-05-02] MEDS: ADVANCED PROBIOTIC 1250 MG CAPSULE PO SCH ×2 (08:53→21:31)
[2021-05-02] MEDS: amLODIPine BESYLATE 5 MG TAB PO SCH (08:53)
[2021-05-02] MEDS: COLLAGENASE OINT 30 GM TUBE TOP SCH (08:54)
[2021-05-02] MEDS: CLOPIDOGREL BISULFATE 75 MG TAB PO SCH (08:54)
[2021-05-02] MEDS: ASPIRIN 81 MG ECTAB PO SCH (08:54)
[2021-05-02] MEDS: VANCOMYCIN HCL 1,000 MG in SODIUM CHLORIDE 0.9% 250 ML IV SCH (09:26)
[2021-05-02] MEDS ORDERED: oxyCODONE HCL IR 5 MG TAB (IMMEDIATE RELEASE) PO PRN (09:37)
--- NOTE | 2021-05-02 15:06 | Pharmacy Report ---
Pharmacy Abx Dose Short Note - Date of Service May 02, 2021 - Assessment & Plan Assessment * 65 year old M receiving Zosyn, vancomycin, clindamycin for treatment of infected diabetic R heel ulcer * ID recommended discontinuing Zosyn and clindamycin, and continuing vanco with duration dependent on whether or not the patient receives a BKA, but this was before blood cultures became positive with E. faecalis * Renal function continues to gradually improve Vancomycin * Goal AUC 400-600 mcg/mL/hr * Trough of 11.1 mcg/mL is associated with a steady state AUC of 307 mcg/mL/hr, which is below goal * Will increase vancomycin with dose based on [employer] software and obtain trough prior to the 4th overall dose Plan * Increase vancomycin to 750 mg IV q12h * Trough 05/04 @ 0830 Pharmacy will continue to follow and will adjust dose/frequency as necessary. Thank you.
--- NOTE | 2021-05-02 16:08 | Hospitalist Progress Note ---
Date of Service May 02, 2021 Assessment & Plan (1) Hyperglycemia due to type 1 diabetes mellitus: (2) Diabetic ulcer of right heel: (3) PAD (peripheral artery disease): (4) Osteomyelitis: Plan: Right heel calcaneal osteomyelitis. Abscess, right heel. 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 Sepsis POA, patient febrile, elevated white blood cell count, hypotension Sepsis in the setting of gram-negative bacteremia, right heel ulcer/abscess, osteomyelitis This is a 65-year-old male presents with hyperglycemia, nonhealing right foot necrotic ulcer -osteomyelitis and abscess. 1. Nonhealing diabetic right heel necrotic ulcer, questionable gas forming organisms. R heel Osteomyelitis. The patient is following with Orthopedics and Vascular Surgery and also ID. If not improving and if there is MRSA in the infection ID recommended below-knee amputation. It seems the patient has not decided about it yet. Notified Orthopedics. Currently placed him on antibiotics, IV vancomycin, clindamycin and Zosyn. IV fluids. Monitor in the [id number] tele. Orthopedics consulted - 04/30 - Initial plan was for right below-knee amputation today however due to severe multiple medical comorbidities, severely elevated blood sugar over 340 and concern regarding previous episode of heart block, decision was made between anesthesia team and orthopedics to perform debridement of osteomyelitis with evacuation of abscess and irrigation debridement today. Patient will likely require below-knee amputation after further medical optimization is achieved. PROCEDURE: 1. Right heel debridement of calcaneal osteomyelitis. 2. Incision and drainage of abscess, right heel. 3. Irrigation and debridement diabetic neuropathic ulcer of the heel measuring 6 x 8 x 1 cm. Gram positive Bacteremia April 20, culture from foot positive for staph aureus MRSA (prior to current admission) Blood cultures April 29, positive for gram-positive cocci in chains Culture from the OR (foot), April 30 pending Repeat blood cultures, obtain echocardiogram to rule out endocarditis Currently placed him on antibiotics, IV vancomycin, clindamycin and Zosyn. Will need ID consult and follow up. Echo - no signs of vegetation ID consulted - recommend to stop zosyn and clinda however contacted by pharmacy that cultures were not finalized at the time of consultation. Will need to clarify their recommendations. Per ortho - likely plan for BKA once hyperglycemia resolved / pt medically optimized 2. Type 1 diabetes. Patient presented with hyperglycemia. Diabetic glycemic pharmacy consulted, closely monitor blood sugars. 3. History of peripheral vascular disease, status post stent in right SFA. Continue statin, Plavix and aspirin. 4. Hypertension. Continue lisinopril, amlodipine . Hold losartan for jhoan.. We will monitor the blood pressure. 5. Acute kidney injury and chronic kidney disease stage III: Baseline creatinine 1.4-1.7, creatinine on admission 1.9. Current Cr 1.7 Getting fluids, avoid nephrotoxic agents. Continue to monitor renal function. 6. History of hyperlipidemia: Continue statin. DVT prophylaxis:SCDs, s/p OR DISPOSITION: med tele. Expect to PT/OT prior to discharge. Social service to help with discharge planning. Code: Full Admission and Anticipated Discharge Date Admission Date: April 29, 2021 Subjective Patient seen in follow-up of osteomyelitis, PAD, right heel ulcer, hyperglycemia Patient is s/p Debridement osteomyelitis right Calcaneus, evacuation abscess, irrigation and debridement heel ulcer w/ Dr. Reynolds Currently laying in bed in no acute distress No chest pain, shortness of breath, abdominal pain, nausea vomiting Reports some pain in his right foot Bacteremia Review of Systems Review of Systems: All systems reviewed & are unremarkable except as noted in Subjective Physical Exam Physical Exam: GENERAL: The patient is of moderate build, not in acute distress. HEENT: NC/AT, EOMI, PERRL, Oral mucosa moist. NECK: No JVD, no neck masses. CARDIOVASCULAR: S1 and S2 heard. Regular rate and rhythm. No murmur, no gallop. RESPIRATORY: Normal AP diameter. No accessory muscle use. No wheezing, no crackles. ABDOMEN: Soft, bowel sounds present, nontender, no distention. NEURO:Awake and alert, able to answer simple questions appropriately. No facial asymmetry, speech fluent, moves extremities EXTREMITIES: Right foot in postop dressings Results & Data Results & Data ([facility]) Vital Signs (Past 12 Hours) Vital Signs Temp Pulse Pulse Resp BP BP Pulse Ox 05/02/21 15:33 36.6 C 99 H 18 143/86 H 99 05/02/21 15:26 67 05/02/21 11:08 36.7 C 74 18 155/80 H 97 05/02/21 07:53 65 05/02/21 07:19 36.5 C 66 17 124/71 96 Laboratory Results 05/02/21 05/02/21 05/02/21 Range/Units 16:01 11:38 08:20 WBC 5.26 (4.8-10.8) K/uL RBC 3.60 L (4.7-6.1) M/uL Hgb 10.3 L (14.0-18.0) g/dL Hct 30.9 L (42-52) % MCV 85.8 (80-100) fL MCH 28.6 (25-34) pg MCHC 33.3 (32-36) g/dL RDW Std Deviation 41.3 (36.4-46.3) fL RDW Coeff of Дмитрий 13.1 (11.5-14.5) % Plt Count 206 (130-400) K/uL MPV 10.3 (7.4-10.4) fL POC Glucose 263 H 179 H (70-99) mg/dl Vancomycin Trough (See Comment) mcg/ml 05/02/21 05/02/21 05/02/21 Range/Units 08:20 07:59 04:07 WBC (4.8-10.8) K/uL RBC (4.7-6.1) M/uL Hgb (14.0-18.0) g/dL Hct (42-52) % MCV (80-100) fL MCH (25-34) pg MCHC (32-36) g/dL RDW Std Deviation (36.4-46.3) fL RDW Coeff of Дмитрий (11.5-14.5) % Plt Count (130-400) K/uL MPV (7.4-10.4) fL POC Glucose 141 H 129 H (70-99) mg/dl Vancomycin Trough 11.1 (See Comment) mcg/ml 05/02/21 05/01/21 05/01/21 Range/Units 00:07 23:06 22:37 WBC (4.8-10.8) K/uL RBC (4.7-6.1) M/uL Hgb (14.0-18.0) g/dL Hct (42-52) % MCV (80-100) fL MCH (25-34) pg MCHC (32-36) g/dL RDW Std Deviation (36.4-46.3) fL RDW Coeff of Дмитрий (11.5-14.5) % Plt Count (130-400) K/uL MPV (7.4-10.4) fL POC Glucose 120 H 118 H 77 (70-99) mg/dl Vancomycin Trough (See Comment) mcg/ml 05/01/21 05/01/21 05/01/21 Range/Units 21:09 19:04 18:06 WBC (4.8-10.8) K/uL RBC (4.7-6.1) M/uL Hgb (14.0-18.0) g/dL Hct (42-52) % MCV (80-100) fL MCH (25-34) pg MCHC (32-36) g/dL RDW Std Deviation (36.4-46.3) fL RDW Coeff of Дмитрий (11.5-14.5) % Plt Count (130-400) K/uL MPV (7.4-10.4) fL POC Glucose 106 H 165 H 170 H (70-99) mg/dl Vancomycin Trough (See Comment) mcg/ml 05/01/21 05/01/21 Range/Units 17:00 16:01 WBC (4.8-10.8) K/uL RBC (4.7-6.1) M/uL Hgb (14.0-18.0) g/dL Hct (42-52) % MCV (80-100) fL MCH (25-34) pg MCHC (32-36) g/dL RDW Std Deviation (36.4-46.3) fL RDW Coeff of Дмитрий (11.5-14.5) % Plt Count (130-400) K/uL MPV (7.4-10.4) fL POC Glucose 153 H 179 H (70-99) mg/dl Vancomycin Trough (See Comment) mcg/ml Medications Administered Current Inpatient Medications Acetaminophen (Acetaminophen 325 Mg Tab) 650 mg PO Q4H PRN PRN Reason: Pain or Fever Stop: 05/29/21 23:31 Last Admin: 05/02/21 08:54 Dose: 650 mg Documented by: Amlodipine Besylate (Amlodipine Besylate 5 Mg Tab) 5 mg PO QAM [place] Stop: 05/30/21 08:59 Last Admin: 05/02/21 08:53 Dose: 5 mg Documented by: Aspirin (Aspirin 81 Mg Ectab) 81 mg PO DAILY [place] Stop: 05/30/21 08:59 Last Admin: 05/02/21 08:54 Dose: 81 mg Documented by: Atorvastatin Calcium (Atorvastatin 40 Mg Tab) 40 mg PO HS [place] Stop: 05/30/21 20:59 Last Admin: 05/01/21 21:42 Dose: 40 mg Documented by: Clopidogrel Bisulfate (Clopidogrel Bisulfate 75 Mg Tab) 75 mg PO QAM [place] Stop: 05/30/21 08:59 Last Admin: 05/02/21 08:54 Dose: 75 mg Documented by: Collagenase (Collagenase Oint 30 Gm Tube) 1 appln TOP DAILY [place] Stop: 05/30/21 08:59 Last Admin: 05/02/21 08:54 Dose: Not Given Documented by: Dextrose (Dextrose 50% 50 Ml Syringe) 25 - 50 ml IV UD PRN; Protocol PRN Reason: Hypoglycemia Protocol Stop: 05/30/21 15:59 Last Admin: 05/01/21 22:48 Dose: 25 ml Documented by: Gabapentin (Gabapentin 300 Mg Cap) 600 mg PO BID [place] Stop: 05/30/21 08:59 Last Admin: 05/02/21 08:53 Dose: 600 mg Documented by: Glucagon (Glucagon For Inj 1 Mg Vial) 1 mg IM UD PRN; Protocol PRN Reason: Hypoglycemia Protocol Stop: 05/30/21 15:59 Glucose (Glucose 40% Gel 15 Gm Tube) 15 - 30 gm PO UD PRN; Protocol PRN Reason: Hypoglycemia Protocol Stop: 05/30/21 15:59 Glucose (Glucose 10 Tabs/Tube) 4 - 8 tabs PO UD PRN; Protocol PRN Reason: Hypoglycemia Protocol Stop: 05/30/21 15:59 Clindamycin Phosphate 600 mg/ (Dextrose) 54 mls @ 100 mls/hr IV Q8H [place] Stop: 05/07/21 05:59 Last Infusion: 05/02/21 15:13 Dose: Infused Documented by: Sodium Chloride (Nss 1000ml) 1,000 mls @ 100 mls/hr IV .Q10H [place] Stop: 05/31/21 09:29 Last Admin: 05/02/21 06:13 Dose: 100 mls/hr Documented by: Piperacillin Sod/Tazobactam (Sod 3.375 gm/ Dextrose) 115 mls @ 28.75 mls/hr IV Q8 [place]; Protocol Stop: 05/08/21 14:44 Last Admin: 05/02/21 14:29 Dose: 28.8 mls/hr Documented by: Vancomycin HCl 750 mg/ Sodium (Chloride) 265 mls @ 200 mls/hr IV Q12@0900,2100 [facility]; Protocol Stop: 05/16/21 20:59 Insulin Aspart (Insulin Aspart 100 Units/Ml 3 Ml Pen) 0 units SC ACHS [facility]; Protocol Stop: 06/01/21 07:29 Last Admin: 05/02/21 12:33 Dose: 5 units Documented by: Lactobacillus Acidoph/Casei/Rhamnos (Advanced Probiotic 1250 Mg Capsule) 2 cap PO BID [facility] Stop: 05/31/21 20:59 Last Admin: 05/02/21 08:53 Dose: 2 cap Documented by: Losartan Potassium (Losartan Potassium 25 Mg Tab) 25 mg PO QAM [facility] Stop: 05/30/21 08:59 Miscellaneous (Carbohydrates For Hypoglycemia ) 15 - 30 gm PO UD PRN PRN Reason: Hypoglycemia Treatment Stop: 05/30/21 15:59 Miscellaneous Information (Vancomycin Consult Active) 1 ea N/A UD PRN PRN Reason: Consult Stop: 05/29/21 19:40 Miscellaneous Information (Pharmacy Glycemic Mgmt Consult) 1 ea N/A UD PRN PRN Reason: Consult Stop: 05/29/21 23:31 Miscellaneous Information (Piperacill/Tazobac Consult Active) 1 ea N/A UD PRN PRN Reason: Consult Stop: 05/31/21 14:35 Nitroglycerin (Nitroglycerin Sl 0.4 Mg/Tab Tab) 0.4 mg SL UD PRN PRN Reason: Chest Pain Stop: 05/29/21 23:31 Oxycodone HCl (Oxycodone Hcl Ir 5 Mg Tab (Immediate Release)) 5 mg PO Q4H PRN PRN Reason: pain Stop: 05/16/21 09:36 Polyethylene Glycol (Polyethylene (Miralax) 17 Gm Pack) 17 gm PO DAILY PRN PRN Reason: Constipation Stop: 05/29/21 23:31
--- NOTE | 2021-05-02 16:26 | Orthopedic Progress Note ---
Date of Service May 02, 2021 Assessment & Plan (1) Acute osteomyelitis of right calcaneus: Plan: POD #2 s/p1. Right heel debridement of calcaneal osteomyelitis. 2. Incision and drainage of abscess, right heel. 3. Irrigation and debridement diabetic neuropathic ulcer of the heel measuring 6 x 8 x 1 cm Dressing changed today. ~6 inches of packing removed in each of the two packing sites. NWB RLE at all times. . When the patient is optimized medically, will plan for right BKA. D/C planning--uncertain at this time. (2) Diabetic ulcer of right heel: Admission and Anticipated Discharge Date Admission Date: April 29, 2021 Subjective No complaints of the right foot. States that his blood sugars have been high so medicine is working to improve them so he can proceed with a right BKA. Frustrated with staying in the hospital until the time of surgery. Physical Exam Constitutional: WD/WN, vitals as above no acute distress Skin: + ulcer (plantar/posterior right heel ulcer. Some packing pulled today. Malodorous.) Neurologic: + abnormal touch/pain/proprioception Psychiatric: A+Ox3, euthymic affect Speech: normal rate/rhythm/volume of speech Results & Data ([facility]) Vital Signs (Past 12 Hours) Vital Signs Temp Pulse Pulse Resp BP BP Pulse Ox 05/02/21 15:33 36.6 C 99 H 18 143/86 H 99 05/02/21 15:26 67 05/02/21 11:08 36.7 C 74 18 155/80 H 97 05/02/21 07:53 65 05/02/21 07:19 36.5 C 66 17 124/71 96
[2021-05-02 17:21] LABS: BUN Creatinine Ratio 13.5 (10-20); Calcium 8.1 mg/dl (8.5-10.1); Creatinine Clr Calc Pharmacy 47.8 ml/min; Est GFR (African American) 55.3 ml/min; Est GFR (Non-African American) 47.7 ml/min; Magnesium 1.7 mg/dl (1.8-2.4); Potassium 4.4 mmol/L (3.5-5.1)
[2021-05-02] MEDS: ATORVASTATIN 40 MG TAB PO SCH (21:30)
[2021-05-02] MEDS: VANCOMYCIN HCL 750 MG in SODIUM CHLORIDE 0.9% 250 ML IV SCH (21:31)
[2021-05-03] MEDS: SODIUM CHLORIDE 0.9% 1000ML 1,000 ML IV SCH ×2 (02:31→12:35)
[2021-05-03] MEDS: PIPERACILLIN/TAZOBACTAM 3.375 GM in DEXTROSE 5% 100 ML IV SCH ×3 (06:12→22:12)
[2021-05-03] MEDS: CLINDAMYCIN 600 MG in DEXTROSE 5% 50 ML IV SCH ×3 (06:12→22:11)
[2021-05-03] MEDS: ACETAMINOPHEN 325 MG TAB PO PRN ×2 (06:12→15:39)
[2021-05-03 08:05] LABS: Hematocrit (blood only) 27.2 % (42-52); Hemoglobin 9.3 g/dL (14.0-18.0); Mean Corpuscular Hemoglobin 28.7 pg (25-34); Mean Corpuscular Hgb Conc 34.2 g/dL (32-36); Mean Platelet Volume 10.5 fL (7.4-10.4); Platelet Count 209 K/uL (130-400); RDW Coefficient of Variation 13.2 % (11.5-14.5); RDW Standard Deviation 40.5 fL (36.4-46.3); Red Blood Count 3.24 M/uL (4.7-6.1); White Blood Count 5.72 K/uL (4.8-10.8)
[2021-05-03 08:38] LABS: BUN Creatinine Ratio 15.3 (10-20); Calcium 8.4 mg/dl (8.5-10.1); Creatinine Clr Calc Pharmacy 54.2 ml/min; Est GFR (African American) 64.3 ml/min; Est GFR (Non-African American) 55.5 ml/min; Magnesium 1.7 mg/dl (1.8-2.4); Phosphorus 3.1 mg/dl (2.5-4.9); Potassium 4.2 mmol/L (3.5-5.1)
[2021-05-03] MEDS: CLOPIDOGREL BISULFATE 75 MG TAB PO SCH (08:38)
[2021-05-03] MEDS: GABAPENTIN 300 MG CAP PO SCH ×2 (08:38→21:53)
[2021-05-03] MEDS: ASPIRIN 81 MG ECTAB PO SCH (08:39)
[2021-05-03] MEDS: amLODIPine BESYLATE 5 MG TAB PO SCH (08:39)
[2021-05-03] MEDS: ADVANCED PROBIOTIC 1250 MG CAPSULE PO SCH ×2 (08:39→21:54)
[2021-05-03] MEDS: INSULIN ASPART 100 UNITS/ML 3 ML PEN SC SCH ×4 (08:40→21:54)
[2021-05-03] MEDS: VANCOMYCIN HCL 750 MG in SODIUM CHLORIDE 0.9% 250 ML IV SCH ×2 (08:42→21:52)
[2021-05-03] MEDS: COLLAGENASE OINT 30 GM TUBE TOP SCH (08:42)
[2021-05-03] MEDS ORDERED: INSULIN GLARGINE SOLOSTAR 100 UNITS/ML 3 ML PEN SC SCH (09:00)
[2021-05-03] MEDS: MAGNESIUM OXIDE 400 MG TAB PO SCH ×2 (10:58→21:54)
[2021-05-03] MEDS ORDERED: INSULIN GLARGINE SOLOSTAR 100 UNITS/ML 3 ML PEN SC ONE (12:15)
--- NOTE | 2021-05-03 21:05 | Hospitalist Progress Note ---
Date of Service May 03, 2021 Assessment & Plan (1) Hyperglycemia due to type 1 diabetes mellitus: (2) Acute osteomyelitis of right calcaneus: Plan: This is a 65-year-old male presents with hyperglycemia, nonhealing right foot necrotic ulcer -osteomyelitis and abscess. #.Nonhealingdiabetic right heel necrotic ulcer, questionable gas forming organisms. #. R heel Osteomyelitis. #. Gram-positive bacteremia The patient is following with Orthopedics and Vascular Surgery and also ID. If not improving and if there is MRSA in the infection ID recommended below-knee amputation. 04/29 blood culture: Positive for E faecalis 04/30 wound culture positive for E faecalis, MRSA, gram-positive cocci 04/30 status post right heel debridement of calcaneal OM, incision and drainage of abscess of right heel, irrigation and debridement of diabetic neuropathic ulcer of the heel measuring 6x8x1 cm Orthopedics on board: Plan for right BKA when medically stable c/w IV antibiotic Clinda, Vanco and Zosyn. ID recommended discontinuing Clinda and Zosyn and continue with vancomycin. Patient's 04/29 blood culture grew Enterococcus faecalis along with 04/30 wound culture growing E faecalis, MRSA and gram-positive cocci. Since there seems discrepancy between ID note and patient's culture report, Dr. Sanchez has been reached via [place] text, awaiting response. Repeat blood culture 05/01 no growth so far, 05/01 echo with EF of 60 to 65%, grade 2 diastolic dysfunction, mild TR. Continue to monitor. Follow-up final results on repeat blood culture. Follow- up on ID recommendation. #. Type 1 diabetes: Patient presented with hypoglycemia, glycemic pharmacy on board. #. Peripheral vascular disease and HLD Status post stent in right SFA. Continue statin/Plavix/aspirin #. Hypertension: Continue amlodipine. Hold losartan for KEN. #. KEN over CKD: Baseline creatinine 1.4-1.7, creatinine on admission 1.9, creatinine WNL today. Resolved. Will DC IV fluids. Will resume losartan from tomorrow. DVT prophylaxis:SCDs, s/p OR DISPOSITION: med tele. Expect to PT/OT prior to discharge. Social service to help with discharge planning. Code: Full Admission and Anticipated Discharge Date Admission Date: April 29, 2021 Subjective Patient was lying in bed, on room air, NAD, no acute events overnight per patient. Patient denies any chest pain/shortness of breath/abdominal pain/nausea/vomiting/other review of symptoms. Physical Exam Physical Exam: GENERAL: Alert and oriented x3. NAD, on RA. HEENT: No pallor, no icterus. Pupils equal, round and reactive to light. Oral mucosa moist. NECK: No JVD, no neck masses. HEART: S1 and S2 heard. Regular rate and rhythm. No murmur, no gallop. RESPIRATORY SYSTEM: Normal AP diameter. No accessory muscle use. No wheezing, no crackles. ABDOMEN: Soft, bowel sounds present, nontender, no distention. CENTRAL NERVOUS SYSTEM: Alert and oriented x3. No facial droop. Speech is clear. Obeys simple commands. Moves extremities. EXTREMITIES: No edema LLE no erythema seen. RLE with clean dressing without s [place] and 1+ pitting edema Results & Data Results & Data ([facility]) Vital Signs (Past 12 Hours) Vital Signs Temp Pulse Pulse Resp BP BP Pulse Ox 05/03/21 19:28 36.8 C 78 18 154/89 H 99 05/03/21 15:32 68 05/03/21 14:43 36.8 C 68 16 149/72 H 99 05/03/21 11:07 36.6 C 73 18 149/82 H 99 05/03/21 10:17 70
[2021-05-03] MEDS: ATORVASTATIN 40 MG TAB PO SCH (21:53)
[2021-05-04] MEDS: PIPERACILLIN/TAZOBACTAM 3.375 GM in DEXTROSE 5% 100 ML IV SCH ×2 (05:54→14:56)
[2021-05-04] MEDS: CLINDAMYCIN 600 MG in DEXTROSE 5% 50 ML IV SCH ×2 (05:55→14:56)
[2021-05-04] MEDS ORDERED: VANCOMYCIN TROUGH ONE (08:30)
[2021-05-04] MEDS: INSULIN ASPART 100 UNITS/ML 3 ML PEN SC SCH ×4 (08:39→21:08)
[2021-05-04] MEDS: GABAPENTIN 300 MG CAP PO SCH ×2 (08:41→21:01)
[2021-05-04] MEDS: MAGNESIUM OXIDE 400 MG TAB PO SCH ×2 (08:41→20:56)
[2021-05-04] MEDS: CLOPIDOGREL BISULFATE 75 MG TAB PO SCH (08:41)
[2021-05-04] MEDS: ADVANCED PROBIOTIC 1250 MG CAPSULE PO SCH ×2 (08:41→20:56)
[2021-05-04] MEDS: amLODIPine BESYLATE 5 MG TAB PO SCH (08:42)
[2021-05-04] MEDS: ASPIRIN 81 MG ECTAB PO SCH (08:42)
[2021-05-04] MEDS: VANCOMYCIN HCL 750 MG in SODIUM CHLORIDE 0.9% 250 ML IV SCH ×2 (08:49→20:59)
[2021-05-04] MEDS: COLLAGENASE OINT 30 GM TUBE TOP SCH (08:50)
[2021-05-04 08:55] LABS: Hemoglobin 10.5 g/dL (14.0-18.0); Mean Corpuscular Hemoglobin 28.6 pg (25-34); Mean Corpuscular Hgb Conc 33.9 g/dL (32-36); Mean Corpuscular Volume 84.5 fL (80-100); Mean Platelet Volume 10.3 fL (7.4-10.4); Platelet Count 249 K/uL (130-400); RDW Coefficient of Variation 13.2 % (11.5-14.5); RDW Standard Deviation 40.3 fL (36.4-46.3); Red Blood Count 3.67 M/uL (4.7-6.1); White Blood Count 8.63 K/uL (4.8-10.8)
[2021-05-04] MEDS ORDERED: INSULIN GLARGINE SOLOSTAR 100 UNITS/ML 3 ML PEN SC SCH (09:00)
[2021-05-04 09:22] LABS: BUN Creatinine Ratio 13.7 (10-20); Calcium 8.9 mg/dl (8.5-10.1); Creatinine Clr Calc Pharmacy 58.1 ml/min; Est GFR (African American) 69.9 ml/min; Est GFR (Non-African American) 60.3 ml/min; Magnesium 1.8 mg/dl (1.8-2.4); Phosphorus 2.9 mg/dl (2.5-4.9); Potassium 4.1 mmol/L (3.5-5.1)
--- NOTE | 2021-05-04 10:15 | Pharmacy Report ---
Pharmacy Abx Dose Short Note - Date of Service May 04, 2021 - Assessment & Plan Assessment 65 year old M receiving Vancomycin, Zosyn, + Clindamycin for treatment of osteo Day # 5 of antimicrobial therapy. Plan Vancomycin * Trough level of 16.9 mcg/mL is therapeutic * Continue dose of 750 mg IV every 12 hours * Goal trough level for Osteo : 15 to 20 mcg/mL * Repeat Trough level ordered for: 05/06/21; since Scr trending downwards. Dose or interval may need adjusted if renal function continues to improve. Pharmacy will continue to follow and will adjust dose/frequency as necessary. Thank you.
--- NOTE | 2021-05-04 10:20 | Pharmacy Report ---
Pharmacy Glycemic Short Note 2 - Date of Service May 04, 2021 - Glycemic Short BSG Results (Last 24 hours): 05/03/21 05/03/21 05/03/21 11:38 16:26 19:49 Glucose POC Glucose 247 H 180 H 215 H 05/04/21 05/04/21 01:57 07:26 Glucose 121 H POC Glucose 70 OUTPATIENT ANTIDIABETIC REGIMEN: * Lantus 35 units SQ qAM * A1c 7.8% on 04/30/21 ASSESSMENT: 05/03 * Pt has received 79 units of insulin over the past 24hrs * 35 units of basal with Lantus * 44 units of bolus with NovoLog * AM fasting BSG below goal range for inpatient targets at 70 mg/dl. Pt already received ordered dose of lantus 35 units this morning - will decrease to 30 units starting tomorrow and loosen CF/CR since likely too much basal on board. 05/02 * Insulin drip successfully discontinued yesterday evening, with a very slight trend up in BSG's since then up to 141 mg/dL this AM * Will continue the same total daily Lantus dose yesterday as a one-time dose this AM * Will continue Novolog at slightly tighter parameters than prior to drip initiation 05/01 * Insulin drip continued overnight. D5W fluids added last night. BSG's in or below goal range since 2099. Anion gap and CO2 wnl. Drip running at 1.6 units/hr. Fluids currently as D5W / NS w KCl 20 mEq/L @ 125 mL/hr as of this AM * Discussed w Dr. Roque - OK to transition off drip and change fluids to NS @ 100 mL/hr * Will maintain same Lantus dose as drip is running at a low rate and D5W infusion to stop. * Additional Lantus added at 1330 as insulin drip rates were trending up * OK to stop drip once BSG's in goal range x2 checks and drip rate less than 1 unit/hr 04/30 * 65 yo T1DM admitted with nonhealing diabetic right hell necrotic ulcer, osteomyelitis, and hyperglycemia. * He was given two IV insulin boluses last evening plus Lantus 20 units this morning. I suspect conservative Lantus dose was selected due to NPO status and decreased basal insulin needs during December 2020 admission. However, patient remains hyperglycemia and AM labs are trending towards possible DKA. * Patient was taken to the OR for surgical debridement, I&D and possible right BKA. Will start IV insulin infusion upon transfer back to the floor. Will overlap with SQ insulin. PLAN FOR INPATIENT GLYCEMIC CONTROL: * Basal insulin * Lantus 30 units SQ daily starting tomorrow * Bolus insulin * Goal range: 110-140 mg/dL * Correction factor: 25 mg/dL/unit * Carb ratio: 6 g CHO/unit PLAN FOR DISCHARGE: * tbd
--- NOTE | 2021-05-04 17:11 | Hospitalist Progress Note ---
Date of Service May 04, 2021 Assessment & Plan (1) Hyperglycemia due to type 1 diabetes mellitus: (2) Acute osteomyelitis of right calcaneus: Plan: This is a 65-year-old male presents with hyperglycemia, nonhealing right foot necrotic ulcer -osteomyelitis and abscess. #.Nonhealingdiabetic right heel necrotic ulcer, questionable gas forming organisms. #. R heel Osteomyelitis. #. Gram-positive bacteremia The patient is following with Orthopedics and Vascular Surgery and also ID. If not improving and if there is MRSA in the infection ID recommended below-knee amputation. 04/29 blood culture: Positive for E faecalis 04/30 wound culture positive for E faecalis, MRSA, gram-positive cocci 04/30 status post right heel debridement of calcaneal OM, incision and drainage of abscess of right heel, irrigation and debridement of diabetic neuropathic ulcer of the heel measuring 6x8x1 cm Orthopedics on board: Plan for right BKA when medically stable Patient's 04/29 blood culture grew Enterococcus faecalis along with 04/30 wound culture growing E faecalis, MRSA and gram-positive cocci. 05/01 echo with EF of 60 to 65%, grade 2 diastolic dysfunction, mild TR. Repeat blood culture 05/01: Negative growth so far. c/w IV vancomycin. Re-Discussed with ID 05/04, stop date for antibiotic May 14 if patient undergoes BKA. Can change to ampicillin after BKA. Continue to monitor. Follow-up final results on repeat blood culture. #. Type 1 diabetes: Patient presented with hypoglycemia, glycemic pharmacy on board. #. Peripheral vascular disease and HLD Status post stent in right SFA. Continue statin/Plavix/aspirin #. Hypertension: Continue amlodipine. Hold losartan for KEN. #. KEN over CKD: Baseline creatinine 1.4-1.7, creatinine on admission 1.9, creatinine WNL today. Resolved DVT prophylaxis:SCDs, s/p OR DISPOSITION: med tele. Expect to PT/OT prior to discharge. Social service to help with discharge planning. Code: Full Admission and Anticipated Discharge Date Admission Date: April 29, 2021 Subjective Patient was lying in bed, on room air, NAD, no acute events overnight per patient. Patient reports some pain in his right foot. Patient denies any chest pain/shortness of breath/abdominal pain/nausea/vomiting/other review of symptoms. Physical Exam Physical Exam: GENERAL: Alert and oriented x3. NAD, on RA. HEENT: No pallor, no icterus. Pupils equal, round and reactive to light. Oral mucosa moist. NECK: No JVD, no neck masses. HEART: S1 and S2 heard. Regular rate and rhythm. No murmur, no gallop. RESPIRATORY SYSTEM: Normal AP diameter. No accessory muscle use. No wheezing, no crackles. ABDOMEN: Soft, bowel sounds present, nontender, no distention. CENTRAL NERVOUS SYSTEM: No facial droop. Speech is clear. Obeys simple commands. Moves extremities. EXTREMITIES: No edema LLE no erythema seen. RLE with clean dressing without soakage and 1+ pitting edema Results & Data Results & Data ([facility]) Vital Signs (Past 12 Hours) Vital Signs Temp Pulse Pulse Resp BP Pulse Ox 05/04/21 15:15 37.7 C H 74 18 150/77 H 97 05/04/21 15:00 69 05/04/21 10:57 36.9 C 77 18 164/96 H 97 05/04/21 07:37 36.9 C 80 18 183/91 H 100 05/04/21 07:00 70
[2021-05-04] MEDS: ATORVASTATIN 40 MG TAB PO SCH (20:56)
[2021-05-05] MEDS ORDERED: EPINEPHrine INJ 1 MG/ML AMP ONE (09:17)
[2021-05-05] MEDS ORDERED: BUPIVACAINE 0.25% 30 ML VIAL ONE (09:17)
[2021-05-05] MEDS: INSULIN ASPART 100 UNITS/ML 3 ML PEN SC SCH ×4 (09:41→21:44)
[2021-05-05] MEDS: amLODIPine BESYLATE 5 MG TAB PO SCH (09:42)
[2021-05-05] MEDS: ASPIRIN 81 MG ECTAB PO SCH (09:43)
[2021-05-05] MEDS: LOSARTAN POTASSIUM 25 MG TAB PO SCH (09:43)
[2021-05-05] MEDS: CLOPIDOGREL BISULFATE 75 MG TAB PO SCH (09:43)
[2021-05-05] MEDS: ADVANCED PROBIOTIC 1250 MG CAPSULE PO SCH ×2 (09:44→21:50)
[2021-05-05] MEDS: MAGNESIUM OXIDE 400 MG TAB PO SCH ×2 (09:44→21:52)
[2021-05-05] MEDS: VANCOMYCIN HCL 750 MG in SODIUM CHLORIDE 0.9% 250 ML IV SCH ×2 (09:46→21:52)
[2021-05-05] MEDS: INSULIN GLARGINE SOLOSTAR 100 UNITS/ML 3 ML PEN SC SCH (09:55)
[2021-05-05] MEDS: COLLAGENASE OINT 30 GM TUBE TOP SCH (09:56)
--- NOTE | 2021-05-05 10:04 | Pharmacy Report ---
Pharmacy Glycemic Short Note 2 - Date of Service May 05, 2021 - Glycemic Short BSG Results (Last 24 hours): 05/04/21 05/04/21 05/04/21 11:25 16:22 20:12 POC Glucose 150 H 140 H 156 H 05/05/21 05/05/21 09:24 09:25 POC Glucose 69 L* 75 OUTPATIENT ANTIDIABETIC REGIMEN: * Lantus 35 units SQ qAM * A1c 7.8% on 04/30/21 ASSESSMENT: 05/04 * Pt with LOW BSG this AM at 69/70 mg/dl. Will lower basal insulin from 35 to 30 units. Pt was not hungry this morning - did not want breakfast. Ok'ed to wait until lunchtime to give Lantus if that is what patient preferred. * No changes needed to CF/CR as post-prandial BSGs in goal range. 05/03 * Pt has received 79 units of insulin over the past 24hrs * 35 units of basal with Lantus * 44 units of bolus with NovoLog * AM fasting BSG below goal range for inpatient targets at 70 mg/dl. Pt already received ordered dose of lantus 35 units this morning - will decrease to 30 units starting tomorrow and loosen CF/CR since likely too much basal on board. 05/02 * Insulin drip successfully discontinued yesterday evening, with a very slight trend up in BSG's since then up to 141 mg/dL this AM * Will continue the same total daily Lantus dose yesterday as a one-time dose this AM * Will continue Novolog at slightly tighter parameters than prior to drip initiation 05/01 * Insulin drip continued overnight. D5W fluids added last night. BSG's in or below goal range since 2099. Anion gap and CO2 wnl. Drip running at 1.6 units/hr. Fluids currently as D5W / NS w KCl 20 mEq/L @ 125 mL/hr as of this AM * Discussed w Dr. Roque - VIVIANA to transition off drip and change fluids to NS @ 100 mL/hr * Will maintain same Lantus dose as drip is running at a low rate and D5W infusion to stop. * Additional Lantus added at 1330 as insulin drip rates were trending up * OK to stop drip once BSG's in goal range x2 checks and drip rate less than 1 unit/hr 04/30 * 65 yo T1DM admitted with nonhealing diabetic right hell necrotic ulcer, osteomyelitis, and hyperglycemia. * He was given two IV insulin boluses last evening plus Lantus 20 units this morning. I suspect conservative Lantus dose was selected due to NPO status and decreased basal insulin needs during December 2020 admission. However, patient remains hyperglycemia and AM labs are trending towards possible DKA. * Patient was taken to the OR for surgical debridement, I&D and possible right BKA. Will start IV insulin infusion upon transfer back to the floor. Will overlap with SQ insulin. PLAN FOR INPATIENT GLYCEMIC CONTROL: * Basal insulin * Lantus 30 units SQ daily * Bolus insulin * Goal range: 110-140 mg/dL * Correction factor: 25 mg/dL/unit * Carb ratio: 6 g CHO/unit PLAN FOR DISCHARGE: * tbd
[2021-05-05] MEDS: GABAPENTIN 300 MG CAP PO SCH ×2 (10:40→21:51)
[2021-05-05] MEDS ORDERED: ROPIVACAINE 0.5% 5 MG/ML 30 ML VIAL ONE (14:56)
[2021-05-05] MEDS ORDERED: SODIUM CHLORIDE 0.9% INJ 10 ML VIAL ONE (14:57)
[2021-05-05] MEDS ORDERED: fentaNYL citrate 100 MCG/2 ML VIAL ONE (15:03)
--- NOTE | 2021-05-05 15:04 | Anesthesiology Consultation ---
Date of Service May 05, 2021 Assessment & Plan (1) Encounter for pre-operative examination: Chart Review Chart Review: Acceptable Risk for Surgery History Surgery Operation Date: 04/30/21 11:30 Proposed Procedures p Incision and Drainage Extremity - Goldy Reynolds DO Operation Date: 05/05/21 15:20 Proposed Procedures p Right Below Knee Amputation - Goldy Reynolds DO Height/Weight Height: 5 ft 8 in Weight: 73.4 kg Allergies Allergy/AdvReac Type Severity Reaction Status Date / Time levofloxacin AdvReac Mild "nervous" Verified 05/01/21 13:09 shrimp AdvReac Mild NAUSEA Verified 05/01/21 13:09 Medications Home Medications Medication Instructions Recorded Confirmed Last Taken amlodipine 5 mg tablet 5 mg PO QAM 10/19/18 04/29/21 04/29/21 atorvastatin 40 mg tablet 40 mg PO HS #30 tab 07/08/20 04/29/21 07/15/20 fexofenadine 60 mg-pseudoephedrine 1 tab PO BID #14 tab 07/08/20 04/29/21 07/15/20 ER 120 mg tablet,ext.release,12 hr (Merari-D 12 Hour) clopidogrel 75 mg tablet 75 mg PO QAM #30 tab 12/31/20 04/29/21 Unknown gabapentin 300 mg capsule 600 mg PO BID cap 01/17/21 04/29/21 Unknown losartan 25 mg tablet 25 mg PO QAM tab 01/17/21 04/29/21 Unknown aspirin 81 mg tablet,delayed 81 mg PO DAILY #30 tab 04/07/21 04/29/21 04/28/21 release (Adult Aspirin Regimen) collagenase clostridium histo. 250 1 applic TOPICAL DAILY 14 Days #30 04/20/21 04/29/21 04/29/21 unit/gram topical ointment (Santyl) g insulin glargine 100 unit/mL (3 30 unit SUBCUT QAM ml 04/20/21 05/01/21 1 10:00 mL) subcutaneous pen (Lantus 35 u Solostar U-100 Insulin) doxycycline hyclate 100 mg tablet 100 mg PO bid 14 Days #28 tab 04/26/21 04/29/21 04/29/21 Active Medications Generic Name Dose Route Start Last Admin Trade Name Freq PRN Reason Stop Dose Admin Acetaminophen 650 mg 04/29/21 23:32 05/03/21 15:39 Acetaminophen 325 Mg Tab PO 05/29/21 23:31 650 mg Q4H PRN Administration Pain or Fever Amlodipine Besylate 5 mg 04/30/21 09:00 05/05/21 09:42 Amlodipine Besylate 5 Mg Tab PO 05/30/21 08:59 5 mg QAM [place] Administration Aspirin 81 mg 04/30/21 09:00 05/05/21 09:43 Aspirin 81 Mg Ectab PO 05/30/21 08:59 81 mg DAILY [place] Administration Atorvastatin Calcium 40 mg 04/30/21 21:00 05/04/21 20:56 Atorvastatin 40 Mg Tab PO 05/30/21 20:59 40 mg HS [place] Administration Clopidogrel Bisulfate 75 mg 04/30/21 09:00 05/05/21 09:43 Clopidogrel Bisulfate 75 Mg Tab PO 05/30/21 08:59 75 mg QAM [place] Administration Collagenase 1 appln 04/30/21 09:00 05/05/21 09:56 Collagenase Oint 30 Gm Tube TOP 05/30/21 08:59 Not Given DAILY [facility] Dextrose 25 - 50 ml 04/30/21 16:00 05/01/21 22:48 Dextrose 50% 50 Ml Syringe IV 05/30/21 15:59 25 ml UD PRN Administration Hypoglycemia Protocol Protocol Gabapentin 600 mg 04/30/21 09:00 05/05/21 10:40 Gabapentin 300 Mg Cap PO 05/30/21 08:59 Not Given BID [place] Vancomycin HCl 750 mg/ Sodium 265 mls @ 200 mls/hr 05/02/21 21:00 05/05/21 11:46 Chloride IV 05/16/21 20:59 Infused Q12@0900,2100 [facility] Infusion Protocol Insulin Aspart 0 units 05/02/21 07:30 05/05/21 12:02 Insulin Aspart 100 Units/Ml 3 Ml Pen SC 06/01/21 07:29 Not Given ACHS [facility] Protocol Insulin Glargine 30 units 05/05/21 09:00 05/05/21 09:55 Insulin Glargine Solostar 100 Units/Ml 3 Ml Pen SC 06/04/21 08:59 30 units DAILY [place] Administration Protocol Lactobacillus Acidoph/Casei/Rhamnos 2 cap 05/01/21 21:00 05/05/21 09:44 Advanced Probiotic 1250 Mg Capsule PO 05/31/21 20:59 2 cap BID [place] Administration Losartan Potassium 25 mg 04/30/21 09:00 05/05/21 09:43 Losartan Potassium 25 Mg Tab PO 05/30/21 08:59 25 mg QAM [place] Administration Magnesium Oxide 400 mg 05/03/21 10:30 05/05/21 09:44 Magnesium Oxide 400 Mg Tab PO 05/05/21 21:01 400 mg BID [place] Administration Oxycodone HCl 5 mg 05/02/21 09:37 05/02/21 21:25 Oxycodone Hcl Ir 5 Mg Tab (Immediate Release) PO 05/16/21 09:36 5 mg Q4H PRN Administration pain NPO Date Last Intake of Fluids: 04/30/21 Time Last Intake of Fluids: 08:00 Last Intake of Fluids Comment: Sips of water with meds Date Last Intake of Solids: 04/29/21 Time Last Intake of Solids: 17:00 Past Medical History Medical History Acute hyperglycemia Acute thoracic back pain Ambulatory dysfunction CKD (chronic kidney disease) COVID-19 COVID-19 Diabetic neuropathy Difficult airway for intubation Glidescope 2012 Dizziness DM type 1 (diabetes mellitus, type 1) [place] frequently History of heart block Patient presented to [facility] 03/2013 for elective L foot I&D. On induction with propofol in OR pt went into 3rd degree HB. Pt intubated and given 1 dose of Epi, which resolved HB but diffuse ST depression remained. Surgery aborted, pt to PACU, where ST segments returned to baseline and pt was extubated. Cardio consulted, echo WNL, no etiology discovered for HB, ST depression felt 2/2 strain from Epi or apnea. No further testing or intervention recommended. History of osteomyelitis Hyperlipidemia Low back pain Osteomyelitis of left foot history of Pulmonary nodule PVD (peripheral vascular disease) Vertigo history of--hypoglycemia Past Family History Family History Brother Diabetes Past Surgical History Surgical History H/O eye surgery both eyes, corrective lens implant History of colonoscopy 8 years ago S/P amputation of lesser toe "right second and third toe" Social History Smoking Status: Never smoker Hx Alcohol Use: Yes Alcohol type: hard liquor alcohol intake frequency: a few times a month Hx Substance Use: No substance use type: does not use Physical Exam Vital Signs Last Vital Signs Temp 37.1 C 05/05/21 07:31 Pulse 75 05/05/21 08:00 Resp 16 05/05/21 07:31 BP 153/81 H 05/05/21 07:31 Pulse Ox 97 05/05/21 07:31 Testing Laboratory Results 05/04/21 08:36 05/04/21 01:57 Hemoglobin A1c 7.8 % (4.5-5.6) H 04/30/21 05:43 Urine Color Yellow 05/01/21 14:35 Urine Appearance Cloudy (Clear) A 05/01/21 14:35 Urine pH 5.0 (4.5-7.5) 05/01/21 14:35 Ur Specific [place] 1.021 (1.000-1.030) 05/01/21 14:35 Urine Protein 1+ (Negative) H 05/01/21 14:35 Urine Glucose (UA) Negative (Negative) 05/01/21 14:35 Urine Ketones Trace (Negative) H 05/01/21 14:35 Urine Nitrite Negative (Negative) 05/01/21 14:35 Ur Leukocyte Esterase Negative (Negative) 05/01/21 14:35 Urine WBC (Auto) 1-5 /hpf (0-5) 05/01/21 14:35 Urine RBC (Auto) 0-4 /hpf (0-4) 05/01/21 14:35 U Hyaline Cast (Auto) 1-5 /lpf (0-5) 05/01/21 14:35 U Epithel Cells (Auto) 10-20 /lpf (0-5) H 05/01/21 14:35 Urine Bacteria (Auto) Negative (Negative) 05/01/21 14:35 Blood Type O Positive 05/05/21 06:03 Antibody Screen NEGATIVE 05/05/21 06:03 04/30/21 Unknown Gram Stain - Final Foot,Right Aerobic and Anaerobic Culture - Final Enterococcus faecalis Staph aureus MRSA Finegoldia magna 04/30/21 Unknown Gram Stain - Final Foot,Right Aerobic and Anaerobic Culture - Final Enterococcus faecalis Staph aureus MRSA Finegoldia magna 04/29/21 20:00 Aerobic Blood Culture - Final Blood No growth in Aerobic bottle after 5 days. Anaerobic Blood Culture - Final Enterococcus faecalis 05/01/21 14:35 Urine Culture - Final Urine,Clean Catch No growth - less than 1,000 colonies/mL. 05/01/21 07:55 Aerobic Blood Culture - Preliminary Blood No growth in Aerobic bottle after 48 hours. Anaerobic Blood Culture - Preliminary No growth in Anaerobic bottle after 48 hours. 05/01/21 08:09 Aerobic Blood Culture - Preliminary Blood No growth in Aerobic bottle after 48 hours. Anaerobic Blood Culture - Preliminary No growth in Anaerobic bottle after 48 hours. 04/29/21 19:11 Gram Stain - Final Foot,Right Wound Culture - Final Group B Beta Strep Staph aureus MRSA 04/29/21 18:37 Aerobic Blood Culture - Final Blood Enterococcus faecalis Anaerobic Blood Culture - Final Enterococcus faecalis 05/05/21 05/05/21 05/05/21 11:43 09:25 09:24 POC Glucose 102 H 75 69 L* Electrocardiogram Date: 04/29/21 Findings: + NSR @ (90) Echocardiogram Date: 05/01/21 EF: 60-85% Valvular Disease: + no significant valvular disease diastolic dysfunction
[2021-05-05] MEDS ORDERED: MIDAZOLAM HCL 1 MG/ML 2ML VIAL ONE (15:11)
--- NOTE | 2021-05-05 15:32 | History & Physical Bridge Note ---
Date of Service May 05, 2021 History & Physical Bridge Note I have examined the patient, reviewed the History & Physical and in the interval since the performance of the History & Physical I have noted the following changes of clinical significance: no changes noted
[2021-05-05] MEDS ORDERED: ceFAZolin 1000MG 1,000 MG/7.5 ML SYR IV ONE (15:54)
[2021-05-05] MEDS ORDERED: LIDOCAINE 2% 2 ML VIAL/AMP(20MG/ML) INFIL ONE (16:27)
[2021-05-05] MEDS ORDERED: PROPOFOL IV EMULSION 10 MG/ML 100 ML VIAL IV ONE (16:27)
[2021-05-05] MEDS ORDERED: ONDANSETRON INJ 2 MG/ML 2 ML VIAL ONE (16:27)
--- NOTE | 2021-05-05 17:49 | Post Operative Brief Note ---
Immediate Post Op Note v1 Date of Surgery May 05, 2021 Pre & Post Diagnosis Operation Date: 04/30/21 11:30 Pre-Op Diagnosis: Chronic, nonhealing ulcer, right heel and abscess right heel Post-Op Diagnosis: Chronic, nonhealing ulcer, right heel and abscess right heel Operation Date: 05/05/21 15:20 Pre-Op Diagnosis: PVD, neuropathic ulcer right foot, calcaneal osteomyelitis Post-Op Diagnosis: PVD, neuropathic ulcer right foot, calcaneal osteomyelitis I identified the patient and participated in the time-out.: Yes Procedure Operation Date: 04/30/21 11:30 Actual Procedures p Debridement osteomyelitis right Calcaneus, evacuation abscess, irrigation and debridement heel ulcer(Right) - Goldy Reynolds DO Operation Date: 05/05/21 15:20 Actual Procedures p Right Below Knee Amputation(Right) - Goldy Reynolds DO Surgeon Goldy Reynolds DO Hospice Administrator Gurpreet Carlos PA-C Estimated Blood Loss 5 Findings Consistent with Post-Op Diagnosis Specimens Aerobic, anaerobic, Gram stain abscess right heel Calcaneal bone for pathologic assessment Amputated parts right BKA Drains Hemovac Drain (Dual lumen right leg) and Other (patient came to OR with condom catheter) Anesthesia Type General Regional Complications none Disposition Accompanied Patient To Recovery: No
--- NOTE | 2021-05-05 18:24 | Anesthesiology Progress Note ---
Date of Service May 05, 2021 Anesthesia Post Procedure Vital Signs Vital Signs: Temp Pulse Pulse Pulse Resp BP BP 05/05/21 18:05 60 16 147/73 H 05/05/21 17:55 63 16 160/76 H 05/05/21 17:49 36.1 C L 68 16 164/79 H 05/05/21 16:00 67 05/05/21 15:44 37.1 C 69 18 148/71 H 05/05/21 15:05 36.9 C 66 16 165/82 H 05/05/21 08:00 75 05/05/21 07:31 37.1 C 62 16 153/81 H 05/04/21 23:55 37.2 C 79 18 129/67 05/04/21 22:34 77 05/04/21 18:36 37 C 78 18 124/85 Pulse Ox 05/05/21 18:05 98 05/05/21 17:55 100 05/05/21 17:49 98 05/05/21 16:00 05/05/21 15:44 99 05/05/21 15:05 98 05/05/21 08:00 05/05/21 07:31 97 05/04/21 23:55 97 05/04/21 22:34 05/04/21 18:36 97 Pain Intensity Left Foot: Pain Intensity: 2 Transfer of Care Handoff Completed per policy Notes Mental Status: alert / awake / arousable Patient Amnestic to Procedure: Yes Nausea / Vomiting: adequately controlled Pain: adequately controlled Airway Patency, RR, SpO2: stable & adequate BP & HR: stable & adequate Hydration State: stable & adequate Anesthetic Complications: no major complications apparent
[2021-05-05] MEDS ORDERED: METOCLOPRAMIDE HCL INJ 5 MG/ML 2 ML VIAL IV PRN (18:55)
[2021-05-05] MEDS ORDERED: HYDROmorphone INJ 0.5 MG/0.5 ML SYR IV PRN (18:55)
[2021-05-05] MEDS ORDERED: diphenhydrAMINE Capsule 25 MG CAP PO PRN (18:55)
[2021-05-05] MEDS ORDERED: bisacodyL 10 MG SUPP PR PRN (18:55)
[2021-05-05] MEDS ORDERED: MAGNESIUM HYDROXIDE SUSP 30 ML UDC PO PRN (18:55)
[2021-05-05] MEDS ORDERED: NALOXONE HCL 0.4 MG/1 ML VIAL/CARP IV PRN (18:55)
[2021-05-05] MEDS ORDERED: ONDANSETRON INJ 2 MG/ML 2 ML VIAL IV PRN (18:55)
--- NOTE | 2021-05-05 19:07 | Hospitalist Progress Note ---
Date of Service May 05, 2021 Assessment & Plan (1) Hyperglycemia due to type 1 diabetes mellitus: (2) Acute osteomyelitis of right calcaneus: Plan: This is a 65-year-old male presents with hyperglycemia, nonhealing right foot necrotic ulcer -osteomyelitis and abscess. #.Nonhealingdiabetic right heel necrotic ulcer, questionable gas forming organisms. #. R heel Osteomyelitis. #. Gram-positive bacteremia The patient is following with Orthopedics and Vascular Surgery and also ID. If not improving and if there is MRSA in the infection ID recommended below-knee amputation. 04/29 blood culture: Positive for E faecalis 04/30 wound culture positive for E faecalis, MRSA, gram-positive cocci 04/30 status post right heel debridement of calcaneal OM, incision and drainage of abscess of right heel, irrigation and debridement of diabetic neuropathic ulcer of the heel measuring 6x8x1 cm Orthopedics on board: Plan for right BKA today Patient's 04/29 blood culture grew Enterococcus faecalis along with 04/30 wound culture growing E faecalis, MRSA and gram-positive cocci. 05/01 echo with EF of 60 to 65%, grade 2 diastolic dysfunction, mild TR. Repeat blood culture 05/01: Negative growth so far. c/w IV vancomycin. Re-Discussed with ID 05/04, stop date for antibiotic May 14 if patient undergoes BKA. Can change to ampicillin after BKA. Continue to monitor. Follow-up final results on repeat blood culture. #. Type 1 diabetes: Patient presented with hypoglycemia, glycemic pharmacy on board. #. Peripheral vascular disease and HLD Status post stent in right SFA. Continue statin/Plavix/aspirin #. Hypertension: Continue amlodipine. Hold losartan for KEN. #. KEN over CKD: Baseline creatinine 1.4-1.7, creatinine on admission 1.9, creatinine WNL today. Resolved DVT prophylaxis:SCDs, s/p OR, chemical prophylaxis per orthopedic recommend ation. DISPOSITION: med tele. Expect to PT/OT prior to discharge. Social service to help with discharge planning. Code: Full Admission and Anticipated Discharge Date Admission Date: April 29, 2021 Subjective Patient was lying in bed, on room air, NAD, no acute events overnight per patient. Patient reports some pain in his right foot. Patient denies any chest pain/shortness of breath/abdominal pain/nausea/vomiting/other review of symptoms. Physical Exam Physical Exam: GENERAL: Alert and oriented x3. NAD, on RA. HEENT: No pallor, no icterus. Pupils equal, round and reactive to light. Oral mucosa moist. NECK: No JVD, no neck masses. HEART: S1 and S2 heard. Regular rate and rhythm. No murmur, no gallop. RESPIRATORY SYSTEM: Normal AP diameter. No accessory muscle use. No wheezing, no crackles. ABDOMEN: Soft, bowel sounds present, nontender, no distention. CENTRAL NERVOUS SYSTEM: No facial droop. Speech is clear. Obeys simple commands. Moves extremities. EXTREMITIES: No edema LLE no erythema seen. RLE with clean dressing without soakage and 1+ pitting edema Results & Data Results & [facility] ([facility]) Vital Signs (Past 12 Hours) Vital Signs Temp Pulse Pulse Pulse Resp BP BP 05/05/21 18:35 61 14 126/66 05/05/21 18:25 36.4 C L 60 14 138/67 05/05/21 18:15 59 L 15 139/65 05/05/21 18:05 60 16 147/73 H 05/05/21 17:55 63 16 160/76 H 05/05/21 17:49 36.1 C L 68 16 164/79 H 05/05/21 16:00 67 05/05/21 15:44 37.1 C 69 18 148/71 H 05/05/21 15:05 36.9 C 66 16 165/82 H 05/05/21 08:00 75 05/05/21 07:31 37.1 C 62 16 153/81 H Pulse Ox 05/05/21 18:35 93 05/05/21 18:25 93 05/05/21 18:15 92 05/05/21 18:05 98 05/05/21 17:55 100 05/05/21 17:49 98 05/05/21 16:00 05/05/21 15:44 99 05/05/21 15:05 98 05/05/21 08:00 05/05/21 07:31 97
[2021-05-05] MEDS: ATORVASTATIN 40 MG TAB PO SCH (21:50)
[2021-05-05] MEDS: DOCUSATE SODIUM 100 MG CAP PO SCH (21:51)
[2021-05-05] MEDS: SENNA 8.6 MG TAB PO SCH (21:56)
--- NOTE | 2021-05-05 23:44 | Operative Report (OR) ---
DATE OF PROCEDURE: 05/05/2021 PREOPERATIVE DIAGNOSES: 1. Right chronic calcaneal osteomyelitis. 2. Neuropathic ulcer, right foot. 3. Peripheral vascular disease. 4. Diabetes mellitus. POSTOPERATIVE DIAGNOSES: 1. Right chronic calcaneal osteomyelitis. 2. Neuropathic ulcer, right foot. 3. Peripheral vascular disease. 4. Diabetes mellitus. PROCEDURE: Right below-knee amputation. SURGEON: Goldy Reynolds DO. CREDIT UNION FIELD EXAMINER: Gurpreet Carlos PA-C who was present for patient positioning, sterile prep and drape, management of retractors and instruments. He was present through the critical portions of the case i ncluding wound closure, application of sterile dressing and transport of the patient to recovery. ANESTHESIA: General, regional. SPECIMENS: Amputated parts of right lower extremity, status post BKA. DRAINS: Hemovac x2. COMPLICATIONS: None. BLOOD LOSS: 5 mL. PERTINENT HISTORY: This is a 65-year-old gentleman who has had chronic progressive and worsening his tory of chronic osteomyelitis of the right heel. He has had multiple surgical interventions in an at tempt to preserve the limb; however, chronic osteomyelitis continued to manifest with intermittent se psis requiring hospitalization. The patient had difficulty with compliance with nonweightbearing whe n necessary. He has lost multiple toes. He has had a transmetatarsal amputation and continued to cochran ve neuropathic ulceration over the heel with intermittent drainage and discharge. As an interim gaetano ure, the patient was originally scheduled to have a below-knee amputation approximately a week ago; h owever, he was noted to be septic with free air in the tissue and was medically unstable to tolerate a below-knee amputation. Therefore, he underwent an irrigation and debridement at the behest of the department of anesthesia in the interest of the patient's safety. At this time, however, the patient is stable enough to tolerate a below-knee amputation. Therefore, the patient was scheduled for surg irineo as indicated. All potential risks, benefits, complications, alternatives, rehab potential for incomplete relief of symptoms, need for further surgery, DVT, PE, , persistent pain, swelling, scarring, weakness, ne urovascular injury, wound complications, injury to nerves and vessels, possible need for further ampu tation or revision surgery were discussed with the patient. The patient decided to proceed with the procedure as indicated. DESCRIPTION OF PROCEDURE: The patient had a regional anesthetic administered by the anesthesiologist in the preoperative holding area, then taken to the operative suite and placed supine on the operati ng room table. After review of consent and identification of proper operative site, the patient was anesthetized, LMA was placed. Tourniquet was placed high on the right thigh over cast padding. Righ t lower extremity was then sterilely prepped and draped in the usual fashion, elevated and partially exsanguinated from the mid gastroc proximally with an Esmarch bandage and then the tourniquet was inf lated to 325 mmHg. Next, after surgical timeout was performed, approximately 11 cm distal to the tibial tubercle, a skin incision was made transversely with a 10-blade scalpel and then a well-fashioned long posterior flap was then created using a full-thickness incision with a 10 blade scalpel down to the level of the fa scia. Next, anteriorly tissue was transected including muscle medial and lateral to the tibia down t o the level of bone of the tibial periosteum. This was performed with electrocautery. Next, the ski n rakes were applied gently to retract the soft tissue and the muscular tissue was then transected amanda th medial and lateral down to the midline of the tibial bone and then using a Mcwilliams elevator, perioste um was stripped approximately 1 cm proximal to the level of the skin incision. Next, the large Hohma nn's were placed circumferentially around the tibia to protect the soft tissue and then the tibia was then cut using a sagittal saw. A small bevel cut was made anteriorly and then the tibial bone was t hen feathered using the sagittal saw to remove any sharp edges of the bone. A rasp was then used to smooth and contour the remainder of the distal tibia. Next, attention was then directed toward the lateral aspect of the lower extremity. The fibula was t hen skeletonized and then protected using a large Hohmann retractor and angled bevel cut was made carmelita roximately 1 cm proximal to the level of the tibial resection cut and the angled bevel cut was made w ith a sagittal saw. This was then also rasped with a small rasp and then the tissue was then transec tonja at the level of the gastrocnemius and then a 10 blade scalpel was then used to complete the amput ation along the medial and lateral midline, then creating a long posterior flap while transecting the Achilles tendon and all musculature down to the level of bone of the tibia and fibula. The tibia and fibula were cut. A Mcwilliams elevator was then used to strip periosteum in the posterior aspect of the ti milton and fibula distally to connect with the distal incision, which was then completed with a 10 blade scalpel. The residual limb was then passed off as specimen in a sterile bag. Next, the major vessels were then identified and crossclamped with a Amanda clamp both proximal and di stal just proximal to the level of the bone cut. A doubled #2-0 silk was then used to tie off the ma fly vessels and posterior tibial nerve as well as the deep peroneal nerve. Next, the major vessels a nd nerves were then transected with electrocautery and then the ends were burned, cauterized and then transected. The neurovascular bundles and particularly the posterior tibial nerve was then allowed to retract deep within the stump. Next, the filet knife was then used to create a slight bevel to th e posterior flap down to the level of the full thickness tip of the flap. The site was then copiousl y irrigated with sterile saline irrigation until clear. There was no residual bleeding. No punctate bleeders were noted at that time. Next, the long posterior flap was then secured to the anterior periosteum anterior to the tibia using buried interrupted #1 Vicryl sutures. These locking buried sutures were then used to stabilize the fascia over the bone. Next, the dermis was closed using buried interrupted 2-0 Vicryl and then the s kin was closed using skin china. Twin 10-Portuguese Hemovac drains were placed exiting both medially a nd laterally and then a sterile compressive dressing was then applied overwrapped with [place] wraps. Th e tourniquet was released. The patient was awakened and taken to recovery in stable condition. Job ID: [id number]
[2021-05-06] MEDS: ACETAMINOPHEN 325 MG TAB PO PRN ×2 (04:46→22:42)
[2021-05-06] MEDS ORDERED: IBUPROFEN 200 MG TAB PO STA (06:09)
[2021-05-06] MEDS ORDERED: SODIUM CHLORIDE 0.45 % 1,000 ML IV ONE (06:10)
[2021-05-06 08:12] LABS: Hematocrit (blood only) 31.1 % (42-52); Hemoglobin 10.2 g/dL (14.0-18.0); Mean Corpuscular Hemoglobin 28.4 pg (25-34); Mean Corpuscular Hgb Conc 32.8 g/dL (32-36); Mean Corpuscular Volume 86.6 fL (80-100); Mean Platelet Volume 10.3 fL (7.4-10.4); Platelet Count 299 K/uL (130-400); RDW Coefficient of Variation 13.1 % (11.5-14.5); RDW Standard Deviation 41.3 fL (36.4-46.3); Red Blood Count 3.59 M/uL (4.7-6.1); White Blood Count 12.21 K/uL (4.8-10.8)
[2021-05-06] MEDS: amLODIPine BESYLATE 5 MG TAB PO SCH (08:21)
[2021-05-06] MEDS: ASPIRIN 81 MG ECTAB PO SCH (08:21)
[2021-05-06] MEDS: COLLAGENASE OINT 30 GM TUBE TOP SCH (08:22)
[2021-05-06] MEDS: GABAPENTIN 300 MG CAP PO SCH ×2 (08:22→20:13)
[2021-05-06] MEDS: MULTIVITAMIN TAB PO SCH (08:22)
[2021-05-06] MEDS: ADVANCED PROBIOTIC 1250 MG CAPSULE PO SCH ×2 (08:22→20:14)
[2021-05-06] MEDS: DOCUSATE SODIUM 100 MG CAP PO SCH ×2 (08:22→20:12)
[2021-05-06] MEDS: LOSARTAN POTASSIUM 25 MG TAB PO SCH (08:22)
[2021-05-06] MEDS: VANCOMYCIN HCL 750 MG in SODIUM CHLORIDE 0.9% 250 ML IV SCH (08:23)
[2021-05-06] MEDS: INSULIN ASPART 100 UNITS/ML 3 ML PEN SC SCH ×4 (08:26→20:14)
[2021-05-06] MEDS: INSULIN GLARGINE SOLOSTAR 100 UNITS/ML 3 ML PEN SC SCH (08:27)
[2021-05-06] MEDS ORDERED: VANCOMYCIN TROUGH ONE (08:30)
[2021-05-06 08:41] LABS: BUN Creatinine Ratio 16.2 (10-20); Est GFR (African American) 75.7 ml/min; Est GFR (Non-African American) 65.3 ml/min; Potassium 4.1 mmol/L (3.5-5.1)
[2021-05-06] MEDS ORDERED: MICONAZOLE NITRATE POWDER 43 GM EXT PRN (10:55)
--- NOTE | 2021-05-06 10:57 | Orthopedic Progress Note ---
Date of Service May 06, 2021 Assessment & Plan (1) Acute osteomyelitis of right calcaneus: Plan: s/p POD #1Right below-knee amputation. Patient was seen today with Dr. Reynolds Will plan for dressing change tomorrow and to pull drain. DC plan unknown at this time. Admission and Anticipated Discharge Date Admission Date: April 29, 2021 Subjective Patient in bed, bathing this am. No complaints Physical Exam Physical Exam: dressing intact. drain in place. Results & Data ([facility]) Vital Signs (Past 12 Hours) Vital Signs Temp Pulse Pulse Resp BP Pulse Ox 05/06/21 08:18 37.4 C 73 20 170/92 H 94 05/06/21 06:19 75 05/06/21 06:00 38.1 C H 05/06/21 05:46 37.9 C H 155/79 H 05/06/21 04:08 38.1 C H 73 17 166/70 H 93 05/05/21 23:22 37 C 67 16 145/71 H 97
[2021-05-06] MEDS: AMPICILLIN 2,000 MG in SODIUM CHLOR 0.9% AD-VAN 100 ML IV SCH ×3 (12:14→23:29)
--- NOTE | 2021-05-06 18:23 | Hospitalist Progress Note ---
Date of Service May 06, 2021 Assessment & Plan (1) Hyperglycemia due to type 1 diabetes mellitus: (2) Acute osteomyelitis of right calcaneus: Plan: This is a 65-year-old male presents with hyperglycemia, nonhealing right foot necrotic ulcer -osteomyelitis and abscess. #.Nonhealingdiabetic right heel necrotic ulcer, questionable gas forming organisms. #. R heel Osteomyelitis. #. Gram-positive bacteremia The patient is following with Orthopedics and Vascular Surgery and also ID. If not improving and if there is MRSA in the infection ID recommended below-knee amputation. 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 Patient's 04/29 blood culture grew Enterococcus faecalis along with 04/30 wound culture growing E faecalis, MRSA and gram-positive cocci. 05/01 echo with EF of 60 to 65%, grade 2 diastolic dysfunction, mild TR. Repeat blood culture 05/01: Negative growth so far. c/w IV vancomycin. Re-Discussed with ID 05/04, stop date for antibiotic May 14 if patient undergoes BKA. Can change to ampicillin after BKA. ---> Vancomycin changed to ampicillin 05/06, stop date May 14. Continue to monitor. Follow-up final results on repeat blood culture. #. Type 1 diabetes: Patient presented with hypoglycemia, glycemic pharmacy on board. #. Peripheral vascular disease and HLD Status post stent in right SFA. Continue statin/Plavix/aspirin #. Hypertension: Continue amlodipine. Hold losartan for KEN. #. KEN over CKD: Baseline creatinine 1.4-1.7. Resolved DVT prophylaxis:SCDs, s/p OR, chemical prophylaxis per orthopedic recommendation. DISPOSITION: med tele. Expect to PT/OT prior to discharge. Social service to help with discharge planning. Code: Full Admission and Anticipated Discharge Date Admission Date: April 29, 2021 Subjective Patient was lying in bed, on room air, NAD, no acute events overnight. Patient denies any pain. Patient denies headache/dizziness/chest pain/shortness of breath/other review of symptoms. Patient is eating and moving bowels okay. Physical Exam Physical Exam: GENERAL: Alert and oriented x3. NAD, on RA. HEENT: No pallor, no icterus. Pupils equal, round and reactive to light. Oral mucosa moist. NECK: No JVD, no neck masses. HEART: S1 and S2 heard. Regular rate and rhythm. No murmur, no gallop. RESPIRATORY SYSTEM: Normal AP diameter. No accessory muscle use. No wheezing, no crackles. ABDOMEN: Soft, bowel sounds present, nontender, no distention. CENTRAL NERVOUS SYSTEM: No facial droop. Speech is clear. Obeys simple commands. Moves extremities. EXTREMITIES: No edema LLE no erythema seen. RLE -status post BKA with clean dressing without soakage. Results & Data Results & Data ([facility]) Vital Signs (Past 12 Hours) Vital Signs Temp Pulse Pulse Pulse Resp BP Pulse Ox 05/06/21 15:54 37.1 C 64 16 166/93 H 97 05/06/21 14:19 67 05/06/21 12:24 36.6 C 72 20 155/94 H 96 05/06/21 08:18 37.4 C 73 20 170/92 H 94 05/06/21 06:19 75
[2021-05-06] MEDS: SENNA 8.6 MG TAB PO SCH (20:12)
[2021-05-06] MEDS: ATORVASTATIN 40 MG TAB PO SCH (20:13)
[2021-05-06] MEDS ORDERED: LACTATED RINGER'S 1,000 ML IV ONE (23:48)
[2021-05-07] MEDS ORDERED: MAGNESIUM SULFATE / D5W 1 GM/100 ML BAG IV ONE
[2021-05-07] MEDS: AMPICILLIN 2,000 MG in SODIUM CHLOR 0.9% AD-VAN 100 ML IV SCH ×3 (05:20→17:07)
[2021-05-07 06:55] LABS: Hematocrit (blood only) 30.7 % (42-52); Mean Corpuscular Hemoglobin 28.2 pg (25-34); Mean Corpuscular Hgb Conc 32.6 g/dL (32-36); Mean Corpuscular Volume 86.7 fL (80-100); Mean Platelet Volume 10.3 fL (7.4-10.4); Platelet Count 317 K/uL (130-400); RDW Coefficient of Variation 13.2 % (11.5-14.5); RDW Standard Deviation 42.1 fL (36.4-46.3); Red Blood Count 3.54 M/uL (4.7-6.1); White Blood Count 9.33 K/uL (4.8-10.8)
[2021-05-07] MEDS: ADVANCED PROBIOTIC 1250 MG CAPSULE PO SCH ×2 (08:21→20:49)
[2021-05-07] MEDS: COLLAGENASE OINT 30 GM TUBE TOP SCH (08:21)
[2021-05-07] MEDS: CLOPIDOGREL BISULFATE 75 MG TAB PO SCH (08:22)
[2021-05-07] MEDS: DOCUSATE SODIUM 100 MG CAP PO SCH ×2 (08:22→20:48)
[2021-05-07] MEDS: MULTIVITAMIN TAB PO SCH (08:23)
[2021-05-07] MEDS: ASPIRIN 81 MG ECTAB PO SCH (08:23)
[2021-05-07] MEDS: GABAPENTIN 300 MG CAP PO SCH ×2 (08:23→20:48)
[2021-05-07] MEDS: INSULIN GLARGINE SOLOSTAR 100 UNITS/ML 3 ML PEN SC SCH (08:24)
[2021-05-07] MEDS: LOSARTAN POTASSIUM 25 MG TAB PO SCH (08:24)
[2021-05-07] MEDS: amLODIPine BESYLATE 5 MG TAB PO SCH (08:24)
[2021-05-07] MEDS: INSULIN ASPART 100 UNITS/ML 3 ML PEN SC SCH ×4 (08:26→20:49)
--- NOTE | 2021-05-07 09:32 | Pharmacy Report ---
Pharmacy Glycemic Short Note 2 - Date of Service May 07, 2021 - Glycemic Short BSG Results (Last 24 hours): 05/06/21 05/06/21 05/06/21 11:48 16:19 20:11 POC Glucose 188 H 110 H 113 H 05/07/21 07:21 POC Glucose 217 H OUTPATIENT ANTIDIABETIC REGIMEN: * Lantus 35 units SQ qAM * A1c 7.8% on 04/30/21 ASSESSMENT: 05/07 * Pt has received 58 units of insulin over the past 24hrs * 30 units of basal with Lantus * 28 units of bolus with NovoLog * BSGs [phone] mg/dl. Fasting today is 217 mg/dL. * BSGs trending upwards. Will increase Lantus slightly - patient is a type 1 and sensitive to small insulin dose changes. Will increase from 30 to 33 units. * BSGs stayed stable throughout the day so continue Novolog. 05/04 * Pt with LOW BSG this AM at 69/70 mg/dl. Will lower basal insulin from 35 to 30 units. Pt was not hungry this morning - did not want breakfast. Ok'ed to wait until lunchtime to give Lantus if that is what patient preferred. * No changes needed to CF/CR as post-prandial BSGs in goal range. 05/03 * Pt has received 79 units of insulin over the past 24hrs * 35 units of basal with Lantus * 44 units of bolus with NovoLog * AM fasting BSG below goal range for inpatient targets at 70 mg/dl. Pt already received ordered dose of lantus 35 units this morning - will decrease to 30 units starting tomorrow and loosen CF/CR since likely too much basal on board. 05/02 * Insulin drip successfully discontinued yesterday evening, with a very slight trend up in BSG's since then up to 141 mg/dL this AM * Will continue the same total daily Lantus dose yesterday as a one-time dose this AM * Will continue Novolog at slightly tighter parameters than prior to drip initiation 05/01 * Insulin drip continued overnight. D5W fluids added last night. BSG's in or below goal range since 2100. Anion gap and CO2 wnl. Drip running at 1.6 units/hr. Fluids currently as D5W / NS w KCl 20 mEq/L @ 125 mL/hr as of this AM * Discussed w Dr. Mya MICHELLE to transition off drip and change fluids to NS @ 100 mL/hr * Will maintain same Lantus dose as drip is running at a low rate and D5W infusion to stop. * Additional Lantus added at 1330 as insulin drip rates were trending up * OK to stop drip once BSG's in goal range x2 checks and drip rate less than 1 unit/hr 04/30 * 65 yo T1DM admitted with nonhealing diabetic right hell necrotic ulcer, osteomyelitis, and hyperglycemia. * He was given two IV insulin boluses last evening plus Lantus 20 units this morning. I suspect conservative Lantus dose was selected due to NPO status and decreased basal insulin needs during December 2020 admission. However, patient remains hyperglycemia and AM labs are trending towards possible DKA. * Patient was taken to the OR for surgical debridement, I&D and possible right BKA. Will start IV insulin infusion upon transfer back to the floor. Will overlap with SQ insulin. PLAN FOR INPATIENT GLYCEMIC CONTROL: * Basal insulin * Lantus 33 units SQ daily * Bolus insulin * Goal range: 110-140 mg/dL * Correction factor: 25 mg/dL/unit * Carb ratio: 6 g CHO/unit PLAN FOR DISCHARGE: * Recommend initiation with [facility] clinic. * In interim, could try Lantus 33 units daily plus Novolog 5 units with meals (8 units if has larger meal with more carbohydrates)
--- NOTE | 2021-05-07 09:53 | Orthopedic Progress Note ---
Date of Service May 07, 2021 Assessment & Plan (1) Acute osteomyelitis of right calcaneus: Plan: s/p POD #2Right below-knee amputation. Drain pulled today and dressing change DC plan unknown at this time. Admission and Anticipated Discharge Date Admission Date: April 29, 2021 Subjective Patient resting comfortably in bed. Feeling better today. Denies chest pain, SOB, dizziness, lightheadedness. He is incontinent of urine this am Physical Exam Physical Exam: Drain pulled this am. Incision healing well. No erythema. NVI. Results & Data ([facility]) Vital Signs (Past 12 Hours) Vital Signs Temp Pulse Pulse Pulse Resp BP BP 05/07/21 07:36 36.1 C L 74 16 154/76 H 05/07/21 07:26 79 05/07/21 03:34 37 C 71 18 169/70 H 05/07/21 00:29 37.4 C 05/06/21 23:36 38.2 C H 80 16 162/74 H Pulse Ox 05/07/21 07:36 93 05/07/21 07:26 05/07/21 03:34 94 05/07/21 00:29 05/06/21 23:36 94
--- NOTE | 2021-05-07 17:12 | Hospitalist Progress Note ---
Date of Service May 07, 2021 Assessment & Plan (1) Hyperglycemia due to type 1 diabetes mellitus: (2) Acute osteomyelitis of right calcaneus: Plan: This is a 65-year-old male presents with hyperglycemia, nonhealing right foot necrotic ulcer -osteomyelitis and abscess. #.Nonhealingdiabetic right heel necrotic ulcer, questionable gas forming organisms. #. R heel Osteomyelitis. #. Gram-positive bacteremia The patient is following with Orthopedics and Vascular Surgery and also ID. If not improving and if there is MRSA in the infection ID recommended below-knee amputation. 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 Patient's 04/29 blood culture grew Enterococcus faecalis along with 04/30 wound culture growing E faecalis, MRSA and gram-positive cocci. 05/01 echo with EF of 60 to 65%, grade 2 diastolic dysfunction, mild TR. Repeat blood culture 05/01: Negative growth so far; another repeat blood culture sent 05/07 per [facility]. c/w IV vancomycin. Re-Discussed with ID 05/04, stop date for antibiotic May 14 if patient undergoes BKA. Can change to ampicillin after BKA. ---> Vancomycin changed to ampicillin 05/06, stop date May 14. Continue to monitor. Follow-up final results on repeat blood culture. #. Type 1 diabetes: Patient presented with hypoglycemia, glycemic pharmacy on board. #. Peripheral vascular disease and HLD Status post stent in right SFA. C ontinue statin/Plavix/aspirin #. Hypertension: Continue amlodipine. Hold losartan for KEN. #. KEN over CKD: Baseline creatinine 1.4-1.7. Resolved DVT prophylaxis:SCDs, s/p OR, chemical prophylaxis per orthopedic recommendation. DISPOSITION: med tele. PT/OT prior to discharge. Social service to help with discharge planning. Likely need placement. Code: Full Admission and Anticipated Discharge Date Admission Date: April 29, 2021 Subjective Patient was seen and examined at bedside. Patient resting comfortably. On room air. No acute events overnight. Patient is eating and moving bowels okay. Patient denies any headache/chills/chest pain/palpitation/other review of symptoms. Physical Exam Physical Exam: GENERAL: Alert and oriented x3. NAD, on RA. HEENT: No pallor, no icterus. Pupils equal, round and reactive to light. Oral mucosa moist. NECK: No JVD, no neck masses. HEART: S1 and S2 heard. Regular rate and rhythm. No murmur, no gallop. RESPIRATORY SYSTEM: Normal AP diameter. No accessory muscle use. No wheezing, no crackles. ABDOMEN: Soft, bowel sounds present, nontender, no distention. CENTRAL NERVOUS SYSTEM: No facial droop. Speech is clear. Obeys simple commands. Moves extremities. EXTREMITIES: No edema LLE no erythema seen. RLE -status post BKA with clean dressing without soakage. Results & Data Results & Data ([facility]) Vital Signs (Past 12 Hours) Vital Signs Temp Pulse Pulse Resp BP Pulse Ox 05/07/21 15:00 81 05/07/21 11:17 36.9 C 75 16 156/77 H 95 05/07/21 07:36 36.1 C L 74 16 154/76 H 93 05/07/21 07:26 79
[2021-05-07 20:01] LABS: Appearance Urine Clear (Clear); Bacteria Urine Automated Negative (Negative); Bilirubin Urine Negative (Negative); Blood Urine Trace (Negative); Cast Urine Automated 0 /lpf (0-5); Color Urine Yellow; Glucose Urine UA Negative (Negative); Ketones Urine Negative (Negative); Leukocyte Esterase Urine Negative (Negative); Nitrite Urine Negative (Negative); Protein Urine 1+ (Negative); RBC Urine Automated 0-4 /hpf (0-4); Specific Gravity Urine 1.015 (1.000-1.030); Urobilinogen Urine Negative (Negative)
[2021-05-07] MEDS: ATORVASTATIN 40 MG TAB PO SCH (20:47)
[2021-05-07] MEDS: SENNA 8.6 MG TAB PO SCH (20:49)
[2021-05-08] MEDS: AMPICILLIN 2,000 MG in SODIUM CHLOR 0.9% AD-VAN 100 ML IV SCH ×5 (00:13→23:48)
[2021-05-08 07:32] LABS: Hematocrit (blood only) 30.4 % (42-52); Hemoglobin 9.9 g/dL (14.0-18.0); Mean Corpuscular Hemoglobin 28.4 pg (25-34); Mean Corpuscular Hgb Conc 32.6 g/dL (32-36); Mean Corpuscular Volume 87.1 fL (80-100); Mean Platelet Volume 10.3 fL (7.4-10.4); Platelet Count 352 K/uL (130-400); RDW Standard Deviation 41.7 fL (36.4-46.3); Red Blood Count 3.49 M/uL (4.7-6.1); White Blood Count 7.31 K/uL (4.8-10.8)
[2021-05-08] MEDS: INSULIN ASPART 100 UNITS/ML 3 ML PEN SC SCH ×4 (08:41→20:11)
[2021-05-08] MEDS: INSULIN GLARGINE SOLOSTAR 100 UNITS/ML 3 ML PEN SC SCH (08:42)
[2021-05-08] MEDS: ASPIRIN 81 MG ECTAB PO SCH (08:49)
[2021-05-08] MEDS: amLODIPine BESYLATE 5 MG TAB PO SCH (08:49)
[2021-05-08] MEDS: COLLAGENASE OINT 30 GM TUBE TOP SCH (08:49)
[2021-05-08] MEDS: CLOPIDOGREL BISULFATE 75 MG TAB PO SCH (08:49)
[2021-05-08] MEDS: GABAPENTIN 300 MG CAP PO SCH ×2 (08:50→20:03)
[2021-05-08] MEDS: LOSARTAN POTASSIUM 25 MG TAB PO SCH (08:50)
[2021-05-08] MEDS: MULTIVITAMIN TAB PO SCH (08:50)
[2021-05-08] MEDS: ADVANCED PROBIOTIC 1250 MG CAPSULE PO SCH ×2 (08:50→20:03)
[2021-05-08] MEDS: DOCUSATE SODIUM 100 MG CAP PO SCH ×2 (08:50→20:04)
--- NOTE | 2021-05-08 09:40 | Orthopedic Progress Note ---
Date of Service May 08, 2021 Assessment & Plan (1) Acute osteomyelitis of right calcaneus: Plan: s/p POD #3 Right below-knee amputation. Continue daily dressing changes. PT/OT for bed to chair transfers/ ADL's Pain management as written Will need [facility] stay vs SNF Orthopedics will sign off at this time. Instructions placed in DC section. Please call with questions. Admission and Anticipated Discharge Date Admission Date: April 29, 2021 Subjective POD 3 Pt sitting up in bed, awake, alert. No complaints currently. States he was having some pain earlier in the AM secondary to having it moved around with staff helping him. Pain controlled currently. Physical Exam Physical Exam: Dressing C/D/I. Dressing removed. Incision well approximated. Mild bleeding from central portion. No erythema. Minimal swelling. Wound redressed with adaptic, 4x4's, kerlix, and charlee wrap. Results & Data ([facility]) Vital Signs (Past 12 Hours) Vital Signs Temp Pulse Pulse Resp BP Pulse Ox 05/08/21 07:17 97 H 05/08/21 05:47 36.7 C 77 18 146/68 H 96 05/07/21 23:51 37.7 C H 76 20 146/74 H 94 05/07/21 23:11 77
--- NOTE | 2021-05-08 14:06 | Hospitalist Progress Note ---
Date of Service May 08, 2021 Assessment & Plan (1) Hyperglycemia due to type 1 diabetes mellitus: (2) Acute osteomyelitis of right calcaneus: Plan: This is a 65-year-old male presents with hyperglycemia, nonhealing right foot necrotic ulcer -osteomyelitis and abscess. #.Nonhealingdiabetic right heel necrotic ulcer, questionable gas forming organisms. #. R heel Osteomyelitis. #. Gram-positive bacteremia The patient is following with Orthopedics and Vascular Surgery and also ID. If not improving and if there is MRSA in the infection ID recommended below-knee amputation. 04/29 blood culture: Positive for E faecalis 04/30 wound culture positive for E faecalis, MRSA, gram-positive cocci 04/30 status post right heel debridement of calcaneal OM, incision and drainage of abscess of right heel, irrigation and debridement of diabetic neuropathic ulcer of the heel measuring 6x8x1 cm Orthopedics on board: Status post right BKA 05/05, dressing changed 05/07 Patient's 04/29 blood culture grew Enterococcus faecalis along with 04/30 wound culture growing E faecalis, MRSA and gram-positive cocci. 05/01 echo with EF of 60 to 65%, grade 2 diastolic dysfunction, mild TR. Repeat blood culture 05/01: Negative growth so far; another repeat blood culture sent 05/07 - NG at 24 hours Re-Discussed with ID 05/04, stop date for antibiotic May 14 if patient undergoes BKA. Can change to ampicillin after BKA. ---> Vancomycin changed to ampicillin 05/06, stop date May 14. Continue to monitor. Follow-up final results on repeat blood culture. Doubt th at they will be positive. #. Type 1 diabetes: Patient presented with hypoglycemia, glycemic pharmacy on board. #. Peripheral vascular disease and HLD Status post stent in right SFA. Continue statin/Plavix/aspirin #. Hypertension: Continue amlodipine. Hold losartan for KEN. #. KEN over CKD: Baseline creatinine 1.4-1.7. Resolved DVT prophylaxis:SCDs, s/p OR, chemical prophylaxis per orthopedic recommendation. DISPOSITION: med tele. Needs placement. PT/OT. Medically stable for dischar ge if okay with orthopedics. Code: Full Admission and Anticipated Discharge Date Admission Date: April 29, 2021 Subjective Patient was lying in bed, on room air, NAD, no acute events overnight per patient. Patient eating and moving bowels okay. Patient denies headache/ch ills/chest pain/pain/palpitations/other review of symptoms. Physical Exam Physical Exam: GENERAL: Alert and oriented x3. NAD, on RA. HEENT: No pallor, no icterus. Pupils equal, round and reactive to light. Oral mucosa moist. NECK: No JVD, no neck masses. HEART: S1 and S2 heard. Regular rate and rhythm. No murmur, no gallop. RESPIRATORY SYSTEM: Normal AP diameter. No accessory muscle use. No wheezing, no crackles. ABDOMEN: Soft, bowel sounds present, nontender, no distention. CENTRAL NERVOUS SYSTEM: No facial droop. Speech is clear. Obeys simple commands. Moves extremities. EXTREMITIES: No edema LLE no erythema seen. RLE -status post BKA with clean dressing without soakage. Results & Data Results & Data ([facility]) Vital Signs (Past 12 Hours) Vital Signs Temp Pulse Pulse Pulse Resp BP BP 05/08/21 11:29 37.1 C 58 L 16 145/77 H 05/08/21 07:47 37.1 C 70 16 152/80 H 05/08/21 07:17 97 H 05/08/21 05:47 36.7 C 77 18 146/68 H Pulse Ox 05/08/21 11:29 94 05/08/21 07:47 95 05/08/21 07:17 05/08/21 05:47 96
[2021-05-08] MEDS: SENNA 8.6 MG TAB PO SCH (20:02)
[2021-05-08] MEDS: ATORVASTATIN 40 MG TAB PO SCH (20:04)
[2021-05-09] MEDS: AMPICILLIN 2,000 MG in SODIUM CHLOR 0.9% AD-VAN 100 ML IV SCH ×2 (05:46→11:58)
[2021-05-09] MEDS ORDERED: INSULIN GLARGINE SOLOSTAR 100 UNITS/ML 3 ML PEN SC SCH ×2 (09:00)
[2021-05-09] MEDS: INSULIN ASPART 100 UNITS/ML 3 ML PEN SC SCH ×2 (09:30→12:01)
[2021-05-09] MEDS: ADVANCED PROBIOTIC 1250 MG CAPSULE PO SCH (10:30)
[2021-05-09] MEDS: amLODIPine BESYLATE 5 MG TAB PO SCH (10:31)
[2021-05-09] MEDS: LOSARTAN POTASSIUM 25 MG TAB PO SCH (10:31)
[2021-05-09] MEDS: MULTIVITAMIN TAB PO SCH (10:31)
[2021-05-09] MEDS: DOCUSATE SODIUM 100 MG CAP PO SCH (10:31)
[2021-05-09] MEDS: ASPIRIN 81 MG ECTAB PO SCH (10:31)
[2021-05-09] MEDS: GABAPENTIN 300 MG CAP PO SCH (10:31)
[2021-05-09] MEDS: COLLAGENASE OINT 30 GM TUBE TOP SCH (10:39)
[2021-05-09] MEDS: CLOPIDOGREL BISULFATE 75 MG TAB PO SCH (11:45)
--- NOTE | 2021-05-09 17:25 | Discharge Summary ---
Date of Service May 09, 2021 Admission HPI Per Admitting Provider DATE OF ADMISSION: 04/29/2021. CHIEF COMPLAINT: Hyperglycemia and right heel diabetic foot ulcer. HISTORY OF PRESENT ILLNESS: This 65-year-old male with past medical history significant for type 1 diabetes, diabetic neuropathy, hypertension, peripheral vascular disease, diabetic retinopathy, vitreous hemorrhage of the right eye, pseudophakia, trigeminal neuralgia, presents with hyperglycemia. The patient lives with his mother. The patient says he was not feeling well today and brought in here and found to have high blood sugars. He is also having ongoing nonhealing right foot ulcer in the heel region. X-rays done in the ER showing progressive osteomyelitis of the calcaneus, also soft tissue swelling and soft tissue gas of the posterior heel suspected wound ulceration or gas forming organism. The patient is otherwise afebrile. The patient complained of some discomfort in the right foot, but no other complaints. Denies any chest pain, no shortness of breath, no cough, was feeling nauseous earlier, but that improved. No abdominal pain. Appetite is okay. No headache, no blurred visions, no runny nose, no sore throat. Normal bowel and bladder movements. He says he ambulates with a walker. He also had right lower extremity SFA drug- eluting stent placement on 04/07/2021, following with Vascular Surgery and also saw Infectious Disease. Infectious Disease was recommending below-knee amputation. The patient currently follows with Wound Care, on doxycycline. The wound is foul smelling. ALLERGIES: LEVAQUIN AND SHRIMP FLAVOR. PAST MEDICAL HISTORY: As mentioned above. PAST SURGICAL HISTORY: Amputation of the right 3rd toe and part of great toe and second toe, colonoscopy, excision of sebaceous cyst over the right shoulder, I and D of left foot, I and D for abscess of the right shoulder, cataract surgery, partial removal of the eye fluid, tympanostomy tubes. MEDICATIONS: The patient is on amlodipine 5 mg p.o. a.m., aspirin 81 mg p.o. daily, atorvastatin 40 mg p.o. at bedtime, Plavix 75 mg p.o. a.m., Collagenase topical ointment, doxycycline 100 mg p.o. b.i.d., Merari-D 12-hour 1 tablet p.o. b.i.d., gabapentin 600 mg p.o. b.i.d., insulin glargine 35 units sub cutaneous a.m., losartan 25 mg p.o. a.m. FAMILY HISTORY: Significant for father has diabetes, hypertension. Brother has diabetes. SOCIAL HISTORY: No smoking. Alcohol social. No drug use. REVIEW OF SYSTEMS: As per HPI. Rest of the review of systems is negative. Admission Exam Per Admitting Provider GENERAL: The patient is of moderate build, not in acute distress. VITAL SIGNS: Temperature 36.9, pulse 111, respiratory rate 24, blood pressure 150/66 and oxygen 97%. HEENT: Pupils equal, round and reactive to light. Oral mucosa moist. NECK: No JVD, no neck masses. CARDIOVASCULAR: S1 and S2 heard. Regular rate and rhythm. No murmur, no gallop. RESPIRATORY SYSTEM: Normal AP diameter. No accessory muscle use. No wheezing, no crackles. ABDOMEN: Soft, bowel sounds present, nontender, no distention. CENTRAL NERVOUS SYSTEM: Cranial nerves II-XII grossly intact, nonfocal. EXTREMITIES: Right foot foul smelling necrotic heel wound seen. Principal Diagnosis Acute osteomyelitis of right calcaneus status post right BKA Gram-positive bacteremia-E faecalis Discharge Exam GENERAL: Alert and oriented x3. NAD, on RA. HEENT: No pallor, no icterus. Pupils equal, round and reactive to light. Oral mucosa moist. NECK: No JVD, no neck masses. HEART: S1 and S2 heard. Regular rate and rhythm. No murmur, no gallop. RESPIRATORY SYSTEM: Normal AP diameter. No accessory muscle use. No wheezing, no crackles. ABDOMEN: Soft, bowel sounds present, nontender, no distention. CENTRAL NERVOUS SYSTEM: No facial droop. Speech is clear. Obeys simple commands. Moves extremities. EXTREMITIES: No edema LLE no erythema seen. RLE -status post BKA with clean dressing without soakage. Discharge Data Allergies Allergy/AdvReac Type Severity Reaction Status Date / Time levofloxacin AdvReac Mild "nervous" Verified 05/01/21 13:09 shrimp AdvReac Mild NAUSEA Verified 05/01/21 13:09 Consultations 04/29/21 20:10 ED Decision to Admit Stat 04/30/21 07:00 Consult Orthopedic Surgery Routine 05/02/21 08:00 Consult Infectious Diseases Routine Procedures Performed Operation Date: 04/30/21 11:30 Actual Procedures p Debridement osteomyelitis right Calcaneus, evacuation abscess, irrigation and debridement heel ulcer(Right) - Goldy Reynolds DO Operation Date: 05/05/21 15:20 Actual Procedures p Right Below Knee Amputation(Right) - Goldy Reynolds DO Ordered Studies 05/05/21 15:43 US - OR guided needle placemen Routine Hospital Course (1) Hyperglycemia due to type 1 diabetes mellitus: (2) Acute osteomyelitis of right calcaneus: This is a 65-year-old male presents with hyperglycemia, nonhealing right foot necrotic ulcer -osteomyelitis and abscess. He was managed for the following while in hospital: #.Nonhealingdiabetic right heel necrotic ulcer, questionable gas forming organisms. #. R heel Osteomyelitis. #. Gram-positive bacteremia The patient is following with Orthopedics and Vascular Surgery and also ID. If not improving and if there is MRSA in the infection ID recommended below-knee amputation. 04/29 blood culture: Positive for E faecalis 04/30 wound culture positive for E faecalis, MRSA, gram-positive cocci 04/30 status post right heel debridement of calcaneal OM, incision and drainage of abscess of right heel, irrigation and debridement of diabetic neuropathic ulcer of the heel measuring 6x8x1 cm Orthopedics on board: Status post right BKA 05/05, dressing changed 05/07 Patient's 04/29 blood culture grew Enterococcus faecalis along with 04/30 wound culture growing E faecalis, MRSA and gram-positive cocci. 05/01 echo with EF of 60 to 65%, grade 2 diastolic dysfunction, mild TR. Repeat blood culture 05/01: Negative growth so far; another repeat blood culture sent 05/07 - NG at 48 hours Re-Discussed with ID 05/04, stop date for antibiotic May 14 if patient undergoes BKA. Can change to ampicillin after BKA. ---> Vancomycin changed to ampicillin 05/06, stop date May 14. Daily dressing changes upon discharge, follow-up with orthopedics. #. Type 1 diabetes: Patient presented with hypoglycemia, glycemic pharmacy on board. #. Peripheral vascular disease and HLD Status post stent in right SFA. Continue statin/Plavix/aspirin #. Hypertension: Continue home meds #. KEN over CKD: Baseline creatinine 1.4-1.7. Resolved Full code Patient discharged to [facility] with following instruction at time discharge: Follow-up with your primary care physician in a week time. Take medications as prescribed. You will be on IV ampicillin for 5 more days, stop date being May 14, 2021. PT/OT with orthopedics recommendation. Daily dressing changes per orthopedics and follow-up with orthopedics in 14 days from the day of surgery. Establish and maintain close follow-up with [facility] Your diabetic medication has been changed. New recommendations are Lantus 33 units daily plus NovoLog 5 units with meals [8 units if larger meal with more carbohydrates]. Total Time Total Time Spent Total Time Spent (In Minutes): 40 Discharge Plan Discharge Items Patient Disposition: Transfer Inpatient Rehab Fac Reason For Visit: HYPERGLYCEMIA, FOOT ULCER Discharge Diagnosis: Acute osteomyelitis of right calcaneus status post right BKA Gram-positive bacteremia-E faecalis Activity: As commented below Activity Comment: PT/OT with orthopedics recommendation. Non-emergency contact: Primary Care Provider Call non-emergency contact if: you have any medication questions, your pain is worsening and your temperature is above 101 Follow-up/Referrals: Goldy Reynolds DO [Surgeon] - 05/24/21 9:50 am ([facility] [address] [place] [address] [id number] ) Chalo Tan DO [Primary Care Provider] - Diet: Carb Count or DM1 Addtl Attending Provider Instructions: Follow-up with your primary care physician in a week time. Take medications as prescribed. You will be on IV ampicillin for 5 more days, stop date being May 14, 2021. PT/OT with orthopedics recommendation. Daily dressing changes per orthopedics and follow-up with orthopedics in 14 days from the day of surgery. Establish and maintain close follow-up with [facility] Your diabetic medication has been changed. New recommendations are Lantus 33 units daily plus NovoLog 5 units with meals [8 units if larger meal with more carbohydrates]. Addtl Tube Bender Hand Provider Instructions: Daily dressing changes to RLE stump wound Elevate RLE on at least one pillow regularly Watch for increased redness or drainage from the wound. Increased swelling. Temperature of 101.5 or greater. Increased pain not relieved by pain medications. Follow up with Dr. Reynolds in 14 days from the day of surgery. Please call for appointment. Pending Studies at Discharge: Yes (05/07 blood culture final results.) Stand-Alone Forms: My [facility] Skilled Items Patient informed of condition?: Yes DNR: No Discharge Level of Care: Acute rehab Communicable Disease: No Discharge Prognosis: Stable Lines: Peripheral IV Urinary Catheter: No Medications and DC Order Prescriptions: New acetaminophen 325 mg Tablet 650 mg PO Q4H PRN (Reason: pain) Qty: 60 RF: 0 oxycodone 5 mg Tablet 5 mg PO Q6H PRN (Reason: pain) Qty: 8 RF: 0 docusate sodium 100 mg Capsule 100 mg PO DAILY Qty: 30 RF: 0 Advanced Probiotic 625 mg (10 billion cell) Capsule 2 cap PO BID 7 Days Qty: 28 RF: 0 insulin aspart U-100 [Novolog Flexpen U-100 Insulin] 100 unit/mL (3 mL) Insulin Pen 5 unit SC ACHS Qty: 15 RF: 0 ampicillin sodium 2 gram recon soln 2 g IV Q6H Qty: 22 RF: 0 Continued losartan 25 mg tablet 25 mg PO QAM RF: 0 Santyl 250 unit/gram ointment 1 applic topical DAILY 14 Days Qty: 30 RF: 1 amlodipine 5 mg tablet 5 mg PO QAM RF: 0 gabapentin 300 mg capsule 600 mg PO BID RF: 0 atorvastatin 40 mg Tablet 40 mg PO HS Qty: 30 RF: 0 fexofenadine-pseudoephedrine [Merari-D 12 Hour] 60-120 mg Tablet Extended Release 12 Hr 1 tab PO BID Qty: 14 RF: 0 aspirin [Adult Aspirin Regimen] 81 mg tablet,delayed release (DR/EC) 81 mg PO DAILY Qty: 30 RF: 11 clopidogrel 75 mg Tablet 75 mg PO QAM Qty: 30 RF: 0 Changed Lantus Solostar U-100 Insulin 100 unit/mL (3 mL) insulin pen 33 unit SUBCUT QAM Qty: 0 RF: 0 Discontinued doxycycline hyclate 100 mg tablet 100 mg PO bid 14 Days Qty: 28 RF: 0 Discharge Orders: Discharge Order (Routine); Ordered 05/09/21 Ordered By: Jm Reese Admission Data Admit Date/Time: 04/29/21 21:29 Attending Provider: Jm Reese Admit Provider: Dion Schroeder Primary Care Provider: Chalo Tan Other Providers: [facility] ; Dion Schroeder ; Candelario Bowman ; Goldy Reynolds ; Kenny Webb ; Kim Sexton ; Kwabena iLriano ; Emely Young ; Jarocho Owen ; Immanuel Chaidez ; Nathan Fernández ; Clifton Dennis. ; Immanuel Sheriff ; Rajinder Hunter ; Seven Wilkinson ; César Nicholson ; Gurpreet Carlos ; Emely Feldman ; Stiven Marcos ; Brian Landis ; Radha Dacosta ; Bravo Fernandez ; Jen Melendez ; Param Mancia ; Ari Issa ; Best Sanchez ; Amish Vega I. ; Joel Pantoja II ; Katie Lorenz. ; Nathan Gage. ; Prabhjot Romo. Other Interventions: Discharge Summary Assessment (RN) Last Done: 05/09/21 12:47
--- NOTE | 2021-05-17 06:17 | Coding Query ---
SEPSIS To promote full compliance with coding requirements relating to patient care, physician participation is requested in all cases of slip bridge operator uncertainty. Please assist us with the question(s) below: In responding to this query, please exercise your independent professional judgement. The fact that a question is asked does not imply that any particular answer is desired or expected. We appreciate your clarification on this issue. Throughout the medical record, you have clearly documented a localized infection and your patient has clinical evidence of a generalized sepsis or severe sepsis. The term urosepsis is a nonspecific entity and is coded as an UTI. If the patient has sepsis, severe sepsis, from an urinary source or some other source, please clarify in your response below. The medical record reflects the following clinical findings: 05/02 Hospitalist note documented Sepsis/POA. DS - bacteremia. Seeking to clarify if Sepsis was treated during this IP stay. Please check below & thank you . YOSSI Jorgensen [facility] ____ ( )Bacteremia (Nonspecific laboratory finding of bacteria in the blood) Specify Organism () Present on Admission () Not present on admission () Unable to clinically determine ( ) Septicemia (Systemic disease associated with the presence of pathogenic microorganisms in the blood): Specify Organism () Present on Admission () Not present on admission () Unable to clinically determine ( x) Sepsis Specify Organism Specify Associated Condition/Diagnosis (x) Present on Admission () Not present on admission () Unable to clinically determine ( ) Severe Sepsis (Sepsis associated with acute organ dysfunction) Specify Organism Specify Associated Condition/Diagnosis () Present on Admission () Not present on admission () Unable to clinically determine ( ) Septic Shock (Severe sepsis with acute circulatory failure, unexplained by other causes) () Present on Admission () Not present on admission () Unable to clinically determine ( ) Other, patient has: MTDD
== END 2021-05-09 13:20 | DRG 854 ==
LOC: ED 18:04 → SUATTDRO 21:29 → 2W 21:29

== ENCOUNTER 2022-08-24 11:49 | Inpatient (IN) ==
[2022-08-24] MEDS ORDERED: SODIUM CHLORIDE 0.9% 1000ML 1,000 ML IV SCH (12:15)
--- NOTE | 2022-08-24 12:18 | Emergency Department Note ---
Impression & Plan Weakness, Acute dehydration, KEN (acute kidney injury), Acute hyperglycemia ED Provider Note NAME: SAVANA FISCHER AGE: 66 SEX: M : 1955 ARRIVES VIA: Ambulance INFORMANT: [Patient][EMS, nursing] ED PROVIDER(S): [Jonathan Lopez MD] CHIEF COMPLAINT: Weakness HISTORY OF PRESENT ILLNESS: The patient is a 66-year-old male who has diabetes. He has had previous CVAs. He did slide out of bed about 2 days ago but did not suffer any serious injury. Today, his sugar was high and he was quite weak. He was brought for evaluation. The patient currently denies any pain, he is not short of breath. He has not had fever, vomiting or diarrhea. As per nursing staff, the patient lives with a brother and there has been concern that the patient may require care facility placement. PMHx/PSHx: See Below SOCIAL HISTORY: See Below. PHYSICAL EXAM: GENERAL: Patient is in no acute distress. HEENT: No acute trauma, normocephalic atraumatic, mucous membranes dry. No nasal congestion. NECK: No stridor, no adenopathy, no meningismus, trachea is midline. LUNGS: Clear to auscultation bilaterally, no wheeze, no rhonchi, breath sounds equal. HEART: Without murmurs gallops or rubs, regular rate and rhythm. ABDOMEN: Soft, nontender, bowel sounds positive, no peritonitis. EXTREMITIES: No cyanosis or edema. Right below the knee amputation. No left leg deformity noted. NEUROLOGIC: Awake and alert, interactive, no acute motor or sensory deficits, no focal weakness. SKIN: No rash, no jaundice, no diaphoresis. Groin: No evidence for penile or scrotal erythema. DIFFERENTIAL DIAGNOSIS: Bacteremia or sepsis, dehydration, renal or liver failure, debilitation, UTI, COVID-19 or influenza, among others. EMERGENCY DEPARTMENT COURSE/PROCEDURES: Prior/Outside records reviewed: EMS records. ECG per my interpretation: Indication was weakness. The ECG shows a normal sinus rhythm with a rate of 91. There is significant baseline artifact. No obvious ST elevation. No PVCs. The QTc is 410. Continuous Cardiac Monitoring per my interpretation: An order was placed for continuous cardiac monitoring. The monitor shows a rate of 96 with normal sinus rhythm. MEDICAL DECISION MAKING: There is no leukocytosis or concerning anemia. There is a normal platelet count. Creatinine was elevated consistent with some dehydration and acute kidney injury. Lactic acid level was elevated, likely secondary to dehydration. Glucose was high at over 400. There were some liver enzyme elevations although the bilirubin was normal. ECG showed a normal sinus rhythm, no ischemia. Cardiac enzyme testing x1 was not consistent with acute cardiac injury. TSH was slightly elevated. COVID, influenza and RSV test are pending. Chest film did not show pneumonia or CHF per my review. On exam, the patient appeared dehydrated. He was not febrile or toxic. The patient received IV saline, 2 L. Patient presents with increasing weakness, high blood sugar. There is concern that he is no longer able to care for himself as an outpatient. Case management was consulted. Patient requires a hospital stay for his acute kidney injury, his dehydration and hyperglycemia. Luckily, he does not appear to be in DKA. I suspect his laboratory values and strength will improve with hydration and better glucose control. I did speak with the patient and case management, the on-call hospitalist was consulted. DISPOSITION: Patient's presentation and findings warrant a hospital stay. Past Med/Surg History Medical History Acute hyperglycemia Acute thoracic back pain Ambulatory dysfunction CKD (chronic kidney disease) CKD (chronic kidney disease) stage 3, GFR 30-59 ml/min COVID-19 COVID-19 CVA (cerebral vascular accident) Diabetic neuropathy Diabetic ulcer of right great toe Difficult airway for intubation Glidescope 2012 Dizziness DM type 1 (diabetes mellitus, type 1) [place] frequently History of heart block Patient presented to [facility] 03/2013 for elective L foot I&D. On induction with propofol in OR pt went into 3rd degree HB. Pt intubated and given 1 dose of Epi, which resolved HB but diffuse ST depression remained. Surgery aborted, pt to PACU, where ST segments returned to baseline and pt was extubated. Cardio consulted, echo WNL, no etiology discovered for HB, ST depression felt 2/2 strain from Epi or apnea. No further testing or intervention recommended. History of osteomyelitis HLD (hyperlipidemia) HTN (hypertension) Hyperlipidemia Low back pain Osteomyelitis of left foot history of Pulmonary nodule PVD (peripheral vascular disease) Vertigo history of--hypoglycemia Surgical History H/O eye surgery both eyes, corrective lens implant History of colonoscopy 8 years ago S/P amputation of lesser toe "right second and third toe" Family History Brother Diabetes Social History Smoking Status: Never smoker Second Hand Exposure: No; Hx Alcohol Use: Yes Alcohol type: hard liquor Alcohol Intake Frequency: 2-4 x/Month Hx Substance Use: No Preferred Language: Bengali Communication Ability: Effective [employer] Technician Required: No Beliefs That Will Affect Care: None marital status: Single Current Living Situation: Family Current Living Situation Comment: Lives with brother current occupational status: retired How many Children do You have: 0 Feels Safe at Home: Yes caffeine: No Assistive Devices: Glasses and Walker Allergies Allergies Allergy/AdvReac Type Severity Reaction Status Date / Time levofloxacin AdvReac Mild "nervous" Verified 05/01/21 13:09 shrimp AdvReac Mild NAUSEA Verified 05/01/21 13:09 Home Meds Home Medications Medication Instructions Recorded Confirmed amlodipine 5 mg tablet 5 mg PO QAM 10/19/18 04/29/21 gabapentin 300 mg capsule 600 mg PO BID 01/17/21 04/29/21 losartan 25 mg tablet 25 mg PO QAM 01/17/21 04/29/21 Previous Rx's Medication Instructions Recorded atorvastatin 40 mg tablet 40 mg PO HS #30 tabs 07/08/20 fexofenadine 60 mg-pseudoephedrine 1 tab PO BID #14 tabs 07/08/20 ER 120 mg tablet,ext.release,12 hr (Merari-D 12 Hour) clopidogrel 75 mg tablet 75 mg PO QAM #30 tabs 12/31/20 aspirin 81 mg tablet,delayed 81 mg PO DAILY #30 tabs 04/07/21 release (Adult Aspirin Regimen) collagenase clostridium histo. 250 1 applic topical DAILY 14 days #30 04/20/21 unit/gram topical ointment (Santyl) grams acetaminophen 325 mg tablet 650 mg PO Q4H PRN pain #60 tabs 05/09/21 ampicillin sodium 2 gram 2 g IV Q6H #22 ea 05/09/21 intravenous solution docusate sodium 100 mg capsule 100 mg PO DAILY #30 caps 05/09/21 insulin aspart U-100 100 unit/mL 5 unit (0.05 mL) SC ACHS #15 mL 05/09/21 (3 mL) subcutaneous pen (Novolog FlexPen U-100 Insulin aspart) insulin glargine 100 unit/mL (3 33 unit (0.33 mL) subcut QAM #0 mL 05/09/21 mL) subcutaneous pen (Lantus Solostar U-100 Insulin) oxycodone 5 mg tablet 5 mg PO Q6H PRN pain #8 tabs 05/09/21 Results & Data (ED) Vital Signs Vital Signs - 24 hr 08/24/22 12:03 08/24/22 12:11 Temperature 36.7 C Temperature Source Oral Pulse Rate 96 H 91 H Pulse Rhythm Regular Pulse Strength Normal Respiratory Rate 20 Respiratory Effort / Characteristics Non-Labored Spontaneous Respiratory Depth Normal Respiratory Pattern Regular Blood Pressure 126/72 Blood Pressure Mean 90 Blood Pressure Position Lying Pulse Oximetry 97 Oxygen Delivery Method Room Air Sepsis Recent Fever Within 48 Hours No Sepsis New/Unexplained Change in Mental Status N/A Sepsis Action Taken by Nursing No Action Required Home Medications Current Medication List: was personally reviewed by me Laboratory Data Attestation: I reviewed the patient's lab results. 08/24/22 12:17 08/24/22 12:17 Lab Results 08/24/22 08/24/22 08/24/22 Range/Units 12:17 12:17 12:17 WBC 10.01 (4.8-10.8) K/ul RBC 5.12 (4.70-6.10) M/uL Hgb 15.4 (14.0-18.0) g/dl Hct 46.6 (42.0-52.0) % MCV 91.0 (80.0-100.0) fL MCH 30.1 (25.0-34.0) pg MCHC 33.0 (32.0-36.0) g/dL RDW Std Deviation 44.1 (36.4-46.3) fL RDW Coeff of Дмитрий 13.2 (11.5-14.5) % Plt Count 254 (130-400) K/uL MPV 11.9 (9.4-12.4) fL Immature Gran % (Auto) 0.4 % Neut % (Auto) 80.2 % Lymph % (Auto) 10.0 % [place] % (Auto) 8.9 % Eos % (Auto) 0.2 % Baso % (Auto) 0.3 % Neut # (Auto) 8.03 H (1.40-6.50) K/uL Lymph # (Auto) 1.00 L (1.2-3.4) K/uL [place] # (Auto) 0.89 H (0.11-0.59) K/uL Eos # (Auto) 0.02 (0-0.50) K/uL Baso # (Auto) 0.03 (0-0.2) K/uL Immature Gran # (Auto) 0.04 (0.01-0.20) K/uL Sodium 142 (136-145) mmol/L Potassium 4.5 (3.5-5.1) mmol/L Chloride 107 (98-107) mmol/L Carbon Dioxide 26 (21-32) mmol/L Anion Gap 9 (3-11) BUN 43 H (6-23) mg/dl Creatinine 1.91 H (0.6-1.4) mg/dl Est Cr Clr Drug Dosing 37.6 ml/min Est GFR ( Amer) 42.0 ml/min Est GFR (Non-Af Amer) 36.2 ml/min BUN/Creatinine Ratio 22.5 H (10-20) Glucose 417 H* (70-99(Fasting)) mg/dl Lactate 2.6 H* (0.4-2.0) mmol/L Calcium 9.9 (8.5-10.1) mg/dl Magnesium 2.0 (1.7-2.4) mg/dl Total Bilirubin 0.8 (0.2-1.0) mg/dl AST 106 H (13-39) U/L ALT 112 H (7-52) U/L Alkaline Phosphatase 171 H (34-104) U/L Troponin I High Sens 16.3 (0-20) pg/ml Total Protein 6.9 (6.0-8.3) gm/dl Albumin 3.8 (3.4-5.0) gm/dl Globulin 3.1 (2.5-4.0) gm/dl Albumin/Globulin Ratio 1.2 (0.9-2) TSH (0.300-4.500) uIu/ml 08/24/22 Range/Units 12:17 WBC (4.8-10.8) K/ul RBC (4.70-6.10) M/uL Hgb (14.0-18.0) g/dl Hct (42.0-52.0) % MCV (80.0-100.0) fL MCH (25.0-34.0) pg MCHC (32.0-36.0) g/dL RDW Std Deviation (36.4-46.3) fL RDW Coeff of Дмитрий (11.5-14.5) % Plt Count (130-400) K/uL MPV (9.4-12.4) fL Immature Gran % (Auto) % Neut % (Auto) % Lymph % (Auto) % [place] % (Auto) % Eos % (Auto) % Baso % (Auto) % Neut # (Auto) (1.40-6.50) K/uL Lymph # (Auto) (1.2-3.4) K/uL [place] # (Auto) (0.11-0.59) K/uL Eos # (Auto) (0-0.50) K/uL Baso # (Auto) (0-0.2) K/uL Immature Gran # (Auto) (0.01-0.20) K/uL Sodium (136-145) mmol/L Potassium (3.5-5.1) mmol/L Chloride (98-107) mmol/L Carbon Dioxide (21-32) mmol/L Anion Gap (3-11) BUN (6-23) mg/dl Creatinine (0.6-1.4) mg/dl Est Cr Clr Drug Dosing ml/min Est GFR ( Amer) ml/min Est GFR (Non-Af Amer) ml/min BUN/Creatinine Ratio (10-20) Glucose (70-99(Fasting)) mg/dl Lactate (0.4-2.0) mmol/L Calcium (8.5-10.1) mg/dl Magnesium (1.7-2.4) mg/dl Total Bilirubin (0.2-1.0) mg/dl AST (13-39) U/L ALT (7-52) U/L Alkaline Phosphatase (34-104) U/L Troponin I High Sens (0-20) pg/ml Total Protein (6.0-8.3) gm/dl Albumin (3.4-5.0) gm/dl Globulin (2.5-4.0) gm/dl Albumin/Globulin Ratio (0.9-2) TSH 4.725 H (0.300-4.500) uIu/ml Administered Medications Discontinued Medications Sodium Chloride (Nss 1000ml) 1,000 mls @ 999 mls/hr IV .Q1H1M [place] Stop: 08/24/22 13:15 Last Admin: 08/24/22 12:30 Dose: 999 mls/hr Documented By: [id number] Imaging Data Radiologist's Impression: Chest X-Ray 08/24/22 12:07 XR chest 1V portable CLINICAL HISTORY: weakness TECHNIQUE: Single frontal radiograph of the chest was obtained. Comparison: Comparison is made to chest radiograph 04/29/2021 FINDINGS: No lines and tubes are seen. Calcified aortic knob is seen. The lungs are clear. No evidence of pleural effusion or pneumothorax. IMPRESSION: No acute chest disease. ACT 112: Negative or not required by law. Electronically signed by: Mason Vazquez M.D. 08/24/2022 12:36 PM Discharge Plan Visit Data Chief Complaint: Weakness Stated Complaint: WEAKNESS, HYPERGLYCEMIA ED Provider: Jonathan Lopez Discharge Problem: Weakness, Acute dehydration, KEN (acute kidney injury), Acute hyperglycemia Patient Disposition: Admitted As Inpatient Condition: Fair Forms Stand Alone Forms: My [facility] Prescriptions Prescriptions: No Action losartan 25 mg tablet 25 mg PO QAM Santyl 250 unit/gram ointment 1 applic topical DAILY 14 Days Qty: 30 1RF amlodipine 5 mg tablet 5 mg PO QAM gabapentin 300 mg capsule 600 mg PO BID atorvastatin 40 mg Tablet 40 mg PO HS Qty: 30 0RF fexofenadine-pseudoephedrine [Merari-D 12 Hour] 60-120 mg Tablet Extended Release 12 Hr 1 tab PO BID Qty: 14 0RF aspirin [Adult Aspirin Regimen] 81 mg tablet,delayed release (DR/EC) 81 mg PO DAILY Qty: 30 11RF clopidogrel 75 mg Tablet 75 mg PO QAM Qty: 30 0RF acetaminophen 325 mg Tablet 650 mg PO Q4H PRN (Reason: pain) Qty: 60 0RF oxycodone 5 mg Tablet 5 mg PO Q6H PRN (Reason: pain) Qty: 8 0RF docusate sodium 100 mg Capsule 100 mg PO DAILY Qty: 30 0RF insulin aspart U-100 [Novolog FlexPen U-100 Insulin] 100 unit/mL (3 mL) Insulin Pen 5 unit SC ACHS Qty: 15 0RF Rx Instructions: 5 units with meals (8 units if has larger meal with more carbohydrates). ampicillin sodium 2 gram recon soln 2 g IV Q6H Qty: 22 0RF Rx Instructions: 2 gram q6h for 5 and half more days. Lantus Solostar U-100 Insulin 100 unit/mL (3 mL) insulin pen 33 unit SUBCUT QAM Qty: 0 0RF Referrals Referrals: Chalo Tan DO [Primary Care Provider] -
--- NOTE | 2022-08-24 12:38 | XRay Report ---
XR chest 1V portable CLINICAL HISTORY: weakness TECHNIQUE: Single frontal radiograph of the chest was obtained. Comparison: Comparison is made to chest radiograph 04/29/2021 FINDINGS: No lines and tubes are seen. Calcified aortic knob is seen. The lungs are clear. No evidence of pleur al effusion or pneumothorax. IMPRESSION: No acute chest disease. ACT 112: Negative or not required by law. Electronically signed by: Mason Vazquez M.D. 08/24/2022 12:36 PM
[2022-08-24 12:46] LABS: Basophils # (auto) 0.03 K/uL (0-0.2); Basophils % (auto) 0.3 %; Eosinophils # (auto) 0.02 K/uL (0-0.50); Eosinophils % (auto) 0.2 %; Hematocrit (blood only) 46.6 % (42.0-52.0); Hemoglobin 15.4 g/dl (14.0-18.0); Immature Granulocytes # (auto) 0.04 K/uL (0.01-0.20); Immature Granulocytes % (auto) 0.4 %; Mean Corpuscular Hemoglobin 30.1 pg (25.0-34.0); Mean Platelet Volume 11.9 fL (9.4-12.4); Monocytes # (auto) 0.89 K/uL (0.11-0.59); Monocytes % (auto) 8.9 %; Neutrophils # (auto) 8.03 K/uL (1.40-6.50); Neutrophils % (auto) 80.2 %; Platelet Count 254 K/uL (130-400); RDW Coefficient of Variation 13.2 % (11.5-14.5); RDW Standard Deviation 44.1 fL (36.4-46.3); Red Blood Count 5.12 M/uL (4.70-6.10); White Blood Count 10.01 K/ul (4.8-10.8)
[2022-08-24 13:07] LABS: Albumin Globulin Ratio 1.2 (0.9-2); Albumin Level 3.8 gm/dl (3.4-5.0); BUN Creatinine Ratio 22.5 (10-20); Bilirubin,Total 0.8 mg/dl (0.2-1.0); Calcium 9.9 mg/dl (8.5-10.1); Creatinine Clr Calc Pharmacy 37.6 ml/min; Est GFR (Non-African American) 36.2 ml/min; Globulin 3.1 gm/dl (2.5-4.0); Potassium 4.5 mmol/L (3.5-5.1); Total Protein 6.9 gm/dl (6.0-8.3); Troponin I High Sensitivity 16.3 pg/ml (0-20)
[2022-08-24] MEDS ORDERED: SODIUM CHLORIDE 0.9% 1000ML 1,000 ML IV ONE (13:09)
[2022-08-24 13:15] LABS: Thyroid Stimulating Hormone 4.725 uIu/ml (0.300-4.500)
[2022-08-24 13:23] LABS: Influenza A virus by PCR Negative (Neg); Influenza B virus by PCR Negative (Neg); RSV by PCR Negative (Neg)
[2022-08-24 13:47] LABS: SARS CoV2 RNA(COVID-19) Ceph POSITIVE (Negative)
[2022-08-24 13:53] LABS: T4 Free Thyroxine 0.85 ng/dl (0.61-1.60)
--- NOTE | 2022-08-24 14:11 | History & Physical Report ---
Date of Service August 24, 2022 Assessment & Plan (1) Weakness: (2) Acute worsening of stage 3 chronic kidney disease: (3) Fall: (4) Hyperglycemia due to type 1 diabetes mellitus: (5) SARS-CoV-2 positive: (6) Rhabdomyolysis: Plan This is a 66-year-old male who has significant past medical history of type 1 diabetes, diabetic neuropathy, diabetic proliferative retinopathy, HTN, HLD, PAD, CKD stage III, history of right BKA, history of CVA and history of osteomyelitis who presents to ED secondary to He fell off bed 2 days ago. Fall Ambulatory dysfunction in setting of fall and known right BKA with poor ambulatory status at baseline Generalized weakness Traumatic Rhabdomyolysis Lactic acidosis - resolved Acute worsening of CKD stage III in setting of dehydration Admit to telemetry Received 2 L IV fluid in ED CK ordered in ED, found to be elevated to 1733 Continue gentle maintenance hydration at 125 cc/h Repeat labs in a.m. Consult PT OT Transaminitis likely 2/2 rhabdo follow LFTS pt denies abd pain SARS COV 2 asymptomatic possibly playing role in weakness does not meet criteria for tx covid isolation will monitor T1DM with hyperglycemia, neuropathy, retinopathy Lantus/novolog per protocol consult glycemic pharmacist BSG still high despite 2L of IVF when pt reaches floor will discuss with nursing staff hx of R BKA PAD/PVD continue asa, statin, plavix HTN continue amlodipine hold losartan in setting of KEN DVT ppx: SQ Lovenox BID 30mg Dispo: med tele, PT/OT, pt likely to need placement, ED provider stated Brother unable to care for pt FULL CODE PCP: Britney Pt was seen and examined in collaboration with Dr. Rosario, please see addendum A total of 80 minutes were spent with greater than 50% of that time face to face with the patient, personally reviewing all current laboratories, imaging studies, past medication reconciliation, outpatient chart review, and discussion with specialists to collaborate care for the patient with attending. Please see attending documentation for corrections and/or additions. History of Present Illness Chief Complaint: Recent fall 2 days ago, now with weakness lower back pain and left knee pain. Primary Care Provider: Chalo Tan, DO This is a 66-year-old male who has significant past medical history of type 1 diabetes, diabetic neuropathy, diabetic proliferative retinopathy, HTN, HLD, PAD, CKD stage III, history of right BKA, history of CVA and history of osteomyelitis who presents to ED secondary to He fell off bed 2 days ago. Patient states he slid off. He denies hitting head or losing consciousness he had a hard time getting up and complained of back pain. He feels he was on the ground for 1/2 day. He was found by his brother. The brother he lives with had to call his other brother to help assist getting patient back to bed. Since event patient has been increasingly more weak and also complaining of low back pain as well as left knee pain. He denies any other injury. He has been taking his medications including his insulin. He denies any recent illness or sick contacts. He denies any fever, chills, sweats, lightheadedness, dizziness, chest pain, shortness breath, cough, URI symptoms, nausea, vomit, abdominal pain, change in his bowel or urinary habits. Per report from ER provider patient lives with his brother and there is c oncerned that he may require placement at facility. In ED patient remained hemodynamically stable. He was found to be hyperglycemic with blood sugars in the 400s. He also had a KEN with a BUN 43 and creatinine of 1.91. He did initially have lactic acidosis which resolved with 2 L of IV fluid. He did have a mild transaminitis with AST 106, ALT 112 and alk phosphatase 171. His SARS-CoV-2 was positive although asymptomatic. Chest x-ray negative for acute abnormality. Again he received 2 L bolus of IV fluid in ED. This resolved his lactic acidosis. His blood sugar was in the 360s after IV fluid. Patient appears to be a poor historian therefore uncertain if the history is accurate. Allergies Allergy/AdvReac Type Severity Reaction Status Date / Time levofloxacin AdvReac Mild "nervous" Verified 08/24/22 13:36 shrimp AdvReac Mild NAUSEA Verified 08/24/22 13:36 Home Medications Medication Instructions Recorded Confirmed Type amlodipine 5 mg tablet 5 mg PO QAM 10/19/18 08/24/22 History fexofenadine 60 mg-pseudoephedrine 1 tab PO BID #14 tabs 07/08/20 08/24/22 Rx ER 120 mg tablet,ext.release,12 hr (Merari-D 12 Hour) clopidogrel 75 mg tablet 75 mg PO QAM #30 tabs 12/31/20 08/24/22 Rx gabapentin 300 mg capsule 600 mg PO BID 01/17/21 08/24/22 History losartan 25 mg tablet 25 mg PO QAM 01/17/21 08/24/22 History aspirin 81 mg tablet,delayed 81 mg PO DAILY #30 tabs 04/07/21 08/24/22 Rx release (Adult Aspirin Regimen) acetaminophen 325 mg tablet 650 mg PO Q4H PRN pain #60 tabs 05/09/21 08/24/22 Rx docusate sodium 100 mg capsule 100 mg PO DAILY #30 caps 05/09/21 08/24/22 Rx insulin aspart U-100 100 unit/mL 5 unit (0.05 mL) SC ACHS #15 mL 05/09/21 08/24/22 Rx (3 mL) subcutaneous pen (Novolog FlexPen U-100 Insulin aspart) oxycodone 5 mg tablet 5 mg PO Q6H PRN pain #8 tabs 05/09/21 08/24/22 Rx insulin glargine 100 unit/mL (3 25 unit subcut QAM 08/24/22 08/24/22 History mL) subcutaneous pen (Lantus Solostar U-100 Insulin) Past Med/Surg History Medical History Acute hyperglycemia Acute thoracic back pain Ambulatory dysfunction CKD (chronic kidney disease) CKD (chronic kidney disease) stage 3, GFR 30-59 ml/min COVID-19 COVID-19 CVA (cerebral vascular accident) Diabetic neuropathy Diabetic ulcer of right great toe Difficult airway for intubation Glidescope 2012 Dizziness DM type 1 (diabetes mellitus, type 1) Fall Falls frequently History of heart block Patient presented to [facility] 03/2013 for elective L foot I&D. On induction with propofol in OR pt went into 3rd degree HB. Pt intubated and given 1 dose of Epi, which resolved HB but diffuse ST depression remained. Surgery aborted, pt to PACU, where ST segments returned to baseline and pt was extubated. Cardio consulted, echo WNL, no etiology discovered for HB, ST depression felt 2/2 strain from Epi or apnea. No further testing or intervention recommended. History of osteomyelitis HLD (hyperlipidemia) HTN (hypertension) Hyperlipidemia Low back pain Osteomyelitis of left foot history of Pulmonary nodule PVD (peripheral vascular disease) Vertigo history of--hypoglycemia Surgical History H/O eye surgery both eyes, corrective lens implant History of colonoscopy 8 years ago S/P amputation of lesser toe "right second and third toe" Family History Brother Diabetes Social History Smoking Status: Never smoker Second Hand Exposure: No; Hx Alcohol Use: Yes Alcohol type: hard liquor Alcohol Intake Frequency: 2-4 x/Month Hx Substance Use: No Preferred Language: Uzbek Communication Ability: Effective Appraisal Manager Required: No Beliefs That Will Affect Care: None marital status: Single Current Living Situation: Family Current Living Situation Comment: Lives with brother current occupational status: retired How many Children do You have: 0 Feels Safe at Home: Yes caffeine: No Assistive Devices: Glasses and Walker Review of Systems Review of Systems: All systems reviewed & are unremarkable except as noted in HPI & below Physical Exam Physical Exam: Constitutional: WD/WN, vitals as above, NAD, sitting up in bed, pleasant, conversing easily, decreased bed mobility Head: Normocephalic, Atraumatic Eyes: PERRL, conjunctivae normal, anicteric sclerae ENMT: external ear and nose normal, oropharynx normal with dry mucous membranes Neck: trachea midline, no thyromegaly normal visual inspection Respiratory: normal respiratory effort, lungs clear to auscultation, no wheeze, rales, rhonchi. Normal insp/exp effort, no accessory muscle use Cardiovascular: RRR, no murmur, no edema Vessels: no JVD or carotid bruit Chest: normal inspection of chest Abdomen: normal bowel sounds, soft, nontender, no hepatosplenomegaly Musculoskeletal: no cyanosis or clubbing, R BKA, LLE w/o deformity, superficial abrasion to lateral aspect of L knee Skin: no rashes, warm and dry normal turgor Neurologic: PERRL, EOMI, accommodation nl, no face palsy, no dysarthria CN's II-XI intact bilaterally and moves all extremities Psychiatric: A+Ox3 to basics only, euthymic affect Lymphatic: no cervical or axillary lymphadenopathy : deferred Results & Data Results & Data ([facility]) Vital Signs (Past 12 Hours) Vital Signs Temp Pulse Resp BP Pulse Ox O2 Del Method 08/24/22 14:00 88 98 Room Air 08/24/22 14:00 144/74 H 08/24/22 13:30 90 96 Room Air 08/24/22 13:30 125/79 08/24/22 13:00 89 96 Room Air 08/24/22 13:00 135/72 08/24/22 12:30 87 95 Room Air 08/24/22 12:30 127/70 08/24/22 12:00 92 Room Air 08/24/22 11:56 93 H 98 Room Air 08/24/22 12:11 91 H 08/24/22 12:03 36.7 C 96 H 20 126/72 97 Room Air Medications Administered Medication List Discontinued Medications Sodium Chloride (Nss 1000ml) 1,000 mls @ 999 mls/hr IV .Q1H1M [place] Stop: 08/24/22 13:15 Last Infusion: 08/24/22 13:41 Dose: 0 mls/hr Documented By: [id number] Admin: 08/24/22 12:30 Dose: 999 mls/hr Documented By: [id number] Sodium Chloride (Nss 1000ml) 1,000 mls @ 999 mls/hr IV .Q1H1M ONE Stop: 08/24/22 14:09 Last Admin: 08/24/22 13:41 Dose: 999 mls/hr Documented By: [id number] ECG Rate (beats per minute): 91 Rhythm: normal sinus Additional Comments: ekg viewed by me, poor quality in leads v2 and v5 COVID-19 Results Results COVID-19 Adm Lab Results: RBC 5.12 M/uL (4.70-6.10) 08/24/22 WBC 10.01 K/ul (4.8-10.8) 08/24/22 Hgb 15.4 g/dl (14.0-18.0) 08/24/22 Hct 46.6 % (42.0-52.0) 08/24/22 Plt Count 254 K/uL (130-400) 08/24/22 Neutrophils (%) (Auto) 80.2 % 08/24/22 Lymphocytes (%) (Auto) 10.0 % 08/24/22 Monocytes # (Auto) 0.89 K/uL (0.11-0.59) H 08/24/22 Eosinophils # (Auto) 0.02 K/uL (0-0.50) 08/24/22 Immature Granulocyte % (Auto) 0.4 % 08/24/22 Neutrophils # (Auto) 8.03 K/uL (1.40-6.50) H 08/24/22 Lymphocytes # (Auto) 1.00 K/uL (1.2-3.4) L 08/24/22 Monocytes # (Auto) 0.89 K/uL (0.11-0.59) H 08/24/22 Eosinophils # (Auto) 0.02 K/uL (0-0.50) 08/24/22 Basophils # (Auto) 0.03 K/uL (0-0.2) 08/24/22 Immature Granulocyte # (Auto) 0.04 K/uL (0.01-0.20) 3 Na 142 mmol/L (136-145) 08/24/22 K 4.5 mmol/L (3.5-5.1) 08/24/22 Cl 107 mmol/L (98-107) 08/24/22 CO2 26 mmol/L (21-32) 08/24/22 Anion Gap 9 (3-11) 08/24/22 BUN 43 mg/dl (6-23) H 08/24/22 Creatinine 1.91 mg/dl (0.6-1.4) H 08/24/22 BUN/Creatinine Ratio 22.5 (10-20) H 08/24/22 Glucose Level 417 mg/dl (70-99(Fasting)) H* 08/24/22 Ca 9.9 mg/dl (8.5-10.1) 08/24/22 Total Bilirubin 0.8 mg/dl (0.2-1.0) 08/24/22 AST/SGOT 106 U/L (13-39) H 08/24/22 ALT/SGPT 112 U/L (7-52) H 08/24/22 Alkaline Phosphatase 171 U/L (34-104) H 08/24/22 Total Protein 6.9 gm/dl (6.0-8.3) 08/24/22 Albumin 3.8 gm/dl (3.4-5.0) 08/24/22 Globulin 3.1 gm/dl (2.5-4.0) 08/24/22 Albumin/Globulin Ratio 1.2 (0.9-2) 08/24/22 Total CK 1733 U/L (30-223) H 08/24/22 COVID-19 PCR POSITIVE (Negative) A* 08/24/22 Influenza Virus Type A (PCR) Negative (Neg) 08/24/22 Influenza Virus Type B (PCR) Negative (Neg) 08/24/22 Chest X-Ray 08/24/22 Code Status & VTE Plan Code Status FULL CODE Supervising Physician Co-Signing Physician Notes Patient seen and examined. History notable for 66-year-old male with DM type I, diabetic neuropathy, retinopathy, right BKA, CVA, hypertension, osteomyelitis and other medical problems who was brought to the ER for evaluation after he fell off the bed 2 days ago and has been weaker since with some neck left knee pain and low back pain. Patient was found by brother after he was on the ground for about half today. Denies any respiratory symptoms. Exam notable for right BKA, bruises on left knee and right lower back. Chest clear to auscultation bilaterally. Labs notable for creatinine of 1.91, glucose of 417, AST of 106, ALT of 112, alk phos of 171, CK of 1733, TSH of 4.7 but free T4 of 0.85, positive COVID test. Chest x-ray did not show any acute disease lumbar and knee x-ray did not show any acute fractures. COVID-19 infection Fall at home. Rhabdomyolysis KEN on CKD. Patient is currently on room air and denies any respiratory symptoms. Hence no COVID-specific therapies. COVID-19 infection may have contributed to weakness, fall Got 2 L bolus in ER. Continue IV fluids Check CPK in the morning. Monitor renal function Insulin sliding scale per protocol Optimize glycemic control. Check labs in the morning. Continue home meds. Other plans as detailed by Ivana Whatley PA-C (3) Fall Encounter type: initial encounter Qualified Code(s): W19.XXXA - Unspecified fall, initial encounter
--- NOTE | 2022-08-24 15:37 | XRay Report ---
XR knee LT 1 or 2V routine CLINICAL HISTORY: knee pain, fall COMPARISON STUDY: None. FINDINGS: No acute fracture or dislocation within the left knee. Trace knee effusion. Mass or calcifi cations are noted. No sylvian soft tissue swelling. Small linear ossific density adjacent to the late ral knee joint is likely chronic. IMPRESSION: No acute fracture or dislocation within the left knee. ACT 112: Negative or not required by law. Electronically signed by: Efren Kenney M.D. 08/24/2022 3:35 PM
--- NOTE | 2022-08-24 15:41 | XRay Report ---
AP RADIOGRAPH OF THE LUMBAR SPINE CLINICAL HISTORY: back pain, fall COMPARISON STUDY: Lumbar spine radiographs July 15, 2020. Lumbar spine CT January 19, 2021. FINDINGS: Several old right rib fractures are incidentally noted. No acute lumbar spine fracture is n oted on AP projection. Evaluation of the lumbar spine is suboptimal given single projection. Disc spa erlin appear preserved. Bowel gas pattern is normal. Vascular calcification is incidentally noted. IMPRESSION: No lumbar spine fracture although sensitivity diminished given lack of lateral projectio n. ACT 112: Negative or not required by law. Electronically signed by: Julien Donovan M.D. 08/24/2022 3:40 PM
--- NOTE | 2022-08-24 16:22 | Electrocardiogram Report ---
Test Reason : Blood Pressure : / mmHG Vent. Rate : 091 BPM Atrial Rate : 091 BPM P-R Int : 158 ms QRS Dur : 070 ms QT Int : 334 ms P-R-T Axes : 053 017 058 degrees QTc Int : 410 ms Poor data quality, interpretation may be adversely affected Normal sinus rhythm Nonspecific ST and T wave abnormality Abnormal ECG When compared with ECG of 29-APR-2021 19:05, No significant change was found Confirmed by Garrett Prince ([id number]) on 08/24/2022 4:21:47 PM Referred By: Confirmed By:Ismael Prince
[2022-08-24] MEDS ORDERED: DEXTROSE 50% 50 ML SYRINGE IV PRN (16:32)
[2022-08-24] MEDS ORDERED: PHARMACY GLYCEMIC MGMT CONSULT PRN (16:32)
[2022-08-24] MEDS ORDERED: GLUCOSE 40% GEL 15 GM TUBE PO PRN (16:32)
[2022-08-24] MEDS ORDERED: ACETAMINOPHEN 325 MG TAB PO PRN (16:32)
[2022-08-24] MEDS ORDERED: ONDANSETRON INJ 2 MG/ML 2 ML VIAL IV PRN (16:32)
[2022-08-24] MEDS ORDERED: GLUCOSE 10 TAB/TUBE PO PRN (16:32)
[2022-08-24] MEDS ORDERED: oxyCODONE HCL IR 5 MG TAB (IMMEDIATE RELEASE) PO PRN (16:32)
[2022-08-24] MEDS ORDERED: POLYETHYLENE (MIRALAX) 17 GM PACK PO PRN (16:32)
[2022-08-24] MEDS ORDERED: GLUCAGON FOR INJ 1 MG VIAL SQ PRN (16:32)
[2022-08-24] MEDS: INSULIN ASPART PER UNIT SC SCH ×2 (17:40→20:27)
[2022-08-24] MEDS ORDERED: INSULIN ASPART PER UNIT SC STA (17:41)
[2022-08-24] MEDS: SODIUM CHLORIDE 0.9% 1000ML 1,000 ML IV SCH (17:50)
[2022-08-24] MEDS: GABAPENTIN 300 MG CAP PO SCH (20:36)
[2022-08-24] MEDS: ENOXAPARIN INJ 30 MG/0.3 ML SYR SQ SCH (20:36)
[2022-08-24] MEDS ORDERED: LANTUS PER UNIT CHARGE SQ SCH (21:00)
[2022-08-24 21:57] LABS: BUN Creatinine Ratio 25.2 (10-20); Calcium 8.7 mg/dl (8.5-10.1); Creatinine Clr Calc Pharmacy 57.2 ml/min; Est GFR (African American) 61.6 ml/min; Est GFR (Non-African American) 53.2 ml/min; Potassium 3.9 mmol/L (3.5-5.1)
[2022-08-24] MEDS ORDERED: ENOXAPARIN INJ 40 MG/0.4 ML SYR SQ SCH (22:00)
[2022-08-25] MEDS: INSULIN ASPART PER UNIT SC SCH ×7 (00:17→23:50)
[2022-08-25] MEDS: SODIUM CHLORIDE 0.9% 1000ML 1,000 ML IV SCH (00:18)
[2022-08-25 08:44] LABS: Basophils # (auto) 0.02 K/uL (0-0.2); Basophils % (auto) 0.3 %; Eosinophils # (auto) 0.09 K/uL (0-0.50); Eosinophils % (auto) 1.3 %; Hematocrit (blood only) 37.3 % (42.0-52.0); Hemoglobin 12.5 g/dl (14.0-18.0); Immature Granulocytes # (auto) 0.04 K/uL (0.01-0.20); Immature Granulocytes % (auto) 0.6 %; Lymphocytes % (auto) 18.4 %; Mean Corpuscular Hemoglobin 29.6 pg (25.0-34.0); Mean Corpuscular Hgb Conc 33.5 g/dL (32.0-36.0); Mean Corpuscular Volume 88.4 fL (80.0-100.0); Mean Platelet Volume 11.6 fL (9.4-12.4); Monocytes # (auto) 0.64 K/uL (0.11-0.59); Monocytes % (auto) 9.1 %; Neutrophils # (auto) 4.98 K/uL (1.40-6.50); Neutrophils % (auto) 70.3 %; Platelet Count 196 K/uL (130-400); RDW Standard Deviation 41.8 fL (36.4-46.3); Red Blood Count 4.22 M/uL (4.70-6.10); White Blood Count 7.07 K/ul (4.8-10.8)
[2022-08-25 09:02] LABS: Albumin Globulin Ratio 1.3 (0.9-2); BUN Creatinine Ratio 21.4 (10-20); Bilirubin,Total 0.6 mg/dl (0.2-1.0); Calcium 8.6 mg/dl (8.5-10.1); Globulin 2.4 gm/dl (2.5-4.0); Magnesium 1.6 mg/dl (1.7-2.4); Potassium 3.7 mmol/L (3.5-5.1); Total Protein 5.4 gm/dl (6.0-8.3)
[2022-08-25] MEDS: GABAPENTIN 300 MG CAP PO SCH ×2 (09:21→21:18)
[2022-08-25] MEDS: amLODIPine BESYLATE 5 MG TAB PO SCH (09:22)
[2022-08-25] MEDS: ASPIRIN 81 MG ECTAB PO SCH (09:22)
[2022-08-25] MEDS: DOCUSATE SODIUM 100 MG CAP PO SCH (09:22)
[2022-08-25] MEDS: ENOXAPARIN INJ 30 MG/0.3 ML SYR SQ SCH ×2 (09:22→21:18)
[2022-08-25] MEDS: CLOPIDOGREL BISULFATE 75 MG TAB PO SCH (09:22)
[2022-08-25 09:28] LABS: Appearance Urine Clear (Clear); Bacteria Urine Automated Negative (Negative); Bilirubin Urine Negative (Negative); Blood Urine Trace (Negative); Color Urine Yellow; Epithelial Cell Urine Auto 0-5 /lpf (0-5); Glucose Urine UA 2+ (Negative); Ketones Urine Negative (Negative); Leukocyte Esterase Urine Negative (Negative); Nitrite Urine Negative (Negative); Protein Urine Trace (Negative); RBC Urine Automated 0-4 /hpf (0-4); Specific Gravity Urine 1.014 (1.000-1.030); Urobilinogen Urine Negative (Negative); WBC Urine Automated 0 /hpf (0-5); pH Urine 5.5 (4.5-7.5)
[2022-08-25 10:19] LABS: Estimated Average Glucose 171 mg/dl; Hemoglobin A1C 7.6 % (4.5-5.6)
[2022-08-25] MEDS ORDERED: LANTUS PER UNIT CHARGE SQ SCH (12:00)
--- NOTE | 2022-08-25 12:30 | Pharmacy Report ---
Pharmacy Glycemic Short Note 2 - Date of Service August 25, 2022 - Glycemic Short BSG Results (Last 24 hours): 08/24/22 08/24/22 08/24/22 12:17 14:57 14:59 Glucose 417 H* POC Glucose 340 H* 366 H* 08/24/22 08/24/22 08/24/22 16:55 16:57 20:19 Glucose POC Glucose 315 H* 310 H* 267 H 08/24/22 08/25/22 08/25/22 20:58 00:09 04:13 Glucose 287 H POC Glucose 147 H 89 08/25/22 08/25/22 08/25/22 07:49 08:10 11:00 Glucose 81 POC Glucose 80 187 H OUTPATIENT ANTIDIABETIC REGIMEN: * Lantus 25 units SQ QAM * Novolog 5 units ACHS * HbA1c = 7.6% on 08/25/22 ASSESSMENT: * 66 y/o M admitted for increased pain post fall around 3 days ago. Patient was dehydrated and in renal failure. He has history of Type 1 diabetes managed at home on basal and bolus insulins. * His usual basal dose of 25 units was taken at home yesterday morning per records. A Lantus dose scale BID was ordered for him based on BSG. He received 10 units at HS yesterday. * BSG trended down overnight and fasting was 80 mg/dl this morning. Lantus BID was discontinued. About 50% of home dose ordered for noon today. Will re- assess basal dose tomorrow. * BSG at lunch trended up to 187 mg/dl. Novolog parameters which was ordered yesterday with stress of 2, is now tightened slightly. PLAN FOR INPATIENT GLYCEMIC CONTROL: * Hold outpatient oral diabetes medications * Basal insulin * Lantus 10 units last night x1. * Lantus 12 units at noon today x1. Reassess tomorrow * Bolus insulin * NovoLog per scale ACHS or Q6hrs while NPO. Added ,04 checks * Goal Range: Low 110 mg/dL - High 140 mg/dL * Correction Factor: 30 mg/dL/unit * Nutritional / Prandial insulin per carb ratio of 1 unit per 10 grams CHO consumed
--- NOTE | 2022-08-25 14:34 | Hospitalist Progress Note ---
Date of Service August 25, 2022 Assessment & Plan (1) Rhabdomyolysis: (2) SARS-CoV-2 positive: (3) Hyperglycemia due to type 1 diabetes mellitus: (4) Acute worsening of stage 3 chronic kidney disease: (5) Weakness: (6) Fall: Plan This is a 66-year-old male who has significant past medical history of type 1 diabetes, diabetic neuropathy, diabetic proliferative retinopathy, HTN, HLD, PAD, CKD stage III, history of right BKA, history of CVA and history of osteomyelitis who presents to ED secondary to fall and weakness, found to have nontraumatic rhabdo. Fall Ambulatory dysfunction in setting of fall and known right BKA with poor ambulatory status at baseline Generalized weakness Nontraumatic Rhabdomyolysis Lactic acidosis - resolved Acute worsening of CKD stage III in setting of dehydration Received 2 L IV fluid in ED CK ordered in ED, found to be elevated to 1733, trended down overnight with IVF IVF stopped this am and continues to hydrate orally. Pending PT/OT recommendations. Hold Losartan in setting of KEN, with creatinine returning to baseline this am. Transaminitis likely 2/2 rhabdo follow LFTS pt denies abd pain SARS COV 2 asymptomatic possibly playing role in weakness does not meet criteria for tx covid isolation will monitor T1DM with hyperglycemia, neuropathy, retinopathy Lantus/novolog per protocol consult glycemic pharmacist Euglycemic this am. hx of R BKA PAD/PVD continue asa, statin, plavix HTN continue amlodipine hold losartan in setting of KEN DVT ppx: SQ Lovenox BID 30mg Dispo: med tele, PT/OT, pt likely to need placement, ED provider stated Brother unable to care for pt FULL CODE [facility] and Anticipated Discharge Date Admission Date: August 25, 2022 Subjective 66-year-old diabetic man status post right BKA presents with nontraumatic rhabdomyolysis He is tolerating p.o. and reports staying hydrated. CK has trended down KEN has resolved with IV fluids overnight. Hyperglycemia has resolved with reinstitution of insulin. He denies any respiratory symptoms other than occasional cough and declines any supportive care such as cough syrup He is oxygenating well on room air. Review of Systems Review of Systems: All systems reviewed and negative except as indicated above. Physical Exam Physical Exam: CONSTITUTIONAL: WNWD, vitals as above, generally well-appearing, NAD EYES: normal conjunctivae, no scleral icterus ENT: external ear and nose normal, MMM NECK: trachea midline RESPIRATORY: clear to auscultation bilaterally, no crackles, rales or wheezes, normal respiratory effort CARDIOVASCULAR: regular rate and rhythm, S1 and 2 heard without murmurs CHEST: inspection of chest was normal GASTROINTESTINAL: soft, nontender, Nd, no guarding MUSCULOSKELETAL: strength 5/5 throughout, head is normocephalic and atraumatic SKIN: warm and dry NEUROLOGIC: CN 2-12 grossly intact, no sensory deficit, normal cognition, normal speech, no tremor PSYCHIATRIC: alert cooperative and oriented to person, place and time. Results & Data Results & Data ([facility]) Vital Signs (Past 12 Hours) Vital Signs Temp Pulse Pulse Resp BP Pulse Ox O2 Del Method 08/25/22 11:16 36.7 C 72 16 138/60 98 Room Air 08/25/22 08:21 36.8 C 69 16 125/76 97 Room Air 08/25/22 07:48 67 08/25/22 04:20 36.7 C 70 16 146/82 H 96 Room Air Laboratory Results Short CBC 08/25/22 Range/Units 07:49 WBC 7.07 (4.8-10.8) K/ul Hgb 12.5 L D (14.0-18.0) g/dl Hct 37.3 L (42.0-52.0) % Plt Count 196 (130-400) K/uL BMP 08/24/22 08/25/22 20:58 07:49 Sodium 141 142 Potassium 3.9 3.7 Chloride 111 H 112 H Carbon Dioxide 25 28 BUN 35 H 24 H Creatinine 1.39 D 1.12 Glucose 287 H 81 Calcium 8.7 8.6 Cardiac Enzymes 08/24/22 08/24/22 08/25/22 Range/Units 14:33 16:50 07:49 Total Creatine Kinase 1733 H 1411 H 820 H (30-223) U/L Liver Function 08/25/22 Range/Units 07:49 Total Bilirubin 0.6 (0.2-1.0) mg/dl AST 75 H (13-39) U/L ALT 83 H (7-52) U/L Alkaline Phosphatase 122 H (34-104) U/L Albumin 3.0 L (3.4-5.0) gm/dl Urine 08/25/22 Range/Units 09:12 Urine Color Yellow Urine Appearance Clear (Clear) Urine pH 5.5 (4.5-7.5) Ur Specific Pool 1.014 (1.000-1.030) Urine Protein Trace H (Negative) Urine Glucose (UA) 2+ H (Negative) Medications Administered Current Inpatient Medications Acetaminophen (Acetaminophen 325 Mg Tab) 650 mg PO Q4H PRN PRN Reason: Pain or Fever Stop: 09/23/22 16:31 Amlodipine Besylate (Amlodipine Besylate 5 Mg Tab) 5 mg PO QAM [facility] Stop: 09/24/22 08:59 Last Admin: 08/25/22 09:22 Dose: 5 mg Aspirin (Aspirin 81 Mg Ectab) 81 mg PO DAILY [facility] Stop: 09/24/22 08:59 Last Admin: 08/25/22 09:22 Dose: 81 mg Clopidogrel Bisulfate (Clopidogrel Bisulfate 75 Mg Tab) 75 mg PO QAM [facility] Stop: 09/24/22 08:59 Last Admin: 08/25/22 09:22 Dose: 75 mg Dextrose (Dextrose 50% 50 Ml Syringe) 25 - 50 ml IV UD PRN; Protocol PRN Reason: Hypoglycemia Protocol Stop: 09/23/22 16:31 Docusate Sodium (Docusate Sodium 100 Mg Cap) 100 mg PO DAILY [facility] Stop: 09/24/22 08:59 Last Admin: 08/25/22 09:22 Dose: 100 mg Enoxaparin Sodium (Enoxaparin Inj 30 Mg/0.3 Ml Syr) 30 mg SQ Q12H [place] Stop: 09/23/22 21:59 Last Admin: 08/25/22 09:22 Dose: 30 mg Gabapentin (Gabapentin 300 Mg Cap) 600 mg PO BID [place] Stop: 09/23/22 20:59 Last Admin: 08/25/22 09:21 Dose: 600 mg Glucagon (Glucagon For Inj 1 Mg Vial) 1 mg SQ UD PRN; Protocol PRN Reason: Hypoglycemia Protocol Stop: 09/23/22 16:31 Glucose (Glucose 10 Tab/Tube) 4 - 8 tab PO UD PRN; Protocol PRN Reason: Hypoglycemia Treatment Stop: 09/23/22 16:31 Glucose (Glucose 40% Gel 15 Gm Tube) 15 - 30 gm PO UD PRN; Protocol PRN Reason: Hypoglycemia Protocol Stop: 09/23/22 16:31 Insulin Aspart (Insulin Aspart Per Unit) 0 units SC ACHS [facility] Stop: 09/23/22 16:31 Last Admin: 08/25/22 12:07 Dose: 5 units Insulin Aspart (Insulin Aspart Per Unit) 0 units SC 0000,[id number] [facility] Stop: 09/24/22 00:00 Last Admin: 08/25/22 04:16 Dose: Not Given Miscellaneous (Carbohydrates For Hypoglycemia ) 15 - 30 gm PO UD PRN PRN Reason: Hypoglycemia Protocol Stop: 09/23/22 16:31 Miscellaneous Information (Pharmacy Glycemic Mgmt Consult) 1 each N/A UD PRN PRN Reason: Consult Stop: 09/23/22 16:31 Ondansetron HCl (Ondansetron Inj 2 Mg/Ml 2 Ml Vial) 4 mg IV Q6H PRN PRN Reason: Nausea Stop: 09/23/22 16:31 Oxycodone HCl (Oxycodone Hcl Ir 5 Mg Tab (Immediate Release)) 5 mg PO Q6H PRN PRN Reason: mod-severe pain 6,7,8,9,10 Stop: 09/07/22 16:31 Polyethylene Glycol (Polyethylene (Miralax) 17 Gm Pack) 17 gm PO DAILY PRN PRN Reason: Constipation Stop: 09/23/22 16:31 (6) Fall Encounter type: initial encounter Qualified Code(s): W19.XXXA - Unspecified fall, initial encounter
[2022-08-26] MEDS: INSULIN ASPART PER UNIT SC SCH ×5 (04:18→19:33)
[2022-08-26 06:20] LABS: Basophils # (auto) 0.02 K/uL (0-0.2); Basophils % (auto) 0.3 %; Eosinophils % (auto) 1.6 %; Hematocrit (blood only) 35.6 % (42.0-52.0); Immature Granulocytes # (auto) 0.03 K/uL (0.01-0.20); Immature Granulocytes % (auto) 0.5 %; Lymphocytes # (auto) 1.52 K/uL (1.2-3.4); Lymphocytes % (auto) 24.6 %; Mean Corpuscular Hemoglobin 29.7 pg (25.0-34.0); Mean Corpuscular Hgb Conc 33.7 g/dL (32.0-36.0); Mean Corpuscular Volume 88.1 fL (80.0-100.0); Mean Platelet Volume 11.5 fL (9.4-12.4); Monocytes # (auto) 0.52 K/uL (0.11-0.59); Monocytes % (auto) 8.4 %; Neutrophils # (auto) 3.99 K/uL (1.40-6.50); Neutrophils % (auto) 64.6 %; Platelet Count 189 K/uL (130-400); RDW Coefficient of Variation 12.7 % (11.5-14.5); RDW Standard Deviation 40.8 fL (36.4-46.3); Red Blood Count 4.04 M/uL (4.70-6.10); White Blood Count 6.18 K/ul (4.8-10.8)
[2022-08-26 07:50] LABS: Bilirubin,Total 0.5 mg/dl (0.2-1.0); Calcium 8.5 mg/dl (8.5-10.1); Magnesium 1.5 mg/dl (1.7-2.4); Potassium 4.1 mmol/L (3.5-5.1)
[2022-08-26 07:56] LABS: Albumin Globulin Ratio 1.3 (0.9-2); BUN Creatinine Ratio 20.5 (10-20); Globulin 2.3 gm/dl (2.5-4.0); Total Protein 5.3 gm/dl (6.0-8.3)
[2022-08-26] MEDS: LANTUS PER UNIT CHARGE SQ SCH (09:04)
[2022-08-26] MEDS: DOCUSATE SODIUM 100 MG CAP PO SCH (09:05)
[2022-08-26] MEDS: amLODIPine BESYLATE 5 MG TAB PO SCH (09:05)
[2022-08-26] MEDS: ASPIRIN 81 MG ECTAB PO SCH (09:05)
[2022-08-26] MEDS: CLOPIDOGREL BISULFATE 75 MG TAB PO SCH (09:05)
[2022-08-26] MEDS: ENOXAPARIN INJ 30 MG/0.3 ML SYR SQ SCH ×2 (09:05→20:09)
[2022-08-26] MEDS: GABAPENTIN 300 MG CAP PO SCH ×2 (09:06→19:36)
[2022-08-26] MEDS ORDERED: MAGNESIUM SULFATE 50% 4 GM in SODIUM CHLORIDE 0.9% 1000ML 1,000 ML IV SCH (09:30)
--- NOTE | 2022-08-26 10:52 | Pharmacy Report ---
Pharmacy Glycemic Short Note 2 - Date of Service August 26, 2022 - Glycemic Short BSG Results (Last 24 hours): 08/25/22 08/25/22 08/25/22 11:00 16:41 20:24 Glucose POC Glucose 187 H 239 H 212 H 08/25/22 08/26/22 08/26/22 23:43 04:11 05:40 Glucose 126 H POC Glucose 157 H 111 H 08/26/22 08:00 Glucose POC Glucose 133 H OUTPATIENT ANTIDIABETIC REGIMEN: * Lantus 25 units SQ QAM * Novolog 5 units ACHS * HbA1c = 7.6% on 08/25/22 ASSESSMENT: 08/26: * Post-prandial BSGs were elevated yesterday. Novolog parameters tightened this morning. * Basal insulin 22 units added this morning which is slightly reduced from home dosing. 08/25: * 66 y/o M admitted for increased pain post fall around 3 days ago. Patient was dehydrated and in renal failure. He has history of Type 1 diabetes managed at home on basal and bolus insulins. * His usual basal dose of 25 units was taken at home yesterday morning per records. A Lantus dose scale BID was ordered for him based on BSG. He received 10 units at HS yesterday. * BSG trended down overnight and fasting was 80 mg/dl this morning. Lantus BID was discontinued. About 50% of home dose ordered for noon today. Will re- assess basal dose tomorrow. * BSG at lunch trended up to 187 mg/dl. Novolog parameters which was ordered yesterday with stress of 2, is now tightened slightly. PLAN FOR INPATIENT GLYCEMIC CONTROL: * Hold outpatient oral diabetes medications * Basal insulin * Lantus 22 units SQ QAM * Bolus insulin * NovoLog per scale ACHS or Q6hrs while NPO. * Goal Range: Low 110 mg/dL - High 140 mg/dL * Correction Factor: 25 mg/dL/unit * Nutritional / Prandial insulin per carb ratio of 1 unit per 7 grams CHO consumed
--- NOTE | 2022-08-26 12:09 | Hospitalist Progress Note ---
Date of Service August 26, 2022 Assessment & Plan (1) Rhabdomyolysis: (2) SARS-CoV-2 positive: (3) Hyperglycemia due to type 1 diabetes mellitus: (4) Acute worsening of stage 3 chronic kidney disease: (5) Weakness: (6) Fall: Plan This is a 66-year-old male who has significant past medical history of type 1 diabetes, diabetic neuropathy, diabetic proliferative retinopathy, HTN, HLD, PAD, CKD stage III, history of right BKA, history of CVA and history of osteomyelitis who presents to ED secondary to fall and weakness, found to have nontraumatic rhabdo. Fall Ambulatory dysfunction in setting of fall and known right BKA with poor ambulatory status at baseline Generalized weakness Nontraumatic Rhabdomyolysis Lactic acidosis - resolved Acute worsening of CKD stage III in setting of dehydration Received 2 L IV fluid in ED CK ordered in ED, found to be elevated to 1733, trended down with IVF IVF stopped this am and continues to hydrate orally. Pending PT/OT recommendations. Losartan held initially with KEN, but will restart in am. Transaminitis likely 2/2 rhabdo follow LFTS pt denies abd pain SARS COV 2 asymptomatic possibly playing role in weakness does not meet criteria for tx covid isolation will monitor T1DM with hyperglycemia, neuropathy, retinopathy Lantus/novolog per protocol consult glycemic pharmacist Euglycemic this am. hx of R BKA PAD/PVD continue asa, statin, plavix HTN continue amlodipine hold losartan in setting of KEN DVT ppx: SQ Lovenox BID 30mg Dispo: med tele, PT/OT, pt likely to need placement, ED provider stated Brother unable to care for pt FULL CODE PCP: Britney Mckeon DO [facility] Hospitalist Admission and Anticipated Discharge Date Admission Date: August 25, 2022 Subjective 66-year-old diabetic man status post right BKA presents with nontraumatic rhabdomyolysis He is tolerating p.o. and reports staying hydrated. Fees fine today Reports cough improved He is ill appearing generally but in NAD Review of Systems Review of Systems: All systems reviewed and negative except as indicated above. Physical Exam Physical Exam: CONSTITUTIONAL: WNWD, vitals as above, generally ill-appearing, NAD EYES: normal conjunctivae, no scleral icterus ENT: external ear and nose normal, MMM, poor dentition NECK: trachea midline RESPIRATORY: clear to auscultation bilaterally, no crackles, rales or wheezes, normal respiratory effort CARDIOVASCULAR: regular rate and rhythm, S1 and 2 heard without murmurs CHEST: inspection of chest was normal GASTROINTESTINAL: soft, nontender, Nd, no guarding MUSCULOSKELETAL: strength 5/5 throughout, head is normocephalic and atraumatic, s/p R BKA SKIN: warm and dry NEUROLOGIC: CN 2-12 grossly intact, no sensory deficit, normal cognition, normal speech, no tremor PSYCHIATRIC: alert cooperative and oriented to person, place and time. Results & Data Results & Data ([facility]) Vital Signs (Past 12 Hours) Vital Signs Temp Pulse Pulse Resp BP Pulse Ox O2 Del Method 08/26/22 08:14 36.8 C 87 20 132/65 96 Room Air 08/26/22 07:20 66 08/26/22 03:15 36.5 C 65 18 129/75 96 Room Air Laboratory Results Short CBC 08/26/22 Range/Units 05:40 WBC 6.18 (4.8-10.8) K/ul Hgb 12.0 L (14.0-18.0) g/dl Hct 35.6 L (42.0-52.0) % Plt Count 189 (130-400) K/uL BMP 08/26/22 05:40 Sodium 140 Potassium 4.1 Chloride 109 H Carbon Dioxide 26 BUN 23 Creatinine 1.12 Glucose 126 H Calcium 8.5 Cardiac Enzymes 08/25/22 Range/Units 16:42 Total Creatine Kinase 678 H (30-223) U/L Liver Function 08/26/22 Range/Units 05:40 Total Bilirubin 0.5 (0.2-1.0) mg/dl AST 60 H (13-39) U/L ALT 81 H (7-52) U/L Alkaline Phosphatase 120 H (34-104) U/L Albumin 3.0 L (3.4-5.0) gm/dl Medications Administered Current Inpatient Medications Acetaminophen (Acetaminophen 325 Mg Tab) 650 mg PO Q4H PRN PRN Reason: Pain or Fever Stop: 09/23/22 16:31 Amlodipine Besylate (Amlodipine Besylate 5 Mg Tab) 5 mg PO QAM [facility] Stop: 09/24/22 08:59 Last Admin: 08/26/22 09:05 Dose: 5 mg Aspirin (Aspirin 81 Mg Ectab) 81 mg PO DAILY [place] Stop: 09/24/22 08:59 Last Admin: 08/26/22 09:05 Dose: 81 mg Clopidogrel Bisulfate (Clopidogrel Bisulfate 75 Mg Tab) 75 mg PO QAM [place] Stop: 09/24/22 08:59 Last Admin: 08/26/22 09:05 Dose: 75 mg Dextrose (Dextrose 50% 50 Ml Syringe) 25 - 50 ml IV UD PRN; Protocol PRN Reason: Hypoglycemia Protocol Stop: 09/23/22 16:31 Docusate Sodium (Docusate Sodium 100 Mg Cap) 100 mg PO DAILY [place] Stop: 09/24/22 08:59 Last Admin: 08/26/22 09:05 Dose: 100 mg Enoxaparin Sodium (Enoxaparin Inj 30 Mg/0.3 Ml Syr) 30 mg SQ Q12H [place] Stop: 09/23/22 21:59 Last Admin: 08/26/22 09:05 Dose: 30 mg Gabapentin (Gabapentin 300 Mg Cap) 600 mg PO BID [place] Stop: 09/23/22 20:59 Last Admin: 08/26/22 09:06 Dose: 600 mg Glucagon (Glucagon For Inj 1 Mg Vial) 1 mg SQ UD PRN; Protocol PRN Reason: Hypoglycemia Protocol Stop: 09/23/22 16:31 Glucose (Glucose 10 Tab/Tube) 4 - 8 tab PO UD PRN; Protocol PRN Reason: Hypoglycemia Treatment Stop: 09/23/22 16:31 Glucose (Glucose 40% Gel 15 Gm Tube) 15 - 30 gm PO UD PRN; Protocol PRN Reason: Hypoglycemia Protocol Stop: 09/23/22 16:31 Magnesium Sulfate 4 gm/ Sodium (Chloride) 1,008 mls @ 125 mls/hr IV .Q8H4M [facility] Stop: 08/26/22 17:33 Last Admin: 08/26/22 11:48 Dose: 125 mls/hr Insulin Aspart (Insulin Aspart Per Unit) 0 units SC ACHS [facility] Stop: 09/23/22 16:31 Last Admin: 08/26/22 11:50 Dose: 7 units Insulin Glargine (Lantus Per Unit Charge) 22 units SQ QAM [facility] Stop: 09/25/22 08:59 Last Admin: 08/26/22 09:04 Dose: 22 units Miscellaneous (Carbohydrates For Hypoglycemia ) 15 - 30 gm PO UD PRN PRN Reason: Hypoglycemia Protocol Stop: 09/23/22 16:31 Miscellaneous Information (Pharmacy Glycemic Mgmt Consult) 1 each N/A UD PRN PRN Reason: Consult Stop: 09/23/22 16:31 Ondansetron HCl (Ondansetron Inj 2 Mg/Ml 2 Ml Vial) 4 mg IV Q6H PRN PRN Reason: Nausea Stop: 09/23/22 16:31 Oxycodone HCl (Oxycodone Hcl Ir 5 Mg Tab (Immediate Release)) 5 mg PO Q6H PRN PRN Reason: mod-severe pain 6,7,8,9,10 Stop: 09/07/22 16:31 Last Admin: 08/25/22 21:21 Dose: 5 mg Polyethylene Glycol (Polyethylene (Miralax) 17 Gm Pack) 17 gm PO DAILY PRN PRN Reason: Constipation Stop: 09/23/22 16:31 (6) Fall Encounter type: initial encounter Qualified Code(s): W19.XXXA - Unspecified fall, initial encounter
[2022-08-27 07:49] LABS: BUN Creatinine Ratio 19.8 (10-20); Calcium 8.7 mg/dl (8.5-10.1); Creatinine Clr Calc Pharmacy 65.7 ml/min; Est GFR (African American) 72.9 ml/min; Est GFR (Non-African American) 62.9 ml/min; Phosphorus 2.7 mg/dl (2.5-4.9); Potassium 4.4 mmol/L (3.5-5.1)
[2022-08-27] MEDS: INSULIN ASPART PER UNIT SC SCH ×4 (07:59→20:27)
[2022-08-27] MEDS: LANTUS PER UNIT CHARGE SQ SCH (08:00)
[2022-08-27] MEDS: DOCUSATE SODIUM 100 MG CAP PO SCH (08:09)
[2022-08-27] MEDS: CLOPIDOGREL BISULFATE 75 MG TAB PO SCH (08:09)
[2022-08-27] MEDS: GABAPENTIN 300 MG CAP PO SCH ×2 (08:10→21:40)
[2022-08-27] MEDS: ASPIRIN 81 MG ECTAB PO SCH (08:10)
[2022-08-27] MEDS: amLODIPine BESYLATE 5 MG TAB PO SCH (08:10)
[2022-08-27] MEDS: LOSARTAN POTASSIUM 25 MG TAB PO SCH (09:39)
[2022-08-27] MEDS: ENOXAPARIN INJ 30 MG/0.3 ML SYR SQ SCH ×2 (09:39→21:40)
--- NOTE | 2022-08-27 15:11 | Hospitalist Progress Note ---
Date of Service August 27, 2022 Assessment & Plan (1) Rhabdomyolysis: (2) SARS-CoV-2 positive: (3) Hyperglycemia due to type 1 diabetes mellitus: (4) Acute worsening of stage 3 chronic kidney disease: (5) Weakness: (6) Fall: Plan This is a 66-year-old male who has significant past medical history of type 1 diabetes, diabetic neuropathy, diabetic proliferative retinopathy, HTN, HLD, PAD, CKD stage III, history of right BKA, history of CVA and history of osteomyelitis who presents to ED secondary to fall and weakness, found to have nontraumatic rhabdo. Fall Ambulatory dysfunction in setting of fall and known right BKA with poor ambulatory status at baseline Generalized weakness Nontraumatic Rhabdomyolysis Lactic acidosis - resolved Acute worsening of CKD stage III in setting of dehydration Received 2 L IV fluid in ED CK ordered in ED, found to be elevated to 1733, trended down with IVF IVF stopped this am and continues to hydrate orally. Pending PT/OT recommendations. Losartan held initially with KEN, now restarted and BP appears at goal. Transaminitis likely 2/2 rhabdo follow LFTS pt denies abd pain SARS COV 2 asymptomatic possibly playing role in weakness does not meet criteria for tx covid isolation will monitor T1DM with hyperglycemia, neuropathy, retinopathy Lantus/novolog per protocol consult glycemic pharmacist Euglycemic this am. hx of R BKA PAD/PVD continue asa, statin, plavix HTN continue amlodipine hold losartan in setting of KEN DVT ppx: SQ Lovenox BID 30mg Dispo: awaiting placement into SNF. FULL CODE PCP: Britney Mckeon DO [facility] Hospitalist Admission and Anticipated Discharge Date Admission Date: August 25, 2022 Subjective 66-year-old diabetic man status post right BKA presents with nontraumatic rha bdomyolysis He is tolerating p.o. and reports staying hydrated. Fees fine today Reports cough improved He is ill appearing generally but in NAD Review of Systems Review of Systems: All systems reviewed and negative except as indicated above. Physical Exam Physical Exam: CONSTITUTIONAL: WNWD, vitals as above, generally ill-appearing, NAD EYES: normal conjunctivae, no scleral icterus ENT: external ear and nose normal, MMM, poor dentition NECK: trachea midline RESPIRATORY: clear to auscultation bilaterally, no crackles, rales or wheezes, normal respiratory effort CARDIOVASCULAR: regular rate and rhythm, S1 and 2 heard without murmurs CHEST: inspection of chest was normal GASTROINTESTINAL: soft, nontender, Nd, no guarding MUSCULOSKELETAL: strength 5/5 throughout, head is normocephalic and atraumatic, s/p R BKA SKIN: warm and dry NEUROLOGIC: CN 2-12 grossly intact, no sensory deficit, normal cognition, normal speech, no tremor PSYCHIATRIC: alert cooperative and oriented to person, place and time. Results & Data Results & Data ([facility]) Vital Signs (Past 12 Hours) Vital Signs Temp Pulse Pulse Resp BP Pulse Ox O2 Del Method 08/27/22 07:43 36.9 C 76 14 144/72 H 94 Room Air 08/27/22 06:01 67 08/27/22 03:33 36.5 C 70 18 141/82 H 94 Room Air Laboratory Results [facility] 08/27/22 06:24 Sodium 137 Potassium 4.4 Chloride 106 Carbon Dioxide 27 BUN 24 H Creatinine 1.21 Glucose 141 H Calcium 8.7 Cardiac Enzymes 08/27/22 Range/Units 06:24 Total Creatine Kinase 310 H (30-223) U/L Medications Administered Current Inpatient Medications Acetaminophen (Acetaminophen 325 Mg Tab) 650 mg PO Q4H PRN PRN Reason: Pain or Fever Stop: 09/23/22 16:31 Amlodipine Besylate (Amlodipine Besylate 5 Mg Tab) 5 mg PO QAM [facility] Stop: 09/24/22 08:59 Last Admin: 08/27/22 08:10 Dose: 5 mg Aspirin (Aspirin 81 Mg Ectab) 81 mg PO DAILY [place] Stop: 09/24/22 08:59 Last Admin: 08/27/22 08:10 Dose: 81 mg Clopidogrel Bisulfate (Clopidogrel Bisulfate 75 Mg Tab) 75 mg PO QAM [facility] Stop: 09/24/22 08:59 Last Admin: 08/27/22 08:09 Dose: 75 mg Dextrose (Dextrose 50% 50 Ml Syringe) 25 - 50 ml IV UD PRN; Protocol PRN Reason: Hypoglycemia Protocol Stop: 09/23/22 16:31 Docusate Sodium (Docusate Sodium 100 Mg Cap) 100 mg PO DAILY [facility] Stop: 09/24/22 08:59 Last Admin: 08/27/22 08:09 Dose: 100 mg Enoxaparin Sodium (Enoxaparin Inj 30 Mg/0.3 Ml Syr) 30 mg SQ Q12H [facility] Stop: 09/23/22 21:59 Last Admin: 08/27/22 09:39 Dose: 30 mg Gabapentin (Gabapentin 300 Mg Cap) 600 mg PO BID [place] Stop: 09/23/22 20:59 Last Admin: 08/27/22 08:10 Dose: 600 mg Glucagon (Glucagon For Inj 1 Mg Vial) 1 mg SQ UD PRN; Protocol PRN Reason: Hypoglycemia Protocol Stop: 09/23/22 16:31 Glucose (Glucose 10 Tab/Tube) 4 - 8 tab PO UD PRN; Protocol PRN Reason: Hypoglycemia Treatment Stop: 09/23/22 16:31 Glucose (Glucose 40% Gel 15 Gm Tube) 15 - 30 gm PO UD PRN; Protocol PRN Reason: Hypoglycemia Protocol Stop: 09/23/22 16:31 Insulin Aspart (Insulin Aspart Per Unit) 0 units SC ACHS [facility] Stop: 09/23/22 16:31 Last Admin: 08/27/22 12:27 Dose: 5 units Insulin Glargine (Lantus Per Unit Charge) 22 units SQ QAM [facility] Stop: 09/25/22 08:59 Last Admin: 08/27/22 08:00 Dose: 22 units Losartan Potassium (Losartan Potassium 25 Mg Tab) 25 mg PO QAM [facility] Stop: 09/26/22 08:59 Last Admin: 08/27/22 09:39 Dose: 25 mg Miscellaneous (Carbohydrates For Hypoglycemia ) 15 - 30 gm PO UD PRN PRN Reason: Hypoglycemia Protocol Stop: 09/23/22 16:31 Miscellaneous Information (Pharmacy Glycemic Mgmt Consult) 1 each N/A UD PRN PRN Reason: Consult Stop: 09/23/22 16:31 Ondansetron HCl (Ondansetron Inj 2 Mg/Ml 2 Ml Vial) 4 mg IV Q6H PRN PRN Reason: Nausea Stop: 09/23/22 16:31 Oxycodone HCl (Oxycodone Hcl Ir 5 Mg Tab (Immediate Release)) 5 mg PO Q6H PRN PRN Reason: mod-severe pain 6,7,8,9,10 Stop: 09/07/22 16:31 Last Admin: 08/25/22 21:21 Dose: 5 mg Polyethylene Glycol (Polyethylene (Miralax) 17 Gm Pack) 17 gm PO DAILY PRN PRN Reason: Constipation Stop: 09/23/22 16:31 (6) Fall Encounter type: initial encounter Qualified Code(s): W19.XXXA - Unspecified fall, initial encounter
[2022-08-27] MEDS: CARBOHYDRATES FOR HYPOGLYCEMIA PO PRN (20:24)
[2022-08-28] MEDS: INSULIN ASPART PER UNIT SC SCH ×4 (08:00→20:39)
[2022-08-28] MEDS: LANTUS PER UNIT CHARGE SQ SCH (08:01)
[2022-08-28] MEDS: ASPIRIN 81 MG ECTAB PO SCH (08:12)
[2022-08-28] MEDS: CLOPIDOGREL BISULFATE 75 MG TAB PO SCH (08:12)
[2022-08-28] MEDS: GABAPENTIN 300 MG CAP PO SCH ×2 (08:12→20:39)
[2022-08-28] MEDS: ENOXAPARIN INJ 30 MG/0.3 ML SYR SQ SCH ×2 (08:13→21:22)
[2022-08-28] MEDS: DOCUSATE SODIUM 100 MG CAP PO SCH (08:13)
[2022-08-28] MEDS: LOSARTAN POTASSIUM 25 MG TAB PO SCH (08:13)
[2022-08-28] MEDS: amLODIPine BESYLATE 5 MG TAB PO SCH (08:13)
--- NOTE | 2022-08-28 13:47 | Pharmacy Report ---
Pharmacy Glycemic Short Note 2 - Date of Service August 28, 2022 - Glycemic Short BSG Results (Last 24 hours): 08/27/22 08/27/22 08/27/22 16:41 20:20 20:20 POC Glucose 137 H 65 L* 63 L* 08/27/22 08/27/22 08/28/22 20:37 20:56 07:20 POC Glucose 67 L* 93 186 H 08/28/22 11:19 POC Glucose 130 H OUTPATIENT ANTIDIABETIC REGIMEN: * Lantus 25 units SQ QAM * Novolog 5 units ACHS * HbA1c = 7.6% on 08/25/22 ASSESSMENT: 08/28: * Patient's BSG ranged 65-178 mg/dL yesterday. * Loosened carb ratio for today given trend down last night. * Increased lantus slightly to 23 units, further increase if Fasting elevated tomorrow 08/26: * Post-prandial BSGs were elevated yesterday. Novolog parameters tightened this morning. * Basal insulin 22 units added this morning which is slightly reduced from home dosing. 08/25: * 66 y/o M admitted for increased pain post fall around 3 days ago. Patient was dehydrated and in renal failure. He has history of Type 1 diabetes managed at home on basal and bolus insulins. * His usual basal dose of 25 units was taken at home yesterday morning per records. A Lantus dose scale BID was ordered for him based on BSG. He received 10 units at HS yesterday. * BSG trended down overnight and fasting was 80 mg/dl this morning. Lantus BID was discontinued. About 50% of home dose ordered for noon today. Will re- assess basal dose tomorrow. * BSG at lunch trended up to 187 mg/dl. Novolog parameters which was ordered yesterday with stress of 2, is now tightened slightly. PLAN FOR INPATIENT GLYCEMIC CONTROL: * Hold outpatient oral diabetes medications * Basal insulin * Lantus 23 units SQ QAM * Bolus insulin * NovoLog per scale ACHS or Q6hrs while NPO. * Goal Range: Low 110 mg/dL - High 140 mg/dL * Correction Factor: 25 mg/dL/unit * Nutritional / Prandial insulin per carb ratio of 1 unit per 9 grams CHO consumed
--- NOTE | 2022-08-28 14:40 | Hospitalist Progress Note ---
Date of Service August 28, 2022 Assessment & Plan (1) Rhabdomyolysis: (2) SARS-CoV-2 positive: (3) Hyperglycemia due to type 1 diabetes mellitus: (4) Acute worsening of stage 3 chronic kidney disease: (5) Weakness: (6) Fall: Plan This is a 66-year-old male who has significant past medical history of type 1 diabetes, diabetic neuropathy, diabetic proliferative retinopathy, HTN, HLD, PAD, CKD stage III, history of right BKA, history of CVA and history of osteomyelitis who presents to ED secondary to fall and weakness, found to have nontraumatic rhabdo. Fall Ambulatory dysfunction in setting of fall and known right BKA with poor ambulatory status at baseline Generalized weakness Nontraumatic Rhabdomyolysis Lactic acidosis - resolved Acute worsening of CKD stage III in setting of dehydration Received 2 L IV fluid in ED CK ordered in ED, found to be elevated to 1733, trended down with IVF IVF stopped this am and continues to hydrate orally. Pending PT/OT recommendations. Losartan held initially with KEN, now restarted and BP appears at goal. Transaminitis likely 2/2 rhabdo follow LFTS pt denies abd pain SARS COV 2 asymptomatic possibly playing role in weakness does not meet criteria for tx covid isolation will monitor T1DM with hyperglycemia, neuropathy, retinopathy Lantus/novolog per protocol consult glycemic pharmacist Euglycemic this am. hx of R BKA PAD/PVD continue asa, statin, plavix HTN continue amlodipine hold losartan in setting of KEN DVT ppx: SQ Lovenox BID 30mg Dispo: awaiting placement into SNF. FULL CODE PCP: Britney I spoke with his brother, Morris, by phone today and updated him on the progress. I coordinated care [facility] Case Managment, also. Kennedi Mckeon DO [facility] Hospitalist Admission and Anticipated Discharge Date Admission Date: August 25, 2022 Subjective 66-year-old diabetic man status post right BKA presents with nontraumatic rhabdomyolysis He is tolerating p.o. and reports staying hydrated. Fees fine today Reports cough improved He is ill appearing generally but in NAD Review of Systems Review of Systems: All systems reviewed and negative except as indicated above. Physical Exam Physical Exam: CONSTITUTIONAL: WNWD, vitals as above, generally ill-appearing, NAD EYES: normal conjunctivae, no scleral icterus ENT: external ear and nose normal, MMM, poor dentition NECK: trachea midline RESPIRATORY: clear to auscultation bilaterally, no crackles, rales or wheezes, normal respiratory effort CARDIOVASCULAR: regular rate and rhythm, S1 and 2 heard without murmurs CHEST: inspection of chest was normal GASTROINTESTINAL: soft, nontender, Nd, no guarding MUSCULOSKELETAL: strength 5/5 throughout, head is normocephalic and atraumatic, s/p R BKA SKIN: warm and dry NEUROLOGIC: CN 2-12 grossly intact, no sensory deficit, normal cognition, normal speech, no tremor PSYCHIATRIC: alert cooperative and oriented to person, place and time. Results & Data Results & Data ([facility]) Vital Signs (Past 12 Hours) Vital Signs Temp Pulse Resp BP Pulse Ox O2 Del Method 08/28/22 07:38 36.7 C 65 20 141/84 H 95 Room Air Medications Administered Current Inpatient Medications Acetaminophen (Acetaminophen 325 Mg Tab) 650 mg PO Q4H PRN PRN Reason: Pain or Fever Stop: 09/23/22 16:31 Amlodipine Besylate (Amlodipine Besylate 5 Mg Tab) 5 mg PO QAM [place] Stop: 09/24/22 08:59 Last Admin: 08/28/22 08:13 Dose: 5 mg Aspirin (Aspirin 81 Mg Ectab) 81 mg PO DAILY [place] Stop: 09/24/22 08:59 Last Admin: 08/28/22 08:12 Dose: 81 mg Clopidogrel Bisulfate (Clopidogrel Bisulfate 75 Mg Tab) 75 mg PO QAM [place] Stop: 09/24/22 08:59 Last Admin: 08/28/22 08:12 Dose: 75 mg Dextrose (Dextrose 50% 50 Ml Syringe) 25 - 50 ml IV UD PRN; Protocol PRN Reason: Hypoglycemia Protocol Stop: 09/23/22 16:31 Docusate Sodium (Docusate Sodium 100 Mg Cap) 100 mg PO DAILY [place] Stop: 09/24/22 08:59 Last Admin: 08/28/22 08:13 Dose: 100 mg Enoxaparin Sodium (Enoxaparin Inj 30 Mg/0.3 Ml Syr) 30 mg SQ Q12H [place] Stop: 09/23/22 21:59 Last Admin: 08/28/22 08:13 Dose: 30 mg Gabapentin (Gabapentin 300 Mg Cap) 600 mg PO BID [place] Stop: 09/23/22 20:59 Last Admin: 08/28/22 08:12 Dose: 600 mg Glucagon (Glucagon For Inj 1 Mg Vial) 1 mg SQ UD PRN; Protocol PRN Reason: Hypoglycemia Protocol Stop: 09/23/22 16:31 Glucose (Glucose 10 Tab/Tube) 4 - 8 tab PO UD PRN; Protocol PRN Reason: Hypoglycemia Treatment Stop: 09/23/22 16:31 Glucose (Glucose 40% Gel 15 Gm Tube) 15 - 30 gm PO UD PRN; Protocol PRN Reason: Hypoglycemia Protocol Stop: 09/23/22 16:31 Last Admin: 08/27/22 20:45 Dose: 15 gm Insulin Aspart (Insulin Aspart Per Unit) 0 units SC ACHS [facility] Stop: 09/23/22 16:31 Last Admin: 08/28/22 11:42 Dose: Not Given Insulin Glargine (Lantus Per Unit Charge) 23 units SQ QAM [facility] Stop: 09/25/22 08:59 Last Admin: 08/28/22 08:01 Dose: 23 units Losartan Potassium (Losartan Potassium 25 Mg Tab) 25 mg PO QAM [facility] Stop: 09/26/22 08:59 Last Admin: 08/28/22 08:13 Dose: 25 mg Miscellaneous (Carbohydrates For Hypoglycemia ) 15 - 30 gm PO UD PRN PRN Reason: Hypoglycemia Protocol Stop: 09/23/22 16:31 Last Admin: 08/27/22 20:24 Dose: 15 gm Miscellaneous Information (Pharmacy Glycemic Mgmt Consult) 1 each N/A UD PRN PRN Reason: Consult Stop: 09/23/22 16:31 Ondansetron HCl (Ondansetron Inj 2 Mg/Ml 2 Ml Vial) 4 mg IV Q6H PRN PRN Reason: Nausea Stop: 09/23/22 16:31 Oxycodone HCl (Oxycodone Hcl Ir 5 Mg Tab (Immediate Release)) 5 mg PO Q6H PRN PRN Reason: mod-severe pain 6,7,8,9,10 Stop: 09/07/22 16:31 Last Admin: 08/25/22 21:21 Dose: 5 mg Polyethylene Glycol (Polyethylene (Miralax) 17 Gm Pack) 17 gm PO DAILY PRN PRN Reason: Constipation Stop: 09/23/22 16:31 Last Admin: 08/27/22 22:13 Dose: 17 gm (6) Fall Encounter type: initial encounter Qualified Code(s): W19.XXXA - Unspecified fall, initial encounter
[2022-08-29] MEDS: INSULIN ASPART PER UNIT SC SCH ×4 (08:06→20:15)
[2022-08-29] MEDS: LANTUS PER UNIT CHARGE SQ SCH (08:07)
[2022-08-29] MEDS: amLODIPine BESYLATE 5 MG TAB PO SCH (08:15)
[2022-08-29] MEDS: CLOPIDOGREL BISULFATE 75 MG TAB PO SCH (08:15)
[2022-08-29] MEDS: ASPIRIN 81 MG ECTAB PO SCH (08:15)
[2022-08-29] MEDS: LOSARTAN POTASSIUM 25 MG TAB PO SCH (08:15)
[2022-08-29] MEDS: GABAPENTIN 300 MG CAP PO SCH ×2 (08:15→20:13)
[2022-08-29] MEDS: DOCUSATE SODIUM 100 MG CAP PO SCH (08:15)
[2022-08-29] MEDS: ENOXAPARIN INJ 30 MG/0.3 ML SYR SQ SCH ×2 (08:17→21:09)
--- NOTE | 2022-08-29 14:11 | Hospitalist Progress Note ---
Date of Service August 29, 2022 Assessment & Plan (1) Rhabdomyolysis: (2) SARS-CoV-2 positive: (3) Hyperglycemia due to type 1 diabetes mellitus: (4) Acute worsening of stage 3 chronic kidney disease: (5) Weakness: (6) Fall: Plan This is a 66-year-old male who has significant past medical history of type 1 diabetes, diabetic neuropathy, diabetic proliferative retinopathy, HTN, HLD, PAD, CKD stage III, history of right BKA, history of CVA and history of osteomyelitis who presents to ED secondary to fall and weakness, found to have nontraumatic rhabdo. Fall Ambulatory dysfunction in setting of fall and known right BKA with poor ambulatory status at baseline Generalized weakness Nontraumatic Rhabdomyolysis Lactic acidosis - resolved Acute worsening of CKD stage III in setting of dehydration Received 2 L IV fluid in ED CK ordered in ED, found to be elevated to 1733, trended down with IVF IVF stopped this am and continues to hydrate orally. Pending PT/OT recommendations. Losartan held initially with KEN, now restarted and BP appears at goal. Transaminitis likely 2/2 rhabdo follow LFTS pt denies abd pain SARS COV 2 asymptomatic possibly playing role in weakness does not meet criteria for tx covid isolation will monitor T1DM with hyperglycemia, neuropathy, retinopathy Lantus/novolog per protocol consult glycemic pharmacist Euglycemic this am. hx of R BKA PAD/PVD continue asa, statin, plavix HTN continue amlodipine hold losartan in setting of KEN DVT ppx: SQ Lovenox BID 30mg Dispo: awaiting placement into SNF. FULL CODE PCP: Britney Mckeon DO [facility] Hospitalist Admission and Anticipated Discharge Date Admission Date: August 25, 2022 Subjective 66-year-old diabetic man status post right BKA presents with nontraumatic rhabdomyolysis He is tolerating p.o. and reports staying hydrated. Feels well today and no issues. Review of Systems Review of Systems: All systems reviewed and negative except as indicated above. Physical Exam Physical Exam: CONSTITUTIONAL: WNWD, vitals as above, generally ill-appearing, NAD EYES: normal conjunctivae, no scleral icterus ENT: external ear and nose normal, MMM, poor dentition NECK: trachea midline RESPIRATORY: clear to auscultation bilaterally, no crackles, rales or wheezes, normal respiratory effort CARDIOVASCULAR: regular rate and rhythm, S1 and 2 heard without murmurs CHEST: inspection of chest was normal GASTROINTESTINAL: soft, nontender, Nd, no guarding MUSCULOSKELETAL: strength 5/5 throughout, head is normocephalic and atraumatic, s/p R BKA SKIN: warm and dry NEUROLOGIC: CN 2-12 grossly intact, no sensory deficit, normal cognition, normal speech, no tremor PSYCHIATRIC: alert cooperative and oriented to person, place and time. Results & Data Results & Data ([facility]) Vital Signs (Past 12 Hours) Vital Signs Temp Pulse Resp BP Pulse Ox O2 Del Method 08/29/22 11:30 36.8 C 66 16 120/80 93 Room Air 08/29/22 07:15 36.5 C 67 16 143/89 H 94 Room Air Medications Administered Current Inpatient Medications Acetaminophen (Acetaminophen 325 Mg Tab) 650 mg PO Q4H PRN PRN Reason: Pain or Fever Stop: 09/23/22 16:31 Amlodipine Besylate (Amlodipine Besylate 5 Mg Tab) 5 mg PO QAM [place] Stop: 09/24/22 08:59 Last Admin: 08/29/22 08:15 Dose: 5 mg Aspirin (Aspirin 81 Mg Ectab) 81 mg PO DAILY [place] Stop: 09/24/22 08:59 Last Admin: 08/29/22 08:15 Dose: 81 mg Clopidogrel Bisulfate (Clopidogrel Bisulfate 75 Mg Tab) 75 mg PO QAM [place] Stop: 09/24/22 08:59 Last Admin: 08/29/22 08:15 Dose: 75 mg Dextrose (Dextrose 50% 50 Ml Syringe) 25 - 50 ml IV UD PRN; Protocol PRN Reason: Hypoglycemia Protocol Stop: 09/23/22 16:31 Docusate Sodium (Docusate Sodium 100 Mg Cap) 100 mg PO DAILY [place] Stop: 09/24/22 08:59 Last Admin: 08/29/22 08:15 Dose: 100 mg Enoxaparin Sodium (Enoxaparin Inj 30 Mg/0.3 Ml Syr) 30 mg SQ Q12H [place] Stop: 09/23/22 21:59 Last Admin: 08/29/22 08:17 Dose: 30 mg Gabapentin (Gabapentin 300 Mg Cap) 600 mg PO BID [place] Stop: 09/23/22 20:59 Last Admin: 08/29/22 08:15 Dose: 600 mg Glucagon (Glucagon For Inj 1 Mg Vial) 1 mg SQ UD PRN; Protocol PRN Reason: Hypoglycemia Protocol Stop: 09/23/22 16:31 Glucose (Glucose 10 Tab/Tube) 4 - 8 tab PO UD PRN; Protocol PRN Reason: Hypoglycemia Treatment Stop: 09/23/22 16:31 Glucose (Glucose 40% Gel 15 Gm Tube) 15 - 30 gm PO UD PRN; Protocol PRN Reason: Hypoglycemia Protocol Stop: 09/23/22 16:31 Last Admin: 08/27/22 20:45 Dose: 15 gm Insulin Aspart (Insulin Aspart Per Unit) 0 units SC ACHS [facility] Stop: 09/23/22 16:31 Last Admin: 08/29/22 12:02 Dose: 2 units Insulin Glargine (Lantus Per Unit Charge) [facility] [place] Stop: 09/25/22 08:59 Last Admin: 08/29/22 08:07 Dose: 23 units Losartan Potassium (Losartan Potassium 25 Mg Tab) 25 mg PO QAM [facility] Stop: 09/26/22 08:59 Last Admin: 08/29/22 08:15 Dose: 25 mg Miscellaneous (Carbohydrates For Hypoglycemia ) 15 - 30 gm PO UD PRN PRN Reason: Hypoglycemia Protocol Stop: 09/23/22 16:31 Last Admin: 08/27/22 20:24 Dose: 15 gm Miscellaneous Information (Pharmacy Glycemic Mgmt Consult) 1 each N/A UD PRN PRN Reason: Consult Stop: 09/23/22 16:31 Ondansetron HCl (Ondansetron Inj 2 Mg/Ml 2 Ml Vial) 4 mg IV Q6H PRN PRN Reason: Nausea Stop: 09/23/22 16:31 Oxycodone HCl (Oxycodone Hcl Ir 5 Mg Tab (Immediate Release)) 5 mg PO Q6H PRN PRN Reason: mod-severe pain 6,7,8,9,10 Stop: 09/07/22 16:31 Last Admin: 08/25/22 21:21 Dose: 5 mg Polyethylene Glycol (Polyethylene (Miralax) 17 Gm Pack) 17 gm PO DAILY PRN PRN Reason: Constipation Stop: 09/23/22 16:31 Last Admin: 08/27/22 22:13 Dose: 17 gm (6) Fall Encounter type: initial encounter Qualified Code(s): W19.XXXA - Unspecified fall, initial encounter
[2022-08-29] MEDS: CARBOHYDRATES FOR HYPOGLYCEMIA PO PRN (20:13)
[2022-08-30] MEDS: DOCUSATE SODIUM 100 MG CAP PO SCH (08:51)
[2022-08-30] MEDS: ASPIRIN 81 MG ECTAB PO SCH (08:52)
[2022-08-30] MEDS: GABAPENTIN 300 MG CAP PO SCH ×2 (08:52→20:40)
[2022-08-30] MEDS: LOSARTAN POTASSIUM 25 MG TAB PO SCH (08:52)
[2022-08-30] MEDS: CLOPIDOGREL BISULFATE 75 MG TAB PO SCH (08:52)
[2022-08-30] MEDS: amLODIPine BESYLATE 5 MG TAB PO SCH (08:52)
[2022-08-30] MEDS ORDERED: LANTUS PER UNIT CHARGE SQ SCH (09:00)
[2022-08-30] MEDS: INSULIN ASPART PER UNIT SC SCH ×4 (09:05→20:41)
[2022-08-30] MEDS: ENOXAPARIN INJ 30 MG/0.3 ML SYR SQ SCH ×2 (09:59→20:39)
--- NOTE | 2022-08-30 14:44 | Pharmacy Report ---
Pharmacy Glycemic Short Note 2 - Date of Service August 30, 2022 - Glycemic Short BSG Results (Last 24 hours): 08/29/22 08/29/22 08/29/22 16:07 20:11 20:30 POC Glucose 77 65 L* 83 08/29/22 08/30/22 08/30/22 23:25 08:30 12:14 POC Glucose 127 H 84 137 H OUTPATIENT ANTIDIABETIC REGIMEN: * Lantus 25 units SQ QAM * Novolog 5 units ACHS * HbA1c = 7.6% on 08/25/22 ASSESSMENT: 08/30/22 * BSGs yesterday were 449-599-19-65/83 mg/dL. Patient received 34 units of insulin (23 units of basal and 11 units of bolus). * Fasting today is 84 mg/dL. * Will reduce Lantus to 22 units daily. * Continue Novolog. 08/28: * Patient's BSG ranged 65-178 mg/dL yesterday. * Loosened carb ratio for today given trend down last night. * Increased lantus slightly to 23 units, further increase if Fasting elevated tomorrow 08/26: * Post-prandial BSGs were elevated yesterday. Novolog parameters tightened this morning. * Basal insulin 22 units added this morning which is slightly reduced from home dosing. 08/25: * 66 y/o M admitted for increased pain post fall around 3 days ago. Patient was dehydrated and in renal failure. He has history of Type 1 diabetes managed at home on basal and bolus insulins. * His usual basal dose of 25 units was taken at home yesterday morning per records. A Lantus dose scale BID was ordered for him based on BSG. He received 10 units at HS yesterday. * BSG trended down overnight and fasting was 80 mg/dl this morning. Lantus BID was discontinued. About 50% of home dose ordered for noon today. Will re- assess basal dose tomorrow. * BSG at lunch trended up to 187 mg/dl. Novolog parameters which was ordered yesterday with stress of 2, is now tightened slightly. PLAN FOR INPATIENT GLYCEMIC CONTROL: * Basal insulin * Lantus 22 units SQ QAM * Bolus insulin * NovoLog per scale ACHS or Q6hrs while NPO. * Goal Range: Low 110 mg/dL - High 140 mg/dL * Correction Factor: 25 mg/dL/unit * Nutritional / Prandial insulin per carb ratio of 1 unit per 9 grams CHO consumed
--- NOTE | 2022-08-30 15:29 | Hospitalist Progress Note ---
Date of Service August 30, 2022 Assessment & Plan (1) Rhabdomyolysis: (2) SARS-CoV-2 positive: (3) Hyperglycemia due to type 1 diabetes mellitus: (4) Acute worsening of stage 3 chronic kidney disease: (5) Weakness: (6) Fall: Plan This is a 66-year-old male who has significant past medical history of type 1 diabetes, diabetic neuropathy, diabetic proliferative retinopathy, HTN, HLD, PAD, CKD stage III, history of right BKA, history of CVA and history of osteomyelitis who presents to ED secondary to fall and weakness, found to have nontraumatic rhabdo. Fall Ambulatory dysfunction in setting of fall and known right BKA with poor ambulatory status at baseline Generalized weakness Nontraumatic Rhabdomyolysis Lactic acidosis - resolved Acute worsening of CKD stage III in setting of dehydration Received 2 L IV fluid in ED CK ordered in ED, found to be elevated to 1733, trended down with IVF IVF stopped this am and continues to hydrate orally. SNF per PT/OT recommendations. Losartan held initially with KEN, now restarted and BP appears at goal. Transaminitis likely 2/2 rhabdo-resolved follow LFTS in am pt denies abd pain SARS COV 2 asymptomatic possibly playing role in weakness does not meet criteria for tx covid isolation will monitor T1DM with hyperglycemia, neuropathy, retinopathy Lantus/novolog per protocol consult glycemic pharmacist, however, dc consult Patient is hypoglycemic now for second consecutive day. Decreased Lantus and divided into two doses, loosened Novolog coverage. hx of R BKA PAD/PVD continue asa, statin, plavix HTN continue amlodipine, losartan DVT ppx: SQ Lovenox BID 30mg Dispo: awaiting placement into SNF. FULL CODE PCP: Britney Mckeon DO [facility] Hospitalist Admission and Anticipated Discharge Date Admission Date: August 25, 2022 Subjective 66-year-old diabetic man status post right BKA presents with nontraumatic rhabdomyolysis He is tolerating p.o. and reports staying hydrated. Feels well today Did have hypoglycemia in the evening. Divided Lantus into two doses daily and loosened correction factor. He has his prosthetic leg in the room and should be using this to work with therapy Review of Systems Review of Systems: All systems reviewed and negative except as indicated above. Physical Exam Physical Exam: CONSTITUTIONAL: WNWD, vitals as above, NAD EYES: normal conjunctivae, no scleral icterus ENT: external ear and nose normal, MMM, poor dentition NECK: trachea midline RESPIRATORY: clear to auscultation bilaterally, no crackles, rales or wheezes, normal respiratory effort CARDIOVASCULAR: regular rate and rhythm, S1 and 2 heard without murmurs CHEST: inspection of chest was normal GASTROINTESTINAL: soft, nontender, Nd, no guarding MUSCULOSKELETAL: strength 5/5 throughout, head is normocephalic and atraumatic, s/p R BKA SKIN: warm and dry NEUROLOGIC: CN 2-12 grossly intact, no sensory deficit, normal cognition, normal speech, no tremor PSYCHIATRIC: alert cooperative and oriented to person, place and time. Results & Data Results & Data ([facility]) Vital Signs (Past 12 Hours) Vital Signs Temp Pulse Resp BP Pulse Ox O2 Del Method 08/30/22 07:35 Room Air 08/30/22 07:40 36.5 C 67 16 135/84 97 Room Air Medications Administered Current Inpatient Medications Acetaminophen (Acetaminophen 325 Mg Tab) 650 mg PO Q4H PRN PRN Reason: Pain or Fever Stop: 09/23/22 16:31 Amlodipine Besylate (Amlodipine Besylate 5 Mg Tab) 5 mg PO QAM [facility] Stop: 09/24/22 08:59 Last Admin: 08/30/22 08:52 Dose: 5 mg Aspirin (Aspirin 81 Mg Ectab) 81 mg PO DAILY [facility] Stop: 09/24/22 08:59 Last Admin: 08/30/22 08:52 Dose: 81 mg Clopidogrel Bisulfate (Clopidogrel Bisulfate 75 Mg Tab) 75 mg PO QAM [facility] Stop: 09/24/22 08:59 Last Admin: 08/30/22 08:52 Dose: 75 mg Dextrose (Dextrose 50% 50 Ml Syringe) 25 - 50 ml IV UD PRN; Protocol PRN Reason: Hypoglycemia Protocol Stop: 09/23/22 16:31 Docusate Sodium (Docusate Sodium 100 Mg Cap) 100 mg PO DAILY [facility] Stop: 09/24/22 08:59 Last Admin: 08/30/22 08:51 Dose: 100 mg Enoxaparin Sodium (Enoxaparin Inj 30 Mg/0.3 Ml Syr) 30 mg SQ Q12H [place] Stop: 09/23/22 21:59 Last Admin: 08/30/22 09:59 Dose: 30 mg Gabapentin (Gabapentin 300 Mg Cap) 600 mg PO BID [facility] Stop: 09/23/22 20:59 Last Admin: 08/30/22 08:52 Dose: 600 mg Glucagon (Glucagon For Inj 1 Mg Vial) 1 mg SQ UD PRN; Protocol PRN Reason: Hypoglycemia Protocol Stop: 09/23/22 16:31 Glucose (Glucose 10 Tab/Tube) 4 - 8 tab PO UD PRN; Protocol PRN Reason: Hypoglycemia Treatment Stop: 09/23/22 16:31 Glucose (Glucose 40% Gel 15 Gm Tube) 15 - 30 gm PO UD PRN; Protocol PRN Reason: Hypoglycemia Protocol Stop: 09/23/22 16:31 Last Admin: 08/27/22 20:45 Dose: 15 gm Insulin Aspart (Insulin Aspart Per Unit) 0 units SC ACHS [facility] Stop: 09/23/22 16:31 Last Admin: 08/30/22 12:34 Dose: 4 units Insulin Glargine (Lantus Per Unit Charge) 22 units SQ QAM [facility] Stop: 09/29/22 08:59 Last Admin: 08/30/22 09:05 Dose: 22 units Losartan Potassium (Losartan Potassium 25 Mg Tab) 25 mg PO QAM [facility] Stop: 09/26/22 08:59 Last Admin: 08/30/22 08:52 Dose: 25 mg Miscellaneous (Carbohydrates For Hypoglycemia ) 15 - 30 gm PO UD PRN PRN Reason: Hypoglycemia Protocol Stop: 09/23/22 16:31 Last Admin: 08/29/22 20:13 Dose: 15 gm Miscellaneous Information (Pharmacy Glycemic Mgmt Consult) 1 each N/A UD PRN PRN Reason: Consult Stop: 09/23/22 16:31 Ondansetron HCl (Ondansetron Inj 2 Mg/Ml 2 Ml Vial) 4 mg IV Q6H PRN PRN Reason: Nausea Stop: 09/23/22 16:31 Oxycodone HCl (Oxycodone Hcl Ir 5 Mg Tab (Immediate Release)) 5 mg PO Q6H PRN PRN Reason: mod-severe pain 6,7,8,9,10 Stop: 09/07/22 16:31 Last Admin: 08/25/22 21:21 Dose: 5 mg Polyethylene Glycol (Polyethylene (Miralax) 17 Gm Pack) 17 gm PO DAILY PRN PRN Reason: Constipation Stop: 09/23/22 16:31 Last Admin: 08/27/22 22:13 Dose: 17 gm (6) Fall Encounter type: initial encounter Qualified Code(s): W19.XXXA - Unspecified fall, initial encounter
[2022-08-30] MEDS: CARBOHYDRATES FOR HYPOGLYCEMIA PO PRN (17:35)
[2022-08-31 07:19] LABS: Albumin Globulin Ratio 1.1 (0.9-2); Albumin Level 3.1 gm/dl (3.4-5.0); BUN Creatinine Ratio 27.5 (10-20); Bilirubin,Total 0.6 mg/dl (0.2-1.0); Creatinine Clr Calc Pharmacy 47.5 ml/min; Est GFR (African American) 51.6 ml/min; Est GFR (Non-African American) 44.5 ml/min; Globulin 2.8 gm/dl (2.5-4.0); Potassium 4.5 mmol/L (3.5-5.1); Total Protein 5.9 gm/dl (6.0-8.3)
[2022-08-31] MEDS: INSULIN ASPART PER UNIT SC SCH ×4 (09:07→21:49)
[2022-08-31] MEDS: LANTUS PER UNIT CHARGE SQ SCH ×2 (09:08→21:48)
[2022-08-31] MEDS: amLODIPine BESYLATE 5 MG TAB PO SCH ×2 (09:12→09:18)
[2022-08-31] MEDS: ASPIRIN 81 MG ECTAB PO SCH (09:12)
[2022-08-31] MEDS: CLOPIDOGREL BISULFATE 75 MG TAB PO SCH (09:12)
[2022-08-31] MEDS: LOSARTAN POTASSIUM 25 MG TAB PO SCH (09:13)
[2022-08-31] MEDS: GABAPENTIN 300 MG CAP PO SCH ×2 (09:13→21:50)
[2022-08-31] MEDS: DOCUSATE SODIUM 100 MG CAP PO SCH ×2 (10:39→10:41)
[2022-08-31] MEDS: ENOXAPARIN INJ 30 MG/0.3 ML SYR SQ SCH ×2 (10:39→21:50)
[2022-08-31] MEDS ORDERED: SODIUM CHLORIDE 0.9% 1000ML 1,000 ML IV SCH (13:15)
--- NOTE | 2022-08-31 14:52 | Hospitalist Progress Note ---
Date of Service August 31, 2022 Assessment & Plan (1) Rhabdomyolysis: (2) SARS-CoV-2 positive: (3) Hyperglycemia due to type 1 diabetes mellitus: (4) Acute worsening of stage 3 chronic kidney disease: (5) Weakness: (6) Fall: Plan This is a 66-year-old male who has significant past medical history of type 1 diabetes, diabetic neuropathy, diabetic proliferative retinopathy, HTN, HLD, PAD, CKD stage III, history of right BKA, history of CVA and history of osteomyelitis who presents to ED secondary to fall and weakness, found to have nontraumatic rhabdo. Fall Ambulatory dysfunction in setting of fall and known right BKA with poor ambulatory status at baseline Generalized weakness Nontraumatic Rhabdomyolysis Lactic acidosis - resolved Acute worsening of CKD stage III in setting of dehydration Received 2 L IV fluid in ED CK ordered in ED, found to be elevated to 1733, trended down with IVF IVF stopped 3/2 and continues to hydrate orally but Cr uptrending to 1.6 today (from 1.2) - appears on dry side - urines studies pending, hold losartan again, maintenance IV fluids, encourage PO intake SNF per PT/OT recommendations Transaminitis likely 2/2 rhabdo-resolved follow LFTS in am pt denies abd pain SARS COV 2 asymptomatic possibly playing role in weakness does not meet criteria for tx covid isolation will monitor T1DM with hyperglycemia, neuropathy, retinopathy Lantus/novolog per protocol consult glycemic pharmacist, however, dc consult Patient is hypoglycemic now for second consecutive day. Decreased Lantus and divided into two doses, loosened Novolog coverage. hx of R BKA PAD/PVD continue asa, statin, plavix HTN continue amlodipine, losartan DVT ppx: SQ Lovenox BID 30mg Dispo: awaiting placement into SNF. FULL CODE PCP: Britney A total of 35 minutes were spent with greater than 50% of that time face to face with the patient, personally reviewing all current laboratories, imaging studies, past medication reconciliation, outpatient chart review, and discussion with specialists to collaborate care for the patient with attending and utilization of translation services. Please see attending documentation for corrections and/or additions. Admission and Anticipated Discharge Date Admission Date: August 25, 2022 Subjective Patient seen and examined in 301. Feeling well today, denying any shortness of breath. Tolerating diet and oral intake of water without issue. No additional episodes of hypoglycemia with adjustments made. No fever, chills, lightheadedness, chest pain, nausea, vomiting, abdominal pain, dysuria, diarrhea or constipation. Review of Systems Review of Systems: At least ten systems reviewed and negative except as noted in the HPI. Physical Exam Physical Exam: Gen: WD/WN, NAD, lying in bed, A&Ox3 HEENT: Normocephalic, atraumatic, conjunctivae moist, sclerae anicteric, mucous membranes dry Lung: Clear to Auscultation bilaterally, no wheezes/rales/rhonchi Heart: Regular rate, regular rhythm, no murmurs, rubs, or gallops Abdomen: Soft, NT, ND +BS x 4 Extremities: s/p R BKA, no edema Skin: Warm, no rash Results & Data Results & Data ([facility]) Vital Signs (Past 12 Hours) Vital Signs Temp Pulse Resp BP Pulse Ox O2 Del Method 08/31/22 08:14 36.6 C 60 18 129/80 97 Room Air Laboratory Results BMP 08/31/22 06:01 Sodium 137 Potassium 4.5 Chloride 106 Carbon Dioxide 27 BUN 44 H Creatinine 1.60 H Glucose 166 H Calcium 9.0 Liver Function 08/31/22 Range/Units 06:01 Total Bilirubin 0.6 (0.2-1.0) mg/dl AST 44 H (13-39) U/L ALT 92 H (7-52) U/L Alkaline Phosphatase 115 H (34-104) U/L Albumin 3.1 L (3.4-5.0) gm/dl Diagnostic Findings Chest X-Ray 08/24/22 12:07 XR chest 1V portable CLINICAL HISTORY: weakness TECHNIQUE: Single frontal radiograph of the chest was obtained. Comparison: Comparison is made to chest radiograph 04/29/2021 FINDINGS: No lines and tubes are seen. Calcified aortic knob is seen. The lungs are clear. No evidence of pleural effusion or pneumothorax. IMPRESSION: No acute chest disease. ACT 112: Negative or not required by law. Electronically signed by: Mason Vazquez M.D. 08/24/2022 12:36 PM Knee X-Ray 08/24/22 14:50 XR knee LT 1 or 2V routine CLINICAL HISTORY: knee pain, fall COMPARISON STUDY: None. FINDINGS: No acute fracture or dislocation within the left knee. Trace knee effusion. Mass or calcifications are noted. No sylvian soft tissue swelling. Small linear ossific density adjacent to the lateral knee joint is likely chronic. IMPRESSION: No acute fracture or dislocation within the left knee. ACT 112: Negative or not required by law. Electronically signed by: Efren Kenney M.D. 08/24/2022 3:35 PM Lumbar Spine X-Ray 08/24/22 14:50 AP RADIOGRAPH OF THE LUMBAR SPINE CLINICAL HISTORY: back pain, fall COMPARISON STUDY: Lumbar spine radiographs July 15, 2020. Lumbar spine CT January 19, 2021. FINDINGS: Several old right rib fractures are incidentally noted. No acute lumbar spine fracture is noted on AP projection. Evaluation of the lumbar spine is suboptimal given single projection. Disc spaces appear preserved. Bowel gas pattern is normal. Vascular calcification is incidentally noted. IMPRESSION: No lumbar spine fracture although sensitivity diminished given lack of lateral projection. ACT 112: Negative or not required by law. Electronically signed by: Julien Donovan M.D. 08/24/2022 3:40 PM (6) Fall Encounter type: initial encounter Qualified Code(s): W19.XXXA - Unspecified fall, initial encounter
[2022-09-01 06:30] LABS: Hematocrit (blood only) 36.4 % (42.0-52.0); Hemoglobin 12.2 g/dl (14.0-18.0); Mean Corpuscular Hemoglobin 29.5 pg (25.0-34.0); Mean Corpuscular Hgb Conc 33.5 g/dL (32.0-36.0); Mean Corpuscular Volume 87.9 fL (80.0-100.0); Mean Platelet Volume 11.1 fL (9.4-12.4); Platelet Count 289 K/uL (130-400); RDW Coefficient of Variation 12.4 % (11.5-14.5); RDW Standard Deviation 39.9 fL (36.4-46.3); Red Blood Count 4.14 M/uL (4.70-6.10); White Blood Count 6.49 K/ul (4.8-10.8)
[2022-09-01] MEDS: amLODIPine BESYLATE 5 MG TAB PO SCH (08:39)
[2022-09-01] MEDS: GABAPENTIN 300 MG CAP PO SCH ×2 (08:39→22:06)
[2022-09-01] MEDS: CLOPIDOGREL BISULFATE 75 MG TAB PO SCH (08:39)
[2022-09-01] MEDS: ASPIRIN 81 MG ECTAB PO SCH (08:39)
[2022-09-01] MEDS: DOCUSATE SODIUM 100 MG CAP PO SCH (08:54)
[2022-09-01] MEDS: INSULIN ASPART PER UNIT SC SCH ×4 (08:54→20:54)
[2022-09-01] MEDS: LANTUS PER UNIT CHARGE SQ SCH ×2 (08:54→22:16)
[2022-09-01 09:56] LABS: Albumin Level 3.2 gm/dl (3.4-5.0); BUN Creatinine Ratio 29.9 (10-20); Bilirubin Direct 0.1 mg/dl (0-0.2); Bilirubin,Total 0.5 mg/dl (0.2-1.0); Creatinine Clr Calc Pharmacy 52.8 ml/min; Est GFR (African American) 58.6 ml/min; Est GFR (Non-African American) 50.6 ml/min; Phosphorus 3.1 mg/dl (2.5-4.9); Potassium 4.3 mmol/L (3.5-5.1); Total Protein 5.8 gm/dl (6.0-8.3)
[2022-09-01] MEDS: ENOXAPARIN INJ 30 MG/0.3 ML SYR SQ SCH ×2 (10:06→22:08)
[2022-09-01] MEDS ORDERED: SODIUM CHLORIDE 0.9% 1000ML 1,000 ML IV SCH (11:00)
--- NOTE | 2022-09-01 13:53 | Hospitalist Progress Note ---
Date of Service September 01, 2022 Assessment & Plan (1) Rhabdomyolysis: (2) SARS-CoV-2 positive: (3) Hyperglycemia due to type 1 diabetes mellitus: (4) Acute worsening of stage 3 chronic kidney disease: (5) Weakness: (6) Fall: Plan 66-year-old male who has significant past medical history of type 1 diabetes, diabetic neuropathy, diabetic proliferative retinopathy, HTN, HLD, PAD, CKD stage III, history of right BKA, history of CVA and history of osteomyelitis who presents to ED secondary to fall and weakness, found to have nontraumatic rhabdo and tested positive for COVID-19. Fall Ambulatory dysfunction in setting of fall and known right BKA with poor ambulato ry status at baseline Generalized weakness Nontraumatic Rhabdomyolysis Lactic acidosis - resolved Acute worsening of CKD stage III in setting of dehydration Received 2 L IV fluid in ED Initial CK 1733, trended down with IVF IVF stopped 08/30 and creat up trended to 1.6 on 08/31 (from 1.2). Patient reports today that he does not like to drink water. Oral intake encouraged. Losartan held on 08/31 and patient given 1 L IVF. Creat slightly improved today to 1.4. We will give an additional 1 L IVF and continue to hold losartan. Follow-up BMP in the morning SNF per PT/OT recommendations --pending [facility] on 09/03 Transaminitis likely 2/2 rhabdo- mostly resolved SARS COV 2 asymptomatic possibly playing role in weakness does not meet criteria for tx covid isolation T1DM with hyperglycemia, neuropathy, retinopathy Hgb A1c 7.6 Lantus/novolog per protocol Had some episodes of hypoglycemia --no further recurrences since 08/30 Lantus decreased and divided into two doses, loosened Novolog coverage. hx of R BKA PAD/PVD continue asa, statin, plavix HTN continue amlodipine, losartan DVT ppx: SQ Lovenox BID 30mg Dispo: awaiting placement into SNF. FULL CODE PCP: Britney Sandoval spent a total of 25 minutes coordinating, documenting, and providing care for this patient excluding time spent in the performance of separately billed services. This included personally reviewing all current laboratories and imaging studies, medication reconciliation, outpatient chart review, and discussion with specialists. Admission and Anticipated Discharge Date Admission Date: August 25, 2022 Subjective Follow-up for fall, ambulatory dysfunction, rhabdomyolysis, COVID-19, KEN. Patient seen and examined. Sitting up in bed having lunch. Offers no complaints. Discussed with patient about increasing water intake, patient states he does not like water and prefers to only drink soda and tea. Denies chest pain and shortness of breath. Has a good appetite. Denies abdominal pain, nausea, vomiting, diarrhea. Review of Systems Review of Systems: ROS per HPI, all other systems reviewed and negative Physical Exam Constitutional: WD/WN, vitals as above Respiratory: normal respiratory effort, lungs clear to auscultation Cardiovascular: Rate/Rhythm: regular rate and regular rhythm Vessels: normal peripheral pulses Extremities: no edema Gastrointestinal (Abdomen): Percussion/Palpation: abdomen soft; abdomen nontender Musculoskeletal: S/p right BKA Skin: no rashes, warm and dry Neurologic: no focal motor deficits Psychiatric: Orientation: alert and oriented x 3 Insight: + limited insight Results & Data Results & Data ([facility]) Vital Signs (Past 12 Hours) Vital Signs Temp Pulse Resp BP Pulse Ox O2 Del Method 09/01/22 08:12 36.5 C 63 18 134/78 96 Room Air Laboratory Results Short CBC 09/01/22 Range/Units 05:50 WBC 6.49 (4.8-10.8) K/ul Hgb 12.2 L (14.0-18.0) g/dl Hct 36.4 L (42.0-52.0) % Plt Count 289 (130-400) K/uL BMP 09/01/22 05:50 Sodium 139 Potassium 4.3 Chloride 109 H Carbon Dioxide 26 BUN 43 H Creatinine 1.44 H Glucose 135 H Calcium 9.0 Liver Function 09/01/22 Range/Units 05:50 Total Bilirubin 0.5 (0.2-1.0) mg/dl Direct Bilirubin 0.1 (0-0.2) mg/dl AST 41 H (13-39) U/L ALT 86 H (7-52) U/L Alkaline Phosphatase 107 H (34-104) U/L Albumin 3.2 L (3.4-5.0) gm/dl (6) Fall Encounter type: initial encounter Qualified Code(s): W19.XXXA - Unspecified fall, initial encounter
[2022-09-01] MEDS: CARBOHYDRATES FOR HYPOGLYCEMIA PO PRN (20:56)
[2022-09-01] MEDS ORDERED: DEXTROSE 50% 50 ML SYRINGE IV STA (21:46)
[2022-09-02 06:25] LABS: Hematocrit (blood only) 36.2 % (42.0-52.0); Hemoglobin 12.3 g/dl (14.0-18.0); Mean Corpuscular Hemoglobin 30.1 pg (25.0-34.0); Mean Corpuscular Volume 88.5 fL (80.0-100.0); Mean Platelet Volume 11.2 fL (9.4-12.4); Platelet Count 293 K/uL (130-400); RDW Coefficient of Variation 12.6 % (11.5-14.5); RDW Standard Deviation 40.4 fL (36.4-46.3); Red Blood Count 4.09 M/uL (4.70-6.10); White Blood Count 7.62 K/ul (4.8-10.8)
[2022-09-02 06:38] LABS: BUN Creatinine Ratio 27.5 (10-20); Creatinine Clr Calc Pharmacy 63.4 ml/min; Est GFR (African American) 73.1 ml/min; Est GFR (Non-African American) 63.1 ml/min; Potassium 4.2 mmol/L (3.5-5.1)
[2022-09-02] MEDS: INSULIN ASPART PER UNIT SC SCH ×4 (08:36→22:13)
[2022-09-02] MEDS: ENOXAPARIN INJ 30 MG/0.3 ML SYR SQ SCH ×2 (08:49→21:54)
[2022-09-02] MEDS: GABAPENTIN 300 MG CAP PO SCH ×2 (08:50→21:52)
[2022-09-02] MEDS: CLOPIDOGREL BISULFATE 75 MG TAB PO SCH (08:50)
[2022-09-02] MEDS: ASPIRIN 81 MG ECTAB PO SCH (08:50)
[2022-09-02] MEDS: DOCUSATE SODIUM 100 MG CAP PO SCH (08:50)
[2022-09-02] MEDS: amLODIPine BESYLATE 5 MG TAB PO SCH (08:50)
[2022-09-02] MEDS: LANTUS PER UNIT CHARGE SQ SCH ×2 (08:58→22:13)
[2022-09-02] MEDS ORDERED: PHARMACY GLYCEMIC MGMT CONSULT PRN (09:08)
--- NOTE | 2022-09-02 15:08 | Hospitalist Progress Note ---
Date of Service September 02, 2022 Assessment & Plan (1) Rhabdomyolysis: (2) SARS-CoV-2 positive: (3) Hyperglycemia due to type 1 diabetes mellitus: (4) Acute worsening of stage 3 chronic kidney disease: (5) Weakness: (6) Fall: Plan per Dr. Roque's notes: 66-year-old male who has significant past medical history of type 1 diabetes, diabetic neuropathy, diabetic proliferative retinopathy, HTN, HLD, PAD, CKD stage III, history of right BKA, history of CVA and history of osteomyelitis who presents to ED secondary to fall and weakness, found to have nontraumatic rhabdo and tested positive for COVID-19. Fall Ambulatory dysfunction in setting of fall and known right BKA with poor ambulatory status at baseline Generalized weakness Nontraumatic Rhabdomyolysis Lactic acidosis - resolved Acute worsening of CKD stage III in setting of dehydration Received 2 L IV fluid in ED Initial CK 1733, trended down with IVF IVF stopped 08/30 and creat up trended to 1.6 on 08/31 (from 1.2). Patient reports today that he does not like to drink water. Oral intake encouraged. Losartan held on 08/31 and patient given 1 L IVF. Creat slightly improved today to 1.4. We will give an additional 1 L IVF and continue to hold losartan. Follow-up BMP in the morning SNF per PT/OT recommendations --pending [facility] on 09/03 09/02 stable overall crea improved to 1.2 Transaminitis likely 2/2 rhabdo- mostly resolved SARS COV 2 asymptomatic possibly playing role in weakness does not meet criteria for tx covid isolation 09/02 respiratory status stable T1DM with hyperglycemia, neuropathy, retinopathy Hgb A1c 7.6 Lantus/novolog per protocol Had some episodes of hypoglycemia --no further recurrences since 08/30 Lantus decreased and divided into two doses, loosened Novolog coverage. 09/02 (+) hypoglycemia overnight Glycemic consult placed hx of R BKA PAD/PVD continue asa, statin, plavix HTN continue amlodipine, losartan DVT ppx: SQ Lovenox BID 30mg Dispo: awaiting placement into SNF. FULL CODE PCP: Britney Admission and Anticipated Discharge Date Admission Date: August 25, 2022 Subjective ff up for weakness, COVID 19 infection, etc seen resting in chair, comfortable states he feels fine overall pleasant no chest pain, dyspnea, palpitations, dizziness no cough was hypoglycemic last night- asymptomatic no other symptoms Review of Systems Review of Systems: all noted and negative except for above Physical Exam Physical Exam: General- oriented x 3, not in distress, speaks in sentences with no effort or accessory muscle use Eyes- anicteric Neck- no JVD Lungs- clear breath sounds bilaterally, no crackles or wheezing Heart- normal rate, regular rhythm; no murmurs Abdomen- normal bowel sounds, nondistended, soft, no tenderness Extremities- no pretibial edema, no calf tenderness Neuro- alert, oriented x 3; no gross focal neurologic deficits Skin- warm & dry Results & Data Results & Data ([facility]) Vital Signs (Past 12 Hours) Vital Signs Temp Pulse Resp BP Pulse Ox O2 Del Method 09/02/22 14:58 36.5 C 64 18 135/79 100 Room Air 09/02/22 08:18 36.5 C 82 18 150/81 H 95 Room Air all noted and reviewed including below (6) Fall Encounter type: initial encounter Qualified Code(s): W19.XXXA - Unspecified fall, initial encounter
--- NOTE | 2022-09-02 16:02 | Pharmacy Report ---
Pharmacy Glycemic Short Note 2 - Date of Service September 02, 2022 - Glycemic Short BSG Results (Last 24 hours): 09/01/22 09/01/22 09/01/22 17:26 20:54 20:56 Glucose POC Glucose 93 69 L* 65 L* 09/01/22 09/02/22 09/02/22 21:16 05:33 08:17 Glucose 137 H POC Glucose 70 119 H 09/02/22 12:14 Glucose POC Glucose 139 H OUTPATIENT ANTIDIABETIC REGIMEN: * Lantus 25 units SQ QAM * Novolog 5 units ACHS * HbA1c = 7.6% on 08/25/22 ASSESSMENT: 09/02/22 * Pharmacy consult discontinued by provider on 08/30. Re-consulted on 09/02 due to patient continuing to experience hypoglycemia. * Lantus has been transitioned to BID dosing. Patient already received AM dose at time of consultation, therefore this will be continued today. I anticipate fasting BSG to trend upward given that Lantus dose was held 3/4 PM. Can transition to once daily dosing on subsequent days if desired. * Will adjust Novolog orders so that patient receives less carb coverage with dinner and at HS since this is the time of day BSG tends to be low. 08/30/22 * BSGs yesterday were 401-014-38-65/83 mg/dL. Patient received 34 units of insulin (23 units of basal and 11 units of bolus). * Fasting today is 84 mg/dL. * Will reduce Lantus to 22 units daily. * Continue Novolog. 08/28: * Patient's BSG ranged 65-178 mg/dL yesterday. * Loosened carb ratio for today given trend down last night. * Increased lantus slightly to 23 units, further increase if Fasting elevated tomorrow 08/26: * Post-prandial BSGs were elevated yesterday. Novolog parameters tightened this morning. * Basal insulin 22 units added this morning which is slightly reduced from home dosing. 08/25: * 66 y/o M admitted for increased pain post fall around 3 days ago. Patient was dehydrated and in renal failure. He has history of Type 1 diabetes managed at home on basal and bolus insulins. * His usual basal dose of 25 units was taken at home yesterday morning per records. A Lantus dose scale BID was ordered for him based on BSG. He received 10 units at HS yesterday. * BSG trended down overnight and fasting was 80 mg/dl this morning. Lantus BID was discontinued. About 50% of home dose ordered for noon today. Will re- assess basal dose tomorrow. * BSG at lunch trended up to 187 mg/dl. Novolog parameters which was ordered yesterday with stress of 2, is now tightened slightly. PLAN FOR INPATIENT GLYCEMIC CONTROL: * Basal insulin * Lantus 10 units SQ BID * Bolus insulin * NovoLog per scale ACHS or Q6hrs while NPO. * Goal Range: Low 110 mg/dL - High 140 mg/dL Breakfast/lunch: * Correction Factor: 30 mg/dL/unit * Nutritional / Prandial insulin per carb ratio of 1 unit per 11 grams CHO consumed Dinner/HS: * Correction Factor: 30 mg/dL/unit * Nutritional / Prandial insulin per carb ratio of 1 unit per 20 grams CHO consumed
[2022-09-03] MEDS ORDERED: LANTUS PER UNIT CHARGE SQ SCH (09:00)
[2022-09-03] MEDS: GABAPENTIN 300 MG CAP PO SCH (09:07)
[2022-09-03] MEDS: DOCUSATE SODIUM 100 MG CAP PO SCH (09:07)
[2022-09-03] MEDS: CLOPIDOGREL BISULFATE 75 MG TAB PO SCH (09:08)
[2022-09-03] MEDS: amLODIPine BESYLATE 5 MG TAB PO SCH (09:09)
[2022-09-03] MEDS: ASPIRIN 81 MG ECTAB PO SCH (09:09)
[2022-09-03] MEDS: INSULIN ASPART PER UNIT SC SCH ×2 (09:21→12:42)
[2022-09-03] MEDS: ENOXAPARIN INJ 30 MG/0.3 ML SYR SQ SCH (09:24)
--- NOTE | 2022-09-03 14:37 | Hospitalist Progress Note ---
Date of Service September 03, 2022 Assessment & Plan (1) Rhabdomyolysis: (2) SARS-CoV-2 positive: (3) Hyperglycemia due to type 1 diabetes mellitus: (4) Acute worsening of stage 3 chronic kidney disease: (5) Weakness: (6) Fall: Plan per Dr. Roque's notes: 66-year-old male who has significant past medical history of type 1 diabetes, diabetic neuropathy, diabetic proliferative retinopathy, HTN, HLD, PAD, CKD stage III, history of right BKA, history of CVA and history of osteomyelitis who presents to ED secondary to fall and weakness, found to have nontraumatic rhabdo and tested positive for COVID-19. Fall Ambulatory dysfunction in setting of fall and known right BKA with poor ambulatory status at baseline Generalized weakness Nontraumatic Rhabdomyolysis Lactic acidosis - resolved Acute worsening of CKD stage III in setting of dehydration, Resolved Received 2 L IV fluid in ED Initial CK 1733, trended down with IVF IVF stopped 08/30 and creat up trended to 1.6 on 08/31 (from 1.2). Patient reports today that he does not like to drink water. Oral intake encouraged. Losartan held on 08/31 and patient given 1 L IVF. Creat slightly improved today to 1.4. We will give an additional 1 L IVF and continue to hold losartan. Follow-up BMP in the morning SNF per PT/OT recommendations --pending [facility] on 09/03 09/03 stable overall crea improved to 1.2 encourage fluid intake continue PT/OT Fall Precautions pelase Transaminitis likely 2/2 rhabdo- mostly resolved SARS COV 2 asymptomatic does not meet criteria for tx covid isolation: completed 10 days 09/03 respiratory status stable T1DM with hyperglycemia, neuropathy, retinopathy Hgb A1c 7.6 Lantus/novolog per protocol Had some episodes of hypoglycemia --no further recurrences since 08/30 Lantus decreased and divided into two doses, loosened Novolog coverage. 09/03 (+) hypoglycemia noted Glycemic consult placed, recommendations: Lantus 12 units in AM * Will adjust Novolog orders so that patient receives less carb coverage with dinner and at HS since this is the time of day BSG tends to be low. Novolog Sliding Scale 16:30 and 21:00 --Goal BSG Range: Low 120_mg/dL, High 150_mg/dL --Correction Factor: 30 mg/dL/unit --Carbohydrate ratio = 20 g/unit --BSGs ACHS if eating, q6h if npo 07:30 and 11:00 --Goal BSG Range: Low 120_mg/dL, High 150_mg/dL --Correction Factor: 30 mg/dL/unit --Carbohydrate ratio = 11 g/unit --BSGs ACHS if eating, q6h if npo hx of R BKA PAD/PVD continue asa, statin, plavix HTN continue amlodipine, losartan DVT ppx: SQ Lovenox BID 30mg Dispo: d/c to SNF today ff up with PCP in 1 week FULL CODE PCP: Britney Admission and Anticipated Discharge Date Admission Date: August 25, 2022 Subjective ff up for fall, covid 19 infection, etc seen resting in bed, comfortable pleasant, smiling states he feels fine overall no new symptoms no chest pain, dyspnea, palpitations, dizziness no other symptoms states he is ready for discharge today Review of Systems Review of Systems: all noted and negative except for above Physical Exam Physical Exam: General- oriented x 3, not in distress, speaks in sentences with no effort or accessory muscle use Eyes- anicteric Neck- no JVD Lungs- clear breath sounds bilaterally, no rales/wheezes Heart- normal rate, regular rhythm; no murmurs Abdomen- normal bowel sounds, nondistended, soft, nontender Extremities- no pretibial edema, no calf tenderness s/p amputation R leg Neuro- alert, oriented x 3; no gross focal neurologic deficits Skin- warm & dry Results & Data Results & Data ([facility]) Vital Signs (Past 12 Hours) Vital Signs Temp Pulse Resp BP Pulse Ox O2 Del Method 09/03/22 08:14 36.6 C 63 16 149/79 H 96 Room Air all noted and reviewed including below (6) Fall Encounter type: initial encounter Qualified Code(s): W19.XXXA - Unspecified fall, initial encounter
--- NOTE | 2022-09-03 15:02 | Discharge Summary ---
Discharge Summary Date of Service September 03, 2022 Notes For Next Care Provider Fall precautions PT and OT evaluation Encourage daily oral fluid intake Medication Changes From Visit Lovenox 40 mg subcu daily for DVT prophylaxis Admission HPI Per Admitting Provider Chief Complaint: Recent fall 2 days ago, now with weakness lower back pain and left knee pain. Primary Care Provider: Chalo Tan DO This is a 66-year-old male who has significant past medical history of type 1 diabetes, diabetic neuropathy, diabetic proliferative retinopathy, HTN, HLD, PAD, CKD stage III, history of right BKA, history of CVA and history of osteomyelitis who presents to ED secondary to He fell off bed 2 days ago. Patient states he slid off. He denies hitting head or losing consciousness he had a hard time getting up and complained of back pain. He feels he was on the ground for 1/2 day. He was found by his brother. The brother he lives with had to call his other brother to help assist getting patient back to bed. Since event patient has been increasingly more weak and also complaining of low back pain as well as left knee pain. He denies any ot her injury. He has been taking his medications including his insulin. He denies any recent illness or sick contacts. He denies any fever, chills, sweats, lightheadedness, dizziness, chest pain, shortness breath, cough, URI symptoms, nausea, vomit, abdominal pain, change in his bowel or urinary habits. Per report from ER provider patient lives with his brother and there is concerned that he may require placement at facility. In ED patient remained hemodynamically stable. He was found to be hyperglycemic with blood sugars in the 400s. He also had a KEN with a BUN 43 and creatinine of 1.91. He did initially have lactic acidosis which resolved with 2 L of IV fluid. He did have a mild transaminitis with AST 106, ALT 112 and alk phosphatase 171. His SARS-CoV-2 was positive although asymptomatic. Chest x-ray negative for acute abnormality. Again he received 2 L bolus of IV fluid in ED. This resolved his lactic acidosis. His blood sugar was in the 360s after IV fluid. Patient appears to be a poor historian therefore uncertain if the history is accurate. Admission Exam Per Admitting Provider Constitutional: WD/WN, vitals as above, NAD, sitting up in bed, pleasant, conversing easily, decreased bed mobility Head: Normocephalic, Atraumatic Eyes: PERRL, conjunctivae normal, anicteric sclerae ENMT: external ear and nose normal, oropharynx normal with dry mucous membranes Neck: trachea midline, no thyromegaly normal visual inspection Respiratory: normal respiratory effort, lungs clear to auscultation, no wheeze, rales, rhonchi. Normal insp/exp effort, no accessory muscle use Cardiovascular: RRR, no murmur, no edema Vessels: no JVD or carotid bruit Chest: normal inspection of chest Abdomen: normal bowel sounds, soft, nontender, no hepatosplenomegaly Musculoskeletal: no cyanosis or clubbing, R BKA, LLE w/o deformity, superficial abrasion to lateral aspect of L knee Skin: no rashes, warm and dry normal turgor Neurologic: PERRL, EOMI, accommodation nl, no face palsy, no dysarthria CN's II-XI intact bilaterally and moves all extremities Psychiatric: A+Ox3 to basics only, euthymic affect Lymphatic: no cervical or axillary lymphadenopathy : deferred Principal Dx & Hospital Course #1 = Principal Diagnosis (1) Rhabdomyolysis: (2) SARS-CoV-2 positive: (3) Hyperglycemia due to type 1 diabetes mellitus: (4) Acute worsening of stage 3 chronic kidney disease: (5) Weakness: (6) Fall: Plan per Dr. Roque's notes: 66-year-old male who has significant past medical history of type 1 diabetes, diabetic neuropathy, diabetic proliferative retinopathy, HTN, HLD, PAD, CKD sta ge III, history of right BKA, history of CVA and history of osteomyelitis who presents to ED secondary to fall and weakness, found to have nontraumatic rhabdo and tested positive for COVID-19. Fall Ambulatory dysfunction in setting of fall and known right BKA with poor ambulatory status at baseline Generalized weakness Nontraumatic Rhabdomyolysis Lactic acidosis - resolved Acute worsening of CKD stage III in setting of dehydration, Resolved Received 2 L IV fluid in ED Initial CK 1733, trended down with IVF crea improved from 1.6 to 1.2 3/6 stable overall crea improved to 1.2 encourage fluid intake repeat basic metabolic profile in 1 week continue PT/OT Fall Precautions pelase Transaminitis likely 2/2 rhabdo- mostly resolved SARS COV 2 asymptomatic does not meet criteria for tx covid isolation: completed 10 days 09/03 respiratory status stable T1DM with hyperglycemia, neuropathy, retinopathy Hgb A1c 7.6 Lantus/novolog per protocol Had some episodes of hypoglycemia --no further recurrences since 08/30 Lantus decreased and divided into two doses, loosened Novolog coverage. 09/03 (+) hypoglycemia noted Glycemic consult placed, recommendations: Lantus 12 units in AM * Will adjust Novolog orders so that patient receives less carb coverage with dinner and at HS since this is the time of day BSG tends to be low. Novolog Sliding Scale 16:30 and 21:00 --Goal BSG Range: Low 120_mg/dL, High 150_mg/dL --Correction Factor: 30 mg/dL/unit --Carbohydrate ratio = 20 g/unit --BSGs ACHS if eating, q6h if npo 07:30 and 11:00 --Goal BSG Range: Low 120_mg/dL, High 150_mg/dL --Correction Factor: 30 mg/dL/unit --Carbohydrate ratio = 11 g/unit --BSGs ACHS if eating, q6h if npo hx of R BKA PAD/PVD continue asa, statin, plavix HTN continue amlodipine, losartan DVT ppx: SQ Lovenox 40mg daily Dispo: d/c to SNF today ff up with PCP in 1 week FULL CODE PCP: [facility] Discharge Exam General- oriented x 3, not in distress, speaks in sentences with no effort or accessory muscle use Eyes- anicteric Neck- no JVD Lungs- clear breath sounds bilaterally, no rales/wheezes Heart- normal rate, regular rhythm; no murmurs Abdomen- normal bowel sounds, nondistended, soft, nontender Extremities- no pretibial edema, no calf tenderness s/p amputation R leg Neuro- alert, oriented x 3; no gross focal neurologic deficits Skin- warm & dry Updated Medication List Medication Instructions Recorded Confirmed Type amlodipine 5 mg tablet 5 mg PO QAM 10/19/18 08/24/22 History fexofenadine 60 mg-pseudoephedrine 1 tab PO BID #14 tabs 07/08/20 08/24/22 Rx ER 120 mg tablet,ext.release,12 hr ([facility]-D 12 Hour) clopidogrel 75 mg tablet 75 mg PO QAM #30 tabs 12/31/20 08/24/22 Rx gabapentin 300 mg capsule 600 mg PO BID 01/17/21 08/24/22 History losartan 25 mg tablet 25 mg PO QAM 01/17/21 08/24/22 History aspirin 81 mg tablet,delayed 81 mg PO DAILY #30 tabs 04/07/21 08/24/22 Rx release (Adult Aspirin Regimen) acetaminophen 325 mg tablet 650 mg PO Q4H PRN pain #60 tabs 05/09/21 08/24/22 Rx docusate sodium 100 mg capsule 100 mg PO DAILY #30 caps 05/09/21 08/24/22 Rx insulin aspart U-100 100 unit/mL 5 unit (0.05 mL) SC ACHS #15 mL 05/09/21 08/24/22 Rx (3 mL) subcutaneous pen (Novolog FlexPen U-100 Insulin aspart) oxycodone 5 mg tablet 5 mg PO Q6H PRN pain #8 tabs 05/09/21 08/24/22 Rx insulin glargine 100 unit/mL (3 25 unit subcut QAM 08/24/22 08/24/22 History mL) subcutaneous pen (Lantus Solostar U-100 Insulin) enoxaparin 30 mg/0.3 mL 40 mg (0.4 mL) subcut DAILY 30 09/03/22 Rx subcutaneous syringe (Lovenox) days #12 mL Hospital Stay Data Consultations 08/24/22 14:09 ED Decision to Admit Stat Pending Results Patient Have Any Pending Studies at Discharge: No Discharge Instructions Given to Patient (Per Discharging Provider) Please refer to accompanying hospital discharge summary for full details. 1. Repeat basic metabolic profile in 1 week to re-evaluate renal function. 2. NovoLog sliding scale as follows: 07:30 and 11:00 --Goal BSG Range: Low 120_mg/dL, High 150_mg/dL --Correction Factor: 30 mg/dL/unit --Carbohydrate ratio = 11 g/unit --BSGs ACHS if eating, q6h if npo 16:30 and 21:00 --Goal BSG Range: Low 120_mg/dL, High 150_mg/dL --Correction Factor: 30 mg/dL/unit --Carbohydrate ratio = 20 g/unit --BSGs ACHS if eating, q6h if npo Total Time Total Time Spent Total Time Spent (In Minutes): > 30 minutes
== END 2022-09-03 15:38 | DRG 682 ==
LOC: ED 11:49 → 2W 11:49 → SUATTDRO 14:19 → 2W 15:16 → SUATTDRO 08-25 11:21 → 3E 08-30 01:26